=== PATIENT | male | born 1965 | race Hispanic/Latino ===

== ENCOUNTER 2019-03-10 16:28 | Inpatient (IN) | payer MEDICARE ==
[2019-03-10] MEDS ORDERED: TYLENOL PO ONE (17:49)
[2019-03-10 18:17] LABS: Hematocrit 23.2 % (35.5-45.6); Hemoglobin 7.9 gm/dl (11.8-15.2); Mean Corpuscular HGB Conc 34 % (32-34); Mean Corpuscular Volume 94 fl (84-94); Red Blood Count 2.46 M/mm3 (3.65-5.03); Red Cell Distribution Width 18.2 % (13.2-15.2)
[2019-03-10 18:27] LABS: Platelet Count 47 K/mm3 (140-440)
[2019-03-10 18:28] LABS: INR 1.15 (0.87-1.13); Partial Thromboplastin Time 28.8 Sec. (24.2-36.6)
--- NOTE | 2019-03-10 18:33 | Emergency Department Report ---
ED Fever HPI - General Chief Complaint: Fever Stated Complaint: SOB/COUGH/COLD/BODY PAIN Time Seen by Provider: 03/10/19 17:47 Source: patient, old records (no old [facility]) Exam Limitations: no limitations - History of Present Illness Initial Comments: 54-year-old male with a past medical history diabetes, hypertension, chronic renal insufficency, CAD with stent x2 placement to have signs of generalized body aches, fevers, cough, sore throat, and congestion. Patient received albuterol neb 5 mg prior to arrival via EMS. He denies history of wheezing or chronic lung disease. Patient cough is productive of dean sputum and he denies hemoptysis. He has denies recent travel, sick contacts, smoking history, receiving flu shot, or pneumonia shot this season. Patient states he takes blood thinners. Medication list reviewed and patient is on aspirin and Plavix. Pt is a poor historian. Patient's family showed up at 9:15 PM. His daughter and sister at the bedside. Patient lives with the sister but speaks to the daughter daily. Daughter states that he had in abscessed tooth and complained of some chills and that he couldn't get warm today. Patient did not complain of dental pain during my examination. Sister states that he's been complaining of generalized body aches for the past month but today he complained of chills and had some body shakes. He is recently insured and has recently been receiving outpatient workup with a variety of doctors including a primary care doctor, level vial marker, and kidney specialist in the last several weeks. He was diagnosed with "stage III" kidney disease last year at [facility] and just initiated follow-up not he has insurance. Primary care doctor is Dr Xiong. Net Software Engineer may be asha heart, unsure of kidneys specialist at this time. ED Review of Systems ROS: Stated complaint: SOB/COUGH/COLD/BODY PAIN Other details as noted in HPI Comment: All other systems reviewed and negative ED Past Medical Hx - Past Medical History Previous Medical History?: Yes Hx Hypertension: Yes Hx Diabetes: Yes - Surgical History Past Surgical History?: Yes Hx Coronary Stent: Yes - Social History Smoking Status: Never Smoker Substance Use Type: None - Medications Home Medications: Home Medications Medication Instructions Recorded Confirmed Last Taken Type Allopurinol [Zyloprim] 300 mg PO DAILY 03/10/19 03/10/19 Unknown History Aspirin [Adult Aspirin] 81 mg PO DAILY 03/10/19 03/10/19 Unknown History Atorvastatin [Lipitor Tab] 80 mg PO DAILY 03/10/19 03/10/19 Unknown History Carvedilol [Coreg] 12.5 mg PO BID 03/10/19 03/10/19 Unknown History Clopidogrel [Plavix] 75 mg PO DAILY 03/10/19 03/10/19 Unknown History Gabapentin [Neurontin] 300 mg PO BID 03/10/19 03/10/19 Unknown History Insulin Lispro Protamin/Lispro 33 unit SQ BID 03/10/19 03/10/19 Unknown History [Humalog Mix 75-25 Vial] Lisinopril [Zestril TAB] 10 mg PO DAILY 03/10/19 03/10/19 Unknown History Pantoprazole [Protonix] 40 mg PO DAILY 03/10/19 03/10/19 Unknown History Sitagliptin Phosphate [Januvia] 50 mg PO DAILY 03/10/19 03/10/19 Unknown History ED Physical Exam - General Limitations: No Limitations - Other Other exam information: General: No limitations, patient is alert in no acute distress Head exam: Atraumatic, normocephalic Eyes exam: Normal appearance, pupils equal reactive to light, extraocular movements intact ENT: Moist mucous membrane, normal oropharynx without pharyngeal exudates or edema Neck exam: Normal inspection, full range of motion, no meningismus nontender Respiratory exam: Clear to auscultation bilateral, no wheezes, rales, crackles Cardiovascular: Normal rate and rhythm Abdomen: Soft, nondistended, and nontender, with normal bowel sounds, no rebound, or guarding Rectal: Guaiac negative brown stool Extremity: Full range of motion normal inspection no deformity Back: Normal Inspection, full range of motion, no tenderness Neurologic: Alert, oriented x3, cranial nerves intact, no motor or sensory deficit Psychiatric: normal affect, normal mood Skin: Warm, dry, intact ED Course Vital Signs 03/10/19 03/10/19 03/10/19 17:28 17:30 17:31 Temperature 102.4 F H Pulse Rate 106 H Respiratory 24 Rate Blood Pressure 165/60 Blood Pressure 165/60 [Left] O2 Sat by Pulse 93 99 92 Oximetry 03/10/19 03/10/19 03/10/19 17:45 18:00 18:16 Temperature Pulse Rate 114 H Respiratory 19 Rate Blood Pressure 185/135 134/116 176/78 Blood Pressure [Left] O2 Sat by Pulse 84 Oximetry 03/10/19 03/10/19 03/10/19 18:31 18:43 18:45 Temperature Pulse Rate 104 H 103 H Respiratory 27 H 19 Rate Blood Pressure 172/79 134/116 Blood Pressure [Left] O2 Sat by Pulse 88 99 Oximetry 03/10/19 03/10/19 03/10/19 19:01 19:15 19:30 Temperature Pulse Rate Respiratory 19 17 Rate Blood Pressure 134/116 94/53 94/53 Blood Pressure [Left] O2 Sat by Pulse 61 L 88 62 L Oximetry 03/10/19 03/10/19 03/10/19 19:52 20:00 20:49 Temperature Pulse Rate 100 H 90 79 Respiratory 22 15 Rate Blood Pressure 106/64 Blood Pressure 94/53 [Left] O2 Sat by Pulse 94 100 99 Oximetry 03/10/19 03/10/19 03/10/19 21:00 21:15 21:30 Temperature Pulse Rate 78 76 80 Respiratory 15 17 12 Rate Blood Pressure 99/26 98/34 107/37 Blood Pressure [Left] O2 Sat by Pulse 100 100 Oximetry 03/10/19 03/10/19 03/10/19 21:32 21:45 22:13 Temperature Pulse Rate 81 79 Respiratory 18 14 Rate Blood Pressure 98/50 96/42 Blood Pressure [Left] O2 Sat by Pulse 100 100 100 Oximetry 03/10/19 03/10/19 03/10/19 22:15 22:30 22:45 Temperature Pulse Rate 81 80 80 Respiratory 21 16 18 Rate Blood Pressure 97/35 119/38 113/33 Blood Pressure [Left] O2 Sat by Pulse 100 100 100 Oximetry 03/10/19 03/10/19 03/10/19 23:00 23:15 23:31 Temperature Pulse Rate 80 80 77 Respiratory 18 18 51 H Rate Blood Pressure 119/37 123/35 110/92 Blood Pressure [Left] O2 Sat by Pulse 100 100 88 Oximetry 03/10/19 03/10/19 03/11/19 23:45 23:54 00:00 Temperature Pulse Rate 84 Respiratory 18 17 21 Rate Blood Pressure 120/65 98/50 144/48 Blood Pressure [Left] O2 Sat by Pulse 100 100 100 Oximetry 03/11/19 03/11/19 03/11/19 00:05 00:15 00:30 Temperature Pulse Rate 84 81 82 Respiratory 18 20 Rate Blood Pressure 144/48 144/48 139/46 Blood Pressure [Left] O2 Sat by Pulse 100 100 100 Oximetry 03/11/19 03/11/19 03/11/19 00:45 01:01 01:15 Temperature Pulse Rate 84 90 Respiratory 35 H 40 H 39 H Rate Blood Pressure 152/43 136/89 140/78 Blood Pressure [Left] O2 Sat by Pulse 100 97 97 Oximetry 03/11/19 01:31 Temperature Pulse Rate Respiratory 38 H Rate Blood Pressure 97/57 Blood Pressure [Left] O2 Sat by Pulse 98 Oximetry - Reevaluation(s) Reevaluation #1: 03/10/19 21:30 At 19:40 pt was receiving portable x-ray. X-ray tech supports the patient was lying on his right side. Patient was supposed to be on oxygen via nasal cannula but patient kept taking oxygen off his face. He complained of feeling short of breath and had difficulty repositioning on his back for x-ray. They came out to get help, when she went back in the room patient was unresponsive, apneic, and without a palpable pulse. ACLS initiated with chest compressions and assisted [id number] ventilation. Patient was transported to a resuscitation room. Patient had a PEA rhythm. Patient was intubated and 2 doses of epinephrine were administrated then patient had return of spontaneous circulation. Initial blood pressure was normal but then subsequently dropped despite 2 L of normal saline. Third liter ordered and Levophed initiated with improvement in MAP. Reevaluation #2: 03/10/19 23:42 Patient has synchronized jerking movements noted to upper and lower extremities after NG tube placement. Ativan 1 mg dose ordered Reevaluation #3: 03/10/19 23:46 CAT scan and chest x-ray reports received. Requested an addendum to include comment for regarding central line position - Consultations Consultation #1: 03/10/19 22:05 case d/w DR Lor Downs with [facility] regarding post arrest rhythm. will consult - Central Line Placement Left IJ Consent Obtained: emergent situation Time Out Performed: Yes Patient Placed on Monitor/Pulse Ox: Yes Prep: mask, gown, gloves, other Central Line Prep: Chlorhexidine scrub, sterile drapes applied Local Anesthesia Used: Lidocaine 1% Amount of Anesthesia Used (mls): 5 Ultrasound Used for Placement: Yes Central Line Lumen Inserted: triple Bloods Obtained for Lab: Yes Central Line Position: good blood return, all ports aspirated, flus Dressing Applied: Tegaderm Post Procedure X-Ray: tip of catheter in good p Patient Tolerated Procedure: well Complications: none - Intubation Time Out Performed: Yes Sedative: none Paralytic: other (none) Laryngoscope: Janny Size: 3 ET Tube Size: 7.5 Tube Secured Depth (cm): 25 (readjusted to 23 after xray) Tube Secured Location: lips Tube Placement Confirmation: visualized tube passing t, equal breath sounds bilat, no breath sounds over epi, confirmation by capnometr Patient Tolerated Procedure: well Intubation Complications: none ED Medical Decision Making - Lab Data Result diagrams: 03/10/19 17:57 03/10/19 17:57 Lab Results 03/10/19 03/10/19 03/10/19 Range/Units 17:57 17:57 17:57 WBC 1.2 L* (4.5-11.0) K/mm3 RBC 2.46 L (3.65-5.03) M/mm3 Hgb 7.9 L (11.8-15.2) gm/dl Hct 23.2 L (35.5-45.6) % MCV 94 (84-94) fl MCH 32 (28-32) pg MCHC 34 (32-34) % RDW 18.2 H (13.2-15.2) % Plt Count 47 L (140-440) K/mm3 [place] % (Auto) Combination Window Installer Eos % (Auto) 0.4 (0.0-4.3) % [place] # 0.9 H (0.0-0.8) K/mm3 Eos # 0.0 (0.0-0.4) K/mm3 Baso # 0.0 (0.0-0.1) K/mm3 Add Manual Diff Complete Total Counted 100 Seg Neuts % (Manual) 6.0 L (40.0-70.0) % Band Neutrophils % 0 % Lymphocytes % (Manual) 74.0 H (13.4-35.0) % Reactive Lymphs % (Man) 0 % Monocytes % (Manual) 20.0 H (0.0-7.3) % Eosinophils % (Manual) 0 (0.0-4.3) % Basophils % (Manual) 0 (0.0-1.8) % Metamyelocytes % 0 % Myelocytes % 0 % Promyelocytes % 0 % Blast Cells % 0 % Nucleated RBC % Not Reportable Seg Neutrophils # 0.1 L (1.8-7.7) K/mm3 Seg Neutrophils # Man 0.1 L (1.8-7.7) K/mm3 Band Neutrophils # 0.0 K/mm3 Lymphocytes # (Manual) 0.9 L (1.2-5.4) K/mm3 Abs React Lymphs (Man) 0.0 K/mm3 Monocytes # (Manual) 0.2 (0.0-0.8) K/mm3 Eosinophils # (Manual) 0.0 (0.0-0.4) K/mm3 Basophils # (Manual) 0.0 (0.0-0.1) K/mm3 Metamyelocytes # 0.0 K/mm3 Myelocytes # 0.0 K/mm3 Promyelocytes # 0.0 K/mm3 Blast Cells # 0.0 K/mm3 WBC Morphology Not Reportable Hypersegmented Neuts Not Reportable Hyposegmented Neuts Not Reportable Hypogranular Neuts Not Reportable Smudge Cells Not Reportable Toxic Granulation Not Reportable Toxic Vacuolation Not Reportable Dohle Bodies Not Reportable Pelger-Huet Anomaly Not Reportable Roque Rods Not Reportable Platelet Estimate Appears decreased Clumped Platelets Not Reportable Plt Clumps, EDTA Not Reportable Large Platelets Not Reportable Giant Platelets Not Reportable Platelet Satelliting Not Reportable Plt Morphology Comment Not Reportable RBC Morphology Not Reportable Dimorphic RBCs Not Reportable Polychromasia Not Reportable Hypochromasia Not Reportable Poikilocytosis 1+ Anisocytosis 1+ Microcytosis Not Reportable Macrocytosis Not Reportable Spherocytes Not Reportable Pappenheimer Bodies Not Reportable Sickle Cells Not Reportable Target Cells Not Reportable Tear Drop Cells Not Reportable Ovalocytes Few Helmet Cells Not Reportable Andersen-Clara Bodies Not Reportable Maiden Rings Not Reportable [place] Cells Not Reportable Bite Cells Not Reportable Crenated Cell Not Reportable Elliptocytes Few Acanthocytes (Spur) Not Reportable Rouleaux Not Reportable Hemoglobin C Crystals Not Reportable Schistocytes Not Reportable Malaria parasites Not Reportable Matt Bodies Not Reportable Hem Pathologist Commnt Sent to pathology PT (12.2-14.9) Sec. INR (0.87-1.13) APTT (24.2-36.6) Sec. POC ABG pH (7.35-7.45) POC ABG pCO2 (35-45) POC ABG pO2 (80-105) POC ABG HCO3 (22-26 mml/L) POC ABG Total CO2 (23-27mmol/L) POC ABG O2 Sat POC ABG Base Excess ((-2) - (+3)mmol/L) VBG pH (7.320-7.420) FiO2 % Sodium 140 (137-145) mmol/L Potassium 4.5 (3.6-5.0) mmol/L Chloride 101.1 (98-107) mmol/L Carbon Dioxide 23 (22-30) mmol/L Anion Gap 20 mmol/L BUN 46 H (9-20) mg/dL Creatinine 2.9 H (0.8-1.5) mg/dL Estimated GFR 23 ml/min BUN/Creatinine Ratio 16 % Glucose 200 H (75-100) mg/dL POC Glucose (70-105) Lactic Acid 2.50 H* (0.7-2.0) mmol/L Calcium 7.6 L (8.4-10.2) mg/dL Total Bilirubin 0.90 (0.1-1.2) mg/dL AST 23 (5-40) units/L ALT 21 (7-56) units/L Alkaline Phosphatase 128 (35-129) units/L Total Protein 6.5 (6.3-8.2) g/dL Albumin 3.2 L (3.9-5) g/dL Albumin/Globulin Ratio 1.0 % Influenza A (Rapid) (Negative) Influenza B (Rapid) (Negative) Blood Type Antibody Screen 03/10/19 03/10/19 03/10/19 Range/Units 17:57 17:57 18:00 WBC (4.5-11.0) K/mm3 RBC (3.65-5.03) M/mm3 Hgb (11.8-15.2) gm/dl Hct (35.5-45.6) % MCV (84-94) fl MCH (28-32) pg MCHC (32-34) % RDW (13.2-15.2) % Plt Count (140-440) K/mm3 [place] % (Auto) Eos % (Auto) (0.0-4.3) % [place] # (0.0-0.8) K/mm3 Eos # (0.0-0.4) K/mm3 Baso # (0.0-0.1) K/mm3 Add Manual Diff Total Counted Seg Neuts % (Manual) (40.0-70.0) % Band Neutrophils % % Lymphocytes % (Manual) (13.4-35.0) % Reactive Lymphs % (Man) % Monocytes % (Manual) (0.0-7.3) % Eosinophils % (Manual) (0.0-4.3) % Basophils % (Manual) (0.0-1.8) % Metamyelocytes % % Myelocytes % % Promyelocytes % % Blast Cells % % Nucleated RBC % Seg Neutrophils # (1.8-7.7) K/mm3 Seg Neutrophils # Man (1.8-7.7) K/mm3 Band Neutrophils # K/mm3 Lymphocytes # (Manual) (1.2-5.4) K/mm3 Abs React Lymphs (Man) K/mm3 Monocytes # (Manual) (0.0-0.8) K/mm3 Eosinophils # (Manual) (0.0-0.4) K/mm3 Basophils # (Manual) (0.0-0.1) K/mm3 Metamyelocytes # K/mm3 Myelocytes # K/mm3 Promyelocytes # K/mm3 Blast Cells # K/mm3 WBC Morphology Hypersegmented Neuts Hyposegmented Neuts Hypogranular Neuts Smudge Cells Toxic Granulation Toxic Vacuolation Dohle Bodies Pelger-Huet Anomaly Roque Rods Platelet Estimate Clumped Platelets Plt Clumps, EDTA Large Platelets Giant Platelets Platelet Satelliting Plt Morphology Comment RBC Morphology Dimorphic RBCs Polychromasia Hypochromasia Poikilocytosis Anisocytosis Microcytosis Macrocytosis Spherocytes Pappenheimer Bodies Sickle Cells Target Cells Tear Drop Cells Ovalocytes Helmet Cells Andersen-Clara Bodies Maiden Rings [place] Cells Bite Cells Crenated Cell Elliptocytes Acanthocytes (Spur) Rouleaux Hemoglobin C Crystals Schistocytes Malaria parasites Matt Bodies Hem Pathologist Commnt PT 14.4 (12.2-14.9) Sec. INR 1.15 H (0.87-1.13) APTT 28.8 (24.2-36.6) Sec. POC ABG pH (7.35-7.45) POC ABG pCO2 (35-45) POC ABG pO2 (80-105) POC ABG HCO3 (22-26 mml/L) POC ABG Total CO2 (23-27mmol/L) POC ABG O2 Sat POC ABG Base Excess ((-2) - (+3)mmol/L) VBG pH 7.381 (7.320-7.420) FiO2 % Sodium (137-145) mmol/L Potassium (3.6-5.0) mmol/L Chloride (98-107) mmol/L Carbon Dioxide (22-30) mmol/L Anion Gap mmol/L BUN (9-20) mg/dL Creatinine (0.8-1.5) mg/dL Estimated GFR ml/min BUN/Creatinine Ratio % Glucose (75-100) mg/dL POC Glucose (70-105) Lactic Acid (0.7-2.0) mmol/L Calcium (8.4-10.2) mg/dL Total Bilirubin (0.1-1.2) mg/dL AST (5-40) units/L ALT (7-56) units/L Alkaline Phosphatase (35-129) units/L Total Protein (6.3-8.2) g/dL Albumin (3.9-5) g/dL Albumin/Globulin Ratio % Influenza A (Rapid) Negative (Negative) Influenza B (Rapid) Negative (Negative) Blood Type Antibody Screen 03/10/19 03/10/19 03/10/19 Range/Units 18:01 18:52 19:16 WBC (4.5-11.0) K/mm3 RBC (3.65-5.03) M/mm3 Hgb (11.8-15.2) gm/dl Hct (35.5-45.6) % MCV (84-94) fl MCH (28-32) pg MCHC (32-34) % RDW (13.2-15.2) % Plt Count (140-440) K/mm3 [place] % (Auto) Eos % (Auto) (0.0-4.3) % [place] # (0.0-0.8) K/mm3 Eos # (0.0-0.4) K/mm3 Baso # (0.0-0.1) K/mm3 Add Manual Diff Total Counted Seg Neuts % (Manual) (40.0-70.0) % Band Neutrophils % % Lymphocytes % (Manual) (13.4-35.0) % Reactive Lymphs % (Man) % Monocytes % (Manual) (0.0-7.3) % Eosinophils % (Manual) (0.0-4.3) % Basophils % (Manual) (0.0-1.8) % Metamyelocytes % % Myelocytes % % Promyelocytes % % Blast Cells % % Nucleated RBC % Seg Neutrophils # (1.8-7.7) K/mm3 Seg Neutrophils # Man (1.8-7.7) K/mm3 Band Neutrophils # K/mm3 Lymphocytes # (Manual) (1.2-5.4) K/mm3 Abs React Lymphs (Man) K/mm3 Monocytes # (Manual) (0.0-0.8) K/mm3 Eosinophils # (Manual) (0.0-0.4) K/mm3 Basophils # (Manual) (0.0-0.1) K/mm3 Metamyelocytes # K/mm3 Myelocytes # K/mm3 Promyelocytes # K/mm3 Blast Cells # K/mm3 WBC Morphology Hypersegmented Neuts Hyposegmented Neuts Hypogranular Neuts Smudge Cells Toxic Granulation Toxic Vacuolation Dohle Bodies Pelger-Huet Anomaly Roque Rods Platelet Estimate Clumped Platelets Plt Clumps, EDTA Large Platelets Giant Platelets Platelet Satelliting Plt Morphology Comment RBC Morphology Dimorphic RBCs Polychromasia Hypochromasia Poikilocytosis Anisocytosis Microcytosis Macrocytosis Spherocytes Pappenheimer Bodies Sickle Cells Target Cells Tear Drop Cells Ovalocytes Helmet Cells Andersen-Clara Bodies Maiden Rings [place] Cells Bite Cells Crenated Cell Elliptocytes Acanthocytes (Spur) Rouleaux Hemoglobin C Crystals Schistocytes Malaria parasites Matt Bodies Hem Pathologist Commnt PT (12.2-14.9) Sec. INR (0.87-1.13) APTT (24.2-36.6) Sec. POC ABG pH (7.35-7.45) POC ABG pCO2 (35-45) POC ABG pO2 (80-105) POC ABG HCO3 (22-26 mml/L) POC ABG Total CO2 (23-27mmol/L) POC ABG O2 Sat POC ABG Base Excess ((-2) - (+3)mmol/L) VBG pH (7.320-7.420) FiO2 % Sodium (137-145) mmol/L Potassium (3.6-5.0) mmol/L Chloride (98-107) mmol/L Carbon Dioxide (22-30) mmol/L Anion Gap mmol/L BUN (9-20) mg/dL Creatinine (0.8-1.5) mg/dL Estimated GFR ml/min BUN/Creatinine Ratio % Glucose (75-100) mg/dL POC Glucose 234 H (70-105) Lactic Acid 2.80 H* (0.7-2.0) mmol/L Calcium (8.4-10.2) mg/dL Total Bilirubin (0.1-1.2) mg/dL AST (5-40) units/L ALT (7-56) units/L Alkaline Phosphatase (35-129) units/L Total Protein (6.3-8.2) g/dL Albumin (3.9-5) g/dL Albumin/Globulin Ratio % Influenza A (Rapid) (Negative) Influenza B (Rapid) (Negative) Blood Type A POSITIVE Antibody Screen Negative 03/10/19 03/10/19 03/10/19 Range/Units 20:56 21:32 23:29 WBC (4.5-11.0) K/mm3 RBC (3.65-5.03) M/mm3 Hgb (11.8-15.2) gm/dl Hct (35.5-45.6) % MCV (84-94) fl MCH (28-32) pg MCHC (32-34) % RDW (13.2-15.2) % Plt Count (140-440) K/mm3 [place] % (Auto) Eos % (Auto) (0.0-4.3) % [place] # (0.0-0.8) K/mm3 Eos # (0.0-0.4) K/mm3 Baso # (0.0-0.1) K/mm3 Add Manual Diff Total Counted Seg Neuts % (Manual) (40.0-70.0) % Band Neutrophils % % Lymphocytes % (Manual) (13.4-35.0) % Reactive Lymphs % (Man) % Monocytes % (Manual) (0.0-7.3) % Eosinophils % (Manual) (0.0-4.3) % Basophils % (Manual) (0.0-1.8) % Metamyelocytes % % Myelocytes % % Promyelocytes % % Blast Cells % % Nucleated RBC % Seg Neutrophils # (1.8-7.7) K/mm3 Seg Neutrophils # Man (1.8-7.7) K/mm3 Band Neutrophils # K/mm3 Lymphocytes # (Manual) (1.2-5.4) K/mm3 Abs React Lymphs (Man) K/mm3 Monocytes # (Manual) (0.0-0.8) K/mm3 Eosinophils # (Manual) (0.0-0.4) K/mm3 Basophils # (Manual) (0.0-0.1) K/mm3 Metamyelocytes # K/mm3 Myelocytes # K/mm3 Promyelocytes # K/mm3 Blast Cells # K/mm3 WBC Morphology Hypersegmented Neuts Hyposegmented Neuts Hypogranular Neuts Smudge Cells Toxic Granulation Toxic Vacuolation Dohle Bodies Pelger-Huet Anomaly Roque Rods Platelet Estimate Clumped Platelets Plt Clumps, EDTA Large Platelets Giant Platelets Platelet Satelliting Plt Morphology Comment RBC Morphology Dimorphic RBCs Polychromasia Hypochromasia Poikilocytosis Anisocytosis Microcytosis Macrocytosis Spherocytes Pappenheimer Bodies Sickle Cells Target Cells Tear Drop Cells Ovalocytes Helmet Cells Andersen-Clara Bodies Maiden Rings [place] Cells Bite Cells Crenated Cell Elliptocytes Acanthocytes (Spur) Rouleaux Hemoglobin C Crystals Schistocytes Malaria parasites Matt Bodies Hem Pathologist Commnt PT (12.2-14.9) Sec. INR (0.87-1.13) APTT (24.2-36.6) Sec. POC ABG pH 7.274 L 7.386 (7.35-7.45) POC ABG pCO2 46.6 H 36.6 (35-45) POC ABG pO2 315 H (80-105) POC ABG HCO3 21.6 21.9 (22-26 mml/L) POC ABG Total CO2 23 23 (23-27mmol/L) POC ABG O2 Sat 71 100 POC ABG Base Excess -5 -3 ((-2) - (+3)mmol/L) VBG pH (7.320-7.420) FiO2 100 100 % Sodium (137-145) mmol/L Potassium (3.6-5.0) mmol/L Chloride (98-107) mmol/L Carbon Dioxide (22-30) mmol/L Anion Gap mmol/L BUN (9-20) mg/dL Creatinine (0.8-1.5) mg/dL Estimated GFR ml/min BUN/Creatinine Ratio % Glucose (75-100) mg/dL POC Glucose 237 H (70-105) Lactic Acid (0.7-2.0) mmol/L Calcium (8.4-10.2) mg/dL Total Bilirubin (0.1-1.2) mg/dL AST (5-40) units/L ALT (7-56) units/L Alkaline Phosphatase (35-129) units/L Total Protein (6.3-8.2) g/dL Albumin (3.9-5) g/dL Albumin/Globulin Ratio % Influenza A (Rapid) (Negative) Influenza B (Rapid) (Negative) Blood Type Antibody Screen - EKG Data -: EKG Interpreted by Me (anterior infarct age unknown, prolonged OK interval) EKG shows normal: sinus rhythm, axis (qrs -47), QRS complexes (qrsd 95), ST-T waves (no stei, ) Rate: tachycardia (105) - EKG Data 03/10/19 21:48 The rest EKG shows atrial fibrillation rate 79 with left axis deviation. QRS axis -30, QRS duration 77. No ST elevation DC. - Radiology Data Radiology results: report reviewed PROCEDURE: XR CHEST 1V AP TECHNIQUE: Chest radiograph single view. HISTORY: fever, cough COMPARISONS: None . FINDINGS: The ET tube extends into the right mainstem bronchus and needs to be repositioned at least 2 cm proximally. The cardiac silhouette is enlarged. There is no evidence of airspace consolidation or pleural effusions. The pulmonary vasculature is within normal limits. IMPRESSION: ET tube extends into the right mainstem bronchus and needs to be repositioned at least 2 cm proximally. Cardiomegaly. PROCEDURE: XR CHEST 1V AP TECHNIQUE: Chest radiograph single view. HISTORY: s/p central line placement and et adjustment COMPARISONS: None . FINDINGS: Compared with today's earlier exam There is an ET tube present. Tube is been repositioned and now lies approximately midway between the thoracic inlet and the maureen. Otherwise stable appearance of the chest. IMPRESSION: ET tube appears in satisfactory position. PROCEDURE: CT CHEST WO CON TECHNIQUE: CT chest without contrast HISTORY: sob, fever, s/p cardiac arrest COMPARISONS: FINDINGS: No evidence for mediastinal mass or hematoma. Nonenhanced images of the thoracic aorta unremarkable. There is a pericardial effusion measuring up to 1.4 cm in transverse diameter. There is posterior atelectasis both lungs. Minimal pleural fluid collection noted. ET tube present tip in satisfactory position approximately midway between the thoracic inlet. Noncontrast images of the upper abdomen are IMPRESSION: Small pericardial effusion ET in satisfactory position. Atelectasis posterior aspects of both lungs. PROCEDURE: CT HEAD/BRAIN WO CON TECHNIQUE: Computerized tomography of the head was performed without contrast material. CT DOSE LENGTH PRODUCT: 1049.3 mGycm HISTORY: ams, cardiac arrest COMPARISONS: None . FINDINGS: There is some indistinctness and loss of dean-white matter differentiation and indistinct visualization of the basal ganglia. This is nonspecific finding but may be seen with diffuse hypoxic ischemic brain injury. No acute intra or extra-axial hemorrhage is identified. No evidence for midline shift or mass effect. Bony calvarium is intact. Mucosal thickening of the maxillary sinuses noted. IMPRESSION: Nonspecific findings with some indistinctness of the basal ganglia and dean-white matter differentiation which may be seen with hypoxic ischemic brain injury - Medical Decision Making Patient had a cardiopulmonary arrest during x-ray attempt. Positive return of spontaneous circulation with resuscitation efforts in the ED. Fever, patient developed some involuntary jerking movements of upper or lower extremities after OG tube placement and has CT head findings suspicious for hypoxic injury. Patient is requiring vasopressor support to maintain a map greater than 65. Propofol was ordered but not initiated since patient did not have any purposeful movement intubation. 1 mg of Ativan was ordered 1 began having jerking movements after OG tube placement. Patient received IV fluid boluses and broad- spectrum antibiotics with vancomycin and Zosyn. He is pancytopenic without any signs of rectal bleeding on exam. Renal insufficiency noted and family reports a history of chronic renal sufficiency however, baseline creatinine is not available at this time. Postarrest rhythm now appears to be A. fib that is rate controlled. This was discussed with level vial marker and consult ordered. Overall patient has a very poor prognosis. He requires ICU admission. Hospitalist informed. possible uti on ua cath result - Differential Diagnosis sepsis, pneumonia, bronchitis, CHF, viral syndrome, UTI Critical Care Time: Yes Critical care time in (mins) excluding proc time.: 65 Critical care attestation.: If time is entered above; I have spent that time in minutes in the direct care of this critically ill patient, excluding procedure time. ED Disposition Clinical Impression: Cardiopulmonary arrest with successful resuscitation, Febrile illness, Pancytopenia, Dyspnea, UTI (urinary tract infection) Disposition: DC-[id number] OP ADMIT IP TO THIS HOSP Is pt being admited?: Yes Condition: Poor Time of Disposition: 23:52 (Dr Downs/hosp)
[2019-03-10] MEDS ORDERED: ZOSYN/NS 4.5GM/100ML 4.5 GM/100 ML VIAL IV ONE (18:37)
[2019-03-10 18:39] LABS: Eosinophils % (Auto) 0.4 % (0.0-4.3); Monocytes # (Auto) 0.9 K/mm3 (0.0-0.8)
[2019-03-10] MEDS ORDERED: NACL 0.9% 1000 ML 2,000 ML IV ONE (18:41)
[2019-03-10 18:43] LABS: Albumin 3.2 g/dL (3.9-5); Calcium 7.6 mg/dL (8.4-10.2)
[2019-03-10] MEDS ORDERED: NACL 0.9% 1000 ML 1,000 ML IV ONE ×3 (18:52→21:01)
[2019-03-10] MEDS ORDERED: VANCOMYCIN/NS 1 GM/250 ML 1 GM/250 ML BAG IV ONE (19:07)
[2019-03-10 19:17] LABS: Basophils % (Manual) 0 % (0.0-1.8); Eosinophils % (Manual) 0 % (0.0-4.3); Total Cells Counted 100
[2019-03-10 19:19] LABS: Anisocytosis 1+; Ovalocytes Few; Platelet Estimate Appears Decreased; Poikilocytosis 1+
[2019-03-10] MEDS ORDERED: ARTIFICIAL TEARS OPHTH OINT OU PRN (19:50)
[2019-03-10] MEDS ORDERED: VASELINE LIP THERAPY TP PRN (19:50)
[2019-03-10] MEDS ORDERED: VANCOMYCIN 2,000 MG in NACL 0.9% 500 ML 500 ML IV ONE (20:00)
--- NOTE | 2019-03-10 20:09 | XRay Report ---
PROCEDURE: XR CHEST 1V AP TECHNIQUE: Chest radiograph single view. HISTORY: fever, cough COMPARISONS: None . FINDINGS: The ET tube extends into the right mainstem bronchus and needs to be repositioned at least 2 cm proxi antonio. The cardiac silhouette is enlarged. There is no evidence of airspace consolidation or pleural effusions. The pulmonary vasculature is within normal limits. IMPRESSION: ET tube extends into the right mainstem bronchus and needs to be repositioned at least 2 cm proximally. Cardiomegaly. This document is electronically signed by Rohan Munguia MD., March 10 2019 08:07:09 PM ET
[2019-03-10] MEDS ORDERED: LEVOPHED DRIP 4 MG/NS 250 ML 4 MG/250 ML BAG IV ONE (20:49)
[2019-03-10] MEDS: LEVOPHED DRIP 4 MG/NS 250 ML 4 MG/250 ML BAG IV SCH ×2 (21:10→21:30)
--- NOTE | 2019-03-10 22:56 | XRay Report ---
PROCEDURE: XR CHEST 1V AP TECHNIQUE: Chest radiograph single view. HISTORY: s/p central line placement and et adjustment COMPARISONS: None . FINDINGS: Compared with today's earlier exam There is an ET tube present. Tube is been repositioned and now lies approximately midway between the thoracic inlet and the maureen. Otherwise stable appearance of the chest. IMPRESSION: ET tube appears in satisfactory position. This document is electronically signed by Dandre Milligan MD., March 10 2019 10:54:37 PM ET
--- NOTE | 2019-03-10 23:04 | Cat Scan Report ---
PROCEDURE: CT CHEST WO CON TECHNIQUE: CT chest without contrast HISTORY: sob, fever, s/p cardiac arrest COMPARISONS: FINDINGS: No evidence for mediastinal mass or hematoma. Nonenhanced images of the thoracic aorta unremarkable. There is a pericardial effusion measuring up to 1.4 cm in transverse diameter. There is posterior atelectasis both lungs. Minimal pleural fluid collection noted. ET tube present tip in satisfactory position approximately midway between the thoracic inlet. Noncontrast images of the upper abdomen are IMPRESSION: Small pericardial effusion ET in satisfactory position. Atelectasis posterior aspects of both lungs. This document is electronically signed by Dandre Milligan MD., March 10 2019 11:02:50 PM ET
--- NOTE | 2019-03-10 23:16 | Cat Scan Report ---
PROCEDURE: CT HEAD/BRAIN WO CON TECHNIQUE: Computerized tomography of the head was performed without contrast material. CT DOSE LENGTH PRODUCT: 1049.3 mGycm HISTORY: ams, cardiac arrest COMPARISONS: None . FINDINGS: There is some indistinctness and loss of dean-white matter differentiation and indistinct visualizati on of the basal ganglia. This is nonspecific finding but may be seen with diffuse hypoxic ischemic br ain injury. No acute intra or extra-axial hemorrhage is identified. No evidence for midline shift or mass effect. Bony calvarium is intact. Mucosal thickening of the maxillary sinuses noted. IMPRESSION: Nonspecific findings with some indistinctness of the basal ganglia and dean-white matter differentiation which may be seen with hypoxic ischemic brain injury This document is electronically signed by Dandre Milligan MD., March 10 2019 11:14:18 PM ET
[2019-03-10] MEDS ORDERED: ATIVAN ONE (23:33)
[2019-03-10] MEDS ORDERED: ATIVAN IV ONE (23:42)
[2019-03-10 23:45] LABS: Amorphous Crystals,Urine Few; Bilirubin,Urine NEG (Negative); Blood,Urine MOD (Negative); Color,Urine Amber (Yellow)
[2019-03-10 23:48] LABS: Protein,Urine >500 mg/dL (Negative)
[2019-03-11] MEDS ORDERED: SODIUM CHLORIDE FLUSH SYRINGE 10 ML IV PRN (00:40)
[2019-03-11] MEDS ORDERED: ZOFRAN IV PRN (00:40)
[2019-03-11] MEDS ORDERED: D50W (25GM) Syringe IV PRN (00:44)
--- NOTE | 2019-03-11 00:56 | History and Physical Report ---
History of Present Illness Date of examination: 03/11/19 History of present illness: This is a 54-year-old man admitted history of hypertension, diabetes, chronic kidney disease, coronary artery disease was brought to the emergency room for evaluation of shortness of breath, generalized body aches. and daughter at bedside state that he's been sick for a month and a half. Also complaining of chills. She states that he had diarrhea for one month, got worse. + Decrease oral intake Chest x-ray was ordered in the emergency room, while the renal dialysis technician was trying to get help to get the x-ray done, upon return to the room, the patient was not breathing. He was successfully resuscitated, intubated. He was started on vancomycin, Zosyn and levophed drip. Review of systems is unobtainable PAST MEDICAL HISTORY: hypertension, diabetes, chronic kidney disease, coronary artery disease PAST SURGICAL HISTORY: None SOCIAL HISTORY:Quit alcohol 3 months ago, no drugs, tobacco FAMILY HISTORY: Hypertension Medications and Allergies Allergies Allergy/AdvReac Type Severity Reaction Status Date / Time No Known Allergies Allergy Verified 03/10/19 17:37 Home Medications Medication Instructions Recorded Confirmed Last Taken Type Allopurinol [Zyloprim] 300 mg PO DAILY 03/10/19 03/10/19 Unknown History Aspirin [Adult Aspirin] 81 mg PO DAILY 03/10/19 03/10/19 Unknown History Atorvastatin [Lipitor Tab] 80 mg PO DAILY 03/10/19 03/10/19 Unknown History Carvedilol [Coreg] 12.5 mg PO BID 03/10/19 03/10/19 Unknown History Clopidogrel [Plavix] 75 mg PO DAILY 03/10/19 03/10/19 Unknown History Gabapentin [Neurontin] 300 mg PO BID 03/10/19 03/10/19 Unknown History Insulin Lispro Protamin/Lispro 33 unit SQ BID 03/10/19 03/10/19 Unknown History [Humalog Mix 75-25 Vial] Lisinopril [Zestril TAB] 10 mg PO DAILY 03/10/19 03/10/19 Unknown History Pantoprazole [Protonix] 40 mg PO DAILY 03/10/19 03/10/19 Unknown History Sitagliptin Phosphate [Januvia] 50 mg PO DAILY 03/10/19 03/10/19 Unknown History Active Meds: Active Medications Acetaminophen (Tylenol) 650 mg PO Q4H PRN PRN Reason: Pain MILD(1-3)/Fever >100.5/[place] Acetaminophen (Tylenol) 650 mg ND Q4H PRN PRN Reason: Pain MILD(1-3)/Fever >100.5/[place] Dextrose (D50w (25gm) Syringe) 50 ml IV PRN PRN PRN Reason: Hypoglycemia Hydrophilic Ointment (Vaseline Lip Therapy) 1 applic TP Q2HR PRN PRN Reason: Dry Lips Propofol (Diprivan 10 Mg/Ml) 1,000 mg in 100 mls @ 4.082 mls/hr IV TITR ROXANNE; Protocol Norepinephrine (Levophed Drip 4 Mg/Ns 250 Ml) 4 mg in 250 mls @ 7.5 mls/hr IV T ITR ROXANNE; Protocol Last Admin: 03/10/19 21:30 Dose: 3.25 mcg/min, 12.2 mls/hr Documented by: Sodium Chloride (Nacl 0.9% 1000 Ml) 1,000 mls @ 150 mls/hr IV DIRECT ROXANNE Piperacillin Sod/Tazobactam Sod (Zosyn/Ns 3.375gm/50ml) 3.375 gm in 50 mls @ 100 mls/hr IV Q8HR ROX[place] Insulin Human Lispro (Humalog) 0 unit SUB-Q Q6HR ROXANNE; Protocol Multi-Ingred Cream/Lotion/Oil/Oint (Artificial Tears Ophth Oint) 1 applic OU Q4HR PRN PRN Reason: Dry Eye(s) Ondansetron HCl (Zofran) 4 mg IV Q8H PRN PRN Reason: Nausea And Vomiting Sodium Chloride (Sodium Chloride Flush Syringe 10 Ml) 10 ml IV BID ROXANNE Sodium Chloride (Sodium Chloride Flush Syringe 10 Ml) 10 ml IV PRN PRN PRN Reason: LINE FLUSH Exam - Physical Exam Narrative exam: General Apperance: The patient lying in bed, breathing comfortable, intubated HEENT: Normocephalic, atraumatic. Pupils equally round and some reactivity to light, unable to do EOM, no sclericterus or JVD or thyromegaly or nodule. , no carotid bruit, mucous membranes moist, unable to examine oral cavity, ET tube in place Heart: S1-S2, regular is rhythm Lungs: Clear to auscultation bilaterally, breathing comfortable Abdomen:Decrease bowel sounds, soft, nondistended, no organomegaly Extremities: No edema cyanosis clubbing Skin: no rash, nodule, warm and dry Neuro: Sedated - Constitutional Vitals: Temp Pulse Resp BP Pulse Ox 102.4 F H 84 18 144/48 100 03/10/19 17:30 03/11/19 00:05 03/10/19 23:45 03/11/19 00:05 03/11/19 00:05 Results - Labs CBC & Chem 7: 03/18/19 05:45 03/19/19 06:15 Labs: Abnormal lab results 03/10/19 03/10/19 03/10/19 Range/Units 17:57 17:57 17:57 WBC 1.2 L* (4.5-11.0) K/mm3 RBC 2.46 L (3.65-5.03) M/mm3 Hgb 7.9 L (11.8-15.2) gm/dl Hct 23.2 L (35.5-45.6) % RDW 18.2 H (13.2-15.2) % Plt Count 47 L (140-440) K/mm3 [place] # 0.9 H (0.0-0.8) K/mm3 Seg Neuts % (Manual) 6.0 L (40.0-70.0) % Lymphocytes % (Manual) 74.0 H (13.4-35.0) % Monocytes % (Manual) 20.0 H (0.0-7.3) % Seg Neutrophils # 0.1 L (1.8-7.7) K/mm3 Seg Neutrophils # Man 0.1 L (1.8-7.7) K/mm3 Lymphocytes # (Manual) 0.9 L (1.2-5.4) K/mm3 INR (0.87-1.13) POC ABG pH (7.35-7.45) POC ABG pCO2 (35-45) POC ABG pO2 (80-105) BUN 46 H (9-20) mg/dL Creatinine 2.9 H (0.8-1.5) mg/dL Glucose 200 H (75-100) mg/dL POC Glucose (70-105) Lactic Acid 2.50 H* (0.7-2.0) mmol/L Calcium 7.6 L (8.4-10.2) mg/dL Albumin 3.2 L (3.9-5) g/dL Urine WBC (Auto) (0.0-6.0) /HPF 03/10/19 03/10/19 03/10/19 Range/Units 17:57 18:01 19:16 WBC (4.5-11.0) K/mm3 RBC (3.65-5.03) M/mm3 Hgb (11.8-15.2) gm/dl Hct (35.5-45.6) % RDW (13.2-15.2) % Plt Count (140-440) K/mm3 [place] # (0.0-0.8) K/mm3 Seg Neuts % (Manual) (40.0-70.0) % Lymphocytes % (Manual) (13.4-35.0) % Monocytes % (Manual) (0.0-7.3) % Seg Neutrophils # (1.8-7.7) K/mm3 Seg Neutrophils # Man (1.8-7.7) K/mm3 Lymphocytes # (Manual) (1.2-5.4) K/mm3 INR 1.15 H (0.87-1.13) POC ABG pH (7.35-7.45) POC ABG pCO2 (35-45) POC ABG pO2 (80-105) BUN (9-20) mg/dL Creatinine (0.8-1.5) mg/dL Glucose (75-100) mg/dL POC Glucose 234 H (70-105) Lactic Acid 2.80 H* (0.7-2.0) mmol/L Calcium (8.4-10.2) mg/dL Albumin (3.9-5) g/dL Urine WBC (Auto) (0.0-6.0) /HPF 03/10/19 03/10/19 03/10/19 Range/Units 20:56 21:32 23:06 WBC (4.5-11.0) K/mm3 RBC (3.65-5.03) M/mm3 Hgb (11.8-15.2) gm/dl Hct (35.5-45.6) % RDW (13.2-15.2) % Plt Count (140-440) K/mm3 [place] # (0.0-0.8) K/mm3 Seg Neuts % (Manual) (40.0-70.0) % Lymphocytes % (Manual) (13.4-35.0) % Monocytes % (Manual) (0.0-7.3) % Seg Neutrophils # (1.8-7.7) K/mm3 Seg Neutrophils # Man (1.8-7.7) K/mm3 Lymphocytes # (Manual) (1.2-5.4) K/mm3 INR (0.87-1.13) POC ABG pH 7.274 L (7.35-7.45) POC ABG pCO2 46.6 H (35-45) POC ABG pO2 315 H (80-105) BUN (9-20) mg/dL Creatinine (0.8-1.5) mg/dL Glucose (75-100) mg/dL POC Glucose (70-105) Lactic Acid (0.7-2.0) mmol/L Calcium (8.4-10.2) mg/dL Albumin (3.9-5) g/dL Urine WBC (Auto) 24.0 H (0.0-6.0) /HPF 03/10/19 Range/Units 23:29 WBC (4.5-11.0) K/mm3 RBC (3.65-5.03) M/mm3 Hgb (11.8-15.2) gm/dl Hct (35.5-45.6) % RDW (13.2-15.2) % Plt Count (140-440) K/mm3 [place] # (0.0-0.8) K/mm3 Seg Neuts % (Manual) (40.0-70.0) % Lymphocytes % (Manual) (13.4-35.0) % Monocytes % (Manual) (0.0-7.3) % Seg Neutrophils # (1.8-7.7) K/mm3 Seg Neutrophils # Man (1.8-7.7) K/mm3 Lymphocytes # (Manual) (1.2-5.4) K/mm3 INR (0.87-1.13) POC ABG pH (7.35-7.45) POC ABG pCO2 (35-45) POC ABG pO2 (80-105) BUN (9-20) mg/dL Creatinine (0.8-1.5) mg/dL Glucose (75-100) mg/dL POC Glucose 237 H (70-105) Lactic Acid (0.7-2.0) mmol/L Calcium (8.4-10.2) mg/dL Albumin (3.9-5) g/dL Urine WBC (Auto) (0.0-6.0) /HPF - Imaging and Cardiology EKG: image reviewed Chest x-ray: report reviewed CT scan - chest: report reviewed CT Scan - head: report reviewed Assessment and Plan Assessment Cardiac arrest Respiratory failure, acute Septic Shock Pancytopenia Anoxic brain injury Chronic kidney Disease, ?acute component CAD Diabetes Plan Admit to medicine Continue levophed drip, vanco, zosyn Start start IV fluid, check cardiac enzymes, echo Consult critical care, cardiology Consult ID, case discusee with Dr Horton Check check CAT scan of the abdomen and pelvis, stool studies Check fingersticks and initiate insulin sliding scale Prognosis poor, discuss with family
[2019-03-11] MEDS ORDERED: NACL 0.9% 1000 ML 1,000 ML IV ONE (01:03)
[2019-03-11] MEDS: DIPRIVAN 10 MG/ML 1,000 MG/100 ML BOTTLE IV SCH ×3 (01:14→04:16)
[2019-03-11] MEDS: LEVOPHED DRIP 4 MG/NS 250 ML 4 MG/250 ML BAG IV SCH ×6 (01:37→15:30)
[2019-03-11] MEDS ORDERED: ADRENALIN ONE (03:00)
[2019-03-11] MEDS ORDERED: INTROPIN DRIP 800 MG/D5W 250 ML IV ONE (03:00)
--- NOTE | 2019-03-11 03:28 | XRay Report ---
PROCEDURE: XR ABDOMEN 1V AP TECHNIQUE: Abdominal radiograph, single view. HISTORY: og tube placement COMPARISONS: None . FINDINGS: Bowel gas pattern: Nonobstructive . Masses or calcifications: None . Bony structures: No significant abnormality . Other: The tip of the NG tube is in the antral region of the stomach. . IMPRESSION: Tip of the G-tube in the antral region of the stomach.. This document is electronically signed by Guzman Akers MD., March 11 2019 03:27:08 AM ET
[2019-03-11 05:15] LABS: Hematocrit 22.2 % (35.5-45.6); Hemoglobin 7.3 gm/dl (11.8-15.2); Mean Corpuscular HGB Conc 33 % (32-34); Mean Corpuscular Volume 97 fl (84-94); Red Blood Count 2.29 M/mm3 (3.65-5.03); Red Cell Distribution Width 18.2 % (13.2-15.2)
--- NOTE | 2019-03-11 05:19 | Cat Scan Report ---
PROCEDURE: CT ABDOMEN PELVIS WO CON TECHNIQUE: CT imaging is obtained through the abdomen and pelvis without contrast HISTORY: diarrhea COMPARISONS: Radiograph of the same date, CT chest 03/10/2019 FINDINGS: Imaged intrathoracic contents are remarkable for small pleural effusions and bibasilar atelectasis. C oronary artery calcification. Pericardial effusion. Kidneys are normal in size, axis and position. No hydronephrosis or nephrolithiasis. Renal vascular c alcifications. The ureters are normal in course and caliber. Urinary bladder is decompressed with Fol ey catheter. Mild pericholecystic edema is suggested without calcified stones. The liver, pancreas, spleen, and ad renal glands demonstrate an unremarkable noncontrast appearance. Enteric tube terminates in the stomach. Hollow enteric organs are normal in course and caliber. Quest ion mild right colonic wall thickening. Appendix is normal. No pneumoperitoneum or focal fluid collec tion. No lymphadenopathy. Trace free fluid in the pelvis and right paracolic gutter. Aorta is normal in course and caliber with aortoiliac atherosclerosis. Superficial soft tissues are unremarkable. No acute or aggressive appearing skeletal findings. IMPRESSION: Possible mild right colonic wall thickening and trace free fluid in the right paracolic gutter and pe lvis may be infectious, inflammatory or ischemic in etiology. No pneumoperitoneum or focal fluid nena ection to suggest abscess. Mild pericholecystic edema. No calcified gallstones. If there is concern for cholecystitis, consider follow-up ultrasound and/or nuclear medicine hepatobiliary scan. Small pericardial effusion. Coronary and peripheral arterial disease. This document is electronically signed by Cody Schmid MD., March 11 2019 05:17:16 AM ET
[2019-03-11 05:34] LABS: Calcium 7.1 mg/dL (8.4-10.2); Platelet Count 40 K/mm3 (140-440)
[2019-03-11] MEDS: HumaLOG SUB-Q SCH ×3 (06:00→18:48)
[2019-03-11] MEDS ORDERED: ZOSYN/NS 3.375GM/50ML 3.375 GM/50 ML BAG IV SCH (06:00)
[2019-03-11 06:34] LABS: Creatine Kinase MB 4.6 ng/mL (0.0-4.0)
[2019-03-11 06:46] LABS: Anisocytosis 1+; Band Neutrophils # (Manual) 0.1 K/mm3; Basophils % (Manual) 0 % (0.0-1.8); Eosinophils % (Manual) 0 % (0.0-4.3); Macrocytosis Few; Platelet Estimate Consistent w Auto; Total Cells Counted 100
--- NOTE | 2019-03-11 07:09 | Consultation ---
History of Present Illness Consult date: 03/11/19 Requesting physician: PARMINDER CARVER Reason for consult: other (s/p cardiopulmoanry arrest, severe sepsis with shock) History of present illness: 54 y/o male with history of diabetes, hypertension, chronic kidney disease,h/o alcohol use disorder quit drinking 2 years ago, coronary artery disease s/p 2 stents admitted on 03/10/2019 due to a week history of facial/mouth pain /dental pain associated with generalized weakness, cold sensation, cough with dean sputum production and body aches, 48 hour-history of sore throat. Patient is currently intubated and cannot provide a history. History was taken after interviewing daughter at bedside and reviewing medical records. In route, he received albuterol. Patient lives with sister but talks to daughter daily. His daughter spoke to him on the day of presentation Daughter reports he has had worsening leg edema and increasing abdominal girth for last 2 months. Daughter denies sick contacts. In the ED, temp 102.4, HR 106, R 24, BP 165/60, O2 sat 99. WBC 1.2. Hg 7.9. Plat 47. Creat 2.9. Lactate 2.5. LFTs normal. UA 24 wbc with no LE. Influenza rapid negative. Patient was initially awake in the ED. While getting a CXR in the ED needing repositioning he became unresponsive and without a pulse. ACLS initiated for PEA rhythm. Patient was intubated and return of spontaneous circulation. Initial blood pressure was normal but then subsequently dropped despite 2 L of normal saline. Levophed initiated. Then he developed some involuntary jerking movements of upper or lower extremities after OG tube placement. CXR shows cardiac silhouette is enlarged. No evidence of airspace consolidation or pleural effusions. CT chest without contrast shows pericardial effusion measuring up to 1.4 cm in transverse diameter, posterior atelectasis both lungs. Minimal pleural fluid collection. CT head some indistinctness and loss of dean-white matter differentiation and indistinct visualization of the basal ganglia. This is nonspecific finding but may be seen with diffuse hypoxic ischemic brain injury. CT abdomen shows right colon wall thickening and mild pericholecystic edema. Blood culture 03/10/2019 pending. I was consulted for critical care management. Patient seen and examined. Vitals,labs, medications, chart reviewed Medications and Allergies Allergies Allergy/AdvReac Type Severity Reaction Status Date / Time No Known Allergies Allergy Verified 03/10/19 17:37 Home Medications Medication Instructions Recorded Confirmed Last Taken Type Allopurinol [Zyloprim] 300 mg PO DAILY 03/10/19 03/10/19 Unknown History Aspirin [Adult Aspirin] 81 mg PO DAILY 03/10/19 03/10/19 Unknown History Atorvastatin [Lipitor Tab] 80 mg PO DAILY 03/10/19 03/10/19 Unknown History Carvedilol [Coreg] 12.5 mg PO BID 03/10/19 03/10/19 Unknown History Clopidogrel [Plavix] 75 mg PO DAILY 03/10/19 03/10/19 Unknown History Gabapentin [Neurontin] 300 mg PO BID 03/10/19 03/10/19 Unknown History Insulin Lispro Protamin/Lispro 33 unit SQ BID 03/10/19 03/10/19 Unknown History [Humalog Mix 75-25 Vial] Lisinopril [Zestril TAB] 10 mg PO DAILY 03/10/19 03/10/19 Unknown History Pantoprazole [Protonix] 40 mg PO DAILY 03/10/19 03/10/19 Unknown History Sitagliptin Phosphate [Januvia] 50 mg PO DAILY 03/10/19 03/10/19 Unknown History Active Meds: Active Medications Acetaminophen (Tylenol) 650 mg PO Q4H PRN PRN Reason: Pain MILD(1-3)/Fever >100.5/[place] Acetaminophen (Tylenol) 650 mg [place] Q4H PRN PRN Reason: Pain MILD(1-3)/Fever >100.5/[place] Dextrose (D50w (25gm) Syringe) 50 ml IV PRN PRN PRN Reason: Hypoglycemia Hydrophilic Ointment (Vaseline Lip Therapy) 1 applic TP Q2HR PRN PRN Reason: Dry Lips Propofol (Diprivan 10 Mg/Ml) 1,000 mg in 100 mls @ 4.082 mls/hr IV TITR ROXANNE; Protocol Last Admin: 03/11/19 04:16 Dose: 20 mcg/kg/min, 16.329 mls/hr Documented by: Norepinephrine (Levophed Drip 4 Mg/Ns 250 Ml) 4 mg in 250 mls @ 7.5 mls/hr IV TITR ROXANNE; Protocol Last Titration: 03/11/19 06:16 Dose: 0 mcg/min, 0 mls/hr Documented by: Sodium Chloride (Nacl 0.9% 1000 Ml) 1,000 mls @ 150 mls/hr IV DIRECT ROXANNE Piperacillin Sod/Tazobactam Sod (Zosyn/Ns 3.375gm/50ml) 3.375 gm in 50 mls @ 100 mls/hr IV Q8HR ROXANNE Last Admin: 03/11/19 06:19 Dose: 100 mls/hr Documented by: Insulin Human Lispro (Humalog) 0 unit SUB-Q Q6HR ROXANNE; Protocol Multi-Ingred Cream/Lotion/Oil/Oint (Artificial Tears Ophth Oint) 1 applic OU Q4HR PRN PRN Reason: Dry Eye(s) Ondansetron HCl (Zofran) 4 mg IV Q8H PRN PRN Reason: Nausea And Vomiting Sodium Chloride (Sodium Chloride Flush Syringe 10 Ml) 10 ml IV BID ROXANNE Sodium Chloride (Sodium Chloride Flush Syringe 10 Ml) 10 ml IV PRN PRN PRN Reason: LINE FLUSH Review of Systems ROS unobtainable: due to endotracheal tube, due to mental status Physical Examination Vital signs: Vital Signs Pulse Ox 93 03/10/19 17:28 General appearance: morbidly obese, facial edema, sedated, grimaces to pain. Atraumatic, normocephalic, orally intubated ETT to MVS, 7.5cm at 23cm at the lip. No patient-ventilator dys-synchrony Eyes: anicteric sclerae, moist conjunctivae; HENT: Atraumatic; large neck, no neck stiffness Neck: Trachea midline; bilateral swollen neck , no adenopathy, LIJ CVC Lungs: Diminshed AE bialterally, occasional rhonci CV: RRR, S1,S2, no murmurs, gallops or rubs Abdomen: Soft, non-tender; obese Extremities: no edema, cyanosis, DP palpable, Skin: no rash, ulcers or subcutaneous nodules Psych: sedated. Neuro: sedated Results - Laboratory Findings CBC and BMP: 03/12/19 05:06 03/12/19 07:19 ABG POC ABG pH 7.403 (7.35-7.45) 03/11/19 06:06 POC ABG pCO2 32.8 (35-45) L 03/11/19 06:06 POC ABG pO2 99 (80-105) 03/11/19 06:06 POC ABG HCO3 20.5 (22-26 mml/L) 03/11/19 06:06 POC ABG Total CO2 21 (23-27mmol/L) 03/11/19 06:06 POC ABG O2 Sat 98 03/11/19 06:06 PT/INR, D-dimer PT 14.4 Sec. (12.2-14.9) 03/10/19 17:57 INR 1.15 (0.87-1.13) H 03/10/19 17:57 Abnormal lab findings: Abnormal Labs 03/10/19 03/10/19 03/10/19 17:57 17:57 17:57 WBC 1.2 L* RBC 2.46 L Hgb 7.9 L Hct 23.2 L MCV RDW 18.2 H Plt Count 47 L Meigs # 0.9 H Seg Neuts % (Manual) 6.0 L Lymphocytes % (Manual) 74.0 H Monocytes % (Manual) 20.0 H Nucleated RBC % Seg Neutrophils # 0.1 L Seg Neutrophils # Man 0.1 L Lymphocytes # (Manual) 0.9 L Monocytes # (Manual) INR POC ABG pH POC ABG pCO2 POC ABG pO2 Potassium Carbon Dioxide BUN 46 H Creatinine 2.9 H Glucose 200 H POC Glucose Lactic Acid 2.50 H* Calcium 7.6 L Total Creatine Kinase CK-MB (CK-2) Troponin T Albumin 3.2 L Urine WBC (Auto) 03/10/19 03/10/19 03/10/19 17:57 18:01 19:16 WBC RBC Hgb Hct MCV RDW Plt Count Meigs # Seg Neuts % (Manual) Lymphocytes % (Manual) Monocytes % (Manual) Nucleated RBC % Seg Neutrophils # Seg Neutrophils # Man Lymphocytes # (Manual) Monocytes # (Manual) INR 1.15 H POC ABG pH POC ABG pCO2 POC ABG pO2 Potassium Carbon Dioxide BUN Creatinine Glucose POC Glucose 234 H Lactic Acid 2.80 H* Calcium Total Creatine Kinase CK-MB (CK-2) Troponin T Albumin Urine WBC (Auto) 03/10/19 03/10/19 03/10/19 20:56 21:32 23:06 WBC RBC Hgb Hct MCV RDW Plt Count Meigs # Seg Neuts % (Manual) Lymphocytes % (Manual) Monocytes % (Manual) Nucleated RBC % Seg Neutrophils # Seg Neutrophils # Man Lymphocytes # (Manual) Monocytes # (Manual) INR POC ABG pH 7.274 L POC ABG pCO2 46.6 H POC ABG pO2 315 H Potassium Carbon Dioxide BUN Creatinine Glucose POC Glucose Lactic Acid Calcium Total Creatine Kinase CK-MB (CK-2) Troponin T Albumin Urine WBC (Auto) 24.0 H 03/10/19 03/11/19 03/11/19 23:29 00:50 05:01 WBC RBC 2.29 L Hgb 7.3 L Hct 22.2 L MCV 97 H RDW 18.2 H Plt Count 40 L Meigs # Seg Neuts % (Manual) 8.0 L Lymphocytes % (Manual) 67.0 H Monocytes % (Manual) 24.0 H Nucleated RBC % 5.0 H Seg Neutrophils # Seg Neutrophils # Man 0.4 L Lymphocytes # (Manual) Monocytes # (Manual) 1.2 H INR POC ABG pH POC ABG pCO2 POC ABG pO2 Potassium Carbon Dioxide BUN Creatinine Glucose POC Glucose 237 H Lactic Acid Calcium Total Creatine Kinase 513 H CK-MB (CK-2) Troponin T 0.075 H Albumin Urine WBC (Auto) 03/11/19 03/11/19 03/11/19 05:01 06:06 06:07 WBC RBC Hgb Hct MCV RDW Plt Count Meigs # Seg Neuts % (Manual) Lymphocytes % (Manual) Monocytes % (Manual) Nucleated RBC % Seg Neutrophils # Seg Neutrophils # Man Lymphocytes # (Manual) Monocytes # (Manual) INR POC ABG pH POC ABG pCO2 32.8 L POC ABG pO2 Potassium 5.3 H Carbon Dioxide 19 L BUN 49 H Creatinine 3.7 H Glucose 203 H POC Glucose Lactic Acid Calcium 7.1 L Total Creatine Kinase 1156 H CK-MB (CK-2) 4.6 H Troponin T 0.077 H Albumin Urine WBC (Auto) 03/11/19 06:35 WBC RBC Hgb Hct MCV RDW Plt Count Meigs # Seg Neuts % (Manual) Lymphocytes % (Manual) Monocytes % (Manual) Nucleated RBC % Seg Neutrophils # Seg Neutrophils # Man Lymphocytes # (Manual) Monocytes # (Manual) INR POC ABG pH POC ABG pCO2 POC ABG pO2 Potassium Carbon Dioxide BUN Creatinine Glucose POC Glucose 209 H Lactic Acid Calcium Total Creatine Kinase CK-MB (CK-2) Troponin T Albumin Urine WBC (Auto) - Diagnostic Findings Chest x-ray: image reviewed (Bilateral lower lobe infiltrates, otherwise unremarkable, ETT, LIJ CVC in place) Assessment and Plan -s/p Cardiopulmonary arrest with ROSC -Acute on chronic hypoxemic respiratory failure on MVS -Severe sepsis with septic shock unclear etiology -Acute on chronic renal failure (multifactorial) -Acute metabolic-toxic encephalopathy -Morbid obesity -h/o CAD s/p 2 stents -Pancytopenia- probably secondary to sepsis and underlying chronic liver disease -Type 2 DM -h/o Alcohol abuse disorder -Continue with volume resuscitation -wean vasopressor support for MAP>65 -Serial cardiac enzymes/troponins, get BNP -2 D echocardiogram, post cardiac arrest -Blood cultures, urine cultures with urinalysis, tracheal aspirate for culture Follow up cultures -Adjust minute ventilation for better gas exchange -Lung protective strategies -Serial CXR and ABG -VAP bundle addressed -Supplemental oxygen to keep O2 sats 90-92% -Bronchodilators -Accuchecks with glycemic control. Target blood glucose <180mg/dL -Address nutrition -Nutrition consult for tube feeding -Aspiration precautions -Agitation management -Titrate sedation to RAAS 0 to -1 -Prevention of delirium, maintenance of sleep-wake cycle -Empiric antibiotic therapy per ID( per discussions with ID, she will want to r/o meningitis given the history of a facial/dental pain) -De-escalate therapy based on microbiology/HAYDER/Cultures -Avoid nephrotoxic agents, adjust all antibiotics and medications for CrCL and GFR -VTE ( SCDs) and Stress ulcer prophylaxis( therapeutic PPI for now) -Womack catheter in this critically ill patient with acute on chronic renal failure, requiring strict intake and output monitoring. Will assess daily, the need for ongoing Womack catheter -Medical management of hyperkalemia Consults- Renal, ID, Cardiology CONDITION: CRITICAL PROGNOSIS: GUARDED CODE STATUS: FULL CODE Discussed extensively with the patient's daughter who was at the bedside. All her questions were answered. Discussed with the hospitalist, ID service and with RT/RN Did notify the daughter that he may need HD, depending on how his renal function and hemodynamics respond to current therapies The daughter did state that if care becomes futile, based on what she knows about her father, she will re address goals of care and code status. She states that her last telephone conversation with him prior to his coming to the ED, he stated that he loved her and to makes sure she told the grandchildren that he loved them The high probability of a clinically significant, sudden or life-threatening deterioration of the [respiratory, cardiovascular, renal, neurology] system(s) required my full and direct attention, intervention and personal management. The aggregate critical care time was [75 ] minutes without overlap. Time includes spent on; [x] Data Review and interpretation [x] Patient assessment and monitoring of vital signs [x] Documentation [x] Medication orders and management
[2019-03-11] MEDS ORDERED: DIPRIVAN 10 MG/ML 1,000 MG/100 ML BOTTLE IV ONE ×2 (07:12→11:57)
[2019-03-11] MEDS ORDERED: fentaNYL DRIP Premix 2,000 MCG/100 ML BAG IV ONE ×2 (07:48→13:46)
--- NOTE | 2019-03-11 10:48 | Consultation ---
History of Present Illness - Reason for Consult Consult date: 03/11/19 sepsis Requesting physician: DERICK ESPINO - History of Present Illness 54 y/o male with history of diabetes, hypertension, chronic kidney disease, coronary artery disease admitted on 03/10/2019 due to a week history of facial/mouth pain (?dental pain) associated with generalized weakness, cold sens ation, cough with dean sputum production and body aches, 48 hour-history of sore throat. Patient is currently intubated and cannot provide a history. History was taken after interviewing daughter at bedside and reviewing ED records. In route, he received albuterol. Patient lives with sister but talks to daughter daily. Daughter reports he has had worsening leg edema and increasing abdominal girth for last 2 months. Daughter denies sick contacts. In the ED, temp 102.4, HR 106, R 24, BP 165/60, O2 sat 99. WBC 1.2. Hg 7.9. Plat 47. Creat 2.9. Lactate 2.5. LFTs normal. UA 24 wbc with no LE. Influenza rapid negative. Patient was initially awake in the ED. While getting a CXR in the ED needing repositioning he became unresponsive and without a pulse. ACLS initiated for PEA rhythm. Patient was intubated and return of spontaneous circulation. Initial blood pressure was normal but then subsequently dropped despite 2 L of normal saline. Levophed initiated. Then he developed some involuntary jerking movements of upper or lower extremities after OG tube placement. CXR shows cardiac silhouette is enlarged. No evidence of airspace consolidation or pleural effusions. CT chest without contrast shows pericardial effusion measuring up to 1.4 cm in transverse diameter, posterior atelectasis both lungs. Minimal pleural fluid collection. CT head some indistinctness and loss of dean-white matter differentiation and indistinct visualization of the basal ganglia. This is nonspecific finding but may be seen with diffuse hypoxic ischemic brain injury. CT abdomen shows right colon wall thickening and mild pericholecystic edema. Blood culture 03/10/2019 pending. Review of Systems: unable to obtain due to intubation post arrest Medications and Allergies Allergies Allergy/AdvReac Type Severity Reaction Status Date / Time No Known Allergies Allergy Verified 03/10/19 17:37 Home Medications Medication Instructions Recorded Confirmed Last Taken Type Allopurinol [Zyloprim] 300 mg PO DAILY 03/10/19 03/10/19 Unknown History Aspirin [Adult Aspirin] 81 mg PO DAILY 03/10/19 03/10/19 Unknown History Atorvastatin [Lipitor Tab] 80 mg PO DAILY 03/10/19 03/10/19 Unknown History Carvedilol [Coreg] 12.5 mg PO BID 03/10/19 03/10/19 Unknown History Clopidogrel [Plavix] 75 mg PO DAILY 03/10/19 03/10/19 Unknown History Gabapentin [Neurontin] 300 mg PO BID 03/10/19 03/10/19 Unknown History Insulin Lispro Protamin/Lispro 33 unit SQ BID 03/10/19 03/10/19 Unknown History [Humalog Mix 75-25 Vial] Lisinopril [Zestril TAB] 10 mg PO DAILY 03/10/19 03/10/19 Unknown History Pantoprazole [Protonix] 40 mg PO DAILY 03/10/19 03/10/19 Unknown History Sitagliptin Phosphate [Januvia] 50 mg PO DAILY 03/10/19 03/10/19 Unknown History Active Meds: Active Medications Acetaminophen (Tylenol) 650 mg PO Q4H PRN PRN Reason: Pain MILD(1-3)/Fever >100.5/[place] Acetaminophen (Tylenol) 650 mg [place] Q4H PRN PRN Reason: Pain MILD(1-3)/Fever >100.5/[place] Dextrose (D50w (25gm) Syringe) 50 ml IV PRN PRN PRN Reason: Hypoglycemia Fentanyl (Sublimaze) 50 mcg IV Q10MIN PRN PRN Reason: ANALGESIA Hydrophilic Ointment (Vaseline Lip Therapy) 1 applic TP Q2HR PRN PRN Reason: Dry Lips Propofol (Diprivan 10 Mg/Ml) 1,000 mg in 100 mls @ 4.082 mls/hr IV TITR ROXANNE; Protocol Last Admin: 03/11/19 04:16 Dose: 20 mcg/kg/min, 16.329 mls/hr Documented by: Norepinephrine (Levophed Drip 4 Mg/Ns 250 Ml) 4 mg in 250 mls @ 7.5 mls/hr IV TITR ROXANNE; Protocol Last Titration: 03/11/19 06:16 Dose: 0 mcg/min, 0 mls/hr Documented by: Sodium Chloride (Nacl 0.9% 1000 Ml) 1,000 mls @ 150 mls/hr IV DIRECT ROXANNE Piperacillin Sod/Tazobactam Sod (Zosyn/Ns 3.375gm/50ml) 3.375 gm in 50 mls @ 100 mls/hr IV Q8HR ROXANNE Last Admin: 03/11/19 06:19 Dose: 100 mls/hr Documented by: Fentanyl Citrate (Fentanyl Drip Premix) 2,000 mcg in 100 mls @ 6.804 mls/hr IV TITR ROXANNE; Protocol Insulin Human Lispro (Humalog) 0 unit SUB-Q Q6HR ROXANNE; Protocol Multi-Ingred Cream/Lotion/Oil/Oint (Artificial Tears Ophth Oint) 1 applic OU Q4HR PRN PRN Reason: Dry Eye(s) Ondansetron HCl (Zofran) 4 mg IV Q8H PRN PRN Reason: Nausea And Vomiting Sodium Chloride (Sodium Chloride Flush Syringe 10 Ml) 10 ml IV BID ROXANNE Sodium Chloride (Sodium Chloride Flush Syringe 10 Ml) 10 ml IV PRN PRN PRN Reason: LINE FLUSH Physical Examination - Physical Exam Narrative exam: General appearance: on sedative intubated in NAD Eyes: anicteric sclerae, moist conjunctivae; no lid-lag; PERRLA HENT: Atraumatic; oropharynx ETT Neck: Trachea midline; ryan swollen neck vs obese body habitus Lungs: CTA CV: RRR no murmur Abdomen: Soft, non-tender; obese Extremities: no edema, cyanosis Skin: no rash, ulcers or subcutaneous nodules Psych: sedated. Neuro: sedated - Constitutional Vitals: Vital Signs Temp Pulse Resp BP Pulse Ox 102.4 F H 74 30 H 127/52 96 03/10/19 17:30 03/11/19 08:20 03/11/19 06:15 03/11/19 08:20 03/11/19 08:20 Temperature -Last 24 Hours Temperature 102.4 F Results - Labs CBC & Chem 7: 03/11/19 05:01 03/11/19 05:01 Labs: Abnormal lab results 03/10/19 03/10/19 03/10/19 Range/Units 17:57 17:57 17:57 WBC 1.2 L* (4.5-11.0) K/mm3 RBC 2.46 L (3.65-5.03) M/mm3 Hgb 7.9 L (11.8-15.2) gm/dl Hct 23.2 L (35.5-45.6) % MCV (84-94) fl RDW 18.2 H (13.2-15.2) % Plt Count 47 L (140-440) K/mm3 Ceiba # 0.9 H (0.0-0.8) K/mm3 Seg Neuts % (Manual) 6.0 L (40.0-70.0) % Lymphocytes % (Manual) 74.0 H (13.4-35.0) % Monocytes % (Manual) 20.0 H (0.0-7.3) % Nucleated RBC % (0.0-0.9) % Seg Neutrophils # 0.1 L (1.8-7.7) K/mm3 Seg Neutrophils # Man 0.1 L (1.8-7.7) K/mm3 Lymphocytes # (Manual) 0.9 L (1.2-5.4) K/mm3 Monocytes # (Manual) (0.0-0.8) K/mm3 INR (0.87-1.13) POC ABG pH (7.35-7.45) POC ABG pCO2 (35-45) POC ABG pO2 (80-105) Potassium (3.6-5.0) mmol/L Carbon Dioxide (22-30) mmol/L BUN 46 H (9-20) mg/dL Creatinine 2.9 H (0.8-1.5) mg/dL Glucose 200 H (75-100) mg/dL POC Glucose (70-105) Lactic Acid 2.50 H* (0.7-2.0) mmol/L Calcium 7.6 L (8.4-10.2) mg/dL Total Creatine Kinase (55-170) units/L CK-MB (CK-2) (0.0-4.0) ng/mL Troponin T (0.00-0.029) ng/mL Albumin 3.2 L (3.9-5) g/dL Urine WBC (Auto) (0.0-6.0) /HPF 03/10/19 03/10/19 03/10/19 Range/Units 17:57 18:01 19:16 WBC (4.5-11.0) K/mm3 RBC (3.65-5.03) M/mm3 Hgb (11.8-15.2) gm/dl Hct (35.5-45.6) % MCV (84-94) fl RDW (13.2-15.2) % Plt Count (140-440) K/mm3 [place] # (0.0-0.8) K/mm3 Seg Neuts % (Manual) (40.0-70.0) % Lymphocytes % (Manual) (13.4-35.0) % Monocytes % (Manual) (0.0-7.3) % Nucleated RBC % (0.0-0.9) % Seg Neutrophils # (1.8-7.7) K/mm3 Seg Neutrophils # Man (1.8-7.7) K/mm3 Lymphocytes # (Manual) (1.2-5.4) K/mm3 Monocytes # (Manual) (0.0-0.8) K/mm3 INR 1.15 H (0.87-1.13) POC ABG pH (7.35-7.45) POC ABG pCO2 (35-45) POC ABG pO2 (80-105) Potassium (3.6-5.0) mmol/L Carbon Dioxide (22-30) mmol/L BUN (9-20) mg/dL Creatinine (0.8-1.5) mg/dL Glucose (75-100) mg/dL POC Glucose 234 H (70-105) Lactic Acid 2.80 H* (0.7-2.0) mmol/L Calcium (8.4-10.2) mg/dL Total Creatine Kinase (55-170) units/L CK-MB (CK-2) (0.0-4.0) ng/mL Troponin T (0.00-0.029) ng/mL Albumin (3.9-5) g/dL Urine WBC (Auto) (0.0-6.0) /HPF 03/10/19 03/10/19 03/10/19 Range/Units 20:56 21:32 23:06 WBC (4.5-11.0) K/mm3 RBC (3.65-5.03) M/mm3 Hgb (11.8-15.2) gm/dl Hct (35.5-45.6) % MCV (84-94) fl RDW (13.2-15.2) % Plt Count (140-440) K/mm3 [place] # (0.0-0.8) K/mm3 Seg Neuts % (Manual) (40.0-70.0) % Lymphocytes % (Manual) (13.4-35.0) % Monocytes % (Manual) (0.0-7.3) % Nucleated RBC % (0.0-0.9) % Seg Neutrophils # (1.8-7.7) K/mm3 Seg Neutrophils # Man (1.8-7.7) K/mm3 Lymphocytes # (Manual) (1.2-5.4) K/mm3 Monocytes # (Manual) (0.0-0.8) K/mm3 INR (0.87-1.13) POC ABG pH 7.274 L (7.35-7.45) POC ABG pCO2 46.6 H (35-45) POC ABG pO2 315 H (80-105) Potassium (3.6-5.0) mmol/L Carbon Dioxide (22-30) mmol/L BUN (9-20) mg/dL Creatinine (0.8-1.5) mg/dL Glucose (75-100) mg/dL POC Glucose (70-105) Lactic Acid (0.7-2.0) mmol/L Calcium (8.4-10.2) mg/dL Total Creatine Kinase (55-170) units/L CK-MB (CK-2) (0.0-4.0) ng/mL Troponin T (0.00-0.029) ng/mL Albumin (3.9-5) g/dL Urine WBC (Auto) 24.0 H (0.0-6.0) /HPF 03/10/19 03/11/19 03/11/19 Range/Units 23:29 00:50 05:01 WBC (4.5-11.0) K/mm3 RBC 2.29 L (3.65-5.03) M/mm3 Hgb 7.3 L (11.8-15.2) gm/dl Hct 22.2 L (35.5-45.6) % MCV 97 H (84-94) fl RDW 18.2 H (13.2-15.2) % Plt Count 40 L (140-440) K/mm3 [place] # (0.0-0.8) K/mm3 Seg Neuts % (Manual) 8.0 L (40.0-70.0) % Lymphocytes % (Manual) 67.0 H (13.4-35.0) % Monocytes % (Manual) 24.0 H (0.0-7.3) % Nucleated RBC % 5.0 H (0.0-0.9) % Seg Neutrophils # (1.8-7.7) K/mm3 Seg Neutrophils # Man 0.4 L (1.8-7.7) K/mm3 Lymphocytes # (Manual) (1.2-5.4) K/mm3 Monocytes # (Manual) 1.2 H (0.0-0.8) K/mm3 INR (0.87-1.13) POC ABG pH (7.35-7.45) POC ABG pCO2 (35-45) POC ABG pO2 (80-105) Potassium (3.6-5.0) mmol/L Carbon Dioxide (22-30) mmol/L BUN (9-20) mg/dL Creatinine (0.8-1.5) mg/dL Glucose (75-100) mg/dL POC Glucose 237 H (70-105) Lactic Acid (0.7-2.0) mmol/L Calcium (8.4-10.2) mg/dL Total Creatine Kinase 513 H (55-170) units/L CK-MB (CK-2) (0.0-4.0) ng/mL Troponin T 0.075 H (0.00-0.029) ng/mL Albumin (3.9-5) g/dL Urine WBC (Auto) (0.0-6.0) /HPF 03/11/19 03/11/19 03/11/19 Range/Units 05:01 06:06 06:07 WBC (4.5-11.0) K/mm3 RBC (3.65-5.03) M/mm3 Hgb (11.8-15.2) gm/dl Hct (35.5-45.6) % MCV (84-94) fl RDW (13.2-15.2) % Plt Count (140-440) K/mm3 [place] # (0.0-0.8) K/mm3 Seg Neuts % (Manual) (40.0-70.0) % Lymphocytes % (Manual) (13.4-35.0) % Monocytes % (Manual) (0.0-7.3) % Nucleated RBC % (0.0-0.9) % Seg Neutrophils # (1.8-7.7) K/mm3 Seg Neutrophils # Man (1.8-7.7) K/mm3 Lymphocytes # (Manual) (1.2-5.4) K/mm3 Monocytes # (Manual) (0.0-0.8) K/mm3 INR (0.87-1.13) POC ABG pH (7.35-7.45) POC ABG pCO2 32.8 L (35-45) POC ABG pO2 (80-105) Potassium 5.3 H (3.6-5.0) mmol/L Carbon Dioxide 19 L (22-30) mmol/L BUN 49 H (9-20) mg/dL Creatinine 3.7 H (0.8-1.5) mg/dL Glucose 203 H (75-100) mg/dL POC Glucose (70-105) Lactic Acid (0.7-2.0) mmol/L Calcium 7.1 L (8.4-10.2) mg/dL Total Creatine Kinase 1156 H (55-170) units/L CK-MB (CK-2) 4.6 H (0.0-4.0) ng/mL Troponin T 0.077 H (0.00-0.029) ng/mL Albumin (3.9-5) g/dL Urine WBC (Auto) (0.0-6.0) /HPF 03/11/19 Range/Units 06:35 WBC (4.5-11.0) K/mm3 RBC (3.65-5.03) M/mm3 Hgb (11.8-15.2) gm/dl Hct (35.5-45.6) % MCV (84-94) fl RDW (13.2-15.2) % Plt Count (140-440) K/mm3 [place] # (0.0-0.8) K/mm3 Seg Neuts % (Manual) (40.0-70.0) % Lymphocytes % (Manual) (13.4-35.0) % Monocytes % (Manual) (0.0-7.3) % Nucleated RBC % (0.0-0.9) % Seg Neutrophils # (1.8-7.7) K/mm3 Seg Neutrophils # Man (1.8-7.7) K/mm3 Lymphocytes # (Manual) (1.2-5.4) K/mm3 Monocytes # (Manual) (0.0-0.8) K/mm3 INR (0.87-1.13) POC ABG pH (7.35-7.45) POC ABG pCO2 (35-45) POC ABG pO2 (80-105) Potassium (3.6-5.0) mmol/L Carbon Dioxide (22-30) mmol/L BUN (9-20) mg/dL Creatinine (0.8-1.5) mg/dL Glucose (75-100) mg/dL POC Glucose 209 H (70-105) Lactic Acid (0.7-2.0) mmol/L Calcium (8.4-10.2) mg/dL Total Creatine Kinase (55-170) units/L CK-MB (CK-2) (0.0-4.0) ng/mL Troponin T (0.00-0.029) ng/mL Albumin (3.9-5) g/dL Urine WBC (Auto) (0.0-6.0) /HPF Assessment and Plan Cultures: Blood culture 03/10/2019 pending. Assessment: 54 y/o male with history of diabetes, hypertension, chronic kidney disease, coronary artery disease admitted on 03/10/2019 due to a week history of facial/mouth pain (?dental pain) associated with generalized weakness, cold sensation, cough with dean sputum production and body aches, 48 hour-history of sore throat, in the ED patient went into PEA arrest s/p CPR: 1) Severe Sepsis with PEA arrest and transient shock post arrest: Present on admission, manifested by fever, neutropenia, tachycardia, tachypnea, increased lactate. Currently off pressors. Etiology unclear. UA with 24 wbc with no LE ? mild UTI (does not explain severity of sepsis). Influenza rapid negative. CXR and CT chest no consolidations. DDx dental abscess, bacteremia, meningitis, early aspiration pneumonia, colitis, cholecystitis. 2) Acute encephalopathy: post arrest +/- due to infection ? meningitis. CT head some indistinctness and loss of dean-white matter differentiation and indistinct visualization of the basal ganglia. This is nonspecific finding but may be seen with diffuse hypoxic ischemic brain injury. 3) Acute respiratory failure: now intubated. CT chest without contrast shows pericardial effusion measuring up to 1.4 cm in transverse diameter, posterior atelectasis both lungs. Minimal pleural fluid collection. 4) Thrombocytopenia: from sepsis 5) ISMAEL on CKD: renally adjusted meds. Recommendations: - follow-up blood cultures, urine culture - obtain lumbar puncture when stable, send CSF for Gram, culture, cell count, diff, VRDL, crypto - droplet precautions - obtain CT face / neck soft tissue eval for abscess - start ceftriaxone 2 gm IV q 12 hour - continue vancomycin renally adjusted - stop zosyn - add flagyl for now for colitis - if diarrhea collect stool for C diff Will follow. Marietta Ahuja MD Infectious Diseases [employer] [facility] ([facility] M [phone] O [phone]
[2019-03-11] MEDS ORDERED: VANCOMYCIN PHARMACY TO DOSE IV SCH (12:00)
[2019-03-11] MEDS ORDERED: HumaLOG SUB-Q ONE (13:08)
--- NOTE | 2019-03-11 13:30 | Consultation ---
History of Present Illness Consult date: 03/11/19 Requesting physician: ASHIA AJCK Consult reason: cardiac arrest History of present illness: The pt is a 54 y/o male with history of CAD s/p PCI x 2 at [facility] in 03/2016, diabetes, hypertension, chronic kidney disease, obesity, former tobacco use. He was recently seen in consult in our office by Dr. Murrieta. He is intubated with no family at bedside on evaluation and thus HPI obtained per the chart and per primary RN. Pt presented on 03/10/2019 due to a week history of nausea, vomiting, facial/mouth pain (?dental pain) associated with generalized weakness, cold sensation, cough with dean sputum production and body aches, 48 hour-history of sore throat. In the ED, temp 102.4, HR 106, R 24, BP 165/60, O2 sat 99. WBC 1.2. Hg 7.9. Plat 47. Creat 2.9. Lactate 2.5. LFTs normal. Patient was initially awake in the ED. While being repositioned for a CXR in the ED he became unresponsive and lost a pulse. ACLS initiated for PEA rhythm. Patient was intubated and return of spontaneous circulation was achieved after epi x 2 per the code sheet. Initial blood pressure was normal but then subsequently dropped and Levophed initiated. Then he developed some involuntary jerking movements of upper or lower extremities after OG tube placement. Echo done 03/05/2019 showed EF 60-65%, mild LVH, LA mildly dilated, small per icardial effusion. Past History Past Medical History: other (as per HPI) Medications and Allergies Allergies Allergy/AdvReac Type Severity Reaction Status Date / Time No Known Allergies Allergy Verified 03/10/19 17:37 Home Medications Medication Instructions Recorded Confirmed Last Taken Type Allopurinol [Zyloprim] 300 mg PO DAILY 03/10/19 03/10/19 Unknown History Aspirin [Adult Aspirin] 81 mg PO DAILY 03/10/19 03/10/19 Unknown History Atorvastatin [Lipitor Tab] 80 mg PO DAILY 03/10/19 03/10/19 Unknown History Carvedilol [Coreg] 12.5 mg PO BID 03/10/19 03/10/19 Unknown History Clopidogrel [Plavix] 75 mg PO DAILY 03/10/19 03/10/19 Unknown History Gabapentin [Neurontin] 300 mg PO BID 03/10/19 03/10/19 Unknown History Insulin Lispro Protamin/Lispro 33 unit SQ BID 03/10/19 03/10/19 Unknown History [Humalog Mix 75-25 Vial] Lisinopril [Zestril TAB] 10 mg PO DAILY 03/10/19 03/10/19 Unknown History Pantoprazole [Protonix] 40 mg PO DAILY 03/10/19 03/10/19 Unknown History Sitagliptin Phosphate [Januvia] 50 mg PO DAILY 03/10/19 03/10/19 Unknown History Active Meds: Active Medications Acetaminophen (Tylenol) 650 mg PO Q4H PRN PRN Reason: Pain MILD(1-3)/Fever >100.5/[place] Acetaminophen (Tylenol) 650 mg [place] Q4H PRN PRN Reason: Pain MILD(1-3)/Fever >100.5/[place] Dextrose (D50w (25gm) Syringe) 50 ml IV PRN PRN PRN Reason: Hypoglycemia Fentanyl (Sublimaze) 50 mcg IV Q10MIN PRN PRN Reason: ANALGESIA Hydrophilic Ointment (Vaseline Lip Therapy) 1 applic TP Q2HR PRN PRN Reason: Dry Lips Propofol (Diprivan 10 Mg/Ml) 1,000 mg in 100 mls @ 4.082 mls/hr IV TITR ROXANNE; Protocol Last Admin: 03/11/19 04:16 Dose: 20 mcg/kg/min, 16.329 mls/hr Documented by: Norepinephrine (Levophed Drip 4 Mg/Ns 250 Ml) 4 mg in 250 mls @ 7.5 mls/hr IV TITR ROXANNE; Protocol Last Titration: 03/11/19 12:43 Dose: 8 mcg/min, 30 mls/hr Documented by: Sodium Chloride (Nacl 0.9% 1000 Ml) 1,000 mls @ 150 mls/hr IV DIRECT ROXANNE Fentanyl Citrate (Fentanyl Drip Premix) 2,000 mcg in 100 mls @ 6.804 mls/hr IV TITR ROXANNE; Protocol Ceftriaxone Sodium (Rocephin/Ns 2 Gm/100 Ml) 2 gm in 100 mls @ 200 mls/hr IV Q12HR ROXANNE; Protocol Metronidazole (Flagyl 500 Mg/100 Ml) 500 mg in 100 mls @ 100 mls/hr IV Q8HR ROXANNE; Protocol Insulin Human Lispro (Humalog) 0 unit SUB-Q Q6HR ROXANNE; Protocol Last Admin: 03/11/19 13:07 Dose: 1 unit Documented by: Multi-Ingred Cream/Lotion/Oil/Oint (Artificial Tears Ophth Oint) 1 applic OU Q4HR PRN PRN Reason: Dry Eye(s) Ondansetron HCl (Zofran) 4 mg IV Q8H PRN PRN Reason: Nausea And Vomiting Sodium Chloride (Sodium Chloride Flush Syringe 10 Ml) 10 ml IV BID ROXANNE Sodium Chloride (Sodium Chloride Flush Syringe 10 Ml) 10 ml IV PRN PRN PRN Reason: LINE FLUSH Review of Systems ROS unobtainable: due to endotracheal tube, due to mental status Physical Examination Vital Signs Pulse Ox 93 03/10/19 17:28 General appearance: other (intubated, nonresponsive ) Cardiac: Positive: Reg Rate and Rhythm, S1/S2 Lungs: Positive: Oxygen, Ventilated Respirations Neuro: Positive: Other (intubated, nonresponsive ) Skin: Negative: Rash Musculoskeletal: No Pain Extremities: Present: edema (trace BLE) Results 03/11/19 05:01 03/11/19 05:01 Cardiac Enzymes 03/10/19 03/11/19 03/11/19 Range/Units 17:57 00:50 06:07 AST 23 (5-40) units/L CK-MB (CK-2) 3.0 4.6 H (0.0-4.0) ng/mL Coagulation 03/10/19 Range/Units 17:57 PT 14.4 (12.2-14.9) Sec. INR 1.15 H (0.87-1.13) APTT 28.8 (24.2-36.6) Sec. CBC 03/10/19 03/11/19 Range/Units 17:57 05:01 WBC 1.2 L* 5.0 (4.5-11.0) K/mm3 RBC 2.46 L 2.29 L (3.65-5.03) M/mm3 Hgb 7.9 L 7.3 L (11.8-15.2) gm/dl Hct 23.2 L 22.2 L (35.5-45.6) % Plt Count 47 L 40 L (140-440) K/mm3 [place] # 0.9 H (0.0-0.8) K/mm3 Eos # 0.0 (0.0-0.4) K/mm3 Baso # 0.0 (0.0-0.1) K/mm3 Comprehensive Metabolic Panel 03/10/19 03/11/19 Range/Units 17:57 05:01 Sodium 140 137 (137-145) mmol/L Potassium 4.5 5.3 H (3.6-5.0) mmol/L Chloride 101.1 102.7 (98-107) mmol/L Carbon Dioxide 23 19 L (22-30) mmol/L BUN 46 H 49 H (9-20) mg/dL Creatinine 2.9 H 3.7 H (0.8-1.5) mg/dL Glucose 200 H 203 H (75-100) mg/dL Calcium 7.6 L 7.1 L (8.4-10.2) mg/dL AST 23 (5-40) units/L ALT 21 (7-56) units/L Alkaline Phosphatase 128 (35-129) units/L Total Protein 6.5 (6.3-8.2) g/dL Albumin 3.2 L (3.9-5) g/dL - Imaging and Cardiology Echo: report reviewed ( 03/05/2019 showed EF 60-65%, mild LVH, LA mildly dilated, small pericardial effusion. ) EKG: report reviewed, image reviewed EKG interpretations - Telemetry EKG Rhythm: Sinus Rhythm - EKG Sinus rhythms and dysrhythmias: sinus rhythm AV and intraventricular conduction: left anterior fascicular Assessment and Plan Pt seen s/p PEA cardiac arrest yesterday evening. He is intubated, hypotensive, unresponsive. troponins minimally elevated, ECG with SR and no acute ischemic ch anges. He underwent echo on 03/05/2019 in our office which showed EF 60-65%, mild LVH, LA mildly dilated, small pericardial effusion. Chest CT w/o contrast showed small pericardial effusion. Will f/u echo to re-evaluate LV function and pericardial effusion. Head CT with some ? changes suspicious for hypoxic ischemic brain injury. Cont supportive management. The patient has been seen in conjunction with Dr. Medina who agrees with the assessment and plan of care. - Patient Problems (1) Cardiopulmonary arrest with successful resuscitation Current Visit: Yes Status: Acute (2) Acute respiratory failure Current Visit: Yes Status: Acute (3) Sepsis Current Visit: Yes Status: Suspected (4) Hypotension Current Visit: Yes Status: Acute (5) CAD (coronary artery disease) Current Visit: Yes Status: Chronic (6) Stented coronary artery Current Visit: Yes Status: Chronic (7) Pancytopenia Current Visit: Yes Status: Acute (8) Elevated troponin Current Visit: Yes Status: Acute (9) Acute on chronic renal failure Current Visit: Yes Status: Acute (10) Diabetes Current Visit: Yes Status: Chronic (11) Obesity Current Visit: Yes Status: Chronic (12) Altered mental status Current Visit: Yes Status: Acute
[2019-03-11] MEDS: FLAGYL 500 MG/100 ML 500 MG/100 ML BAG IV SCH ×2 (15:00→22:28)
--- NOTE | 2019-03-11 15:14 | Cat Scan Report ---
CT NECK WITH CONTRAST: HISTORY: Dental/submandibular abscess. TECHNIQUE: Helical CT following IV contrast. Sagittal and coronal reformatted images. FINDINGS: The parotid and submandibular glands are normal. The carotid sheaths are intact. There is no evidence of adenopathy within the neck. The thyroid gland is normal. The glottic structures are normal. The airway is patent. Strap musculature is unremarkable. Hyoid bone and thyroid cartilage are intact. An endotracheal tube is in position. IMPRESSION: Unremarkable CT neck.
--- NOTE | 2019-03-11 15:17 | Cat Scan Report ---
CT FACIAL BONES WITHOUT CONTRAST: HISTORY: Dental/submandibular abscess. TECHNIQUE: Helical CT images with sagittal and coronal CT reformations. FINDINGS: There is poor dentition with multiple absent teeth. There is one small periapical tooth abscess in the right sided mandibular premolar. This is best demonstrated on image 28, series 3. This is contained within the bone. There is no evidence for extension to the adjacent soft tissues. The parotid and submandibular glands are unremarkable. The facial bones are intact. No evidence for fracture or bony destruction. There is moderate mucosal thickening throughout the ethmoid, sphenoid and maxillary sinuses. IMPRESSION: Small periapical tooth abscess is identified and a right sided mandibular premolar. No extension into the adjacent soft tissues. Very poor dentition. Chronic sinusitis.
--- NOTE | 2019-03-11 17:33 | Event Note ---
Date: 03/11/19 Patient seen and evaluated Same condition Patient on Diprivan drip patient intubated Anoxic encephalopathy
[2019-03-11] MEDS: SODIUM CHLORIDE FLUSH SYRINGE 10 ML IV SCH ×2 (17:48→22:28)
[2019-03-11] MEDS: ROCEPHIN/NS 2 GM/100 ML 2 GM/100 ML BAG IV SCH ×2 (18:51→22:28)
[2019-03-11] MEDS: fentaNYL DRIP Premix 2,000 MCG/100 ML BAG IV SCH (19:43)
[2019-03-11 20:13] LABS: LDL Cholesterol,Direct 4 mg/dL (50-130)
[2019-03-11] MEDS: NACL 0.9% 1000 ML 1,000 ML IV SCH (20:40)
[2019-03-11 20:54] LABS: HDL Cholesterol < 3 mg/dL (40-59)
[2019-03-11] MEDS: TYLENOL PR PRN (23:47)
[2019-03-12] MEDS: HumaLOG SUB-Q SCH ×4 (00:12→18:00)
[2019-03-12] MEDS: LEVOPHED DRIP 4 MG/NS 250 ML 4 MG/250 ML BAG IV SCH (01:47)
[2019-03-12] MEDS: NACL 0.9% 1000 ML 1,000 ML IV SCH (04:53)
[2019-03-12] MEDS: TYLENOL PR PRN (04:53)
[2019-03-12] MEDS: FLAGYL 500 MG/100 ML 500 MG/100 ML BAG IV SCH ×3 (05:01→21:57)
[2019-03-12 05:34] LABS: Hematocrit 21.9 % (35.5-45.6); Hemoglobin 7.2 gm/dl (11.8-15.2); Mean Corpuscular HGB Conc 33 % (32-34); Mean Corpuscular Volume 98 fl (84-94); Red Blood Count 2.24 M/mm3 (3.65-5.03); Red Cell Distribution Width 18.3 % (13.2-15.2)
[2019-03-12 05:36] LABS: Platelet Count 38 K/mm3 (140-440)
[2019-03-12 05:50] LABS: Albumin 2.7 g/dL (3.9-5); Calcium 6.5 mg/dL (8.4-10.2)
[2019-03-12] MEDS ORDERED: KIONEX PO ONE (06:19)
[2019-03-12 06:20] LABS: Basophils % (Manual) 0 % (0.0-1.8); Eosinophils % (Manual) 0 % (0.0-4.3)
[2019-03-12 06:21] LABS: Poikilocytosis 1+; Total Cells Counted 100
--- NOTE | 2019-03-12 08:28 | Progress Note ---
Assessment and Plan Cultures: Blood culture 03/10/2019 GPC in pair/chains Tracheal asp 03/10/2019 poor specimen Assessment: 54 y/o male with history of diabetes, hypertension, chronic kidney disease, coronary artery disease admitted on 03/10/2019 due to a week history of facial/mouth pain (?dental pain) associated with generalized weakness, cold sensation, cough with dean sputum production and body aches, 48 hour-history of sore throat, in the ED patient went into PEA arrest s/p CPR: 1) Severe Sepsis with PEA arrest and transient shock post arrest: still high fever, bandemia. Currently off pressors. Etiology likely due to GPC bacteremia. UA with 24 wbc with no LE ? mild UTI (does not explain severity of sepsis). Influenza rapid negative. CXR and CT chest no consolidations. 2) GPC in pair/chains bacteremia: source unclear ? dental abscess, meningitis, early aspiration pneumonia. Blood culture 03/10/2019 GPC in pair/chains. CT face showed a small right mandibular premolar abscess, poor dentition and chronic sinusitis. 3) Acute encephalopathy: post arrest +/- due to infection ? meningitis ? ischemic brain injury. CT head some indistinctness and loss of dean-white matter differentiation and indistinct visualization of the basal ganglia. This is nonspecific finding but may be seen with diffuse hypoxic ischemic brain injury. 4) Acute respiratory failure: now intubated. CT chest without contrast shows pericardial effusion measuring up to 1.4 cm in transverse diameter, posterior atelectasis both lungs. Minimal pleural fluid collection. 5) Thrombocytopenia: from sepsis 6) ISMAEL on CKD: renally adjusted meds. Recommendations: - follow-up blood cultures ID and MICs - obtain lumbar puncture-send CSF for Gram, culture, cell count, diff, VRDL, cry pto. Discussed with Dr Orourke - obtain TTE r/o endocarditis - droplet precautions - continue ceftriaxone 2 gm IV q 12 hour - continue vancomycin renally adjusted - continue flagyl for now for colitis ? - if diarrhea collect stool for C diff Will follow. Marietta Ahuja MD Infectious Diseases Yield Improvement Engineer [facility] M [phone] O [phone] Subjective Date of service: 03/12/19 Principal diagnosis: severe sepsis Interval history: Patient remains intubated, off pressors, no sedation, unresponsive. High grade fever 102. ROS unable to obtain Objective - Exam Narrative Exam: General: on sedative intubated in NAD FiO2 48% Eyes: anicteric sclerae, moist conjunctivae; no lid-lag; PERRLA HENT: Atraumatic; oropharynx ETT with creamy thich sputum Neck: Trachea midline; ryan swollen neck vs obese body habitus Lungs: loud ryan rhonchi CV: RRR no murmur Abdomen: Soft, non-tender; obese Extremities: no edema, cyanosis Skin: no rash, ulcers or subcutaneous nodules Psych: unresponsive no agitated. Neuro: unresponsive no agitated - Constitutional Vitals: Vital Signs Temp Pulse Resp BP Pulse Ox 101.7 F H 80 22 109/52 96 03/12/19 04:00 03/12/19 07:56 03/12/19 06:15 03/12/19 07:56 03/12/19 07:56 Temperature -Last 24 Hours Temperature 101.7 F Temperature 102.1 F Temperature 101.0 F Temperature 97.7 F Temperature 98.0 F - Labs CBC & Chem 7: 03/12/19 05:06 03/12/19 07:19 Labs: Abnormal lab results 03/11/19 03/11/19 03/11/19 Range/Units 00:50 13:07 18:36 RBC (3.65-5.03) M/mm3 Hgb (11.8-15.2) gm/dl Hct (35.5-45.6) % MCV (84-94) fl RDW (13.2-15.2) % Plt Count (140-440) K/mm3 Seg Neuts % (Manual) (40.0-70.0) % Monocytes % (Manual) (0.0-7.3) % Seg Neutrophils # Man (1.8-7.7) K/mm3 Monocytes # (Manual) (0.0-0.8) K/mm3 POC ABG pH (7.35-7.45) Potassium (3.6-5.0) mmol/L Carbon Dioxide (22-30) mmol/L BUN (9-20) mg/dL Creatinine (0.8-1.5) mg/dL Glucose (75-100) mg/dL POC Glucose 185 H 126 H (70-105) Calcium (8.4-10.2) mg/dL Total Bilirubin (0.1-1.2) mg/dL AST (5-40) units/L ALT (7-56) units/L Total Protein (6.3-8.2) g/dL Albumin (3.9-5) g/dL Cholesterol < 4 L (50-199) mg/dL LDL Cholesterol Direct 4 L (50-130) mg/dL HDL Cholesterol < 3 L (40-59) mg/dL 03/11/19 03/12/19 03/12/19 Range/Units 23:45 04:25 05:06 RBC 2.24 L (3.65-5.03) M/mm3 Hgb 7.2 L (11.8-15.2) gm/dl Hct 21.9 L (35.5-45.6) % MCV 98 H (84-94) fl RDW 18.3 H (13.2-15.2) % Plt Count 38 L (140-440) K/mm3 Seg Neuts % (Manual) 4.0 L (40.0-70.0) % Monocytes % (Manual) 69.0 H (0.0-7.3) % Seg Neutrophils # Man 0.3 L (1.8-7.7) K/mm3 Monocytes # (Manual) 4.9 H (0.0-0.8) K/mm3 POC ABG pH 7.320 L (7.35-7.45) Potassium (3.6-5.0) mmol/L Carbon Dioxide (22-30) mmol/L BUN (9-20) mg/dL Creatinine (0.8-1.5) mg/dL Glucose (75-100) mg/dL POC Glucose 137 H (70-105) Calcium (8.4-10.2) mg/dL Total Bilirubin (0.1-1.2) mg/dL AST (5-40) units/L ALT (7-56) units/L Total Protein (6.3-8.2) g/dL Albumin (3.9-5) g/dL Cholesterol (50-199) mg/dL LDL Cholesterol Direct (50-130) mg/dL HDL Cholesterol (40-59) mg/dL 03/12/19 03/12/19 03/12/19 Range/Units 05:06 05:57 07:19 RBC (3.65-5.03) M/mm3 Hgb (11.8-15.2) gm/dl Hct (35.5-45.6) % MCV (84-94) fl RDW (13.2-15.2) % Plt Count (140-440) K/mm3 Seg Neuts % (Manual) (40.0-70.0) % Monocytes % (Manual) (0.0-7.3) % Seg Neutrophils # Man (1.8-7.7) K/mm3 Monocytes # (Manual) (0.0-0.8) K/mm3 POC ABG pH (7.35-7.45) Potassium 6.6 H* D 6.6 H* (3.6-5.0) mmol/L Carbon Dioxide 17 L (22-30) mmol/L BUN 66 H (9-20) mg/dL Creatinine 5.6 H D (0.8-1.5) mg/dL Glucose 149 H (75-100) mg/dL POC Glucose 165 H (70-105) Calcium 6.5 L (8.4-10.2) mg/dL Total Bilirubin 1.90 H (0.1-1.2) mg/dL AST 782 H (5-40) units/L ALT 382 H (7-56) units/L Total Protein 5.7 L (6.3-8.2) g/dL Albumin 2.7 L (3.9-5) g/dL Cholesterol (50-199) mg/dL LDL Cholesterol Direct (50-130) mg/dL HDL Cholesterol (40-59) mg/dL
--- NOTE | 2019-03-12 08:55 | Progress Note ---
Assessment and Plan -s/p Cardiopulmonary arrest with ROSC -Acute on chronic hypoxemic respiratory failure on MVS -Severe sepsis with septic shock - Streptococcal -Acute on chronic renal failure (multifactorial) -Acute metabolic-toxic encephalopathy -Morbid obesity -h/o CAD s/p 2 stents -Pancytopenia- probably secondary to sepsis and underlying chronic liver disease -Type 2 DM -h/o Alcohol abuse disorder -Blood cultures, urine cultures with urinalysis, tracheal aspirate for culture Follow up cultures-Trachea aspirate not dequate sample, UCulture- NGTD, Blood culture- beta hemolytic Strep -Follow up transthoracic echocardiogram -Lung protective strategies -Serial CXR and ABG -VAP bundle addressed -Critical care bundles addressed -Daily SATs and SBTs starting today -Supplemental oxygen to keep O2 sats 90-92% -Bronchodilators -Accuchecks with glycemic control. Target blood glucose <180mg/dL -Address nutrition -Nutrition consult for tube feeding -Aspiration precautions -Agitation management -Titrate sedation to RAAS 0 to -1 -Prevention of delirium, maintenance of sleep-wake cycle -Antibiotic therapy per ID -De-escalate therapy based on microbiology/HAYDER/Cultures -Trend hematologic indices -Avoid nephrotoxic agents, adjust all antibiotics and medications for CrCL and GFR -VTE ( SCDs) and Stress ulcer prophylaxis( therapeutic PPI for now) -Womack catheter in this critically ill patient with acute on chronic renal fail ure, requiring strict intake and output monitoring. Will assess daily, the need for ongoing Womack catheter -Medical management of hyperkalemia, failed. Discussed with renal service will initiate renal replacement therapy CONDITION: CRITICAL PROGNOSIS: GUARDED CODE STATUS: FULL CODE Discussed extensively with the patient's daughter who was at the bedside. All her questions were answered. Discussed with the Renal, ID service and with RT/RN Discussed on ICU-IDT rounds The high probability of a clinically significant, sudden or life-threatening deterioration of the [respiratory, cardiovascular, renal, neurology] system(s) required my full and direct attention, intervention and personal management. The aggregate critical care time was [45 ] minutes without overlap. Time includes spent on; [x] Data Review and interpretation [x] Patient assessment and monitoring of vital signs [x] Documentation [x] Medication orders and management Subjective Date of service: 03/12/19 Principal diagnosis: severe sepsis Interval history: Patient is seen today for: s/p cardiopulmonary arrest, acute hypoxemic respiraotry failure, ISMAEL, Severe hyperkalemia, Severe sepsis Seen and examined at bedside; 24hour events reviewed; nursing and respiratory care staff consulted; no adverse overnight events reported to me; vitals, albs, medications, chart reviewed. Daughter at the bedside. Remains critically ill. On full mechanical ventilatory support AC-18/450/6/45% ABG 7.32/37/80/19/-7. Currently on HCO3 infusion. ETT 7.5cm at 23cm at the lip. On fentanyl infusion, remains unresponsive On Vancomycin, Flagyl, Rocephin added for possible meningitis. Objective - Exam Narrative Exam: General appearance: morbidly obese, facial edema, sedated, grimaces to pain. Atraumatic, normocephalic, orally intubated ETT to MVS, 7.5cm at 23cm at the lip. No patient-ventilator dys-synchrony Eyes: anicteric sclerae, moist conjunctivae; HENT: Atraumatic; large neck, no neck stiffness Neck: Trachea midline; bilateral swollen neck , no adenopathy, LIJ CVC Lungs: Diminshed AE bialterally, occasional rhonci CV: RRR, S1,S2, no murmurs, gallops or rubs Abdomen: Soft, non-tender; obese Womack catheter Extremities: no edema, cyanosis, DP palpable, Skin: no rash, ulcers or subcutaneous nodules Psych: sedated. Neuro: sedated Vital Signs - 12hr 03/11/19 03/11/19 03/11/19 21:01 21:15 21:30 Temperature Pulse Rate 85 84 85 Respiratory 25 H 26 H 25 H Rate Blood Pressure 95/45 93/43 105/45 O2 Sat by Pulse 97 95 97 Oximetry 03/11/19 03/11/19 03/11/19 21:45 22:00 22:15 Temperature Pulse Rate 84 85 85 Respiratory 24 25 H 24 Rate Blood Pressure 105/45 106/51 106/51 O2 Sat by Pulse 98 96 98 Oximetry 03/11/19 03/11/19 03/11/19 22:30 22:45 23:00 Temperature Pulse Rate 84 85 85 Respiratory 23 25 H 23 Rate Blood Pressure 108/52 108/52 113/47 O2 Sat by Pulse 99 96 98 Oximetry 03/11/19 03/11/19 03/11/19 23:09 23:15 23:30 Temperature Pulse Rate 82 83 86 Respiratory 21 23 Rate Blood Pressure 113/47 113/47 91/43 O2 Sat by Pulse 97 98 96 Oximetry 03/11/19 03/12/19 03/12/19 23:45 00:00 00:15 Temperature 102.1 F H Pulse Rate 83 83 82 Respiratory 23 24 24 Rate Blood Pressure 91/43 97/35 97/35 O2 Sat by Pulse 97 95 96 Oximetry 03/12/19 03/12/19 03/12/19 00:30 00:45 01:00 Temperature Pulse Rate 82 81 80 Respiratory 22 23 22 Rate Blood Pressure 102/44 102/44 104/38 O2 Sat by Pulse 96 96 96 Oximetry 03/12/19 03/12/19 03/12/19 01:15 01:30 01:45 Temperature Pulse Rate 79 80 79 Respiratory 24 21 22 Rate Blood Pressure 104/38 108/42 108/42 O2 Sat by Pulse 96 97 96 Oximetry 03/12/19 03/12/19 03/12/19 02:00 02:15 02:30 Temperature Pulse Rate 79 80 79 Respiratory 20 19 22 Rate Blood Pressure 106/46 104/51 108/45 O2 Sat by Pulse 95 96 97 Oximetry 03/12/19 03/12/19 03/12/19 02:45 02:54 03:00 Temperature Pulse Rate 81 83 81 Respiratory 23 21 Rate Blood Pressure 108/45 119/47 O2 Sat by Pulse 96 97 Oximetry 03/12/19 03/12/19 03/12/19 03:15 03:30 03:40 Temperature Pulse Rate 81 80 80 Respiratory 22 22 Rate Blood Pressure 119/47 132/54 132/54 O2 Sat by Pulse 96 96 95 Oximetry 03/12/19 03/12/19 03/12/19 03:45 04:00 04:15 Temperature 101.7 F H Pulse Rate 80 81 81 Respiratory 22 22 20 Rate Blood Pressure 132/54 121/48 121/48 O2 Sat by Pulse 95 95 96 Oximetry 03/12/19 03/12/19 03/12/19 04:30 04:45 05:00 Temperature Pulse Rate 78 81 81 Respiratory 21 21 22 Rate Blood Pressure 121/49 121/49 110/54 O2 Sat by Pulse 96 96 95 Oximetry 03/12/19 03/12/19 03/12/19 05:15 05:31 05:45 Temperature Pulse Rate 78 81 81 Respiratory 21 22 22 Rate Blood Pressure 110/54 103/44 103/49 O2 Sat by Pulse 96 95 95 Oximetry 03/12/19 03/12/19 03/12/19 06:00 06:15 07:56 Temperature Pulse Rate 80 80 80 Respiratory 22 22 Rate Blood Pressure 109/55 109/55 109/52 O2 Sat by Pulse 96 96 96 Oximetry CBC and BMP: 03/12/19 05:06 03/12/19 07:19 ABG, PT/INR, D-dimer: ABG POC ABG pH 7.320 (7.35-7.45) L 03/12/19 04:25 POC ABG pCO2 37.1 (35-45) 03/12/19 04:25 POC ABG pO2 80 (80-105) 03/12/19 04:25 POC ABG HCO3 19.1 (22-26 mml/L) 03/12/19 04:25 POC ABG Total CO2 20 (23-27mmol/L) 03/12/19 04:25 POC ABG O2 Sat 95 03/12/19 04:25 PT/INR, D-dimer PT 14.4 Sec. (12.2-14.9) 03/10/19 17:57 INR 1.15 (0.87-1.13) H 03/10/19 17:57 Abnormal lab findings: Abnormal Labs 03/10/19 03/10/19 03/10/19 17:57 17:57 17:57 WBC 1.2 L* RBC 2.46 L Hgb 7.9 L Hct 23.2 L MCV RDW 18.2 H Plt Count 47 L [place] # 0.9 H Seg Neuts % (Manual) 6.0 L Lymphocytes % (Manual) 74.0 H Monocytes % (Manual) 20.0 H Nucleated RBC % Seg Neutrophils # 0.1 L Seg Neutrophils # Man 0.1 L Lymphocytes # (Manual) 0.9 L Monocytes # (Manual) INR POC ABG pH POC ABG pCO2 POC ABG pO2 Potassium Carbon Dioxide BUN 46 H Creatinine 2.9 H Glucose 200 H POC Glucose Lactic Acid 2.50 H* Calcium 7.6 L Total Bilirubin AST ALT Total Creatine Kinase CK-MB (CK-2) Troponin T Total Protein Albumin 3.2 L Cholesterol LDL Cholesterol Direct HDL Cholesterol Urine WBC (Auto) 03/10/19 03/10/19 03/10/19 17:57 18:01 19:16 WBC RBC Hgb Hct MCV RDW Plt Count [place] # Seg Neuts % (Manual) Lymphocytes % (Manual) Monocytes % (Manual) Nucleated RBC % Seg Neutrophils # Seg Neutrophils # Man Lymphocytes # (Manual) Monocytes # (Manual) INR 1.15 H POC ABG pH POC ABG pCO2 POC ABG pO2 Potassium Carbon Dioxide BUN Creatinine Glucose POC Glucose 234 H Lactic Acid 2.80 H* Calcium Total Bilirubin AST ALT Total Creatine Kinase CK-MB (CK-2) Troponin T Total Protein Albumin Cholesterol LDL Cholesterol Direct HDL Cholesterol Urine WBC (Auto) 03/10/19 03/10/19 03/10/19 20:56 21:32 23:06 WBC RBC Hgb Hct MCV RDW Plt Count [place] # Seg Neuts % (Manual) Lymphocytes % (Manual) Monocytes % (Manual) Nucleated RBC % Seg Neutrophils # Seg Neutrophils # Man Lymphocytes # (Manual) Monocytes # (Manual) INR POC ABG pH 7.274 L POC ABG pCO2 46.6 H POC ABG pO2 315 H Potassium Carbon Dioxide BUN Creatinine Glucose POC Glucose Lactic Acid Calcium Total Bilirubin AST ALT Total Creatine Kinase CK-MB (CK-2) Troponin T Total Protein Albumin Cholesterol LDL Cholesterol Direct HDL Cholesterol Urine WBC (Auto) 24.0 H 03/10/19 03/11/19 03/11/19 23:29 00:50 05:01 WBC RBC 2.29 L Hgb 7.3 L Hct 22.2 L MCV 97 H RDW 18.2 H Plt Count 40 L [place] # Seg Neuts % (Manual) 8.0 L Lymphocytes % (Manual) 67.0 H Monocytes % (Manual) 24.0 H Nucleated RBC % 5.0 H Seg Neutrophils # Seg Neutrophils # Man 0.4 L Lymphocytes # (Manual) Monocytes # (Manual) 1.2 H INR POC ABG pH POC ABG pCO2 POC ABG pO2 Potassium Carbon Dioxide BUN Creatinine Glucose POC Glucose 237 H Lactic Acid Calcium Total Bilirubin AST ALT Total Creatine Kinase 513 H CK-MB (CK-2) Troponin T 0.075 H Total Protein Albumin Cholesterol < 4 L LDL Cholesterol Direct 4 L HDL Cholesterol < 3 L Urine WBC (Auto) 03/11/19 03/11/19 03/11/19 05:01 06:06 06:07 WBC RBC Hgb Hct MCV RDW Plt Count [place] # Seg Neuts % (Manual) Lymphocytes % (Manual) Monocytes % (Manual) Nucleated RBC % Seg Neutrophils # Seg Neutrophils # Man Lymphocytes # (Manual) Monocytes # (Manual) INR POC ABG pH POC ABG pCO2 32.8 L POC ABG pO2 Potassium 5.3 H Carbon Dioxide 19 L BUN 49 H Creatinine 3.7 H Glucose 203 H POC Glucose Lactic Acid Calcium 7.1 L Total Bilirubin AST ALT Total Creatine Kinase 1156 H CK-MB (CK-2) 4.6 H Troponin T 0.077 H Total Protein Albumin Cholesterol LDL Cholesterol Direct HDL Cholesterol Urine WBC (Auto) 03/11/19 03/11/19 03/11/19 06:35 13:07 18:36 WBC RBC Hgb Hct MCV RDW Plt Count [place] # Seg Neuts % (Manual) Lymphocytes % (Manual) Monocytes % (Manual) Nucleated RBC % Seg Neutrophils # Seg Neutrophils # Man Lymphocytes # (Manual) Monocytes # (Manual) INR POC ABG pH POC ABG pCO2 POC ABG pO2 Potassium Carbon Dioxide BUN Creatinine Glucose POC Glucose 209 H 185 H 126 H Lactic Acid Calcium Total Bilirubin AST ALT Total Creatine Kinase CK-MB (CK-2) Troponin T Total Protein Albumin Cholesterol LDL Cholesterol Direct HDL Cholesterol Urine WBC (Auto) 03/11/19 03/12/19 03/12/19 23:45 04:25 05:06 WBC RBC 2.24 L Hgb 7.2 L Hct 21.9 L MCV 98 H RDW 18.3 H Plt Count 38 L [place] # Seg Neuts % (Manual) 4.0 L Lymphocytes % (Manual) Monocytes % (Manual) 69.0 H Nucleated RBC % Seg Neutrophils # Seg Neutrophils # Man 0.3 L Lymphocytes # (Manual) Monocytes # (Manual) 4.9 H INR POC ABG pH 7.320 L POC ABG pCO2 POC ABG pO2 Potassium Carbon Dioxide BUN Creatinine Glucose POC Glucose 137 H Lactic Acid Calcium Total Bilirubin AST ALT Total Creatine Kinase CK-MB (CK-2) Troponin T Total Protein Albumin Cholesterol LDL Cholesterol Direct HDL Cholesterol Urine WBC (Auto) 03/12/19 03/12/19 03/12/19 05:06 05:57 07:19 WBC RBC Hgb Hct MCV RDW Plt Count [place] # Seg Neuts % (Manual) Lymphocytes % (Manual) Monocytes % (Manual) Nucleated RBC % Seg Neutrophils # Seg Neutrophils # Man Lymphocytes # (Manual) Monocytes # (Manual) INR POC ABG pH POC ABG pCO2 POC ABG pO2 Potassium 6.6 H* D 6.6 H* Carbon Dioxide 17 L BUN 66 H Creatinine 5.6 H D Glucose 149 H POC Glucose 165 H Lactic Acid Calcium 6.5 L Total Bilirubin 1.90 H AST 782 H ALT 382 H Total Creatine Kinase CK-MB (CK-2) Troponin T Total Protein 5.7 L Albumin 2.7 L Cholesterol LDL Cholesterol Direct HDL Cholesterol Urine WBC (Auto) Chest x-ray: image reviewed Allied health notes reviewed: RT
[2019-03-12] MEDS: PEPCID IV SCH (10:00)
[2019-03-12] MEDS: ROCEPHIN/NS 2 GM/100 ML 2 GM/100 ML BAG IV SCH ×2 (10:00→22:10)
[2019-03-12] MEDS: SODIUM CHLORIDE FLUSH SYRINGE 10 ML IV SCH (10:00)
--- NOTE | 2019-03-12 10:08 | Progress Note ---
Assessment and Plan Critical care time 32 minutes - Patient Problems (1) Acute metabolic encephalopathy Current Visit: Yes Status: Acute Plan to address problem: Multifactorial Sepsis Possible anoxic encephalopathy (2) Acute on chronic renal failure Current Visit: Yes Status: Acute Qualifiers: Chronic kidney disease stage: stage 3 (moderate) Plan to address problem: ATN Nephrology following (3) Acute respiratory failure Current Visit: Yes Status: Acute Qualifiers: Respiratory failure complication: hypoxia Qualified Code(s): J96.01 - Acute respiratory failure with hypoxia Plan to address problem: S/p cardiac arrest Cont vent support Anoxic Encepahlopathy?? (4) Cardiopulmonary arrest with successful resuscitation Current Visit: Yes Status: Acute Plan to address problem: S/p cardiac arrest in ED with ROSC (5) Hypotension Current Visit: Yes Status: Acute Plan to address problem: On Levophed (6) Sepsis Current Visit: Yes Status: Acute Qualifiers: Sepsis type: Streptococcus group B Qualified Code(s): A40.1 - Sepsis due to streptococcus, group B Plan to address problem: Strep bacteremia On Ceftriaxone and IV Clindamycin (7) T2DM (type 2 diabetes mellitus) Current Visit: Yes Status: Acute Qualifiers: Diabetes mellitus chcf insulin use: unspecified chcf insulin use status Plan to address problem: Coverage for now (8) CAD (coronary artery disease) Current Visit: Yes Status: Chronic Qualifiers: Coronary Disease-Associated Artery/Lesion type: [place] artery [place] vs. transplanted heart: [place] heart Plan to address problem: With stentsx2 from past (9) Stented coronary artery Current Visit: Yes Status: Chronic (10) DVT prophylaxis Current Visit: Yes Status: Acute Plan to address problem: On Heparin and GI prophylaxis Subjective Date of service: 03/12/19 Principal diagnosis: severe sepsis Interval history: 54-year-old man admitted history of hypertension, diabetes, chronic kidney disease, coronary artery disease was brought to the emergency room for evalu ation of shortness of breath, generalized body aches. and daughter at bedside state that he's been sick for a month and a half. Also complaining of chills. She states that he had diarrhea for one month, got worse. + Decrease oral intake Chest x-ray was ordered in the emergency room, while the robotics technician was trying to get help to get the x-ray done, upon return to the room, the patient was not breathing. He was successfully resuscitated, intubated. He was started on vancomycin, Zosyn and levophed drip. Admitted for Acute resp failure s/p cardiac arresr and Septic shock. Same condition. Afebrile Overnight events noted Objective - Exam Narrative Exam: Intubated - Constitutional Vitals: Vital Signs - 12hr 03/11/19 03/11/19 03/11/19 22:15 22:30 22:45 Temperature Pulse Rate 85 84 85 Respiratory 24 23 25 H Rate Blood Pressure 106/51 108/52 108/52 O2 Sat by Pulse 98 99 96 Oximetry 03/11/19 03/11/19 03/11/19 23:00 23:09 23:15 Temperature Pulse Rate 85 82 83 Respiratory 23 21 Rate Blood Pressure 113/47 113/47 113/47 O2 Sat by Pulse 98 97 98 Oximetry 03/11/19 03/11/19 03/12/19 23:30 23:45 00:00 Temperature 102.1 F H Pulse Rate 86 83 83 Respiratory 23 23 24 Rate Blood Pressure 91/43 91/43 97/35 O2 Sat by Pulse 96 97 95 Oximetry 03/12/19 03/12/19 03/12/19 00:15 00:30 00:45 Temperature Pulse Rate 82 82 81 Respiratory 24 22 23 Rate Blood Pressure 97/35 102/44 102/44 O2 Sat by Pulse 96 96 96 Oximetry 03/12/19 03/12/19 03/12/19 01:00 01:15 01:30 Temperature Pulse Rate 80 79 80 Respiratory 22 24 21 Rate Blood Pressure 104/38 104/38 108/42 O2 Sat by Pulse 96 96 97 Oximetry 03/12/19 03/12/19 03/12/19 01:45 02:00 02:15 Temperature Pulse Rate 79 79 80 Respiratory 22 20 19 Rate Blood Pressure 108/42 106/46 104/51 O2 Sat by Pulse 96 95 96 Oximetry 03/12/19 03/12/19 03/12/19 02:30 02:45 02:54 Temperature Pulse Rate 79 81 83 Respiratory 22 23 Rate Blood Pressure 108/45 108/45 O2 Sat by Pulse 97 96 Oximetry 03/12/19 03/12/19 03/12/19 03:00 03:15 03:30 Temperature Pulse Rate 81 81 80 Respiratory 21 22 22 Rate Blood Pressure 119/47 119/47 132/54 O2 Sat by Pulse 97 96 96 Oximetry 03/12/19 03/12/19 03/12/19 03:40 03:45 04:00 Temperature 101.7 F H Pulse Rate 80 80 81 Respiratory 22 22 Rate Blood Pressure 132/54 132/54 121/48 O2 Sat by Pulse 95 95 95 Oximetry 03/12/19 03/12/19 03/12/19 04:15 04:30 04:45 Temperature Pulse Rate 81 78 81 Respiratory 20 21 21 Rate Blood Pressure 121/48 121/49 121/49 O2 Sat by Pulse 96 96 96 Oximetry 03/12/19 03/12/19 03/12/19 05:00 05:15 05:31 Temperature Pulse Rate 81 78 81 Respiratory 22 21 22 Rate Blood Pressure 110/54 110/54 103/44 O2 Sat by Pulse 95 96 95 Oximetry 03/12/19 03/12/19 03/12/19 05:45 06:00 06:15 Temperature Pulse Rate 81 80 80 Respiratory 22 22 22 Rate Blood Pressure 103/49 109/55 109/55 O2 Sat by Pulse 95 96 96 Oximetry 03/12/19 07:56 Temperature Pulse Rate 80 Respiratory Rate Blood Pressure 109/52 O2 Sat by Pulse 96 Oximetry General appearance: Present: mild distress, well-nourished - EENT Eyes: PERRL, EOM intact ENT: hearing intact, clear oral mucosa Ears: bilateral: normal - Neck Neck: supple, normal ROM - Respiratory Respiratory effort: normal Respiratory: bilateral: CTA - Breasts Breasts: normal - Cardiovascular Heart rate: 78 Rhythm: regular Heart Sounds: Present: S1 & S2. Absent: gallop, rub Extremities: no ischemia, pulses intact, No edema, normal color, Full ROM - Gastrointestinal General gastrointestinal: Present: soft, non-tender, non-distended, normal bowel sounds - Genitourinary Male genitourinary: normal - Integumentary Integumentary: clear, warm, dry - Musculoskeletal Musculoskeletal: generalized weakness - Neurologic Neurologic: other (Intubated) - Allied health notes Allied health notes reviewed: nursing, case management - Labs CBC & Chem 7: 03/14/19 13:43 03/13/19 09:11 Labs: Abnormal lab results 03/11/19 03/11/19 03/11/19 Range/Units 00:50 13:07 18:36 RBC (3.65-5.03) M/mm3 Hgb (11.8-15.2) gm/dl Hct (35.5-45.6) % MCV (84-94) fl RDW (13.2-15.2) % Plt Count (140-440) K/mm3 Seg Neuts % (Manual) (40.0-70.0) % Monocytes % (Manual) (0.0-7.3) % Seg Neutrophils # Man (1.8-7.7) K/mm3 Monocytes # (Manual) (0.0-0.8) K/mm3 POC ABG pH (7.35-7.45) Potassium (3.6-5.0) mmol/L Carbon Dioxide (22-30) mmol/L BUN (9-20) mg/dL Creatinine (0.8-1.5) mg/dL Glucose (75-100) mg/dL POC Glucose 185 H 126 H (70-105) Calcium (8.4-10.2) mg/dL Total Bilirubin (0.1-1.2) mg/dL AST (5-40) units/L ALT (7-56) units/L Total Protein (6.3-8.2) g/dL Albumin (3.9-5) g/dL Cholesterol < 4 L (50-199) mg/dL LDL Cholesterol Direct 4 L (50-130) mg/dL HDL Cholesterol < 3 L (40-59) mg/dL 03/11/19 03/12/19 03/12/19 Range/Units 23:45 04:25 05:06 RBC 2.24 L (3.65-5.03) M/mm3 Hgb 7.2 L (11.8-15.2) gm/dl Hct 21.9 L (35.5-45.6) % MCV 98 H (84-94) fl RDW 18.3 H (13.2-15.2) % Plt Count 38 L (140-440) K/mm3 Seg Neuts % (Manual) 4.0 L (40.0-70.0) % Monocytes % (Manual) 69.0 H (0.0-7.3) % Seg Neutrophils # Man 0.3 L (1.8-7.7) K/mm3 Monocytes # (Manual) 4.9 H (0.0-0.8) K/mm3 POC ABG pH 7.320 L (7.35-7.45) Potassium (3.6-5.0) mmol/L Carbon Dioxide (22-30) mmol/L BUN (9-20) mg/dL Creatinine (0.8-1.5) mg/dL Glucose (75-100) mg/dL POC Glucose 137 H (70-105) Calcium (8.4-10.2) mg/dL Total Bilirubin (0.1-1.2) mg/dL AST (5-40) units/L ALT (7-56) units/L Total Protein (6.3-8.2) g/dL Albumin (3.9-5) g/dL Cholesterol (50-199) mg/dL LDL Cholesterol Direct (50-130) mg/dL HDL Cholesterol (40-59) mg/dL 03/12/19 03/12/19 03/12/19 Range/Units 05:06 05:57 07:19 RBC (3.65-5.03) M/mm3 Hgb (11.8-15.2) gm/dl Hct (35.5-45.6) % MCV (84-94) fl RDW (13.2-15.2) % Plt Count (140-440) K/mm3 Seg Neuts % (Manual) (40.0-70.0) % Monocytes % (Manual) (0.0-7.3) % Seg Neutrophils # Man (1.8-7.7) K/mm3 Monocytes # (Manual) (0.0-0.8) K/mm3 POC ABG pH (7.35-7.45) Potassium 6.6 H* D 6.6 H* (3.6-5.0) mmol/L Carbon Dioxide 17 L (22-30) mmol/L BUN 66 H (9-20) mg/dL Creatinine 5.6 H D (0.8-1.5) mg/dL Glucose 149 H (75-100) mg/dL POC Glucose 165 H (70-105) Calcium 6.5 L (8.4-10.2) mg/dL Total Bilirubin 1.90 H (0.1-1.2) mg/dL AST 782 H (5-40) units/L ALT 382 H (7-56) units/L Total Protein 5.7 L (6.3-8.2) g/dL Albumin 2.7 L (3.9-5) g/dL Cholesterol (50-199) mg/dL LDL Cholesterol Direct (50-130) mg/dL HDL Cholesterol (40-59) mg/dL
[2019-03-12] MEDS: D5W IV SCH (11:00)
[2019-03-12] MEDS: SODIUM BICARBONATE IV SCH (11:00)
[2019-03-12] MEDS ORDERED: SODIUM BICARBONATE FEEDTUBE PRN (11:58)
[2019-03-12] MEDS ORDERED: SIMPLE SYRUP FEEDTUBE PRN ×2 (11:58)
[2019-03-12] MEDS ORDERED: PANCREAZE DR 10,500 UNIT FEEDTUBE PRN (11:58)
--- NOTE | 2019-03-12 12:12 | Progress Note ---
Assessment and Plan Pt s/p PEA cardiac arrest on 03/10. He is intubated, hypotensive, unresponsive. troponins minimally elevated, ECG with SR and no acute ischemic changes. He underwent echo on 03/05/2019 in our office which showed EF 60-65%, mild LVH, LA mildly dilated, small pericardial effusion. Chest CT w/o contrast showed small pericardial effusion. Will f/u echo to re-evaluate LV function and pericardial effusion. Head CT with some ? changes suspicious for hypoxic ischemic brain injury. Blood cultures positive for beta hemolytic strep type A. Infectious disease team is following. Renal indices worsening. Nephrology has been consulted. Cont supportive management. The patient has been seen in conjunction with Dr. Beth Robison who agrees with the assessment and plan of care. - Patient Problems (1) Cardiopulmonary arrest with successful resuscitation Current Visit: Yes Status: Acute (2) Acute respiratory failure Current Visit: Yes Status: Acute (3) Sepsis Current Visit: Yes Status: Acute (4) Hypotension Current Visit: Yes Status: Acute (5) CAD (coronary artery disease) Current Visit: Yes Status: Chronic (6) Stented coronary artery Current Visit: Yes Status: Chronic (7) Pancytopenia Current Visit: Yes Status: Acute (8) Elevated troponin Current Visit: Yes Status: Acute (9) Acute on chronic renal failure Current Visit: Yes Status: Acute (10) Diabetes Current Visit: Yes Status: Chronic (11) Obesity Current Visit: Yes Status: Chronic (12) Altered mental status Current Visit: Yes Status: Acute Subjective Date of service: 03/12/19 Principal diagnosis: severe sepsis Interval history: pt remains intubated, unresponsive off sedation, currently off vasopressors. daughter at bedside. Objective Last Vital Signs Temp 101.7 F H 03/12/19 04:00 Pulse 80 03/12/19 07:56 Resp 22 03/12/19 06:15 BP 109/52 03/12/19 07:56 Pulse Ox 96 03/12/19 07:56 - Physical Examination General: Other (intubated, unresponsive) Cardiac: Positive: Reg Rate and Rhythm, S1/S2 Lungs: Positive: Oxygen, Ventilated Respirations Neuro: Positive: Other (intubated, nonresponsive ) Skin: Negative: Rash Musculoskeletal: No Pain Extremities: Present: edema (trace BLE) - Labs and Meds Cardiac Enzymes 03/12/19 Range/Units 05:06 AST 782 H (5-40) units/L Lipids 03/11/19 Range/Units 00:50 Triglycerides 91 (2-149) mg/dL Cholesterol < 4 L (50-199) mg/dL HDL Cholesterol < 3 L (40-59) mg/dL Cholesterol/HDL Ratio 1.00 % CBC 03/12/19 Range/Units 05:06 WBC 7.1 (4.5-11.0) K/mm3 RBC 2.24 L (3.65-5.03) M/mm3 Hgb 7.2 L (11.8-15.2) gm/dl Hct 21.9 L (35.5-45.6) % Plt Count 38 L (140-440) K/mm3 Comprehensive Metabolic Panel 03/12/19 03/12/19 Range/Units 05:06 07:19 Sodium 141 (137-145) mmol/L Potassium 6.6 H* D 6.6 H* (3.6-5.0) mmol/L Chloride 106.3 (98-107) mmol/L Carbon Dioxide 17 L (22-30) mmol/L BUN 66 H (9-20) mg/dL Creatinine 5.6 H D (0.8-1.5) mg/dL Glucose 149 H (75-100) mg/dL Calcium 6.5 L (8.4-10.2) mg/dL AST 782 H (5-40) units/L ALT 382 H (7-56) units/L Alkaline Phosphatase 100 (35-129) units/L Total Protein 5.7 L (6.3-8.2) g/dL Albumin 2.7 L (3.9-5) g/dL - Imaging and Cardiology EKG: report reviewed, image reviewed Echo: report reviewed ( 03/05/2019 showed EF 60-65%, mild LVH, LA mildly dilated, small pericardial effusion. ) - EKG Sinus rhythms and dysrhythmias: sinus rhythm AV and intraventricular conduction: left anterior fascicular
[2019-03-12] MEDS ORDERED: NACL 0.9% 100 ML IV PRN (14:13)
--- NOTE | 2019-03-12 14:29 | Consultation ---
History of Present Illness - Reason for Consult acute renal failure, hyperkalemia, metabolic acidosis - History of Present Illness 54-year-old morbidly obese male with past medical history significant for chronic kidney disease stage III in the setting of diabetes, hypertension, and coronary artery disease, who had been complaining of worsening shortness of breath, cough, generalized weakness and fatigue, as well as a persistent oral abscess presented to the emergency room department yesterday. He unfortunately had a cardiac arrest while in the emergency room while he was being evaluated f or chest x-ray. Since this time he has been intubated, sedated, and on pressor support in the ICU. Nephrology consult is secondary to acute kidney injury and hyperkalemia. He has now become progressively and uric and laboratory studies are concerning for worsening hyperkalemia. He was recently seen by my colleague Dr. Germain in our office earlier this week for initial outpatient evaluation. Dis cussed case entirely with daughter at bedside along with cousin over the phone. Also discussed with ICU attending. Blood cultures have grown gram-positive cocci in pairs and he is being treated for likely bacteremia. Infectious disease consult as well as cardiology consult was reviewed. Patient is currently on norepinephrine GTT and is also receiving bicarbonate drip since this morning. Past History Past Medical History: CAD, diabetes, hypertension, other (as per HPI) Past Surgical History: No surgical history Social history: no significant social history, other (stopped alcohol use 3 months ago) Family history: no significant family history Medications and Allergies Allergies Allergy/AdvReac Type Severity Reaction Status Date / Time No Known Allergies Allergy Verified 03/10/19 17:37 Home Medications Medication Instructions Recorded Confirmed Last Taken Type Allopurinol [Zyloprim] 300 mg PO DAILY 03/10/19 03/10/19 Unknown History Aspirin [Adult Aspirin] 81 mg PO DAILY 03/10/19 03/10/19 Unknown History Atorvastatin [Lipitor Tab] 80 mg PO DAILY 03/10/19 03/10/19 Unknown History Carvedilol [Coreg] 12.5 mg PO BID 03/10/19 03/10/19 Unknown History Clopidogrel [Plavix] 75 mg PO DAILY 03/10/19 03/10/19 Unknown History Gabapentin [Neurontin] 300 mg PO BID 03/10/19 03/10/19 Unknown History Insulin Lispro Protamin/Lispro 33 unit SQ BID 03/10/19 03/10/19 Unknown History [Humalog Mix 75-25 Vial] Lisinopril [Zestril TAB] 10 mg PO DAILY 03/10/19 03/10/19 Unknown History Pantoprazole [Protonix] 40 mg PO DAILY 03/10/19 03/10/19 Unknown History Sitagliptin Phosphate [Januvia] 50 mg PO DAILY 03/10/19 03/10/19 Unknown History Active Meds: Active Medications Acetaminophen (Tylenol) 650 mg PO Q4H PRN PRN Reason: Pain MILD(1-3)/Fever >100.5/[place] Acetaminophen (Tylenol) 650 mg MN Q4H PRN PRN Reason: Pain MILD(1-3)/Fever >100.5/[place] Last Admin: 03/12/19 04:53 Dose: 650 mg Documented by: Lipase/Protease/Amylase (Pancreaze Dr 10,500 Unit) 1 each FEEDTUBE PRN PRN PRN Reason: For Clogged Feeding Tube Dextrose (D50w (25gm) Syringe) 50 ml IV PRN PRN PRN Reason: Hypoglycemia Famotidine (Pepcid) 20 mg IV DAILY [facility] Last Admin: 03/12/19 10:00 Dose: 20 mg Documented by: Fentanyl (Sublimaze) 50 mcg IV Q10MIN PRN PRN Reason: ANALGESIA Hydrophilic Ointment (Vaseline Lip Therapy) 1 applic TP Q2HR PRN PRN Reason: Dry Lips Propofol (Diprivan 10 Mg/Ml) 1,000 mg in 100 mls @ 4.082 mls/hr IV TITR ROXANNE; Protocol Last Titration: 03/11/19 14:30 Dose: Infused Documented by: Norepinephrine (Levophed Drip 4 Mg/Ns 250 Ml) 4 mg in 250 mls @ 7.5 mls/hr IV TITR [facility]; Protocol Last Titration: 03/12/19 04:15 Dose: 0 mcg/min, 0 mls/hr Documented by: Fentanyl Citrate (Fentanyl Drip Premix) 2,000 mcg in 100 mls @ 6.804 mls/hr IV TITR [facility]NE; Protocol Last Titration: 03/11/19 19:43 Dose: 0 mcg/kg/hr, 0 mls/hr Documented by: Ceftriaxone Sodium (Rocephin/Ns 2 Gm/100 Ml) 2 gm in 100 mls @ 200 mls/hr IV Q12HR [facility]OX[facility]; Protocol Last Infusion: 03/11/19 22:58 Dose: Infused Documented by: Metronidazole (Flagyl 500 Mg/100 Ml) 500 mg in 100 mls @ 100 mls/hr IV Q8HR [facility]OX[facility]NE; Protocol Last Infusion: 03/12/19 06:01 Dose: Infused Documented by: Sodium Bicarbonate 150 meq/ (Dextrose) 1,150 mls @ 100 mls/hr IV DIRECT [facility]OXAN[facility] Sodium Chloride (Nacl 0.9%) 100 mls @ 999 mls/hr IV [place] PRN PRN Reason: Hypotension Insulin Human Lispro (Humalog) 0 unit SUB-Q Q6HR [facility]; Protocol Last Admin: 03/12/19 06:01 Dose: Not Given Documented by: Multi-Ingred Cream/Lotion/Oil/Oint (Artificial Tears Ophth Oint) 1 applic OU Q4HR PRN PRN Reason: Dry Eye(s) Ondansetron HCl (Zofran) 4 mg IV Q8H PRN PRN Reason: Nausea And Vomiting Simple Syrup (Simple Syrup) 15 ml FEEDTUBE PRN PRN PRN Reason: Hypoglycemia Simple Syrup (Simple Syrup) 30 ml FEEDTUBE PRN PRN PRN Reason: Hypoglycemia Sodium Bicarbonate (Sodium Bicarbonate) 325 mg FEEDTUBE PRN PRN PRN Reason: For Clogged Feeding Tube Sodium Chloride (Sodium Chloride Flush Syringe 10 Ml) 10 ml IV BID [facility] Last Admin: 03/12/19 10:00 Dose: 10 ml Documented by: Sodium Chloride (Sodium Chloride Flush Syringe 10 Ml) 10 ml IV PRN PRN PRN Reason: LINE FLUSH Review of Systems ROS unobtainable: due to endotracheal tube Exam - Vital Signs Vital signs: Vital Signs Pulse Ox 93 03/10/19 17:28 - General Appearance General appearance: obese, sedated on ventilator, intubated EENT: ATNC, PERRL Neck: Present: neck supple, trachea midline Respiratory: Wheezes, Decreased Breath Sounds Heart: regular, S1S2 Gastrointestinal: Present: normal, normoactive bowel sounds Integumentary: no rash, warm and dry Neurologic: other (unresponsive at this time) Musculoskeletal: Present: other (edema noted in bilateral lower extremities) Results - Lab Results 03/12/19 05:06 03/12/19 07:19 Most recent lab results Calcium 6.5 mg/dL (8.4-10.2) L 03/12/19 05:06 Assessment and Plan - Patient Problems (1) Acute on chronic renal failure Current Visit: Yes Status: Acute Qualifiers: Chronic kidney disease stage: stage 3 (moderate) Plan to address problem: Likely secondary to acute tubular necrosis in the setting of cardiac arrest, possible sepsis. Patient is now anuric. Will start him on hemodialysis for further renal support. Have called and discussed case with vascular surgery who will put in temporary dialysis access line in order to start treatment today. We'll favor to do at least 2 sessions consecutively of hemodialysis to see how he will be able to tolerate. Our general fluid removal every capability may be compromised given his hypotension. Therefore we will try gentle ultrafiltration goal of initially up to 500 mL during his first 2 treatments and then titrate up as appropriate. Stat orders placed for hemodialysis today to be done after line is placed. (2) Hyperkalemia Current Visit: Yes Status: Acute Plan to address problem: No significant changes with treatment medically. In fact his potassium level has worsened over the course the day. In this setting and with worsening renal function, will favor to start patient on dialysis today. We'll run 2 K bath with dialysis. (3) Cardiopulmonary arrest with successful resuscitation Current Visit: Yes Status: Acute Plan to address problem: Return of spontaneous circulation in the emergency room about 2 doses of epinephrine. Patient is on Levothroid at this time and cardiology evaluation has been reviewed and noted. Patient also had a repeat echocardiogram done and we are pending the results at this time. We'll follow up with further recommendations from cardiology standpoint. (4) Sepsis Current Visit: Yes Status: Acute Qualifiers: Sepsis type: Streptococcus group B Qualified Code(s): A40.1 - Sepsis due to streptococcus, group B Plan to address problem: Streptococcal bacteremia noted on initial blood cultures. Patient is on the antibiotics at this time per infectious disease recommendations. Please ensure that antibiotics are dosed appropriately for his decreased creatinine clearance and renal function. (5) Metabolic acidosis Current Visit: Yes Status: Acute Plan to address problem: Will address with hemodialysis. Once started on hemodialysis, would favor that we can discontinue the sodium bicarbonate drip. (6) Hypotension Current Visit: Yes Status: Acute Plan to address problem: Patient continues on appropriate pressor support. Agree with holding any antihypertensive medication at this time given his hemodynamic instability. We'll continue to monitor closely. (7) Type 2 diabetes mellitus with diabetic chronic kidney disease Current Visit: Yes Status: Acute Qualifiers: Chronic kidney disease stage: stage 3 (moderate) Plan to address problem: diabetes management per primary attending.
--- NOTE | 2019-03-12 14:40 | Event Note ---
Date: 03/12/19 Patient is known to our outpatient office and saw us on 03/07 in the office. Will be seeing patient for our nephrology group.
--- NOTE | 2019-03-12 17:31 | Consultation ---
History of Present Illness - Reason for Consult Consult date: 03/12/19 Vascath Placement Requesting physician: EDIL OLSON - History of Present Illness The patient is intubated and unable to give a history. History is obtained from the chart. The patient is a 54-year-old male with a history of multiple medical illnesses who was been complaining of feeling ill for approximately 6 weeks. Over the past 48 hours prior to his admission he became febrile with a p roductive cough and worsening diarrhea with fever and chills and presented to the emergency department. While in the emergency department he had a witnessed cardiac arrest and ACLS protocol was initiated and he was able to be resuscitated. He is not ICU with acute on chronic renal failure with hyp erkalemia and requires emergent hemodialysis. We will consult for placement of a Vas-Cath. Past History Past Medical History: CAD, diabetes, hypertension, other (as per HPI) Past Surgical History: No surgical history Social history: no significant social history, other (stopped alcohol use 3 months ago) Family history: no significant family history Medications and Allergies Allergies Allergy/AdvReac Type Severity Reaction Status Date / Time No Known Allergies Allergy Verified 03/10/19 17:37 Home Medications Medication Instructions Recorded Confirmed Last Taken Type Allopurinol [Zyloprim] 300 mg PO DAILY 03/10/19 03/10/19 Unknown History Aspirin [Adult Aspirin] 81 mg PO DAILY 03/10/19 03/10/19 Unknown History Atorvastatin [Lipitor Tab] 80 mg PO DAILY 03/10/19 03/10/19 Unknown History Carvedilol [Coreg] 12.5 mg PO BID 03/10/19 03/10/19 Unknown History Clopidogrel [Plavix] 75 mg PO DAILY 03/10/19 03/10/19 Unknown History Gabapentin [Neurontin] 300 mg PO BID 03/10/19 03/10/19 Unknown History Insulin Lispro Protamin/Lispro 33 unit SQ BID 03/10/19 03/10/19 Unknown History [Humalog Mix 75-25 Vial] Lisinopril [Zestril TAB] 10 mg PO DAILY 03/10/19 03/10/19 Unknown History Pantoprazole [Protonix] 40 mg PO DAILY 03/10/19 03/10/19 Unknown History Sitagliptin Phosphate [Januvia] 50 mg PO DAILY 03/10/19 03/10/19 Unknown History Active Meds: Active Medications Acetaminophen (Tylenol) 650 mg PO Q4H PRN PRN Reason: Pain MILD(1-3)/Fever >100.5/[place] Acetaminophen (Tylenol) 650 mg ND Q4H PRN PRN Reason: Pain MILD(1-3)/Fever >100.5/[place] Last Admin: 03/12/19 04:53 Dose: 650 mg Documented by: Lipase/Protease/Amylase (Alejandra Manzo 10,500 Unit) 1 each FEEDTUBE PRN PRN PRN Reason: For Clogged Feeding Tube Dextrose (D50w (25gm) Syringe) 50 ml IV PRN PRN PRN Reason: Hypoglycemia Famotidine (Pepcid) 20 mg IV DAILY [facility] Last Admin: 03/12/19 10:00 Dose: 20 mg Documented by: Fentanyl (Sublimaze) 50 mcg IV Q10MIN PRN PRN Reason: ANALGESIA Hydrophilic Ointment (Vaseline Lip Therapy) 1 applic TP Q2HR PRN PRN Reason: Dry Lips Propofol (Diprivan 10 Mg/Ml) 1,000 mg in 100 mls @ 4.082 mls/hr IV TITR [facility]; Protocol Last Titration: 03/11/19 14:30 Dose: Infused Documented by: Norepinephrine (Levophed Drip 4 Mg/Ns 250 Ml) 4 mg in 250 mls @ 7.5 mls/hr IV TITR [facility]; Protocol Last Titration: 03/12/19 04:15 Dose: 0 mcg/min, 0 mls/hr Documented by: Fentanyl Citrate (Fentanyl Drip Premix) 2,000 mcg in 100 mls @ 6.804 mls/hr IV TITR [facility]; Protocol Last Titration: 03/11/19 19:43 Dose: 0 mcg/kg/hr, 0 mls/hr Documented by: Ceftriaxone Sodium (Rocephin/Ns 2 Gm/100 Ml) 2 gm in 100 mls @ 200 mls/hr IV Q12HR [facility]; Protocol Last Infusion: 03/11/19 22:58 Dose: Infused Documented by: Metronidazole (Flagyl 500 Mg/100 Ml) 500 mg in 100 mls @ 100 mls/hr IV Q8HR [facility]; Protocol Last Infusion: 03/12/19 06:01 Dose: Infused Documented by: Sodium Bicarbonate 150 meq/ (Dextrose) 1,150 mls @ 100 mls/hr IV DIRECT [facility] Sodium Chloride (Nacl 0.9%) 100 mls @ 999 mls/hr IV [facility] PRN PRN Reason: Hypotension Insulin Human Lispro (Humalog) 0 unit SUB-Q Q6HR [facility]; Protocol Last Admin: 03/12/19 06:01 Dose: Not Given Documented by: Multi-Ingred Cream/Lotion/Oil/Oint (Artificial Tears Ophth Oint) 1 applic OU Q4HR PRN PRN Reason: Dry Eye(s) Ondansetron HCl (Zofran) 4 mg IV Q8H PRN PRN Reason: Nausea And Vomiting Simple Syrup (Simple Syrup) 15 ml FEEDTUBE PRN PRN PRN Reason: Hypoglycemia Simple Syrup (Simple Syrup) 30 ml FEEDTUBE PRN PRN PRN Reason: Hypoglycemia Sodium Bicarbonate (Sodium Bicarbonate) 325 mg FEEDTUBE PRN PRN PRN Reason: For Clogged Feeding Tube Sodium Chloride (Sodium Chloride Flush Syringe 10 Ml) 10 ml IV BID [facility] Last Admin: 03/12/19 10:00 Dose: 10 ml Documented by: Sodium Chloride (Sodium Chloride Flush Syringe 10 Ml) 10 ml IV PRN PRN PRN Reason: LINE FLUSH Review of Systems ROS unobtainable: due to endotracheal tube Exam - Constitutional Vitals: Temp Pulse Resp BP Pulse Ox 38.7 F L 81 24 83/48 100 03/12/19 08:00 03/12/19 16:12 03/12/19 12:45 03/12/19 12:45 03/12/19 16:12 General appearance: Present: other (intubated) - Neck Neck: Present: supple - Respiratory Respiratory effort: other (mechanically ventilated) - Cardiovascular Heart rate: 76 - Extremities Extremities: no ischemia - Abdominal General gastrointestinal: Present: soft, non-distended - Integumentary Integumentary: Present: warm. Absent: erythema Results - Labs CBC & Chem 7: 03/12/19 05:06 03/12/19 07:19 Labs: Abnormal lab results 03/11/19 03/11/19 03/11/19 Range/Units 00:50 18:36 23:45 RBC (3.65-5.03) M/mm3 Hgb (11.8-15.2) gm/dl Hct (35.5-45.6) % MCV (84-94) fl RDW (13.2-15.2) % Plt Count (140-440) K/mm3 Seg Neuts % (Manual) (40.0-70.0) % Monocytes % (Manual) (0.0-7.3) % Seg Neutrophils # Man (1.8-7.7) K/mm3 Monocytes # (Manual) (0.0-0.8) K/mm3 POC ABG pH (7.35-7.45) Potassium (3.6-5.0) mmol/L Carbon Dioxide (22-30) mmol/L BUN (9-20) mg/dL Creatinine (0.8-1.5) mg/dL Glucose (75-100) mg/dL POC Glucose 126 H 137 H (70-105) Calcium (8.4-10.2) mg/dL Total Bilirubin (0.1-1.2) mg/dL AST (5-40) units/L ALT (7-56) units/L Total Protein (6.3-8.2) g/dL Albumin (3.9-5) g/dL Cholesterol < 4 L (50-199) mg/dL LDL Cholesterol Direct 4 L (50-130) mg/dL HDL Cholesterol < 3 L (40-59) mg/dL 03/12/19 03/12/19 03/12/19 Range/Units 04:25 05:06 05:06 RBC 2.24 L (3.65-5.03) M/mm3 Hgb 7.2 L (11.8-15.2) gm/dl Hct 21.9 L (35.5-45.6) % MCV 98 H (84-94) fl RDW 18.3 H (13.2-15.2) % Plt Count 38 L (140-440) K/mm3 Seg Neuts % (Manual) 4.0 L (40.0-70.0) % Monocytes % (Manual) 69.0 H (0.0-7.3) % Seg Neutrophils # Man 0.3 L (1.8-7.7) K/mm3 Monocytes # (Manual) 4.9 H (0.0-0.8) K/mm3 POC ABG pH 7.320 L (7.35-7.45) Potassium 6.6 H* D (3.6-5.0) mmol/L Carbon Dioxide 17 L (22-30) mmol/L BUN 66 H (9-20) mg/dL Creatinine 5.6 H D (0.8-1.5) mg/dL Glucose 149 H (75-100) mg/dL POC Glucose (70-105) Calcium 6.5 L (8.4-10.2) mg/dL Total Bilirubin 1.90 H (0.1-1.2) mg/dL AST 782 H (5-40) units/L ALT 382 H (7-56) units/L Total Protein 5.7 L (6.3-8.2) g/dL Albumin 2.7 L (3.9-5) g/dL Cholesterol (50-199) mg/dL LDL Cholesterol Direct (50-130) mg/dL HDL Cholesterol (40-59) mg/dL 03/12/19 03/12/19 Range/Units 05:57 07:19 RBC (3.65-5.03) M/mm3 Hgb (11.8-15.2) gm/dl Hct (35.5-45.6) % MCV (84-94) fl RDW (13.2-15.2) % Plt Count (140-440) K/mm3 Seg Neuts % (Manual) (40.0-70.0) % Monocytes % (Manual) (0.0-7.3) % Seg Neutrophils # Man (1.8-7.7) K/mm3 Monocytes # (Manual) (0.0-0.8) K/mm3 POC ABG pH (7.35-7.45) Potassium 6.6 H* (3.6-5.0) mmol/L Carbon Dioxide (22-30) mmol/L BUN (9-20) mg/dL Creatinine (0.8-1.5) mg/dL Glucose (75-100) mg/dL POC Glucose 165 H (70-105) Calcium (8.4-10.2) mg/dL Total Bilirubin (0.1-1.2) mg/dL AST (5-40) units/L ALT (7-56) units/L Total Protein (6.3-8.2) g/dL Albumin (3.9-5) g/dL Cholesterol (50-199) mg/dL LDL Cholesterol Direct (50-130) mg/dL HDL Cholesterol (40-59) mg/dL Assessment and Plan The patient is a 54-year-old male with a history of multiple medical illnesses and a witnessed cardiac arrest now with acute on chronic renal failure and hyperkalemia and need of emergent hemodialysis. He requires a Vas-Cath for access. I discussed the procedure with his daughter including the risk and benefits. She is expresses understanding and agrees with the plan. Will place a right femoral Vas-Cath at the bedside in the ICU.
--- NOTE | 2019-03-12 17:40 | Operative Report ---
Operative Report Operative Report: Date of Procedure: 03/12/2019 Pre-operative Diagnosis: Acute on Chronic Renal Failure With Hyperkalemia Post-operative Diagnosis: Same Procedure(s): 1. Ultrasound-Guided Access Right Common Femoral Vein 2. Placement of 30 cm Trialysis Vascath Surgeon: Ranjith Joiner M.D. Controls Project Engineer: None Anesthesia: 1% Lidocaine Plain EBL: Minimal Counts: Correct Complications: None Condition: Critical but Stable Findings: Successful placement of right femoral Vas-Cath, all ports easily aspirated and flushed. Specimen: None Indication: The patient is a 54-year-old male with a history of chronic renal failure who presented to the hospital with complaints of generalized weakness associated with nausea,vomiting, diarrhea, and a productive cough that had been going on for approximately 6 weeks and worsened over the past 48 hours. He had a witnessed cardiac arrest in the emergency department visit to be resuscitated however he now has acute on chronic renal insufficiency with hyperkalemia and is in need for emergent dialysis. A discussion was had with his daughter who was given the risks, benefits, and alternative procedures Vas-Cath placement and she consented to the procedure. Description of Procedure: The procedure was performed at the bedside in the intensive care unit. Ultrasound was used to identify and confirm patency of the right common femoral vein. After this was done the patient's right groin was prepped and draped in normal sterile fashion. 1% lidocaine was used to anesthetize the skin and soft tissue overlying the vein and then an access needle was used ultrasound guidance to enter the anterior surface of the right femoral vein. A 0.035 J-wire was advanced to the wire and into the vein and the tract was serially dilated and the Vas-Cath was inserted by Seldinger technique. Guidewire was removed and all ports were aspirated and flushed with the appropriate amount of heparin. The catheter was then sutured in place with 3-0 Ethilon and then dressed sterilely. The patient tolerated the procedure well. All sponge, needle, and instrument counts were correct. The patient remained in the ICU in critical but stable condition.
[2019-03-12] MEDS ORDERED: XYLOCAINE 2% INFILTRATI ONE (21:11)
[2019-03-12] MEDS ORDERED: CATHFLO IV ONE (21:23)
[2019-03-13] MEDS: LEVOPHED DRIP 4 MG/NS 250 ML 4 MG/250 ML BAG IV SCH ×4 (00:13→23:53)
[2019-03-13] MEDS: HumaLOG SUB-Q SCH ×5 (00:14→23:47)
[2019-03-13] MEDS: SODIUM CHLORIDE FLUSH SYRINGE 10 ML IV SCH ×3 (00:15→21:02)
[2019-03-13 02:27] LABS: Hepatitis B Surface Antigen Non-Reactive (Negative); Hepatitis C Virus Antibody Non-Reactive (NonReactive)
[2019-03-13] MEDS: SODIUM BICARBONATE IV SCH (04:18)
[2019-03-13] MEDS: D5W IV SCH (04:18)
[2019-03-13] MEDS: FLAGYL 500 MG/100 ML 500 MG/100 ML BAG IV SCH (05:47)
--- NOTE | 2019-03-13 07:05 | Progress Note ---
Assessment and Plan Critical care time 32 minutes - Patient Problems (1) Acute metabolic encephalopathy Current Visit: Yes Status: Acute Plan to address problem: Multifactorial Sepsis Possible anoxic encephalopathy (2) Acute respiratory failure Current Visit: Yes Status: Acute Qualifiers: Respiratory failure complication: hypoxia Qualified Code(s): J96.01 - Acute respiratory failure with hypoxia Plan to address problem: S/p cardiac arrest Cont vent support Anoxic Encepahlopathy?? (3) Acute renal failure Current Visit: Yes Status: Acute Qualifiers: Acute renal failure type: with acute tubular necrosis Qualified Code(s): N17.0 - Acute kidney failure with tubular necrosis Plan to address problem: Cont IV Fluids Nephrology following BUN/Cr 52/5.5 HD as necessary (4) Cardiopulmonary arrest with successful resuscitation Current Visit: Yes Status: Acute Plan to address problem: S/p cardiac arrest in ED with ROSC (5) Hypotension Current Visit: Yes Status: Acute Qualifiers: Hypotension type: unspecified hypotension type Qualified Code(s): I95.9 - Hypotension, unspecified Plan to address problem: Sec to sepsis Cont IV Levophed (6) T2DM (type 2 diabetes mellitus) Current Visit: Yes Status: Acute Qualifiers: Diabetes mellitus meterman insulin use: unspecified meterman insulin use status Plan to address problem: Coverage for now (7) CAD (coronary artery disease) Current Visit: Yes Status: Chronic Qualifiers: Coronary Disease-Associated Artery/Lesion type: [place] artery [place] vs. transplanted heart: [place] heart (8) Sepsis Current Visit: Yes Status: Acute Qualifiers: Sepsis type: Streptococcus group B Qualified Code(s): A40.1 - Sepsis due to streptococcus, group B Plan to address problem: Strep bacteremia On Ceftriaxone and IV Clindamycin (9) DVT prophylaxis Current Visit: Yes Status: Acute Plan to address problem: On Heparin and GI prophylaxis Subjective Date of service: 03/13/19 Principal diagnosis: severe sepsis Interval history: 54-year-old man admitted history of hypertension, diabetes, chronic kidney disease, coronary artery disease was brought to the emergency room for evaluation of shortness of breath, generalized body aches. and daughter at bedside state that he's been sick for a month and a half. Also complaining of chills. She states that he had diarrhea for one month, got worse. + Decrease oral intake Chest x-ray was ordered in the emergency room, while the radiochemical technician was trying to get help to get the x-ray done, upon return to the room, the patient was not breathing. He was successfully resuscitated, intubated. He was started on vancomycin, Zosyn and levophed drip. Admitted for Acute resp failure s/p cardiac arresr and Septic shock. Same condition. Afebrile Overnight events noted Objective - Exam Narrative Exam: Intubated - Constitutional Vitals: Vital Signs - 12hr 03/12/19 03/12/19 03/12/19 19:15 19:16 19:19 Temperature Pulse Rate 81 80 81 Pulse Rate [ From Monitor] Respiratory 17 Rate Blood Pressure 119/46 109/52 122/39 O2 Sat by Pulse 100 96 Oximetry O2 Sat by Pulse Oximetry [ Throughout] 03/12/19 03/12/19 03/12/19 19:30 19:31 19:45 Temperature Pulse Rate 82 81 82 Pulse Rate [ From Monitor] Respiratory 19 20 Rate Blood Pressure 125/40 125/40 125/40 O2 Sat by Pulse 100 100 Oximetry O2 Sat by Pulse Oximetry [ Throughout] 03/12/19 03/12/19 03/12/19 20:00 20:01 20:15 Temperature Pulse Rate 82 84 83 Pulse Rate [ 84 From Monitor] Respiratory 18 16 Rate Blood Pressure 122/44 122/44 122/44 O2 Sat by Pulse 100 100 100 Oximetry O2 Sat by Pulse Oximetry [ Throughout] 03/12/19 03/12/19 03/12/19 20:30 20:31 20:45 Temperature 98.7 F Pulse Rate 85 85 90 Pulse Rate [ From Monitor] Respiratory 19 19 19 Rate Blood Pressure 116/48 116/48 116/48 O2 Sat by Pulse 99 100 Oximetry O2 Sat by Pulse 100 Oximetry [ Throughout] 03/12/19 03/12/19 03/12/19 21:01 21:15 21:31 Temperature Pulse Rate 87 87 89 Pulse Rate [ From Monitor] Respiratory 21 22 22 Rate Blood Pressure 117/48 117/48 109/56 O2 Sat by Pulse 100 100 98 Oximetry O2 Sat by Pulse Oximetry [ Throughout] 03/12/19 03/12/19 03/12/19 21:45 22:01 22:15 Temperature Pulse Rate 89 90 89 Pulse Rate [ From Monitor] Respiratory 23 22 Rate Blood Pressure 180/130 180/130 94/42 O2 Sat by Pulse 100 100 Oximetry O2 Sat by Pulse Oximetry [ Throughout] 03/12/19 03/12/19 03/12/19 22:30 22:45 23:00 Temperature Pulse Rate 89 88 88 Pulse Rate [ From Monitor] Respiratory 20 22 22 Rate Blood Pressure 82/49 82/49 74/43 O2 Sat by Pulse 100 99 99 Oximetry O2 Sat by Pulse Oximetry [ Throughout] 03/12/19 03/12/19 03/12/19 23:15 23:17 23:31 Temperature Pulse Rate 90 89 91 H Pulse Rate [ From Monitor] Respiratory 23 22 24 Rate Blood Pressure 80/46 110/48 97/40 O2 Sat by Pulse 98 99 100 Oximetry O2 Sat by Pulse Oximetry [ Throughout] 03/12/19 03/12/19 03/13/19 23:35 23:45 00:00 Temperature 100.6 F H Pulse Rate 89 88 Pulse Rate [ From Monitor] Respiratory 22 Rate Blood Pressure 110/83 102/47 O2 Sat by Pulse 100 100 100 Oximetry O2 Sat by Pulse Oximetry [ Throughout] 03/13/19 03/13/19 03/13/19 00:01 00:15 00:30 Temperature Pulse Rate 90 90 89 Pulse Rate [ From Monitor] Respiratory 22 21 21 Rate Blood Pressure 110/83 110/83 106/36 O2 Sat by Pulse 100 100 98 Oximetry O2 Sat by Pulse Oximetry [ Throughout] 03/13/19 03/13/19 03/13/19 00:45 01:00 01:15 Temperature Pulse Rate 89 92 H 88 Pulse Rate [ From Monitor] Respiratory 21 22 19 Rate Blood Pressure 103/46 103/46 109/51 O2 Sat by Pulse 100 100 100 Oximetry O2 Sat by Pulse Oximetry [ Throughout] 03/13/19 03/13/19 03/13/19 01:30 01:45 02:01 Temperature Pulse Rate 91 H 89 88 Pulse Rate [ From Monitor] Respiratory 20 19 17 Rate Blood Pressure 108/35 108/35 110/30 O2 Sat by Pulse 100 100 100 Oximetry O2 Sat by Pulse Oximetry [ Throughout] 03/13/19 03/13/19 03/13/19 02:15 02:30 02:45 Temperature Pulse Rate 85 88 86 Pulse Rate [ From Monitor] Respiratory 18 19 18 Rate Blood Pressure 110/30 125/32 O2 Sat by Pulse 99 100 100 Oximetry O2 Sat by Pulse Oximetry [ Throughout] 03/13/19 03/13/19 03/13/19 03:01 03:15 03:30 Temperature Pulse Rate 93 H 95 H 88 Pulse Rate [ From Monitor] Respiratory 18 18 18 Rate Blood Pressure 118/22 118/22 103/37 O2 Sat by Pulse 97 99 100 Oximetry O2 Sat by Pulse Oximetry [ Throughout] 03/13/19 03/13/19 03/13/19 03:45 03:54 04:00 Temperature 101.0 F H Pulse Rate 88 89 87 Pulse Rate [ 88 From Monitor] Respiratory 18 18 Rate Blood Pressure 113/30 113/30 95/45 O2 Sat by Pulse 100 99 99 Oximetry O2 Sat by Pulse Oximetry [ Throughout] 03/13/19 03/13/19 03/13/19 04:15 04:30 04:45 Temperature Pulse Rate 88 88 87 Pulse Rate [ From Monitor] Respiratory 18 19 18 Rate Blood Pressure 94/41 96/47 96/47 O2 Sat by Pulse 99 100 100 Oximetry O2 Sat by Pulse Oximetry [ Throughout] 03/13/19 03/13/19 03/13/19 05:00 05:15 05:30 Temperature Pulse Rate 87 88 89 Pulse Rate [ From Monitor] Respiratory 15 18 19 Rate Blood Pressure 100/65 100/65 109/35 O2 Sat by Pulse 100 100 99 Oximetry O2 Sat by Pulse Oximetry [ Throughout] 03/13/19 03/13/19 03/13/19 05:45 06:00 06:15 Temperature Pulse Rate 89 88 88 Pulse Rate [ From Monitor] Respiratory 19 18 17 Rate Blood Pressure 109/35 85/40 84/39 O2 Sat by Pulse 99 100 98 Oximetry O2 Sat by Pulse Oximetry [ Throughout] 03/13/19 03/13/19 06:30 06:45 Temperature Pulse Rate 88 87 Pulse Rate [ From Monitor] Respiratory 17 18 Rate Blood Pressure 100/22 89/32 O2 Sat by Pulse 98 99 Oximetry O2 Sat by Pulse Oximetry [ Throughout] General appearance: Present: mild distress, well-nourished - EENT Eyes: PERRL, EOM intact ENT: hearing intact, clear oral mucosa Ears: bilateral: normal - Neck Neck: supple, normal ROM - Respiratory Respiratory effort: normal Respiratory: bilateral: CTA - Breasts Breasts: normal - Cardiovascular Heart rate: 78 Rhythm: regular Heart Sounds: Present: S1 & S2. Absent: gallop, rub Extremities: pulses intact, No edema, normal color, Full ROM - Gastrointestinal General gastrointestinal: Present: soft, non-tender, non-distended, normal bowel sounds - Genitourinary Male genitourinary: normal - Integumentary Integumentary: clear, warm, dry - Musculoskeletal Musculoskeletal: generalized weakness - Neurologic Neurologic: other (Intubated) - Allied health notes Allied health notes reviewed: nursing, case management - Labs CBC & Chem 7: 03/14/19 13:43 03/13/19 09:11 Labs: Abnormal lab results 03/12/19 03/12/19 03/12/19 Range/Units 07:19 15:24 18:55 Potassium 6.6 H* (3.6-5.0) mmol/L POC Glucose 167 H 212 H (70-105) 03/12/19 03/13/19 Range/Units 23:45 05:37 Potassium (3.6-5.0) mmol/L POC Glucose 197 H 250 H (70-105)
--- NOTE | 2019-03-13 07:55 | Consultation ---
History of Present Illness - Reason for Consult Consult date: 03/13/19 Past History Past Medical History: CAD, diabetes, hypertension, other (as per HPI) Past Surgical History: No surgical history Social history: no significant social history, other (stopped alcohol use 3 months ago) Family history: no significant family history Medications and Allergies Allergies Allergy/AdvReac Type Severity Reaction Status Date / Time No Known Allergies Allergy Verified 03/10/19 17:37 Home Medications Medication Instructions Recorded Confirmed Last Taken Type Allopurinol [Zyloprim] 300 mg PO DAILY 03/10/19 03/10/19 Unknown History Aspirin [Adult Aspirin] 81 mg PO DAILY 03/10/19 03/10/19 Unknown History Atorvastatin [Lipitor Tab] 80 mg PO DAILY 03/10/19 03/10/19 Unknown History Carvedilol [Coreg] 12.5 mg PO BID 03/10/19 03/10/19 Unknown History Clopidogrel [Plavix] 75 mg PO DAILY 03/10/19 03/10/19 Unknown History Gabapentin [Neurontin] 300 mg PO BID 03/10/19 03/10/19 Unknown History Insulin Lispro Protamin/Lispro 33 unit SQ BID 03/10/19 03/10/19 Unknown History [Humalog Mix 75-25 Vial] Lisinopril [Zestril TAB] 10 mg PO DAILY 03/10/19 03/10/19 Unknown History Pantoprazole [Protonix] 40 mg PO DAILY 03/10/19 03/10/19 Unknown History Sitagliptin Phosphate [Januvia] 50 mg PO DAILY 03/10/19 03/10/19 Unknown History Active Meds: Active Medications Acetaminophen (Tylenol) 650 mg PO Q4H PRN PRN Reason: Pain MILD(1-3)/Fever >100.5/[place] Acetaminophen (Tylenol) 650 mg IN Q4H PRN PRN Reason: Pain MILD(1-3)/Fever >100.5/[place] Last Admin: 03/12/19 04:53 Dose: 650 mg Documented by: Lipase/Protease/Amylase (Alejandra Manzo 10,500 Unit) 1 each FEEDTUBE PRN PRN PRN Reason: For Clogged Feeding Tube Dextrose (D50w (25gm) Syringe) 50 ml IV PRN PRN PRN Reason: Hypoglycemia Famotidine (Pepcid) 20 mg IV DAILY [facility] Last Admin: 03/12/19 10:00 Dose: 20 mg Documented by: Fentanyl (Sublimaze) 50 mcg IV Q10MIN PRN PRN Reason: ANALGESIA Hydrophilic Ointment (Vaseline Lip Therapy) 1 applic TP Q2HR PRN PRN Reason: Dry Lips Propofol (Diprivan 10 Mg/Ml) 1,000 mg in 100 mls @ 4.082 mls/hr IV TITR [facility]; Protocol Last Titration: 03/11/19 14:30 Dose: Infused Documented by: Norepinephrine (Levophed Drip 4 Mg/Ns 250 Ml) 4 mg in 250 mls @ 7.5 mls/hr IV TITR [facility]; Protocol Last Admin: 03/13/19 05:50 Dose: 4 mcg/min, 15 mls/hr Documented by: Fentanyl Citrate (Fentanyl Drip Premix) 2,000 mcg in 100 mls @ 6.804 mls/hr IV TITR [facility]; Protocol Last Titration: 03/11/19 19:43 Dose: 0 mcg/kg/hr, 0 mls/hr Documented by: Ceftriaxone Sodium (Rocephin/Ns 2 Gm/100 Ml) 2 gm in 100 mls @ 200 mls/hr IV Q12HR [facility]; Protocol Last Admin: 03/12/19 22:10 Dose: 200 mls/hr Documented by: Metronidazole (Flagyl 500 Mg/100 Ml) 500 mg in 100 mls @ 100 mls/hr IV Q8HR [facility]; Protocol Last Admin: 03/13/19 05:47 Dose: 100 mls/hr Documented by: Sodium Bicarbonate 150 meq/ (Dextrose) 1,150 mls @ 100 mls/hr IV DIRECT [facility] Last Admin: 03/13/19 04:18 Dose: 100 mls/hr Documented by: Sodium Chloride (Nacl 0.9%) 100 mls @ 999 mls/hr IV [facility] PRN PRN Reason: Hypotension Insulin Human Lispro (Humalog) 0 unit SUB-Q Q6HR [facility]; Protocol Last Admin: 03/13/19 05:47 Dose: 3 unit Documented by: Multi-Ingred Cream/Lotion/Oil/Oint (Artificial Tears Ophth Oint) 1 applic OU Q4HR PRN PRN Reason: Dry Eye(s) Ondansetron HCl (Zofran) 4 mg IV Q8H PRN PRN Reason: Nausea And Vomiting Simple Syrup (Simple Syrup) 15 ml FEEDTUBE PRN PRN PRN Reason: Hypoglycemia Simple Syrup (Simple Syrup) 30 ml FEEDTUBE PRN PRN PRN Reason: Hypoglycemia Sodium Bicarbonate (Sodium Bicarbonate) 325 mg FEEDTUBE PRN PRN PRN Reason: For Clogged Feeding Tube Sodium Chloride (Sodium Chloride Flush Syringe 10 Ml) 10 ml IV BID [facility] Last Admin: 03/13/19 00:15 Dose: Not Given Documented by: Sodium Chloride (Sodium Chloride Flush Syringe 10 Ml) 10 ml IV PRN PRN PRN Reason: LINE FLUSH Physical Examination - Constitutional Vitals: Vital Signs Temp Pulse Resp BP Pulse Ox 101.0 F H 87 18 89/32 99 03/13/19 04:00 03/13/19 06:45 03/13/19 06:45 03/13/19 06:45 03/13/19 06:45 Temperature -Last 24 Hours Temperature 101.0 F Temperature 100.6 F Temperature 98.7 F Temperature 98.7 F Temperature 98.7 F Temperature 98.5 F Temperature 38.7 F Results - Labs CBC & Chem 7: 03/12/19 05:06 03/12/19 07:19 Labs: Abnormal lab results 03/12/19 03/12/19 03/12/19 Range/Units 07:19 15:24 18:55 Potassium 6.6 H* (3.6-5.0) mmol/L POC Glucose 167 H 212 H (70-105) 03/12/19 03/13/19 Range/Units 23:45 05:37 Potassium (3.6-5.0) mmol/L POC Glucose 197 H 250 H (70-105)
--- NOTE | 2019-03-13 08:02 | Progress Note ---
Assessment and Plan Cultures: Blood culture 03/10/2019 Group-A Strep 2 of 4 bottles Tracheal asp 03/10/2019 poor specimen Blood culture 03/12/2019 no growth today Assessment: 54 y/o male with history of diabetes, hypertension, chronic kidney disease, coronary artery disease admitted on 03/10/2019 due to a week history of facial/mouth pain (?dental pain) associated with generalized weakness, cold sensation, cough with dean sputum production and body aches, 48 hour-history of sore throat, in the ED patient went into PEA arrest s/p CPR: 1) Severe Sepsis with PEA arrest and transient shock post arrest: still high fever, bandemia. Now on levophed. Etiology likely due to GAS bacteremia. UA with 24 wbc with no LE ? mild UTI (does not explain severity of sepsis). Influenza rapid negative. CXR and CT chest no consolidations. 2) Invasive Group-A Strep bacteremia/toxic shock syndrome: source unclear ? ?tonsillopharingitis, ?dental abscess, ?meningitis, early aspiration pneumonia. Blood culture 03/10/2019 Group-A Strep [address] face showed a small right mandibular premolar abscess, poor dentition and chronic sinusitis. 3) Acute encephalopathy: post arrest +/- due to infection ? meningitis ? ischemic brain injury. CT head some indistinctness and loss of dean-white matter differentiation and indistinct visualization of the basal ganglia. This is nonspecific finding but may be seen with diffuse hypoxic ischemic brain injury. 4) Acute respiratory failure: now intubated. CT chest without contrast shows pericardial effusion measuring up to 1.4 cm in transverse diameter, posterior atelectasis both lungs. Minimal pleural fluid collection. 5) Thrombocytopenia: from sepsis 6) ISMAEL on CKD: renally adjusted meds. Now on HD had a fem TLC vas cath Recommendations: - start clindamycin 900 mg IV q8h and continue ceftriaxone for Group-A Strep bacteremia/toxic shock syndrome - obtain lumbar puncture-send CSF for Gram, culture, cell count, diff, VRDL, crypto - pending. Discussed with Dr Orourke - obtain TTE r/o endocarditis - pending - neuro consult - droplet precautions - stop vancomycin - continue flagyl for now for colitis ? - if diarrhea collect stool for C diff - doubt C diff - femoral vascath Will follow. Marietta Ahuja MD Infectious Diseases [employer] [facility] ([facility]) M [phone] O [phone] Subjective Date of service: 03/13/19 Principal diagnosis: severe sepsis Interval history: Patient remains intubated, now on pressors, no sedation, unresponsive. High grade fever 101. ROS unable to obtain Objective - Exam Narrative Exam: General: on sedative intubated in NAD Eyes: anicteric sclerae, moist conjunctivae; no lid-lag; PERRLA HENT: Atraumatic; oropharynx ETT with creamy thich sputum Neck: Trachea midline; ryan swollen neck vs obese body habitus Lungs: loud ryan rhonchi CV: RRR no murmur Abdomen: Soft, non-tender; obese Extremities: no edema, cyanosis Skin: no rash, ulcers or subcutaneous nodules Psych: unresponsive no agitated. Neuro: unresponsive no agitated - Constitutional Vitals: Vital Signs Temp Pulse Resp BP Pulse Ox 101.0 F H 87 18 89/32 99 03/13/19 04:00 03/13/19 06:45 03/13/19 06:45 03/13/19 06:45 03/13/19 06:45 Temperature -Last 24 Hours Temperature 101.0 F Temperature 100.6 F Temperature 98.7 F Temperature 98.7 F Temperature 98.7 F Temperature 98.5 F Temperature 38.7 F - Labs CBC & Chem 7: 03/12/19 05:06 03/12/19 07:19 Labs: Abnormal lab results 03/12/19 03/12/19 03/12/19 Range/Units 07:19 15:24 18:55 Potassium 6.6 H* (3.6-5.0) mmol/L POC Glucose 167 H 212 H (70-105) 03/12/19 03/13/19 Range/Units 23:45 05:37 Potassium (3.6-5.0) mmol/L POC Glucose 197 H 250 H (70-105)
[2019-03-13] MEDS: CLEOCIN 900 MG/50 mL 900 MG/50 ML BAG IV SCH ×2 (09:00→17:09)
--- NOTE | 2019-03-13 09:23 | Progress Note ---
Assessment and Plan - Patient Problems (1) Acute on chronic renal failure Current Visit: Yes Status: Acute Plan to address problem: Likely secondary to acute tubular necrosis in the setting of cardiac arrest, possible sepsis. Patient remains anuric. Will place patient on second session of HD today, 2.5 hrs, with goal UF 500cc-1L as tolerated. Will add renal US as well as complement levels and ANCA studies. UA noted for microscopic hematuria/proteinuria, so will need to r/o GN etiologies. Pending AM renal function labs. (2) Hyperkalemia Current Visit: Yes Status: Acute Plan to address problem: Follow up on repeat labs that are pending this am. Run on 2K dialysate bath (3) Cardiopulmonary arrest with successful resuscitation Current Visit: Yes Status: Acute Plan to address problem: Return of spontaneous circulation in the emergency room about 2 doses of epinephrine. Patient is on Levothroid at this time and cardiology evaluation has been reviewed and noted. Patient also had a repeat echocardiogram done and reviewed with EF 40-45% and impaired relaxation noted. We'll follow up with further recommendations from cardiology standpoint. (4) Sepsis Current Visit: Yes Status: Acute Qualifiers: Qualified Code(s): A40.1 - Sepsis due to streptococcus, group B Plan to address problem: Streptococcal bacteremia noted on initial blood cultures. Patient is on the antibiotics at this time per infectious disease recommendations. Please ensure that antibiotics are dosed appropriately for his decreased creatinine clearance and renal function. R/O meningitis per ID recommendations/note. (5) Metabolic acidosis Current Visit: Yes Status: Acute Plan to address problem: Will address with hemodialysis. Once started on hemodialysis, would favor that we can discontinue the sodium bicarbonate drip. His ABG this am showed adequate improvement. (6) Hypotension Current Visit: Yes Status: Acute Plan to address problem: Patient continues on appropriate pressor support. Agree with holding any antihypertensive medication at this time given his hemodynamic instability. We'll continue to monitor closely. (7) Type 2 diabetes mellitus with diabetic chronic kidney disease Current Visit: Yes Status: Acute Plan to address problem: diabetes management per primary attending. Subjective Date of service: 03/13/19 Principal diagnosis: severe sepsis Interval history: Patient was dialyzed yesterday. Tolerated, VSS upon end of the session. He remains on pressor support with levophed at 8mcg/kg/min. He is also on bicarbonate gtt @ 100 cc/hr. Remains intubated, unresponsive. He is on contact/droplet precautions. ID evaluation noted. Objective - Vital Signs Vital signs: Vital Signs - 12hr 03/12/19 03/12/19 03/12/19 21:31 21:45 22:01 Temperature Pulse Rate 89 89 90 Pulse Rate [ From Monitor] Respiratory 22 23 Rate Blood Pressure 109/56 180/130 180/130 O2 Sat by Pulse 98 100 Oximetry 03/12/19 03/12/19 03/12/19 22:15 22:30 22:45 Temperature Pulse Rate 89 89 88 Pulse Rate [ From Monitor] Respiratory 22 20 22 Rate Blood Pressure 94/42 82/49 82/49 O2 Sat by Pulse 100 100 99 Oximetry 03/12/19 03/12/19 03/12/19 23:00 23:15 23:17 Temperature Pulse Rate 88 90 89 Pulse Rate [ From Monitor] Respiratory 22 23 22 Rate Blood Pressure 74/43 80/46 110/48 O2 Sat by Pulse 99 98 99 Oximetry 03/12/19 03/12/19 03/12/19 23:31 23:35 23:45 Temperature Pulse Rate 91 H 89 88 Pulse Rate [ From Monitor] Respiratory 24 22 Rate Blood Pressure 97/40 110/83 102/47 O2 Sat by Pulse 100 100 100 Oximetry 03/13/19 03/13/19 03/13/19 00:00 00:01 00:15 Temperature 100.6 F H Pulse Rate 90 90 Pulse Rate [ From Monitor] Respiratory 22 21 Rate Blood Pressure 110/83 110/83 O2 Sat by Pulse 100 100 100 Oximetry 03/13/19 03/13/19 03/13/19 00:30 00:45 01:00 Temperature Pulse Rate 89 89 92 H Pulse Rate [ From Monitor] Respiratory 21 21 22 Rate Blood Pressure 106/36 103/46 103/46 O2 Sat by Pulse 98 100 100 Oximetry 03/13/19 03/13/19 03/13/19 01:15 01:30 01:45 Temperature Pulse Rate 88 91 H 89 Pulse Rate [ From Monitor] Respiratory 19 20 19 Rate Blood Pressure 109/51 108/35 108/35 O2 Sat by Pulse 100 100 100 Oximetry 03/13/19 03/13/19 03/13/19 02:01 02:15 02:30 Temperature Pulse Rate 88 85 88 Pulse Rate [ From Monitor] Respiratory 17 18 19 Rate Blood Pressure 110/30 110/30 O2 Sat by Pulse 100 99 100 Oximetry 03/13/19 03/13/19 03/13/19 02:45 03:01 03:15 Temperature Pulse Rate 86 93 H 95 H Pulse Rate [ From Monitor] Respiratory 18 18 18 Rate Blood Pressure 125/32 118/22 118/22 O2 Sat by Pulse 100 97 99 Oximetry 03/13/19 03/13/19 03/13/19 03:30 03:45 03:54 Temperature Pulse Rate 88 88 89 Pulse Rate [ From Monitor] Respiratory 18 18 Rate Blood Pressure 103/37 113/30 113/30 O2 Sat by Pulse 100 100 99 Oximetry 03/13/19 03/13/19 03/13/19 04:00 04:15 04:30 Temperature 101.0 F H Pulse Rate 87 88 88 Pulse Rate [ 88 From Monitor] Respiratory 18 19 Rate Blood Pressure 95/45 94/41 96/47 O2 Sat by Pulse 99 99 100 Oximetry 03/13/19 03/13/19 03/13/19 04:45 05:00 05:15 Temperature Pulse Rate 87 87 88 Pulse Rate [ From Monitor] Respiratory 15 18 Rate Blood Pressure 96/47 100/65 100/65 O2 Sat by Pulse 100 100 100 Oximetry 03/13/19 03/13/19 03/13/19 05:30 05:45 06:00 Temperature Pulse Rate 89 89 88 Pulse Rate [ From Monitor] Respiratory 18 Rate Blood Pressure 109/35 109/35 85/40 O2 Sat by Pulse 99 99 100 Oximetry 03/13/19 03/13/19 03/13/19 06:15 06:30 06:45 Temperature Pulse Rate 88 88 87 Pulse Rate [ From Monitor] Respiratory 17 17 18 Rate Blood Pressure 84/39 100/22 89/32 O2 Sat by Pulse 98 98 99 Oximetry 03/13/19 03/13/19 03/13/19 07:00 07:15 07:30 Temperature Pulse Rate 87 87 86 Pulse Rate [ From Monitor] Respiratory 18 23 20 Rate Blood Pressure 89/27 95/39 104/29 O2 Sat by Pulse 99 98 98 Oximetry 03/13/19 03/13/19 03/13/19 07:42 07:45 08:00 Temperature 100.6 F H Pulse Rate 87 88 89 Pulse Rate [ 89 From Monitor] Respiratory 19 19 Rate Blood Pressure 104/29 104/29 97/44 O2 Sat by Pulse 99 99 99 Oximetry 03/13/19 03/13/19 03/13/19 08:15 08:30 08:45 Temperature Pulse Rate 89 89 89 Pulse Rate [ From Monitor] Respiratory 19 18 18 Rate Blood Pressure 94/35 103/28 96/32 O2 Sat by Pulse 99 99 99 Oximetry - General Appearance General appearance: appears stated age, chronically ill, intubated, comatose EENT: ATNC Neck: no JVD Respiratory: Present: Wheezes, Decreased Breath Sounds Cardiology: regular, S1S2 Gastrointestinal: normal Integumentary: no rash, warm and dry Neurologic: other (unresponsive ) Musculoskeletal: other (+edema ) - Lab 03/12/19 05:06 03/12/19 07:19 Most recent lab results Calcium 6.5 mg/dL (8.4-10.2) L 03/12/19 05:06 - Imaging Chest x-ray: report reviewed - Allied health notes Allied health notes reviewed: nursing Medications & Allergies - Medications Allergies/Adverse Reactions: Allergies No Known Allergies Allergy (Verified 03/10/19 17:37) Home Medications: Home Medications Medication Instructions Recorded Confirmed Last Taken Type Allopurinol [Zyloprim] 300 mg PO DAILY 03/10/19 03/10/19 Unknown History Aspirin [Adult Aspirin] 81 mg PO DAILY 03/10/19 03/10/19 Unknown History Atorvastatin [Lipitor Tab] 80 mg PO DAILY 03/10/19 03/10/19 Unknown History Carvedilol [Coreg] 12.5 mg PO BID 03/10/19 03/10/19 Unknown History Clopidogrel [Plavix] 75 mg PO DAILY 03/10/19 03/10/19 Unknown History Gabapentin [Neurontin] 300 mg PO BID 03/10/19 03/10/19 Unknown History Insulin Lispro Protamin/Lispro 33 unit SQ BID 03/10/19 03/10/19 Unknown History [Humalog Mix 75-25 Vial] Lisinopril [Zestril TAB] 10 mg PO DAILY 03/10/19 03/10/19 Unknown History Pantoprazole [Protonix] 40 mg PO DAILY 03/10/19 03/10/19 Unknown History Sitagliptin Phosphate [Januvia] 50 mg PO DAILY 03/10/19 03/10/19 Unknown History Active Medications: Generic Name Dose Route Start Last Admin Trade Name Freq PRN Reason Stop Dose Admin Acetaminophen 650 mg 03/11/19 00:40 Tylenol PO Q4H PRN Pain MILD(1-3)/Fever >100.5/[place] Acetaminophen 650 mg 03/11/19 00:40 03/12/19 04:53 Tylenol [place] 650 mg Q4H PRN Administration Pain MILD(1-3)/Fever >100.5/[place] Lipase/Protease/Amylase 1 each 03/12/19 11:58 Pancreaze 10,500 Unit FEEDTUBE PRN PRN For Clogged Feeding Tube Dextrose 50 ml 03/11/19 00:44 D50w (25gm) Syringe IV PRN PRN Hypoglycemia Famotidine 20 mg 03/12/19 10:00 03/12/19 10:00 Pepcid IV 20 mg DAILY ROXANNE Administration Fentanyl 50 mcg 03/11/19 07:50 Sublimaze IV Q10MIN PRN ANALGESIA Hydrophilic Ointment 1 applic 03/10/19 19:50 Vaseline Lip Therapy TP Q2HR PRN Dry Lips Propofol 1,000 mg in 100 mls @ 4.082 mls/hr 03/10/19 20:00 03/11/19 14:30 Diprivan 10 Mg/Ml IV Infused TITR ROXANNE Titration Protocol 5 MCG/KG/MIN Norepinephrine 4 mg in 250 mls @ 7.5 mls/hr 03/10/19 21:00 03/13/19 07:30 Levophed Drip 4 Mg/Ns 250 Ml IV 8 mcg/min TITR ROXANNE 30 mls/hr Titration Protocol 2 MCG/MIN Fentanyl Citrate 2,000 mcg in 100 mls @ 6.804 mls/hr 03/11/19 08:00 03/11/19 19:43 Fentanyl Drip Premix IV 0 mcg/kg/hr TITR ROXANNE 0 mls/hr Titration Protocol 1 MCG/KG/HR Ceftriaxone Sodium 2 gm in 100 mls @ 200 mls/hr 03/11/19 13:00 03/12/19 23:00 Rocephin/Ns 2 Gm/100 Ml IV Infused Q12HR ROXANNE Infusion Protocol Metronidazole 500 mg in 100 mls @ 100 mls/hr 03/11/19 14:00 03/13/19 06:47 Flagyl 500 Mg/100 Ml IV Infused Q8HR ROX[place]NE Infusion Protocol Sodium Bicarbonate 150 meq/ 1,150 mls @ 100 mls/hr 03/12/19 10:00 03/13/19 04:18 Dextrose IV 100 mls/hr DIRECT ROXANNE Administration Sodium Chloride 100 mls @ 999 mls/hr 03/12/19 14:13 Nacl 0.9% IV [place] PRN Hypotension Clindamycin HCl 900 mg in 50 mls @ 100 mls/hr 03/13/19 09:00 Cleocin 900 Mg/50 Ml IV Q8H [facility] Insulin Human Lispro 0 unit 03/11/19 06:00 03/13/19 05:47 Humalog SUB-Q 3 unit Q6HR [facility] Administration Protocol Multi-Ingred Cream/Lotion/Oil/Oint 1 applic 03/10/19 19:50 Artificial Tears Ophth Oint OU Q4HR PRN Dry Eye(s) Ondansetron HCl 4 mg 03/11/19 00:40 Zofran IV Q8H PRN Nausea And Vomiting Simple Syrup 15 ml 03/12/19 11:58 Simple Syrup FEEDTUBE PRN PRN Hypoglycemia Simple Syrup 30 ml 03/12/19 11:58 Simple Syrup FEEDTUBE PRN PRN Hypoglycemia Sodium Bicarbonate 325 mg 03/12/19 11:58 Sodium Bicarbonate FEEDTUBE PRN PRN For Clogged Feeding Tube Sodium Chloride 10 ml 03/11/19 10:00 03/13/19 00:15 Sodium Chloride Flush Syringe 10 Ml IV Not Given BID ROXANNE Sodium Chloride 10 ml 03/11/19 00:40 Sodium Chloride Flush Syringe 10 Ml IV PRN PRN LINE FLUSH
[2019-03-13] MEDS ORDERED: NACL 0.9% 100 ML IV PRN (09:29)
[2019-03-13] MEDS ORDERED: ALBURX 25% (ALBUMIN) IV PRN (09:29)
[2019-03-13 09:30] LABS: Hemoglobin 6.4 gm/dl (11.8-15.2); Mean Corpuscular HGB Conc 34 % (32-34); Mean Corpuscular Volume 94 fl (84-94); Red Blood Count 1.99 M/mm3 (3.65-5.03); Red Cell Distribution Width 18.5 % (13.2-15.2)
[2019-03-13] MEDS: ROCEPHIN/NS 2 GM/100 ML 2 GM/100 ML BAG IV SCH ×2 (09:38→21:01)
[2019-03-13] MEDS: PEPCID IV SCH (09:39)
[2019-03-13] MEDS: TYLENOL PO PRN ×3 (09:39→23:46)
[2019-03-13 09:51] LABS: Calcium 6.2 mg/dL (8.4-10.2)
[2019-03-13 10:04] LABS: Hematocrit 18.7 % (35.5-45.6); Platelet Count 36 K/mm3 (140-440)
--- NOTE | 2019-03-13 10:53 | Progress Note ---
Assessment and Plan s/p Cardiopulmonary arrest with ROSC Acute on chronic hypoxemic respiratory failure on MVS Severe sepsis with septic shock - Streptococcal Acute on chronic renal failure (multifactorial) Acute metabolic-toxic encephalopathy Morbid obesity h/o CAD s/p 2 stents Pancytopenia- probably secondary to sepsis and underlying chronic liver disease Type 2 DM h/o Alcohol abuse disorder - Blood cultures growing Beta-strep - continue and complete AB's per ID rec's - get Magnesium level (? EtOH abuse) - continue to wean levophed for MAP > 65 mmHg - TTE with EF 40-45% and diastolic dysfunction - continue Lung protective strategies - continue serial CXR's and ABG's - VAP bundle addressed - Critical care bundles addressed - Daily SATs and SBTs as odalys,erated (failed SBT today) - continue supplemental oxygen to keep O2 sats 90-92% - continue bronchodilators with pulm hygiene per RT - continue accuchecks with glycemic control per SSI for target blood glucose <180mg/dL - enetral nutrition as tolerated - Agitation management - Titrate sedation to RAAS 0 to -1 - Prevention of delirium, maintenance of sleep-wake cycle - Antibiotic therapy per ID - De-escalate therapy based on microbiology/HAYDER/Cultures - Trend hematologic indices - Avoid nephrotoxic agents, adjust all antibiotics and medications for CrCL and GFR - VTE ( SCDs) and Stress ulcer prophylaxis( therapeutic PPI for now) - discontinue Womack catheter 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 Discussed with renal service will initiate renal replacement therapy ... care plan discuussed at length with daughter at bedside and answered all her questions CONDITION: CRITICAL PROGNOSIS: GUARDED CODE STATUS: FULL CODE Discussed with the Renal, ID service and with RT/RN Discussed on ICU-IDT rounds The high probability of a clinically significant, sudden or life-threatening deterioration of the [respiratory, cardiovascular, renal, neurology] system(s) required my full and direct attention, intervention and personal management. The aggregate critical care time was [35 ] minutes without overlap. Time includes spent on; [x] Data Review and interpretation [x] Patient assessment and monitoring of vital signs [x] Documentation [x] Medication orders and management Subjective Date of service: 03/13/19 Principal diagnosis: s/p cardiac arrest; acute hypoxemic resp failure; ISMAEL; hyperkalemia, Sepsis Interval history: Patient is seen today for: s/p cardiopulmonary arrest, acute hypoxemic respiratory failure, ISMAEL, Severe hyperkalemia, Severe sepsis Seen and examined at bedside; 24hour events reviewed; nursing and respiratory care staff consulted; no adverse overnight events reported to me; resting peacefully in bed; remains on MVS; AMS is persistent; daughter visiting; no emesis or overt aspiration; remains on levophed drip at 10 mics/min Objective Vital Signs - 12hr 03/12/19 03/12/19 03/12/19 23:00 23:15 23:17 Temperature Pulse Rate 88 90 89 Pulse Rate [ From Monitor] Respiratory 22 23 22 Rate Blood Pressure 74/43 80/46 110/48 O2 Sat by Pulse 99 98 99 Oximetry 03/12/19 03/12/19 03/12/19 23:31 23:35 23:45 Temperature Pulse Rate 91 H 89 88 Pulse Rate [ From Monitor] Respiratory 24 22 Rate Blood Pressure 97/40 110/83 102/47 O2 Sat by Pulse 100 100 100 Oximetry 03/13/19 03/13/19 03/13/19 00:00 00:01 00:15 Temperature 100.6 F H Pulse Rate 90 90 Pulse Rate [ From Monitor] Respiratory 22 21 Rate Blood Pressure 110/83 110/83 O2 Sat by Pulse 100 100 100 Oximetry 03/13/19 03/13/19 03/13/19 00:30 00:45 01:00 Temperature Pulse Rate 89 89 92 H Pulse Rate [ From Monitor] Respiratory 21 21 22 Rate Blood Pressure 106/36 103/46 103/46 O2 Sat by Pulse 98 100 100 Oximetry 03/13/19 03/13/19 03/13/19 01:15 01:30 01:45 Temperature Pulse Rate 88 91 H 89 Pulse Rate [ From Monitor] Respiratory 19 20 19 Rate Blood Pressure 109/51 108/35 108/35 O2 Sat by Pulse 100 100 100 Oximetry 03/13/19 03/13/19 03/13/19 02:01 02:15 02:30 Temperature Pulse Rate 88 85 88 Pulse Rate [ From Monitor] Respiratory 17 18 19 Rate Blood Pressure 110/30 110/30 O2 Sat by Pulse 100 99 100 Oximetry 03/13/19 03/13/19 03/13/19 02:45 03:01 03:15 Temperature Pulse Rate 86 93 H 95 H Pulse Rate [ From Monitor] Respiratory 18 18 18 Rate Blood Pressure 125/32 118/22 118/22 O2 Sat by Pulse 100 97 99 Oximetry 03/13/19 03/13/19 03/13/19 03:30 03:45 03:54 Temperature Pulse Rate 88 88 89 Pulse Rate [ From Monitor] Respiratory 18 18 Rate Blood Pressure 103/37 113/30 113/30 O2 Sat by Pulse 100 100 99 Oximetry 03/13/19 03/13/19 03/13/19 04:00 04:15 04:30 Temperature 101.0 F H Pulse Rate 87 88 88 Pulse Rate [ 88 From Monitor] Respiratory 18 18 19 Rate Blood Pressure 95/45 94/41 96/47 O2 Sat by Pulse 99 99 100 Oximetry 03/13/19 03/13/19 03/13/19 04:45 05:00 05:15 Temperature Pulse Rate 87 87 88 Pulse Rate [ From Monitor] Respiratory 18 15 18 Rate Blood Pressure 96/47 100/65 100/65 O2 Sat by Pulse 100 100 100 Oximetry 03/13/19 03/13/19 03/13/19 05:30 05:45 06:00 Temperature Pulse Rate 89 89 88 Pulse Rate [ From Monitor] Respiratory 18 Rate Blood Pressure 109/35 109/35 85/40 O2 Sat by Pulse 99 99 100 Oximetry 03/13/19 03/13/19 03/13/19 06:15 06:30 06:45 Temperature Pulse Rate 88 88 87 Pulse Rate [ From Monitor] Respiratory 17 17 18 Rate Blood Pressure 84/39 100/22 89/32 O2 Sat by Pulse 98 98 99 Oximetry 03/13/19 03/13/19 03/13/19 07:00 07:15 07:30 Temperature Pulse Rate 87 87 86 Pulse Rate [ From Monitor] Respiratory 18 23 20 Rate Blood Pressure 89/27 95/39 104/29 O2 Sat by Pulse 99 98 98 Oximetry 03/13/19 03/13/19 03/13/19 07:42 07:45 08:00 Temperature 100.6 F H Pulse Rate 87 88 89 Pulse Rate [ 89 From Monitor] Respiratory 19 19 Rate Blood Pressure 104/29 104/29 97/44 O2 Sat by Pulse 99 99 99 Oximetry 03/13/19 03/13/19 03/13/19 08:15 08:30 08:45 Temperature Pulse Rate 89 89 89 Pulse Rate [ From Monitor] Respiratory 19 18 18 Rate Blood Pressure 94/35 103/28 96/32 O2 Sat by Pulse 99 99 99 Oximetry 03/13/19 03/13/19 09:00 09:15 Temperature Pulse Rate 89 89 Pulse Rate [ From Monitor] Respiratory 18 18 Rate Blood Pressure 101/34 101/34 O2 Sat by Pulse 99 98 Oximetry Constitutional: no acute distress, other (m,iddle aged morbidly obese CM, normocephalic with mildly increased resp effort at rest on MVS) Eyes: non-icteric ENT: oropharynx moist, other (ETT 24 cm ASTl) Neck: supple, no lymphadenopathy, no JVD, other (large neck circumference) Effort: mildly labored Ascultation: Bilateral: diminished breath sounds, rhonchi (bases) Percussion: Bilateral: not dull Cardiovascular: regular rate and rhythm, other (No R/M) Gastrointestinal: normoactive bowel sounds, soft, non-tender, non-distended Integumentary: normal Extremities: no cyanosis, pink and warm, pulses normal, no ischemia or petechiae Neurologic: non-focal exam (grossly), pupils equal and round, unable to assess, other (Encephalopathic) Psychiatric: other (unable to assess) CBC and BMP: 03/13/19 12:38 03/13/19 09:11 ABG, PT/INR, D-dimer: ABG POC ABG pH 7.392 (7.35-7.45) 03/13/19 04:22 POC ABG pCO2 42.6 (35-45) 03/13/19 04:22 POC ABG pO2 100 (80-105) 03/13/19 04:22 POC ABG HCO3 25.9 (22-26 mml/L) 03/13/19 04:22 POC ABG Total CO2 27 (23-27mmol/L) 03/13/19 04:22 POC ABG O2 Sat 98 03/13/19 04:22 PT/INR, D-dimer PT 14.4 Sec. (12.2-14.9) 03/10/19 17:57 INR 1.15 (0.87-1.13) H 03/10/19 17:57 Abnormal lab findings: Abnormal Labs 03/10/19 03/10/19 03/10/19 17:57 17:57 17:57 WBC 1.2 L* RBC 2.46 L Hgb 7.9 L Hct 23.2 L MCV RDW 18.2 H Plt Count 47 L [place] # 0.9 H Seg Neuts % (Manual) 6.0 L Lymphocytes % (Manual) 74.0 H Monocytes % (Manual) 20.0 H Nucleated RBC % Seg Neutrophils # 0.1 L Seg Neutrophils # Man 0.1 L Lymphocytes # (Manual) 0.9 L Monocytes # (Manual) INR POC ABG pH POC ABG pCO2 POC ABG pO2 Potassium Carbon Dioxide BUN 46 H Creatinine 2.9 H Glucose 200 H POC Glucose Lactic Acid 2.50 H* Calcium 7.6 L Total Bilirubin AST ALT Total Creatine Kinase CK-MB (CK-2) Troponin T Total Protein Albumin 3.2 L Cholesterol LDL Cholesterol Direct HDL Cholesterol Urine WBC (Auto) 03/10/19 03/10/19 03/10/19 17:57 18:01 19:16 WBC RBC Hgb Hct MCV RDW Plt Count [place] # Seg Neuts % (Manual) Lymphocytes % (Manual) Monocytes % (Manual) Nucleated RBC % Seg Neutrophils # Seg Neutrophils # Man Lymphocytes # (Manual) Monocytes # (Manual) INR 1.15 H POC ABG pH POC ABG pCO2 POC ABG pO2 Potassium Carbon Dioxide BUN Creatinine Glucose POC Glucose 234 H Lactic Acid 2.80 H* Calcium Total Bilirubin AST ALT Total Creatine Kinase CK-MB (CK-2) Troponin T Total Protein Albumin Cholesterol LDL Cholesterol Direct HDL Cholesterol Urine WBC (Auto) 03/10/19 03/10/19 03/10/19 20:56 21:32 23:06 WBC RBC Hgb Hct MCV RDW Plt Count [place] # Seg Neuts % (Manual) Lymphocytes % (Manual) Monocytes % (Manual) Nucleated RBC % Seg Neutrophils # Seg Neutrophils # Man Lymphocytes # (Manual) Monocytes # (Manual) INR POC ABG pH 7.274 L POC ABG pCO2 46.6 H POC ABG pO2 315 H Potassium Carbon Dioxide BUN Creatinine Glucose POC Glucose Lactic Acid Calcium Total Bilirubin AST ALT Total Creatine Kinase CK-MB (CK-2) Troponin T Total Protein Albumin Cholesterol LDL Cholesterol Direct HDL Cholesterol Urine WBC (Auto) 24.0 H 03/10/19 03/11/19 03/11/19 23:29 00:50 05:01 WBC RBC 2.29 L Hgb 7.3 L Hct 22.2 L MCV 97 H RDW 18.2 H Plt Count 40 L [place] # Seg Neuts % (Manual) 8.0 L Lymphocytes % (Manual) 67.0 H Monocytes % (Manual) 24.0 H Nucleated RBC % 5.0 H Seg Neutrophils # Seg Neutrophils # Man 0.4 L Lymphocytes # (Manual) Monocytes # (Manual) 1.2 H INR POC ABG pH POC ABG pCO2 POC ABG pO2 Potassium Carbon Dioxide BUN Creatinine Glucose POC Glucose 237 H Lactic Acid Calcium Total Bilirubin AST ALT Total Creatine Kinase 513 H CK-MB (CK-2) Troponin T 0.075 H Total Protein Albumin Cholesterol < 4 L LDL Cholesterol Direct 4 L HDL Cholesterol < 3 L Urine WBC (Auto) 03/11/19 03/11/19 03/11/19 05:01 06:06 06:07 WBC RBC Hgb Hct MCV RDW Plt Count [place] # Seg Neuts % (Manual) Lymphocytes % (Manual) Monocytes % (Manual) Nucleated RBC % Seg Neutrophils # Seg Neutrophils # Man Lymphocytes # (Manual) Monocytes # (Manual) INR POC ABG pH POC ABG pCO2 32.8 L POC ABG pO2 Potassium 5.3 H Carbon Dioxide 19 L BUN 49 H Creatinine 3.7 H Glucose 203 H POC Glucose Lactic Acid Calcium 7.1 L Total Bilirubin AST ALT Total Creatine Kinase 1156 H CK-MB (CK-2) 4.6 H Troponin T 0.077 H Total Protein Albumin Cholesterol LDL Cholesterol Direct HDL Cholesterol Urine WBC (Auto) 03/11/19 03/11/19 03/11/19 06:35 13:07 18:36 WBC RBC Hgb Hct MCV RDW Plt Count [place] # Seg Neuts % (Manual) Lymphocytes % (Manual) Monocytes % (Manual) Nucleated RBC % Seg Neutrophils # Seg Neutrophils # Man Lymphocytes # (Manual) Monocytes # (Manual) INR POC ABG pH POC ABG pCO2 POC ABG pO2 Potassium Carbon Dioxide BUN Creatinine Glucose POC Glucose 209 H 185 H 126 H Lactic Acid Calcium Total Bilirubin AST ALT Total Creatine Kinase CK-MB (CK-2) Troponin T Total Protein Albumin Cholesterol LDL Cholesterol Direct HDL Cholesterol Urine WBC (Auto) 03/11/19 03/12/19 03/12/19 23:45 04:25 05:06 WBC RBC 2.24 L Hgb 7.2 L Hct 21.9 L MCV 98 H RDW 18.3 H Plt Count 38 L [place] # Seg Neuts % (Manual) 4.0 L Lymphocytes % (Manual) Monocytes % (Manual) 69.0 H Nucleated RBC % Seg Neutrophils # Seg Neutrophils # Man 0.3 L Lymphocytes # (Manual) Monocytes # (Manual) 4.9 H INR POC ABG pH 7.320 L POC ABG pCO2 POC ABG pO2 Potassium Carbon Dioxide BUN Creatinine Glucose POC Glucose 137 H Lactic Acid Calcium Total Bilirubin AST ALT Total Creatine Kinase CK-MB (CK-2) Troponin T Total Protein Albumin Cholesterol LDL Cholesterol Direct HDL Cholesterol Urine WBC (Auto) 03/12/19 03/12/19 03/12/19 05:06 05:57 07:19 WBC RBC Hgb Hct MCV RDW Plt Count [place] # Seg Neuts % (Manual) Lymphocytes % (Manual) Monocytes % (Manual) Nucleated RBC % Seg Neutrophils # Seg Neutrophils # Man Lymphocytes # (Manual) Monocytes # (Manual) INR POC ABG pH POC ABG pCO2 POC ABG pO2 Potassium 6.6 H* D 6.6 H* Carbon Dioxide 17 L BUN 66 H Creatinine 5.6 H D Glucose 149 H POC Glucose 165 H Lactic Acid Calcium 6.5 L Total Bilirubin 1.90 H AST 782 H ALT 382 H Total Creatine Kinase CK-MB (CK-2) Troponin T Total Protein 5.7 L Albumin 2.7 L Cholesterol LDL Cholesterol Direct HDL Cholesterol Urine WBC (Auto) 03/12/19 03/12/19 03/12/19 15:24 18:55 23:45 WBC RBC Hgb Hct MCV RDW Plt Count [place] # Seg Neuts % (Manual) Lymphocytes % (Manual) Monocytes % (Manual) Nucleated RBC % Seg Neutrophils # Seg Neutrophils # Man Lymphocytes # (Manual) Monocytes # (Manual) INR POC ABG pH POC ABG pCO2 POC ABG pO2 Potassium Carbon Dioxide BUN Creatinine Glucose POC Glucose 167 H 212 H 197 H Lactic Acid Calcium Total Bilirubin AST ALT Total Creatine Kinase CK-MB (CK-2) Troponin T Total Protein Albumin Cholesterol LDL Cholesterol Direct HDL Cholesterol Urine WBC (Auto) 03/13/19 03/13/19 03/13/19 05:37 09:11 09:11 WBC RBC 1.99 L Hgb 6.4 L Hct 18.7 L* MCV RDW 18.5 H Plt Count 36 L [place] # Seg Neuts % (Manual) Lymphocytes % (Manual) Monocytes % (Manual) Nucleated RBC % Seg Neutrophils # Seg Neutrophils # Man Lymphocytes # (Manual) Monocytes # (Manual) INR POC ABG pH POC ABG pCO2 POC ABG pO2 Potassium Carbon Dioxide BUN 52 H Creatinine 5.5 H Glucose 235 H POC Glucose 250 H Lactic Acid Calcium 6.2 L Total Bilirubin AST ALT Total Creatine Kinase CK-MB (CK-2) Troponin T Total Protein Albumin Cholesterol LDL Cholesterol Direct HDL Cholesterol Urine WBC (Auto) Chest x-ray: image reviewed (cardiomegaly with small lung volumes; left IJ CVL; ETT in good position) Allied health notes reviewed: nursing
[2019-03-13 13:03] LABS: Hemoglobin 6.6 gm/dl (11.8-15.2); Mean Corpuscular HGB Conc 34 % (32-34); Mean Corpuscular Volume 95 fl (84-94); Red Blood Count 2.07 M/mm3 (3.65-5.03); Red Cell Distribution Width 18.5 % (13.2-15.2)
[2019-03-13 13:20] LABS: Hematocrit 19.6 % (35.5-45.6); Platelet Count 33 K/mm3 (140-440)
--- NOTE | 2019-03-13 13:32 | Progress Note ---
Assessment and Plan Pt s/p PEA cardiac arrest on 03/10. He is intubated, in septic shock, hypotensive on levophed, unresponsive off sedation. troponins minimally elevated, ECG with SR and no acute ischemic changes. Echo reviewed - EF 40-45%, mild LVH, impaired relaxation, no pericardial effusion. Head CT with some ? changes suspicious for hypoxic ischemic brain injury. Consider neurology consultation per primary. Blood cultures positive for beta hemolytic strep type A. Infectious disease team is following. Pt initiated on HD. Nephrology following. Cont supportive management. The patient has been seen in conjunction with Dr. Medina who agrees with the assessment and plan of care. - Patient Problems (1) Cardiopulmonary arrest with successful resuscitation Current Visit: Yes Status: Acute (2) Acute respiratory failure Current Visit: Yes Status: Acute (3) Sepsis Current Visit: Yes Status: Acute Qualifiers: Sepsis type: Streptococcus group B Qualified Code(s): A40.1 - Sepsis due to streptococcus, group B (4) Hypotension Current Visit: Yes Status: Acute (5) CAD (coronary artery disease) Current Visit: Yes Status: Chronic (6) Stented coronary artery Current Visit: Yes Status: Chronic (7) Pancytopenia Current Visit: Yes Status: Acute (8) Elevated troponin Current Visit: Yes Status: Acute (9) Acute on chronic renal failure Current Visit: Yes Status: Acute Qualifiers: Chronic kidney disease stage: stage 3 (moderate) (10) Diabetes Current Visit: Yes Status: Chronic (11) Obesity Current Visit: Yes Status: Chronic (12) Altered mental status Current Visit: Yes Status: Acute Subjective Date of service: 03/13/19 Principal diagnosis: s/p cardiac arrest; acute hypoxemic resp failure; ISMAEL; hyperkalemia, Sepsis Interval history: pt remains intubated, unresponsive off sedation, on levophed. Objective Last Vital Signs Temp 101.2 F H 03/13/19 11:44 Pulse 86 03/13/19 12:30 Resp 22 03/13/19 12:30 BP 115/29 03/13/19 12:30 Pulse Ox 98 03/13/19 12:30 - Physical Examination General: Other (intubated, unresponsive) Neck: Positive: neck supple, trachea midline Cardiac: Positive: Reg Rate and Rhythm, S1/S2 Lungs: Positive: Decreased Breath Sounds, Oxygen, Ventilated Respirations Neuro: Positive: Other (intubated, nonresponsive ) Skin: Negative: Rash Musculoskeletal: No Pain Extremities: Present: edema (trace BLE) - Labs and Meds CBC 03/13/19 03/13/19 Range/Units 09:11 12:38 WBC 5.8 5.9 (4.5-11.0) K/mm3 RBC 1.99 L 2.07 L (3.65-5.03) M/mm3 Hgb 6.4 L 6.6 L (11.8-15.2) gm/dl Hct 18.7 L* 19.6 L* (35.5-45.6) % Plt Count 36 L 33 L (140-440) K/mm3 Comprehensive Metabolic Panel 03/13/19 Range/Units 09:11 Sodium 140 (137-145) mmol/L Potassium 4.6 D (3.6-5.0) mmol/L Chloride 100.5 (98-107) mmol/L Carbon Dioxide 24 D (22-30) mmol/L BUN 52 H (9-20) mg/dL Creatinine 5.5 H (0.8-1.5) mg/dL Glucose 235 H (75-100) mg/dL Calcium 6.2 L (8.4-10.2) mg/dL - Imaging and Cardiology EKG: report reviewed, image reviewed Echo: report reviewed ( 03/05/2019 showed EF 60-65%, mild LVH, LA mildly dilated, small pericardial effusion. ) - Telemetry EKG Rhythm: Sinus Rhythm - EKG Sinus rhythms and dysrhythmias: sinus rhythm AV and intraventricular conduction: left anterior fascicular - Allied health notes Allied health notes reviewed: nursing
[2019-03-13] MEDS ORDERED: NACL 0.9% 500 ML 500 ML IV NR (17:23)
[2019-03-14] MEDS: CLEOCIN 900 MG/50 mL 900 MG/50 ML BAG IV SCH ×3 (00:34→18:46)
--- NOTE | 2019-03-14 05:02 | XRay Report ---
PROCEDURE: XR CHEST 1V AP TECHNIQUE: Chest radiograph single view. HISTORY: follow up respiratory failure COMPARISONS: 03/10/2019 CT and radiograph, CT abdomen pelvis 03/11/2019. FINDINGS: Endotracheal tube terminates approximately 5-6 cm above the maureen. Enteric tube courses below the di aphragm and off the inferior field of view. Mild hypoaeration of the lungs. No mediastinal shift. Car diac silhouette is unchanged. Linear bibasilar atelectasis. No pneumothorax, definite effusion, or fo suzanne airspace disease identified. No acute skeletal findings. IMPRESSION: Satisfactory appearance of the patient's support apparatus without pneumothorax or significant change compared to recent prior exams. This document is electronically signed by Cody Schmid MD., March 14 2019 05:00:10 AM ET
[2019-03-14] MEDS: HumaLOG SUB-Q SCH ×3 (05:53→18:43)
[2019-03-14] MEDS: LEVOPHED DRIP 4 MG/NS 250 ML 4 MG/250 ML BAG IV SCH ×2 (05:54→12:07)
[2019-03-14] MEDS ORDERED: NACL 0.9% 100 ML IV PRN (09:00)
[2019-03-14] MEDS: ROCEPHIN/NS 2 GM/100 ML 2 GM/100 ML BAG IV SCH ×2 (09:38→22:34)
[2019-03-14] MEDS ORDERED: PEPCID PO SCH (10:00)
[2019-03-14] MEDS ORDERED: LANTUS SUB-Q SCH (10:00)
--- NOTE | 2019-03-14 10:07 | Progress Note ---
Assessment and Plan Pt s/p PEA cardiac arrest on 03/10. He is intubated, in septic shock with bacteremia, hypotensive on levophed, unresponsive off sedation. troponins minimally elevated, ECG with SR and no acute ischemic changes. he has ARF and has been initiated on HD. ID is following for severe sepsis. Echo reviewed - EF 40-45%, mild LVH, impaired relaxation, no pericardial effusion. Pt has h/o CAD s/p PCI x 2 at [place] in 03/2016. Head CT with some ? changes suspicious for hypoxic ischemic brain injury. Consider neurology consultation per primary. Cont supportive management. The patient has been seen in conjunction with Dr. Medina who agrees with the assessment and plan of care. - Patient Problems (1) Cardiopulmonary arrest with successful resuscitation Current Visit: Yes Status: Acute (2) Acute respiratory failure Current Visit: Yes Status: Acute (3) Sepsis Current Visit: Yes Status: Acute Qualifiers: Sepsis type: Streptococcus group B Qualified Code(s): A40.1 - Sepsis due to streptococcus, group B (4) Hypotension Current Visit: Yes Status: Acute (5) CAD (coronary artery disease) Current Visit: Yes Status: Chronic (6) Stented coronary artery Current Visit: Yes Status: Chronic (7) Pancytopenia Current Visit: Yes Status: Acute (8) Elevated troponin Current Visit: Yes Status: Acute (9) Acute on chronic renal failure Current Visit: Yes Status: Acute Qualifiers: Chronic kidney disease stage: stage 3 (moderate) (10) Diabetes Current Visit: Yes Status: Chronic (11) Obesity Current Visit: Yes Status: Chronic (12) Altered mental status Current Visit: Yes Status: Acute Subjective Date of service: 03/14/19 Principal diagnosis: s/p cardiac arrest; acute hypoxemic resp failure; ISMAEL; hyperkalemia, Sepsis Interval history: pt remains intubated, unresponsive off sedation, on levophed. Objective Last Vital Signs Temp 99.7 F H 03/14/19 08:00 Pulse 93 H 03/14/19 09:15 Resp 28 H 03/14/19 09:15 BP 126/69 03/14/19 09:15 Pulse Ox 96 03/14/19 09:15 - Physical Examination General: Other (intubated, unresponsive) Neck: Positive: neck supple, trachea midline Neuro: Positive: Other (intubated, nonresponsive ) Skin: Negative: Rash Musculoskeletal: No Pain Extremities: Present: edema (trace BLE) - Labs and Meds CBC 03/13/19 Range/Units 12:38 WBC 5.9 (4.5-11.0) K/mm3 RBC 2.07 L (3.65-5.03) M/mm3 Hgb 6.6 L (11.8-15.2) gm/dl Hct 19.6 L* (35.5-45.6) % Plt Count 33 L (140-440) K/mm3 - Imaging and Cardiology EKG: image reviewed Echo: report reviewed ( 03/05/2019 showed EF 60-65%, mild LVH, LA mildly dilated, small pericardial effusion. ) - EKG Sinus rhythms and dysrhythmias: sinus rhythm AV and intraventricular conduction: left anterior fascicular - Allied health notes Allied health notes reviewed: nursing
[2019-03-14] MEDS: TYLENOL PO PRN (12:01)
--- NOTE | 2019-03-14 13:13 | Progress Note ---
Assessment and Plan Cultures: Blood culture 03/10/2019 Group-A Strep 2 of 4 bottles Tracheal asp 03/10/2019 poor specimen Blood culture 03/12/2019 no growth today C diff negative Assessment: 54 y/o male with history of diabetes, hypertension, chronic kidney disease, coronary artery disease admitted on 03/10/2019 due to a week history of facial/mouth pain (?dental pain) associated with generalized weakness, cold se nsation, cough with dean sputum production and body aches, 48 hour-history of sore throat, in the ED patient went into PEA arrest s/p CPR: 1) Severe Sepsis with PEA arrest and transient shock post arrest: still high fever, bandemia still on levophed. Etiology likely due to GAS bacteremia. UA with 24 wbc with no LE ? mild UTI (does not explain severity of sepsis). Influenza rapid negative. CXR and CT chest no consolidations. 2) Invasive Group-A Strep bacteremia/toxic shock syndrome: source unclear ?tonsillopharingitis, ?dental abscess, ?early aspiration pneumonia. Blood culture 03/10/2019 Group-A Strep [address] face showed a small right mandibular premolar abscess, poor dentition and chronic sinusitis. TTE no vegeta tions. 3) Acute encephalopathy: not better; post arrest +/- due to infection ? ischemic brain injury. CT head some indistinctness and loss of dean-white matter differentiation and indistinct visualization of the basal ganglia. This is nonspecific finding but may be seen with diffuse hypoxic ischemic brain injury. 4) Acute respiratory failure: now intubated. CT chest without contrast shows pericardial effusion measuring up to 1.4 cm in transverse diameter, posterior atelectasis both lungs. Minimal pleural fluid collection. 5) Thrombocytopenia: from sepsis 6) ISMAEL on CKD: renally adjusted meds. Now on HD had a fem vas cath 7) Diarrhea: resolved. C diff neg Recommendations: - stop contact and droplet precaution - Cdiff negative and doubt meningitis - neuro consult, mentation not better off sedative - continue clindamycin 900 mg IV q8h and continue ceftriaxone for Group-A Strep bacteremia/toxic shock syndrome - cancel lumbar puncture - stop flagyl - femoral vascath should be removed soon Poor prognosis. Dr Horton is covering this weekend and next 2 weeks. Will follow. Marietta Ahuja MD Infectious Diseases Respiratory Care Specialist [facility], [place], [facility] ([facility] M [phone] O [phone] Subjective Date of service: 03/14/19 Principal diagnosis: s/p cardiac arrest; acute hypoxemic resp failure; ISMAEL; hyperkalemia, Sepsis Interval history: Patient remains intubated, increasing levophed at 10 mcg/min, no sedation, unresponsive. High grade fever 100.2. ROS unable to obtain Objective - Exam Narrative Exam: General: unresponsive intubated in NAD Eyes: anicteric sclerae, moist conjunctivae; no lid-lag; PERRLA HENT: Atraumatic; oropharynx ETT with creamy thick sputum Neck: Trachea midline; ryan swollen neck vs obese body habitus Lungs: ryan rhonchi CV: RRR no murmur Abdomen: Soft, non-tender; obese Extremities: ryan leg/hands edema Skin: no rash, ulcers or subcutaneous nodules Psych: unresponsive no agitated. Neuro: unresponsive no agitated - Constitutional Vitals: Vital Signs Temp Pulse Resp BP Pulse Ox 99.7 F H 92 H 28 H 110/53 99 03/14/19 10:15 03/14/19 13:00 03/14/19 11:15 03/14/19 13:00 03/14/19 11:15 Temperature -Last 24 Hours Temperature 99.7 F Temperature 99.7 F Temperature 99.3 F Temperature 99.3 F Temperature 100.2 F Temperature 100.2 F Temperature 100.0 F Temperature 100.0 F Temperature 99.9 F Temperature 99.7 F Temperature 101 F Temperature 101.0 F - Labs CBC & Chem 7: 03/13/19 12:38 03/13/19 09:11 Labs: Abnormal lab results 03/10/19 03/13/19 03/13/19 Range/Units 18:52 12:38 18:11 RBC 2.07 L (3.65-5.03) M/mm3 Hgb 6.6 L (11.8-15.2) gm/dl Hct 19.6 L* (35.5-45.6) % MCV 95 H (84-94) fl RDW 18.5 H (13.2-15.2) % Plt Count 33 L (140-440) K/mm3 POC ABG pH (7.35-7.45) POC Glucose 255 H (70-105) Crossmatch See Detail 03/13/19 03/13/19 03/13/19 Range/Units 19:12 20:58 23:49 RBC (3.65-5.03) M/mm3 Hgb (11.8-15.2) gm/dl Hct (35.5-45.6) % MCV (84-94) fl RDW (13.2-15.2) % Plt Count (140-440) K/mm3 POC ABG pH 7.466 H (7.35-7.45) POC Glucose 289 H (70-105) Crossmatch See Detail 03/14/19 03/14/19 Range/Units 05:51 11:39 RBC (3.65-5.03) M/mm3 Hgb (11.8-15.2) gm/dl Hct (35.5-45.6) % MCV (84-94) fl RDW (13.2-15.2) % Plt Count (140-440) K/mm3 POC ABG pH (7.35-7.45) POC Glucose 305 H 283 H (70-105) Crossmatch
--- NOTE | 2019-03-14 13:36 | Progress Note ---
Assessment and Plan - Patient Problems (1) Acute on chronic renal failure Current Visit: Yes Status: Acute Qualifiers: Chronic kidney disease stage: stage 3 (moderate) Plan to address problem: Likely secondary to acute tubular necrosis in the setting of cardiac arrest, streptococcal bacteremia . Patient remains anuric. Will place patient on third session of HD today, 3.0 hrs, with goal UF 500cc-1L as tolerated. Will add renal US as well as complement levels and ANCA studies. UA noted for microscopic hematuria/proteinuria, so will need to r/o GN etiologies. (2) Hyperkalemia Current Visit: Yes Status: Acute Plan to address problem: Potassium levels stabilized on dialysis. Run on 2K dialysate bath (3) Cardiopulmonary arrest with successful resuscitation Current Visit: Yes Status: Acute Plan to address problem: Return of spontaneous circulation in the emergency room about 2 doses of epinephrine. Patient is on Levothroid at this time and cardiology evaluation has been reviewed and noted. Patient also had a repeat echocardiogram done and reviewed with EF 40-45% and impaired relaxation noted. We'll follow up with further recommendations from cardiology standpoint. (4) Sepsis Current Visit: Yes Status: Acute Qualifiers: Sepsis type: Streptococcus group B Qualified Code(s): A40.1 - Sepsis due to streptococcus, group B Plan to address problem: Streptococcal bacteremia noted on initial blood cultures. Patient is on the antibiotics at this time per infectious disease recommendations. Please ensure that antibiotics are dosed appropriately for his decreased creatinine clearance and renal function. R/O meningitis per ID recommendations/note. (5) Metabolic acidosis Current Visit: Yes Status: Acute Plan to address problem: Will address with hemodialysis. Bicarbonate gtt has been discontinued. (6) Hypotension Current Visit: Yes Status: Acute Plan to address problem: Patient continues on appropriate pressor support. Agree with holding any antihypertensive medication at this time given his hemodynamic instability. We'll continue to monitor closely. (7) Type 2 diabetes mellitus with diabetic chronic kidney disease Current Visit: Yes Status: Acute Qualifiers: Chronic kidney disease stage: stage 3 (moderate) Plan to address problem: diabetes management per primary attending. Subjective Date of service: 03/14/19 Principal diagnosis: s/p cardiac arrest; acute hypoxemic resp failure; ISMAEL; hyperkalemia, Sepsis Interval history: No acute changes overnight. Remains intubated. Received second session of HD yesterday. Will plan for third session of HD today. Remains essentially anuric, without any signs of renal recovery at this time. Objective - Vital Signs Vital signs: Vital Signs - 12hr 03/14/19 03/14/19 03/14/19 01:41 01:45 02:00 Temperature 99.3 F Pulse Rate 89 87 Pulse Rate [ From Monitor] Respiratory 22 21 Rate Blood Pressure 113/33 120/36 O2 Sat by Pulse 99 100 Oximetry O2 Sat by Pulse Oximetry [ Anterior Bilateral Throughout] O2 Sat by Pulse Oximetry [ Throughout] 03/14/19 03/14/19 03/14/19 02:15 02:30 02:45 Temperature Pulse Rate 85 85 88 Pulse Rate [ From Monitor] Respiratory 22 22 24 Rate Blood Pressure 130/27 125/38 144/36 O2 Sat by Pulse 99 99 99 Oximetry O2 Sat by Pulse Oximetry [ Anterior Bilateral Throughout] O2 Sat by Pulse Oximetry [ Throughout] 03/14/19 03/14/19 03/14/19 03:00 03:15 03:20 Temperature Pulse Rate 83 84 86 Pulse Rate [ From Monitor] Respiratory 21 22 Rate Blood Pressure 117/39 123/31 123/31 O2 Sat by Pulse 99 99 98 Oximetry O2 Sat by Pulse Oximetry [ Anterior Bilateral Throughout] O2 Sat by Pulse Oximetry [ Throughout] 03/14/19 03/14/19 03/14/19 03:30 03:45 04:00 Temperature 99.3 F Pulse Rate 84 85 86 Pulse Rate [ 88 From Monitor] Respiratory 21 22 23 Rate Blood Pressure 119/40 119/40 O2 Sat by Pulse 98 98 98 Oximetry O2 Sat by Pulse Oximetry [ Anterior Bilateral Throughout] O2 Sat by Pulse Oximetry [ Throughout] 03/14/19 03/14/19 03/14/19 04:01 04:15 04:30 Temperature Pulse Rate 88 85 86 Pulse Rate [ From Monitor] Respiratory 23 20 22 Rate Blood Pressure 116/33 107/50 115/53 O2 Sat by Pulse 98 98 99 Oximetry O2 Sat by Pulse Oximetry [ Anterior Bilateral Throughout] O2 Sat by Pulse Oximetry [ Throughout] 03/14/19 03/14/19 03/14/19 04:45 05:00 05:15 Temperature Pulse Rate 86 86 85 Pulse Rate [ From Monitor] Respiratory 22 23 20 Rate Blood Pressure 122/48 116/49 125/47 O2 Sat by Pulse 98 98 99 Oximetry O2 Sat by Pulse Oximetry [ Anterior Bilateral Throughout] O2 Sat by Pulse Oximetry [ Throughout] 03/14/19 03/14/19 03/14/19 05:31 05:45 06:00 Temperature Pulse Rate 86 87 88 Pulse Rate [ From Monitor] Respiratory 21 21 23 Rate Blood Pressure 114/33 129/48 112/15 O2 Sat by Pulse 98 98 97 Oximetry O2 Sat by Pulse Oximetry [ Anterior Bilateral Throughout] O2 Sat by Pulse Oximetry [ Throughout] 03/14/19 03/14/19 03/14/19 06:15 06:30 06:45 Temperature Pulse Rate 86 86 87 Pulse Rate [ From Monitor] Respiratory 22 22 22 Rate Blood Pressure 127/56 131/42 128/44 O2 Sat by Pulse 98 98 98 Oximetry O2 Sat by Pulse Oximetry [ Anterior Bilateral Throughout] O2 Sat by Pulse Oximetry [ Throughout] 03/14/19 03/14/19 03/14/19 07:00 07:15 07:30 Temperature Pulse Rate 88 91 H 88 Pulse Rate [ From Monitor] Respiratory 25 H 24 24 Rate Blood Pressure 126/65 116/40 131/48 O2 Sat by Pulse 98 98 98 Oximetry O2 Sat by Pulse Oximetry [ Anterior Bilateral Throughout] O2 Sat by Pulse Oximetry [ Throughout] 03/14/19 03/14/19 03/14/19 07:40 07:44 07:45 Temperature Pulse Rate 94 H 92 H 91 H Pulse Rate [ From Monitor] Respiratory 27 H 26 H Rate Blood Pressure 131/48 131/48 136/47 O2 Sat by Pulse 97 97 97 Oximetry O2 Sat by Pulse Oximetry [ Anterior Bilateral Throughout] O2 Sat by Pulse Oximetry [ Throughout] 03/14/19 03/14/19 03/14/19 08:00 08:15 08:30 Temperature 99.7 F H Pulse Rate 90 91 H 91 H Pulse Rate [ 88 From Monitor] Respiratory 25 H 26 H 27 H Rate Blood Pressure 147/42 147/42 133/70 O2 Sat by Pulse 97 97 97 Oximetry O2 Sat by Pulse Oximetry [ Anterior Bilateral Throughout] O2 Sat by Pulse Oximetry [ Throughout] 03/14/19 03/14/19 03/14/19 08:45 09:00 09:15 Temperature Pulse Rate 91 H 90 93 H Pulse Rate [ From Monitor] Respiratory 28 H 27 H 28 H Rate Blood Pressure 143/55 126/69 126/69 O2 Sat by Pulse 97 97 96 Oximetry O2 Sat by Pulse Oximetry [ Anterior Bilateral Throughout] O2 Sat by Pulse Oximetry [ Throughout] 03/14/19 03/14/19 03/14/19 10:15 10:30 10:45 Temperature 99.7 F H Pulse Rate 94 H 95 H 95 H Pulse Rate [ From Monitor] Respiratory 28 H Rate Blood Pressure 140/38 137/45 139/49 O2 Sat by Pulse Oximetry O2 Sat by Pulse 98 Oximetry [ Anterior Bilateral Throughout] O2 Sat by Pulse 98 Oximetry [ Throughout] 03/14/19 03/14/19 03/14/19 11:00 11:15 11:30 Temperature Pulse Rate 94 H 88 89 Pulse Rate [ From Monitor] Respiratory 28 H Rate Blood Pressure 146/43 135/45 151/64 O2 Sat by Pulse 99 Oximetry O2 Sat by Pulse Oximetry [ Anterior Bilateral Throughout] O2 Sat by Pulse Oximetry [ Throughout] 03/14/19 03/14/19 03/14/19 11:45 12:00 12:15 Temperature Pulse Rate 91 H 92 H 93 H Pulse Rate [ From Monitor] Respiratory Rate Blood Pressure 144/56 153/51 129/54 O2 Sat by Pulse Oximetry O2 Sat by Pulse Oximetry [ Anterior Bilateral Throughout] O2 Sat by Pulse Oximetry [ Throughout] 03/14/19 03/14/19 03/14/19 12:30 12:45 13:00 Temperature Pulse Rate 91 H 88 92 H Pulse Rate [ From Monitor] Respiratory Rate Blood Pressure 127/49 110/31 110/53 O2 Sat by Pulse Oximetry O2 Sat by Pulse Oximetry [ Anterior Bilateral Throughout] O2 Sat by Pulse Oximetry [ Throughout] - General Appearance General appearance: obese, chronically ill, intubated, comatose EENT: ATNC Neck: no JVD, no thyromegaly Respiratory: Present: Decreased Breath Sounds Cardiology: regular, S1S2 Gastrointestinal: normal, normoactive bowel sounds Integumentary: no rash, warm and dry Neurologic: no focal deficit, alert and oriented x3 Musculoskeletal: other (-edema ) Psychiatric: mood/affect appropriate - Lab 03/13/19 12:38 03/13/19 09:11 Most recent lab results Calcium 6.2 mg/dL (8.4-10.2) L 03/13/19 09:11 - Allied health notes Allied health notes reviewed: nursing Medications & Allergies - Medications Allergies/Adverse Reactions: Allergies No Known Allergies Allergy (Verified 03/10/19 17:37) Home Medications: Home Medications Medication Instructions Recorded Confirmed Last Taken Type Allopurinol [Zyloprim] 300 mg PO DAILY 03/10/19 03/10/19 Unknown History Aspirin [Adult Aspirin] 81 mg PO DAILY 03/10/19 03/10/19 Unknown History Atorvastatin [Lipitor Tab] 80 mg PO DAILY 03/10/19 03/10/19 Unknown History Carvedilol [Coreg] 12.5 mg PO BID 03/10/19 03/10/19 Unknown History Clopidogrel [Plavix] 75 mg PO DAILY 03/10/19 03/10/19 Unknown History Gabapentin [Neurontin] 300 mg PO BID 03/10/19 03/10/19 Unknown History Insulin Lispro Protamin/Lispro 33 unit SQ BID 03/10/19 03/10/19 Unknown History [Humalog Mix 75-25 Vial] Lisinopril [Zestril TAB] 10 mg PO DAILY 03/10/19 03/10/19 Unknown History Pantoprazole [Protonix] 40 mg PO DAILY 03/10/19 03/10/19 Unknown History Sitagliptin Phosphate [Januvia] 50 mg PO DAILY 03/10/19 03/10/19 Unknown History Active Medications: Generic Name Dose Route Start Last Admin Trade Name [place] PRN Reason Stop Dose Admin Acetaminophen 650 mg 03/11/19 00:40 03/14/19 12:01 Tylenol PO 650 mg Q4H PRN Administration Pain MILD(1-3)/Fever >100.5/[place] Acetaminophen 650 mg 03/11/19 00:40 03/12/19 04:53 Tylenol DC 650 mg Q4H PRN Administration Pain MILD(1-3)/Fever >100.5/[place] Albumin Human 12.5 gm 03/13/19 09:29 Alburx 25% (Albumin) IV DUKE PRN Hypotension Lipase/Protease/Amylase 1 each 03/12/19 11:58 Pancrenydia Manzo 10,500 Unit FEEDTUBE PRN PRN For Clogged Feeding Tube Dextrose 50 ml 03/11/19 00:44 D50w (25gm) Syringe IV PRN PRN Hypoglycemia Famotidine 20 mg 03/14/19 10:00 03/14/19 09:39 Pepcid PO 20 mg DAILY ROXANNE Administration Fentanyl 50 mcg 03/11/19 07:50 Sublimaze IV Q10MIN PRN ANALGESIA Hydrophilic Ointment 1 applic 03/10/19 19:50 Vaseline Lip Therapy TP Q2HR PRN Dry Lips Propofol 1,000 mg in 100 mls @ 4.082 mls/hr 03/10/19 20:00 03/11/19 14:30 Diprivan 10 Mg/Ml IV Infused TITR ROXANNE Titration Protocol 5 MCG/KG/MIN Norepinephrine 4 mg in 250 mls @ 7.5 mls/hr 03/10/19 21:00 03/14/19 12:19 Levophed Drip 4 Mg/Ns 250 Ml IV 6 mcg/min TITR ROXANNE 22.5 mls/hr Titration Protocol 2 MCG/MIN Fentanyl Citrate 2,000 mcg in 100 mls @ 6.804 mls/hr 03/11/19 08:00 03/11/19 19:43 Fentanyl Drip Premix IV 0 mcg/kg/hr TITR ROXANNE 0 mls/hr Titration Protocol 1 MCG/KG/HR Ceftriaxone Sodium 2 gm in 100 mls @ 200 mls/hr 03/11/19 13:00 03/14/19 09:38 Rocephin/Ns 2 Gm/100 Ml IV 200 mls/hr Q12HR ROXANNE Administration Protocol Clindamycin HCl 900 mg in 50 mls @ 100 mls/hr 03/13/19 09:00 03/14/19 08:32 Cleocin 900 Mg/50 Ml IV 100 mls/hr Q8H ROXANNE Administration Sodium Chloride 100 mls @ 999 mls/hr 03/14/19 09:00 Nacl 0.9% IV DUKE PRN Hypotension Insulin Glargine 20 units 03/14/19 10:00 03/14/19 09:39 Lantus SUB-Q 20 units DAILY ROXANNE Administration Insulin Human Lispro 0 unit 03/11/19 06:00 03/14/19 12:02 Humalog SUB-Q 6 unit Q6HR ROXANNE Administration Protocol Multi-Ingred Cream/Lotion/Oil/Oint 1 applic 03/10/19 19:50 Artificial Tears Ophth Oint OU Q4HR PRN Dry Eye(s) Ondansetron HCl 4 mg 03/11/19 00:40 Zofran IV Q8H PRN Nausea And Vomiting Simple Syrup 15 ml 03/12/19 11:58 Simple Syrup FEEDTUBE PRN PRN Hypoglycemia Simple Syrup 30 ml 03/12/19 11:58 Simple Syrup FEEDTUBE PRN PRN Hypoglycemia Sodium Bicarbonate 325 mg 03/12/19 11:58 Sodium Bicarbonate FEEDTUBE PRN PRN For Clogged Feeding Tube Sodium Chloride 10 ml 03/11/19 10:00 03/13/19 21:02 Sodium Chloride Flush Syringe 10 Ml IV 10 ml BID ROXANNE Administration Sodium Chloride 10 ml 03/11/19 00:40 Sodium Chloride Flush Syringe 10 Ml IV PRN PRN LINE FLUSH
[2019-03-14 14:34] LABS: Hemoglobin 8.9 gm/dl (11.8-15.2); Mean Corpuscular HGB Conc 34 % (32-34); Mean Corpuscular Volume 93 fl (84-94); Red Blood Count 2.78 M/mm3 (3.65-5.03); Red Cell Distribution Width 17.9 % (13.2-15.2)
[2019-03-14 14:36] LABS: Platelet Count 42 K/mm3 (140-440)
--- NOTE | 2019-03-14 15:10 | Progress Note ---
Assessment and Plan Critical care time 32 minutes - Patient Problems (1) Acute metabolic encephalopathy Current Visit: Yes Status: Acute Plan to address problem: Multifactorial Sepsis Possible anoxic encephalopathy (2) Acute respiratory failure Current Visit: Yes Status: Acute Qualifiers: Respiratory failure complication: hypoxia Qualified Code(s): J96.01 - Acute respiratory failure with hypoxia Plan to address problem: S/p cardiac arrest Cont vent support Anoxic Encepahlopathy?? (3) Cardiopulmonary arrest with successful resuscitation Current Visit: Yes Status: Acute Plan to address problem: S/p cardiac arrest in ED with ROSC (4) Sepsis Current Visit: Yes Status: Acute Plan to address problem: On Ceftriaxone and Clindamycin (5) Acute renal failure Current Visit: Yes Status: Acute Qualifiers: Acute renal failure type: with acute tubular necrosis Qualified Code(s): N17.0 - Acute kidney failure with tubular necrosis Plan to address problem: Cont IV Fluids Nephrology following BUN/Cr 52/5.5 (6) Hypotension Current Visit: Yes Status: Acute Qualifiers: Hypotension type: unspecified hypotension type Qualified Code(s): I95.9 - Hypotension, unspecified Plan to address problem: Sec to sepsis Cont IV Levophed (7) T2DM (type 2 diabetes mellitus) Current Visit: Yes Status: Acute Qualifiers: Diabetes mellitus mcfp insulin use: unspecified mcfp insulin use status Plan to address problem: Coverage for now (8) CAD (coronary artery disease) Current Visit: Yes Status: Chronic Qualifiers: Coronary Disease-Associated Artery/Lesion type: [place] artery [place] vs. transplanted heart: [place] heart Plan to address problem: With stentsx2 from past (9) DVT prophylaxis Current Visit: Yes Status: Acute Plan to address problem: On Heparin and GI prophylaxis Subjective Date of service: 03/14/19 Principal diagnosis: s/p cardiac arrest; acute hypoxemic resp failure; ISMAEL; hyperkalemia, Sepsis Interval history: 54-year-old man admitted history of hypertension, diabetes, chronic kidney disease, coronary artery disease was brought to the emergency room for evaluation of shortness of breath, generalized body aches. and daughter at bedside state that he's been sick for a month and a half. Also complaining of chills. She states that he had diarrhea for one month, got worse. + Decrease oral intake Chest x-ray was ordered in the emergency room, while the geotechnical engineering technician was trying to get help to get the x-ray done, upon return to the room, the patient was not breathing. He was successfully resuscitated, intubated. He was started on vancomycin, Zosyn and levophed drip. Admitted for Acute resp failure s/p cardiac arresr and Septic shock. Same condition. Afebrile Overnight events noted Objective - Exam Narrative Exam: Intubated - Constitutional Vitals: Vital Signs - 12hr 03/14/19 03/14/19 03/14/19 03:15 03:20 03:30 Temperature Pulse Rate 84 86 84 Pulse Rate [ From Monitor] Respiratory 22 21 Rate Blood Pressure 123/31 123/31 119/40 O2 Sat by Pulse 99 98 98 Oximetry O2 Sat by Pulse Oximetry [ Anterior Bilateral Throughout] O2 Sat by Pulse Oximetry [ Throughout] 03/14/19 03/14/19 03/14/19 03:45 04:00 04:01 Temperature 99.3 F Pulse Rate 85 86 88 Pulse Rate [ 88 From Monitor] Respiratory 22 23 23 Rate Blood Pressure 119/40 116/33 O2 Sat by Pulse 98 98 98 Oximetry O2 Sat by Pulse Oximetry [ Anterior Bilateral Throughout] O2 Sat by Pulse Oximetry [ Throughout] 03/14/19 03/14/19 03/14/19 04:15 04:30 04:45 Temperature Pulse Rate 85 86 86 Pulse Rate [ From Monitor] Respiratory 20 22 22 Rate Blood Pressure 107/50 115/53 122/48 O2 Sat by Pulse 98 99 98 Oximetry O2 Sat by Pulse Oximetry [ Anterior Bilateral Throughout] O2 Sat by Pulse Oximetry [ Throughout] 03/14/19 03/14/19 03/14/19 05:00 05:15 05:31 Temperature Pulse Rate 86 85 86 Pulse Rate [ From Monitor] Respiratory 23 20 21 Rate Blood Pressure 116/49 125/47 114/33 O2 Sat by Pulse 98 99 98 Oximetry O2 Sat by Pulse Oximetry [ Anterior Bilateral Throughout] O2 Sat by Pulse Oximetry [ Throughout] 03/14/19 03/14/19 03/14/19 05:45 06:00 06:15 Temperature Pulse Rate 87 88 86 Pulse Rate [ From Monitor] Respiratory 21 23 22 Rate Blood Pressure 129/48 112/15 127/56 O2 Sat by Pulse 98 97 98 Oximetry O2 Sat by Pulse Oximetry [ Anterior Bilateral Throughout] O2 Sat by Pulse Oximetry [ Throughout] 03/14/19 03/14/19 03/14/19 06:30 06:45 07:00 Temperature Pulse Rate 86 87 88 Pulse Rate [ From Monitor] Respiratory 22 22 25 H Rate Blood Pressure 131/42 128/44 126/65 O2 Sat by Pulse 98 98 98 Oximetry O2 Sat by Pulse Oximetry [ Anterior Bilateral Throughout] O2 Sat by Pulse Oximetry [ Throughout] 03/14/19 03/14/19 03/14/19 07:15 07:30 07:40 Temperature Pulse Rate 91 H 88 94 H Pulse Rate [ From Monitor] Respiratory 24 24 Rate Blood Pressure 116/40 131/48 131/48 O2 Sat by Pulse 98 98 97 Oximetry O2 Sat by Pulse Oximetry [ Anterior Bilateral Throughout] O2 Sat by Pulse Oximetry [ Throughout] 03/14/19 03/14/19 03/14/19 07:44 07:45 08:00 Temperature 99.7 F H Pulse Rate 92 H 91 H 90 Pulse Rate [ 88 From Monitor] Respiratory 27 H 26 H 25 H Rate Blood Pressure 131/48 136/47 147/42 O2 Sat by Pulse 97 97 97 Oximetry O2 Sat by Pulse Oximetry [ Anterior Bilateral Throughout] O2 Sat by Pulse Oximetry [ Throughout] 03/14/19 03/14/19 03/14/19 08:15 08:30 08:45 Temperature Pulse Rate 91 H 91 H 91 H Pulse Rate [ From Monitor] Respiratory 26 H 27 H 28 H Rate Blood Pressure 147/42 133/70 143/55 O2 Sat by Pulse 97 97 97 Oximetry O2 Sat by Pulse Oximetry [ Anterior Bilateral Throughout] O2 Sat by Pulse Oximetry [ Throughout] 03/14/19 03/14/19 03/14/19 09:00 09:15 09:30 Temperature Pulse Rate 90 93 H 95 H Pulse Rate [ From Monitor] Respiratory 27 H 28 H 28 H Rate Blood Pressure 126/69 126/69 123/39 O2 Sat by Pulse 97 96 96 Oximetry O2 Sat by Pulse Oximetry [ Anterior Bilateral Throughout] O2 Sat by Pulse Oximetry [ Throughout] 03/14/19 03/14/19 03/14/19 09:45 10:00 10:15 Temperature 99.7 F H Pulse Rate 93 H 95 H 91 H Pulse Rate [ From Monitor] Respiratory 28 H 28 H 29 H Rate Blood Pressure 116/39 127/34 127/34 O2 Sat by Pulse 97 97 98 Oximetry O2 Sat by Pulse 98 Oximetry [ Anterior Bilateral Throughout] O2 Sat by Pulse 98 Oximetry [ Throughout] 03/14/19 03/14/19 03/14/19 10:30 10:45 11:00 Temperature Pulse Rate 94 H 90 96 H Pulse Rate [ From Monitor] Respiratory 30 H 28 H 28 H Rate Blood Pressure 137/45 137/45 146/43 O2 Sat by Pulse 99 98 99 Oximetry O2 Sat by Pulse Oximetry [ Anterior Bilateral Throughout] O2 Sat by Pulse Oximetry [ Throughout] 03/14/19 03/14/19 03/14/19 11:15 11:30 11:45 Temperature Pulse Rate 98 H 95 H 97 H Pulse Rate [ From Monitor] Respiratory 26 H 28 H 29 H Rate Blood Pressure 146/43 151/64 151/64 O2 Sat by Pulse 98 97 98 Oximetry O2 Sat by Pulse Oximetry [ Anterior Bilateral Throughout] O2 Sat by Pulse Oximetry [ Throughout] 03/14/19 03/14/19 03/14/19 12:00 12:15 12:30 Temperature 100.5 F H Pulse Rate 95 H 95 H 91 H Pulse Rate [ From Monitor] Respiratory 30 H 29 H Rate Blood Pressure 153/51 151/64 127/49 O2 Sat by Pulse 96 96 Oximetry O2 Sat by Pulse Oximetry [ Anterior Bilateral Throughout] O2 Sat by Pulse Oximetry [ Throughout] 03/14/19 03/14/19 03/14/19 12:31 12:45 13:00 Temperature Pulse Rate 91 H 91 H 91 H Pulse Rate [ From Monitor] Respiratory 30 H 32 H 32 H Rate Blood Pressure 127/49 129/54 110/53 O2 Sat by Pulse 98 99 98 Oximetry O2 Sat by Pulse Oximetry [ Anterior Bilateral Throughout] O2 Sat by Pulse Oximetry [ Throughout] 03/14/19 03/14/19 03/14/19 13:15 13:30 13:31 Temperature 99.9 F H Pulse Rate 92 H 81 91 H Pulse Rate [ From Monitor] Respiratory 33 H 22 29 H Rate Blood Pressure 110/31 115/28 111/27 O2 Sat by Pulse 98 98 Oximetry O2 Sat by Pulse 98 Oximetry [ Anterior Bilateral Throughout] O2 Sat by Pulse 98 Oximetry [ Throughout] 03/14/19 03/14/19 03/14/19 13:45 14:00 14:15 Temperature Pulse Rate 89 91 H 91 H Pulse Rate [ From Monitor] Respiratory 31 H 30 H 33 H Rate Blood Pressure 109/47 127/38 111/27 O2 Sat by Pulse 100 98 98 Oximetry O2 Sat by Pulse Oximetry [ Anterior Bilateral Throughout] O2 Sat by Pulse Oximetry [ Throughout] 03/14/19 03/14/19 03/14/19 14:30 14:45 15:00 Temperature Pulse Rate 88 92 H 89 Pulse Rate [ From Monitor] Respiratory 32 H 36 H 33 H Rate Blood Pressure 134/35 134/35 129/30 O2 Sat by Pulse 98 98 98 Oximetry O2 Sat by Pulse Oximetry [ Anterior Bilateral Throughout] O2 Sat by Pulse Oximetry [ Throughout] General appearance: Present: mild distress, well-nourished - EENT Eyes: PERRL, EOM intact ENT: hearing intact, clear oral mucosa Ears: bilateral: normal - Neck Neck: supple, normal ROM - Respiratory Respiratory effort: normal Respiratory: bilateral: CTA - Breasts Breasts: normal - Cardiovascular Heart rate: 78 Rhythm: regular Heart Sounds: Present: S1 & S2. Absent: gallop, rub Extremities: no ischemia, pulses intact, No edema, normal color, Full ROM - Gastrointestinal General gastrointestinal: Present: soft, non-tender, non-distended, normal bowel sounds - Genitourinary Male genitourinary: normal - Integumentary Integumentary: clear, warm, dry - Musculoskeletal Musculoskeletal: generalized weakness - Neurologic Neurologic: other (Unresponsive) - Psychiatric Psychiatric: other (Unresponsive) - Labs CBC & Chem 7: 03/14/19 13:43 03/13/19 09:11 Labs: Abnormal lab results 03/10/19 03/13/19 03/13/19 Range/Units 18:52 18:11 19:12 WBC (4.5-11.0) K/mm3 RBC (3.65-5.03) M/mm3 Hgb (11.8-15.2) gm/dl Hct (35.5-45.6) % RDW (13.2-15.2) % Plt Count (140-440) K/mm3 POC ABG pH (7.35-7.45) POC Glucose 255 H (70-105) Crossmatch See Detail See Detail 03/13/19 03/13/19 03/14/19 Range/Units 20:58 23:49 05:51 WBC (4.5-11.0) K/mm3 RBC (3.65-5.03) M/mm3 Hgb (11.8-15.2) gm/dl Hct (35.5-45.6) % RDW (13.2-15.2) % Plt Count (140-440) K/mm3 POC ABG pH 7.466 H (7.35-7.45) POC Glucose 289 H 305 H (70-105) Crossmatch 03/14/19 03/14/19 Range/Units 11:39 13:43 WBC 14.0 H (4.5-11.0) K/mm3 RBC 2.78 L (3.65-5.03) M/mm3 Hgb 8.9 L (11.8-15.2) gm/dl Hct 26.0 L D (35.5-45.6) % RDW 17.9 H (13.2-15.2) % Plt Count 42 L (140-440) K/mm3 POC ABG pH (7.35-7.45) POC Glucose 283 H (70-105) Crossmatch
--- NOTE | 2019-03-14 15:45 | Progress Note ---
Assessment and Plan s/p Cardiopulmonary arrest with ROSC Acute on chronic hypoxemic respiratory failure on MVS Severe sepsis with septic shock - Streptococcal Acute on chronic renal failure (multifactorial) Acute metabolic-toxic encephalopathy Morbid obesity h/o CAD s/p 2 stents Pancytopenia- probably secondary to sepsis and underlying chronic liver disease Type 2 DM h/o Alcohol abuse disorder - continue and complete AB's per ID rec's - follow Magnesium level (? EtOH abuse) - continue to wean levophed for MAP > 65 mmHg - TTE with EF 40-45% and diastolic dysfunction - continue Lung protective strategies - continue serial CXR's and ABG's - VAP bundle addressed - Critical care bundles addressed - Daily SATs and SBTs as odalys,erated (not tolerating well) - continue supplemental oxygen to keep O2 sats 90-92% - continue bronchodilators with pulm hygiene per RT - continue accuchecks with glycemic control per SSI for target blood glucose <1 80mg/dL - enteral nutrition as tolerated - Agitation management - Titrate sedation to RAAS 0 to -1 - Prevention of delirium, maintenance of sleep-wake cycle - Antibiotic therapy per ID - De-escalate therapy based on microbiology/HAYDER/Cultures - Trend hematologic indices - Avoid nephrotoxic agents, adjust all antibiotics and medications for CrCL and GFR - VTE ( SCDs) and Stress ulcer prophylaxis( therapeutic PPI for now) - 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 Discussed with renal service will initiate renal replacement therapy .... re-evaluate in am & prn CONDITION: CRITICAL PROGNOSIS: GUARDED CODE STATUS: FULL CODE Discussed with the Renal, ID service and with RT/RN Discussed on ICU-IDT rounds The high probability of a clinically significant, sudden or life-threatening deterioration of the [respiratory, cardiovascular, renal, neurology] system(s) required my full and direct attention, intervention and personal management. The aggregate critical care time was [33] minutes without overlap. Time includes spent on; [x] Data Review and interpretation [x] Patient assessment and monitoring of vital signs [x] Documentation [x] Medication orders and management Subjective Date of service: 03/14/19 Principal diagnosis: s/p cardiac arrest; acute hypoxemic resp failure; ISMAEL; hyperkalemia, Sepsis Interval history: Patient is seen today for: s/p cardiopulmonary arrest, acute hypoxemic respiratory failure, ISMAEL, Severe hyperkalemia, Severe sepsis Seen and examined at bedside; 24hour events reviewed; nursing and respiratory care staff consulted; no adverse overnight events reported to me; resting peacefully in bed; tenuously tolerating PSV trials; AMS is persistent; No N/V/F/C Objective Vital Signs - 12hr 03/14/19 03/14/19 03/14/19 03:45 04:00 04:01 Temperature 99.3 F Pulse Rate 85 86 88 Pulse Rate [ 88 From Monitor] Respiratory 22 23 23 Rate Blood Pressure 119/40 116/33 O2 Sat by Pulse 98 98 98 Oximetry O2 Sat by Pulse Oximetry [ Anterior Bilateral Throughout] O2 Sat by Pulse Oximetry [ Throughout] 03/14/19 03/14/19 03/14/19 04:15 04:30 04:45 Temperature Pulse Rate 85 86 86 Pulse Rate [ From Monitor] Respiratory 20 22 22 Rate Blood Pressure 107/50 115/53 122/48 O2 Sat by Pulse 98 99 98 Oximetry O2 Sat by Pulse Oximetry [ Anterior Bilateral Throughout] O2 Sat by Pulse Oximetry [ Throughout] 03/14/19 03/14/19 03/14/19 05:00 05:15 05:31 Temperature Pulse Rate 86 85 86 Pulse Rate [ From Monitor] Respiratory 23 20 21 Rate Blood Pressure 116/49 125/47 114/33 O2 Sat by Pulse 98 99 98 Oximetry O2 Sat by Pulse Oximetry [ Anterior Bilateral Throughout] O2 Sat by Pulse Oximetry [ Throughout] 03/14/19 03/14/19 03/14/19 05:45 06:00 06:15 Temperature Pulse Rate 87 88 86 Pulse Rate [ From Monitor] Respiratory 21 23 22 Rate Blood Pressure 129/48 112/15 127/56 O2 Sat by Pulse 98 97 98 Oximetry O2 Sat by Pulse Oximetry [ Anterior Bilateral Throughout] O2 Sat by Pulse Oximetry [ Throughout] 03/14/19 03/14/19 03/14/19 06:30 06:45 07:00 Temperature Pulse Rate 86 87 88 Pulse Rate [ From Monitor] Respiratory 22 22 25 H Rate Blood Pressure 131/42 128/44 126/65 O2 Sat by Pulse 98 98 98 Oximetry O2 Sat by Pulse Oximetry [ Anterior Bilateral Throughout] O2 Sat by Pulse Oximetry [ Throughout] 03/14/19 03/14/19 03/14/19 07:15 07:30 07:40 Temperature Pulse Rate 91 H 88 94 H Pulse Rate [ From Monitor] Respiratory 24 24 Rate Blood Pressure 116/40 131/48 131/48 O2 Sat by Pulse 98 98 97 Oximetry O2 Sat by Pulse Oximetry [ Anterior Bilateral Throughout] O2 Sat by Pulse Oximetry [ Throughout] 03/14/19 03/14/19 03/14/19 07:44 07:45 08:00 Temperature 99.7 F H Pulse Rate 92 H 91 H 90 Pulse Rate [ 88 From Monitor] Respiratory 27 H 26 H 25 H Rate Blood Pressure 131/48 136/47 147/42 O2 Sat by Pulse 97 97 97 Oximetry O2 Sat by Pulse Oximetry [ Anterior Bilateral Throughout] O2 Sat by Pulse Oximetry [ Throughout] 03/14/19 03/14/19 03/14/19 08:15 08:30 08:45 Temperature Pulse Rate 91 H 91 H 91 H Pulse Rate [ From Monitor] Respiratory 26 H 27 H 28 H Rate Blood Pressure 147/42 133/70 143/55 O2 Sat by Pulse 97 97 97 Oximetry O2 Sat by Pulse Oximetry [ Anterior Bilateral Throughout] O2 Sat by Pulse Oximetry [ Throughout] 03/14/19 03/14/19 03/14/19 09:00 09:15 09:30 Temperature Pulse Rate 90 93 H 95 H Pulse Rate [ From Monitor] Respiratory 27 H 28 H 28 H Rate Blood Pressure 126/69 126/69 123/39 O2 Sat by Pulse 97 96 96 Oximetry O2 Sat by Pulse Oximetry [ Anterior Bilateral Throughout] O2 Sat by Pulse Oximetry [ Throughout] 03/14/19 03/14/19 03/14/19 09:45 10:00 10:15 Temperature 99.7 F H Pulse Rate 93 H 95 H 91 H Pulse Rate [ From Monitor] Respiratory 28 H 28 H 29 H Rate Blood Pressure 116/39 127/34 127/34 O2 Sat by Pulse 97 97 98 Oximetry O2 Sat by Pulse 98 Oximetry [ Anterior Bilateral Throughout] O2 Sat by Pulse 98 Oximetry [ Throughout] 03/14/19 03/14/19 03/14/19 10:30 10:45 11:00 Temperature Pulse Rate 94 H 90 96 H Pulse Rate [ From Monitor] Respiratory 30 H 28 H 28 H Rate Blood Pressure 137/45 137/45 146/43 O2 Sat by Pulse 99 98 99 Oximetry O2 Sat by Pulse Oximetry [ Anterior Bilateral Throughout] O2 Sat by Pulse Oximetry [ Throughout] 03/14/19 03/14/19 03/14/19 11:15 11:30 11:45 Temperature Pulse Rate 98 H 95 H 97 H Pulse Rate [ From Monitor] Respiratory 26 H 28 H 29 H Rate Blood Pressure 146/43 151/64 151/64 O2 Sat by Pulse 98 97 98 Oximetry O2 Sat by Pulse Oximetry [ Anterior Bilateral Throughout] O2 Sat by Pulse Oximetry [ Throughout] 03/14/19 03/14/19 03/14/19 12:00 12:15 12:30 Temperature 100.5 F H Pulse Rate 95 H 95 H 91 H Pulse Rate [ From Monitor] Respiratory 30 H 29 H Rate Blood Pressure 153/51 151/64 127/49 O2 Sat by Pulse 96 96 Oximetry O2 Sat by Pulse Oximetry [ Anterior Bilateral Throughout] O2 Sat by Pulse Oximetry [ Throughout] 03/14/19 03/14/19 03/14/19 12:31 12:45 13:00 Temperature Pulse Rate 91 H 91 H 91 H Pulse Rate [ From Monitor] Respiratory 30 H 32 H 32 H Rate Blood Pressure 127/49 129/54 110/53 O2 Sat by Pulse 98 99 98 Oximetry O2 Sat by Pulse Oximetry [ Anterior Bilateral Throughout] O2 Sat by Pulse Oximetry [ Throughout] 03/14/19 03/14/19 03/14/19 13:15 13:30 13:31 Temperature 99.9 F H Pulse Rate 92 H 81 91 H Pulse Rate [ From Monitor] Respiratory 33 H 22 29 H Rate Blood Pressure 110/31 115/28 111/27 O2 Sat by Pulse 98 98 Oximetry O2 Sat by Pulse 98 Oximetry [ Anterior Bilateral Throughout] O2 Sat by Pulse 98 Oximetry [ Throughout] 03/14/19 03/14/19 03/14/19 13:45 14:00 14:15 Temperature Pulse Rate 89 91 H 91 H Pulse Rate [ From Monitor] Respiratory 31 H 30 H 33 H Rate Blood Pressure 109/47 127/38 111/27 O2 Sat by Pulse 100 98 98 Oximetry O2 Sat by Pulse Oximetry [ Anterior Bilateral Throughout] O2 Sat by Pulse Oximetry [ Throughout] 03/14/19 03/14/19 03/14/19 14:30 14:45 15:00 Temperature Pulse Rate 88 92 H 89 Pulse Rate [ From Monitor] Respiratory 32 H 36 H 33 H Rate Blood Pressure 134/35 134/35 129/30 O2 Sat by Pulse 98 98 98 Oximetry O2 Sat by Pulse Oximetry [ Anterior Bilateral Throughout] O2 Sat by Pulse Oximetry [ Throughout] Constitutional: no acute distress, other (m,iddle aged morbidly obese CM, normocephalic with mildly increased resp effort at rest on MVS) Eyes: non-icteric ENT: oropharynx moist, other (ETT 24 cm ASHA) Neck: supple, no lymphadenopathy, no JVD, other (large neck circumference) Effort: mildly labored Ascultation: Bilateral: diminished breath sounds, rhonchi (bases) Percussion: Bilateral: not dull Cardiovascular: regular rate and rhythm, other (No R/M) Gastrointestinal: normoactive bowel sounds, soft, non-tender, non-distended Integumentary: normal Extremities: no cyanosis, pink and warm, pulses normal, no ischemia or petechiae Neurologic: non-focal exam (grossly), pupils equal and round, unable to assess, other (Encephalopathic) Psychiatric: other (unable to assess) CBC and BMP: 03/17/19 05:30 03/17/19 05:30 ABG, PT/INR, D-dimer: ABG POC ABG pH 7.430 (7.35-7.45) 03/14/19 04:15 POC ABG pCO2 38.5 (35-45) 03/14/19 04:15 POC ABG pO2 101 (80-105) 03/14/19 04:15 POC ABG HCO3 25.5 (22-26 mml/L) 03/14/19 04:15 POC ABG Total CO2 27 (23-27mmol/L) 03/14/19 04:15 POC ABG O2 Sat 98 03/14/19 04:15 PT/INR, D-dimer PT 14.4 Sec. (12.2-14.9) 03/10/19 17:57 INR 1.15 (0.87-1.13) H 03/10/19 17:57 Abnormal lab findings: Abnormal Labs 03/10/19 03/10/19 03/10/19 17:57 17:57 17:57 WBC 1.2 L* RBC 2.46 L Hgb 7.9 L Hct 23.2 L MCV RDW 18.2 H Plt Count 47 L [place] # 0.9 H Seg Neuts % (Manual) 6.0 L Lymphocytes % (Manual) 74.0 H Monocytes % (Manual) 20.0 H Nucleated RBC % Seg Neutrophils # 0.1 L Seg Neutrophils # Man 0.1 L Lymphocytes # (Manual) 0.9 L Monocytes # (Manual) INR POC ABG pH POC ABG pCO2 POC ABG pO2 Potassium Carbon Dioxide BUN 46 H Creatinine 2.9 H Glucose 200 H POC Glucose Lactic Acid 2.50 H* Calcium 7.6 L Total Bilirubin AST ALT Total Creatine Kinase CK-MB (CK-2) Troponin T Total Protein Albumin 3.2 L Cholesterol LDL Cholesterol Direct HDL Cholesterol Urine WBC (Auto) Crossmatch 03/10/19 03/10/19 03/10/19 17:57 18:01 18:52 WBC RBC Hgb Hct MCV RDW Plt Count [place] # Seg Neuts % (Manual) Lymphocytes % (Manual) Monocytes % (Manual) Nucleated RBC % Seg Neutrophils # Seg Neutrophils # Man Lymphocytes # (Manual) Monocytes # (Manual) INR 1.15 H POC ABG pH POC ABG pCO2 POC ABG pO2 Potassium Carbon Dioxide BUN Creatinine Glucose POC Glucose 234 H Lactic Acid Calcium Total Bilirubin AST ALT Total Creatine Kinase CK-MB (CK-2) Troponin T Total Protein Albumin Cholesterol LDL Cholesterol Direct HDL Cholesterol Urine WBC (Auto) Crossmatch See Detail 03/10/19 03/10/19 03/10/19 19:16 20:56 21:32 WBC RBC Hgb Hct MCV RDW Plt Count [place] # Seg Neuts % (Manual) Lymphocytes % (Manual) Monocytes % (Manual) Nucleated RBC % Seg Neutrophils # Seg Neutrophils # Man Lymphocytes # (Manual) Monocytes # (Manual) INR POC ABG pH 7.274 L POC ABG pCO2 46.6 H POC ABG pO2 315 H Potassium Carbon Dioxide BUN Creatinine Glucose POC Glucose Lactic Acid 2.80 H* Calcium Total Bilirubin AST ALT Total Creatine Kinase CK-MB (CK-2) Troponin T Total Protein Albumin Cholesterol LDL Cholesterol Direct HDL Cholesterol Urine WBC (Auto) Crossmatch 03/10/19 03/10/19 03/11/19 23:06 23:29 00:50 WBC RBC Hgb Hct MCV RDW Plt Count [place] # Seg Neuts % (Manual) Lymphocytes % (Manual) Monocytes % (Manual) Nucleated RBC % Seg Neutrophils # Seg Neutrophils # Man Lymphocytes # (Manual) Monocytes # (Manual) INR POC ABG pH POC ABG pCO2 POC ABG pO2 Potassium Carbon Dioxide BUN Creatinine Glucose POC Glucose 237 H Lactic Acid Calcium Total Bilirubin AST ALT Total Creatine Kinase 513 H CK-MB (CK-2) Troponin T 0.075 H Total Protein Albumin Cholesterol < 4 L LDL Cholesterol Direct 4 L HDL Cholesterol < 3 L Urine WBC (Auto) 24.0 H Crossmatch 03/11/19 03/11/19 03/11/19 05:01 05:01 06:06 WBC RBC 2.29 L Hgb 7.3 L Hct 22.2 L MCV 97 H RDW 18.2 H Plt Count 40 L [place] # Seg Neuts % (Manual) 8.0 L Lymphocytes % (Manual) 67.0 H Monocytes % (Manual) 24.0 H Nucleated RBC % 5.0 H Seg Neutrophils # Seg Neutrophils # Man 0.4 L Lymphocytes # (Manual) Monocytes # (Manual) 1.2 H INR POC ABG pH POC ABG pCO2 32.8 L POC ABG pO2 Potassium 5.3 H Carbon Dioxide 19 L BUN 49 H Creatinine 3.7 H Glucose 203 H POC Glucose Lactic Acid Calcium 7.1 L Total Bilirubin AST ALT Total Creatine Kinase CK-MB (CK-2) Troponin T Total Protein Albumin Cholesterol LDL Cholesterol Direct HDL Cholesterol Urine WBC (Auto) Crossmatch 03/11/19 03/11/19 03/11/19 06:07 06:35 13:07 WBC RBC Hgb Hct MCV RDW Plt Count [place] # Seg Neuts % (Manual) Lymphocytes % (Manual) Monocytes % (Manual) Nucleated RBC % Seg Neutrophils # Seg Neutrophils # Man Lymphocytes # (Manual) Monocytes # (Manual) INR POC ABG pH POC ABG pCO2 POC ABG pO2 Potassium Carbon Dioxide BUN Creatinine Glucose POC Glucose 209 H 185 H Lactic Acid Calcium Total Bilirubin AST ALT Total Creatine Kinase 1156 H CK-MB (CK-2) 4.6 H Troponin T 0.077 H Total Protein Albumin Cholesterol LDL Cholesterol Direct HDL Cholesterol Urine WBC (Auto) Crossmatch 03/11/19 03/11/19 03/12/19 18:36 23:45 04:25 WBC RBC Hgb Hct MCV RDW Plt Count [place] # Seg Neuts % (Manual) Lymphocytes % (Manual) Monocytes % (Manual) Nucleated RBC % Seg Neutrophils # Seg Neutrophils # Man Lymphocytes # (Manual) Monocytes # (Manual) INR POC ABG pH 7.320 L POC ABG pCO2 POC ABG pO2 Potassium Carbon Dioxide BUN Creatinine Glucose POC Glucose 126 H 137 H Lactic Acid Calcium Total Bilirubin AST ALT Total Creatine Kinase CK-MB (CK-2) Troponin T Total Protein Albumin Cholesterol LDL Cholesterol Direct HDL Cholesterol Urine WBC (Auto) Crossmatch 03/12/19 03/12/19 03/12/19 05:06 05:06 05:57 WBC RBC 2.24 L Hgb 7.2 L Hct 21.9 L MCV 98 H RDW 18.3 H Plt Count 38 L [place] # Seg Neuts % (Manual) 4.0 L Lymphocytes % (Manual) Monocytes % (Manual) 69.0 H Nucleated RBC % Seg Neutrophils # Seg Neutrophils # Man 0.3 L Lymphocytes # (Manual) Monocytes # (Manual) 4.9 H INR POC ABG pH POC ABG pCO2 POC ABG pO2 Potassium 6.6 H* D Carbon Dioxide 17 L BUN 66 H Creatinine 5.6 H D Glucose 149 H POC Glucose 165 H Lactic Acid Calcium 6.5 L Total Bilirubin 1.90 H AST 782 H ALT 382 H Total Creatine Kinase CK-MB (CK-2) Troponin T Total Protein 5.7 L Albumin 2.7 L Cholesterol LDL Cholesterol Direct HDL Cholesterol Urine WBC (Auto) Crossmatch 03/12/19 03/12/19 03/12/19 07:19 15:24 18:55 WBC RBC Hgb Hct MCV RDW Plt Count [place] # Seg Neuts % (Manual) Lymphocytes % (Manual) Monocytes % (Manual) Nucleated RBC % Seg Neutrophils # Seg Neutrophils # Man Lymphocytes # (Manual) Monocytes # (Manual) INR POC ABG pH POC ABG pCO2 POC ABG pO2 Potassium 6.6 H* Carbon Dioxide BUN Creatinine Glucose POC Glucose 167 H 212 H Lactic Acid Calcium Total Bilirubin AST ALT Total Creatine Kinase CK-MB (CK-2) Troponin T Total Protein Albumin Cholesterol LDL Cholesterol Direct HDL Cholesterol Urine WBC (Auto) Crossmatch 03/12/19 03/13/19 03/13/19 23:45 05:37 09:11 WBC RBC Hgb Hct MCV RDW Plt Count [place] # Seg Neuts % (Manual) Lymphocytes % (Manual) Monocytes % (Manual) Nucleated RBC % Seg Neutrophils # Seg Neutrophils # Man Lymphocytes # (Manual) Monocytes # (Manual) INR POC ABG pH POC ABG pCO2 POC ABG pO2 Potassium Carbon Dioxide BUN 52 H Creatinine 5.5 H Glucose 235 H POC Glucose 197 H 250 H Lactic Acid Calcium 6.2 L Total Bilirubin AST ALT Total Creatine Kinase CK-MB (CK-2) Troponin T Total Protein Albumin Cholesterol LDL Cholesterol Direct HDL Cholesterol Urine WBC (Auto) Crossmatch 03/13/19 03/13/19 03/13/19 09:11 11:06 12:38 WBC RBC 1.99 L 2.07 L Hgb 6.4 L 6.6 L Hct 18.7 L* 19.6 L* MCV 95 H RDW 18.5 H 18.5 H Plt Count 36 L 33 L [place] # Seg Neuts % (Manual) Lymphocytes % (Manual) Monocytes % (Manual) Nucleated RBC % Seg Neutrophils # Seg Neutrophils # Man Lymphocytes # (Manual) Monocytes # (Manual) INR POC ABG pH POC ABG pCO2 POC ABG pO2 Potassium Carbon Dioxide BUN Creatinine Glucose POC Glucose 268 H Lactic Acid Calcium Total Bilirubin AST ALT Total Creatine Kinase CK-MB (CK-2) Troponin T Total Protein Albumin Cholesterol LDL Cholesterol Direct HDL Cholesterol Urine WBC (Auto) Crossmatch 03/13/19 03/13/19 03/13/19 18:11 19:12 20:58 WBC RBC Hgb Hct MCV RDW Plt Count [place] # Seg Neuts % (Manual) Lymphocytes % (Manual) Monocytes % (Manual) Nucleated RBC % Seg Neutrophils # Seg Neutrophils # Man Lymphocytes # (Manual) Monocytes # (Manual) INR POC ABG pH 7.466 H POC ABG pCO2 POC ABG pO2 Potassium Carbon Dioxide BUN Creatinine Glucose POC Glucose 255 H Lactic Acid Calcium Total Bilirubin AST ALT Total Creatine Kinase CK-MB (CK-2) Troponin T Total Protein Albumin Cholesterol LDL Cholesterol Direct HDL Cholesterol Urine WBC (Auto) Crossmatch See Detail 03/13/19 03/14/19 03/14/19 23:49 05:51 11:39 WBC RBC Hgb Hct MCV RDW Plt Count [place] # Seg Neuts % (Manual) Lymphocytes % (Manual) Monocytes % (Manual) Nucleated RBC % Seg Neutrophils # Seg Neutrophils # Man Lymphocytes # (Manual) Monocytes # (Manual) INR POC ABG pH POC ABG pCO2 POC ABG pO2 Potassium Carbon Dioxide BUN Creatinine Glucose POC Glucose 289 H 305 H 283 H Lactic Acid Calcium Total Bilirubin AST ALT Total Creatine Kinase CK-MB (CK-2) Troponin T Total Protein Albumin Cholesterol LDL Cholesterol Direct HDL Cholesterol Urine WBC (Auto) Crossmatch 03/14/19 13:43 WBC 14.0 H RBC 2.78 L Hgb 8.9 L Hct 26.0 L D MCV RDW 17.9 H Plt Count 42 L [place] # Seg Neuts % (Manual) Lymphocytes % (Manual) Monocytes % (Manual) Nucleated RBC % Seg Neutrophils # Seg Neutrophils # Man Lymphocytes # (Manual) Monocytes # (Manual) INR POC ABG pH POC ABG pCO2 POC ABG pO2 Potassium Carbon Dioxide BUN Creatinine Glucose POC Glucose Lactic Acid Calcium Total Bilirubin AST ALT Total Creatine Kinase CK-MB (CK-2) Troponin T Total Protein Albumin Cholesterol LDL Cholesterol Direct HDL Cholesterol Urine WBC (Auto) Crossmatch Chest x-ray: image reviewed (mild interstitial edema; ETT in good position) Allied health notes reviewed: nursing
[2019-03-14 16:02] LABS: Basophils % (Manual) 0 % (0.0-1.8); Eosinophils % (Manual) 0 % (0.0-4.3); Total Cells Counted 100
[2019-03-14 16:03] LABS: Anisocytosis 1+; Hypochromasia 2+; Ovalocytes 1+; Poikilocytosis 2+
[2019-03-14 16:04] LABS: Platelet Estimate Appears Decreased; Schistocytes 1+
[2019-03-14] MEDS: SODIUM CHLORIDE FLUSH SYRINGE 10 ML IV SCH ×2 (18:47→22:34)
--- NOTE | 2019-03-14 20:20 | Ultrasound Report ---
PROCEDURE: US RENAL BILAT TECHNIQUE: HISTORY: ISMAEL COMPARISONS: FINDINGS: Right kidney is 13.7 x 6.4 x 7.4 cm. Cortical thickness 2.0 cm. No evidence for hydronephrosis. There is normal renal echogenicity Left kidney is 12.0 x 5.8 x 6.2 cm. Cortex 1.1 cm. There is normal renal echogenicity No evidence for hydronephrosis bilaterally. Exam is somewhat limited due to patient body habitus IMPRESSION: No acute abnormality identified. This document is electronically signed by Dandre Milligan MD., March 14 2019 08:18:22 PM ET
[2019-03-15] MEDS: HumaLOG SUB-Q SCH ×4 (00:49→17:08)
[2019-03-15] MEDS: TYLENOL PO PRN (00:49)
[2019-03-15] MEDS: CLEOCIN 900 MG/50 mL 900 MG/50 ML BAG IV SCH ×3 (00:58→17:09)
[2019-03-15] MEDS: LEVOPHED DRIP 4 MG/NS 250 ML 4 MG/250 ML BAG IV SCH (02:58)
--- NOTE | 2019-03-15 05:57 | XRay Report ---
PROCEDURE: XR CHEST 1V AP TECHNIQUE: Chest radiograph single view. HISTORY: follow up respiratory failure COMPARISONS: None . FINDINGS: Single frontal view of the chest was acquired and compared to the prior examination of March 14. There is cardiomegaly. There is an endotracheal tube with its tip in appropriate position. There is a nasogastric tube the tip of which is not well seen which appears likely to terminate in the gastric fundus. The pulmonary vasculature is within normal limits. There is no consolidative infiltrate. IMPRESSION: Stable cardiomegaly This document is electronically signed by Jett Cotton MD., March 15 2019 05:55:45 AM ET
[2019-03-15 07:52] LABS: Albumin 2.4 g/dL (3.9-5); Calcium 7.2 mg/dL (8.4-10.2)
--- NOTE | 2019-03-15 07:59 | Progress Note ---
Assessment and Plan -s/p Cardiopulmonary arrest with ROSC -Acute on chronic hypoxemic respiratory failure on MVS -Severe sepsis with septic shock - Streptococcal -Acute on chronic renal failure (multifactorial) -Acute metabolic-toxic encephalopathy -Morbid obesity -h/o CAD s/p 2 stents -Pancytopenia- probably secondary to sepsis and underlying chronic liver disease -Type 2 DM -h/o Alcohol abuse disorder -EEG pending -Stress dose steroids for possible sepsis induced relative adrenal insufficiency -Lung protective strategies -Serial CXR and ABG -VAP bundle addressed -Critical care bundles addressed -Daily SATs and SBTs as tolerated -Supplemental oxygen to keep O2 sats 90-92% -Bronchodilators -Accuchecks with glycemic control. Target blood glucose <180mg/dL -Enteric nutrition with aspiration precautions, HOB>40 -Agitation management -Titrate sedation to RAAS 0 to -1 -Prevention of delirium, maintenance of sleep-wake cycle -Antibiotic therapy per ID -Trend hematologic indices -Avoid nephrotoxic agents, adjust all antibiotics and medications for CrCL and GFR -VTE ( SCDs) and Stress ulcer prophylaxis CONDITION: CRITICAL PROGNOSIS: GUARDED CODE STATUS: FULL CODE Discussed extensively with the patient's daughter and his sister who were at the bedside. All their questions were answered. Discussed with the Renal service and with RT/RN The high probability of a clinically significant, sudden or life-threatening de terioration of the [respiratory, cardiovascular, renal, neurology] system(s) required my full and direct attention, intervention and personal management. The aggregate critical care time was [35 ] minutes without overlap. Time includes spent on; [x] Data Review and interpretation [x] Patient assessment and monitoring of vital signs [x] Documentation [x] Medication orders and management Subjective Date of service: 03/15/19 Principal diagnosis: severe sepsis Interval history: Patient is seen today for: s/p cardiopulmonary arrest, acute hypoxemic respiratory failure, ISMAEL, Severe hyperkalemia, Severe sepsis; ISMAEL onCKD on HD Seen and examined at bedside; 24hour events reviewed; nursing and respiratory care staff consulted; no adverse overnight events reported to me; vitals, labs, medications, chart reviewed. Temperature spike to 100.4, no vomiting, opens eyes spontaneously Remains critically ill. On full mechanical ventilatory support AC 12/450/6/35% ABG 7.50/34/86/26 Off bicarbonate infusion s/p 3 sessions of daily HD. Tolerated PSV trials yesterday ETT 7.5cm at 23cm at the lip. Off fentanyl infusion, remains unresponsive Continues to require vasopressor support Daughter and sister at the bedside. Discussed with RT/RN at the bedside Objective Vital Signs - 12hr 03/14/19 03/14/19 03/14/19 20:00 20:15 20:30 Temperature Pulse Rate 86 85 86 Pulse Rate [ 86 From Monitor] Respiratory 30 H 30 H 29 H Rate Blood Pressure 118/43 140/50 138/25 O2 Sat by Pulse 98 97 98 Oximetry 03/14/19 03/14/19 03/14/19 20:46 21:00 21:15 Temperature Pulse Rate 94 H 86 87 Pulse Rate [ From Monitor] Respiratory 29 H 30 H 29 H Rate Blood Pressure 103/33 108/45 121/46 O2 Sat by Pulse 98 99 100 Oximetry 03/14/19 03/14/19 03/14/19 21:30 21:46 22:00 Temperature Pulse Rate 87 86 88 Pulse Rate [ From Monitor] Respiratory 27 H 27 H 29 H Rate Blood Pressure 105/51 114/39 103/59 O2 Sat by Pulse 100 100 98 Oximetry 03/14/19 03/14/19 03/14/19 22:15 22:30 22:44 Temperature Pulse Rate 87 95 H 91 H Pulse Rate [ From Monitor] Respiratory 28 H 23 Rate Blood Pressure 113/42 112/51 O2 Sat by Pulse 96 98 Oximetry 03/14/19 03/14/19 03/14/19 22:46 23:00 23:10 Temperature Pulse Rate 91 H 91 H 90 Pulse Rate [ From Monitor] Respiratory 28 H 29 H Rate Blood Pressure 104/22 118/25 118/25 O2 Sat by Pulse 99 98 98 Oximetry 03/14/19 03/14/19 03/14/19 23:16 23:30 23:46 Temperature Pulse Rate 92 H 93 H 87 Pulse Rate [ From Monitor] Respiratory 30 H 31 H 30 H Rate Blood Pressure 118/25 104/22 95/25 O2 Sat by Pulse 98 97 97 Oximetry 03/15/19 03/15/19 03/15/19 00:00 00:15 00:30 Temperature Pulse Rate 83 84 81 Pulse Rate [ From Monitor] Respiratory 28 H 28 H 27 H Rate Blood Pressure 89/33 95/41 87/39 O2 Sat by Pulse 96 98 98 Oximetry 03/15/19 03/15/19 03/15/19 00:42 00:45 00:46 Temperature 101.1 F H Pulse Rate 89 Pulse Rate [ 81 From Monitor] Respiratory 28 H 28 H Rate Blood Pressure 118/64 O2 Sat by Pulse 98 99 Oximetry 03/15/19 03/15/19 03/15/19 01:00 01:16 01:30 Temperature Pulse Rate 87 87 78 Pulse Rate [ From Monitor] Respiratory 27 H 25 H 28 H Rate Blood Pressure 95/50 94/19 97/21 O2 Sat by Pulse 97 97 100 Oximetry 03/15/19 03/15/19 03/15/19 01:45 02:00 02:15 Temperature Pulse Rate 76 75 74 Pulse Rate [ From Monitor] Respiratory 25 H 26 H 25 H Rate Blood Pressure 117/29 111/29 118/34 O2 Sat by Pulse 99 99 99 Oximetry 03/15/19 03/15/19 03/15/19 02:30 02:45 03:00 Temperature Pulse Rate 73 74 75 Pulse Rate [ From Monitor] Respiratory 25 H 25 H 25 H Rate Blood Pressure 113/26 101/32 122/54 O2 Sat by Pulse 98 98 98 Oximetry 03/15/19 03/15/19 03/15/19 03:15 03:30 03:45 Temperature Pulse Rate 77 77 80 Pulse Rate [ From Monitor] Respiratory 24 25 H 25 H Rate Blood Pressure 132/52 132/52 145/46 O2 Sat by Pulse 97 97 98 Oximetry 03/15/19 03/15/19 03/15/19 03:48 04:00 04:16 Temperature 98.9 F Pulse Rate 80 85 84 Pulse Rate [ 85 From Monitor] Respiratory 28 H 27 H Rate Blood Pressure 145/46 145/46 103/20 O2 Sat by Pulse 97 97 98 Oximetry 03/15/19 03/15/19 03/15/19 04:30 04:45 05:00 Temperature Pulse Rate 84 85 83 Pulse Rate [ From Monitor] Respiratory 26 H 27 H 27 H Rate Blood Pressure 121/36 107/38 98/34 O2 Sat by Pulse 98 98 99 Oximetry 03/15/19 03/15/19 03/15/19 05:15 05:30 05:45 Temperature Pulse Rate 85 82 81 Pulse Rate [ From Monitor] Respiratory 26 H 26 H 25 H Rate Blood Pressure 100/25 92/31 121/46 O2 Sat by Pulse 98 98 99 Oximetry 03/15/19 03/15/19 03/15/19 06:00 06:15 06:30 Temperature Pulse Rate 81 77 78 Pulse Rate [ From Monitor] Respiratory 25 H 26 H 25 H Rate Blood Pressure 119/46 125/41 141/56 O2 Sat by Pulse 99 99 98 Oximetry 03/15/19 03/15/19 03/15/19 06:45 07:00 07:16 Temperature Pulse Rate 82 82 82 Pulse Rate [ From Monitor] Respiratory 25 H 25 H 26 H Rate Blood Pressure 120/51 120/51 132/64 O2 Sat by Pulse 98 98 98 Oximetry Constitutional: no acute distress, other (m,iddle aged morbidly obese CM, normocephalic with mildly increased resp effort at rest on MVS) Eyes: non-icteric ENT: oropharynx moist, other (ETT 7.5 at 23 cm at the lip) Neck: supple, no lymphadenopathy, no JVD, other (large neck circumference) Effort: mildly labored Ascultation: Bilateral: diminished breath sounds, rhonchi (bases) Percussion: Bilateral: not dull Cardiovascular: regular rate and rhythm, other (No R/M) Gastrointestinal: normoactive bowel sounds, soft, non-tender, non-distended Integumentary: normal Extremities: no cyanosis, pink and warm, pulses normal, no ischemia or petechiae Neurologic: non-focal exam (grossly), pupils equal and round, unable to assess, other (Encephalopathic) Psychiatric: other (unable to assess) CBC and BMP: 03/15/19 07:15 03/15/19 07:15 ABG, PT/INR, D-dimer: ABG POC ABG pH 7.497 (7.35-7.45) H 03/15/19 04:24 POC ABG pCO2 34.0 (35-45) L 03/15/19 04:24 POC ABG pO2 86 (80-105) 03/15/19 04:24 POC ABG HCO3 26.3 (22-26 mml/L) 03/15/19 04:24 POC ABG Total CO2 27 (23-27mmol/L) 03/15/19 04:24 POC ABG O2 Sat 97 03/15/19 04:24 PT/INR, D-dimer PT 14.4 Sec. (12.2-14.9) 03/10/19 17:57 INR 1.15 (0.87-1.13) H 03/10/19 17:57 Abnormal lab findings: Abnormal Labs 03/10/19 03/10/19 03/10/19 17:57 17:57 17:57 WBC 1.2 L* RBC 2.46 L Hgb 7.9 L Hct 23.2 L MCV RDW 18.2 H Plt Count 47 L Terrell # 0.9 H Seg Neuts % (Manual) 6.0 L Lymphocytes % (Manual) 74.0 H Monocytes % (Manual) 20.0 H Nucleated RBC % Seg Neutrophils # 0.1 L Seg Neutrophils # Man 0.1 L Lymphocytes # (Manual) 0.9 L Monocytes # (Manual) INR POC ABG pH POC ABG pCO2 POC ABG pO2 Potassium Chloride Carbon Dioxide BUN 46 H Creatinine 2.9 H Glucose 200 H POC Glucose Lactic Acid 2.50 H* Calcium 7.6 L Total Bilirubin AST ALT Total Creatine Kinase CK-MB (CK-2) Troponin T Total Protein Albumin 3.2 L Cholesterol LDL Cholesterol Direct HDL Cholesterol Urine WBC (Auto) Crossmatch 03/10/19 03/10/19 03/10/19 17:57 18:01 18:52 WBC RBC Hgb Hct MCV RDW Plt Count Terrell # Seg Neuts % (Manual) Lymphocytes % (Manual) Monocytes % (Manual) Nucleated RBC % Seg Neutrophils # Seg Neutrophils # Man Lymphocytes # (Manual) Monocytes # (Manual) INR 1.15 H POC ABG pH POC ABG pCO2 POC ABG pO2 Potassium Chloride Carbon Dioxide BUN Creatinine Glucose POC Glucose 234 H Lactic Acid Calcium Total Bilirubin AST ALT Total Creatine Kinase CK-MB (CK-2) Troponin T Total Protein Albumin Cholesterol LDL Cholesterol Direct HDL Cholesterol Urine WBC (Auto) Crossmatch See Detail 03/10/19 03/10/19 03/10/19 19:16 20:56 21:32 WBC RBC Hgb Hct MCV RDW Plt Count Terrell # Seg Neuts % (Manual) Lymphocytes % (Manual) Monocytes % (Manual) Nucleated RBC % Seg Neutrophils # Seg Neutrophils # Man Lymphocytes # (Manual) Monocytes # (Manual) INR POC ABG pH 7.274 L POC ABG pCO2 46.6 H POC ABG pO2 315 H Potassium Chloride Carbon Dioxide BUN Creatinine Glucose POC Glucose Lactic Acid 2.80 H* Calcium Total Bilirubin AST ALT Total Creatine Kinase CK-MB (CK-2) Troponin T Total Protein Albumin Cholesterol LDL Cholesterol Direct HDL Cholesterol Urine WBC (Auto) Crossmatch 03/10/19 03/10/19 03/11/19 23:06 23:29 00:50 WBC RBC Hgb Hct MCV RDW Plt Count Ter[place] # Seg Neuts % (Manual) Lymphocytes % (Manual) Monocytes % (Manual) Nucleated RBC % Seg Neutrophils # Seg Neutrophils # Man Lymphocytes # (Manual) Monocytes # (Manual) INR POC ABG pH POC ABG pCO2 POC ABG pO2 Potassium Chloride Carbon Dioxide BUN Creatinine Glucose POC Glucose 237 H Lactic Acid Calcium Total Bilirubin AST ALT Total Creatine Kinase 513 H CK-MB (CK-2) Troponin T 0.075 H Total Protein Albumin Cholesterol < 4 L LDL Cholesterol Direct 4 L HDL Cholesterol < 3 L Urine WBC (Auto) 24.0 H Crossmatch 03/11/19 03/11/19 03/11/19 05:01 05:01 06:06 WBC RBC 2.29 L Hgb 7.3 L Hct 22.2 L MCV 97 H RDW 18.2 H Plt Count 40 L Terrell # Seg Neuts % (Manual) 8.0 L Lymphocytes % (Manual) 67.0 H Monocytes % (Manual) 24.0 H Nucleated RBC % 5.0 H Seg Neutrophils # Seg Neutrophils # Man 0.4 L Lymphocytes # (Manual) Monocytes # (Manual) 1.2 H INR POC ABG pH POC ABG pCO2 32.8 L POC ABG pO2 Potassium 5.3 H Chloride Carbon Dioxide 19 L BUN 49 H Creatinine 3.7 H Glucose 203 H POC Glucose Lactic Acid Calcium 7.1 L Total Bilirubin AST ALT Total Creatine Kinase CK-MB (CK-2) Troponin T Total Protein Albumin Cholesterol LDL Cholesterol Direct HDL Cholesterol Urine WBC (Auto) Crossmatch 03/11/19 03/11/19 03/11/19 06:07 06:35 13:07 WBC RBC Hgb Hct MCV RDW Plt Count Terrell # Seg Neuts % (Manual) Lymphocytes % (Manual) Monocytes % (Manual) Nucleated RBC % Seg Neutrophils # Seg Neutrophils # Man Lymphocytes # (Manual) Monocytes # (Manual) INR POC ABG pH POC ABG pCO2 POC ABG pO2 Potassium Chloride Carbon Dioxide BUN Creatinine Glucose POC Glucose 209 H 185 H Lactic Acid Calcium Total Bilirubin AST ALT Total Creatine Kinase 1156 H CK-MB (CK-2) 4.6 H Troponin T 0.077 H Total Protein Albumin Cholesterol LDL Cholesterol Direct HDL Cholesterol Urine WBC (Auto) Crossmatch 03/11/19 03/11/19 03/12/19 18:36 23:45 04:25 WBC RBC Hgb Hct MCV RDW Plt Count Terrell # Seg Neuts % (Manual) Lymphocytes % (Manual) Monocytes % (Manual) Nucleated RBC % Seg Neutrophils # Seg Neutrophils # Man Lymphocytes # (Manual) Monocytes # (Manual) INR POC ABG pH 7.320 L POC ABG pCO2 POC ABG pO2 Potassium Chloride Carbon Dioxide BUN Creatinine Glucose POC Glucose 126 H 137 H Lactic Acid Calcium Total Bilirubin AST ALT Total Creatine Kinase CK-MB (CK-2) Troponin T Total Protein Albumin Cholesterol LDL Cholesterol Direct HDL Cholesterol Urine WBC (Auto) Crossmatch 03/12/19 03/12/19 03/12/19 05:06 05:06 05:57 WBC RBC 2.24 L Hgb 7.2 L Hct 21.9 L MCV 98 H RDW 18.3 H Plt Count 38 L Terrell # Seg Neuts % (Manual) 4.0 L Lymphocytes % (Manual) Monocytes % (Manual) 69.0 H Nucleated RBC % Seg Neutrophils # Seg Neutrophils # Man 0.3 L Lymphocytes # (Manual) Monocytes # (Manual) 4.9 H INR POC ABG pH POC ABG pCO2 POC ABG pO2 Potassium 6.6 H* D Chloride Carbon Dioxide 17 L BUN 66 H Creatinine 5.6 H D Glucose 149 H POC Glucose 165 H Lactic Acid Calcium 6.5 L Total Bilirubin 1.90 H AST 782 H ALT 382 H Total Creatine Kinase CK-MB (CK-2) Troponin T Total Protein 5.7 L Albumin 2.7 L Cholesterol LDL Cholesterol Direct HDL Cholesterol Urine WBC (Auto) Crossmatch 03/12/19 03/12/19 03/12/19 07:19 15:24 18:55 WBC RBC Hgb Hct MCV RDW Plt Count Terrell # Seg Neuts % (Manual) Lymphocytes % (Manual) Monocytes % (Manual) Nucleated RBC % Seg Neutrophils # Seg Neutrophils # Man Lymphocytes # (Manual) Monocytes # (Manual) INR POC ABG pH POC ABG pCO2 POC ABG pO2 Potassium 6.6 H* Chloride Carbon Dioxide BUN Creatinine Glucose POC Glucose 167 H 212 H Lactic Acid Calcium Total Bilirubin AST ALT Total Creatine Kinase CK-MB (CK-2) Troponin T Total Protein Albumin Cholesterol LDL Cholesterol Direct HDL Cholesterol Urine WBC (Auto) Crossmatch 03/12/19 03/13/19 03/13/19 23:45 05:37 09:11 WBC RBC Hgb Hct MCV RDW Plt Count Ter[place] # Seg Neuts % (Manual) Lymphocytes % (Manual) Monocytes % (Manual) Nucleated RBC % Seg Neutrophils # Seg Neutrophils # Man Lymphocytes # (Manual) Monocytes # (Manual) INR POC ABG pH POC ABG pCO2 POC ABG pO2 Potassium Chloride Carbon Dioxide BUN 52 H Creatinine 5.5 H Glucose 235 H POC Glucose 197 H 250 H Lactic Acid Calcium 6.2 L Total Bilirubin AST ALT Total Creatine Kinase CK-MB (CK-2) Troponin T Total Protein Albumin Cholesterol LDL Cholesterol Direct HDL Cholesterol Urine WBC (Auto) Crossmatch 03/13/19 03/13/19 03/13/19 09:11 11:06 12:38 WBC RBC 1.99 L 2.07 L Hgb 6.4 L 6.6 L Hct 18.7 L* 19.6 L* MCV 95 H RDW 18.5 H 18.5 H Plt Count 36 L 33 L Terrell # Seg Neuts % (Manual) Lymphocytes % (Manual) Monocytes % (Manual) Nucleated RBC % Seg Neutrophils # Seg Neutrophils # Man Lymphocytes # (Manual) Monocytes # (Manual) INR POC ABG pH POC ABG pCO2 POC ABG pO2 Potassium Chloride Carbon Dioxide BUN Creatinine Glucose POC Glucose 268 H Lactic Acid Calcium Total Bilirubin AST ALT Total Creatine Kinase CK-MB (CK-2) Troponin T Total Protein Albumin Cholesterol LDL Cholesterol Direct HDL Cholesterol Urine WBC (Auto) Crossmatch 03/13/19 03/13/19 03/13/19 18:11 19:12 20:58 WBC RBC Hgb Hct MCV RDW Plt Count Ter[place] # Seg Neuts % (Manual) Lymphocytes % (Manual) Monocytes % (Manual) Nucleated RBC % Seg Neutrophils # Seg Neutrophils # Man Lymphocytes # (Manual) Monocytes # (Manual) INR POC ABG pH 7.466 H POC ABG pCO2 POC ABG pO2 Potassium Chloride Carbon Dioxide BUN Creatinine Glucose POC Glucose 255 H Lactic Acid Calcium Total Bilirubin AST ALT Total Creatine Kinase CK-MB (CK-2) Troponin T Total Protein Albumin Cholesterol LDL Cholesterol Direct HDL Cholesterol Urine WBC (Auto) Crossmatch See Detail 03/13/19 03/14/1919 23:49 05:51 11:39 WBC RBC Hgb Hct MCV RDW Plt Count [place] # Seg Neuts % (Manual) Lymphocytes % (Manual) Monocytes % (Manual) Nucleated RBC % Seg Neutrophils # Seg Neutrophils # Man Lymphocytes # (Manual) Monocytes # (Manual) INR POC ABG pH POC ABG pCO2 POC ABG pO2 Potassium Chloride Carbon Dioxide BUN Creatinine Glucose POC Glucose 289 H 305 H 283 H Lactic Acid Calcium Total Bilirubin AST ALT Total Creatine Kinase CK-MB (CK-2) Troponin T Total Protein Albumin Cholesterol LDL Cholesterol Direct HDL Cholesterol Urine WBC (Auto) Crossmatch 03/14/19 03/14/19 03/15/19 13:43 18:12 00:43 WBC 14.0 H RBC 2.78 L Hgb 8.9 L Hct 26.0 L D MCV RDW 17.9 H Plt Count 42 L Terrell # Seg Neuts % (Manual) 2.0 L Lymphocytes % (Manual) 84.0 H Monocytes % (Manual) 13.0 H Nucleated RBC % Seg Neutrophils # Seg Neutrophils # Man 0.3 L Lymphocytes # (Manual) 11.8 H Monocytes # (Manual) 1.8 H INR POC ABG pH POC ABG pCO2 POC ABG pO2 Potassium Chloride Carbon Dioxide BUN Creatinine Glucose POC Glucose 313 H 236 H Lactic Acid Calcium Total Bilirubin AST ALT Total Creatine Kinase CK-MB (CK-2) Troponin T Total Protein Albumin Cholesterol LDL Cholesterol Direct HDL Cholesterol Urine WBC (Auto) Crossmatch 03/15/19 03/15/19 03/15/19 04:24 07:15 07:24 WBC RBC Hgb Hct MCV RDW Plt Count [place] # Seg Neuts % (Manual) Lymphocytes % (Manual) Monocytes % (Manual) Nucleated RBC % Seg Neutrophils # Seg Neutrophils # Man Lymphocytes # (Manual) Monocytes # (Manual) INR POC ABG pH 7.497 H POC ABG pCO2 34.0 L POC ABG pO2 Potassium Chloride 96.0 L Carbon Dioxide BUN 47 H Creatinine 5.0 H Glucose 287 H POC Glucose 285 H Lactic Acid Calcium 7.2 L D Total Bilirubin AST 522 H ALT 474 H Total Creatine Kinase CK-MB (CK-2) Troponin T Total Protein 5.7 L Albumin 2.4 L Cholesterol LDL Cholesterol Direct HDL Cholesterol Urine WBC (Auto) Crossmatch Chest x-ray: image reviewed (ETT and LIJ catheter in position, Cardiomegally with bilateral alveolar infiltrates) Allied health notes reviewed: RT
[2019-03-15] MEDS ORDERED: NACL 0.9% 100 ML IV PRN (08:11)
--- NOTE | 2019-03-15 08:51 | Progress Note ---
Assessment and Plan Assessment and plan: 54-year-old man admitted history of hypertension, diabetes, chronic kidney disease, coronary artery disease was brought to the emergency room for evaluation of shortness of breath, generalized body aches. and daughter at bedside state that he's been sick for a month and a half. Also complaining of chills. She states that he had diarrhea for one month, got worse. + Decrease oral intake AND SOME FACIAL/ORAL PAIN Chest x-ray was ordered in the emergency room, while the cinetechnician was trying to get help to get the x-ray done, upon return to the room, the patient was not breathing. He was successfully resuscitated, intubated. He was started on vancomycin, Zosyn and levophed drip. Admitted for Acute resp failure s/p cardiac arrest and Septic shock. Same condition. Daughter reports he has had worsening leg edema and increasing abdominal girth for last 2 months. Daughter denies sick contacts. initial imaging CXR shows cardiac silhouette is enlarged. No evidence of airspace consolidation or pleural effusions. CT chest without contrast shows pericardial effusion measuring up to 1.4 cm in transverse diameter, posterior atelectasis both lungs. Minimal pleural fluid collection. CT head some indistinctness and loss of dean-white matter differentiation and indistinct visualization of the basal ganglia. Cultures: GAS bactermia Negative Influenza test Acute Hypoxic Respiratory Failure: On mechanical ventilation >96hrs. Pulmonary following Severe Sepsis with Shock: Continues on pressors. ?Peridental abscess vs Group A strep. ID following, continues on abx, No evidence of Endocarditis on TTE DM type 2 with hyperglycemia-POA: Add Lantus and adjust sliding scale Insulin ?Some Jerking activity following NGT ?seizure, ?diffused hypoxic ischemic brain injury: Consult Neurology Thrombocytopenia ?DIC secondary to underlying condition: Hold Antiplatelets S/P Cardiac arrest -PEA Rhythm, In the radiology suite shortly after pres entation to the ED. Pericardia effusion: Cardiology following CKD 4 possible progression to ESRD: CONTINUE HD, FEMO VAS CATH IN PLACE, Morbid obesity: Counselling when more awake Severe Protein calorie malnutrition: Diesel Mechanic Helper consult Acute Metabolic Encephalopathy: Neurology consulted ?ischemic brain injury Diarrhea-C,DIFF RULED OUT- FMS SHOCK LIVER-HEPATIC FAILURE- CAD-POA poor prognosis No family at bedside, case discussed with Supervisor Extrusion History Interval history: Patient seen and examiend, remains on pressors, lethargic, still with diarrhea. Hospitalist Physical - Constitutional Vitals: Temp Pulse Resp BP Pulse Ox 98.8 F 86 29 H 140/56 96 03/15/19 08:00 03/15/19 08:16 03/15/19 08:16 03/15/19 08:16 03/15/19 08:16 General appearance: Present: mild distress, well-nourished, obese - EENT Eyes: Present: PERRL ENT: hearing intact, other (ALTHOUGH LETHARGIC, STILL ATTEMPTS TO OPEN EYE ON PROMPTING) - Neck Neck: Present: supple, normal ROM - Respiratory Respiratory effort: other (ON MECHANICAL VENTILATION) Respiratory: bilateral: diminished - Cardiovascular Rhythm: irregularly irregular Heart Sounds: Present: S1 & S2, systolic murmur - Extremities Extremities: no ischemia, pulses intact, pulses symmetrical Extremity abnormal: edema (+2) Peripheral Pulses: within normal limits - Abdominal General gastrointestinal: soft, distended, normal bowel sounds - Integumentary Integumentary: Present: clear, warm, dry - Psychiatric Psychiatric: other (UNABLE TO ACCCESS) - Neurologic Neurologic: other (UNABLE TO ACCESS) Results - Labs CBC & Chem 7: 03/15/19 07:15 03/15/19 07:15 Labs: Laboratory Last Values WBC 14.0 K/mm3 (4.5-11.0) H 03/14/19 13:43 RBC 2.78 M/mm3 (3.65-5.03) L 03/14/19 13:43 Hgb 8.9 gm/dl (11.8-15.2) L 03/14/19 13:43 Hct 26.0 % (35.5-45.6) L D 03/14/19 13:43 MCV 93 fl (84-94) 03/14/19 13:43 MCH 32 pg (28-32) 03/14/19 13:43 MCHC 34 % (32-34) 03/14/19 13:43 RDW 17.9 % (13.2-15.2) H 03/14/19 13:43 Plt Count 42 K/mm3 (140-440) L 03/14/19 13:43 [place] % (Auto) Drawing Supervisor 03/14/19 13:43 Eos % (Auto) 0.4 % (0.0-4.3) 03/10/19 17:57 [place] # 0.9 K/mm3 (0.0-0.8) H 03/10/19 17:57 Eos # 0.0 K/mm3 (0.0-0.4) 03/10/19 17:57 Baso # 0.0 K/mm3 (0.0-0.1) 03/10/19 17:57 Add Manual Diff Complete 03/14/19 13:43 Total Counted 100 03/14/19 13:43 Seg Neutrophils % Drawing Supervisor 03/14/19 13:43 Seg Neuts % (Manual) 2.0 % (40.0-70.0) L 03/14/19 13:43 0 % 03/14/19 13:43 84.0 % (13.4-35.0) H 03/14/19 13:43 Reactive Lymphs % (Man) 1.0 % 03/14/19 13:43 13.0 % (0.0-7.3) H 03/14/19 13:43 0 % (0.0-4.3) 03/14/19 13:43 0 % (0.0-1.8) 03/14/19 13:43 0 % 03/14/19 13:43 0 % 03/14/19 13:43 0 % 03/14/19 13:43 0 % 03/14/19 13:43 Nucleated RBC % Not Reportable 03/14/19 13:43 Seg Neutrophils # 0.1 K/mm3 (1.8-7.7) L 03/10/19 17:57 Seg Neutrophils # Man 0.3 K/mm3 (1.8-7.7) L 03/14/19 13:43 Band Neutrophils # 0.0 K/mm3 03/14/19 13:43 11.8 K/mm3 (1.2-5.4) H 03/14/19 13:43 Abs React Lymphs (Man) 0.1 K/mm3 03/14/19 13:43 1.8 K/mm3 (0.0-0.8) H 03/14/19 13:43 0.0 K/mm3 (0.0-0.4) 03/14/19 13:43 0.0 K/mm3 (0.0-0.1) 03/14/19 13:43 0.0 K/mm3 03/14/19 13:43 0.0 K/mm3 03/14/19 13:43 0.0 K/mm3 03/14/19 13:43 Blast Cells # 0.0 K/mm3 03/14/19 13:43 Pathologist Review 03/10/19 17:57 WBC Morphology Not Reportable 03/14/19 13:43 Hypersegmented Neuts Not Reportable 03/14/19 13:43 Hyposegmented Neuts Not Reportable 03/14/19 13:43 Hypogranular Neuts Not Reportable 03/14/19 13:43 Not Reportable 03/14/19 13:43 Not Reportable 03/14/19 13:43 Not Reportable 03/14/19 13:43 Not Reportable 03/14/19 13:43 Not Reportable 03/14/19 13:43 Not Reportable 03/14/19 13:43 Appears decreased 03/14/19 13:43 Not Reportable 03/14/19 13:43 Plt Clumps, EDTA Not Reportable 03/14/19 13:43 Not Reportable 03/14/19 13:43 Not Reportable 03/14/19 13:43 Not Reportable 03/14/19 13:43 Plt Morphology Comment Not Reportable 03/14/19 13:43 RBC Morphology Not Reportable 03/14/19 13:43 Dimorphic RBCs Not Reportable 03/14/19 13:43 Not Reportable 03/14/19 13:43 2+ 03/14/19 13:43 2+ 03/14/19 13:43 1+ 03/14/19 13:43 Not Reportable 03/14/19 13:43 Not Reportable 03/14/19 13:43 Not Reportable 03/14/19 13:43 Not Reportable 03/14/19 13:43 Not Reportable 03/14/19 13:43 Not Reportable 03/14/19 13:43 Not Reportable 03/14/19 13:43 1+ 03/14/19 13:43 Not Reportable 03/14/19 13:43 Not Reportable 03/14/19 13:43 Not Reportable 03/14/19 13:43 Not Reportable 03/14/19 13:43 Not Reportable 03/14/19 13:43 Not Reportable 03/14/19 13:43 Not Reportable 03/14/19 13:43 Acanthocytes (Spur) Not Reportable 03/14/19 13:43 Rouleaux Not Reportable 03/14/19 13:43 Not Reportable 03/14/19 13:43 1+ 03/14/19 13:43 Not Reportable 03/14/19 13:43 Not Reportable 03/14/19 13:43 Hem Pathologist Commnt No 03/14/19 13:43 PT 14.4 Sec. (12.2-14.9) 03/10/19 17:57 INR 1.15 (0.87-1.13) H 03/10/19 17:57 APTT 28.8 Sec. (24.2-36.6) 03/10/19 17:57 POC ABG pH 7.497 (7.35-7.45) H 03/15/19 04:24 POC ABG pCO2 34.0 (35-45) L 03/15/19 04:24 POC ABG pO2 86 (80-105) 03/15/19 04:24 POC ABG HCO3 26.3 (22-26 mml/L) 03/15/19 04:24 POC ABG Total CO2 27 (23-27mmol/L) 03/15/19 04:24 POC ABG O2 Sat 97 03/15/19 04:24 POC ABG Base Excess 3 ((-2) - (+3)mmol/L) 03/15/19 04:24 VBG pH 7.381 (7.320-7.420) 03/10/19 17:57 35 % 03/15/19 04:24 Sodium 138 mmol/L (137-145) 03/15/19 07:15 Potassium 3.8 mmol/L (3.6-5.0) 03/15/19 07:15 Chloride 96.0 mmol/L (98-107) L 03/15/19 07:15 Carbon Dioxide 27 mmol/L (22-30) 03/15/19 07:15 19 mmol/L 03/15/19 07:15 BUN 47 mg/dL (9-20) H 03/15/19 07:15 5.0 mg/dL (0.8-1.5) H 03/15/19 07:15 Estimated GFR 12 ml/min 03/15/19 07:15 9 % 03/15/19 07:15 Glucose 287 mg/dL (75-100) H 03/15/19 07:15 POC Glucose 285 (70-105) H 03/15/19 07:24 Lactic Acid 1.70 mmol/L (0.7-2.0) 03/10/19 23:17 Calcium 7.2 mg/dL (8.4-10.2) L D 03/15/19 07:15 0.50 mg/dL (0.1-1.2) 03/15/19 07:15 AST 522 units/L (5-40) H 03/15/19 07:15 ALT 474 units/L (7-56) H 03/15/19 07:15 129 units/L (35-129) 03/15/19 07:15 1156 units/L (55-170) H 03/11/19 06:07 CK-MB (CK-2) 4.6 ng/mL (0.0-4.0) H 03/11/19 06:07 CK-MB (CK-2) Rel Index 0.3 (0-4) 03/11/19 06:07 0.077 ng/mL (0.00-0.029) H 03/11/19 06:07 5.7 g/dL (6.3-8.2) L 03/15/19 07:15 2.4 g/dL (3.9-5) L 03/15/19 07:15 0.7 % 03/15/19 07:15 Triglycerides 91 mg/dL (2-149) 03/11/19 00:50 Cholesterol < 4 mg/dL (50-199) L 03/11/19 00:50 4 mg/dL (50-130) L 03/11/19 00:50 < 3 mg/dL (40-59) L 03/11/19 00:50 1.00 % 03/11/19 00:50 Briana (Yellow) 03/10/19 23:06 Cloudy (Clear) 03/10/19 23:06 5.0 (5.0-7.0) 03/10/19 23:06 Ur Specific [place] Line 1.016 (1.003-1.030) 03/10/19 23:06 >500 mg/dL (Negative) 03/10/19 23:06 Neg mg/dL (Negative) 03/10/19 23:06 Neg mg/dL (Negative) 03/10/19 23:06 Mod (Negative) 03/10/19 23:06 Neg (Negative) 03/10/19 23:06 Neg (Negative) 03/10/19 23:06 2.0 mg/dL (<2.0) 03/10/19 23:06 Ur Leukocyte Esterase Neg (Negative) 03/10/19 23:06 24.0 /HPF (0.0-6.0) H 03/10/19 23:06 24.0 /HPF (0.0-6.0) 03/10/19 23:06 U Epithel Cells (Auto) 4.0 /HPF (0-13.0) 03/10/19 23:06 Amorphous Crystals Few 03/10/19 23:06 Random Vancomycin 14 ug/mL (0-40.0) 03/12/19 05:06 C. difficile Tox (PCR) Negative (Negative) 03/11/19 Unknown Hepatitis A IgM Ab Non-reactive (NonReactive) 03/13/19 01:31 Hep Bs Antigen Non-reactive (Negative) 03/13/19 01:31 Hep B Core IgM Ab Non-reactive (NonReactive) 03/13/19 01:31 Non-reactive (NonReactive) 03/13/19 01:31 Influenza A (Rapid) Negative (Negative) 03/10/19 18:00 Influenza B (Rapid) Negative (Negative) 03/10/19 18:00 Blood Type A POSITIVE 03/13/19 19:12 Antibody Screen Negative 03/13/19 19:12 Crossmatch See Detail 03/13/19 19:12 Active Medications - Current Medications Current Medications: Generic Name Dose Route Start Last Admin Trade Name Freq PRN Reason Stop Dose Admin Acetaminophen 650 mg 03/11/19 00:40 03/15/19 00:49 Tylenol PO 650 mg Q4H PRN Administration Pain MILD(1-3)/Fever >100.5/[place] Acetaminophen 650 mg 03/11/19 00:40 03/12/19 04:53 Tylenol [place] 650 mg Q4H PRN Administration Pain MILD(1-3)/Fever >100.5/[place] Albumin Human 12.5 gm 03/13/19 09:29 Alburx 25% (Albumin) IV DUKE PRN Hypotension Lipase/Protease/Amylase 1 each 03/12/19 11:58 Pancreazjovan Manzo 10,500 Unit FEEDTUBE PRN PRN For Clogged Feeding Tube Dextrose 50 ml 03/11/19 00:44 D50w (25gm) Syringe IV PRN PRN Hypoglycemia Fentanyl 50 mcg 03/11/19 07:50 Sublimaze IV Q10MIN PRN ANALGESIA Heparin Sodium (Porcine) 5,000 unit 03/15/19 10:00 Heparin SUB-Q Q12HR ROXANNE Hydrophilic Ointment 1 applic 03/10/19 19:50 Vaseline Lip Therapy TP Q2HR PRN Dry Lips Propofol 1,000 mg in 100 mls @ 4.082 mls/hr 03/10/19 20:00 03/11/19 14:30 Diprivan 10 Mg/Ml IV Infused TITR ROXANNE Titration Protocol 5 MCG/KG/MIN Norepinephrine 4 mg in 250 mls @ 7.5 mls/hr 03/10/19 21:00 03/15/19 03:48 Levophed Drip 4 Mg/Ns 250 Ml IV 4 mcg/min TITR ROXANNE 15 mls/hr Titration Protocol 2 MCG/MIN Fentanyl Citrate 2,000 mcg in 100 mls @ 6.804 mls/hr 03/11/19 08:00 03/11/19 19:43 Fentanyl Drip Premix IV 0 mcg/kg/hr TITR ROXANNE 0 mls/hr Titration Protocol 1 MCG/KG/HR Ceftriaxone Sodium 2 gm in 100 mls @ 200 mls/hr 03/11/19 13:00 03/14/19 22:34 Rocephin/Ns 2 Gm/100 Ml IV 200 mls/hr Q12HR ROXANNE Administration Protocol Clindamycin HCl 900 mg in 50 mls @ 100 mls/hr 03/13/19 09:00 03/15/19 00:58 Cleocin 900 Mg/50 Ml IV 100 mls/hr Q8H ROXANNE Administration Sodium Chloride 100 mls @ 999 mls/hr 03/15/19 08:11 Nacl 0.9% IV DUKE PRN Hypotension Insulin Glargine 20 units 03/14/19 10:00 03/14/19 09:39 Lantus SUB-Q 20 units DAILY ROXANNE Administration Insulin Human Lispro 0 unit 03/11/19 06:00 03/15/19 07:26 Humalog SUB-Q 6 unit Q6HR ROXANNE Administration Protocol Multi-Ingred Cream/Lotion/Oil/Oint 1 applic 03/10/19 19:50 Artificial Tears Ophth Oint OU Q4HR PRN Dry Eye(s) Ondansetron HCl 4 mg 03/11/19 00:40 Zofran IV Q8H PRN Nausea And Vomiting Pantoprazole Sodium 40 mg 03/15/19 10:00 Protonix IV QDAY ROXANNE Simple Syrup 15 ml 03/12/19 11:58 Simple Syrup FEEDTUBE PRN PRN Hypoglycemia Simple Syrup 30 ml 03/12/19 11:58 Simple Syrup FEEDTUBE PRN PRN Hypoglycemia Sodium Bicarbonate 325 mg 03/12/19 11:58 Sodium Bicarbonate FEEDTUBE PRN PRN For Clogged Feeding Tube Sodium Chloride 10 ml 03/11/19 10:00 03/14/19 22:34 Sodium Chloride Flush Syringe 10 Ml IV 10 ml BID ROXANNE Administration Sodium Chloride 10 ml 03/11/19 00:40 Sodium Chloride Flush Syringe 10 Ml IV PRN PRN LINE FLUSH Nutrition/Malnutrition Assess - Dietary Evaluation Nutrition/Malnutrition Findings: Nutrition Notes Start: 03/12/19 11:38 Freq: Status: Active Protocol: Document 03/12/19 11:38 APOLINAR (Rec: 03/12/19 11:58 APOLINAR [email or web address] [email or web address]) Nutrition Notes Need for Assessment generated from: MD Order Initial or Follow up Assessment Current Diagnosis CKD(stage I-IV),Coronary Artery Disease,Diabetes,Sepsis ,Hypertension,Respiratory Failure Other Pertinent Diagnosis s/p cardiac arrest, anoxic brain injury Current Diet NPO Labs/Tests K 6.6 BUN 66 Cr 5.6 Ca 6.5 (adjusted 7.54) tBili 1.9 Pertinent Medications NS at 150ml/hr Height 5 ft 4 in Weight 149 kg [place] Body Weight (kg) 59.09 BMI 56.3 Weight Status Morbidly Obese Subjective/Other Information RD consulted for TF. Pt intubated. Burn Absent Trauma Absent #1 Nutrition Diagnosis Inadequate oral intake Etiology mech ventilation As Evidenced by Signs and Symptoms pt NPO Is patient on ventilator? Yes Is Patient Ambulatory and/or Out of Bed No REE-([facility]-confined to bed) [phone] Calculation Used for Recommendations 65-70% energy needs Additional Notes Energy needs: 4662-1292 kcal/ day Pro needs 2.5g/kg IBW: 148g/ day Fluid needs per MD Nutrition Intervention Nutrition Support: Nepro at 45ml/hr with 200ml water flush q4h. Kcal 1,944 Protein (gm) 87 Carbohydrates (gm) 174 Fat (gm) 104 Fluid (mL) 785 Fiber (gm) 14 Goal #1 TF tolerance Goal #2 TF to meet nutrient needs as best possible Anticipated Discharge Needs: Unable to identify at this time Follow-Up By: 03/15/19 Additional Comments F/U: new TF
[2019-03-15] MEDS: ROCEPHIN/NS 2 GM/100 ML 2 GM/100 ML BAG IV SCH ×2 (09:39→22:10)
[2019-03-15] MEDS: PROTONIX IV SCH (09:39)
[2019-03-15] MEDS ORDERED: HEPARIN SUB-Q SCH (10:00)
[2019-03-15] MEDS ORDERED: LANTUS SUB-Q SCH (10:00)
[2019-03-15] MEDS: SODIUM CHLORIDE FLUSH SYRINGE 10 ML IV SCH ×2 (10:08→22:10)
--- NOTE | 2019-03-15 10:11 | Progress Note ---
Assessment and Plan - Patient Problems (1) Acute on chronic renal failure Current Visit: Yes Status: Acute Qualifiers: Chronic kidney disease stage: stage 3 (moderate) Plan to address problem: secondary to acute tubular necrosis in the setting of cardiac arrest, streptococcal bacteremia . Patient remains anuric. s/p 3 HD treatments , last HD on 03/14. Transition to HD on MWF schedule Will add renal US as well as complement levels and ANCA studies. UA noted for microscopic hematuria/proteinuria, so will need to r/o GN etiologies. (2) Hyperkalemia Current Visit: Yes Status: Acute Plan to address problem: K improved with HD, cont 2g K renal diet (3) Cardiopulmonary arrest with successful resuscitation Current Visit: Yes Status: Acute Plan to address problem: ROSC in ER about 2 doses of epinephrine. Patient is on Levothroid at this time and cardiology evaluation has been reviewed and noted. Patient also had a repe at echocardiogram done and reviewed with EF 40-45% and impaired relaxation noted. We'll follow up with further recommendations from cardiology standpoint (4) Sepsis Current Visit: Yes Status: Acute Qualifiers: Sepsis type: Streptococcus group B Qualified Code(s): A40.1 - Sepsis due to streptococcus, group B Plan to address problem: Streptococcal bacteremia noted on initial blood cultures. cont ABXs as per ID recommendations, dose meds for HD (5) Metabolic acidosis Current Visit: Yes Status: Acute Plan to address problem: corrected with HD (6) T2DM (type 2 diabetes mellitus) Current Visit: Yes Status: Acute Qualifiers: Diabetes mellitus extermination inspector insulin use: unspecified alf insulin use status Plan to address problem: diabetes management per primary attending. Subjective Date of service: 03/15/19 Principal diagnosis: severe sepsis Interval history: Pt remains intubated, on levophed 4mcg/min. had 3rd HD without complications yesterday Objective - Vital Signs Vital signs: Vital Signs - 12hr 03/14/19 03/14/19 03/14/19 22:15 22:30 22:44 Temperature Pulse Rate 87 95 H 91 H Pulse Rate [ From Monitor] Respiratory 28 H 23 Rate Blood Pressure 113/42 112/51 O2 Sat by Pulse 96 98 Oximetry 03/14/19 03/14/19 03/14/19 22:46 23:00 23:10 Temperature Pulse Rate 91 H 91 H 90 Pulse Rate [ From Monitor] Respiratory 28 H 29 H Rate Blood Pressure 104/22 118/25 118/25 O2 Sat by Pulse 99 98 98 Oximetry 03/14/19 03/14/19 03/14/19 23:16 23:30 23:46 Temperature Pulse Rate 92 H 93 H 87 Pulse Rate [ From Monitor] Respiratory 30 H 31 H 30 H Rate Blood Pressure 118/25 104/22 95/25 O2 Sat by Pulse 98 97 97 Oximetry 03/15/19 03/15/19 03/15/19 00:00 00:15 00:30 Temperature Pulse Rate 83 84 81 Pulse Rate [ From Monitor] Respiratory 28 H 28 H 27 H Rate Blood Pressure 89/33 95/41 87/39 O2 Sat by Pulse 96 98 98 Oximetry 03/15/19 03/15/19 03/15/19 00:42 00:45 00:46 Temperature 101.1 F H Pulse Rate 89 Pulse Rate [ 81 From Monitor] Respiratory 28 H 28 H Rate Blood Pressure 118/64 O2 Sat by Pulse 98 99 Oximetry 03/15/19 03/15/19 03/15/19 01:00 01:16 01:30 Temperature Pulse Rate 87 87 78 Pulse Rate [ From Monitor] Respiratory 27 H 25 H 28 H Rate Blood Pressure 95/50 94/19 97/21 O2 Sat by Pulse 97 97 100 Oximetry 03/15/19 03/15/19 03/15/19 01:45 02:00 02:15 Temperature Pulse Rate 76 75 74 Pulse Rate [ From Monitor] Respiratory 25 H 26 H 25 H Rate Blood Pressure 117/29 111/29 118/34 O2 Sat by Pulse 99 99 99 Oximetry 03/15/19 03/15/19 03/15/19 02:30 02:45 03:00 Temperature Pulse Rate 73 74 75 Pulse Rate [ From Monitor] Respiratory 25 H 25 H 25 H Rate Blood Pressure 113/26 101/32 122/54 O2 Sat by Pulse 98 98 98 Oximetry 03/15/19 03/15/19 03/15/19 03:15 03:30 03:45 Temperature Pulse Rate 77 77 80 Pulse Rate [ From Monitor] Respiratory 24 25 H 25 H Rate Blood Pressure 132/52 132/52 145/46 O2 Sat by Pulse 97 97 98 Oximetry 03/15/19 03/15/19 03/15/19 03:48 04:00 04:16 Temperature 98.9 F Pulse Rate 80 85 84 Pulse Rate [ 85 From Monitor] Respiratory 28 H 27 H Rate Blood Pressure 145/46 145/46 103/20 O2 Sat by Pulse 97 97 98 Oximetry 03/15/19 03/15/19 03/15/19 04:30 04:45 05:00 Temperature Pulse Rate 84 85 83 Pulse Rate [ From Monitor] Respiratory 26 H 27 H 27 H Rate Blood Pressure 121/36 107/38 98/34 O2 Sat by Pulse 98 98 99 Oximetry 03/15/19 03/15/19 03/15/19 05:15 05:30 05:45 Temperature Pulse Rate 85 82 81 Pulse Rate [ From Monitor] Respiratory 26 H 26 H 25 H Rate Blood Pressure 100/25 92/31 121/46 O2 Sat by Pulse 98 98 99 Oximetry 03/15/19 03/15/19 03/15/19 06:00 06:15 06:30 Temperature Pulse Rate 81 77 78 Pulse Rate [ From Monitor] Respiratory 25 H 26 H 25 H Rate Blood Pressure 119/46 125/41 141/56 O2 Sat by Pulse 99 99 98 Oximetry 03/15/19 03/15/19 03/15/19 06:45 07:00 07:16 Temperature Pulse Rate 82 82 82 Pulse Rate [ From Monitor] Respiratory 25 H 25 H 26 H Rate Blood Pressure 120/51 120/51 132/64 O2 Sat by Pulse 98 98 98 Oximetry 03/15/19 03/15/19 03/15/19 07:30 07:45 08:00 Temperature 98.8 F Pulse Rate 81 81 89 Pulse Rate [ 85 From Monitor] Respiratory 26 H 26 H 33 H Rate Blood Pressure 145/62 130/109 130/109 O2 Sat by Pulse 99 100 98 Oximetry 03/15/19 03/15/19 08:16 09:43 Temperature Pulse Rate 86 89 Pulse Rate [ From Monitor] Respiratory 29 H 30 H Rate Blood Pressure 140/56 128/59 O2 Sat by Pulse 96 97 Oximetry - General Appearance General appearance: obese, sedated on ventilator, intubated EENT: ATNC, mucous membranes moist Neck: no JVD Respiratory: Present: Decreased Breath Sounds Cardiology: regular, S1S2 Gastrointestinal: normoactive bowel sounds, obese Integumentary: no rash, other (+ edema b/l LE ) Neurologic: other (intubated ) - Lab 03/14/19 13:43 03/15/19 07:15 Most recent lab results Calcium 7.2 mg/dL (8.4-10.2) L D 03/15/19 07:15 Medications & Allergies - Medications Allergies/Adverse Reactions: Allergies No Known Allergies Allergy (Verified 03/10/19 17:37) Home Medications: Home Medications Medication Instructions Recorded Confirmed Last Taken Type Allopurinol [Zyloprim] 300 mg PO DAILY 03/10/19 03/10/19 Unknown History Aspirin [Adult Aspirin] 81 mg PO DAILY 03/10/19 03/10/19 Unknown History Atorvastatin [Lipitor Tab] 80 mg PO DAILY 03/10/19 03/10/19 Unknown History Carvedilol [Coreg] 12.5 mg PO BID 03/10/19 03/10/19 Unknown History Clopidogrel [Plavix] 75 mg PO DAILY 03/10/19 03/10/19 Unknown History Gabapentin [Neurontin] 300 mg PO BID 03/10/19 03/10/19 Unknown History Insulin Lispro Protamin/Lispro 33 unit SQ BID 03/10/19 03/10/19 Unknown History [Humalog Mix 75-25 Vial] Lisinopril [Zestril TAB] 10 mg PO DAILY 03/10/19 03/10/19 Unknown History Pantoprazole [Protonix] 40 mg PO DAILY 03/10/19 03/10/19 Unknown History Sitagliptin Phosphate [Januvia] 50 mg PO DAILY 03/10/19 03/10/19 Unknown History Active Medications: Generic Name Dose Route Start Last Admin Trade Name Freq PRN Reason Stop Dose Admin Acetaminophen 650 mg 03/11/19 00:40 03/15/19 00:49 Tylenol PO 650 mg Q4H PRN Administration Pain MILD(1-3)/Fever >100.5/[place] Acetaminophen 650 mg 03/11/19 00:40 03/12/19 04:53 Tylenol [place] 650 mg Q4H PRN Administration Pain MILD(1-3)/Fever >100.5/[place] Albumin Human 12.5 gm 03/13/19 09:29 Alburx 25% (Albumin) IV DUKE PRN Hypotension Lipase/Protease/Amylase 1 each 03/12/19 11:58 Pancrenydia Manzo 10,500 Unit FEEDTUBE PRN PRN For Clogged Feeding Tube Dextrose 50 ml 03/11/19 00:44 D50w (25gm) Syringe IV PRN PRN Hypoglycemia Fentanyl 50 mcg 03/11/19 07:50 Sublimaze IV Q10MIN PRN ANALGESIA Hydrophilic Ointment 1 applic 03/10/19 19:50 Vaseline Lip Therapy TP Q2HR PRN Dry Lips Propofol 1,000 mg in 100 mls @ 4.082 mls/hr 03/10/19 20:00 03/11/19 14:30 Diprivan 10 Mg/Ml IV Infused TITR ROXANNE Titration Protocol 5 MCG/KG/MIN Norepinephrine 4 mg in 250 mls @ 7.5 mls/hr 03/10/19 21:00 03/15/19 03:48 Levophed Drip 4 Mg/Ns 250 Ml IV 4 mcg/min TITR ROXANNE 15 mls/hr Titration Protocol 2 MCG/MIN Fentanyl Citrate 2,000 mcg in 100 mls @ 6.804 mls/hr 03/11/19 08:00 03/11/19 19:43 Fentanyl Drip Premix IV 0 mcg/kg/hr TITR ROXANNE 0 mls/hr Titration Protocol 1 MCG/KG/HR Ceftriaxone Sodium 2 gm in 100 mls @ 200 mls/hr 03/11/19 13:00 03/15/19 09:39 Rocephin/Ns 2 Gm/100 Ml IV 200 mls/hr Q12HR ROXANNE Administration Protocol Clindamycin HCl 900 mg in 50 mls @ 100 mls/hr 03/13/19 09:00 03/15/19 09:39 Cleocin 900 Mg/50 Ml IV 100 mls/hr Q8H ROXANNE Administration Sodium Chloride 100 mls @ 999 mls/hr 03/15/19 08:11 Nacl 0.9% IV DUKE PRN Hypotension Insulin Glargine 24 units 03/15/19 10:00 03/15/19 09:40 Lantus SUB-Q 24 units DAILY ROXANNE Administration Insulin Human Lispro 0 unit 03/11/19 06:00 03/15/19 07:26 Humalog SUB-Q 6 unit Q6HR ROXANNE Administration Protocol Multi-Ingred Cream/Lotion/Oil/Oint 1 applic 03/10/19 19:50 Artificial Tears Ophth Oint OU Q4HR PRN Dry Eye(s) Ondansetron HCl 4 mg 03/11/19 00:40 Zofran IV Q8H PRN Nausea And Vomiting Pantoprazole Sodium 40 mg 06/29/19 10:00 03/15/19 09:39 Protonix IV 40 mg QDAY ROXANNE Administration Simple Syrup 15 ml 03/12/19 11:58 Simple Syrup FEEDTUBE PRN PRN Hypoglycemia Simple Syrup 30 ml 03/12/19 11:58 Simple Syrup FEEDTUBE PRN PRN Hypoglycemia Sodium Bicarbonate 325 mg 03/12/19 11:58 Sodium Bicarbonate FEEDTUBE PRN PRN For Clogged Feeding Tube Sodium Chloride 10 ml 03/11/19 10:00 03/14/19 22:34 Sodium Chloride Flush Syringe 10 Ml IV 10 ml BID ROXANNE Administration Sodium Chloride 10 ml 03/11/19 00:40 Sodium Chloride Flush Syringe 10 Ml IV PRN PRN LINE FLUSH
--- NOTE | 2019-03-15 11:33 | Progress Note ---
Assessment and Plan Patient is stable from a cardiac standpoint. We will continue supportive management. The patient has been seen in conjunction with Dr. Navarro, who agrees with the assessment and plan of care. - Patient Problems (1) Cardiopulmonary arrest with successful resuscitation Current Visit: Yes Status: Acute (2) Acute metabolic encephalopathy Current Visit: Yes Status: Acute (3) Acute on chronic renal failure Current Visit: Yes Status: Acute Qualifiers: Chronic kidney disease stage: stage 3 (moderate) (4) Altered mental status Current Visit: Yes Status: Acute (5) Hypotension Current Visit: Yes Status: Acute (6) Metabolic acidosis Current Visit: Yes Status: Acute (7) Pancytopenia Current Visit: Yes Status: Acute (8) Sepsis Current Visit: Yes Status: Acute Qualifiers: Sepsis type: Streptococcus group B Qualified Code(s): A40.1 - Sepsis due to streptococcus, group B (9) UTI (urinary tract infection) Current Visit: Yes Status: Acute (10) CAD (coronary artery disease) Current Visit: Yes Status: Chronic Qualifiers: Coronary Disease-Associated Artery/Lesion type: [place] artery [place] vs. transplanted heart: kake heart (11) Diabetes Current Visit: Yes Status: Chronic (12) Obesity Current Visit: Yes Status: Chronic (13) Stented coronary artery Current Visit: Yes Status: Chronic Subjective Date of service: 03/15/19 Principal diagnosis: severe sepsis Interval history: Patient intubated and sedated. Withdraws from pain. Atrial fibrillation in 80s on telemetry. Objective Last Vital Signs Temp 98.8 F 03/15/19 08:00 Pulse 89 03/15/19 09:43 Resp 30 H 03/15/19 09:43 BP 128/59 03/15/19 09:43 Pulse Ox 97 03/15/19 09:43 - Physical Examination General: Other (intubated, withdraws from pain) Neck: Positive: neck supple, trachea midline Cardiac: Positive: irregularly irregular Lungs: Positive: Ventilated Respirations Neuro: Positive: Other (intubated, withdraws from pain) Abdomen: Positive: Other (Obese) /Rectal: Other Skin: Negative: Rash Musculoskeletal: Decreased Range of Motion, No Pain Extremities: Present: edema (trace BLE), Other (Generalized edema ) - Labs and Meds Cardiac Enzymes 03/15/19 Range/Units 07:15 AST 522 H (5-40) units/L CBC 03/14/19 Range/Units 13:43 WBC 14.0 H (4.5-11.0) K/mm3 RBC 2.78 L (3.65-5.03) M/mm3 Hgb 8.9 L (11.8-15.2) gm/dl Hct 26.0 L D (35.5-45.6) % Plt Count 42 L (140-440) K/mm3 Comprehensive Metabolic Panel 03/15/19 Range/Units 07:15 Sodium 138 (137-145) mmol/L Potassium 3.8 (3.6-5.0) mmol/L Chloride 96.0 L (98-107) mmol/L Carbon Dioxide 27 (22-30) mmol/L BUN 47 H (9-20) mg/dL Creatinine 5.0 H (0.8-1.5) mg/dL Glucose 287 H (75-100) mg/dL Calcium 7.2 L D (8.4-10.2) mg/dL AST 522 H (5-40) units/L ALT 474 H (7-56) units/L Alkaline Phosphatase 129 (35-129) units/L Total Protein 5.7 L (6.3-8.2) g/dL Albumin 2.4 L (3.9-5) g/dL - Imaging and Cardiology EKG: image reviewed Echo: report reviewed ( 03/05/2019 showed EF 60-65%, mild LVH, LA mildly dilated, small pericardial effusion. ) - Telemetry EKG Rhythm: Atrial Fibrillation - EKG Sinus rhythms and dysrhythmias: sinus rhythm AV and intraventricular conduction: left anterior fascicular - Allied health notes Allied health notes reviewed: nursing
[2019-03-15 12:13] LABS: Hematocrit 23.4 % (35.5-45.6); Hemoglobin 8.1 gm/dl (11.8-15.2); Mean Corpuscular HGB Conc 35 % (32-34); Mean Corpuscular Volume 94 fl (84-94); Red Cell Distribution Width 18.5 % (13.2-15.2)
[2019-03-15 12:14] LABS: Platelet Count 42 K/mm3 (140-440)
[2019-03-15 13:07] LABS: Total Cells Counted 100
[2019-03-15 13:08] LABS: Basophils % (Manual) 0 % (0.0-1.8); Eosinophils % (Manual) 0 % (0.0-4.3)
[2019-03-15 13:11] LABS: Hypochromasia Few; Tear Drop Cells Rare
[2019-03-15 13:12] LABS: Platelet Estimate Appears Decreased
[2019-03-15] MEDS ORDERED: SODIUM BICARBONATE FEEDTUBE PRN (13:21)
[2019-03-15] MEDS ORDERED: SIMPLE SYRUP FEEDTUBE PRN ×2 (13:21)
[2019-03-15] MEDS ORDERED: PANCREAZE DR 10,500 UNIT FEEDTUBE PRN (13:21)
--- NOTE | 2019-03-15 14:59 | Progress Note ---
Assessment and Plan Cultures: Blood culture 03/10/2019 Group-A Strep 2 of 4 bottles Tracheal asp 03/10/2019 poor specimen Blood culture 03/12/2019 no growth today C diff negative Assessment: 54 y/o male with history of diabetes, hypertension, chronic kidney disease, coronary artery disease admitted on 03/10/2019 due to a week history of facial/mouth pain (?dental pain) associated with generalized weakness, cold sensation, cough with dean sputum production and body aches, 48 hour-history of sore throat, in the ED patient went into PEA arrest s/p CPR: 1) Severe Sepsis with PEA arrest and transient shock post arrest: still with fever. Etiology likely due to GAS bacteremia. UA with 24 wbc with no LE ? mild UTI (does not explain severity of sepsis). Influenza rapid negative. CXR and CT chest no consolidations. 2) Invasive Group-A Strep bacteremia/toxic shock syndrome: source unclear ?tonsillopharingitis, ?dental abscess, ?early aspiration pneumonia. Blood culture 03/10/2019 Group-A Strep [address] face showed a small right mandibular premolar abscess, poor dentition and chronic sinusitis. TTE no vegetations. 3) Acute encephalopathy: not better; post arrest +/- due to infection ? isc hemic brain injury. CT head some indistinctness and loss of dean-white matter differentiation and indistinct visualization of the basal ganglia. This is nonspecific finding but may be seen with diffuse hypoxic ischemic brain injury. 4) Acute respiratory failure: intubated. CT chest without contrast shows pericardial effusion measuring up to 1.4 cm in transverse diameter, posterior atelectasis both lungs. Minimal pleural fluid collection. 5) Thrombocytopenia: from sepsis. 6) ISMAEL on CKD: renally adjusted meds. Now on HD had a fem vas cath 7) Elevated LFTs: probably from shock and sepsis, but need to monitor. Recommendations: - continue clindamycin 900 mg IV q8h and continue ceftriaxone for Group-A Strep bacteremia/toxic shock syndrome - femoral vascath should be removed soon - monitor LFTs Guarded prognosis. MD [facility] C: [phone] O: [phone] F: [phone] Subjective Date of service: 03/15/19 Principal diagnosis: severe sepsis Interval history: Off levophed. Still with fever. Remains intubated, on the vent. Objective - Exam Narrative Exam: Physical Exam: Constitutional: intubated. Obese Head, Ears, Nose: Normocephalic, atraumatic. External ears, nose normal Eyes: Conjunctivae/corneas clear. No icterus. No ptosis. Neck: intubated Oral: intubated Cardiovascular: S1, S2 normal. Respiratory: Good air entry, clear to auscultation bilaterally GI: Soft, non-tender; bowel sounds normal. No peritoneal signs Musculoskeletal: Edema. Obese Skin: No rash or abscess. Superficial wounds on sacral region Hem/Lymphatic: No palpable cervical or supraclavicular nodes. No lymphangitis Psych: no agitation Neurological: intubated, on vent - Constitutional Vitals: Vital Signs Temp Pulse Resp BP Pulse Ox 98.1 F 84 30 H 91/37 96 03/15/19 12:00 03/15/19 13:00 03/15/19 13:00 03/15/19 13:00 03/15/19 13:00 Temperature -Last 24 Hours Temperature 98.1 F Temperature 98.8 F Temperature 98.9 F Temperature 101.1 F Temperature 99.1 F Temperature 98.8 F - Labs CBC & Chem 7: 03/15/19 07:15 03/15/19 07:15 Labs: Abnormal lab results 03/14/19 03/14/19 03/15/19 Range/Units 13:43 18:12 00:43 WBC (4.5-11.0) K/mm3 RBC (3.65-5.03) M/mm3 Hgb (11.8-15.2) gm/dl Hct (35.5-45.6) % MCHC (32-34) % RDW (13.2-15.2) % Plt Count (140-440) K/mm3 Seg Neuts % (Manual) 2.0 L (40.0-70.0) % Lymphocytes % (Manual) 84.0 H (13.4-35.0) % Monocytes % (Manual) 13.0 H (0.0-7.3) % Seg Neutrophils # Man 0.3 L (1.8-7.7) K/mm3 Lymphocytes # (Manual) 11.8 H (1.2-5.4) K/mm3 Monocytes # (Manual) 1.8 H (0.0-0.8) K/mm3 POC ABG pH (7.35-7.45) POC ABG pCO2 (35-45) Chloride (98-107) mmol/L BUN (9-20) mg/dL Creatinine (0.8-1.5) mg/dL Glucose (75-100) mg/dL POC Glucose 313 H 236 H (70-105) Calcium (8.4-10.2) mg/dL AST (5-40) units/L ALT (7-56) units/L Total Protein (6.3-8.2) g/dL Albumin (3.9-5) g/dL 03/15/19 03/15/19 03/15/19 Range/Units 04:24 07:15 07:15 WBC 16.1 H (4.5-11.0) K/mm3 RBC 2.50 L (3.65-5.03) M/mm3 Hgb 8.1 L (11.8-15.2) gm/dl Hct 23.4 L (35.5-45.6) % MCHC 35 H (32-34) % RDW 18.5 H (13.2-15.2) % Plt Count 42 L (140-440) K/mm3 Seg Neuts % (Manual) 2.0 L (40.0-70.0) % Lymphocytes % (Manual) 41.0 H (13.4-35.0) % Monocytes % (Manual) 11.0 H (0.0-7.3) % Seg Neutrophils # Man 0.3 L (1.8-7.7) K/mm3 Lymphocytes # (Manual) 6.6 H (1.2-5.4) K/mm3 Monocytes # (Manual) 1.8 H (0.0-0.8) K/mm3 POC ABG pH 7.497 H (7.35-7.45) POC ABG pCO2 34.0 L (35-45) Chloride 96.0 L (98-107) mmol/L BUN 47 H (9-20) mg/dL Creatinine 5.0 H (0.8-1.5) mg/dL Glucose 287 H (75-100) mg/dL POC Glucose (70-105) Calcium 7.2 L D (8.4-10.2) mg/dL AST 522 H (5-40) units/L ALT 474 H (7-56) units/L Total Protein 5.7 L (6.3-8.2) g/dL Albumin 2.4 L (3.9-5) g/dL 03/15/19 03/15/19 Range/Units 07:24 11:18 WBC (4.5-11.0) K/mm3 RBC (3.65-5.03) M/mm3 Hgb (11.8-15.2) gm/dl Hct (35.5-45.6) % MCHC (32-34) % RDW (13.2-15.2) % Plt Count (140-440) K/mm3 Seg Neuts % (Manual) (40.0-70.0) % Lymphocytes % (Manual) (13.4-35.0) % Monocytes % (Manual) (0.0-7.3) % Seg Neutrophils # Man (1.8-7.7) K/mm3 Lymphocytes # (Manual) (1.2-5.4) K/mm3 Monocytes # (Manual) (0.0-0.8) K/mm3 POC ABG pH (7.35-7.45) POC ABG pCO2 (35-45) Chloride (98-107) mmol/L BUN (9-20) mg/dL Creatinine (0.8-1.5) mg/dL Glucose (75-100) mg/dL POC Glucose 285 H 287 H (70-105) Calcium (8.4-10.2) mg/dL AST (5-40) units/L ALT (7-56) units/L Total Protein (6.3-8.2) g/dL Albumin (3.9-5) g/dL - Imaging and cardiology Chest x-ray: report reviewed, image reviewed (cardiomegaly)
--- NOTE | 2019-03-15 15:00 | Progress Note ---
Subjective Date of service: 03/15/19 Principal diagnosis: severe sepsis Interval history: came by for consult other consultatnts are discussing care with family did extensive chart review and went over CT of brain from several days back that CT was negative suspect anoxia is central issue as brain/ kidney insults are superimposed by history plan follow up sepsis being addressed Objective - Vital Sign Vital Signs - 12hr 03/15/19 03/15/19 03/15/19 03:00 03:15 03:30 Temperature Pulse Rate 75 77 77 Pulse Rate [ From Monitor] Respiratory 25 H 24 25 H Rate Blood Pressure 122/54 132/52 132/52 O2 Sat by Pulse 98 97 97 Oximetry 03/15/19 03/15/19 03/15/19 03:45 03:48 04:00 Temperature 98.9 F Pulse Rate 80 80 85 Pulse Rate [ 85 From Monitor] Respiratory 25 H 28 H Rate Blood Pressure 145/46 145/46 145/46 O2 Sat by Pulse 98 97 97 Oximetry 03/15/19 03/15/19 03/15/19 04:16 04:30 04:45 Temperature Pulse Rate 84 84 85 Pulse Rate [ From Monitor] Respiratory 27 H 26 H 27 H Rate Blood Pressure 103/20 121/36 107/38 O2 Sat by Pulse 98 98 98 Oximetry 03/15/19 03/15/19 03/15/19 05:00 05:15 05:30 Temperature Pulse Rate 83 85 82 Pulse Rate [ From Monitor] Respiratory 27 H 26 H 26 H Rate Blood Pressure 98/34 100/25 92/31 O2 Sat by Pulse 99 98 98 Oximetry 03/15/19 03/15/19 03/15/19 05:45 06:00 06:15 Temperature Pulse Rate 81 81 77 Pulse Rate [ From Monitor] Respiratory 25 H 25 H 26 H Rate Blood Pressure 121/46 119/46 125/41 O2 Sat by Pulse 99 99 99 Oximetry 03/15/19 03/15/19 03/15/19 06:30 06:45 07:00 Temperature Pulse Rate 78 82 82 Pulse Rate [ From Monitor] Respiratory 25 H 25 H 25 H Rate Blood Pressure 141/56 120/51 120/51 O2 Sat by Pulse 98 98 98 Oximetry 03/15/19 03/15/19 03/15/19 07:16 07:30 07:45 Temperature Pulse Rate 82 81 81 Pulse Rate [ From Monitor] Respiratory 26 H 26 H 26 H Rate Blood Pressure 132/64 145/62 130/109 O2 Sat by Pulse 98 99 100 Oximetry 03/15/19 03/15/19 03/15/19 08:00 08:16 08:30 Temperature 98.8 F Pulse Rate 89 86 86 Pulse Rate [ 85 From Monitor] Respiratory 33 H 29 H 30 H Rate Blood Pressure 130/109 140/56 133/68 O2 Sat by Pulse 98 96 95 Oximetry 03/15/19 03/15/19 03/15/19 08:45 09:00 09:15 Temperature Pulse Rate 84 83 Pulse Rate [ From Monitor] Respiratory 29 H 27 H Rate Blood Pressure 134/66 122/45 127/63 O2 Sat by Pulse 96 96 97 Oximetry 03/15/19 03/15/19 03/15/19 09:30 09:43 09:46 Temperature Pulse Rate 82 89 93 H Pulse Rate [ From Monitor] Respiratory 26 H 30 H 34 H Rate Blood Pressure 137/63 128/59 128/59 O2 Sat by Pulse 97 97 98 Oximetry 03/15/19 03/15/19 03/15/19 10:00 10:15 10:30 Temperature Pulse Rate 85 85 85 Pulse Rate [ From Monitor] Respiratory 29 H 32 H 32 H Rate Blood Pressure 127/63 112/63 130/67 O2 Sat by Pulse 97 95 96 Oximetry 03/15/19 03/15/19 03/15/19 10:45 11:00 11:15 Temperature Pulse Rate 84 85 85 Pulse Rate [ From Monitor] Respiratory 34 H 32 H 34 H Rate Blood Pressure 134/63 138/51 134/71 O2 Sat by Pulse 96 96 97 Oximetry 03/15/19 03/15/19 03/15/19 11:30 11:45 12:00 Temperature 98.1 F Pulse Rate 89 85 91 H Pulse Rate [ 83 From Monitor] Respiratory 34 H 32 H 33 H Rate Blood Pressure 130/67 127/52 127/52 O2 Sat by Pulse 95 95 94 Oximetry 03/15/19 03/15/19 03/15/19 12:16 12:30 12:46 Temperature Pulse Rate 85 90 Pulse Rate [ From Monitor] Respiratory 28 H 31 H Rate Blood Pressure 137/79 137/79 99/42 O2 Sat by Pulse 95 96 94 Oximetry 03/15/19 13:00 Temperature Pulse Rate 84 Pulse Rate [ From Monitor] Respiratory 30 H Rate Blood Pressure 91/37 O2 Sat by Pulse 96 Oximetry - Laboratory Findings CBC and BMP: 03/15/19 07:15 03/15/19 07:15 Abnormal Lab Findings: Abnormal Labs 03/10/19 03/10/19 03/10/19 17:57 17:57 17:57 WBC 1.2 L* RBC 2.46 L Hgb 7.9 L Hct 23.2 L MCV MCHC RDW 18.2 H Plt Count 47 L Person # 0.9 H Seg Neuts % (Manual) 6.0 L Lymphocytes % (Manual) 74.0 H Monocytes % (Manual) 20.0 H Nucleated RBC % Seg Neutrophils # 0.1 L Seg Neutrophils # Man 0.1 L Lymphocytes # (Manual) 0.9 L Monocytes # (Manual) INR POC ABG pH POC ABG pCO2 POC ABG pO2 Potassium Chloride Carbon Dioxide BUN 46 H Creatinine 2.9 H Glucose 200 H POC Glucose Lactic Acid 2.50 H* Calcium 7.6 L Total Bilirubin AST ALT Total Creatine Kinase CK-MB (CK-2) Troponin T Total Protein Albumin 3.2 L Cholesterol LDL Cholesterol Direct HDL Cholesterol Urine WBC (Auto) Crossmatch 03/10/19 03/10/19 03/10/19 17:57 18:01 18:52 WBC RBC Hgb Hct MCV MCHC RDW Plt Count Person # Seg Neuts % (Manual) Lymphocytes % (Manual) Monocytes % (Manual) Nucleated RBC % Seg Neutrophils # Seg Neutrophils # Man Lymphocytes # (Manual) Monocytes # (Manual) INR 1.15 H POC ABG pH POC ABG pCO2 POC ABG pO2 Potassium Chloride Carbon Dioxide BUN Creatinine Glucose POC Glucose 234 H Lactic Acid Calcium Total Bilirubin AST ALT Total Creatine Kinase CK-MB (CK-2) Troponin T Total Protein Albumin Cholesterol LDL Cholesterol Direct HDL Cholesterol Urine WBC (Auto) Crossmatch See Detail 03/10/19 03/10/19 03/10/19 19:16 20:56 21:32 WBC RBC Hgb Hct MCV MCHC RDW Plt Count Person # Seg Neuts % (Manual) Lymphocytes % (Manual) Monocytes % (Manual) Nucleated RBC % Seg Neutrophils # Seg Neutrophils # Man Lymphocytes # (Manual) Monocytes # (Manual) INR POC ABG pH 7.274 L POC ABG pCO2 46.6 H POC ABG pO2 315 H Potassium Chloride Carbon Dioxide BUN Creatinine Glucose POC Glucose Lactic Acid 2.80 H* Calcium Total Bilirubin AST ALT Total Creatine Kinase CK-MB (CK-2) Troponin T Total Protein Albumin Cholesterol LDL Cholesterol Direct HDL Cholesterol Urine WBC (Auto) Crossmatch 03/10/19 03/10/19 03/11/19 23:06 23:29 00:50 WBC RBC Hgb Hct MCV MCHC RDW Plt Count Person # Seg Neuts % (Manual) Lymphocytes % (Manual) Monocytes % (Manual) Nucleated RBC % Seg Neutrophils # Seg Neutrophils # Man Lymphocytes # (Manual) Monocytes # (Manual) INR POC ABG pH POC ABG pCO2 POC ABG pO2 Potassium Chloride Carbon Dioxide BUN Creatinine Glucose POC Glucose 237 H Lactic Acid Calcium Total Bilirubin AST ALT Total Creatine Kinase 513 H CK-MB (CK-2) Troponin T 0.075 H Total Protein Albumin Cholesterol < 4 L LDL Cholesterol Direct 4 L HDL Cholesterol < 3 L Urine WBC (Auto) 24.0 H Crossmatch 03/11/19 03/11/19 03/11/19 05:01 05:01 06:06 WBC RBC 2.29 L Hgb 7.3 L Hct 22.2 L MCV 97 H MCHC RDW 18.2 H Plt Count 40 L Person # Seg Neuts % (Manual) 8.0 L Lymphocytes % (Manual) 67.0 H Monocytes % (Manual) 24.0 H Nucleated RBC % 5.0 H Seg Neutrophils # Seg Neutrophils # Man 0.4 L Lymphocytes # (Manual) Monocytes # (Manual) 1.2 H INR POC ABG pH POC ABG pCO2 32.8 L POC ABG pO2 Potassium 5.3 H Chloride Carbon Dioxide 19 L BUN 49 H Creatinine 3.7 H Glucose 203 H POC Glucose Lactic Acid Calcium 7.1 L Total Bilirubin AST ALT Total Creatine Kinase CK-MB (CK-2) Troponin T Total Protein Albumin Cholesterol LDL Cholesterol Direct HDL Cholesterol Urine WBC (Auto) Crossmatch 03/11/19 03/11/19 03/11/19 06:07 06:35 13:07 WBC RBC Hgb Hct MCV MCHC RDW Plt Count Person # Seg Neuts % (Manual) Lymphocytes % (Manual) Monocytes % (Manual) Nucleated RBC % Seg Neutrophils # Seg Neutrophils # Man Lymphocytes # (Manual) Monocytes # (Manual) INR POC ABG pH POC ABG pCO2 POC ABG pO2 Potassium Chloride Carbon Dioxide BUN Creatinine Glucose POC Glucose 209 H 185 H Lactic Acid Calcium Total Bilirubin AST ALT Total Creatine Kinase 1156 H CK-MB (CK-2) 4.6 H Troponin T 0.077 H Total Protein Albumin Cholesterol LDL Cholesterol Direct HDL Cholesterol Urine WBC (Auto) Crossmatch 03/11/19 03/11/19 03/12/19 18:36 23:45 04:25 WBC RBC Hgb Hct MCV MCHC RDW Plt Count Person # Seg Neuts % (Manual) Lymphocytes % (Manual) Monocytes % (Manual) Nucleated RBC % Seg Neutrophils # Seg Neutrophils # Man Lymphocytes # (Manual) Monocytes # (Manual) INR POC ABG pH 7.320 L POC ABG pCO2 POC ABG pO2 Potassium Chloride Carbon Dioxide BUN Creatinine Glucose POC Glucose 126 H 137 H Lactic Acid Calcium Total Bilirubin AST ALT Total Creatine Kinase CK-MB (CK-2) Troponin T Total Protein Albumin Cholesterol LDL Cholesterol Direct HDL Cholesterol Urine WBC (Auto) Crossmatch 03/12/19 03/12/19 03/12/19 05:06 05:06 05:57 WBC RBC 2.24 L Hgb 7.2 L Hct 21.9 L MCV 98 H MCHC RDW 18.3 H Plt Count 38 L Person # Seg Neuts % (Manual) 4.0 L Lymphocytes % (Manual) Monocytes % (Manual) 69.0 H Nucleated RBC % Seg Neutrophils # Seg Neutrophils # Man 0.3 L Lymphocytes # (Manual) Monocytes # (Manual) 4.9 H INR POC ABG pH POC ABG pCO2 POC ABG pO2 Potassium 6.6 H* D Chloride Carbon Dioxide 17 L BUN 66 H Creatinine 5.6 H D Glucose 149 H POC Glucose 165 H Lactic Acid Calcium 6.5 L Total Bilirubin 1.90 H AST 782 H ALT 382 H Total Creatine Kinase CK-MB (CK-2) Troponin T Total Protein 5.7 L Albumin 2.7 L Cholesterol LDL Cholesterol Direct HDL Cholesterol Urine WBC (Auto) Crossmatch 03/12/19 03/12/19 03/12/19 07:19 15:24 18:55 WBC RBC Hgb Hct MCV MCHC RDW Plt Count Person # Seg Neuts % (Manual) Lymphocytes % (Manual) Monocytes % (Manual) Nucleated RBC % Seg Neutrophils # Seg Neutrophils # Man Lymphocytes # (Manual) Monocytes # (Manual) INR POC ABG pH POC ABG pCO2 POC ABG pO2 Potassium 6.6 H* Chloride Carbon Dioxide BUN Creatinine Glucose POC Glucose 167 H 212 H Lactic Acid Calcium Total Bilirubin AST ALT Total Creatine Kinase CK-MB (CK-2) Troponin T Total Protein Albumin Cholesterol LDL Cholesterol Direct HDL Cholesterol Urine WBC (Auto) Crossmatch 03/12/19 03/13/19 03/13/19 23:45 05:37 09:11 WBC RBC Hgb Hct MCV MCHC RDW Plt Count Person # Seg Neuts % (Manual) Lymphocytes % (Manual) Monocytes % (Manual) Nucleated RBC % Seg Neutrophils # Seg Neutrophils # Man Lymphocytes # (Manual) Monocytes # (Manual) INR POC ABG pH POC ABG pCO2 POC ABG pO2 Potassium Chloride Carbon Dioxide BUN 52 H Creatinine 5.5 H Glucose 235 H POC Glucose 197 H 250 H Lactic Acid Calcium 6.2 L Total Bilirubin AST ALT Total Creatine Kinase CK-MB (CK-2) Troponin T Total Protein Albumin Cholesterol LDL Cholesterol Direct HDL Cholesterol Urine WBC (Auto) Crossmatch 03/13/19 03/13/19 03/13/19 09:11 11:06 12:38 WBC RBC 1.99 L 2.07 L Hgb 6.4 L 6.6 L Hct 18.7 L* 19.6 L* MCV 95 H MCHC RDW 18.5 H 18.5 H Plt Count 36 L 33 L Person # Seg Neuts % (Manual) Lymphocytes % (Manual) Monocytes % (Manual) Nucleated RBC % Seg Neutrophils # Seg Neutrophils # Man Lymphocytes # (Manual) Monocytes # (Manual) INR POC ABG pH POC ABG pCO2 POC ABG pO2 Potassium Chloride Carbon Dioxide BUN Creatinine Glucose POC Glucose 268 H Lactic Acid Calcium Total Bilirubin AST ALT Total Creatine Kinase CK-MB (CK-2) Troponin T Total Protein Albumin Cholesterol LDL Cholesterol Direct HDL Cholesterol Urine WBC (Auto) Crossmatch 03/13/19 03/13/19 03/13/19 18:11 19:12 20:58 WBC RBC Hgb Hct MCV MCHC RDW Plt Count Person # Seg Neuts % (Manual) Lymphocytes % (Manual) Monocytes % (Manual) Nucleated RBC % Seg Neutrophils # Seg Neutrophils # Man Lymphocytes # (Manual) Monocytes # (Manual) INR POC ABG pH 7.466 H POC ABG pCO2 POC ABG pO2 Potassium Chloride Carbon Dioxide BUN Creatinine Glucose POC Glucose 255 H Lactic Acid Calcium Total Bilirubin AST ALT Total Creatine Kinase CK-MB (CK-2) Troponin T Total Protein Albumin Cholesterol LDL Cholesterol Direct HDL Cholesterol Urine WBC (Auto) Crossmatch See Detail 03/13/19 03/14/19 03/14/19 23:49 05:51 11:39 WBC RBC Hgb Hct MCV MCHC RDW Plt Count Person # Seg Neuts % (Manual) Lymphocytes % (Manual) Monocytes % (Manual) Nucleated RBC % Seg Neutrophils # Seg Neutrophils # Man Lymphocytes # (Manual) Monocytes # (Manual) INR POC ABG pH POC ABG pCO2 POC ABG pO2 Potassium Chloride Carbon Dioxide BUN Creatinine Glucose POC Glucose 289 H 305 H 283 H Lactic Acid Calcium Total Bilirubin AST ALT Total Creatine Kinase CK-MB (CK-2) Troponin T Total Protein Albumin Cholesterol LDL Cholesterol Direct HDL Cholesterol Urine WBC (Auto) Crossmatch 03/14/19 03/14/19 03/15/19 13:43 18:12 00:43 WBC 14.0 H RBC 2.78 L Hgb 8.9 L Hct 26.0 L D MCV MCHC RDW 17.9 H Plt Count 42 L Person # Seg Neuts % (Manual) 2.0 L Lymphocytes % (Manual) 84.0 H Monocytes % (Manual) 13.0 H Nucleated RBC % Seg Neutrophils # Seg Neutrophils # Man 0.3 L Lymphocytes # (Manual) 11.8 H Monocytes # (Manual) 1.8 H INR POC ABG pH POC ABG pCO2 POC ABG pO2 Potassium Chloride Carbon Dioxide BUN Creatinine Glucose POC Glucose 313 H 236 H Lactic Acid Calcium Total Bilirubin AST ALT Total Creatine Kinase CK-MB (CK-2) Troponin T Total Protein Albumin Cholesterol LDL Cholesterol Direct HDL Cholesterol Urine WBC (Auto) Crossmatch 03/15/19 03/15/19 03/15/19 04:24 07:15 07:15 WBC 16.1 H RBC 2.50 L Hgb 8.1 L Hct 23.4 L MCV MCHC 35 H RDW 18.5 H Plt Count 42 L Person # Seg Neuts % (Manual) 2.0 L Lymphocytes % (Manual) 41.0 H Monocytes % (Manual) 11.0 H Nucleated RBC % Seg Neutrophils # Seg Neutrophils # Man 0.3 L Lymphocytes # (Manual) 6.6 H Monocytes # (Manual) 1.8 H INR POC ABG pH 7.497 H POC ABG pCO2 34.0 L POC ABG pO2 Potassium Chloride 96.0 L Carbon Dioxide BUN 47 H Creatinine 5.0 H Glucose 287 H POC Glucose Lactic Acid Calcium 7.2 L D Total Bilirubin AST 522 H ALT 474 H Total Creatine Kinase CK-MB (CK-2) Troponin T Total Protein 5.7 L Albumin 2.4 L Cholesterol LDL Cholesterol Direct HDL Cholesterol Urine WBC (Auto) Crossmatch 03/15/19 03/15/19 07:24 11:18 WBC RBC Hgb Hct MCV MCHC RDW Plt Count Person # Seg Neuts % (Manual) Lymphocytes % (Manual) Monocytes % (Manual) Nucleated RBC % Seg Neutrophils # Seg Neutrophils # Man Lymphocytes # (Manual) Monocytes # (Manual) INR POC ABG pH POC ABG pCO2 POC ABG pO2 Potassium Chloride Carbon Dioxide BUN Creatinine Glucose POC Glucose 285 H 287 H Lactic Acid Calcium Total Bilirubin AST ALT Total Creatine Kinase CK-MB (CK-2) Troponin T Total Protein Albumin Cholesterol LDL Cholesterol Direct HDL Cholesterol Urine WBC (Auto) Crossmatch
[2019-03-16] MEDS: CLEOCIN 900 MG/50 mL 900 MG/50 ML BAG IV SCH ×3 (01:20→16:44)
[2019-03-16] MEDS: HumaLOG SUB-Q SCH ×4 (01:25→17:55)
--- NOTE | 2019-03-16 07:53 | Progress Note ---
Assessment and Plan - Patient Problems (1) Acute on chronic renal failure Current Visit: Yes Status: Acute Qualifiers: Chronic kidney disease stage: stage 3 (moderate) Plan to address problem: secondary to acute tubular necrosis in the setting of cardiac arrest, streptococcal bacteremia . Patient remains anuric. s/p 3 HD treatments , last HD on 03/14. Transition to HD on MWF schedule for volume control/solute clearance. If line holiday needed in view of persistent sepsis/septic shock, recommend to remove vascath after HD tomorrow AM. renal US showed no acute abnormalities. complement levels are normal, ANCA studies pending. UA noted for microscopic hematuria/proteinuria, so will need to r/o GN etiologies. (2) Hyperkalemia Current Visit: Yes Status: Acute Plan to address problem: K improved with HD, cont 2g K renal diet (3) Cardiopulmonary arrest with successful resuscitation Current Visit: Yes Status: Acute Plan to address problem: ROSC in ER about 2 doses of epinephrine. Patient is on Levothroid at this time and cardiology evaluation has been reviewed and noted. Patient also had a repeat echocardiogram done and reviewed with EF 40-45% and impaired relaxation noted. We'll follow up with further recommendations from cardiology standpoint (4) Sepsis Current Visit: Yes Status: Acute Qualifiers: Sepsis type: Streptococcus group B Qualified Code(s): A40.1 - Sepsis due to streptococcus, group B Plan to address problem: Streptococcal bacteremia noted on initial blood cultures. cont ABXs as per ID recommendations, dose meds for HD (5) Metabolic acidosis Current Visit: Yes Status: Acute Plan to address problem: corrected with HD (6) T2DM (type 2 diabetes mellitus) Current Visit: Yes Status: Acute Qualifiers: Diabetes mellitus manager long term care insulin use: unspecified manager long term care insulin use status Plan to address problem: diabetes management per primary attending. Subjective Date of service: 03/16/19 Principal diagnosis: severe sepsis Interval history: Pt remains intubated, on levophed 4mcg/min. Objective - Vital Signs Vital signs: Vital Signs - 12hr 03/15/19 03/15/19 03/15/19 20:00 20:06 20:16 Temperature 99.3 F Pulse Rate 83 81 82 Respiratory 28 H 28 H Rate Blood Pressure 182/38 134/31 197/51 O2 Sat by Pulse 95 97 99 Oximetry 03/15/19 03/15/19 03/15/19 20:30 20:46 21:00 Temperature Pulse Rate 83 82 82 Respiratory 27 H 28 H 28 H Rate Blood Pressure 197/51 160/33 175/82 O2 Sat by Pulse 96 100 97 Oximetry 03/15/19 03/15/19 03/15/19 21:16 21:30 21:45 Temperature Pulse Rate 82 85 86 Respiratory 27 H 29 H 31 H Rate Blood Pressure 163/43 147/40 156/56 O2 Sat by Pulse 98 96 96 Oximetry 03/15/19 03/15/19 03/15/19 22:00 22:16 22:30 Temperature Pulse Rate 89 85 92 H Respiratory 22 28 H 29 H Rate Blood Pressure 156/56 130/66 130/66 O2 Sat by Pulse 96 95 95 Oximetry 03/15/19 03/15/19 03/15/19 22:46 23:00 23:15 Temperature Pulse Rate 90 88 87 Respiratory 27 H 28 H 30 H Rate Blood Pressure 131/41 131/41 140/30 O2 Sat by Pulse 94 95 95 Oximetry 03/15/19 03/15/19 03/15/19 23:20 23:30 23:44 Temperature 99.6 F Pulse Rate 89 90 Respiratory 31 H Rate Blood Pressure 129/42 129/42 O2 Sat by Pulse 96 95 Oximetry 03/15/19 03/16/19 03/16/19 23:46 00:00 00:16 Temperature Pulse Rate 91 H 91 H 92 H Respiratory 33 H 32 H 32 H Rate Blood Pressure 129/42 139/60 152/29 O2 Sat by Pulse 96 96 97 Oximetry 03/16/19 03/16/19 03/16/19 00:30 00:46 01:00 Temperature Pulse Rate 95 H 91 H 91 H Respiratory 32 H 34 H 31 H Rate Blood Pressure 152/29 131/53 131/53 O2 Sat by Pulse 96 95 96 Oximetry 03/16/19 03/16/19 03/16/19 01:16 01:30 01:46 Temperature Pulse Rate 89 89 91 H Respiratory 30 H 29 H 31 H Rate Blood Pressure 140/29 153/29 143/36 O2 Sat by Pulse 98 96 94 Oximetry 03/16/19 03/16/19 03/16/19 02:00 02:16 02:30 Temperature Pulse Rate 94 H 89 92 H Respiratory 30 H 31 H 34 H Rate Blood Pressure 143/36 140/34 140/34 O2 Sat by Pulse 95 99 100 Oximetry 03/16/19 03/16/19 03/16/19 02:46 03:00 03:16 Temperature Pulse Rate 92 H 98 H 95 H Respiratory 35 H 34 H 37 H Rate Blood Pressure 149/29 149/46 162/39 O2 Sat by Pulse 100 100 100 Oximetry 03/16/19 03/16/19 03/16/19 03:22 03:30 03:36 Temperature 100.9 F H Pulse Rate 95 H 97 H Respiratory 34 H Rate Blood Pressure 162/39 149/29 O2 Sat by Pulse 100 99 Oximetry 03/16/19 03/16/19 03/16/19 03:45 04:00 04:16 Temperature Pulse Rate 92 H 91 H 96 H Respiratory 30 H 34 H 30 H Rate Blood Pressure 145/55 145/55 126/24 O2 Sat by Pulse 99 100 100 Oximetry 03/16/19 03/16/19 03/16/19 04:30 04:46 05:00 Temperature Pulse Rate 92 H 90 95 H Respiratory 33 H 30 H 30 H Rate Blood Pressure 151/22 139/25 140/26 O2 Sat by Pulse 93 96 95 Oximetry 03/16/19 03/16/19 03/16/19 05:16 05:30 05:45 Temperature Pulse Rate 90 91 H 92 H Respiratory 31 H 30 H 30 H Rate Blood Pressure 142/19 135/27 119/34 O2 Sat by Pulse 94 95 94 Oximetry 03/16/19 03/16/19 03/16/19 06:00 06:15 06:30 Temperature Pulse Rate 90 89 89 Respiratory 30 H 28 H 29 H Rate Blood Pressure 119/39 135/26 125/35 O2 Sat by Pulse 95 96 95 Oximetry 03/16/19 03/16/19 03/16/19 06:45 07:00 07:15 Temperature Pulse Rate 86 84 86 Respiratory 31 H 27 H 27 H Rate Blood Pressure 129/31 140/26 120/27 O2 Sat by Pulse 95 95 95 Oximetry 03/16/19 07:29 Temperature Pulse Rate 89 Respiratory Rate Blood Pressure 110/32 O2 Sat by Pulse 94 Oximetry - General Appearance General appearance: well-developed, well-nourished, obese, sedated on ventilator, intubated EENT: ATNC, mucous membranes moist Neck: no JVD Respiratory: Present: Decreased Breath Sounds Cardiology: regular, S1S2 Gastrointestinal: normoactive bowel sounds Integumentary: no rash, other (2+ edema b/l LE ) Neurologic: other (intubated, sedated ) - Lab 03/15/19 07:15 03/15/19 07:15 Most recent lab results Calcium 7.2 mg/dL (8.4-10.2) L D 03/15/19 07:15 Medications & Allergies - Medications Allergies/Adverse Reactions: Allergies No Known Allergies Allergy (Verified 03/10/19 17:37) Home Medications: Home Medications Medication Instructions Recorded Confirmed Last Taken Type Allopurinol [Zyloprim] 300 mg PO DAILY 03/10/19 03/10/19 Unknown History Aspirin [Adult Aspirin] 81 mg PO DAILY 03/10/19 03/10/19 Unknown History Atorvastatin [Lipitor Tab] 80 mg PO DAILY 03/10/19 03/10/19 Unknown History Carvedilol [Coreg] 12.5 mg PO BID 03/10/19 03/10/19 Unknown History Clopidogrel [Plavix] 75 mg PO DAILY 03/10/19 03/10/19 Unknown History Gabapentin [Neurontin] 300 mg PO BID 03/10/19 03/10/19 Unknown History Insulin Lispro Protamin/Lispro 33 unit SQ BID 03/10/19 03/10/19 Unknown History [Humalog Mix 75-25 Vial] Lisinopril [Zestril TAB] 10 mg PO DAILY 03/10/19 03/10/19 Unknown History Pantoprazole [Protonix] 40 mg PO DAILY 03/10/19 03/10/19 Unknown History Sitagliptin Phosphate [Januvia] 50 mg PO DAILY 03/10/19 03/10/19 Unknown History Active Medications: Generic Name Dose Route Start Last Admin Trade Name Freq PRN Reason Stop Dose Admin Acetaminophen 650 mg 03/11/19 00:40 03/15/19 00:49 Tylenol PO 650 mg Q4H PRN Administration Pain MILD(1-3)/Fever >100.5/[place] Acetaminophen 650 mg 03/11/19 00:40 03/12/19 04:53 Tylenol ME 650 mg Q4H PRN Administration Pain MILD(1-3)/Fever >100.5/[place] Albumin Human 12.5 gm 03/13/19 09:29 Alburx 25% (Albumin) IV DUKE PRN Hypotension Lipase/Protease/Amylase 1 each 03/15/19 13:[address] 10,500 Unit FEEDTUBE PRN PRN For Clogged Feeding Tube Dextrose 50 ml 03/11/19 00:44 D50w (25gm) Syringe IV PRN PRN Hypoglycemia Fentanyl 50 mcg 03/11/19 07:50 Sublimaze IV Q10MIN PRN ANALGESIA Hydrophilic Ointment 1 applic 03/10/19 19:50 Vaseline Lip Therapy TP Q2HR PRN Dry Lips Propofol 1,000 mg in 100 mls @ 4.082 mls/hr 03/10/19 20:00 03/11/19 14:30 Diprivan 10 Mg/Ml IV Infused TITR ROXANNE Titration Protocol 5 MCG/KG/MIN Norepinephrine 4 mg in 250 mls @ 7.5 mls/hr 03/10/19 21:00 03/15/19 20:30 Levophed Drip 4 Mg/Ns 250 Ml IV 0 mcg/min TITR ROXANNE 0 mls/hr Titration Protocol 2 MCG/MIN Fentanyl Citrate 2,000 mcg in 100 mls @ 6.804 mls/hr 03/11/19 08:00 03/11/19 19:43 Fentanyl Drip Premix IV 0 mcg/kg/hr TITR ROXANNE 0 mls/hr Titration Protocol 1 MCG/KG/HR Ceftriaxone Sodium 2 gm in 100 mls @ 200 mls/hr 03/11/19 13:00 03/15/19 22:10 Rocephin/Ns 2 Gm/100 Ml IV 200 mls/hr Q12HR ROXANNE Administration Protocol Clindamycin HCl 900 mg in 50 mls @ 100 mls/hr 03/13/19 09:00 03/16/19 01:20 Cleocin 900 Mg/50 Ml IV 100 mls/hr Q8H ROXANNE Administration Sodium Chloride 100 mls @ 999 mls/hr 03/15/19 08:11 Nacl 0.9% IV DUKE PRN Hypotension Insulin Glargine 24 units 03/15/19 10:00 03/15/19 09:40 Lantus SUB-Q 24 units DAILY ROXANNE Administration Insulin Human Lispro 0 unit 03/11/19 06:00 03/16/19 06:29 Humalog SUB-Q 6 unit Q6HR ROXANNE Administration Protocol Multi-Ingred Cream/Lotion/Oil/Oint 1 applic 03/10/19 19:50 Artificial Tears Ophth Oint OU Q4HR PRN Dry Eye(s) Ondansetron HCl 4 mg 03/11/19 00:40 Zofran IV Q8H PRN Nausea And Vomiting Pantoprazole Sodium 40 mg 03/15/19 10:00 03/15/19 09:39 Protonix IV 40 mg QDAY ROXANNE Administration Simple Syrup 15 ml 03/15/19 13:21 Simple Syrup FEEDTUBE PRN PRN Hypoglycemia Simple Syrup 30 ml 03/15/19 13:21 Simple Syrup FEEDTUBE PRN PRN Hypoglycemia Sodium Bicarbonate 325 mg 03/15/19 13:21 Sodium Bicarbonate FEEDTUBE PRN PRN For Clogged Feeding Tube Sodium Chloride 10 ml 03/11/19 10:00 03/15/19 22:10 Sodium Chloride Flush Syringe 10 Ml IV 10 ml BID ROXANNE Administration Sodium Chloride 10 ml 03/11/19 00:40 Sodium Chloride Flush Syringe 10 Ml IV PRN PRN LINE FLUSH
--- NOTE | 2019-03-16 07:55 | XRay Report ---
PROCEDURE: XR CHEST 1V AP TECHNIQUE: Chest radiograph single view. HISTORY: follow up respiratory failure COMPARISONS: CXR dated March 15, 2019 . FINDINGS: Current Exam: CXR dated March 16, 2019 at 1:47 AM. ET tube in situ with distal tip approximately 5.5 cm above the maureen (adequate position). Left internal jugular central venous catheter with distal tip in SVC (adequate position). Recommend c areful clinical correlation to ensure venous blood return. Shallow inspiratory effort with resultant prominence of the bronchopulmonary markings and widening of the cardiac silhouette. Note that mild CHF or volume overload cannot be excluded in this radiographi c setting. Clinical correlation is advised. No gross focal lung consolidation, pleural effusion, or pneumothorax. The visualized bony structures are within normal limits. IMPRESSION: - Shallow inspiratory effort with resultant prominence of the bronchopulmonary markings and widening of the cardiac silhouette; DDX includes mild CHF or volume overload in the appropriate clinical setti ng (with interval improvement since the previous exam). Recommend clinical correlation and appropriat e followup evaluation as clinically warranted to ensure complete clearance. - No focal lung consolidation, pleural effusion, or pneumothorax seen. This document is electronically signed by Andrew Waters MD., March 16 2019 07:53:37 AM ET
--- NOTE | 2019-03-16 09:35 | Progress Note ---
Assessment and Plan -s/p Cardiopulmonary arrest with ROSC -Acute on chronic hypoxemic respiratory failure on MVS -Severe sepsis with septic shock - Streptococcal -Acute on chronic renal failure (multifactorial) -Acute metabolic-toxic encephalopathy -Morbid obesity -h/o CAD s/p 2 stents -Pancytopenia- probably secondary to sepsis and underlying chronic liver disease -Type 2 DM -h/o Alcohol abuse disorder -EEG pending -Stress dose steroids for possible sepsis induced relative adrenal insufficiency( 5 days of therapy then disconitnue) -Lung protective strategies -Serial CXR and ABG -VAP bundle addressed -Critical care bundles addressed -Daily SATs and SBTs as tolerated -Supplemental oxygen to keep O2 sats 90-92% -Bronchodilators -Accuchecks with glycemic control. Target blood glucose <180mg/dL -Enteric nutrition with aspiration precautions, HOB>40 -Agitation management -Titrate sedation to RAAS 0 to -1 -Prevention of delirium, maintenance of sleep-wake cycle -Antibiotic therapy per ID -Trend hematologic indices -Avoid nephrotoxic agents, adjust all antibiotics and medications for CrCL and GFR -VTE ( SCDs) and Stress ulcer prophylaxis CONDITION: CRITICAL PROGNOSIS: GUARDED CODE STATUS: FULL CODE Discussed extensively with the patient's daughter and his sister who were at the bedside. All their questions were answered. Discussed with the Renal service and with RT/RN The high probability of a clinically significant, sudden or life-threatening deterioration of the [respiratory, cardiovascular, renal, neurology] system(s) required my full and direct attention, intervention and personal management. The aggregate critical care time was [35 ] minutes without overlap. Time includes spent on; [x] Data Review and interpretation [x] Patient assessment and monitoring of vital signs [x] Documentation [x] Medication orders and management Subjective Date of service: 03/16/19 Principal diagnosis: severe sepsis Interval history: Patient is seen today for: s/p cardiopulmonary arrest, acute hypoxemic respiratory failure, ISMAEL, Severe hyperkalemia, Severe sepsis; ISMAEL onCKD on HD Seen and examined at bedside; 24hour events reviewed; nursing and respiratory care staff consulted; no adverse overnight events reported to me; vitals, labs, medications, chart reviewed. Temperature spike to 100.4, no vomiting, opens eyes spontaneously Remains critically ill. On full mechanical ventilatory support AC 12/450/6/35% ABG 7.50/34/86/26 Off bicarbonate infusion s/p 3 sessions of daily HD. Tolerated PSV trials yesterday ETT 7.5cm at 23cm at the lip. Off fentanyl infusion, remains unresponsive Off vasopressor support Discussed with RT/RN at the bedside Objective Vital Signs - 12hr 03/15/19 03/15/19 03/15/19 21:45 22:00 22:16 Temperature Pulse Rate 86 89 85 Respiratory 31 H 22 28 H Rate Blood Pressure 156/56 156/56 130/66 O2 Sat by Pulse 96 96 95 Oximetry 03/15/19 03/15/19 03/15/19 22:30 22:46 23:00 Temperature Pulse Rate 92 H 90 88 Respiratory 29 H 27 H 28 H Rate Blood Pressure 130/66 131/41 131/41 O2 Sat by Pulse 95 94 95 Oximetry 03/15/19 03/15/19 03/15/19 23:15 23:20 23:30 Temperature Pulse Rate 87 89 90 Respiratory 30 H 31 H Rate Blood Pressure 140/30 129/42 129/42 O2 Sat by Pulse 95 96 95 Oximetry 03/15/19 03/15/19 03/16/19 23:44 23:46 00:00 Temperature 99.6 F Pulse Rate 91 H 91 H Respiratory 33 H 32 H Rate Blood Pressure 129/42 139/60 O2 Sat by Pulse 96 96 Oximetry 03/16/19 03/16/19 03/16/19 00:16 00:30 00:46 Temperature Pulse Rate 92 H 95 H 91 H Respiratory 32 H 32 H 34 H Rate Blood Pressure 152/29 152/29 131/53 O2 Sat by Pulse 97 96 95 Oximetry 03/16/19 03/16/19 03/16/19 01:00 01:16 01:30 Temperature Pulse Rate 91 H 89 89 Respiratory 31 H 30 H 29 H Rate Blood Pressure 131/53 140/29 153/29 O2 Sat by Pulse 96 98 96 Oximetry 03/16/19 03/16/19 03/16/19 01:46 02:00 02:16 Temperature Pulse Rate 91 H 94 H 89 Respiratory 31 H 30 H 31 H Rate Blood Pressure 143/36 143/36 140/34 O2 Sat by Pulse 94 95 99 Oximetry 03/16/19 03/16/19 03/16/19 02:30 02:46 03:00 Temperature Pulse Rate 92 H 92 H 98 H Respiratory 34 H 35 H 34 H Rate Blood Pressure 140/34 149/29 149/46 O2 Sat by Pulse 100 100 100 Oximetry 03/16/19 03/16/19 03/16/19 03:16 03:22 03:30 Temperature Pulse Rate 95 H 95 H 97 H Respiratory 37 H 34 H Rate Blood Pressure 162/39 162/39 149/29 O2 Sat by Pulse 100 100 99 Oximetry 03/16/19 03/16/19 03/16/19 03:36 03:45 04:00 Temperature 100.9 F H Pulse Rate 92 H 91 H Respiratory 30 H 34 H Rate Blood Pressure 145/55 145/55 O2 Sat by Pulse 99 100 Oximetry 03/16/19 03/16/19 03/16/19 04:16 04:30 04:46 Temperature Pulse Rate 96 H 92 H 90 Respiratory 30 H 33 H 30 H Rate Blood Pressure 126/24 151/22 139/25 O2 Sat by Pulse 100 93 96 Oximetry 03/16/19 03/16/19 03/16/19 05:00 05:16 05:30 Temperature Pulse Rate 95 H 90 91 H Respiratory 30 H 31 H 30 H Rate Blood Pressure 140/26 142/19 135/27 O2 Sat by Pulse 95 94 95 Oximetry 03/16/19 03/16/19 03/16/19 05:45 06:00 06:15 Temperature Pulse Rate 92 H 90 89 Respiratory 30 H 30 H 28 H Rate Blood Pressure 119/34 119/39 135/26 O2 Sat by Pulse 94 95 96 Oximetry 03/16/19 03/16/19 03/16/19 06:30 06:45 07:00 Temperature Pulse Rate 89 86 84 Respiratory 29 H 31 H 27 H Rate Blood Pressure 125/35 129/31 140/26 O2 Sat by Pulse 95 95 95 Oximetry 03/16/19 03/16/19 03/16/19 07:15 07:29 07:30 Temperature Pulse Rate 86 89 87 Respiratory 27 H 28 H Rate Blood Pressure 120/27 110/32 129/31 O2 Sat by Pulse 95 94 93 Oximetry 03/16/19 03/16/19 07:45 08:00 Temperature 100.4 F H Pulse Rate 93 H 86 Respiratory 26 H 27 H Rate Blood Pressure 110/39 129/27 O2 Sat by Pulse 95 94 Oximetry Constitutional: no acute distress, other (m,iddle aged morbidly obese CM, normocephalic with mildly increased resp effort at rest on MVS) Eyes: non-icteric ENT: oropharynx moist, other (ETT 7.5 at 23 cm at the lip) Neck: supple, no lymphadenopathy, no JVD, other (large neck circumference) Effort: mildly labored Ascultation: Bilateral: diminished breath sounds, rhonchi (bases) Percussion: Bilateral: not dull Cardiovascular: regular rate and rhythm, other (No R/M) Gastrointestinal: normoactive bowel sounds, soft, non-tender, non-distended Integumentary: normal Extremities: no cyanosis, pink and warm, pulses normal, no ischemia or petechiae Neurologic: pupils equal and round, unable to assess, other (Encephalopathic) Psychiatric: other (unable to assess) CBC and BMP: 03/18/19 05:45 03/19/19 06:15 ABG, PT/INR, D-dimer: ABG POC ABG pH 7.487 (7.35-7.45) H 03/16/19 03:49 POC ABG pCO2 34.3 (35-45) L 03/16/19 03:49 POC ABG pO2 254 (80-105) H 03/16/19 03:49 POC ABG HCO3 25.9 (22-26 mml/L) 03/16/19 03:49 POC ABG Total CO2 27 (23-27mmol/L) 03/16/19 03:49 POC ABG O2 Sat 100 03/16/19 03:49 PT/INR, D-dimer PT 14.4 Sec. (12.2-14.9) 03/10/19 17:57 INR 1.15 (0.87-1.13) H 03/10/19 17:57 Abnormal lab findings: Abnormal Labs 03/10/19 03/10/19 03/10/19 17:57 17:57 17:57 WBC 1.2 L* RBC 2.46 L Hgb 7.9 L Hct 23.2 L MCV MCHC RDW 18.2 H Plt Count 47 L [place] # 0.9 H Seg Neuts % (Manual) 6.0 L Lymphocytes % (Manual) 74.0 H Monocytes % (Manual) 20.0 H Nucleated RBC % Seg Neutrophils # 0.1 L Seg Neutrophils # Man 0.1 L Lymphocytes # (Manual) 0.9 L Monocytes # (Manual) INR POC ABG pH POC ABG pCO2 POC ABG pO2 Potassium Chloride Carbon Dioxide BUN 46 H Creatinine 2.9 H Glucose 200 H POC Glucose Lactic Acid 2.50 H* Calcium 7.6 L Total Bilirubin AST ALT Total Creatine Kinase CK-MB (CK-2) Troponin T Total Protein Albumin 3.2 L Cholesterol LDL Cholesterol Direct HDL Cholesterol Urine WBC (Auto) Crossmatch 03/10/19 03/10/19 03/10/19 17:57 18:01 18:52 WBC RBC Hgb Hct MCV MCHC RDW Plt Count [place] # Seg Neuts % (Manual) Lymphocytes % (Manual) Monocytes % (Manual) Nucleated RBC % Seg Neutrophils # Seg Neutrophils # Man Lymphocytes # (Manual) Monocytes # (Manual) INR 1.15 H POC ABG pH POC ABG pCO2 POC ABG pO2 Potassium Chloride Carbon Dioxide BUN Creatinine Glucose POC Glucose 234 H Lactic Acid Calcium Total Bilirubin AST ALT Total Creatine Kinase CK-MB (CK-2) Troponin T Total Protein Albumin Cholesterol LDL Cholesterol Direct HDL Cholesterol Urine WBC (Auto) Crossmatch See Detail 03/10/19 03/10/19 03/10/19 19:16 20:56 21:32 WBC RBC Hgb Hct MCV MCHC RDW Plt Count [place] # Seg Neuts % (Manual) Lymphocytes % (Manual) Monocytes % (Manual) Nucleated RBC % Seg Neutrophils # Seg Neutrophils # Man Lymphocytes # (Manual) Monocytes # (Manual) INR POC ABG pH 7.274 L POC ABG pCO2 46.6 H POC ABG pO2 315 H Potassium Chloride Carbon Dioxide BUN Creatinine Glucose POC Glucose Lactic Acid 2.80 H* Calcium Total Bilirubin AST ALT Total Creatine Kinase CK-MB (CK-2) Troponin T Total Protein Albumin Cholesterol LDL Cholesterol Direct HDL Cholesterol Urine WBC (Auto) Crossmatch 03/10/19 03/10/19 03/11/19 23:06 23:29 00:50 WBC RBC Hgb Hct MCV MCHC RDW Plt Count [place] # Seg Neuts % (Manual) Lymphocytes % (Manual) Monocytes % (Manual) Nucleated RBC % Seg Neutrophils # Seg Neutrophils # Man Lymphocytes # (Manual) Monocytes # (Manual) INR POC ABG pH POC ABG pCO2 POC ABG pO2 Potassium Chloride Carbon Dioxide BUN Creatinine Glucose POC Glucose 237 H Lactic Acid Calcium Total Bilirubin AST ALT Total Creatine Kinase 513 H CK-MB (CK-2) Troponin T 0.075 H Total Protein Albumin Cholesterol < 4 L LDL Cholesterol Direct 4 L HDL Cholesterol < 3 L Urine WBC (Auto) 24.0 H Crossmatch 03/11/19 03/11/19 03/11/19 05:01 05:01 06:06 WBC RBC 2.29 L Hgb 7.3 L Hct 22.2 L MCV 97 H MCHC RDW 18.2 H Plt Count 40 L [place] # Seg Neuts % (Manual) 8.0 L Lymphocytes % (Manual) 67.0 H Monocytes % (Manual) 24.0 H Nucleated RBC % 5.0 H Seg Neutrophils # Seg Neutrophils # Man 0.4 L Lymphocytes # (Manual) Monocytes # (Manual) 1.2 H INR POC ABG pH POC ABG pCO2 32.8 L POC ABG pO2 Potassium 5.3 H Chloride Carbon Dioxide 19 L BUN 49 H Creatinine 3.7 H Glucose 203 H POC Glucose Lactic Acid Calcium 7.1 L Total Bilirubin AST ALT Total Creatine Kinase CK-MB (CK-2) Troponin T Total Protein Albumin Cholesterol LDL Cholesterol Direct HDL Cholesterol Urine WBC (Auto) Crossmatch 03/11/19 03/11/19 03/11/19 06:07 06:35 13:07 WBC RBC Hgb Hct MCV MCHC RDW Plt Count [place] # Seg Neuts % (Manual) Lymphocytes % (Manual) Monocytes % (Manual) Nucleated RBC % Seg Neutrophils # Seg Neutrophils # Man Lymphocytes # (Manual) Monocytes # (Manual) INR POC ABG pH POC ABG pCO2 POC ABG pO2 Potassium Chloride Carbon Dioxide BUN Creatinine Glucose POC Glucose 209 H 185 H Lactic Acid Calcium Total Bilirubin AST ALT Total Creatine Kinase 1156 H CK-MB (CK-2) 4.6 H Troponin T 0.077 H Total Protein Albumin Cholesterol LDL Cholesterol Direct HDL Cholesterol Urine WBC (Auto) Crossmatch 03/11/19 03/11/19 03/12/19 18:36 23:45 04:25 WBC RBC Hgb Hct MCV MCHC RDW Plt Count [place] # Seg Neuts % (Manual) Lymphocytes % (Manual) Monocytes % (Manual) Nucleated RBC % Seg Neutrophils # Seg Neutrophils # Man Lymphocytes # (Manual) Monocytes # (Manual) INR POC ABG pH 7.320 L POC ABG pCO2 POC ABG pO2 Potassium Chloride Carbon Dioxide BUN Creatinine Glucose POC Glucose 126 H 137 H Lactic Acid Calcium Total Bilirubin AST ALT Total Creatine Kinase CK-MB (CK-2) Troponin T Total Protein Albumin Cholesterol LDL Cholesterol Direct HDL Cholesterol Urine WBC (Auto) Crossmatch 03/12/19 03/12/19 03/12/19 05:06 05:06 05:57 WBC RBC 2.24 L Hgb 7.2 L Hct 21.9 L MCV 98 H MCHC RDW 18.3 H Plt Count 38 L [place] # Seg Neuts % (Manual) 4.0 L Lymphocytes % (Manual) Monocytes % (Manual) 69.0 H Nucleated RBC % Seg Neutrophils # Seg Neutrophils # Man 0.3 L Lymphocytes # (Manual) Monocytes # (Manual) 4.9 H INR POC ABG pH POC ABG pCO2 POC ABG pO2 Potassium 6.6 H* D Chloride Carbon Dioxide 17 L BUN 66 H Creatinine 5.6 H D Glucose 149 H POC Glucose 165 H Lactic Acid Calcium 6.5 L Total Bilirubin 1.90 H AST 782 H ALT 382 H Total Creatine Kinase CK-MB (CK-2) Troponin T Total Protein 5.7 L Albumin 2.7 L Cholesterol LDL Cholesterol Direct HDL Cholesterol Urine WBC (Auto) Crossmatch 03/12/19 03/12/19 03/12/19 07:19 15:24 18:55 WBC RBC Hgb Hct MCV MCHC RDW Plt Count [place] # Seg Neuts % (Manual) Lymphocytes % (Manual) Monocytes % (Manual) Nucleated RBC % Seg Neutrophils # Seg Neutrophils # Man Lymphocytes # (Manual) Monocytes # (Manual) INR POC ABG pH POC ABG pCO2 POC ABG pO2 Potassium 6.6 H* Chloride Carbon Dioxide BUN Creatinine Glucose POC Glucose 167 H 212 H Lactic Acid Calcium Total Bilirubin AST ALT Total Creatine Kinase CK-MB (CK-2) Troponin T Total Protein Albumin Cholesterol LDL Cholesterol Direct HDL Cholesterol Urine WBC (Auto) Crossmatch 03/12/19 03/13/19 03/13/19 23:45 05:37 09:11 WBC RBC Hgb Hct MCV MCHC RDW Plt Count [place] # Seg Neuts % (Manual) Lymphocytes % (Manual) Monocytes % (Manual) Nucleated RBC % Seg Neutrophils # Seg Neutrophils # Man Lymphocytes # (Manual) Monocytes # (Manual) INR POC ABG pH POC ABG pCO2 POC ABG pO2 Potassium Chloride Carbon Dioxide BUN 52 H Creatinine 5.5 H Glucose 235 H POC Glucose 197 H 250 H Lactic Acid Calcium 6.2 L Total Bilirubin AST ALT Total Creatine Kinase CK-MB (CK-2) Troponin T Total Protein Albumin Cholesterol LDL Cholesterol Direct HDL Cholesterol Urine WBC (Auto) Crossmatch 03/13/19 03/13/19 03/13/19 09:11 11:06 12:38 WBC RBC 1.99 L 2.07 L Hgb 6.4 L 6.6 L Hct 18.7 L* 19.6 L* MCV 95 H MCHC RDW 18.5 H 18.5 H Plt Count 36 L 33 L [place] # Seg Neuts % (Manual) Lymphocytes % (Manual) Monocytes % (Manual) Nucleated RBC % Seg Neutrophils # Seg Neutrophils # Man Lymphocytes # (Manual) Monocytes # (Manual) INR POC ABG pH POC ABG pCO2 POC ABG pO2 Potassium Chloride Carbon Dioxide BUN Creatinine Glucose POC Glucose 268 H Lactic Acid Calcium Total Bilirubin AST ALT Total Creatine Kinase CK-MB (CK-2) Troponin T Total Protein Albumin Cholesterol LDL Cholesterol Direct HDL Cholesterol Urine WBC (Auto) Crossmatch 03/13/19 03/13/19 03/13/19 18:11 19:12 20:58 WBC RBC Hgb Hct MCV MCHC RDW Plt Count [place] # Seg Neuts % (Manual) Lymphocytes % (Manual) Monocytes % (Manual) Nucleated RBC % Seg Neutrophils # Seg Neutrophils # Man Lymphocytes # (Manual) Monocytes # (Manual) INR POC ABG pH 7.466 H POC ABG pCO2 POC ABG pO2 Potassium Chloride Carbon Dioxide BUN Creatinine Glucose POC Glucose 255 H Lactic Acid Calcium Total Bilirubin AST ALT Total Creatine Kinase CK-MB (CK-2) Troponin T Total Protein Albumin Cholesterol LDL Cholesterol Direct HDL Cholesterol Urine WBC (Auto) Crossmatch See Detail 03/13/19 03/14/19 03/14/19 23:49 05:51 11:39 WBC RBC Hgb Hct MCV MCHC RDW Plt Count [place] # Seg Neuts % (Manual) Lymphocytes % (Manual) Monocytes % (Manual) Nucleated RBC % Seg Neutrophils # Seg Neutrophils # Man Lymphocytes # (Manual) Monocytes # (Manual) INR POC ABG pH POC ABG pCO2 POC ABG pO2 Potassium Chloride Carbon Dioxide BUN Creatinine Glucose POC Glucose 289 H 305 H 283 H Lactic Acid Calcium Total Bilirubin AST ALT Total Creatine Kinase CK-MB (CK-2) Troponin T Total Protein Albumin Cholesterol LDL Cholesterol Direct HDL Cholesterol Urine WBC (Auto) Crossmatch 06/03/14/19 03/15/19 13:43 18:12 00:43 WBC 14.0 H RBC 2.78 L Hgb 8.9 L Hct 26.0 L D MCV MCHC RDW 17.9 H Plt Count 42 L [place] # Seg Neuts % (Manual) 2.0 L Lymphocytes % (Manual) 84.0 H Monocytes % (Manual) 13.0 H Nucleated RBC % Seg Neutrophils # Seg Neutrophils # Man 0.3 L Lymphocytes # (Manual) 11.8 H Monocytes # (Manual) 1.8 H INR POC ABG pH POC ABG pCO2 POC ABG pO2 Potassium Chloride Carbon Dioxide BUN Creatinine Glucose POC Glucose 313 H 236 H Lactic Acid Calcium Total Bilirubin AST ALT Total Creatine Kinase CK-MB (CK-2) Troponin T Total Protein Albumin Cholesterol LDL Cholesterol Direct HDL Cholesterol Urine WBC (Auto) Crossmatch 03/15/19 03/15/19 03/15/19 04:24 07:15 07:15 WBC 16.1 H RBC 2.50 L Hgb 8.1 L Hct 23.4 L MCV MCHC 35 H RDW 18.5 H Plt Count 42 L [place] # Seg Neuts % (Manual) 2.0 L Lymphocytes % (Manual) 41.0 H Monocytes % (Manual) 11.0 H Nucleated RBC % Seg Neutrophils # Seg Neutrophils # Man 0.3 L Lymphocytes # (Manual) 6.6 H Monocytes # (Manual) 1.8 H INR POC ABG pH 7.497 H POC ABG pCO2 34.0 L POC ABG pO2 Potassium Chloride 96.0 L Carbon Dioxide BUN 47 H Creatinine 5.0 H Glucose 287 H POC Glucose Lactic Acid Calcium 7.2 L D Total Bilirubin AST 522 H ALT 474 H Total Creatine Kinase CK-MB (CK-2) Troponin T Total Protein 5.7 L Albumin 2.4 L Cholesterol LDL Cholesterol Direct HDL Cholesterol Urine WBC (Auto) Crossmatch 03/15/19 03/15/19 03/15/19 07:24 11:18 17:12 WBC RBC Hgb Hct MCV MCHC RDW Plt Count [place] # Seg Neuts % (Manual) Lymphocytes % (Manual) Monocytes % (Manual) Nucleated RBC % Seg Neutrophils # Seg Neutrophils # Man Lymphocytes # (Manual) Monocytes # (Manual) INR POC ABG pH POC ABG pCO2 POC ABG pO2 Potassium Chloride Carbon Dioxide BUN Creatinine Glucose POC Glucose 285 H 287 H 221 H Lactic Acid Calcium Total Bilirubin AST ALT Total Creatine Kinase CK-MB (CK-2) Troponin T Total Protein Albumin Cholesterol LDL Cholesterol Direct HDL Cholesterol Urine WBC (Auto) Crossmatch 03/15/19 03/16/19 03/16/19 23:19 03:49 05:26 WBC RBC Hgb Hct MCV MCHC RDW Plt Count [place] # Seg Neuts % (Manual) Lymphocytes % (Manual) Monocytes % (Manual) Nucleated RBC % Seg Neutrophils # Seg Neutrophils # Man Lymphocytes # (Manual) Monocytes # (Manual) INR POC ABG pH 7.487 H POC ABG pCO2 34.3 L POC ABG pO2 254 H Potassium Chloride Carbon Dioxide BUN Creatinine Glucose POC Glucose 297 H 271 H Lactic Acid Calcium Total Bilirubin AST ALT Total Creatine Kinase CK-MB (CK-2) Troponin T Total Protein Albumin Cholesterol LDL Cholesterol Direct HDL Cholesterol Urine WBC (Auto) Crossmatch Chest x-ray: image reviewed Allied health notes reviewed: nursing
--- NOTE | 2019-03-16 09:42 | Progress Note ---
Assessment and Plan Assessment and plan: 54-year-old man admitted history of hypertension, diabetes, chronic kidney disease, coronary artery disease was brought to the emergency room for evaluation of shortness of breath, generalized body aches. and daughter at bedside state that he's been sick for a month and a half. Also complaining of chills. She states that he had diarrhea for one month, got worse. + Decrease oral intake AND SOME FACIAL/ORAL PAIN Chest x-ray was ordered in the emergency room, while the biofuels production technician was trying to get help to get the x-ray done, upon return to the room, the patient was not breathing. He was successfully resuscitated, intubated. He was started on vancomycin, Zosyn and levophed drip. Admitted for Acute resp failure s/p cardiac arrest and Septic shock. Same condition. Daughter reports he has had worsening leg edema and increasing abdominal girth for last 2 months. Daughter denies sick contacts. initial imaging CXR shows cardiac silhouette is enlarged. No evidence of airspace consolidation or pleural effusions. CT chest without contrast shows pericardial effusion measuring up to 1.4 cm in transverse diameter, posterior atelectasis both lungs. Minimal pleural fluid collection. CT head some indistinctness and loss of dean-white matter differentiation and indistinct visualization of the basal ganglia. Cultures: GAS bactermia Negative Influenza test Acute Hypoxic Respiratory Failure: On mechanical ventilation >96hrs. Pulmonary following Severe Sepsis with Shock: Continues on pressors. ?Peridental abscess vs Group A strep. ID following, continues on abx, No evidence of Endocarditis on TTE DM type 2 with hyperglycemia-POA: ADJUST Lantus and adjust sliding scale Insulin ?Some Jerking activity following NGT ?seizure, ?diffused hypoxic ischemic brain injury: Consult Neurology Thrombocytopenia ?DIC secondary to underlying condition: Hold Antiplatelets S/P Cardiac arrest -PEA Rhythm, In the radiology suite shortly after presentation to the ED. Pericardia effusion: Cardiology following CKD 4 possible progression to ESRD: CONTINUE HD, FEMO VAS CATH IN PLACE, Morbid obesity: Counselling when more awake Severe Protein calorie malnutrition: Retail Key Holder consult Acute Metabolic Encephalopathy: Neurology consulted ?ischemic brain injury Diarrhea-C,DIFF RULED OUT- FMS SHOCK LIVER-HEPATIC FAILURE- CAD-POA Sacral Pressure ulcer- Wound care consult poor prognosis No family at bedside, case discussed with Facing Slitter The high probability of a clinically significant, sudden or life threatening deterioration of the [PULMONARY, CARDIAC, HEAMTOLOGY, RENAL, INDUSTRIAL RELATIONS DIRECTOR, HEPATIC] system(s) required my full and direct attention, intervention and personal management. The aggregate critical care time was [35] minutes. This time is in addition to time spent performing reported procedures but includes the following: [X] Data Review and interpretation [X] Patient assessment and monitoring of vital signs [X] Documentation [X] Medication orders and management History Interval history: Patient seen and examiend, remains on pressors, lethargic, still with diarrhea. FMS in place Hospitalist Physical - Physical exam Narrative exam: General appearance: Present: mild distress, well-nourished, obese - EENT Eyes: Present: PERRL ENT: hearing intact, other (ALTHOUGH LETHARGIC, STILL ATTEMPTS TO OPEN EYE ON PROMPTING) - Neck Neck: Present: supple, normal ROM - Respiratory Respiratory effort: other (ON MECHANICAL VENTILATION) Respiratory: bilateral: diminished - Cardiovascular Rhythm: irregularly irregular Heart Sounds: Present: S1 & S2, systolic murmur - Extremities Extremities: no ischemia, pulses intact, pulses symmetrical Extremity abnormal: edema (+2) Peripheral Pulses: within normal limits - Abdominal General gastrointestinal: soft, distended, normal bowel sounds - Integumentary Integumentary: Present:skin excoriations warm, dry - Psychiatric Psychiatric: other (UNABLE TO ACCCESS) - Neurologic Neurologic: other (UNABLE TO ACCESS) - Constitutional Vitals: Temp Pulse Resp BP Pulse Ox 100.4 F H 86 27 H 129/27 94 03/16/19 08:00 03/16/19 08:00 03/16/19 08:00 03/16/19 08:00 03/16/19 08:00 General appearance: Present: mild distress, well-nourished, obese Results - Labs CBC & Chem 7: 03/17/19 05:30 03/17/19 05:30 Labs: Laboratory Last Values WBC 16.1 K/mm3 (4.5-11.0) H 03/15/19 07:15 RBC 2.50 M/mm3 (3.65-5.03) L 03/15/19 07:15 Hgb 8.1 gm/dl (11.8-15.2) L 03/15/19 07:15 Hct 23.4 % (35.5-45.6) L 03/15/19 07:15 MCV 94 fl (84-94) 03/15/19 07:15 MCH 32 pg (28-32) 03/15/19 07:15 MCHC 35 % (32-34) H 03/15/19 07:15 RDW 18.5 % (13.2-15.2) H 03/15/19 07:15 Plt Count 42 K/mm3 (140-440) L 03/15/19 07:15 [place] % (Auto) Studio Data Analyst 03/15/19 07:15 Eos % (Auto) 0.4 % (0.0-4.3) 03/10/19 17:57 Victoria # 0.9 K/mm3 (0.0-0.8) H 03/10/19 17:57 Eos # 0.0 K/mm3 (0.0-0.4) 03/10/19 17:57 Baso # 0.0 K/mm3 (0.0-0.1) 03/10/19 17:57 Add Manual Diff Complete 03/15/19 07:15 Total Counted 100 03/15/19 07:15 Seg Neutrophils % Studio Data Analyst 03/15/19 07:15 Seg Neuts % (Manual) 2.0 % (40.0-70.0) L 03/15/19 07:15 0 % 03/15/19 07:15 41.0 % (13.4-35.0) H 03/15/19 07:15 Reactive Lymphs % (Man) 11.0 % 03/15/19 07:15 11.0 % (0.0-7.3) H 03/15/19 07:15 0 % (0.0-4.3) 03/15/19 07:15 0 % (0.0-1.8) 03/15/19 07:15 0 % 03/15/19 07:15 0 % 03/15/19 07:15 0 % 03/15/19 07:15 35.0 % 03/15/19 07:15 Nucleated RBC % Not Reportable 03/15/19 07:15 Seg Neutrophils # 0.1 K/mm3 (1.8-7.7) L 03/10/19 17:57 Seg Neutrophils # Man 0.3 K/mm3 (1.8-7.7) L 03/15/19 07:15 Band Neutrophils # 0.0 K/mm3 03/15/19 07:15 6.6 K/mm3 (1.2-5.4) H 03/15/19 07:15 Abs React Lymphs (Man) 1.8 K/mm3 03/15/19 07:15 1.8 K/mm3 (0.0-0.8) H 03/15/19 07:15 0.0 K/mm3 (0.0-0.4) 03/15/19 07:15 0.0 K/mm3 (0.0-0.1) 03/15/19 07:15 0.0 K/mm3 03/15/19 07:15 0.0 K/mm3 03/15/19 07:15 0.0 K/mm3 03/15/19 07:15 Blast Cells # 0.5 K/mm3 03/15/19 07:15 Pathologist Review 03/10/19 17:57 WBC Morphology Not Reportable 03/15/19 07:15 Hypersegmented Neuts Not Reportable 03/15/19 07:15 Hyposegmented Neuts Not Reportable 03/15/19 07:15 Hypogranular Neuts Not Reportable 03/15/19 07:15 Not Reportable 03/15/19 07:15 Not Reportable 03/15/19 07:15 Not Reportable 03/15/19 07:15 Not Reportable 03/15/19 07:15 Not Reportable 03/15/19 07:15 Not Reportable 03/15/19 07:15 Appears decreased 03/15/19 07:15 Not Reportable 03/15/19 07:15 Plt Clumps, EDTA Not Reportable 03/15/19 07:15 Not Reportable 03/15/19 07:15 Not Reportable 03/15/19 07:15 Not Reportable 03/15/19 07:15 Plt Morphology Comment Not Reportable 03/15/19 07:15 RBC Morphology Not Reportable 03/15/19 07:15 Dimorphic RBCs Not Reportable 03/15/19 07:15 Few 03/15/19 07:15 Few 03/15/19 07:15 Not Reportable 03/15/19 07:15 Not Reportable 03/15/19 07:15 Not Reportable 03/15/19 07:15 Not Reportable 03/15/19 07:15 Not Reportable 03/15/19 07:15 Not Reportable 03/15/19 07:15 Not Reportable 03/15/19 07:15 Not Reportable 03/15/19 07:15 Rare 03/15/19 07:15 Not Reportable 03/15/19 07:15 Not Reportable 03/15/19 07:15 Not Reportable 03/15/19 07:15 Not Reportable 03/15/19 07:15 Not Reportable 03/15/19 07:15 Not Reportable 03/15/19 07:15 Not Reportable 03/15/19 07:15 1+ 03/15/19 07:15 Acanthocytes (Spur) 1+ 03/15/19 07:15 Rouleaux Not Reportable 03/15/19 07:15 Not Reportable 03/15/19 07:15 Not Reportable 03/15/19 07:15 Not Reportable 03/15/19 07:15 Not Reportable 03/15/19 07:15 Hem Pathologist Commnt Sent to pathology 03/15/19 07:15 PT 14.4 Sec. (12.2-14.9) 03/10/19 17:57 INR 1.15 (0.87-1.13) H 03/10/19 17:57 APTT 28.8 Sec. (24.2-36.6) 03/10/19 17:57 POC ABG pH 7.487 (7.35-7.45) H 03/16/19 03:49 POC ABG pCO2 34.3 (35-45) L 03/16/19 03:49 POC ABG pO2 254 (80-105) H 03/16/19 03:49 POC ABG HCO3 25.9 (22-26 mml/L) 03/16/19 03:49 POC ABG Total CO2 27 (23-27mmol/L) 03/16/19 03:49 POC ABG O2 Sat 100 03/16/19 03:49 POC ABG Base Excess 3 ((-2) - (+3)mmol/L) 03/16/19 03:49 VBG pH 7.381 (7.320-7.420) 03/10/19 17:57 35 % 03/16/19 03:49 Sodium 138 mmol/L (137-145) 03/15/19 07:15 Potassium 3.8 mmol/L (3.6-5.0) 03/15/19 07:15 Chloride 96.0 mmol/L (98-107) L 03/15/19 07:15 Carbon Dioxide 27 mmol/L (22-30) 03/15/19 07:15 19 mmol/L 03/15/19 07:15 BUN 47 mg/dL (9-20) H 03/15/19 07:15 5.0 mg/dL (0.8-1.5) H 03/15/19 07:15 Estimated GFR 12 ml/min 03/15/19 07:15 9 % 03/15/19 07:15 Glucose 287 mg/dL (75-100) H 03/15/19 07:15 POC Glucose 271 (70-105) H 03/16/19 05:26 Lactic Acid 1.70 mmol/L (0.7-2.0) 03/10/19 23:17 Calcium 7.2 mg/dL (8.4-10.2) L D 03/15/19 07:15 0.50 mg/dL (0.1-1.2) 03/15/19 07:15 AST 522 units/L (5-40) H 03/15/19 07:15 ALT 474 units/L (7-56) H 03/15/19 07:15 129 units/L (35-129) 03/15/19 07:15 1156 units/L (55-170) H 03/11/19 06:07 CK-MB (CK-2) 4.6 ng/mL (0.0-4.0) H 03/11/19 06:07 CK-MB (CK-2) Rel Index 0.3 (0-4) 03/11/19 06:07 0.077 ng/mL (0.00-0.029) H 03/11/19 06:07 5.7 g/dL (6.3-8.2) L 03/15/19 07:15 2.4 g/dL (3.9-5) L 03/15/19 07:15 0.7 % 03/15/19 07:15 Triglycerides 91 mg/dL (2-149) 03/11/19 00:50 Cholesterol < 4 mg/dL (50-199) L 03/11/19 00:50 4 mg/dL (50-130) L 03/11/19 00:50 < 3 mg/dL (40-59) L 03/11/19 00:50 1.00 % 03/11/19 00:50 Briana (Yellow) 03/10/19 23:06 Cloudy (Clear) 03/10/19 23:06 5.0 (5.0-7.0) 03/10/19 23:06 Ur Specific [place] 1.016 (1.003-1.030) 03/10/19 23:06 >500 mg/dL (Negative) 03/10/19 23:06 Neg mg/dL (Negative) 03/10/19 23:06 Neg mg/dL (Negative) 03/10/19 23:06 Mod (Negative) 03/10/19 23:06 Neg (Negative) 03/10/19 23:06 Neg (Negative) 03/10/19 23:06 2.0 mg/dL (<2.0) 03/10/19 23:06 Ur Leukocyte Esterase Neg (Negative) 03/10/19 23:06 24.0 /HPF (0.0-6.0) H 03/10/19 23:06 24.0 /HPF (0.0-6.0) 03/10/19 23:06 U Epithel Cells (Auto) 4.0 /HPF (0-13.0) 03/10/19 23:06 Amorphous Crystals Few 03/10/19 23:06 Random Vancomycin 14 ug/mL (0-40.0) 03/12/19 05:06 86 mg/dL (82-185) 03/13/19 09:12 37 mg/dL (15-53) 03/13/19 09:12 C. difficile Tox (PCR) Negative (Negative) 03/11/19 Unknown Hepatitis A IgM Ab Non-reactive (NonReactive) 03/13/19 01:31 Hep Bs Antigen Non-reactive (Negative) 03/13/19 01:31 Hep B Core IgM Ab Non-reactive (NonReactive) 03/13/19 01:31 Non-reactive (NonReactive) 03/13/19 01:31 Influenza A (Rapid) Negative (Negative) 03/10/19 18:00 Influenza B (Rapid) Negative (Negative) 03/10/19 18:00 Blood Type A POSITIVE 03/13/19 19:12 Antibody Screen Negative 03/13/19 19:12 Crossmatch See Detail 03/13/19 19:12 Active Medications - Current Medications Current Medications: Generic Name Dose Route Start Last Admin Trade Name Freq PRN Reason Stop Dose Admin Acetaminophen 650 mg 03/11/19 00:40 03/15/19 00:49 Tylenol PO 650 mg Q4H PRN Administration Pain MILD(1-3)/Fever >100.5/[place] Acetaminophen 650 mg 03/11/19 00:40 03/12/19 04:53 Tylenol GA 650 mg Q4H PRN Administration Pain MILD(1-3)/Fever >100.5/[place] Albumin Human 12.5 gm 03/13/19 09:29 Alburx 25% (Albumin) IV DUKE PRN Hypotension Lipase/Protease/Amylase 1 each 03/15/19 13:[address] 10,500 Unit FEEDTUBE PRN PRN For Clogged Feeding Tube Dextrose 50 ml 03/11/19 00:44 D50w (25gm) Syringe IV PRN PRN Hypoglycemia Fentanyl 50 mcg 03/11/19 07:50 Sublimaze IV Q10MIN PRN ANALGESIA Hydrophilic Ointment 1 applic 03/10/19 19:50 Vaseline Lip Therapy TP Q2HR PRN Dry Lips Propofol 1,000 mg in 100 mls @ 4.082 mls/hr 03/10/19 20:00 03/11/19 14:30 Diprivan 10 Mg/Ml IV Infused TITR ROXANNE Titration Protocol 5 MCG/KG/MIN Norepinephrine 4 mg in 250 mls @ 7.5 mls/hr 03/10/19 21:00 03/15/19 20:30 Levophed Drip 4 Mg/Ns 250 Ml IV 0 mcg/min TITR ROXANNE 0 mls/hr Titration Protocol 2 MCG/MIN Fentanyl Citrate 2,000 mcg in 100 mls @ 6.804 mls/hr 03/11/19 08:00 03/11/19 19:43 Fentanyl Drip Premix IV 0 mcg/kg/hr TITR ROXANNE 0 mls/hr Titration Protocol 1 MCG/KG/HR Ceftriaxone Sodium 2 gm in 100 mls @ 200 mls/hr 03/11/19 13:00 03/15/19 22:10 Rocephin/Ns 2 Gm/100 Ml IV 200 mls/hr Q12HR ROXANNE Administration Protocol Clindamycin HCl 900 mg in 50 mls @ 100 mls/hr 03/13/19 09:00 03/16/19 01:20 Cleocin 900 Mg/50 Ml IV 100 mls/hr Q8H ROXANNE Administration Sodium Chloride 100 mls @ 999 mls/hr 03/15/19 08:11 Nacl 0.9% IV DUKE PRN Hypotension Insulin Glargine 30 units 03/16/19 10:00 Lantus SUB-Q DAILY ROXANNE Insulin Human Lispro 0 unit 03/11/19 06:00 03/16/19 06:29 Humalog SUB-Q 6 unit Q6HR ROXANNE Administration Protocol Multi-Ingred Cream/Lotion/Oil/Oint 1 applic 03/10/19 19:50 Artificial Tears Ophth Oint OU Q4HR PRN Dry Eye(s) Ondansetron HCl 4 mg 03/11/19 00:40 Zofran IV Q8H PRN Nausea And Vomiting Pantoprazole Sodium 40 mg 03/15/19 10:00 03/15/19 09:39 Protonix IV 40 mg QDAY ROXANNE Administration Simple Syrup 15 ml 03/15/19 13:21 Simple Syrup FEEDTUBE PRN PRN Hypoglycemia Simple Syrup 30 ml 03/15/19 13:21 Simple Syrup FEEDTUBE PRN PRN Hypoglycemia Sodium Bicarbonate 325 mg 03/15/19 13:21 Sodium Bicarbonate FEEDTUBE PRN PRN For Clogged Feeding Tube Sodium Chloride 10 ml 03/11/19 10:00 03/15/19 22:10 Sodium Chloride Flush Syringe 10 Ml IV 10 ml BID ROXANNE Administration Sodium Chloride 10 ml 03/11/19 00:40 Sodium Chloride Flush Syringe 10 Ml IV PRN PRN LINE FLUSH Nutrition/Malnutrition Assess - Dietary Evaluation Nutrition/Malnutrition Findings: Nutrition Notes Start: 03/12/19 11:38 Freq: Status: Active Protocol: Document 03/15/19 13:15 APOLINAR (Rec: 03/15/19 13:21 APOLINAR [email or web address]) Nutrition Notes Initial or Follow up Reassessment Other Pertinent Diagnosis s/p cardiac arrest, anoxic brain injury Current Diet TF - Nepro at 45ml/hr Labs/Tests BUN 47 Cr 5 BG 287 Pertinent Medications Lantus Height 5 ft 4 in Weight 147.8 kg [place] Body Weight (kg) 59.09 BMI 55.9 Subjective/Other Information Observed TF infusing at goal rate. Per RN, pt with gastric residuals ranging 190-200mL. Pt remains intubated on vent support. Had HD yesterday. Percent of energy/protein needs met: 73% energy 71% pro Burn Absent Trauma Absent #1 Nutrition Diagnosis Inadequate oral intake Diagnosis Progress(for reassessment Continues documentation) Is patient on ventilator? Yes Is Patient Ambulatory and/or Out of Bed No REE-([facility]-confined to bed) [phone] Calculation Used for Recommendations 65-70% energy needs Additional Notes Energy needs: 5655-2967 kcal/ day Pro needs 1.2-1.4g/kg adjBW: 124-145g/day Fluid needs 1-1.5L/day Nutrition Intervention Nutrition Support: Continue Nepro at 45ml/hr with 120ml water flush q4h. Kcal 1,944 Protein (gm) 87 Carbohydrates (gm) 174 Fat (gm) 104 Fluid (mL) 785 Fiber (gm) 14 Goal #1 TF tolerance Goal #2 TF to meet nutrient needs as best possible Follow-Up By: 03/19/19 Additional Comments F/U: stable TF, water flushes, vent status
[2019-03-16] MEDS: PROTONIX IV SCH (09:58)
[2019-03-16] MEDS: ROCEPHIN/NS 2 GM/100 ML 2 GM/100 ML BAG IV SCH ×2 (09:58→21:40)
--- NOTE | 2019-03-16 10:04 | Progress Note ---
Subjective Date of service: 03/16/19 Principal diagnosis: severe sepsis Interval history: see the dictated note on the patient still in coma , do not detect any seizures Objective - Vital Sign Vital Signs - 12hr 03/15/19 03/15/19 03/15/19 22:16 22:30 22:46 Temperature Pulse Rate 85 92 H 90 Respiratory 28 H 29 H 27 H Rate Blood Pressure 130/66 130/66 131/41 O2 Sat by Pulse 95 95 94 Oximetry 03/15/19 03/15/19 03/15/19 23:00 23:15 23:20 Temperature Pulse Rate 88 87 89 Respiratory 28 H 30 H Rate Blood Pressure 131/41 140/30 129/42 O2 Sat by Pulse 95 95 96 Oximetry 03/15/19 03/15/19 03/15/19 23:30 23:44 23:46 Temperature 99.6 F Pulse Rate 90 91 H Respiratory 31 H 33 H Rate Blood Pressure 129/42 129/42 O2 Sat by Pulse 95 96 Oximetry 03/16/19 03/16/19 03/16/19 00:00 00:16 00:30 Temperature Pulse Rate 91 H 92 H 95 H Respiratory 32 H 32 H 32 H Rate Blood Pressure 139/60 152/29 152/29 O2 Sat by Pulse 96 97 96 Oximetry 03/16/19 03/16/19 03/16/19 00:46 01:00 01:16 Temperature Pulse Rate 91 H 91 H 89 Respiratory 34 H 31 H 30 H Rate Blood Pressure 131/53 131/53 140/29 O2 Sat by Pulse 95 96 98 Oximetry 03/16/19 03/16/19 03/16/19 01:30 01:46 02:00 Temperature Pulse Rate 89 91 H 94 H Respiratory 29 H 31 H 30 H Rate Blood Pressure 153/29 143/36 143/36 O2 Sat by Pulse 96 94 95 Oximetry 03/16/19 03/16/19 03/16/19 02:16 02:30 02:46 Temperature Pulse Rate 89 92 H 92 H Respiratory 31 H 34 H 35 H Rate Blood Pressure 140/34 140/34 149/29 O2 Sat by Pulse 99 100 100 Oximetry 03/16/19 03/16/19 03/16/19 03:00 03:16 03:22 Temperature Pulse Rate 98 H 95 H 95 H Respiratory 34 H 37 H Rate Blood Pressure 149/46 162/39 162/39 O2 Sat by Pulse 100 100 100 Oximetry 03/16/19 03/16/19 03/16/19 03:30 03:36 03:45 Temperature 100.9 F H Pulse Rate 97 H 92 H Respiratory 34 H 30 H Rate Blood Pressure 149/29 145/55 O2 Sat by Pulse 99 99 Oximetry 03/16/19 03/16/19 03/16/19 04:00 04:16 04:30 Temperature Pulse Rate 91 H 96 H 92 H Respiratory 34 H 30 H 33 H Rate Blood Pressure 145/55 126/24 151/22 O2 Sat by Pulse 100 100 93 Oximetry 03/16/19 03/16/19 03/16/19 04:46 05:00 05:16 Temperature Pulse Rate 90 95 H 90 Respiratory 30 H 30 H 31 H Rate Blood Pressure 139/25 140/26 142/19 O2 Sat by Pulse 96 95 94 Oximetry 03/16/19 03/16/19 03/16/19 05:30 05:45 06:00 Temperature Pulse Rate 91 H 92 H 90 Respiratory 30 H 30 H 30 H Rate Blood Pressure 135/27 119/34 119/39 O2 Sat by Pulse 95 94 95 Oximetry 03/16/19 03/16/19 03/16/19 06:15 06:30 06:45 Temperature Pulse Rate 89 89 86 Respiratory 28 H 29 H 31 H Rate Blood Pressure 135/26 125/35 129/31 O2 Sat by Pulse 96 95 95 Oximetry 03/16/19 03/16/19 03/16/19 07:00 07:15 07:29 Temperature Pulse Rate 84 86 89 Respiratory 27 H 27 H Rate Blood Pressure 140/26 120/27 110/32 O2 Sat by Pulse 95 95 94 Oximetry 03/16/19 03/16/19 03/16/19 07:30 07:45 08:00 Temperature 100.4 F H Pulse Rate 87 93 H 86 Respiratory 28 H 26 H 27 H Rate Blood Pressure 129/31 110/39 129/27 O2 Sat by Pulse 93 95 94 Oximetry - Laboratory Findings CBC and BMP: 03/15/19 07:15 03/15/19 07:15 Abnormal Lab Findings: Abnormal Labs 03/10/19 03/10/19 03/10/19 17:57 17:57 17:57 WBC 1.2 L* RBC 2.46 L Hgb 7.9 L Hct 23.2 L MCV MCHC RDW 18.2 H Plt Count 47 L [place] # 0.9 H Seg Neuts % (Manual) 6.0 L Lymphocytes % (Manual) 74.0 H Monocytes % (Manual) 20.0 H Nucleated RBC % Seg Neutrophils # 0.1 L Seg Neutrophils # Man 0.1 L Lymphocytes # (Manual) 0.9 L Monocytes # (Manual) INR POC ABG pH POC ABG pCO2 POC ABG pO2 Potassium Chloride Carbon Dioxide BUN 46 H Creatinine 2.9 H Glucose 200 H POC Glucose Lactic Acid 2.50 H* Calcium 7.6 L Total Bilirubin AST ALT Total Creatine Kinase CK-MB (CK-2) Troponin T Total Protein Albumin 3.2 L Cholesterol LDL Cholesterol Direct HDL Cholesterol Urine WBC (Auto) Crossmatch 03/10/19 03/10/19 03/10/19 17:57 18:01 18:52 WBC RBC Hgb Hct MCV MCHC RDW Plt Count [place] # Seg Neuts % (Manual) Lymphocytes % (Manual) Monocytes % (Manual) Nucleated RBC % Seg Neutrophils # Seg Neutrophils # Man Lymphocytes # (Manual) Monocytes # (Manual) INR 1.15 H POC ABG pH POC ABG pCO2 POC ABG pO2 Potassium Chloride Carbon Dioxide BUN Creatinine Glucose POC Glucose 234 H Lactic Acid Calcium Total Bilirubin AST ALT Total Creatine Kinase CK-MB (CK-2) Troponin T Total Protein Albumin Cholesterol LDL Cholesterol Direct HDL Cholesterol Urine WBC (Auto) Crossmatch See Detail 03/10/19 03/10/19 03/10/19 19:16 20:56 21:32 WBC RBC Hgb Hct MCV MCHC RDW Plt Count [place] # Seg Neuts % (Manual) Lymphocytes % (Manual) Monocytes % (Manual) Nucleated RBC % Seg Neutrophils # Seg Neutrophils # Man Lymphocytes # (Manual) Monocytes # (Manual) INR POC ABG pH 7.274 L POC ABG pCO2 46.6 H POC ABG pO2 315 H Potassium Chloride Carbon Dioxide BUN Creatinine Glucose POC Glucose Lactic Acid 2.80 H* Calcium Total Bilirubin AST ALT Total Creatine Kinase CK-MB (CK-2) Troponin T Total Protein Albumin Cholesterol LDL Cholesterol Direct HDL Cholesterol Urine WBC (Auto) Crossmatch 03/10/19 03/10/19 03/11/19 23:06 23:29 00:50 WBC RBC Hgb Hct MCV MCHC RDW Plt Count [place] # Seg Neuts % (Manual) Lymphocytes % (Manual) Monocytes % (Manual) Nucleated RBC % Seg Neutrophils # Seg Neutrophils # Man Lymphocytes # (Manual) Monocytes # (Manual) INR POC ABG pH POC ABG pCO2 POC ABG pO2 Potassium Chloride Carbon Dioxide BUN Creatinine Glucose POC Glucose 237 H Lactic Acid Calcium Total Bilirubin AST ALT Total Creatine Kinase 513 H CK-MB (CK-2) Troponin T 0.075 H Total Protein Albumin Cholesterol < 4 L LDL Cholesterol Direct 4 L HDL Cholesterol < 3 L Urine WBC (Auto) 24.0 H Crossmatch 03/11/19 03/11/19 03/11/19 05:01 05:01 06:06 WBC RBC 2.29 L Hgb 7.3 L Hct 22.2 L MCV 97 H MCHC RDW 18.2 H Plt Count 40 L [place] # Seg Neuts % (Manual) 8.0 L Lymphocytes % (Manual) 67.0 H Monocytes % (Manual) 24.0 H Nucleated RBC % 5.0 H Seg Neutrophils # Seg Neutrophils # Man 0.4 L Lymphocytes # (Manual) Monocytes # (Manual) 1.2 H INR POC ABG pH POC ABG pCO2 32.8 L POC ABG pO2 Potassium 5.3 H Chloride Carbon Dioxide 19 L BUN 49 H Creatinine 3.7 H Glucose 203 H POC Glucose Lactic Acid Calcium 7.1 L Total Bilirubin AST ALT Total Creatine Kinase CK-MB (CK-2) Troponin T Total Protein Albumin Cholesterol LDL Cholesterol Direct HDL Cholesterol Urine WBC (Auto) Crossmatch 03/11/19 03/11/19 03/11/19 06:07 06:35 13:07 WBC RBC Hgb Hct MCV MCHC RDW Plt Count [place] # Seg Neuts % (Manual) Lymphocytes % (Manual) Monocytes % (Manual) Nucleated RBC % Seg Neutrophils # Seg Neutrophils # Man Lymphocytes # (Manual) Monocytes # (Manual) INR POC ABG pH POC ABG pCO2 POC ABG pO2 Potassium Chloride Carbon Dioxide BUN Creatinine Glucose POC Glucose 209 H 185 H Lactic Acid Calcium Total Bilirubin AST ALT Total Creatine Kinase 1156 H CK-MB (CK-2) 4.6 H Troponin T 0.077 H Total Protein Albumin Cholesterol LDL Cholesterol Direct HDL Cholesterol Urine WBC (Auto) Crossmatch 03/11/19 03/11/19 03/12/19 18:36 23:45 04:25 WBC RBC Hgb Hct MCV MCHC RDW Plt Count [place] # Seg Neuts % (Manual) Lymphocytes % (Manual) Monocytes % (Manual) Nucleated RBC % Seg Neutrophils # Seg Neutrophils # Man Lymphocytes # (Manual) Monocytes # (Manual) INR POC ABG pH 7.320 L POC ABG pCO2 POC ABG pO2 Potassium Chloride Carbon Dioxide BUN Creatinine Glucose POC Glucose 126 H 137 H Lactic Acid Calcium Total Bilirubin AST ALT Total Creatine Kinase CK-MB (CK-2) Troponin T Total Protein Albumin Cholesterol LDL Cholesterol Direct HDL Cholesterol Urine WBC (Auto) Crossmatch 03/12/19 03/12/19 03/12/19 05:06 05:06 05:57 WBC RBC 2.24 L Hgb 7.2 L Hct 21.9 L MCV 98 H MCHC RDW 18.3 H Plt Count 38 L [place] # Seg Neuts % (Manual) 4.0 L Lymphocytes % (Manual) Monocytes % (Manual) 69.0 H Nucleated RBC % Seg Neutrophils # Seg Neutrophils # Man 0.3 L Lymphocytes # (Manual) Monocytes # (Manual) 4.9 H INR POC ABG pH POC ABG pCO2 POC ABG pO2 Potassium 6.6 H* D Chloride Carbon Dioxide 17 L BUN 66 H Creatinine 5.6 H D Glucose 149 H POC Glucose 165 H Lactic Acid Calcium 6.5 L Total Bilirubin 1.90 H AST 782 H ALT 382 H Total Creatine Kinase CK-MB (CK-2) Troponin T Total Protein 5.7 L Albumin 2.7 L Cholesterol LDL Cholesterol Direct HDL Cholesterol Urine WBC (Auto) Crossmatch 03/12/19 03/12/19 03/12/19 07:19 15:24 18:55 WBC RBC Hgb Hct MCV MCHC RDW Plt Count [place] # Seg Neuts % (Manual) Lymphocytes % (Manual) Monocytes % (Manual) Nucleated RBC % Seg Neutrophils # Seg Neutrophils # Man Lymphocytes # (Manual) Monocytes # (Manual) INR POC ABG pH POC ABG pCO2 POC ABG pO2 Potassium 6.6 H* Chloride Carbon Dioxide BUN Creatinine Glucose POC Glucose 167 H 212 H Lactic Acid Calcium Total Bilirubin AST ALT Total Creatine Kinase CK-MB (CK-2) Troponin T Total Protein Albumin Cholesterol LDL Cholesterol Direct HDL Cholesterol Urine WBC (Auto) Crossmatch 03/12/19 03/13/19 03/13/19 23:45 05:37 09:11 WBC RBC Hgb Hct MCV MCHC RDW Plt Count [place] # Seg Neuts % (Manual) Lymphocytes % (Manual) Monocytes % (Manual) Nucleated RBC % Seg Neutrophils # Seg Neutrophils # Man Lymphocytes # (Manual) Monocytes # (Manual) INR POC ABG pH POC ABG pCO2 POC ABG pO2 Potassium Chloride Carbon Dioxide BUN 52 H Creatinine 5.5 H Glucose 235 H POC Glucose 197 H 250 H Lactic Acid Calcium 6.2 L Total Bilirubin AST ALT Total Creatine Kinase CK-MB (CK-2) Troponin T Total Protein Albumin Cholesterol LDL Cholesterol Direct HDL Cholesterol Urine WBC (Auto) Crossmatch 03/13/19 03/13/19 03/13/19 09:11 11:06 12:38 WBC RBC 1.99 L 2.07 L Hgb 6.4 L 6.6 L Hct 18.7 L* 19.6 L* MCV 95 H MCHC RDW 18.5 H 18.5 H Plt Count 36 L 33 L [place] # Seg Neuts % (Manual) Lymphocytes % (Manual) Monocytes % (Manual) Nucleated RBC % Seg Neutrophils # Seg Neutrophils # Man Lymphocytes # (Manual) Monocytes # (Manual) INR POC ABG pH POC ABG pCO2 POC ABG pO2 Potassium Chloride Carbon Dioxide BUN Creatinine Glucose POC Glucose 268 H Lactic Acid Calcium Total Bilirubin AST ALT Total Creatine Kinase CK-MB (CK-2) Troponin T Total Protein Albumin Cholesterol LDL Cholesterol Direct HDL Cholesterol Urine WBC (Auto) Crossmatch 03/13/19 03/13/19 03/13/19 18:11 19:12 20:58 WBC RBC Hgb Hct MCV MCHC RDW Plt Count [place] # Seg Neuts % (Manual) Lymphocytes % (Manual) Monocytes % (Manual) Nucleated RBC % Seg Neutrophils # Seg Neutrophils # Man Lymphocytes # (Manual) Monocytes # (Manual) INR POC ABG pH 7.466 H POC ABG pCO2 POC ABG pO2 Potassium Chloride Carbon Dioxide BUN Creatinine Glucose POC Glucose 255 H Lactic Acid Calcium Total Bilirubin AST ALT Total Creatine Kinase CK-MB (CK-2) Troponin T Total Protein Albumin Cholesterol LDL Cholesterol Direct HDL Cholesterol Urine WBC (Auto) Crossmatch See Detail 03/13/19 03/14/19 03/14/19 23:49 05:51 11:39 WBC RBC Hgb Hct MCV MCHC RDW Plt Count [place] # Seg Neuts % (Manual) Lymphocytes % (Manual) Monocytes % (Manual) Nucleated RBC % Seg Neutrophils # Seg Neutrophils # Man Lymphocytes # (Manual) Monocytes # (Manual) INR POC ABG pH POC ABG pCO2 POC ABG pO2 Potassium Chloride Carbon Dioxide BUN Creatinine Glucose POC Glucose 289 H 305 H 283 H Lactic Acid Calcium Total Bilirubin AST ALT Total Creatine Kinase CK-MB (CK-2) Troponin T Total Protein Albumin Cholesterol LDL Cholesterol Direct HDL Cholesterol Urine WBC (Auto) Crossmatch 03/14/19 03/14/19 03/15/19 13:43 18:12 00:43 WBC 14.0 H RBC 2.78 L Hgb 8.9 L Hct 26.0 L D MCV MCHC RDW 17.9 H Plt Count 42 L [place] # Seg Neuts % (Manual) 2.0 L Lymphocytes % (Manual) 84.0 H Monocytes % (Manual) 13.0 H Nucleated RBC % Seg Neutrophils # Seg Neutrophils # Man 0.3 L Lymphocytes # (Manual) 11.8 H Monocytes # (Manual) 1.8 H INR POC ABG pH POC ABG pCO2 POC ABG pO2 Potassium Chloride Carbon Dioxide BUN Creatinine Glucose POC Glucose 313 H 236 H Lactic Acid Calcium Total Bilirubin AST ALT Total Creatine Kinase CK-MB (CK-2) Troponin T Total Protein Albumin Cholesterol LDL Cholesterol Direct HDL Cholesterol Urine WBC (Auto) Crossmatch 03/15/19 03/15/19 03/15/19 04:24 07:15 07:15 WBC 16.1 H RBC 2.50 L Hgb 8.1 L Hct 23.4 L MCV MCHC 35 H RDW 18.5 H Plt Count 42 L [place] # Seg Neuts % (Manual) 2.0 L Lymphocytes % (Manual) 41.0 H Monocytes % (Manual) 11.0 H Nucleated RBC % Seg Neutrophils # Seg Neutrophils # Man 0.3 L Lymphocytes # (Manual) 6.6 H Monocytes # (Manual) 1.8 H INR POC ABG pH 7.497 H POC ABG pCO2 34.0 L POC ABG pO2 Potassium Chloride 96.0 L Carbon Dioxide BUN 47 H Creatinine 5.0 H Glucose 287 H POC Glucose Lactic Acid Calcium 7.2 L D Total Bilirubin AST 522 H ALT 474 H Total Creatine Kinase CK-MB (CK-2) Troponin T Total Protein 5.7 L Albumin 2.4 L Cholesterol LDL Cholesterol Direct HDL Cholesterol Urine WBC (Auto) Crossmatch 03/15/19 03/15/19 03/15/19 07:24 11:18 17:12 WBC RBC Hgb Hct MCV MCHC RDW Plt Count [place] # Seg Neuts % (Manual) Lymphocytes % (Manual) Monocytes % (Manual) Nucleated RBC % Seg Neutrophils # Seg Neutrophils # Man Lymphocytes # (Manual) Monocytes # (Manual) INR POC ABG pH POC ABG pCO2 POC ABG pO2 Potassium Chloride Carbon Dioxide BUN Creatinine Glucose POC Glucose 285 H 287 H 221 H Lactic Acid Calcium Total Bilirubin AST ALT Total Creatine Kinase CK-MB (CK-2) Troponin T Total Protein Albumin Cholesterol LDL Cholesterol Direct HDL Cholesterol Urine WBC (Auto) Crossmatch 03/15/19 03/16/19 03/16/19 23:19 03:49 05:26 WBC RBC Hgb Hct MCV MCHC RDW Plt Count [place] # Seg Neuts % (Manual) Lymphocytes % (Manual) Monocytes % (Manual) Nucleated RBC % Seg Neutrophils # Seg Neutrophils # Man Lymphocytes # (Manual) Monocytes # (Manual) INR POC ABG pH 7.487 H POC ABG pCO2 34.3 L POC ABG pO2 254 H Potassium Chloride Carbon Dioxide BUN Creatinine Glucose POC Glucose 297 H 271 H Lactic Acid Calcium Total Bilirubin AST ALT Total Creatine Kinase CK-MB (CK-2) Troponin T Total Protein Albumin Cholesterol LDL Cholesterol Direct HDL Cholesterol Urine WBC (Auto) Crossmatch
--- NOTE | 2019-03-16 10:17 | Progress Note ---
Assessment and Plan Patient remains intubated and on Levophed. He does withdraw from pain. He is stable from a cardiac standpoint and we will continue supportive care. Patient has been seen in conjunction with Dr. Navarro, who agrees with assessment and plan. - Patient Problems (1) Cardiopulmonary arrest with successful resuscitation Current Visit: Yes Status: Acute (2) Acute metabolic encephalopathy Current Visit: Yes Status: Acute (3) Acute on chronic renal failure Current Visit: Yes Status: Acute Qualifiers: Chronic kidney disease stage: stage 3 (moderate) (4) Altered mental status Current Visit: Yes Status: Acute (5) Hypotension Current Visit: Yes Status: Acute (6) Metabolic acidosis Current Visit: Yes Status: Acute (7) Pancytopenia Current Visit: Yes Status: Acute (8) Sepsis Current Visit: Yes Status: Acute Qualifiers: Sepsis type: Streptococcus group B Qualified Code(s): A40.1 - Sepsis due to streptococcus, group B (9) UTI (urinary tract infection) Current Visit: Yes Status: Acute (10) CAD (coronary artery disease) Current Visit: Yes Status: Chronic Qualifiers: Coronary Disease-Associated Artery/Lesion type: [place] artery [place] vs. transplanted heart: [place] heart (11) Diabetes Current Visit: Yes Status: Chronic (12) Obesity Current Visit: Yes Status: Chronic (13) Stented coronary artery Current Visit: Yes Status: Chronic Subjective Date of service: 03/16/19 Principal diagnosis: severe sepsis Interval history: Patient intubated and sedated. Withdraws from pain. Remains on Levophed. SR with PACs in 80s on telemetry. Objective Last Vital Signs Temp 100.4 F H 03/16/19 08:00 Pulse 86 03/16/19 08:00 Resp 27 H 03/16/19 08:00 BP 129/27 03/16/19 08:00 Pulse Ox 94 03/16/19 08:00 - Physical Examination General: Other (intubated, withdraws from pain) HEENT: Positive: Normocephaly Neck: Positive: neck supple, trachea midline Cardiac: Positive: irregularly irregular Lungs: Positive: Ventilated Respirations Neuro: Positive: Other (intubated, withdraws from pain) Abdomen: Positive: Other (Obese) /Rectal: Other Skin: Positive: Clear. Negative: Rash Musculoskeletal: Decreased Range of Motion, No Pain Extremities: Present: Other (Generalized edema ) - Labs and Meds CBC 03/15/19 Range/Units 07:15 WBC 16.1 H (4.5-11.0) K/mm3 RBC 2.50 L (3.65-5.03) M/mm3 Hgb 8.1 L (11.8-15.2) gm/dl Hct 23.4 L (35.5-45.6) % Plt Count 42 L (140-440) K/mm3 - Imaging and Cardiology EKG: image reviewed Echo: report reviewed ( 03/05/2019 showed EF 60-65%, mild LVH, LA mildly dilated, small pericardial effusion. ) - Telemetry EKG Rhythm: Sinus Rhythm - EKG Sinus rhythms and dysrhythmias: sinus rhythm Supraventricular dysrhythmia: atrial premature complexe AV and intraventricular conduction: left anterior fascicular - Allied health notes Allied health notes reviewed: nursing
[2019-03-16] MEDS: LANTUS SUB-Q SCH (10:49)
[2019-03-16] MEDS: SODIUM CHLORIDE FLUSH SYRINGE 10 ML IV SCH ×2 (10:57→21:41)
[2019-03-17] MEDS: HumaLOG SUB-Q SCH ×4 (00:42→17:35)
[2019-03-17] MEDS: CLEOCIN 900 MG/50 mL 900 MG/50 ML BAG IV SCH ×3 (00:43→16:45)
--- NOTE | 2019-03-17 05:51 | Consultation ---
HISTORY OF PRESENT ILLNESS: This is a 54-year-old white male that enters [facility] with a history of shortness of breath, cough and generalized body aches. He presented with being on a prior history of albuterol therapy for chronic renal insufficiency, hypertension and prior history of diabetes. The patient has not been around any hospitalized patients, has not chronic community acquired infection. He had a prior history of wheezing, chronic. He had a prior history of being on albuterol therapy by EMS. He had fever, generalized body aches, when he presented to the hospital. He also had a history recently of a generalized fever possibly to having a kidney infection. He sees a primary care doctor. He was diagnosed as having stage 3 kidney disease. He had been taking lisinopril, pantoprazole, Januvia 50 mg p.o. daily, insulin 33 units b.i.d., gabapentin 300 mg b.i.d., Plavix 75 mg daily, carvedilol 12.5 mg daily, atorvastatin 80 mg daily and 81 mg aspirin. On presentation to the Emergency Room initially, his blood pressure was 185/135, was initially assessed and he was noted to have a hematocrit of 23.2. He was felt to have evidence of enlarged heart. He was placed on intubation and CT scan of the head showed no acute changes. The patient was felt to have a cardiopulmonary arrest during x-ray with some spontaneous return of respirations. The patient was placed on pressor support, propofol, Ativan. He was noted to have pneumonia, viral syndrome, bronchitis, sepsis, urinary tract infection. In the interval since admission, he has remained ventilatory dependent with blood sugars that have been elevated, most recent hematocrit is 23, his creatinine most recently was 5.0, BUN 47. Glucoses have been in the range of 285-272, ALT and AST are 522 and 474 with a calcium of 7.2, albumin is 2.4. Neurological consultation is requested. I did independently review his CT scan of the head and reviewed over this secondarily and there is a very mild degree of atrophy present in the temporal lobes. I do not see any evidence to indicate any acute stroke. He has minimal white matter changes. There is a metallic artifact present over the left calvarium producing streak artifact. I am not sure what this represents but is not pathological and incidental, but it does produce an artifactual streak but this is all extracranial and not a pathological structure as identified by my assessment. PHYSICAL EXAMINATION: My examination at this point reveals his vital signs most recently his pulse rate is 86, temperature is 100.4, respiratory rate is 27, he is on the ventilator, blood pressure is 129/____. He is poorly responsive, does not open his eyes to stimulation, does not have much spontaneous movement of his extremities, although there is motor tone present throughout. On stimulation with pain, he has some withdrawal response, but is non-purposeful. On forced eye opening, his eyes track from right to left, left to right and the gaze is conjugate, although he does not track. I do not think he responds to verbal stimulation. Cough reflex is extremely minimal, but barely present. He does have a gag reflex. He does have a blink reflex. He does have some spontaneous movement to pain, although very minimal. I do not think he has any spontaneous awakening. IMPRESSION: Severe encephalopathy, multifactorial. He has hepatic features, renal features, which are very profound. He also has a low albumin, which would indicate he may have chronic liver disease, as well he has been running intermittent fevers, but this is consistent with his admitting diagnosis of febrile illness with infection, multiple factors are superimposed and contributory. I do not think from reviewing his initial CT scan of the head, there was any evidence of infection or encephalitis. I do not see the need for an LP at this point. Agree with antibiotic therapy, supportive management at present, I do not see evidence to suggest he is having seizures. We will speak to family members once I have the opportunity to talk with them. From reviewing the chart, I do not think he has a strong indication of a neurological history, although I did notice that he was on Plavix therapy and Neurontin therapy. I am not sure the basis for this, although he may have simply been used to treat diabetic neuropathy. This in my view does not contribute to his respiratory arrest during x-ray procedure. Details of which should be reviewed in the chart. JOB# [id number] ONEYDA/RANDI
[2019-03-17 07:17] LABS: Hemoglobin 6.9 gm/dl (11.8-15.2); Mean Corpuscular HGB Conc 35 % (32-34); Mean Corpuscular Volume 94 fl (84-94); Red Blood Count 2.13 M/mm3 (3.65-5.03); Red Cell Distribution Width 18.4 % (13.2-15.2)
[2019-03-17 07:18] LABS: Calcium 6.9 mg/dL (8.4-10.2)
[2019-03-17 07:25] LABS: Platelet Count 34 K/mm3 (140-440)
--- NOTE | 2019-03-17 08:46 | XRay Report ---
CHEST 1 VIEW 03/17/2019 7:34 AM INDICATION / CLINICAL INFORMATION: follow up respiratory failure. COMPARISON: 03/16/2019 FINDINGS: SUPPORT DEVICES: Lines and tubes again project in expected position. HEART / MEDIASTINUM: No significant abnormality. LUNGS / PLEURA: No significant pulmonary or pleural abnormality. No pneumothorax. ADDITIONAL FINDINGS: No significant additional findings. IMPRESSION: 1. No acute findings. Signer Name: Darryl Velasquez MD Signed: 03/17/2019 8:41 AM Workstation Name: [id number]
--- NOTE | 2019-03-17 09:36 | Progress Note ---
Assessment and Plan s/p Cardiopulmonary arrest with ROSC Acute on chronic hypoxemic respiratory failure on MVS Severe sepsis with septic shock - Streptococcal Acute on chronic renal failure (multifactorial) Acute metabolic-toxic encephalopathy Morbid obesity h/o CAD s/p 2 stents Pancytopenia- probably secondary to sepsis and underlying chronic liver disease Type 2 DM h/o Alcohol abuse disorder - continue HD/UF for toxin and volume clearance - will ask vascular team to please change location of fevoral vas-cath or change it out to a new one (discussed with IS re: persistent fevers - resume levophed for current low MAP's (wean for MAP > 65 mmHg) - get CVP's and trend X 24-48 hours - reduce TV to 400 mls - replace potassium with dialysis - increased Lantus to 35 units dailyre: hyperglycemia - continue & complete AB's per ID rec's - TTE with EF 40-45% and diastolic dysfunction - continue Lung protective strategies - continue serial CXR's and ABG's - VAP bundle addressed - Critical care bundles addressed - Daily SATs and SBTs as odalys,erated (not tolerating well) - continue supplemental oxygen to keep O2 sats 90-92% - continue bronchodilators with pulm hygiene per RT - continue accuchecks with glycemic control per SSI for target blood glucose <180mg/dL - enteral nutrition as tolerated - Agitation management - Titrate sedation for RASS 0 to -1 - Prevention of delirium, maintenance of sleep-wake cycle - Antibiotic therapy per ID - De-escalate therapy based on microbiology/HAYDER/Cultures - Trend hematologic indices - Avoid nephrotoxic agents, adjust all antibiotics and medications for CrCL and GFR - VTE ( SCDs) and Stress ulcer prophylaxis( therapeutic PPI for now) - discontinue Womack catheter if OK with cutter and paster press clippings .... re-evaluate in am & prn CONDITION: CRITICAL PROGNOSIS: GUARDED CODE STATUS: FULL CODE Discussed with the Renal, ID service and with RT/RN Discussed on ICU-IDT rounds The high probability of a clinically significant, sudden or life-threatening deterioration of the [respiratory, cardiovascular, renal, neurology] system(s) required my full and direct attention, intervention and personal management. The aggregate critical care time was [35] minutes without overlap. Time includes spent on; [x] Data Review and interpretation [x] Patient assessment and monitoring of vital signs [x] Documentation [x] Medication orders and management Subjective Date of service: 03/17/19 Principal diagnosis: s/p cardiac arrest; acute hypoxemic resp failure; ISMAEL; hyperkalemia, Sepsis Interval history: Patient is seen today for: s/p cardiopulmonary arrest, acute hypoxemic respiratory failure, ISMAEL, Severe hyperkalemia, Severe sepsis Seen and examined at bedside; 24hour events reviewed; nursing and respiratory care staff consulted; no adverse overnight events reported to me; resting peacefully in bed; AMS is persistent; dialysis ongoing; Hb down to 6.9; continues with persistent fevers Objective Vital Signs - 12hr 03/16/19 03/16/19 03/16/19 21:49 22:01 22:31 Temperature Pulse Rate 86 88 87 Respiratory 28 H 27 H 28 H Rate Blood Pressure 146/29 146/35 138/30 O2 Sat by Pulse 93 93 93 Oximetry 03/16/19 03/16/19 03/16/19 23:00 23:31 23:37 Temperature Pulse Rate 85 87 88 Respiratory 28 H 28 H Rate Blood Pressure 150/32 153/27 153/27 O2 Sat by Pulse 92 88 94 Oximetry 03/16/19 03/17/19 03/17/19 23:58 00:00 00:31 Temperature 100.8 F H Pulse Rate 90 85 Respiratory 29 H 26 H Rate Blood Pressure 153/40 153/23 O2 Sat by Pulse 88 93 Oximetry 03/17/19 03/17/19 03/17/19 01:01 01:30 02:01 Temperature Pulse Rate 88 91 H 92 H Respiratory 28 H 24 30 H Rate Blood Pressure 139/33 146/26 121/30 O2 Sat by Pulse 91 92 92 Oximetry 03/17/19 03/17/19 03/17/19 02:31 03:01 03:31 Temperature Pulse Rate 96 H 90 89 Respiratory 33 H 28 H 31 H Rate Blood Pressure 141/41 162/28 222/21 O2 Sat by Pulse 78 L 91 88 Oximetry 03/17/19 03/17/19 03/17/19 03:51 04:00 04:30 Temperature 100.6 F H Pulse Rate 89 92 H 86 Respiratory 30 H 29 H Rate Blood Pressure 116/18 116/28 113/24 O2 Sat by Pulse 92 90 92 Oximetry 03/17/19 03/17/19 03/17/19 05:00 05:30 06:00 Temperature Pulse Rate 86 86 87 Respiratory 26 H 27 H 26 H Rate Blood Pressure 128/26 111/28 108/28 O2 Sat by Pulse 92 91 91 Oximetry 03/17/19 03/17/19 08:00 08:20 Temperature Pulse Rate 92 H 92 H Respiratory 34 H Rate Blood Pressure 151/40 120/33 O2 Sat by Pulse 93 91 Oximetry Constitutional: no acute distress, other (m,iddle aged morbidly obese CM, normocephalic with mildly increased resp effort at rest on MVS) Eyes: non-icteric ENT: oropharynx moist, other (ETT 24 cm ASHA) Neck: supple, no lymphadenopathy, no JVD, other (large neck circumference) Effort: mildly labored Ascultation: Bilateral: diminished breath sounds, rhonchi (bases) Percussion: Bilateral: not dull Cardiovascular: regular rate and rhythm, other (No R/M) Gastrointestinal: normoactive bowel sounds, soft, non-tender, non-distended Integumentary: normal Extremities: no cyanosis, pink and warm, pulses normal, no ischemia or petechiae Neurologic: non-focal exam (grossly), pupils equal and round, unable to assess, other (Encephalopathic) Psychiatric: other (unable to assess) CBC and BMP: 03/17/19 05:30 03/17/19 05:30 ABG, PT/INR, D-dimer: ABG POC ABG pH 7.491 (7.35-7.45) H 03/17/19 04:08 POC ABG pCO2 31.1 (35-45) L 03/17/19 04:08 POC ABG pO2 70 (80-105) L 03/17/19 04:08 POC ABG HCO3 23.8 (22-26 mml/L) 03/17/19 04:08 POC ABG Total CO2 25 (23-27mmol/L) 03/17/19 04:08 POC ABG O2 Sat 95 03/17/19 04:08 PT/INR, D-dimer PT 14.4 Sec. (12.2-14.9) 03/10/19 17:57 INR 1.15 (0.87-1.13) H 03/10/19 17:57 Abnormal lab findings: Abnormal Labs 03/10/19 03/10/19 03/10/19 17:57 17:57 17:57 WBC 1.2 L* RBC 2.46 L Hgb 7.9 L Hct 23.2 L MCV MCHC RDW 18.2 H Plt Count 47 L [place] # 0.9 H Seg Neuts % (Manual) 6.0 L Lymphocytes % (Manual) 74.0 H Monocytes % (Manual) 20.0 H Nucleated RBC % Seg Neutrophils # 0.1 L Seg Neutrophils # Man 0.1 L Lymphocytes # (Manual) 0.9 L Monocytes # (Manual) INR POC ABG pH POC ABG pCO2 POC ABG pO2 Potassium Chloride Carbon Dioxide BUN 46 H Creatinine 2.9 H Glucose 200 H POC Glucose Lactic Acid 2.50 H* Calcium 7.6 L Total Bilirubin AST ALT Total Creatine Kinase CK-MB (CK-2) Troponin T Total Protein Albumin 3.2 L Cholesterol LDL Cholesterol Direct HDL Cholesterol Urine WBC (Auto) Crossmatch 03/10/19 03/10/19 03/10/19 17:57 18:01 18:52 WBC RBC Hgb Hct MCV MCHC RDW Plt Count [place] # Seg Neuts % (Manual) Lymphocytes % (Manual) Monocytes % (Manual) Nucleated RBC % Seg Neutrophils # Seg Neutrophils # Man Lymphocytes # (Manual) Monocytes # (Manual) INR 1.15 H POC ABG pH POC ABG pCO2 POC ABG pO2 Potassium Chloride Carbon Dioxide BUN Creatinine Glucose POC Glucose 234 H Lactic Acid Calcium Total Bilirubin AST ALT Total Creatine Kinase CK-MB (CK-2) Troponin T Total Protein Albumin Cholesterol LDL Cholesterol Direct HDL Cholesterol Urine WBC (Auto) Crossmatch See Detail 03/10/19 03/10/19 03/10/19 19:16 20:56 21:32 WBC RBC Hgb Hct MCV MCHC RDW Plt Count [place] # Seg Neuts % (Manual) Lymphocytes % (Manual) Monocytes % (Manual) Nucleated RBC % Seg Neutrophils # Seg Neutrophils # Man Lymphocytes # (Manual) Monocytes # (Manual) INR POC ABG pH 7.274 L POC ABG pCO2 46.6 H POC ABG pO2 315 H Potassium Chloride Carbon Dioxide BUN Creatinine Glucose POC Glucose Lactic Acid 2.80 H* Calcium Total Bilirubin AST ALT Total Creatine Kinase CK-MB (CK-2) Troponin T Total Protein Albumin Cholesterol LDL Cholesterol Direct HDL Cholesterol Urine WBC (Auto) Crossmatch 03/10/19 03/10/19 03/11/19 23:06 23:29 00:50 WBC RBC Hgb Hct MCV MCHC RDW Plt Count [place] # Seg Neuts % (Manual) Lymphocytes % (Manual) Monocytes % (Manual) Nucleated RBC % Seg Neutrophils # Seg Neutrophils # Man Lymphocytes # (Manual) Monocytes # (Manual) INR POC ABG pH POC ABG pCO2 POC ABG pO2 Potassium Chloride Carbon Dioxide BUN Creatinine Glucose POC Glucose 237 H Lactic Acid Calcium Total Bilirubin AST ALT Total Creatine Kinase 513 H CK-MB (CK-2) Troponin T 0.075 H Total Protein Albumin Cholesterol < 4 L LDL Cholesterol Direct 4 L HDL Cholesterol < 3 L Urine WBC (Auto) 24.0 H Crossmatch 03/11/19 03/11/19 03/11/19 05:01 05:01 06:06 WBC RBC 2.29 L Hgb 7.3 L Hct 22.2 L MCV 97 H MCHC RDW 18.2 H Plt Count 40 L [place] # Seg Neuts % (Manual) 8.0 L Lymphocytes % (Manual) 67.0 H Monocytes % (Manual) 24.0 H Nucleated RBC % 5.0 H Seg Neutrophils # Seg Neutrophils # Man 0.4 L Lymphocytes # (Manual) Monocytes # (Manual) 1.2 H INR POC ABG pH POC ABG pCO2 32.8 L POC ABG pO2 Potassium 5.3 H Chloride Carbon Dioxide 19 L BUN 49 H Creatinine 3.7 H Glucose 203 H POC Glucose Lactic Acid Calcium 7.1 L Total Bilirubin AST ALT Total Creatine Kinase CK-MB (CK-2) Troponin T Total Protein Albumin Cholesterol LDL Cholesterol Direct HDL Cholesterol Urine WBC (Auto) Crossmatch 03/11/19 03/11/19 03/11/19 06:07 06:35 13:07 WBC RBC Hgb Hct MCV MCHC RDW Plt Count [place] # Seg Neuts % (Manual) Lymphocytes % (Manual) Monocytes % (Manual) Nucleated RBC % Seg Neutrophils # Seg Neutrophils # Man Lymphocytes # (Manual) Monocytes # (Manual) INR POC ABG pH POC ABG pCO2 POC ABG pO2 Potassium Chloride Carbon Dioxide BUN Creatinine Glucose POC Glucose 209 H 185 H Lactic Acid Calcium Total Bilirubin AST ALT Total Creatine Kinase 1156 H CK-MB (CK-2) 4.6 H Troponin T 0.077 H Total Protein Albumin Cholesterol LDL Cholesterol Direct HDL Cholesterol Urine WBC (Auto) Crossmatch 03/11/19 03/11/19 03/12/19 18:36 23:45 04:25 WBC RBC Hgb Hct MCV MCHC RDW Plt Count [place] # Seg Neuts % (Manual) Lymphocytes % (Manual) Monocytes % (Manual) Nucleated RBC % Seg Neutrophils # Seg Neutrophils # Man Lymphocytes # (Manual) Monocytes # (Manual) INR POC ABG pH 7.320 L POC ABG pCO2 POC ABG pO2 Potassium Chloride Carbon Dioxide BUN Creatinine Glucose POC Glucose 126 H 137 H Lactic Acid Calcium Total Bilirubin AST ALT Total Creatine Kinase CK-MB (CK-2) Troponin T Total Protein Albumin Cholesterol LDL Cholesterol Direct HDL Cholesterol Urine WBC (Auto) Crossmatch 03/12/19 03/12/19 03/12/19 05:06 05:06 05:57 WBC RBC 2.24 L Hgb 7.2 L Hct 21.9 L MCV 98 H MCHC RDW 18.3 H Plt Count 38 L [place] # Seg Neuts % (Manual) 4.0 L Lymphocytes % (Manual) Monocytes % (Manual) 69.0 H Nucleated RBC % Seg Neutrophils # Seg Neutrophils # Man 0.3 L Lymphocytes # (Manual) Monocytes # (Manual) 4.9 H INR POC ABG pH POC ABG pCO2 POC ABG pO2 Potassium 6.6 H* D Chloride Carbon Dioxide 17 L BUN 66 H Creatinine 5.6 H D Glucose 149 H POC Glucose 165 H Lactic Acid Calcium 6.5 L Total Bilirubin 1.90 H AST 782 H ALT 382 H Total Creatine Kinase CK-MB (CK-2) Troponin T Total Protein 5.7 L Albumin 2.7 L Cholesterol LDL Cholesterol Direct HDL Cholesterol Urine WBC (Auto) Crossmatch 03/12/19 03/12/19 03/12/19 07:19 15:24 18:55 WBC RBC Hgb Hct MCV MCHC RDW Plt Count [place] # Seg Neuts % (Manual) Lymphocytes % (Manual) Monocytes % (Manual) Nucleated RBC % Seg Neutrophils # Seg Neutrophils # Man Lymphocytes # (Manual) Monocytes # (Manual) INR POC ABG pH POC ABG pCO2 POC ABG pO2 Potassium 6.6 H* Chloride Carbon Dioxide BUN Creatinine Glucose POC Glucose 167 H 212 H Lactic Acid Calcium Total Bilirubin AST ALT Total Creatine Kinase CK-MB (CK-2) Troponin T Total Protein Albumin Cholesterol LDL Cholesterol Direct HDL Cholesterol Urine WBC (Auto) Crossmatch 03/12/19 03/13/19 03/13/19 23:45 05:37 09:11 WBC RBC Hgb Hct MCV MCHC RDW Plt Count [place] # Seg Neuts % (Manual) Lymphocytes % (Manual) Monocytes % (Manual) Nucleated RBC % Seg Neutrophils # Seg Neutrophils # Man Lymphocytes # (Manual) Monocytes # (Manual) INR POC ABG pH POC ABG pCO2 POC ABG pO2 Potassium Chloride Carbon Dioxide BUN 52 H Creatinine 5.5 H Glucose 235 H POC Glucose 197 H 250 H Lactic Acid Calcium 6.2 L Total Bilirubin AST ALT Total Creatine Kinase CK-MB (CK-2) Troponin T Total Protein Albumin Cholesterol LDL Cholesterol Direct HDL Cholesterol Urine WBC (Auto) Crossmatch 03/13/19 03/13/19 03/13/19 09:11 11:06 12:38 WBC RBC 1.99 L 2.07 L Hgb 6.4 L 6.6 L Hct 18.7 L* 19.6 L* MCV 95 H MCHC RDW 18.5 H 18.5 H Plt Count 36 L 33 L [place] # Seg Neuts % (Manual) Lymphocytes % (Manual) Monocytes % (Manual) Nucleated RBC % Seg Neutrophils # Seg Neutrophils # Man Lymphocytes # (Manual) Monocytes # (Manual) INR POC ABG pH POC ABG pCO2 POC ABG pO2 Potassium Chloride Carbon Dioxide BUN Creatinine Glucose POC Glucose 268 H Lactic Acid Calcium Total Bilirubin AST ALT Total Creatine Kinase CK-MB (CK-2) Troponin T Total Protein Albumin Cholesterol LDL Cholesterol Direct HDL Cholesterol Urine WBC (Auto) Crossmatch 03/13/19 03/13/19 03/13/19 18:11 19:12 20:58 WBC RBC Hgb Hct MCV MCHC RDW Plt Count [place] # Seg Neuts % (Manual) Lymphocytes % (Manual) Monocytes % (Manual) Nucleated RBC % Seg Neutrophils # Seg Neutrophils # Man Lymphocytes # (Manual) Monocytes # (Manual) INR POC ABG pH 7.466 H POC ABG pCO2 POC ABG pO2 Potassium Chloride Carbon Dioxide BUN Creatinine Glucose POC Glucose 255 H Lactic Acid Calcium Total Bilirubin AST ALT Total Creatine Kinase CK-MB (CK-2) Troponin T Total Protein Albumin Cholesterol LDL Cholesterol Direct HDL Cholesterol Urine WBC (Auto) Crossmatch See Detail 03/13/19 03/14/19 03/14/19 23:49 05:51 11:39 WBC RBC Hgb Hct MCV MCHC RDW Plt Count [place] # Seg Neuts % (Manual) Lymphocytes % (Manual) Monocytes % (Manual) Nucleated RBC % Seg Neutrophils # Seg Neutrophils # Man Lymphocytes # (Manual) Monocytes # (Manual) INR POC ABG pH POC ABG pCO2 POC ABG pO2 Potassium Chloride Carbon Dioxide BUN Creatinine Glucose POC Glucose 289 H 305 H 283 H Lactic Acid Calcium Total Bilirubin AST ALT Total Creatine Kinase CK-MB (CK-2) Troponin T Total Protein Albumin Cholesterol LDL Cholesterol Direct HDL Cholesterol Urine WBC (Auto) Crossmatch 03/14/19 03/14/19 03/15/19 13:43 18:12 00:43 WBC 14.0 H RBC 2.78 L Hgb 8.9 L Hct 26.0 L D MCV MCHC RDW 17.9 H Plt Count 42 L [place] # Seg Neuts % (Manual) 2.0 L Lymphocytes % (Manual) 84.0 H Monocytes % (Manual) 13.0 H Nucleated RBC % Seg Neutrophils # Seg Neutrophils # Man 0.3 L Lymphocytes # (Manual) 11.8 H Monocytes # (Manual) 1.8 H INR POC ABG pH POC ABG pCO2 POC ABG pO2 Potassium Chloride Carbon Dioxide BUN Creatinine Glucose POC Glucose 313 H 236 H Lactic Acid Calcium Total Bilirubin AST ALT Total Creatine Kinase CK-MB (CK-2) Troponin T Total Protein Albumin Cholesterol LDL Cholesterol Direct HDL Cholesterol Urine WBC (Auto) Crossmatch 03/15/19 03/15/19 03/15/19 04:24 07:15 07:15 WBC 16.1 H RBC 2.50 L Hgb 8.1 L Hct 23.4 L MCV MCHC 35 H RDW 18.5 H Plt Count 42 L [place] # Seg Neuts % (Manual) 2.0 L Lymphocytes % (Manual) 41.0 H Monocytes % (Manual) 11.0 H Nucleated RBC % Seg Neutrophils # Seg Neutrophils # Man 0.3 L Lymphocytes # (Manual) 6.6 H Monocytes # (Manual) 1.8 H INR POC ABG pH 7.497 H POC ABG pCO2 34.0 L POC ABG pO2 Potassium Chloride 96.0 L Carbon Dioxide BUN 47 H Creatinine 5.0 H Glucose 287 H POC Glucose Lactic Acid Calcium 7.2 L D Total Bilirubin AST 522 H ALT 474 H Total Creatine Kinase CK-MB (CK-2) Troponin T Total Protein 5.7 L Albumin 2.4 L Cholesterol LDL Cholesterol Direct HDL Cholesterol Urine WBC (Auto) Crossmatch 03/15/19 03/15/19 03/15/19 07:24 11:18 17:12 WBC RBC Hgb Hct MCV MCHC RDW Plt Count [place] # Seg Neuts % (Manual) Lymphocytes % (Manual) Monocytes % (Manual) Nucleated RBC % Seg Neutrophils # Seg Neutrophils # Man Lymphocytes # (Manual) Monocytes # (Manual) INR POC ABG pH POC ABG pCO2 POC ABG pO2 Potassium Chloride Carbon Dioxide BUN Creatinine Glucose POC Glucose 285 H 287 H 221 H Lactic Acid Calcium Total Bilirubin AST ALT Total Creatine Kinase CK-MB (CK-2) Troponin T Total Protein Albumin Cholesterol LDL Cholesterol Direct HDL Cholesterol Urine WBC (Auto) Crossmatch 03/15/19 03/16/19 03/16/19 23:19 03:49 05:26 WBC RBC Hgb Hct MCV MCHC RDW Plt Count [place] # Seg Neuts % (Manual) Lymphocytes % (Manual) Monocytes % (Manual) Nucleated RBC % Seg Neutrophils # Seg Neutrophils # Man Lymphocytes # (Manual) Monocytes # (Manual) INR POC ABG pH 7.487 H POC ABG pCO2 34.3 L POC ABG pO2 254 H Potassium Chloride Carbon Dioxide BUN Creatinine Glucose POC Glucose 297 H 271 H Lactic Acid Calcium Total Bilirubin AST ALT Total Creatine Kinase CK-MB (CK-2) Troponin T Total Protein Albumin Cholesterol LDL Cholesterol Direct HDL Cholesterol Urine WBC (Auto) Crossmatch 03/16/19 03/16/19 03/16/19 11:26 17:55 23:47 WBC RBC Hgb Hct MCV MCHC RDW Plt Count [place] # Seg Neuts % (Manual) Lymphocytes % (Manual) Monocytes % (Manual) Nucleated RBC % Seg Neutrophils # Seg Neutrophils # Man Lymphocytes # (Manual) Monocytes # (Manual) INR POC ABG pH POC ABG pCO2 POC ABG pO2 Potassium Chloride Carbon Dioxide BUN Creatinine Glucose POC Glucose 298 H 304 H 260 H Lactic Acid Calcium Total Bilirubin AST ALT Total Creatine Kinase CK-MB (CK-2) Troponin T Total Protein Albumin Cholesterol LDL Cholesterol Direct HDL Cholesterol Urine WBC (Auto) Crossmatch 03/17/19 03/17/19 03/17/19 04:08 05:30 05:30 WBC 18.8 H RBC 2.13 L Hgb 6.9 L Hct 20.0 L MCV MCHC 35 H RDW 18.4 H Plt Count 34 L [place] # Seg Neuts % (Manual) Lymphocytes % (Manual) Monocytes % (Manual) Nucleated RBC % Seg Neutrophils # Seg Neutrophils # Man Lymphocytes # (Manual) Monocytes # (Manual) INR POC ABG pH 7.491 H POC ABG pCO2 31.1 L POC ABG pO2 70 L Potassium 3.5 L Chloride 96.6 L Carbon Dioxide BUN 86 H Creatinine 7.4 H Glucose 222 H POC Glucose Lactic Acid Calcium 6.9 L Total Bilirubin AST ALT Total Creatine Kinase CK-MB (CK-2) Troponin T Total Protein Albumin Cholesterol LDL Cholesterol Direct HDL Cholesterol Urine WBC (Auto) Crossmatch 03/17/19 05:55 WBC RBC Hgb Hct MCV MCHC RDW Plt Count [place] # Seg Neuts % (Manual) Lymphocytes % (Manual) Monocytes % (Manual) Nucleated RBC % Seg Neutrophils # Seg Neutrophils # Man Lymphocytes # (Manual) Monocytes # (Manual) INR POC ABG pH POC ABG pCO2 POC ABG pO2 Potassium Chloride Carbon Dioxide BUN Creatinine Glucose POC Glucose 218 H Lactic Acid Calcium Total Bilirubin AST ALT Total Creatine Kinase CK-MB (CK-2) Troponin T Total Protein Albumin Cholesterol LDL Cholesterol Direct HDL Cholesterol Urine WBC (Auto) Crossmatch Chest x-ray: image reviewed (basilar infiltrates) Allied health notes reviewed: nursing
[2019-03-17] MEDS: PROTONIX IV SCH (10:00)
[2019-03-17] MEDS: ROCEPHIN/NS 2 GM/100 ML 2 GM/100 ML BAG IV SCH ×2 (10:00→22:35)
[2019-03-17] MEDS: SODIUM CHLORIDE FLUSH SYRINGE 10 ML IV SCH ×2 (10:00→22:35)
[2019-03-17] MEDS ORDERED: NACL 0.9% 100 ML IV PRN (10:27)
[2019-03-17] MEDS: LANTUS SUB-Q SCH (10:30)
--- NOTE | 2019-03-17 10:51 | Progress Note ---
Assessment and Plan - Patient Problems (1) Acute on chronic renal failure Current Visit: Yes Status: Acute Qualifiers: Chronic kidney disease stage: stage 3 (moderate) Plan to address problem: secondary to acute tubular necrosis in the setting of cardiac arrest, streptococcal bacteremia . Patient remains anuric. cont HD on MWF schedule along with isolated UF on TTS schedule for volume control/solute clearance. renal US showed no acute abnormalities. complement levels are normal, ANCA studies pending. UA noted for microscopic hematuria/proteinuria, so will need to r/o GN etiologies. Overall prognosis guarded. (2) Hyperkalemia Current Visit: Yes Status: Acute Plan to address problem: K corrected with HD, cont 2g K renal diet (3) Cardiopulmonary arrest with successful resuscitation Current Visit: Yes Status: Acute Plan to address problem: ROSC in ER about 2 doses of epinephrine. Patient is on Levothroid at this time and cardiology evaluation has been reviewed and noted. Patient also had a repeat echocardiogram done and reviewed with EF 40-45% and impaired relaxation noted. We'll follow up with further recommendations from cardiology standpoint (4) Sepsis Current Visit: Yes Status: Acute Qualifiers: Sepsis type: Streptococcus group B Qualified Code(s): A40.1 - Sepsis due to streptococcus, group B Plan to address problem: Streptococcal bacteremia noted on initial blood cultures. cont ABXs as per ID recommendations, dose meds for HD (5) Metabolic acidosis Current Visit: Yes Status: Acute Plan to address problem: corrected with HD (6) T2DM (type 2 diabetes mellitus) Current Visit: Yes Status: Acute Qualifiers: Diabetes mellitus fdc insulin use: unspecified fdc insulin use status Plan to address problem: diabetes management per primary attending. Subjective Date of service: 03/17/19 Principal diagnosis: s/p cardiac arrest; acute hypoxemic resp failure; ISMAEL; hyperkalemia, Sepsis Interval history: Pt remains intubated, off levo, tolerating HD well without hypotensive episodes Objective - Vital Signs Vital signs: Vital Signs - 12hr 03/16/19 03/16/19 03/16/19 23:00 23:31 23:37 Temperature Pulse Rate 85 87 88 Respiratory 28 H 28 H Rate Blood Pressure 150/32 153/27 153/27 O2 Sat by Pulse 92 88 94 Oximetry O2 Sat by Pulse Oximetry [ Anterior Bilateral Throughout] O2 Sat by Pulse Oximetry [ Throughout] 0603/17/19 03/17/19 23:58 00:00 00:31 Temperature 100.8 F H Pulse Rate 90 85 Respiratory 29 H 26 H Rate Blood Pressure 153/40 153/23 O2 Sat by Pulse 88 93 Oximetry O2 Sat by Pulse Oximetry [ Anterior Bilateral Throughout] O2 Sat by Pulse Oximetry [ Throughout] 03/17/19 03/17/19 03/17/19 01:01 01:30 02:01 Temperature Pulse Rate 88 91 H 92 H Respiratory 28 H 24 30 H Rate Blood Pressure 139/33 146/26 121/30 O2 Sat by Pulse 91 92 92 Oximetry O2 Sat by Pulse Oximetry [ Anterior Bilateral Throughout] O2 Sat by Pulse Oximetry [ Throughout] 03/17/19 03/17/19 03/17/19 02:31 03:01 03:31 Temperature Pulse Rate 96 H 90 89 Respiratory 33 H 28 H 31 H Rate Blood Pressure 141/41 162/28 222/21 O2 Sat by Pulse 78 L 91 88 Oximetry O2 Sat by Pulse Oximetry [ Anterior Bilateral Throughout] O2 Sat by Pulse Oximetry [ Throughout] 03/17/19 03/17/19 03/17/19 03:51 04:00 04:30 Temperature 100.6 F H Pulse Rate 89 92 H 86 Respiratory 30 H 29 H Rate Blood Pressure 116/18 116/28 113/24 O2 Sat by Pulse 92 90 92 Oximetry O2 Sat by Pulse Oximetry [ Anterior Bilateral Throughout] O2 Sat by Pulse Oximetry [ Throughout] 03/17/19 03/17/19 03/17/19 05:00 05:30 06:00 Temperature Pulse Rate 86 86 87 Respiratory 26 H 27 H 26 H Rate Blood Pressure 128/26 111/28 108/28 O2 Sat by Pulse 92 91 91 Oximetry O2 Sat by Pulse Oximetry [ Anterior Bilateral Throughout] O2 Sat by Pulse Oximetry [ Throughout] 03/17/19 03/17/19 03/17/19 06:30 07:00 07:31 Temperature Pulse Rate 84 91 H 89 Respiratory 25 H 27 H 23 Rate Blood Pressure 118/26 115/31 111/30 O2 Sat by Pulse 89 92 90 Oximetry O2 Sat by Pulse Oximetry [ Anterior Bilateral Throughout] O2 Sat by Pulse Oximetry [ Throughout] 03/17/19 03/17/19 03/17/19 08:00 08:01 08:20 Temperature 99.1 F Pulse Rate 88 90 92 H Respiratory 28 H 34 H Rate Blood Pressure 151/40 112/30 120/33 O2 Sat by Pulse 94 91 91 Oximetry O2 Sat by Pulse Oximetry [ Anterior Bilateral Throughout] O2 Sat by Pulse Oximetry [ Throughout] 03/17/19 03/17/19 03/17/19 08:30 09:00 09:15 Temperature 99.1 F Pulse Rate 92 H 92 H 87 Respiratory 36 H 32 H Rate Blood Pressure 126/46 116/31 111/32 O2 Sat by Pulse 90 88 Oximetry O2 Sat by Pulse 94 Oximetry [ Anterior Bilateral Throughout] O2 Sat by Pulse 94 Oximetry [ Throughout] 03/17/19 03/17/19 03/17/19 09:30 09:45 10:00 Temperature Pulse Rate 87 86 89 Respiratory 30 H 31 H Rate Blood Pressure 112/38 107/21 114/34 O2 Sat by Pulse 88 90 Oximetry O2 Sat by Pulse Oximetry [ Anterior Bilateral Throughout] O2 Sat by Pulse Oximetry [ Throughout] 03/17/19 03/17/19 10:14 10:15 Temperature Pulse Rate 89 88 Respiratory Rate Blood Pressure 129/30 107/31 O2 Sat by Pulse 94 Oximetry O2 Sat by Pulse Oximetry [ Anterior Bilateral Throughout] O2 Sat by Pulse Oximetry [ Throughout] - General Appearance General appearance: well-developed, well-nourished, intubated, comatose EENT: ATNC, mucous membranes moist Neck: no JVD Respiratory: Present: Decreased Breath Sounds Cardiology: regular, S1S2 Gastrointestinal: normoactive bowel sounds, obese Integumentary: no rash, other (++ edema b/l LE ) Neurologic: other (intuabted, unresponsive ) - Lab 03/17/19 05:30 03/17/19 05:30 Most recent lab results Calcium 6.9 mg/dL (8.4-10.2) L 03/17/19 05:30 Magnesium 1.80 mg/dL (1.7-2.3) 03/17/19 05:30 Medications & Allergies - Medications Allergies/Adverse Reactions: Allergies No Known Allergies Allergy (Verified 03/10/19 17:37) Home Medications: Home Medications Medication Instructions Recorded Confirmed Last Taken Type Allopurinol [Zyloprim] 300 mg PO DAILY 03/10/19 03/10/19 Unknown History Aspirin [Adult Aspirin] 81 mg PO DAILY 03/10/19 03/10/19 Unknown History Atorvastatin [Lipitor Tab] 80 mg PO DAILY 03/10/19 03/10/19 Unknown History Carvedilol [Coreg] 12.5 mg PO BID 03/10/19 03/10/19 Unknown History Clopidogrel [Plavix] 75 mg PO DAILY 03/10/19 03/10/19 Unknown History Gabapentin [Neurontin] 300 mg PO BID 03/10/19 03/10/19 Unknown History Insulin Lispro Protamin/Lispro 33 unit SQ BID 03/10/19 03/10/19 Unknown History [Humalog Mix 75-25 Vial] Lisinopril [Zestril TAB] 10 mg PO DAILY 03/10/19 03/10/19 Unknown History Pantoprazole [Protonix] 40 mg PO DAILY 03/10/19 03/10/19 Unknown History Sitagliptin Phosphate [Januvia] 50 mg PO DAILY 03/10/19 03/10/19 Unknown History Active Medications: Generic Name Dose Route Start Last Admin Trade Name Freq PRN Reason Stop Dose Admin Acetaminophen 650 mg 03/11/19 00:40 03/15/19 00:49 Tylenol PO 650 mg Q4H PRN Administration Pain MILD(1-3)/Fever >100.5/[place] Acetaminophen 650 mg 03/11/19 00:40 03/12/19 04:53 Tylenol ID 650 mg Q4H PRN Administration Pain MILD(1-3)/Fever >100.5/[place] Albumin Human 12.5 gm 03/13/19 09:29 Alburx 25% (Albumin) IV DUKE PRN Hypotension Lipase/Protease/Amylase 1 each 03/15/19 13:21 Pancreaze 10,500 Unit FEEDTUBE PRN PRN For Clogged Feeding Tube Dextrose 50 ml 03/11/19 00:44 D50w (25gm) Syringe IV PRN PRN Hypoglycemia Fentanyl 50 mcg 03/11/19 07:50 Sublimaze IV Q10MIN PRN ANALGESIA Hydrophilic Ointment 1 applic 03/10/19 19:50 Vaseline Lip Therapy TP Q2HR PRN Dry Lips Propofol 1,000 mg in 100 mls @ 4.082 mls/hr 03/10/19 20:00 03/11/19 14:30 Diprivan 10 Mg/Ml IV Infused TITR ROXANNE Titration Protocol 5 MCG/KG/MIN Norepinephrine 4 mg in 250 mls @ 7.5 mls/hr 03/10/19 21:00 03/15/19 20:30 Levophed Drip 4 Mg/Ns 250 Ml IV 0 mcg/min TITR ROXANNE 0 mls/hr Titration Protocol 2 MCG/MIN Fentanyl Citrate 2,000 mcg in 100 mls @ 6.804 mls/hr 03/11/19 08:00 03/11/19 19:43 Fentanyl Drip Premix IV 0 mcg/kg/hr TITR ROXANNE 0 mls/hr Titration Protocol 1 MCG/KG/HR Ceftriaxone Sodium 2 gm in 100 mls @ 200 mls/hr 03/11/19 13:00 03/16/19 21:40 Rocephin/Ns 2 Gm/100 Ml IV 200 mls/hr Q12HR ROXANNE Administration Protocol Clindamycin HCl 900 mg in 50 mls @ 100 mls/hr 03/13/19 09:00 03/17/19 00:43 Cleocin 900 Mg/50 Ml IV 100 mls/hr Q8H ROXANNE Administration Sodium Chloride 100 mls @ 999 mls/hr 03/15/19 08:11 Nacl 0.9% IV DUKE PRN Hypotension Insulin Glargine 30 units 03/16/19 10:00 03/16/19 10:49 Lantus SUB-Q 30 units DAILY ROXANNE Administration Insulin Human Lispro 0 unit 03/11/19 06:00 03/17/19 06:11 Humalog SUB-Q 4 unit Q6HR ROXANNE Administration Protocol Lansoprazole 30 mg 03/18/19 10:00 Prevacid Solutab FEEDTUBE QDAY ROXANNE Multi-Ingred Cream/Lotion/Oil/Oint 1 applic 03/10/19 19:50 Artificial Tears Ophth Oint OU Q4HR PRN Dry Eye(s) Ondansetron HCl 4 mg 03/11/19 00:40 Zofran IV Q8H PRN Nausea And Vomiting Pantoprazole Sodium 40 mg 03/15/19 10:00 03/16/19 09:58 Protonix IV 03/17/19 14:00 40 mg QDAY ROXANNE Administration Simple Syrup 15 ml 03/15/19 13:21 Simple Syrup FEEDTUBE PRN PRN Hypoglycemia Simple Syrup 30 ml 03/15/19 13:21 Simple Syrup FEEDTUBE PRN PRN Hypoglycemia Sodium Bicarbonate 325 mg 03/15/19 13:21 Sodium Bicarbonate FEEDTUBE PRN PRN For Clogged Feeding Tube Sodium Chloride 10 ml 03/11/19 10:00 03/16/19 21:41 Sodium Chloride Flush Syringe 10 Ml IV 10 ml BID ROXANNE Administration Sodium Chloride 10 ml 03/11/19 00:40 Sodium Chloride Flush Syringe 10 Ml IV PRN PRN LINE FLUSH
[2019-03-17] MEDS ORDERED: LANTUS SUB-Q SCH (10:57)
[2019-03-17] MEDS ORDERED: NACL 0.9% 500 ML 500 ML IV NR (11:20)
--- NOTE | 2019-03-17 11:35 | Progress Note ---
Assessment and Plan Cultures: Blood culture 03/10/2019 Group-A Strep 2 of 4 bottles Tracheal asp 03/10/2019 poor specimen Blood culture 03/12/2019 no growth today C diff negative 03/14/2019 trach aspirate culture: no growth in 24 hours Assessment: 54 y/o male with history of diabetes, hypertension, chronic kidney disease, coronary artery disease admitted on 03/10/2019 due to a week history of facial/mouth pain (?dental pain) associated with generalized weakness, cold sensation, cough with sputum production and body aches, 48 hour-history of sore throat, in the ED patient went into PEA arrest s/p CPR: 1) Severe Sepsis with PEA arrest and transient shock post arrest: still with fever. Etiology likely due to GAS bacteremia. UA with 24 wbc with no LE ? mild UTI (does not explain severity of sepsis). Influenza rapid negative. CXR and CT chest no consolidations. 2) Invasive Group-A Strep bacteremia/toxic shock syndrome: source unclear ?tonsillopharingitis, ?dental abscess, ?early aspiration pneumonia. Blood culture 03/10/2019 Group-A Strep [address] face showed a small right mandibular premolar abscess, poor dentition and chronic sinusitis. TTE no vegetations. 3) Acute encephalopathy: not better; post arrest +/- due to infection ? ischemic brain injury. CT head some indistinctness and loss of dean-white matter differentiation and indistinct visualization of the basal ganglia. This is nonspecific finding but may be seen with diffuse hypoxic ischemic brain injury. 4) Acute respiratory failure: intubated. CT chest without contrast shows pericardial effusion measuring up to 1.4 cm in transverse diameter, posterior atelectasis both lungs. Minimal pleural fluid collection. 5) Thrombocytopenia: from sepsis. 6) ISMAEL on CKD: renally adjusted meds. Now on HD had a fem vas cath 7) Elevated LFTs: probably from shock and sepsis, but need to monitor. Recommendations: - continue clindamycin 900 mg IV q8h and continue ceftriaxone for Group-A Strep bacteremia/toxic shock syndrome - given persistent fevers, consider removal / exchange of R femoral vascath - recheck LFTs tomorrow - recheck CBC with differential tomorrow Overall, guarded prognosis. Dimple Horton MD [facility] C: [phone] O: [phone] F: [phone] Subjective Date of service: 03/17/19 Principal diagnosis: s/p cardiac arrest; acute hypoxemic resp failure; ISMAEL; hyperkalemia, Sepsis Interval history: Patient with persistent low grade fevers. Remains on antibiotics. Remains on the vent, intubated. Neurostatus unchanged. Objective - Exam Narrative Exam: Physical Exam: Constitutional: intubated. Obese Head, Ears, Nose: Normocephalic, atraumatic. External ears, nose normal Eyes: Conjunctivae/corneas clear. No icterus. No ptosis. Neck: intubated Oral: intubated Cardiovascular: S1, S2 normal. Respiratory: Good air entry, clear to auscultation bilaterally GI: Soft, non-tender; bowel sounds normal. No peritoneal signs Musculoskeletal: Edema. Obese Skin: No rash or abscess. Superficial wounds on sacral region Hem/Lymphatic: No palpable cervical or supraclavicular nodes. No lymphangitis Psych: no agitation Neurological: intubated, on vent Lines: R femoral HD cath - Constitutional Vitals: Vital Signs Temp Pulse Resp BP Pulse Ox 99.1 F 88 31 H 107/31 94 03/17/19 08:30 03/17/19 10:15 03/17/19 10:00 03/17/19 10:15 03/17/19 10:14 Temperature -Last 24 Hours Temperature 99.1 F Temperature 99.1 F Temperature 100.6 F Temperature 100.8 F Temperature 100.9 F Temperature 100.5 F Temperature 100.3 F - Labs CBC & Chem 7: 03/17/19 05:30 03/17/19 05:30 Labs: Abnormal lab results 03/16/19 03/16/19 03/16/19 Range/Units 11:26 17:55 23:47 WBC (4.5-11.0) K/mm3 RBC (3.65-5.03) M/mm3 Hgb (11.8-15.2) gm/dl Hct (35.5-45.6) % MCHC (32-34) % RDW (13.2-15.2) % Plt Count (140-440) K/mm3 POC ABG pH (7.35-7.45) POC ABG pCO2 (35-45) POC ABG pO2 (80-105) Potassium (3.6-5.0) mmol/L Chloride (98-107) mmol/L BUN (9-20) mg/dL Creatinine (0.8-1.5) mg/dL Glucose (75-100) mg/dL POC Glucose 298 H 304 H 260 H (70-105) Calcium (8.4-10.2) mg/dL 03/17/19 03/17/19 03/17/19 Range/Units 04:08 05:30 05:30 WBC 18.8 H (4.5-11.0) K/mm3 RBC 2.13 L (3.65-5.03) M/mm3 Hgb 6.9 L (11.8-15.2) gm/dl Hct 20.0 L (35.5-45.6) % MCHC 35 H (32-34) % RDW 18.4 H (13.2-15.2) % Plt Count 34 L (140-440) K/mm3 POC ABG pH 7.491 H (7.35-7.45) POC ABG pCO2 31.1 L (35-45) POC ABG pO2 70 L (80-105) Potassium 3.5 L (3.6-5.0) mmol/L Chloride 96.6 L (98-107) mmol/L BUN 86 H (9-20) mg/dL Creatinine 7.4 H (0.8-1.5) mg/dL Glucose 222 H (75-100) mg/dL POC Glucose (70-105) Calcium 6.9 L (8.4-10.2) mg/dL 03/17/19 Range/Units 05:55 WBC (4.5-11.0) K/mm3 RBC (3.65-5.03) M/mm3 Hgb (11.8-15.2) gm/dl Hct (35.5-45.6) % MCHC (32-34) % RDW (13.2-15.2) % Plt Count (140-440) K/mm3 POC ABG pH (7.35-7.45) POC ABG pCO2 (35-45) POC ABG pO2 (80-105) Potassium (3.6-5.0) mmol/L Chloride (98-107) mmol/L BUN (9-20) mg/dL Creatinine (0.8-1.5) mg/dL Glucose (75-100) mg/dL POC Glucose 218 H (70-105) Calcium (8.4-10.2) mg/dL
[2019-03-17] MEDS ORDERED: NACL 0.9% 1000 ML 1,000 ML ONE (11:54)
--- NOTE | 2019-03-17 12:48 | Progress Note ---
Assessment and Plan Cont supportive management. Will follow on as needed basis. The patient has been seen in conjunction with Dr. Baer who agrees with the asses sment and plan of care. - Patient Problems (1) Cardiopulmonary arrest with successful resuscitation Current Visit: Yes Status: Acute (2) Acute respiratory failure Current Visit: Yes Status: Acute Qualifiers: Respiratory failure complication: hypoxia Qualified Code(s): J96.01 - Acute respiratory failure with hypoxia (3) Sepsis Current Visit: Yes Status: Acute Qualifiers: Sepsis type: Streptococcus group B Qualified Code(s): A40.1 - Sepsis due to streptococcus, group B (4) Hypotension Current Visit: Yes Status: Acute (5) CAD (coronary artery disease) Current Visit: Yes Status: Chronic Qualifiers: Coronary Disease-Associated Artery/Lesion type: [place] artery [place] vs. transplanted heart: [place] heart (6) Stented coronary artery Current Visit: Yes Status: Chronic (7) Pancytopenia Current Visit: Yes Status: Acute (8) Elevated troponin Current Visit: Yes Status: Acute (9) Acute on chronic renal failure Current Visit: Yes Status: Acute Qualifiers: Chronic kidney disease stage: stage 3 (moderate) (10) Diabetes Current Visit: Yes Status: Chronic (11) Obesity Current Visit: Yes Status: Chronic (12) Altered mental status Current Visit: Yes Status: Acute Subjective Date of service: 03/17/19 Principal diagnosis: s/p cardiac arrest; acute hypoxemic resp failure; ISMAEL; hyperkalemia, Sepsis Interval history: pt remains intubated, unresponsive off sedation, on levophed. Objective Last Vital Signs Temp 99.1 F 03/17/19 08:30 Pulse 89 03/17/19 12:15 Resp 31 H 03/17/19 10:00 BP 149/39 03/17/19 12:15 Pulse Ox 94 03/17/19 10:14 - Physical Examination General: Other (intubated, withdraws from pain) HEENT: Positive: Normocephaly Neck: Positive: neck supple, trachea midline Cardiac: Positive: Reg Rate and Rhythm, S1/S2 Lungs: Positive: Ventilated Respirations Neuro: Positive: Other (intubated, withdraws from pain) Abdomen: Positive: Other (Obese) /Rectal: Other Skin: Positive: Clear. Negative: Rash Musculoskeletal: Decreased Range of Motion, No Pain Extremities: Present: Other (Generalized edema ) - Labs and Meds CBC 03/17/19 Range/Units 05:30 WBC 18.8 H (4.5-11.0) K/mm3 RBC 2.13 L (3.65-5.03) M/mm3 Hgb 6.9 L (11.8-15.2) gm/dl Hct 20.0 L (35.5-45.6) % Plt Count 34 L (140-440) K/mm3 Comprehensive Metabolic Panel 03/17/19 Range/Units 05:30 Sodium 140 (137-145) mmol/L Potassium 3.5 L (3.6-5.0) mmol/L Chloride 96.6 L (98-107) mmol/L Carbon Dioxide 24 (22-30) mmol/L BUN 86 H (9-20) mg/dL Creatinine 7.4 H (0.8-1.5) mg/dL Glucose 222 H (75-100) mg/dL Calcium 6.9 L (8.4-10.2) mg/dL - Imaging and Cardiology EKG: image reviewed Echo: report reviewed ( 03/05/2019 showed EF 60-65%, mild LVH, LA mildly dilated, small pericardial effusion. ) - EKG Sinus rhythms and dysrhythmias: sinus rhythm AV and intraventricular conduction: left anterior fascicular - Allied health notes Allied health notes reviewed: nursing
[2019-03-17] MEDS: PROVENTIL IH SCH (15:42)
[2019-03-17] MEDS ORDERED: ATIVAN IV ONE (15:48)
[2019-03-17] MEDS: TYLENOL PO PRN (16:45)
--- NOTE | 2019-03-17 17:01 | Progress Note ---
Assessment and Plan Assessment and plan: 54-year-old man admitted history of hypertension, diabetes, chronic kidney disease, coronary artery disease was brought to the emergency room for evaluation of shortness of breath, generalized body aches. and daughter at bedside state that he's been sick for a month and a half. Also complaining of chills. She states that he had diarrhea for one month, got worse. + Decrease oral intake AND SOME FACIAL/ORAL PAIN Chest x-ray was ordered in the emergency room, while the police crime scene technician was trying to get help to get the x-ray done, upon return to the room, the patient was not breathing. He was successfully resuscitated, intubated. He was started on vancomycin, Zosyn and levophed drip. Admitted for Acute resp failure s/p cardiac arrest and Septic shock. Same condition. Daughter reports he has had worsening leg edema and increasing abdominal girth for last 2 months. Daughter denies sick contacts. initial imaging CXR shows cardiac silhouette is enlarged. No evidence of airspace consolidation or pleural effusions. CT chest without contrast shows pericardial effusion measuring up to 1.4 cm in transverse diameter, posterior atelectasis both lungs. Minimal pleural fluid collection. CT head some indistinctness and loss of dean-white matter differentiation and indistinct visualization of the basal ganglia. Cultures: GAS bactermia Negative Influenza test Acute Hypoxic Respiratory Failure: On mechanical ventilation >96hrs. Pulmonary following Severe Sepsis with Shock: Continues on pressors. ?Peridental abscess vs Group A strep. ID following, continues on abx, No evidence of Endocarditis on TTE DM type 2 with hyperglycemia-POA: ADJUST Lantus and adjust sliding scale Insulin ?Some Jerking activity following NGT ?seizure, ?diffused hypoxic ischemic brain injury: Consult Neurology severe Anemia- Transfuse Thrombocytopenia ?DIC secondary to underlying condition: Hold Antiplatelets S/P Cardiac arrest -PEA Rhythm, In the radiology suite shortly after presentation to the ED. Pericardia effusion: Cardiology following CKD 4 possible progression to ESRD: CONTINUE HD, FEMO VAS CATH IN PLACE, Morbid obesity: Counselling when more awake Severe Protein calorie malnutrition: Water Filtration Technician consult Acute Metabolic Encephalopathy: Neurology consulted ?ischemic brain injury Diarrhea-C,DIFF RULED OUT- FMS SHOCK LIVER-HEPATIC FAILURE- CAD-POA Sacral Pressure ulcer- Wound care consult poor prognosis No family at bedside, case discussed with Metal Furniture Assembler The high probability of a clinically significant, sudden or life threatening deterioration of the [PULMONARY, CARDIAC, HEAMTOLOGY, RENAL, FAST FOOD TEAM MEMBER, HEPATIC] sy stem(s) required my full and direct attention, intervention and personal management. The aggregate critical care time was [35] minutes. This time is in addition to time spent performing reported procedures but includes the following: [X] Data Review and interpretation [X] Patient assessment and monitoring of vital signs [X] Documentation [X] Medication orders and management History Interval history: Patient seen and examined, remains on pressors, lethargic, still with diarrhea. FMS in place Hospitalist Physical - Physical exam Narrative exam: General appearance: Present: mild distress, well-nourished, obese - EENT Eyes: Present: PERRL ENT: hearing intact, other (ALTHOUGH LETHARGIC, STILL ATTEMPTS TO OPEN EYE ON PROMPTING) - Neck Neck: Present: supple, normal ROM - Respiratory Respiratory effort: other (ON MECHANICAL VENTILATION) Respiratory: bilateral: diminished - Cardiovascular Rhythm: irregularly irregular Heart Sounds: Present: S1 & S2, systolic murmur - Extremities Extremities: no ischemia, pulses intact, pulses symmetrical Extremity abnormal: edema (+2) Peripheral Pulses: within normal limits - Abdominal General gastrointestinal: soft, distended, normal bowel sounds - Integumentary Integumentary: Present:skin excoriations warm, dry - Psychiatric Psychiatric: other (UNABLE TO ACCCESS) - Neurologic Neurologic: other (UNABLE TO ACCESS) - Constitutional Vitals: Temp Pulse Resp BP Pulse Ox 97.9 F 96 H 35 H 137/43 93 03/17/19 12:00 03/17/19 15:52 03/17/19 15:52 03/17/19 15:49 03/17/19 15:49 General appearance: Present: mild distress, well-nourished, obese Results - Labs CBC & Chem 7: 03/17/19 05:30 03/17/19 05:30 Labs: Laboratory Last Values WBC 18.8 K/mm3 (4.5-11.0) H 03/17/19 05:30 RBC 2.13 M/mm3 (3.65-5.03) L 03/17/19 05:30 Hgb 6.9 gm/dl (11.8-15.2) L 03/17/19 05:30 Hct 20.0 % (35.5-45.6) L 03/17/19 05:30 MCV 94 fl (84-94) 03/17/19 05:30 MCH 32 pg (28-32) 03/17/19 05:30 MCHC 35 % (32-34) H 03/17/19 05:30 RDW 18.4 % (13.2-15.2) H 03/17/19 05:30 Plt Count 34 K/mm3 (140-440) L 03/17/19 05:30 [place] % (Auto) Runner On 03/15/19 07:15 Eos % (Auto) 0.4 % (0.0-4.3) 03/10/19 17:57 [place] # 0.9 K/mm3 (0.0-0.8) H 03/10/19 17:57 Eos # 0.0 K/mm3 (0.0-0.4) 03/10/19 17:57 Baso # 0.0 K/mm3 (0.0-0.1) 03/10/19 17:57 Add Manual Diff Complete 03/15/19 07:15 Total Counted 100 03/15/19 07:15 Seg Neutrophils % Runner On 03/15/19 07:15 Seg Neuts % (Manual) 2.0 % (40.0-70.0) L 03/15/19 07:15 0 % 03/15/19 07:15 41.0 % (13.4-35.0) H 03/15/19 07:15 Reactive Lymphs % (Man) 11.0 % 03/15/19 07:15 11.0 % (0.0-7.3) H 03/15/19 07:15 0 % (0.0-4.3) 03/15/19 07:15 0 % (0.0-1.8) 03/15/19 07:15 0 % 03/15/19 07:15 0 % 03/15/19 07:15 0 % 03/15/19 07:15 35.0 % 03/15/19 07:15 Nucleated RBC % Not Reportable 03/15/19 07:15 Seg Neutrophils # 0.1 K/mm3 (1.8-7.7) L 03/10/19 17:57 Seg Neutrophils # Man 0.3 K/mm3 (1.8-7.7) L 03/15/19 07:15 Band Neutrophils # 0.0 K/mm3 03/15/19 07:15 6.6 K/mm3 (1.2-5.4) H 03/15/19 07:15 Abs React Lymphs (Man) 1.8 K/mm3 03/15/19 07:15 1.8 K/mm3 (0.0-0.8) H 03/15/19 07:15 0.0 K/mm3 (0.0-0.4) 03/15/19 07:15 0.0 K/mm3 (0.0-0.1) 03/15/19 07:15 0.0 K/mm3 03/15/19 07:15 0.0 K/mm3 03/15/19 07:15 0.0 K/mm3 03/15/19 07:15 Blast Cells # 0.5 K/mm3 03/15/19 07:15 Pathologist Review 03/10/19 17:57 WBC Morphology Not Reportable 03/15/19 07:15 Hypersegmented Neuts Not Reportable 03/15/19 07:15 Hyposegmented Neuts Not Reportable 03/15/19 07:15 Hypogranular Neuts Not Reportable 03/15/19 07:15 Not Reportable 03/15/19 07:15 Not Reportable 03/15/19 07:15 Not Reportable 03/15/19 07:15 Not Reportable 03/15/19 07:15 Not Reportable 03/15/19 07:15 Not Reportable 03/15/19 07:15 Appears decreased 03/15/19 07:15 Not Reportable 03/15/19 07:15 Plt Clumps, EDTA Not Reportable 03/15/19 07:15 Not Reportable 03/15/19 07:15 Not Reportable 03/15/19 07:15 Not Reportable 03/15/19 07:15 Plt Morphology Comment Not Reportable 03/15/19 07:15 RBC Morphology Not Reportable 03/15/19 07:15 Dimorphic RBCs Not Reportable 03/15/19 07:15 Few 03/15/19 07:15 Few 03/15/19 07:15 Not Reportable 03/15/19 07:15 Not Reportable 03/15/19 07:15 Not Reportable 03/15/19 07:15 Not Reportable 03/15/19 07:15 Not Reportable 03/15/19 07:15 Not Reportable 03/15/19 07:15 Not Reportable 03/15/19 07:15 Not Reportable 03/15/19 07:15 Rare 03/15/19 07:15 Not Reportable 03/15/19 07:15 Not Reportable 03/15/19 07:15 Not Reportable 03/15/19 07:15 Not Reportable 03/15/19 07:15 Not Reportable 03/15/19 07:15 Not Reportable 03/15/19 07:15 Not Reportable 03/15/19 07:15 1+ 03/15/19 07:15 Acanthocytes (Spur) 1+ 03/15/19 07:15 Rouleaux Not Reportable 03/15/19 07:15 Not Reportable 03/15/19 07:15 Not Reportable 03/15/19 07:15 Not Reportable 03/15/19 07:15 Not Reportable 03/15/19 07:15 Hem Pathologist Commnt Sent to pathology 03/15/19 07:15 PT 14.4 Sec. (12.2-14.9) 03/10/19 17:57 INR 1.15 (0.87-1.13) H 03/10/19 17:57 APTT 28.8 Sec. (24.2-36.6) 03/10/19 17:57 POC ABG pH 7.491 (7.35-7.45) H 03/17/19 04:08 POC ABG pCO2 31.1 (35-45) L 03/17/19 04:08 POC ABG pO2 70 (80-105) L 03/17/19 04:08 POC ABG HCO3 23.8 (22-26 mml/L) 03/17/19 04:08 POC ABG Total CO2 25 (23-27mmol/L) 03/17/19 04:08 POC ABG O2 Sat 95 03/17/19 04:08 POC ABG Base Excess 0 ((-2) - (+3)mmol/L) 03/17/19 04:08 VBG pH 7.381 (7.320-7.420) 03/10/19 17:57 30 % 03/17/19 04:08 Sodium 140 mmol/L (137-145) 03/17/19 05:30 Potassium 3.5 mmol/L (3.6-5.0) L 03/17/19 05:30 Chloride 96.6 mmol/L (98-107) L 03/17/19 05:30 Carbon Dioxide 24 mmol/L (22-30) 03/17/19 05:30 23 mmol/L 03/17/19 05:30 BUN 86 mg/dL (9-20) H 03/17/19 05:30 7.4 mg/dL (0.8-1.5) H 03/17/19 05:30 Estimated GFR 8 ml/min 03/17/19 05:30 12 % 03/17/19 05:30 Glucose 222 mg/dL (75-100) H 03/17/19 05:30 POC Glucose 246 (70-105) H 03/17/19 12:09 Lactic Acid 1.70 mmol/L (0.7-2.0) 03/10/19 23:17 Calcium 6.9 mg/dL (8.4-10.2) L 03/17/19 05:30 Magnesium 1.80 mg/dL (1.7-2.3) 03/17/19 05:30 0.50 mg/dL (0.1-1.2) 03/15/19 07:15 AST 522 units/L (5-40) H 03/15/19 07:15 ALT 474 units/L (7-56) H 03/15/19 07:15 129 units/L (35-129) 03/15/19 07:15 1156 units/L (55-170) H 03/11/19 06:07 CK-MB (CK-2) 4.6 ng/mL (0.0-4.0) H 03/11/19 06:07 CK-MB (CK-2) Rel Index 0.3 (0-4) 03/11/19 06:07 0.077 ng/mL (0.00-0.029) H 03/11/19 06:07 5.7 g/dL (6.3-8.2) L 03/15/19 07:15 2.4 g/dL (3.9-5) L 03/15/19 07:15 0.7 % 03/15/19 07:15 Triglycerides 91 mg/dL (2-149) 03/11/19 00:50 Cholesterol < 4 mg/dL (50-199) L 03/11/19 00:50 4 mg/dL (50-130) L 03/11/19 00:50 < 3 mg/dL (40-59) L 03/11/19 00:50 1.00 % 03/11/19 00:50 [place] (Yellow) 03/10/19 23:06 Cloudy (Clear) 03/10/19 23:06 5.0 (5.0-7.0) 03/10/19 23:06 Ur Specific [place] 1.016 (1.003-1.030) 03/10/19 23:06 >500 mg/dL (Negative) 03/10/19 23:06 Neg mg/dL (Negative) 03/10/19 23:06 Neg mg/dL (Negative) 03/10/19 23:06 Mod (Negative) 03/10/19 23:06 Neg (Negative) 03/10/19 23:06 Neg (Negative) 03/10/19 23:06 2.0 mg/dL (<2.0) 03/10/19 23:06 Ur Leukocyte Esterase Neg (Negative) 03/10/19 23:06 24.0 /HPF (0.0-6.0) H 03/10/19 23:06 24.0 /HPF (0.0-6.0) 03/10/19 23:06 U Epithel Cells (Auto) 4.0 /HPF (0-13.0) 03/10/19 23:06 Amorphous Crystals Few 03/10/19 23:06 Random Vancomycin 14 ug/mL (0-40.0) 03/12/19 05:06 86 mg/dL (82-185) 03/13/19 09:12 37 mg/dL (15-53) 03/13/19 09:12 C. difficile Tox (PCR) Negative (Negative) 03/11/19 Unknown Hepatitis A IgM Ab Non-reactive (NonReactive) 03/13/19 01:31 Hep Bs Antigen Non-reactive (Negative) 03/13/19 01:31 Hep B Core IgM Ab Non-reactive (NonReactive) 03/13/19 01:31 Non-reactive (NonReactive) 03/13/19 01:31 Influenza A (Rapid) Negative (Negative) 03/10/19 18:00 Influenza B (Rapid) Negative (Negative) 03/10/19 18:00 Blood Type A POSITIVE 03/17/19 13:06 Antibody Screen Negative 03/17/19 13:06 Crossmatch See Detail 03/17/19 13:06 Active Medications - Current Medications Current Medications: Generic Name Dose Route Start Last Admin Trade Name Freq PRN Reason Stop Dose Admin Acetaminophen 650 mg 03/11/19 00:40 03/17/19 16:45 Tylenol PO 650 mg Q4H PRN Administration Pain MILD(1-3)/Fever >100.5/[place] Acetaminophen 650 mg 03/11/19 00:40 03/12/19 04:53 Tylenol MT 650 mg Q4H PRN Administration Pain MILD(1-3)/Fever >100.5/[place] Albumin Human 12.5 gm 03/13/19 09:29 Alburx 25% (Albumin) IV DUEK PRN Hypotension Albuterol 2.5 mg 03/17/19 16:00 03/17/19 15:42 Proventil IH 2.5 mg Q8HRT ROXANNE Administration Lipase/Protease/Amylase 1 each 03/15/19 13:[address] 10,500 Unit FEEDTUBE PRN PRN For Clogged Feeding Tube Dextrose 50 ml 03/11/19 00:44 D50w (25gm) Syringe IV PRN PRN Hypoglycemia Fentanyl 50 mcg 03/11/19 07:50 Sublimaze IV Q10MIN PRN ANALGESIA Hydrophilic Ointment 1 applic 03/10/19 19:50 Vaseline Lip Therapy TP Q2HR PRN Dry Lips Propofol 1,000 mg in 100 mls @ 4.082 mls/hr 03/10/19 20:00 03/11/19 14:30 Diprivan 10 Mg/Ml IV Infused TITR ROXANNE Titration Protocol 5 MCG/KG/MIN Norepinephrine 4 mg in 250 mls @ 7.5 mls/hr 03/10/19 21:00 03/17/19 10:00 Levophed Drip 4 Mg/Ns 250 Ml IV 2 mcg/min TITR ROXANNE 7.5 mls/hr Titration Protocol 2 MCG/MIN Fentanyl Citrate 2,000 mcg in 100 mls @ 6.804 mls/hr 03/11/19 08:00 03/17/19 13:35 Fentanyl Drip Premix IV 0 mcg/kg/hr TITR ROXANNE 0 mls/hr Titration Protocol 1 MCG/KG/HR Ceftriaxone Sodium 2 gm in 100 mls @ 200 mls/hr 03/11/19 13:00 03/17/19 10:00 Rocephin/Ns 2 Gm/100 Ml IV 200 mls/hr Q12HR ROXANNE Administration Protocol Clindamycin HCl 900 mg in 50 mls @ 100 mls/hr 03/13/19 09:00 03/17/19 16:45 Cleocin 900 Mg/50 Ml IV 100 mls/hr Q8H ROXANNE Administration Sodium Chloride 100 mls @ 999 mls/hr 03/15/19 08:11 Nacl 0.9% IV DUKE PRN Hypotension Sodium Chloride 500 mls @ 0 mls/hr 03/17/19 11:20 Nacl 0.9% 500 Ml IV 03/17/19 23:59 ONCE NR As Directed Insulin Glargine 35 units 03/17/19 10:57 Lantus SUB-Q DAILY [facility] Insulin Human Lispro 0 unit 03/11/19 06:00 03/17/19 12:45 Humalog SUB-Q 4 unit Q6HR ROXANNE Administration Protocol Lansoprazole 30 mg 03/18/19 10:00 Prevacid Solutab FEEDTUBE QDAY [facility] Multi-Ingred Cream/Lotion/Oil/Oint 1 applic 03/10/19 19:50 Artificial Tears Ophth Oint OU Q4HR PRN Dry Eye(s) Ondansetron HCl 4 mg 03/11/19 00:40 Zofran IV Q8H PRN Nausea And Vomiting Simple Syrup 15 ml 03/15/19 13:21 Simple Syrup FEEDTUBE PRN PRN Hypoglycemia Simple Syrup 30 ml 03/15/19 13:21 Simple Syrup FEEDTUBE PRN PRN Hypoglycemia Sodium Bicarbonate 325 mg 03/15/19 13:21 Sodium Bicarbonate FEEDTUBE PRN PRN For Clogged Feeding Tube Sodium Chloride 10 ml 03/11/19 10:00 03/17/19 10:00 Sodium Chloride Flush Syringe 10 Ml IV 10 ml BID ROXANNE Administration Sodium Chloride 10 ml 03/11/19 00:40 Sodium Chloride Flush Syringe 10 Ml IV PRN PRN LINE FLUSH Nutrition/Malnutrition Assess - Dietary Evaluation Nutrition/Malnutrition Findings: Nutrition Notes Start: 03/12/19 11:38 Freq: Status: Active Protocol: Document 03/15/19 13:15 APOLINAR (Rec: 03/15/19 13:21 APOLINAR [email or web address]) Nutrition Notes Initial or Follow up Reassessment Other Pertinent Diagnosis s/p cardiac arrest, anoxic brain injury Current Diet TF - Nepro at 45ml/hr Labs/Tests BUN 47 Cr 5 BG 287 Pertinent Medications Lantus Height 5 ft 4 in Weight 147.8 kg [place] Body Weight (kg) 59.09 BMI 55.9 Subjective/Other Information Observed TF infusing at goal rate. Per RN, pt with gastric residuals ranging 190-200mL. Pt remains intubated on vent support. Had HD yesterday. Percent of energy/protein needs met: 73% energy 71% pro Burn Absent Trauma Absent #1 Nutrition Diagnosis Inadequate oral intake Diagnosis Progress(for reassessment Continues documentation) Is patient on ventilator? Yes Is Patient Ambulatory and/or Out of Bed No REE-([place]-confined to bed) 2672.304 Calculation Used for Recommendations 65-70% energy needs Additional Notes Energy needs: 3974-3726 kcal/ day Pro needs 1.2-1.4g/kg adjBW: 124-145g/day Fluid needs 1-1.5L/day Nutrition Intervention Nutrition Support: Continue Nepro at 45ml/hr with 120ml water flush q4h. Kcal 1,944 Protein (gm) 87 Carbohydrates (gm) 174 Fat (gm) 104 Fluid (mL) 785 Fiber (gm) 14 Goal #1 TF tolerance Goal #2 TF to meet nutrient needs as best possible Follow-Up By: 03/19/19 Additional Comments F/U: stable TF, water flushes, vent status
[2019-03-18] MEDS: PROVENTIL IH SCH ×3 (00:06→16:15)
[2019-03-18] MEDS: HumaLOG SUB-Q SCH ×4 (00:42→17:42)
[2019-03-18] MEDS: CLEOCIN 900 MG/50 mL 900 MG/50 ML BAG IV SCH ×3 (01:45→17:30)
--- NOTE | 2019-03-18 04:53 | XRay Report ---
CHEST 1 VIEW INDICATION / CLINICAL INFORMATION: follow up respiratory failure. COMPARISON: 03/17/2019 FINDINGS: SUPPORT DEVICES: ET tube has been advanced. The tip is now approximately 3.2 cm above the maureen. Brayan tral venous line and NG tube appear to be stable in position. HEART / MEDIASTINUM: Cardiac silhouette remains mildly enlarged. LUNGS / PLEURA: Developing mild interstitial pulmonary edema. Mild haziness is now present in the lef t lung suggesting layering pleural effusion. Right lung remains grossly clear. No pneumothorax. ADDITIONAL FINDINGS: No significant additional findings. IMPRESSION: 1. Developing mild interstitial pulmonary edema. Probable layering left pleural effusion. Signer Name: Elena Renee MD Signed: 03/18/2019 4:49 AM Workstation Name: [id number]
[2019-03-18 06:16] LABS: Hematocrit 23.4 % (35.5-45.6); Hemoglobin 8.1 gm/dl (11.8-15.2); Mean Corpuscular HGB Conc 35 % (32-34); Mean Corpuscular Volume 93 fl (84-94); Red Cell Distribution Width 17.7 % (13.2-15.2)
[2019-03-18 06:30] LABS: Platelet Count 36 K/mm3 (140-440)
--- NOTE | 2019-03-18 07:55 | Progress Note ---
Assessment and Plan Assessment and plan: Patient is a 54 yo man with a history of hypertension, DM type 2, CKD 3 and CAD s/p shents who presented to [facility] ED on 03/10/19 with SOB and cough. Dental pain with ?abscess preceded this illness. He had a PEA cardiac arrest in ED, was successfully resucitated, intubated, stated on vasopressor and admitted to ICU. He had whole body jerking in ED, ?seizure activity. * Initial CT chest wo contrast IMPRESSION: Small pericardial effusion ET in satisfactory position. Atelectasis posterior aspects of both lungs. * Initial CT abd/pelvis wo contrast IMPRESSION: Possible mild right colonic wall thickening and trace free fluid in the right paracolic gutter and pelvis may be infectious, inflammatory or ischemic in etiology. No pneumoperitoneum or focal fluid collection to suggest abscess. Mild pericholecystic edema. No calcified gallstones. If there is concern for cholecystitis, consider follow- up ultrasound and/or nuclear medicine hepatobiliary scan. Small pericardial effusion. Coronary and peripheral arterial disease. * CT head wo contrast IMPRESSION: Nonspecific findings with some indistinctness of the basal ganglia and dean-white matter differentiation which may be seen with hypoxic ischemic brain injury * TTE on 03/11/19: Technically difficult due to body habitus, mild concentric LVH, estimated EF 40-45%, abnormal LV diastolic filling c/w impaired relaxation...no pericardial effusion Cardiopulmonary Arrest: supportive care Acute encephalopathy, poa with jerking activity following NGT placement thought to be seizures ?seizure, ?diffused hypoxic ischemic brain injury: Consulted Neurology, input noted Acute Hypoxic Respiratory Failure, On mechanical ventilation >96hrs. Pulmonary following Severe Sepsis with Shock: off Vasopressors. ?Dental abscess vs Group A strep. ID following, continues on abx, No evidence of Endocarditis on TTE Multi system Organ failure, poa Acute combined heart failure, poa: Cardiology is following DM type 2 with hyperglycemia-POA: Lantus and adjust sliding scale Insulin severe Anemia- Transfuse Thrombocytopenia ?DIC secondary to underlying condition: Hold Antiplatelets Pericardial effusion: Cardiology following ARF/CKD 3 due to ATN, poa with suspected progression to ESRD: on HD, Nephrology is following Morbid obesity, bmi 55.9: Counselling when more awake Severe Protein calorie malnutrition, poa: Setup Operator consult Acute Metabolic Encephalopathy: Neurology consulted ?ischemic brain injury Diarrhea-C,DIFF RULED OUT- fecal tube in place SHOCK LIVER-HEPATIC FAILURE-improve bp and follow CAD by hx-POA Sacral Pressure ulcer, poa- Wound care consulted, input noted poor prognosis CCT 32 minutes History Interval history: Patient was seen and examined. Follow-up on current diagnosis Respiratory failure. No overnight events reported to me. Imaging, nursing note, chart, labs and old chart reviewed. Hospitalist Physical - Physical exam Narrative exam: Gen: critically ill appearing, bmi 55.9 HEENT: NCAT, EOMI, PERRL, OP Clear Neck: supple, no adenopathy, no thyromegaly, no JVD CVS/Heart: RRR, normal S1S2, pulses present bilaterally Chest/Lungs: diminished bs bilateral Symmetrical chest expansion, ok air entry bilaterally GI/Abdomen: soft, NTND, good bowel sounds, no guarding or rebound /Bladder: no suprapubic tenderness, no CVA or paraspinal tenderness Extermity/Skin: edema MSK: sedated Neuro: sedated Psych: sedated - Constitutional Vitals: Temp Pulse Resp BP Pulse Ox 99.6 F 92 H 35 H 155/42 93 03/18/19 03:32 03/18/19 07:00 03/18/19 07:00 03/18/19 07:00 03/18/19 07:00 General appearance: Present: obese Results - Labs CBC & Chem 7: 03/18/19 05:45 03/17/19 05:30 Labs: Laboratory Last Values WBC 28.3 K/mm3 (4.5-11.0) H 03/18/19 05:45 RBC 2.50 M/mm3 (3.65-5.03) L 03/18/19 05:45 Hgb 8.1 gm/dl (11.8-15.2) L 03/18/19 05:45 Hct 23.4 % (35.5-45.6) L 03/18/19 05:45 MCV 93 fl (84-94) 03/18/19 05:45 MCH 32 pg (28-32) 03/18/19 05:45 MCHC 35 % (32-34) H 03/18/19 05:45 RDW 17.7 % (13.2-15.2) H 03/18/19 05:45 Plt Count 36 K/mm3 (140-440) L 03/18/19 05:45 [place] % (Auto) Customer Order Clerk 03/18/19 05:45 Eos % (Auto) 0.4 % (0.0-4.3) 03/10/19 17:57 [place] # 0.9 K/mm3 (0.0-0.8) H 03/10/19 17:57 Eos # 0.0 K/mm3 (0.0-0.4) 03/10/19 17:57 Baso # 0.0 K/mm3 (0.0-0.1) 03/10/19 17:57 Add Manual Diff Complete 03/15/19 07:15 Total Counted 100 03/15/19 07:15 Seg Neutrophils % Customer Order Clerk 03/18/19 05:45 Seg Neuts % (Manual) 2.0 % (40.0-70.0) L 03/15/19 07:15 0 % 03/15/19 07:15 41.0 % (13.4-35.0) H 03/15/19 07:15 Reactive Lymphs % (Man) 11.0 % 03/15/19 07:15 11.0 % (0.0-7.3) H 03/15/19 07:15 0 % (0.0-4.3) 03/15/19 07:15 0 % (0.0-1.8) 03/15/19 07:15 0 % 03/15/19 07:15 0 % 03/15/19 07:15 0 % 03/15/19 07:15 35.0 % 03/15/19 07:15 Nucleated RBC % Not Reportable 03/15/19 07:15 Seg Neutrophils # 0.1 K/mm3 (1.8-7.7) L 03/10/19 17:57 Seg Neutrophils # Man 0.3 K/mm3 (1.8-7.7) L 03/15/19 07:15 Band Neutrophils # 0.0 K/mm3 03/15/19 07:15 6.6 K/mm3 (1.2-5.4) H 03/15/19 07:15 Abs React Lymphs (Man) 1.8 K/mm3 03/15/19 07:15 1.8 K/mm3 (0.0-0.8) H 03/15/19 07:15 0.0 K/mm3 (0.0-0.4) 03/15/19 07:15 0.0 K/mm3 (0.0-0.1) 03/15/19 07:15 0.0 K/mm3 03/15/19 07:15 0.0 K/mm3 03/15/19 07:15 0.0 K/mm3 03/15/19 07:15 Blast Cells # 0.5 K/mm3 03/15/19 07:15 Pathologist Review 03/10/19 17:57 WBC Morphology TNR 03/18/19 05:45 Hypersegmented Neuts Not Reportable 03/15/19 07:15 Hyposegmented Neuts Not Reportable 03/15/19 07:15 Hypogranular Neuts Not Reportable 03/15/19 07:15 Not Reportable 03/15/19 07:15 Not Reportable 03/15/19 07:15 Not Reportable 03/15/19 07:15 Not Reportable 03/15/19 07:15 Not Reportable 03/15/19 07:15 Not Reportable 03/15/19 07:15 Appears decreased 03/15/19 07:15 Not Reportable 03/15/19 07:15 Plt Clumps, EDTA Not Reportable 03/15/19 07:15 Not Reportable 03/15/19 07:15 Not Reportable 03/15/19 07:15 Not Reportable 03/15/19 07:15 Plt Morphology Comment Not Reportable 03/15/19 07:15 RBC Morphology Not Reportable 03/15/19 07:15 Dimorphic RBCs Not Reportable 03/15/19 07:15 Few 03/15/19 07:15 Few 03/15/19 07:15 Not Reportable 03/15/19 07:15 Not Reportable 03/15/19 07:15 Not Reportable 03/15/19 07:15 Not Reportable 03/15/19 07:15 Not Reportable 03/15/19 07:15 Not Reportable 03/15/19 07:15 Not Reportable 03/15/19 07:15 Not Reportable 03/15/19 07:15 Rare 03/15/19 07:15 Not Reportable 03/15/19 07:15 Not Reportable 03/15/19 07:15 Not Reportable 03/15/19 07:15 Not Reportable 03/15/19 07:15 Not Reportable 03/15/19 07:15 Not Reportable 03/15/19 07:15 Not Reportable 03/15/19 07:15 1+ 03/15/19 07:15 Acanthocytes (Spur) 1+ 03/15/19 07:15 Rouleaux Not Reportable 03/15/19 07:15 Not Reportable 03/15/19 07:15 Not Reportable 03/15/19 07:15 Not Reportable 03/15/19 07:15 Not Reportable 03/15/19 07:15 Hem Pathologist Commnt Sent to pathology 03/15/19 07:15 PT 14.4 Sec. (12.2-14.9) 03/10/19 17:57 INR 1.15 (0.87-1.13) H 03/10/19 17:57 APTT 28.8 Sec. (24.2-36.6) 03/10/19 17:57 POC ABG pH 7.569 (7.35-7.45) H 03/18/19 04:49 POC ABG pCO2 30.6 (35-45) L 03/18/19 04:49 POC ABG pO2 70 (80-105) L 03/17/19 04:08 POC ABG HCO3 28.0 (22-26 mml/L) 03/18/19 04:49 POC ABG Total CO2 29 (23-27mmol/L) 03/18/19 04:49 POC ABG O2 Sat 90 03/18/19 04:49 POC ABG Base Excess 6 ((-2) - (+3)mmol/L) 03/18/19 04:49 VBG pH 7.381 (7.320-7.420) 03/10/19 17:57 35 % 03/18/19 04:49 Sodium 140 mmol/L (137-145) 03/17/19 05:30 Potassium 3.5 mmol/L (3.6-5.0) L 03/17/19 05:30 Chloride 96.6 mmol/L (98-107) L 03/17/19 05:30 Carbon Dioxide 24 mmol/L (22-30) 03/17/19 05:30 23 mmol/L 03/17/19 05:30 BUN 86 mg/dL (9-20) H 03/17/19 05:30 7.4 mg/dL (0.8-1.5) H 03/17/19 05:30 Estimated GFR 8 ml/min 03/17/19 05:30 12 % 03/17/19 05:30 Glucose 222 mg/dL (75-100) H 03/17/19 05:30 POC Glucose 310 (70-105) H 03/18/19 05:43 Lactic Acid 1.70 mmol/L (0.7-2.0) 03/10/19 23:17 Calcium 6.9 mg/dL (8.4-10.2) L 03/17/19 05:30 Magnesium 1.80 mg/dL (1.7-2.3) 03/17/19 05:30 0.50 mg/dL (0.1-1.2) 03/15/19 07:15 AST 522 units/L (5-40) H 03/15/19 07:15 ALT 474 units/L (7-56) H 03/15/19 07:15 129 units/L (35-129) 03/15/19 07:15 1156 units/L (55-170) H 03/11/19 06:07 CK-MB (CK-2) 4.6 ng/mL (0.0-4.0) H 03/11/19 06:07 CK-MB (CK-2) Rel Index 0.3 (0-4) 03/11/19 06:07 0.077 ng/mL (0.00-0.029) H 03/11/19 06:07 5.7 g/dL (6.3-8.2) L 03/15/19 07:15 2.4 g/dL (3.9-5) L 03/15/19 07:15 0.7 % 03/15/19 07:15 Triglycerides 91 mg/dL (2-149) 03/11/19 00:50 Cholesterol < 4 mg/dL (50-199) L 03/11/19 00:50 4 mg/dL (50-130) L 03/11/19 00:50 < 3 mg/dL (40-59) L 03/11/19 00:50 1.00 % 03/11/19 00:50 Briana (Yellow) 03/10/19 23:06 Cloudy (Clear) 03/10/19 23:06 5.0 (5.0-7.0) 03/10/19 23:06 Ur Specific Vance 1.016 (1.003-1.030) 03/10/19 23:06 >500 mg/dL (Negative) 03/10/19 23:06 Neg mg/dL (Negative) 03/10/19 23:06 Neg mg/dL (Negative) 03/10/19 23:06 Mod (Negative) 03/10/19 23:06 Neg (Negative) 03/10/19 23:06 Neg (Negative) 03/10/19 23:06 2.0 mg/dL (<2.0) 03/10/19 23:06 Ur Leukocyte Esterase Neg (Negative) 03/10/19 23:06 24.0 /HPF (0.0-6.0) H 03/10/19 23:06 24.0 /HPF (0.0-6.0) 03/10/19 23:06 U Epithel Cells (Auto) 4.0 /HPF (0-13.0) 03/10/19 23:06 Amorphous Crystals Few 03/10/19 23:06 Random Vancomycin 14 ug/mL (0-40.0) 03/12/19 05:06 86 mg/dL (82-185) 03/13/19 09:12 37 mg/dL (15-53) 03/13/19 09:12 C. difficile Tox (PCR) Negative (Negative) 03/11/19 Unknown Hepatitis A IgM Ab Non-reactive (NonReactive) 03/13/19 01:31 Hep Bs Antigen Non-reactive (Negative) 03/13/19 01:31 Hep B Core IgM Ab Non-reactive (NonReactive) 03/13/19 01:31 Non-reactive (NonReactive) 03/13/19 01:31 Influenza A (Rapid) Negative (Negative) 03/10/19 18:00 Influenza B (Rapid) Negative (Negative) 03/10/19 18:00 Blood Type A POSITIVE 03/17/19 13:06 Antibody Screen Negative 03/17/19 13:06 Crossmatch See Detail 03/17/19 13:06 Active Medications - Current Medications Current Medications: Generic Name Dose Route Start Last Admin Trade Name Freq PRN Reason Stop Dose Admin Acetaminophen 650 mg 06/25/19 00:40 03/17/19 16:45 Tylenol PO 650 mg Q4H PRN Administration Pain MILD(1-3)/Fever >100.5/[place] Acetaminophen 650 mg 03/11/19 00:40 03/12/19 04:53 Tylenol [place] 650 mg Q4H PRN Administration Pain MILD(1-3)/Fever >100.5/[place] Albumin Human 12.5 gm 03/13/19 09:29 Alburx 25% (Albumin) IV DUKE PRN Hypotension Albuterol 2.5 mg 03/17/19 16:00 03/18/19 00:06 Proventil IH 2.5 mg Q8HRT ROXANNE Administration Lipase/Protease/Amylase 1 each 03/15/19 13:[address] 10,500 Unit FEEDTUBE PRN PRN For Clogged Feeding Tube Dextrose 50 ml 03/11/19 00:44 D50w (25gm) Syringe IV PRN PRN Hypoglycemia Fentanyl 50 mcg 03/11/19 07:50 Sublimaze IV Q10MIN PRN ANALGESIA Hydrophilic Ointment 1 applic 03/10/19 19:50 Vaseline Lip Therapy TP Q2HR PRN Dry Lips Propofol 1,000 mg in 100 mls @ 4.082 mls/hr 03/10/19 20:00 03/11/19 14:30 Diprivan 10 Mg/Ml IV Infused TITR ROXANNE Titration Protocol 5 MCG/KG/MIN Norepinephrine 4 mg in 250 mls @ 7.5 mls/hr 03/10/19 21:00 03/18/19 01:35 Levophed Drip 4 Mg/Ns 250 Ml IV 0 mcg/min TITR ROXANNE 0 mls/hr Titration Protocol 2 MCG/MIN Fentanyl Citrate 2,000 mcg in 100 mls @ 6.804 mls/hr 03/11/19 08:00 03/17/19 13:35 Fentanyl Drip Premix IV 0 mcg/kg/hr TITR ROXANNE 0 mls/hr Titration Protocol 1 MCG/KG/HR Ceftriaxone Sodium 2 gm in 100 mls @ 200 mls/hr 03/11/19 13:00 03/17/19 22:35 Rocephin/Ns 2 Gm/100 Ml IV 200 mls/hr Q12HR ROXANNE Administration Protocol Clindamycin HCl 900 mg in 50 mls @ 100 mls/hr 03/13/19 09:00 03/18/19 01:45 Cleocin 900 Mg/50 Ml IV 100 mls/hr Q8H ROXANNE Administration Sodium Chloride 100 mls @ 999 mls/hr 03/15/19 08:11 Nacl 0.9% IV DUKE PRN Hypotension Insulin Glargine 35 units 03/17/19 10:57 Lantus SUB-Q DAILY ROXANNE Insulin Human Lispro 0 unit 03/11/19 06:00 03/18/19 06:13 Humalog SUB-Q 8 unit Q6HR ROXANNE Administration Protocol Lansoprazole 30 mg 03/18/19 10:00 Prevacid Solutab FEEDTUBE QDAY ROXANNE Multi-Ingred Cream/Lotion/Oil/Oint 1 applic 03/10/19 19:50 Artificial Tears Ophth Oint OU Q4HR PRN Dry Eye(s) Ondansetron HCl 4 mg 03/11/19 00:40 Zofran IV Q8H PRN Nausea And Vomiting Simple Syrup 15 ml 03/15/19 13:21 Simple Syrup FEEDTUBE PRN PRN Hypoglycemia Simple Syrup 30 ml 03/15/19 13:21 Simple Syrup FEEDTUBE PRN PRN Hypoglycemia Sodium Bicarbonate 325 mg 03/15/19 13:21 Sodium Bicarbonate FEEDTUBE PRN PRN For Clogged Feeding Tube Sodium Chloride 10 ml 03/11/19 10:00 03/17/19 22:35 Sodium Chloride Flush Syringe 10 Ml IV 10 ml BID ROXANNE Administration Sodium Chloride 10 ml 03/11/19 00:40 Sodium Chloride Flush Syringe 10 Ml IV PRN PRN LINE FLUSH Nutrition/Malnutrition Assess - Dietary Evaluation Nutrition/Malnutrition Findings: Nutrition Notes Start: 03/12/19 11:38 Freq: Status: Active Protocol: Document 03/15/19 13:15 APOLINAR (Rec: 03/15/19 13:21 APOLINAR [email or web address] [email or web address]) Nutrition Notes Initial or Follow up Reassessment Other Pertinent Diagnosis s/p cardiac arrest, anoxic brain injury Current Diet TF - Nepro at 45ml/hr Labs/Tests BUN 47 Cr 5 BG 287 Pertinent Medications Lantus Height 5 ft 4 in Weight 147.8 kg [place] Body Weight (kg) 59.09 BMI 55.9 Subjective/Other Information Observed TF infusing at goal rate. Per RN, pt with gastric residuals ranging 190-200mL. Pt remains intubated on vent support. Had HD yesterday. Percent of energy/protein needs met: 73% energy 71% pro Burn Absent Trauma Absent #1 Nutrition Diagnosis Inadequate oral intake Diagnosis Progress(for reassessment Continues documentation) Is patient on ventilator? Yes Is Patient Ambulatory and/or Out of Bed No REE-([place]-confined to bed) 2672.304 Calculation Used for Recommendations 65-70% energy needs Additional Notes Energy needs: 9747-6900 kcal/ day Pro needs 1.2-1.4g/kg adjBW: 124-145g/day Fluid needs 1-1.5L/day Nutrition Intervention Nutrition Support: Continue Nepro at 45ml/hr with 120ml water flush q4h. Kcal 1,944 Protein (gm) 87 Carbohydrates (gm) 174 Fat (gm) 104 Fluid (mL) 785 Fiber (gm) 14 Goal #1 TF tolerance Goal #2 TF to meet nutrient needs as best possible Follow-Up By: 03/19/19 Additional Comments F/U: stable TF, water flushes, vent status
[2019-03-18 08:29] LABS: Basophils % (Manual) 0 % (0.0-1.8); Eosinophils % (Manual) 0 % (0.0-4.3); Total Cells Counted 100
--- NOTE | 2019-03-18 08:50 | Progress Note ---
Assessment and Plan - Patient Problems (1) Acute on chronic renal failure Current Visit: Yes Status: Acute Qualifiers: Chronic kidney disease stage: stage 3 (moderate) Plan to address problem: secondary to acute tubular necrosis in the setting of cardiac arrest, streptococcal bacteremia . Patient remains anuric. cont HD on MWF schedule along with isolated UF on TTS schedule for further volume control renal US showed no acute abnormalities. UA noted for microscopic hematuria/proteinuria, so will need to r/o GN etiologies. complement levels are normal, ANCA studies pending. Overall prognosis guarded. (2) Hyperkalemia Current Visit: Yes Status: Acute Plan to address problem: K corrected with HD, cont 2g K renal diet (3) Cardiopulmonary arrest with successful resuscitation Current Visit: Yes Status: Acute Plan to address problem: ROSC in ER about 2 doses of epinephrine. Patient is on Levothroid at this time and cardiology evaluation has been reviewed and noted. Patient also had a repeat echocardiogram done and reviewed with EF 40-45% and impaired relaxation noted. We'll follow up with further recommendations from cardiology standpoint (4) Sepsis Current Visit: Yes Status: Acute Qualifiers: Sepsis type: Streptococcus group B Qualified Code(s): A40.1 - Sepsis due to streptococcus, group B Plan to address problem: Streptococcal bacteremia noted on initial blood cultures. cont ABXs as per ID recommendations, dose meds for HD (5) Metabolic acidosis Current Visit: Yes Status: Acute Plan to address problem: corrected with HD (6) T2DM (type 2 diabetes mellitus) Current Visit: Yes Status: Acute Qualifiers: Diabetes mellitus intermodal customer service insulin use: unspecified retirement insulin use status Plan to address problem: diabetes management per primary attending. Subjective Date of service: 03/18/19 Principal diagnosis: s/p cardiac arrest; acute hypoxemic resp failure; ISMAEL; hyperkalemia, Sepsis Interval history: Pt remains intubated, comatose, BP stable off levo Objective - Vital Signs Vital signs: Vital Signs - 12hr 03/17/19 03/17/19 03/17/19 21:00 21:30 22:00 Temperature Pulse Rate 87 80 84 Pulse Rate [ Anterior Bilateral Throughout] Respiratory 34 H 31 H 32 H Rate Respiratory Rate [Anterior Bilateral Throughout] Blood Pressure 141/30 112/21 115/25 O2 Sat by Pulse 94 95 94 Oximetry 03/17/19 03/17/19 03/17/19 22:31 22:45 23:00 Temperature Pulse Rate 88 92 H 86 Pulse Rate [ Anterior Bilateral Throughout] Respiratory 34 H 34 H 34 H Rate Respiratory Rate [Anterior Bilateral Throughout] Blood Pressure 133/50 114/23 128/24 O2 Sat by Pulse 92 92 94 Oximetry 03/17/19 03/17/19 03/17/19 23:11 23:20 23:30 Temperature 98.9 F 98.8 F Pulse Rate 84 89 90 Pulse Rate [ Anterior Bilateral Throughout] Respiratory 32 H 36 H 37 H Rate Respiratory Rate [Anterior Bilateral Throughout] Blood Pressure 128/24 153/52 167/69 O2 Sat by Pulse 94 94 92 Oximetry 03/17/19 03/17/19 03/18/19 23:33 23:35 00:00 Temperature 99.0 F 99.0 F 99.0 F Pulse Rate 91 H 91 H 94 H Pulse Rate [ Anterior Bilateral Throughout] Respiratory 36 H 36 H 38 H Rate Respiratory Rate [Anterior Bilateral Throughout] Blood Pressure 156/49 156/49 164/50 O2 Sat by Pulse 93 93 92 Oximetry 03/18/19 03/18/19 03/18/19 00:05 00:06 00:07 Temperature Pulse Rate 94 H 93 H Pulse Rate [ 93 H Anterior Bilateral Throughout] Respiratory 38 H Rate Respiratory 38 H Rate [Anterior Bilateral Throughout] Blood Pressure 164/50 164/50 O2 Sat by Pulse 92 93 Oximetry 03/18/19 03/18/19 03/18/19 00:15 00:31 00:35 Temperature Pulse Rate 95 H 95 H Pulse Rate [ 95 H Anterior Bilateral Throughout] Respiratory 36 H 36 H Rate Respiratory 37 H Rate [Anterior Bilateral Throughout] Blood Pressure 168/55 168/55 O2 Sat by Pulse 92 92 Oximetry 03/18/19 03/18/19 03/18/19 01:01 01:05 01:30 Temperature Pulse Rate 95 H 95 H 94 H Pulse Rate [ Anterior Bilateral Throughout] Respiratory 40 H 40 H 38 H Rate Respiratory Rate [Anterior Bilateral Throughout] Blood Pressure 168/45 168/45 148/44 O2 Sat by Pulse 91 91 93 Oximetry 03/18/19 03/18/19 03/18/19 01:35 02:00 02:31 Temperature Pulse Rate 94 H 93 H 93 H Pulse Rate [ Anterior Bilateral Throughout] Respiratory 38 H 37 H 39 H Rate Respiratory Rate [Anterior Bilateral Throughout] Blood Pressure 148/44 133/30 129/40 O2 Sat by Pulse 93 92 93 Oximetry 03/18/19 03/18/19 03/18/19 03:00 03:30 03:32 Temperature 99.6 F Pulse Rate 94 H 94 H Pulse Rate [ Anterior Bilateral Throughout] Respiratory 42 H 41 H Rate Respiratory Rate [Anterior Bilateral Throughout] Blood Pressure 142/39 157/43 O2 Sat by Pulse 93 92 Oximetry 03/18/19 03/18/19 03/18/19 04:00 04:01 04:30 Temperature Pulse Rate 95 H 95 H 94 H Pulse Rate [ Anterior Bilateral Throughout] Respiratory 41 H 40 H Rate Respiratory Rate [Anterior Bilateral Throughout] Blood Pressure 157/43 136/46 O2 Sat by Pulse 90 88 Oximetry 03/18/19 03/18/19 03/18/19 04:38 05:00 05:30 Temperature Pulse Rate 95 H 94 H 95 H Pulse Rate [ Anterior Bilateral Throughout] Respiratory 41 H 38 H Rate Respiratory Rate [Anterior Bilateral Throughout] Blood Pressure 136/46 140/49 141/41 O2 Sat by Pulse 99 88 88 Oximetry 03/18/19 03/18/19 03/18/19 06:00 06:30 07:00 Temperature Pulse Rate 92 H 94 H 92 H Pulse Rate [ Anterior Bilateral Throughout] Respiratory 37 H 37 H 35 H Rate Respiratory Rate [Anterior Bilateral Throughout] Blood Pressure 150/38 145/36 155/42 O2 Sat by Pulse 91 91 93 Oximetry 03/18/19 03/18/19 03/18/19 07:31 08:00 08:06 Temperature 99.1 F Pulse Rate 94 H 95 H 94 H Pulse Rate [ Anterior Bilateral Throughout] Respiratory 36 H 36 H Rate Respiratory Rate [Anterior Bilateral Throughout] Blood Pressure 126/43 132/36 132/36 O2 Sat by Pulse 93 94 93 Oximetry 03/18/19 08:10 Temperature Pulse Rate Pulse Rate [ 95 H Anterior Bilateral Throughout] Respiratory Rate Respiratory 31 H Rate [Anterior Bilateral Throughout] Blood Pressure O2 Sat by Pulse Oximetry - General Appearance General appearance: well-developed, obese, intubated, comatose EENT: ATNC, mucous membranes moist Neck: no JVD Respiratory: Present: Decreased Breath Sounds Cardiology: regular, S1S2 Gastrointestinal: normoactive bowel sounds, obese Integumentary: no rash, other (2+ edema b/l LE ) Neurologic: other (intubated, comatose ) - Lab 03/18/19 05:45 03/17/19 05:30 Most recent lab results Calcium 6.9 mg/dL (8.4-10.2) L 03/17/19 05:30 Magnesium 1.80 mg/dL (1.7-2.3) 03/17/19 05:30 Medications & Allergies - Medications Allergies/Adverse Reactions: Allergies No Known Allergies Allergy (Verified 03/10/19 17:37) Home Medications: Home Medications Medication Instructions Recorded Confirmed Last Taken Type Allopurinol [Zyloprim] 300 mg PO DAILY 03/10/19 03/10/19 Unknown History Aspirin [Adult Aspirin] 81 mg PO DAILY 03/10/19 03/10/19 Unknown History Atorvastatin [Lipitor Tab] 80 mg PO DAILY 03/10/19 03/10/19 Unknown History Carvedilol [Coreg] 12.5 mg PO BID 03/10/19 03/10/19 Unknown History Clopidogrel [Plavix] 75 mg PO DAILY 03/10/19 03/10/19 Unknown History Gabapentin [Neurontin] 300 mg PO BID 03/10/19 03/10/19 Unknown History Insulin Lispro Protamin/Lispro 33 unit SQ BID 03/10/19 03/10/19 Unknown History [Humalog Mix 75-25 Vial] Lisinopril [Zestril TAB] 10 mg PO DAILY 03/10/19 03/10/19 Unknown History Pantoprazole [Protonix] 40 mg PO DAILY 03/10/19 03/10/19 Unknown History Sitagliptin Phosphate [Januvia] 50 mg PO DAILY 03/10/19 03/10/19 Unknown History Active Medications: Generic Name Dose Route Start Last Admin Trade Name Freq PRN Reason Stop Dose Admin Acetaminophen 650 mg 03/11/19 00:40 03/17/19 16:45 Tylenol PO 650 mg Q4H PRN Administration Pain MILD(1-3)/Fever >100.5/[place] Acetaminophen 650 mg 03/11/19 00:40 03/12/19 04:53 Tylenol [place] 650 mg Q4H PRN Administration Pain MILD(1-3)/Fever >100.5/[place] Albumin Human 12.5 gm 03/13/19 09:29 Alburx 25% (Albumin) IV DUKE PRN Hypotension Albuterol 2.5 mg 03/17/19 16:00 03/18/19 08:10 Proventil IH 2.5 mg Q8HRT ROXANNE Administration Lipase/Protease/Amylase 1 each 03/15/19 13:21 Pancredestinye 10,500 Unit FEEDTUBE PRN PRN For Clogged Feeding Tube Dextrose 50 ml 03/11/19 00:44 D50w (25gm) Syringe IV PRN PRN Hypoglycemia Fentanyl 50 mcg 03/11/19 07:50 Sublimaze IV Q10MIN PRN ANALGESIA Hydrophilic Ointment 1 applic 03/10/19 19:50 Vaseline Lip Therapy TP Q2HR PRN Dry Lips Propofol 1,000 mg in 100 mls @ 4.082 mls/hr 03/10/19 20:00 03/11/19 14:30 Diprivan 10 Mg/Ml IV Infused TITR ROXANNE Titration Protocol 5 MCG/KG/MIN Norepinephrine 4 mg in 250 mls @ 7.5 mls/hr 03/10/19 21:00 03/18/19 01:35 Levophed Drip 4 Mg/Ns 250 Ml IV 0 mcg/min TITR ROXANNE 0 mls/hr Titration Protocol 2 MCG/MIN Fentanyl Citrate 2,000 mcg in 100 mls @ 6.804 mls/hr 03/11/19 08:00 03/17/19 13:35 Fentanyl Drip Premix IV 0 mcg/kg/hr TITR ROXANNE 0 mls/hr Titration Protocol 1 MCG/KG/HR Ceftriaxone Sodium 2 gm in 100 mls @ 200 mls/hr 03/11/19 13:00 03/17/19 22:35 Rocephin/Ns 2 Gm/100 Ml IV 200 mls/hr Q12HR ROXANNE Administration Protocol Clindamycin HCl 900 mg in 50 mls @ 100 mls/hr 03/13/19 09:00 03/18/19 08:43 Cleocin 900 Mg/50 Ml IV 100 mls/hr Q8H ROXANNE Administration Sodium Chloride 100 mls @ 999 mls/hr 03/15/19 08:11 Nacl 0.9% IV DUKE PRN Hypotension Insulin Glargine 35 units 03/17/19 10:57 Lantus SUB-Q DAILY ROXANNE Insulin Human Lispro 0 unit 03/11/19 06:00 03/18/19 06:13 Humalog SUB-Q 8 unit Q6HR ROXANNE Administration Protocol Lansoprazole 30 mg 03/18/19 10:00 Prevacid Solutab FEEDTUBE QDAY ROXANNE Multi-Ingred Cream/Lotion/Oil/Oint 1 applic 03/10/19 19:50 Artificial Tears Ophth Oint OU Q4HR PRN Dry Eye(s) Ondansetron HCl 4 mg 03/11/19 00:40 Zofran IV Q8H PRN Nausea And Vomiting Simple Syrup 15 ml 03/15/19 13:21 Simple Syrup FEEDTUBE PRN PRN Hypoglycemia Simple Syrup 30 ml 03/15/19 13:21 Simple Syrup FEEDTUBE PRN PRN Hypoglycemia Sodium Bicarbonate 325 mg 03/15/19 13:21 Sodium Bicarbonate FEEDTUBE PRN PRN For Clogged Feeding Tube Sodium Chloride 10 ml 03/11/19 10:00 03/17/19 22:35 Sodium Chloride Flush Syringe 10 Ml IV 10 ml BID ROXANNE Administration Sodium Chloride 10 ml 03/11/19 00:40 Sodium Chloride Flush Syringe 10 Ml IV PRN PRN LINE FLUSH
[2019-03-18 08:52] LABS: Anisocytosis 1+; Ovalocytes 1+; Tear Drop Cells Few
[2019-03-18 08:54] LABS: Platelet Estimate Consistent w Auto
[2019-03-18] MEDS: PREVACID SOLUTAB FEEDTUBE SCH (10:30)
[2019-03-18] MEDS: ROCEPHIN/NS 2 GM/100 ML 2 GM/100 ML BAG IV SCH ×2 (10:30→21:29)
[2019-03-18] MEDS: SODIUM CHLORIDE FLUSH SYRINGE 10 ML IV SCH ×2 (10:30→21:29)
--- NOTE | 2019-03-18 10:51 | Progress Note ---
Assessment and Plan s/p Cardiopulmonary arrest with ROSC Acute on chronic hypoxemic respiratory failure on MVS Severe sepsis with septic shock - Streptococcal Acute on chronic renal failure (multifactorial) Acute metabolic-toxic encephalopathy Morbid obesity h/o CAD s/p 2 stents Pancytopenia- probably secondary to sepsis and underlying chronic liver disease Type 2 DM h/o Alcohol abuse disorder - Hematology consult (differential shows elevated immature blood cells) - resume fentanyl drip and titrate sedation for RASS 0 to -1 - increase Lantus Insulin to 40 units daily - increase Peep to 10 cm H2O - add low dose seroquel if agitation persists on IV sedation/analgesia - continue HD/UF for toxin and volume clearance - asked vascular team to please change location of fevoral vas-cath or change it out to a new one (discussed with ID re: persistent fevers - wean levophed for MAP > 65 mmHg - CVP's running 4-8 - continue & complete AB's per ID rec's - TTE with EF 40-45% and diastolic dysfunction - continue Lung protective strategies - continue serial CXR's and ABG's - VAP bundle addressed - Critical care bundles addressed - Daily SATs and SBTs as odalys,erated (not tolerating well) - continue supplemental oxygen to keep O2 sats 90-92% - continue bronchodilators with pulm hygiene per RT - continue accuchecks with glycemic control per SSI for target blood glucose <180mg/dL - enteral nutrition as tolerated - Agitation management - Prevention of delirium, maintenance of sleep-wake cycle - Antibiotic therapy per ID - De-escalate therapy based on microbiology/HAYDER/Cultures - Trend hematologic indices - Avoid nephrotoxic agents, adjust all antibiotics and medications for CrCL and GFR - VTE ( SCDs) and Stress ulcer prophylaxis( therapeutic PPI for now) - discontinue Womack catheter if OK with guest advisor .... re-evaluate in am & prn CONDITION: CRITICAL PROGNOSIS: GUARDED CODE STATUS: FULL CODE Discussed with ID service and with RT/RN Discussed on ICU-IDT rounds The high probability of a clinically significant, sudden or life-threatening deterioration of the [respiratory, cardiovascular, renal, neurology] system(s) required my full and direct attention, intervention and personal management. The aggregate critical care time was [32] minutes without overlap. Time includes spent on; [x] Data Review and interpretation [x] Patient assessment and monitoring of vital signs [x] Documentation [x] Medication orders and management Subjective Date of service: 03/18/19 Principal diagnosis: s/p cardiac arrest; acute hypoxemic resp failure; ISMAEL; hyperkalemia, Sepsis Interval history: Patient is seen today for: s/p cardiopulmonary arrest, acute hypoxemic respiratory failure, ISMAEL, Severe hyperkalemia, Severe sepsis Seen and examined at bedside; 24hour events reviewed; nursing and respiratory care staff consulted; no adverse overnight events reported to me; remains on MVS; AMS is persistent; agitated and tachypneic; not tolerating PSV; HD/UF about to begin; No emesis or overt aspiration; blood glucose levels still running high Objective Vital Signs - 12hr 03/17/19 03/17/19 03/17/19 23:00 23:11 23:20 Temperature 98.9 F 98.8 F Pulse Rate 86 84 89 Pulse Rate [ Anterior Bilateral Throughout] Respiratory 34 H 32 H 36 H Rate Respiratory Rate [Anterior Bilateral Throughout] Blood Pressure 128/24 128/24 153/52 O2 Sat by Pulse 94 94 94 Oximetry O2 Sat by Pulse Oximetry [ Anterior Bilateral Throughout] 03/17/19 03/17/19 03/17/19 23:30 23:33 23:35 Temperature 99.0 F 99.0 F Pulse Rate 90 91 H 91 H Pulse Rate [ Anterior Bilateral Throughout] Respiratory 37 H 36 H 36 H Rate Respiratory Rate [Anterior Bilateral Throughout] Blood Pressure 167/69 156/49 156/49 O2 Sat by Pulse 92 93 93 Oximetry O2 Sat by Pulse Oximetry [ Anterior Bilateral Throughout] 03/18/19 03/18/19 03/18/19 00:00 00:05 00:06 Temperature 99.0 F Pulse Rate 94 H 94 H Pulse Rate [ 93 H Anterior Bilateral Throughout] Respiratory 38 H 38 H Rate Respiratory 38 H Rate [Anterior Bilateral Throughout] Blood Pressure 164/50 164/50 O2 Sat by Pulse 92 92 Oximetry O2 Sat by Pulse Oximetry [ Anterior Bilateral Throughout] 03/18/19 03/18/19 03/18/19 00:07 00:15 00:31 Temperature Pulse Rate 93 H 95 H Pulse Rate [ 95 H Anterior Bilateral Throughout] Respiratory 36 H Rate Respiratory 37 H Rate [Anterior Bilateral Throughout] Blood Pressure 164/50 168/55 O2 Sat by Pulse 93 92 Oximetry O2 Sat by Pulse Oximetry [ Anterior Bilateral Throughout] 03/18/19 03/18/19 03/18/19 00:35 01:01 01:05 Temperature Pulse Rate 95 H 95 H 95 H Pulse Rate [ Anterior Bilateral Throughout] Respiratory 36 H 40 H 40 H Rate Respiratory Rate [Anterior Bilateral Throughout] Blood Pressure 168/55 168/45 168/45 O2 Sat by Pulse 92 91 91 Oximetry O2 Sat by Pulse Oximetry [ Anterior Bilateral Throughout] 03/18/19 03/18/19 03/18/19 01:30 01:35 02:00 Temperature Pulse Rate 94 H 94 H 93 H Pulse Rate [ Anterior Bilateral Throughout] Respiratory 38 H 38 H 37 H Rate Respiratory Rate [Anterior Bilateral Throughout] Blood Pressure 148/44 148/44 133/30 O2 Sat by Pulse 93 93 92 Oximetry O2 Sat by Pulse Oximetry [ Anterior Bilateral Throughout] 03/18/19 03/18/19 03/18/19 02:31 03:00 03:30 Temperature Pulse Rate 93 H 94 H 94 H Pulse Rate [ Anterior Bilateral Throughout] Respiratory 39 H 42 H 41 H Rate Respiratory Rate [Anterior Bilateral Throughout] Blood Pressure 129/40 142/39 157/43 O2 Sat by Pulse 93 93 92 Oximetry O2 Sat by Pulse Oximetry [ Anterior Bilateral Throughout] 03/18/19 03/18/19 03/18/19 03:32 04:00 04:01 Temperature 99.6 F Pulse Rate 95 H 95 H Pulse Rate [ Anterior Bilateral Throughout] Respiratory 41 H Rate Respiratory Rate [Anterior Bilateral Throughout] Blood Pressure 157/43 O2 Sat by Pulse 90 Oximetry O2 Sat by Pulse Oximetry [ Anterior Bilateral Throughout] 03/18/19 03/18/19 03/18/19 04:30 04:38 05:00 Temperature Pulse Rate 94 H 95 H 94 H Pulse Rate [ Anterior Bilateral Throughout] Respiratory 40 H 41 H Rate Respiratory Rate [Anterior Bilateral Throughout] Blood Pressure 136/46 136/46 140/49 O2 Sat by Pulse 88 99 88 Oximetry O2 Sat by Pulse Oximetry [ Anterior Bilateral Throughout] 03/18/19 03/18/19 03/18/19 05:30 06:00 06:30 Temperature Pulse Rate 95 H 92 H 94 H Pulse Rate [ Anterior Bilateral Throughout] Respiratory 38 H 37 H 37 H Rate Respiratory Rate [Anterior Bilateral Throughout] Blood Pressure 141/41 150/38 145/36 O2 Sat by Pulse 88 91 91 Oximetry O2 Sat by Pulse Oximetry [ Anterior Bilateral Throughout] 03/18/19 03/18/19 03/18/19 07:00 07:31 08:00 Temperature 99.1 F Pulse Rate 92 H 94 H 95 H Pulse Rate [ Anterior Bilateral Throughout] Respiratory 35 H 36 H 36 H Rate Respiratory Rate [Anterior Bilateral Throughout] Blood Pressure 155/42 126/43 132/36 O2 Sat by Pulse 93 93 94 Oximetry O2 Sat by Pulse Oximetry [ Anterior Bilateral Throughout] 03/18/19 03/18/19 03/18/19 08:06 08:10 08:30 Temperature Pulse Rate 94 H 92 H Pulse Rate [ 95 H Anterior Bilateral Throughout] Respiratory 26 H Rate Respiratory 31 H Rate [Anterior Bilateral Throughout] Blood Pressure 132/36 147/52 O2 Sat by Pulse 93 91 Oximetry O2 Sat by Pulse Oximetry [ Anterior Bilateral Throughout] 03/18/19 03/18/19 03/18/19 08:58 09:01 09:15 Temperature 99.1 F 99.1 F Pulse Rate 96 H 97 H Pulse Rate [ Anterior Bilateral Throughout] Respiratory 32 H 38 H Rate Respiratory Rate [Anterior Bilateral Throughout] Blood Pressure 155/43 161/53 O2 Sat by Pulse 94 Oximetry O2 Sat by Pulse 96 Oximetry [ Anterior Bilateral Throughout] 03/18/19 03/18/19 03/18/19 09:30 09:45 10:00 Temperature Pulse Rate 103 H 97 H 98 H Pulse Rate [ Anterior Bilateral Throughout] Respiratory 41 H Rate Respiratory Rate [Anterior Bilateral Throughout] Blood Pressure 168/42 165/73 150/43 O2 Sat by Pulse 94 Oximetry O2 Sat by Pulse Oximetry [ Anterior Bilateral Throughout] 03/18/19 03/18/19 03/18/19 10:01 10:15 10:30 Temperature Pulse Rate 94 H 96 H 99 H Pulse Rate [ Anterior Bilateral Throughout] Respiratory 40 H Rate Respiratory Rate [Anterior Bilateral Throughout] Blood Pressure 150/43 144/39 136/39 O2 Sat by Pulse 96 Oximetry O2 Sat by Pulse Oximetry [ Anterior Bilateral Throughout] 03/18/19 10:45 Temperature Pulse Rate 97 H Pulse Rate [ Anterior Bilateral Throughout] Respiratory Rate Respiratory Rate [Anterior Bilateral Throughout] Blood Pressure 130/35 O2 Sat by Pulse Oximetry O2 Sat by Pulse Oximetry [ Anterior Bilateral Throughout] Constitutional: appears uncomfortable, other (m,iddle aged morbidly obese CM, normocephalic with mildly increased resp effort at rest on MVS) Eyes: non-icteric ENT: oropharynx moist, other (ETT 24 cm ASHA) Neck: supple, no lymphadenopathy, no JVD, other (large neck circumference) Effort: very labored Ascultation: Bilateral: diminished breath sounds, rhonchi (bases) Percussion: Bilateral: not dull Cardiovascular: regular rate and rhythm, other (No R/M) Gastrointestinal: normoactive bowel sounds, soft, non-tender, non-distended Integumentary: normal Extremities: no cyanosis, pink and warm, pulses normal, no ischemia or petechiae Neurologic: non-focal exam (grossly), pupils equal and round, unable to assess, other (Encephalopathic) Psychiatric: other (unable to assess) CBC and BMP: 03/18/19 05:45 03/17/19 05:30 ABG, PT/INR, D-dimer: ABG POC ABG pH 7.569 (7.35-7.45) H 03/18/19 04:49 POC ABG pCO2 30.6 (35-45) L 03/18/19 04:49 POC ABG HCO3 28.0 (22-26 mml/L) 03/18/19 04:49 POC ABG Total CO2 29 (23-27mmol/L) 03/18/19 04:49 POC ABG O2 Sat 90 03/18/19 04:49 PT/INR, D-dimer PT 14.4 Sec. (12.2-14.9) 03/10/19 17:57 INR 1.15 (0.87-1.13) H 03/10/19 17:57 Abnormal lab findings: Abnormal Labs 03/10/19 03/10/19 03/10/19 17:57 17:57 17:57 WBC 1.2 L* RBC 2.46 L Hgb 7.9 L Hct 23.2 L MCV MCHC RDW 18.2 H Plt Count 47 L [place] # 0.9 H Seg Neuts % (Manual) 6.0 L Lymphocytes % (Manual) 74.0 H Monocytes % (Manual) 20.0 H Nucleated RBC % Seg Neutrophils # 0.1 L Seg Neutrophils # Man 0.1 L Lymphocytes # (Manual) 0.9 L Monocytes # (Manual) INR POC ABG pH POC ABG pCO2 POC ABG pO2 Potassium Chloride Carbon Dioxide BUN 46 H Creatinine 2.9 H Glucose 200 H POC Glucose Lactic Acid 2.50 H* Calcium 7.6 L Total Bilirubin AST ALT Total Creatine Kinase CK-MB (CK-2) Troponin T Total Protein Albumin 3.2 L Cholesterol LDL Cholesterol Direct HDL Cholesterol Urine WBC (Auto) Crossmatch 03/10/19 03/10/19 03/10/19 17:57 18:01 18:52 WBC RBC Hgb Hct MCV MCHC RDW Plt Count [place] # Seg Neuts % (Manual) Lymphocytes % (Manual) Monocytes % (Manual) Nucleated RBC % Seg Neutrophils # Seg Neutrophils # Man Lymphocytes # (Manual) Monocytes # (Manual) INR 1.15 H POC ABG pH POC ABG pCO2 POC ABG pO2 Potassium Chloride Carbon Dioxide BUN Creatinine Glucose POC Glucose 234 H Lactic Acid Calcium Total Bilirubin AST ALT Total Creatine Kinase CK-MB (CK-2) Troponin T Total Protein Albumin Cholesterol LDL Cholesterol Direct HDL Cholesterol Urine WBC (Auto) Crossmatch See Detail 03/10/19 03/10/19 03/10/19 19:16 20:56 21:32 WBC RBC Hgb Hct MCV MCHC RDW Plt Count [place] # Seg Neuts % (Manual) Lymphocytes % (Manual) Monocytes % (Manual) Nucleated RBC % Seg Neutrophils # Seg Neutrophils # Man Lymphocytes # (Manual) Monocytes # (Manual) INR POC ABG pH 7.274 L POC ABG pCO2 46.6 H POC ABG pO2 315 H Potassium Chloride Carbon Dioxide BUN Creatinine Glucose POC Glucose Lactic Acid 2.80 H* Calcium Total Bilirubin AST ALT Total Creatine Kinase CK-MB (CK-2) Troponin T Total Protein Albumin Cholesterol LDL Cholesterol Direct HDL Cholesterol Urine WBC (Auto) Crossmatch 03/10/19 03/10/19 03/11/19 23:06 23:29 00:50 WBC RBC Hgb Hct MCV MCHC RDW Plt Count [place] # Seg Neuts % (Manual) Lymphocytes % (Manual) Monocytes % (Manual) Nucleated RBC % Seg Neutrophils # Seg Neutrophils # Man Lymphocytes # (Manual) Monocytes # (Manual) INR POC ABG pH POC ABG pCO2 POC ABG pO2 Potassium Chloride Carbon Dioxide BUN Creatinine Glucose POC Glucose 237 H Lactic Acid Calcium Total Bilirubin AST ALT Total Creatine Kinase 513 H CK-MB (CK-2) Troponin T 0.075 H Total Protein Albumin Cholesterol < 4 L LDL Cholesterol Direct 4 L HDL Cholesterol < 3 L Urine WBC (Auto) 24.0 H Crossmatch 03/11/19 03/11/19 03/11/19 05:01 05:01 06:06 WBC RBC 2.29 L Hgb 7.3 L Hct 22.2 L MCV 97 H MCHC RDW 18.2 H Plt Count 40 L [place] # Seg Neuts % (Manual) 8.0 L Lymphocytes % (Manual) 67.0 H Monocytes % (Manual) 24.0 H Nucleated RBC % 5.0 H Seg Neutrophils # Seg Neutrophils # Man 0.4 L Lymphocytes # (Manual) Monocytes # (Manual) 1.2 H INR POC ABG pH POC ABG pCO2 32.8 L POC ABG pO2 Potassium 5.3 H Chloride Carbon Dioxide 19 L BUN 49 H Creatinine 3.7 H Glucose 203 H POC Glucose Lactic Acid Calcium 7.1 L Total Bilirubin AST ALT Total Creatine Kinase CK-MB (CK-2) Troponin T Total Protein Albumin Cholesterol LDL Cholesterol Direct HDL Cholesterol Urine WBC (Auto) Crossmatch 03/11/19 03/11/19 03/11/19 06:07 06:35 13:07 WBC RBC Hgb Hct MCV MCHC RDW Plt Count [place] # Seg Neuts % (Manual) Lymphocytes % (Manual) Monocytes % (Manual) Nucleated RBC % Seg Neutrophils # Seg Neutrophils # Man Lymphocytes # (Manual) Monocytes # (Manual) INR POC ABG pH POC ABG pCO2 POC ABG pO2 Potassium Chloride Carbon Dioxide BUN Creatinine Glucose POC Glucose 209 H 185 H Lactic Acid Calcium Total Bilirubin AST ALT Total Creatine Kinase 1156 H CK-MB (CK-2) 4.6 H Troponin T 0.077 H Total Protein Albumin Cholesterol LDL Cholesterol Direct HDL Cholesterol Urine WBC (Auto) Crossmatch 03/11/19 03/11/19 03/12/19 18:36 23:45 04:25 WBC RBC Hgb Hct MCV MCHC RDW Plt Count [place] # Seg Neuts % (Manual) Lymphocytes % (Manual) Monocytes % (Manual) Nucleated RBC % Seg Neutrophils # Seg Neutrophils # Man Lymphocytes # (Manual) Monocytes # (Manual) INR POC ABG pH 7.320 L POC ABG pCO2 POC ABG pO2 Potassium Chloride Carbon Dioxide BUN Creatinine Glucose POC Glucose 126 H 137 H Lactic Acid Calcium Total Bilirubin AST ALT Total Creatine Kinase CK-MB (CK-2) Troponin T Total Protein Albumin Cholesterol LDL Cholesterol Direct HDL Cholesterol Urine WBC (Auto) Crossmatch 03/12/19 03/12/19 03/12/19 05:06 05:06 05:57 WBC RBC 2.24 L Hgb 7.2 L Hct 21.9 L MCV 98 H MCHC RDW 18.3 H Plt Count 38 L [place] # Seg Neuts % (Manual) 4.0 L Lymphocytes % (Manual) Monocytes % (Manual) 69.0 H Nucleated RBC % Seg Neutrophils # Seg Neutrophils # Man 0.3 L Lymphocytes # (Manual) Monocytes # (Manual) 4.9 H INR POC ABG pH POC ABG pCO2 POC ABG pO2 Potassium 6.6 H* D Chloride Carbon Dioxide 17 L BUN 66 H Creatinine 5.6 H D Glucose 149 H POC Glucose 165 H Lactic Acid Calcium 6.5 L Total Bilirubin 1.90 H AST 782 H ALT 382 H Total Creatine Kinase CK-MB (CK-2) Troponin T Total Protein 5.7 L Albumin 2.7 L Cholesterol LDL Cholesterol Direct HDL Cholesterol Urine WBC (Auto) Crossmatch 03/12/19 03/12/19 03/12/19 07:19 15:24 18:55 WBC RBC Hgb Hct MCV MCHC RDW Plt Count [place] # Seg Neuts % (Manual) Lymphocytes % (Manual) Monocytes % (Manual) Nucleated RBC % Seg Neutrophils # Seg Neutrophils # Man Lymphocytes # (Manual) Monocytes # (Manual) INR POC ABG pH POC ABG pCO2 POC ABG pO2 Potassium 6.6 H* Chloride Carbon Dioxide BUN Creatinine Glucose POC Glucose 167 H 212 H Lactic Acid Calcium Total Bilirubin AST ALT Total Creatine Kinase CK-MB (CK-2) Troponin T Total Protein Albumin Cholesterol LDL Cholesterol Direct HDL Cholesterol Urine WBC (Auto) Crossmatch 03/12/19 03/13/19 03/13/19 23:45 05:37 09:11 WBC RBC Hgb Hct MCV MCHC RDW Plt Count [place] # Seg Neuts % (Manual) Lymphocytes % (Manual) Monocytes % (Manual) Nucleated RBC % Seg Neutrophils # Seg Neutrophils # Man Lymphocytes # (Manual) Monocytes # (Manual) INR POC ABG pH POC ABG pCO2 POC ABG pO2 Potassium Chloride Carbon Dioxide BUN 52 H Creatinine 5.5 H Glucose 235 H POC Glucose 197 H 250 H Lactic Acid Calcium 6.2 L Total Bilirubin AST ALT Total Creatine Kinase CK-MB (CK-2) Troponin T Total Protein Albumin Cholesterol LDL Cholesterol Direct HDL Cholesterol Urine WBC (Auto) Crossmatch 03/13/19 03/13/19 03/13/19 09:11 11:06 12:38 WBC RBC 1.99 L 2.07 L Hgb 6.4 L 6.6 L Hct 18.7 L* 19.6 L* MCV 95 H MCHC RDW 18.5 H 18.5 H Plt Count 36 L 33 L [place] # Seg Neuts % (Manual) Lymphocytes % (Manual) Monocytes % (Manual) Nucleated RBC % Seg Neutrophils # Seg Neutrophils # Man Lymphocytes # (Manual) Monocytes # (Manual) INR POC ABG pH POC ABG pCO2 POC ABG pO2 Potassium Chloride Carbon Dioxide BUN Creatinine Glucose POC Glucose 268 H Lactic Acid Calcium Total Bilirubin AST ALT Total Creatine Kinase CK-MB (CK-2) Troponin T Total Protein Albumin Cholesterol LDL Cholesterol Direct HDL Cholesterol Urine WBC (Auto) Crossmatch 03/13/19 03/13/19 03/13/19 18:11 19:12 20:58 WBC RBC Hgb Hct MCV MCHC RDW Plt Count [place] # Seg Neuts % (Manual) Lymphocytes % (Manual) Monocytes % (Manual) Nucleated RBC % Seg Neutrophils # Seg Neutrophils # Man Lymphocytes # (Manual) Monocytes # (Manual) INR POC ABG pH 7.466 H POC ABG pCO2 POC ABG pO2 Potassium Chloride Carbon Dioxide BUN Creatinine Glucose POC Glucose 255 H Lactic Acid Calcium Total Bilirubin AST ALT Total Creatine Kinase CK-MB (CK-2) Troponin T Total Protein Albumin Cholesterol LDL Cholesterol Direct HDL Cholesterol Urine WBC (Auto) Crossmatch See Detail 03/13/19 03/14/19 03/14/19 23:49 05:51 11:39 WBC RBC Hgb Hct MCV MCHC RDW Plt Count [place] # Seg Neuts % (Manual) Lymphocytes % (Manual) Monocytes % (Manual) Nucleated RBC % Seg Neutrophils # Seg Neutrophils # Man Lymphocytes # (Manual) Monocytes # (Manual) INR POC ABG pH POC ABG pCO2 POC ABG pO2 Potassium Chloride Carbon Dioxide BUN Creatinine Glucose POC Glucose 289 H 305 H 283 H Lactic Acid Calcium Total Bilirubin AST ALT Total Creatine Kinase CK-MB (CK-2) Troponin T Total Protein Albumin Cholesterol LDL Cholesterol Direct HDL Cholesterol Urine WBC (Auto) Crossmatch 03/14/19 03/14/19 03/15/19 13:43 18:12 00:43 WBC 14.0 H RBC 2.78 L Hgb 8.9 L Hct 26.0 L D MCV MCHC RDW 17.9 H Plt Count 42 L [place] # Seg Neuts % (Manual) 2.0 L Lymphocytes % (Manual) 84.0 H Monocytes % (Manual) 13.0 H Nucleated RBC % Seg Neutrophils # Seg Neutrophils # Man 0.3 L Lymphocytes # (Manual) 11.8 H Monocytes # (Manual) 1.8 H INR POC ABG pH POC ABG pCO2 POC ABG pO2 Potassium Chloride Carbon Dioxide BUN Creatinine Glucose POC Glucose 313 H 236 H Lactic Acid Calcium Total Bilirubin AST ALT Total Creatine Kinase CK-MB (CK-2) Troponin T Total Protein Albumin Cholesterol LDL Cholesterol Direct HDL Cholesterol Urine WBC (Auto) Crossmatch 03/15/19 03/15/19 03/15/19 04:24 07:15 07:15 WBC 16.1 H RBC 2.50 L Hgb 8.1 L Hct 23.4 L MCV MCHC 35 H RDW 18.5 H Plt Count 42 L [place] # Seg Neuts % (Manual) 2.0 L Lymphocytes % (Manual) 41.0 H Monocytes % (Manual) 11.0 H Nucleated RBC % Seg Neutrophils # Seg Neutrophils # Man 0.3 L Lymphocytes # (Manual) 6.6 H Monocytes # (Manual) 1.8 H INR POC ABG pH 7.497 H POC ABG pCO2 34.0 L POC ABG pO2 Potassium Chloride 96.0 L Carbon Dioxide BUN 47 H Creatinine 5.0 H Glucose 287 H POC Glucose Lactic Acid Calcium 7.2 L D Total Bilirubin AST 522 H ALT 474 H Total Creatine Kinase CK-MB (CK-2) Troponin T Total Protein 5.7 L Albumin 2.4 L Cholesterol LDL Cholesterol Direct HDL Cholesterol Urine WBC (Auto) Crossmatch 03/15/19 03/15/19 03/15/19 07:24 11:18 17:12 WBC RBC Hgb Hct MCV MCHC RDW Plt Count [place] # Seg Neuts % (Manual) Lymphocytes % (Manual) Monocytes % (Manual) Nucleated RBC % Seg Neutrophils # Seg Neutrophils # Man Lymphocytes # (Manual) Monocytes # (Manual) INR POC ABG pH POC ABG pCO2 POC ABG pO2 Potassium Chloride Carbon Dioxide BUN Creatinine Glucose POC Glucose 285 H 287 H 221 H Lactic Acid Calcium Total Bilirubin AST ALT Total Creatine Kinase CK-MB (CK-2) Troponin T Total Protein Albumin Cholesterol LDL Cholesterol Direct HDL Cholesterol Urine WBC (Auto) Crossmatch 03/15/19 03/16/19 03/16/19 23:19 03:49 05:26 WBC RBC Hgb Hct MCV MCHC RDW Plt Count [place] # Seg Neuts % (Manual) Lymphocytes % (Manual) Monocytes % (Manual) Nucleated RBC % Seg Neutrophils # Seg Neutrophils # Man Lymphocytes # (Manual) Monocytes # (Manual) INR POC ABG pH 7.487 H POC ABG pCO2 34.3 L POC ABG pO2 254 H Potassium Chloride Carbon Dioxide BUN Creatinine Glucose POC Glucose 297 H 271 H Lactic Acid Calcium Total Bilirubin AST ALT Total Creatine Kinase CK-MB (CK-2) Troponin T Total Protein Albumin Cholesterol LDL Cholesterol Direct HDL Cholesterol Urine WBC (Auto) Crossmatch 03/16/19 03/16/19 03/16/19 11:26 17:55 23:47 WBC RBC Hgb Hct MCV MCHC RDW Plt Count [place] # Seg Neuts % (Manual) Lymphocytes % (Manual) Monocytes % (Manual) Nucleated RBC % Seg Neutrophils # Seg Neutrophils # Man Lymphocytes # (Manual) Monocytes # (Manual) INR POC ABG pH POC ABG pCO2 POC ABG pO2 Potassium Chloride Carbon Dioxide BUN Creatinine Glucose POC Glucose 298 H 304 H 260 H Lactic Acid Calcium Total Bilirubin AST ALT Total Creatine Kinase CK-MB (CK-2) Troponin T Total Protein Albumin Cholesterol LDL Cholesterol Direct HDL Cholesterol Urine WBC (Auto) Crossmatch 03/17/19 03/17/19 03/17/19 04:08 05:30 05:30 WBC 18.8 H RBC 2.13 L Hgb 6.9 L Hct 20.0 L MCV MCHC 35 H RDW 18.4 H Plt Count 34 L [place] # Seg Neuts % (Manual) Lymphocytes % (Manual) Monocytes % (Manual) Nucleated RBC % Seg Neutrophils # Seg Neutrophils # Man Lymphocytes # (Manual) Monocytes # (Manual) INR POC ABG pH 7.491 H POC ABG pCO2 31.1 L POC ABG pO2 70 L Potassium 3.5 L Chloride 96.6 L Carbon Dioxide BUN 86 H Creatinine 7.4 H Glucose 222 H POC Glucose Lactic Acid Calcium 6.9 L Total Bilirubin AST ALT Total Creatine Kinase CK-MB (CK-2) Troponin T Total Protein Albumin Cholesterol LDL Cholesterol Direct HDL Cholesterol Urine WBC (Auto) Crossmatch 03/17/19 03/17/19 03/17/19 05:55 12:09 13:06 WBC RBC Hgb Hct MCV MCHC RDW Plt Count [place] # Seg Neuts % (Manual) Lymphocytes % (Manual) Monocytes % (Manual) Nucleated RBC % Seg Neutrophils # Seg Neutrophils # Man Lymphocytes # (Manual) Monocytes # (Manual) INR POC ABG pH POC ABG pCO2 POC ABG pO2 Potassium Chloride Carbon Dioxide BUN Creatinine Glucose POC Glucose 218 H 246 H Lactic Acid Calcium Total Bilirubin AST ALT Total Creatine Kinase CK-MB (CK-2) Troponin T Total Protein Albumin Cholesterol LDL Cholesterol Direct HDL Cholesterol Urine WBC (Auto) Crossmatch See Detail 03/17/19 03/18/19 03/18/19 17:37 00:06 04:49 WBC RBC Hgb Hct MCV MCHC RDW Plt Count [place] # Seg Neuts % (Manual) Lymphocytes % (Manual) Monocytes % (Manual) Nucleated RBC % Seg Neutrophils # Seg Neutrophils # Man Lymphocytes # (Manual) Monocytes # (Manual) INR POC ABG pH 7.569 H POC ABG pCO2 30.6 L POC ABG pO2 Potassium Chloride Carbon Dioxide BUN Creatinine Glucose POC Glucose 253 H 233 H Lactic Acid Calcium Total Bilirubin AST ALT Total Creatine Kinase CK-MB (CK-2) Troponin T Total Protein Albumin Cholesterol LDL Cholesterol Direct HDL Cholesterol Urine WBC (Auto) Crossmatch 03/18/19 03/18/19 05:43 05:45 WBC 28.3 H RBC 2.50 L Hgb 8.1 L Hct 23.4 L MCV MCHC 35 H RDW 17.7 H Plt Count 36 L [place] # Seg Neuts % (Manual) 0 L Lymphocytes % (Manual) 4.0 L Monocytes % (Manual) Nucleated RBC % 1.0 H Seg Neutrophils # Seg Neutrophils # Man 0.0 L Lymphocytes # (Manual) 1.1 L Monocytes # (Manual) 1.4 H INR POC ABG pH POC ABG pCO2 POC ABG pO2 Potassium Chloride Carbon Dioxide BUN Creatinine Glucose POC Glucose 310 H Lactic Acid Calcium Total Bilirubin AST ALT Total Creatine Kinase CK-MB (CK-2) Troponin T Total Protein Albumin Cholesterol LDL Cholesterol Direct HDL Cholesterol Urine WBC (Auto) Crossmatch Chest x-ray: image reviewed (rotated but shows mild interstitial edema pattern; ETT in good position) Allied health notes reviewed: nursing
[2019-03-18] MEDS: SUBLIMAZE IV PRN (11:44)
--- NOTE | 2019-03-18 13:01 | Progress Note ---
Assessment and Plan Cultures: Blood culture 03/10/2019 Group-A Strep 2 of 4 bottles Tracheal asp 03/10/2019 poor specimen Blood culture 03/12/2019 no growth today C diff negative 03/14/2019 trach aspirate culture: no growth in 24 hours Assessment: 54 y/o male with history of diabetes, hypertension, chronic kidney disease, coronary artery disease admitted on 03/10/2019 due to a week history of facial/mouth pain (?dental pain) associated with generalized weakness, cold sensation, cough with sputum production and body aches, 48 hour-history of sore throat, in the ED patient went into PEA arrest s/p CPR: 1) Severe Sepsis with PEA arrest and transient shock post arrest: Etiology li priyanka due to GAS bacteremia. CXR and CT chest no consolidations. 2) Invasive Group-A Strep bacteremia/toxic shock syndrome: source unclear ?tonsillopharingitis, ?dental abscess, ?early aspiration pneumonia. Blood culture 03/10/2019 Group-A Strep [address] face showed a small right mandibular premolar abscess, poor dentition and chronic sinusitis. TTE no vegetations. 3) Acute encephalopathy: not better; post arrest +/- due to infection ? ischemic brain injury. CT head some indistinctness and loss of dean-white matter differentiation and indistinct visualization of the basal ganglia. This is nonspecific finding but may be seen with diffuse hypoxic ischemic brain injury. 4) Acute respiratory failure: intubated. CT chest without contrast shows pericardial effusion measuring up to 1.4 cm in transverse diameter, posterior atelectasis both lungs. Minimal pleural fluid collection. 5) Peripheral blasts seen on differential today, also has thrombocytopenia: ?concern for AML. Discussed with Dr Horowitz, recommend hematology consult 6) ISMAEL on CKD: renally adjusted meds. Now on HD had a fem vas cath 7) Elevated LFTs: probably from shock and sepsis, but need to monitor. Recommendations: - continue clindamycin 900 mg IV q8h and continue ceftriaxone for Group-A Strep bacteremia/toxic shock syndrome - urgent hematology oncology consult given findings of 90% peripheral blasts on CBC with differential - recheck CMP tomorrow - Overall, guarded prognosis D/W Dr. Guidry, he notified Dr. Cleaning. MD [facility] C: [phone] O: [phone] F: [phone] Subjective Date of service: 03/18/19 Principal diagnosis: s/p cardiac arrest; acute hypoxemic resp failure; ISMAEL; hyperkalemia, Sepsis Interval history: Low grade fever. Went back briefly on pressors last night. Just completed HD. Otherwise remains on the vent. Neurostatus unchanged, doesn't track. Objective - Exam Narrative Exam: Physical Exam: Constitutional: intubated. Obese Head, Ears, Nose: Normocephalic, atraumatic. External ears, nose normal Eyes: Conjunctivae/corneas clear. No icterus. No ptosis. Neck: intubated Oral: intubated Cardiovascular: S1, S2 normal. Respiratory: Good air entry, clear to auscultation bilaterally GI: Soft, non-tender; bowel sounds normal. No peritoneal signs Musculoskeletal: 1+ pedal edema. Obese Skin: No rash or abscess. Superficial wounds on sacral region Hem/Lymphatic: No palpable cervical or supraclavicular nodes. No lymphangitis Psych: no agitation Neurological: intubated, on vent Lines: R femoral HD cath - Constitutional Vitals: Vital Signs Temp Pulse Resp BP Pulse Ox 99.4 F 96 H 40 H 123/26 92 03/18/19 12:00 03/18/19 12:01 03/18/19 12:00 03/18/19 12:01 03/18/19 12:00 Temperature -Last 24 Hours Temperature 99.4 F Temperature 99.1 F Temperature 99.1 F Temperature 99.1 F Temperature 99.6 F Temperature 99.0 F Temperature 99.0 F Temperature 99.0 F Temperature 98.8 F Temperature 98.9 F Temperature 98.5 F Temperature 98.8 F Temperature 100.5 F - Labs CBC & Chem 7: 03/18/19 05:45 03/17/19 05:30 Labs: Abnormal lab results 03/13/19 03/17/19 03/17/19 Range/Units 19:12 13:06 17:37 WBC (4.5-11.0) K/mm3 RBC (3.65-5.03) M/mm3 Hgb (11.8-15.2) gm/dl Hct (35.5-45.6) % MCHC (32-34) % RDW (13.2-15.2) % Plt Count (140-440) K/mm3 Seg Neuts % (Manual) (40.0-70.0) % Lymphocytes % (Manual) (13.4-35.0) % Nucleated RBC % (0.0-0.9) % Seg Neutrophils # Man (1.8-7.7) K/mm3 Lymphocytes # (Manual) (1.2-5.4) K/mm3 Monocytes # (Manual) (0.0-0.8) K/mm3 POC ABG pH (7.35-7.45) POC ABG pCO2 (35-45) POC Glucose 253 H (70-105) Crossmatch See Detail See Detail 03/18/19 03/18/19 03/18/19 Range/Units 00:06 04:49 05:43 WBC (4.5-11.0) K/mm3 RBC (3.65-5.03) M/mm3 Hgb (11.8-15.2) gm/dl Hct (35.5-45.6) % MCHC (32-34) % RDW (13.2-15.2) % Plt Count (140-440) K/mm3 Seg Neuts % (Manual) (40.0-70.0) % Lymphocytes % (Manual) (13.4-35.0) % Nucleated RBC % (0.0-0.9) % Seg Neutrophils # Man (1.8-7.7) K/mm3 Lymphocytes # (Manual) (1.2-5.4) K/mm3 Monocytes # (Manual) (0.0-0.8) K/mm3 POC ABG pH 7.569 H (7.35-7.45) POC ABG pCO2 30.6 L (35-45) POC Glucose 233 H 310 H (70-105) Crossmatch 03/18/19 03/18/19 Range/Units 05:45 12:09 WBC 28.3 H (4.5-11.0) K/mm3 RBC 2.50 L (3.65-5.03) M/mm3 Hgb 8.1 L (11.8-15.2) gm/dl Hct 23.4 L (35.5-45.6) % MCHC 35 H (32-34) % RDW 17.7 H (13.2-15.2) % Plt Count 36 L (140-440) K/mm3 Seg Neuts % (Manual) 0 L (40.0-70.0) % Lymphocytes % (Manual) 4.0 L (13.4-35.0) % Nucleated RBC % 1.0 H (0.0-0.9) % Seg Neutrophils # Man 0.0 L (1.8-7.7) K/mm3 Lymphocytes # (Manual) 1.1 L (1.2-5.4) K/mm3 Monocytes # (Manual) 1.4 H (0.0-0.8) K/mm3 POC ABG pH (7.35-7.45) POC ABG pCO2 (35-45) POC Glucose 258 H (70-105) Crossmatch - Imaging and cardiology Chest x-ray: report reviewed, image reviewed (b/l airspace disease, ETT +)
[2019-03-18] MEDS: fentaNYL DRIP Premix 2,000 MCG/100 ML BAG IV SCH ×2 (13:14→23:25)
--- NOTE | 2019-03-18 14:54 | Event Note ---
Date: 03/18/19 Vascath day #7 and no overt signs of infection. Patient's positive blood cultures were prior to placement of this Vascath and have been negative since the placement. The patient's platelet count is 36,000 and is at high risk of persistent bleeding with removal of the vascath, at he had bleeding and required a pressure dressing with insertion of the vascath. Would not recommend removing unless absolutely necessary. Would also consider left internal jugular triple lumen as a source of possible infection.
[2019-03-18 17:53] LABS: Myeloperoxidase Antibody <1.0 AI (<1.0)
[2019-03-18] MEDS: LEVOPHED DRIP 4 MG/NS 250 ML 4 MG/250 ML BAG IV SCH ×2 (18:09→21:24)
--- NOTE | 2019-03-18 18:37 | Event Note ---
Date: 03/18/19 [id number]
[2019-03-19] MEDS: PROVENTIL IH SCH ×5 (00:17→23:04)
[2019-03-19] MEDS: HumaLOG SUB-Q SCH ×4 (00:45→18:20)
[2019-03-19] MEDS: CLEOCIN 900 MG/50 mL 900 MG/50 ML BAG IV SCH ×2 (00:55→09:29)
--- NOTE | 2019-03-19 02:08 | Consultation ---
REFERRED BY: . REASON FOR CONSULTATION: Smear mentioning 90% blasts. HISTORY OF PRESENT ILLNESS: I saw the patient is a 54-year-old male in the medical floor. The patient's daughter was present in the room. As per the information available, he was well up to a month and a half ago when he started complaining of abdominal pain. As per the daughter, he had spoken to her a few days prior to admission complaining of not feeling well. He was brought to the hospital because of generalized body ache and shortness of breath. He has a history of hypertension, diabetes, CKD, coronary artery disease. He has been unwell for a month and half, also having chills, diarrhea, decreased oral intake. As per information, a chest x-ray was ordered in the ER. By the time cath laboratory technician came back, the patient was not breathing. He was successfully resuscitated and started on antibiotics. The patient has had prolonged hospitalization. The patient has been seen by Pulmonary team, Cardiology team, Infectious Disease, Nephrology and Neurology team. At admission, the patient had anemia and low platelets and low white cell count. He has received transfusion support. White cell count is now high. Smear mentions a 90% blast. I have been asked to evaluate the patient for this. REVIEW OF SYSTEMS: The patient is on vent, opens eyes, but not responding to commands. The patient is being treated for sepsis, encephalopathy, question of ischemic brain, pericardial effusion, renal impairment, abnormal LFTs. PAST MEDICAL HISTORY: As above. ALLERGIES: None. FAMILY HISTORY: Hypertension. PAST SURGICAL HISTORY: None. SOCIAL HISTORY: Quit alcohol a few months ago. No history of drug or tobacco usage. HOME MEDICATIONS: Included allopurinol, aspirin, atorvastatin, Plavix, Coreg, insulin, Januvia. PHYSICAL EXAMINATION: VITAL SIGNS: At this time, temperature 98.7, pulse 93, respirations 30, BP 115/28. HEENT: Pallor present, no icterus. NECK: No neck lymph nodes, intubated. HEART: S1, S2. LUNGS: Decreased air entry. ABDOMEN: Soft. EXTREMITIES: Pedal edema. NEUROLOGIC: Not responding to commands. LABORATORY DATA: White cells 28, hemoglobin 8, MCV 93, platelets 36, nucleated RBC 1, mention of 90% blasts. At admission, white cell count was 1.2 and has slowly risen. Admission platelet count was 47 and has slowly fallen. Admission hemoglobin was 7.9, it was as low as 6.4 and then he received transfusion support. ASSESSMENT: 1. Anemia, leukopenia, thrombocytopenia. Peripheral smear mentions blasts. I discussed with . He said the presentation is very peculiar. We will send for a flow cytometry as this could be acute neoplastic process. 2. CK is elevated, we will do LDH. We will do uric acid. As per the information available; 1. History of diabetes. 2. History of hypertension. 3. Coronary artery disease. 4. History of dental pain recently. 5. The patient had a cardiac arrest, status post cardiopulmonary resuscitation. 6. The patient is intubated. 7. Pericardial effusion. 8. Neurology note mentions . We will the patient during inpatient stay. We will await for flow cytometry result. JOB# [id number] NM/NTS
--- NOTE | 2019-03-19 04:11 | XRay Report ---
CHEST 1 VIEW INDICATION / CLINICAL INFORMATION: follow up respiratory failure. COMPARISON: 03/18/2019 FINDINGS: SUPPORT DEVICES: ET tube, CVL, and NG tube remain in stable and satisfactory position HEART / MEDIASTINUM: Cardiac silhouette size remains mildly enlarged. LUNGS / PLEURA: Previously noted interstitial pulmonary edema persists but does appear to be slightly improved. Left basilar pleural-parenchymal disease may be slightly improved as well. No pneumothorax . ADDITIONAL FINDINGS: No significant additional findings. IMPRESSION: 1. Slight improvement in the appearance of the chest radiograph. Signer Name: Elena Renee MD Signed: 03/19/2019 4:07 AM Workstation Name: [id number]
[2019-03-19] MEDS: LEVOPHED DRIP 4 MG/NS 250 ML 4 MG/250 ML BAG IV SCH ×4 (04:16→21:33)
--- NOTE | 2019-03-19 05:57 | Progress Note ---
Assessment and Plan s/p Cardiopulmonary arrest with ROSC Acute on chronic hypoxemic respiratory failure on MVS Severe sepsis with septic shock - Streptococcal Acute on chronic renal failure (multifactorial) Acute metabolic-toxic encephalopathy Morbid obesity h/o CAD s/p 2 stents Pancytopenia- probably secondary to sepsis and underlying chronic liver disease Type 2 DM h/o Alcohol abuse disorder (I have expressed to his daughter that AMS is rate limiting step to safe extubation and a trach & PEG will likely be needed if remains persistent) - Add midodrine for BP support - Hematology evaluation ongoing (? Flow cytometry) - continue fentanyl drip and titrate sedation for RASS 0 to -1 - increased Lantus Insulin to 40 units daily - increased Peep to 10 cm H2O - continue HD/UF for toxin and volume clearance - asked vascular team to please change location of fevoral vas-cath or change it out to a new one (discussed with ID re: persistent fevers - wean levophed for MAP > 65 mmHg - continue & complete AB's per ID rec's - TTE with EF 40-45% and diastolic dysfunction - continue Lung protective strategies - continue serial CXR's and ABG's - VAP bundle addressed - Critical care bundles addressed - Daily SATs and SBTs as odalys,erated (not tolerating well) - continue supplemental oxygen to keep O2 sats 90-92% - continue bronchodilators with pulm hygiene per RT - continue accuchecks with glycemic control per SSI for target blood glucose <180mg/dL - enteral nutrition as tolerated - Agitation management - Prevention of delirium, maintenance of sleep-wake cycle - Antibiotic therapy per ID - De-escalate therapy based on microbiology/HAYDER/Cultures - Trend hematologic indices - Avoid nephrotoxic agents, adjust all antibiotics and medications for CrCL and GFR - VTE ( SCDs) and Stress ulcer prophylaxis( therapeutic PPI for now) - discontinue Womack catheter 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 re-evaluate in am & prn CONDITION: CRITICAL PROGNOSIS: GUARDED CODE STATUS: FULL CODE Discussed with ID service and with RT/RN Discussed on ICU-IDT rounds The high probability of a clinically significant, sudden or life-threatening deterioration of the [respiratory, cardiovascular, renal, neurology] system(s) required my full and direct attention, intervention and personal management. The aggregate critical care time was [36] minutes without overlap. Time includes spent on; [x] Data Review and interpretation [x] Patient assessment and monitoring of vital signs [x] Documentation [x] Medication orders and management Subjective Date of service: 03/19/19 Principal diagnosis: s/p cardiac arrest; acute hypoxemic resp failure; ISMAEL; hyperkalemia, Sepsis Interval history: Patient is seen today for: s/p cardiopulmonary arrest, acute hypoxemic respiratory failure, ISMAEL, Severe hyperkalemia, Severe sepsis Seen and examined at bedside; 24hour events reviewed; nursing and respiratory care staff consulted; no adverse overnight events reported to me; remains on MVS; AMS is persistent; needing levophed for BP support; hematology evaluation ongoing but concerning for blood malignancy Objective Vital Signs - 12hr 03/18/19 03/18/19 03/18/19 18:00 18:30 19:00 Temperature Pulse Rate 94 H 84 82 Pulse Rate [ Anterior Bilateral Throughout] Respiratory 30 H 24 22 Rate Respiratory Rate [Anterior Bilateral Throughout] Blood Pressure 125/41 114/27 129/30 O2 Sat by Pulse 95 96 96 Oximetry 03/18/19 03/18/19 03/18/19 19:06 19:30 20:00 Temperature 98.3 F Pulse Rate 81 82 80 Pulse Rate [ Anterior Bilateral Throughout] Respiratory 21 21 Rate Respiratory Rate [Anterior Bilateral Throughout] Blood Pressure 129/30 133/41 110/30 O2 Sat by Pulse 95 95 95 Oximetry 03/18/19 03/18/19 03/18/19 20:30 21:00 21:30 Temperature Pulse Rate 78 79 81 Pulse Rate [ Anterior Bilateral Throughout] Respiratory 20 20 21 Rate Respiratory Rate [Anterior Bilateral Throughout] Blood Pressure 103/41 104/35 123/50 O2 Sat by Pulse 95 94 87 Oximetry 03/18/19 03/18/19 03/18/19 21:45 22:00 22:30 Temperature Pulse Rate 81 81 84 Pulse Rate [ Anterior Bilateral Throughout] Respiratory 21 21 23 Rate Respiratory Rate [Anterior Bilateral Throughout] Blood Pressure 123/50 150/60 150/60 O2 Sat by Pulse 95 92 90 Oximetry 03/18/19 03/18/19 03/19/19 23:00 23:30 00:00 Temperature 99.1 F Pulse Rate 85 89 88 Pulse Rate [ Anterior Bilateral Throughout] Respiratory 23 22 23 Rate Respiratory Rate [Anterior Bilateral Throughout] Blood Pressure 119/46 128/38 110/46 O2 Sat by Pulse 90 93 94 Oximetry 03/19/19 03/19/19 03/19/19 00:06 00:18 00:28 Temperature Pulse Rate 88 Pulse Rate [ 88 87 Anterior Bilateral Throughout] Respiratory Rate Respiratory 22 22 Rate [Anterior Bilateral Throughout] Blood Pressure 110/46 O2 Sat by Pulse 96 Oximetry 03/19/19 03/19/19 03/19/19 00:30 01:00 01:30 Temperature Pulse Rate 87 89 85 Pulse Rate [ Anterior Bilateral Throughout] Respiratory 24 24 22 Rate Respiratory Rate [Anterior Bilateral Throughout] Blood Pressure 129/37 129/61 120/36 O2 Sat by Pulse 95 95 94 Oximetry 03/19/19 03/19/19 03/19/19 02:00 02:30 03:00 Temperature Pulse Rate 88 91 H 94 H Pulse Rate [ Anterior Bilateral Throughout] Respiratory 22 25 H 22 Rate Respiratory Rate [Anterior Bilateral Throughout] Blood Pressure 127/32 97/42 127/29 O2 Sat by Pulse 95 96 Oximetry 03/19/19 03/19/19 03/19/19 03:24 03:30 04:00 Temperature 98.5 F Pulse Rate 91 H 91 H 89 Pulse Rate [ Anterior Bilateral Throughout] Respiratory 22 24 Rate Respiratory Rate [Anterior Bilateral Throughout] Blood Pressure 129/62 121/41 131/23 O2 Sat by Pulse 94 93 96 Oximetry 03/19/19 03/19/19 04:30 05:00 Temperature Pulse Rate 85 87 Pulse Rate [ Anterior Bilateral Throughout] Respiratory 20 22 Rate Respiratory Rate [Anterior Bilateral Throughout] Blood Pressure 112/55 132/43 O2 Sat by Pulse 93 93 Oximetry Constitutional: appears uncomfortable, other (m,iddle aged morbidly obese CM, normocephalic with mildly increased resp effort at rest on MVS) Eyes: non-icteric ENT: oropharynx moist, other (ETT 24 cm ASHA) Neck: supple, no lymphadenopathy, no JVD, other (large neck circumference) Effort: very labored Ascultation: Bilateral: diminished breath sounds, rhonchi (bases) Percussion: Bilateral: not dull Cardiovascular: regular rate and rhythm, other (No R/M) Gastrointestinal: normoactive bowel sounds, soft, non-tender, non-distended Integumentary: normal Extremities: no cyanosis, pink and warm, pulses normal, no ischemia or petechiae Neurologic: non-focal exam (grossly), pupils equal and round, unable to assess, other (Encephalopathic) Psychiatric: other (unable to assess) CBC and BMP: 03/20/19 04:45 03/20/19 04:45 ABG, PT/INR, D-dimer: ABG POC ABG pH 7.398 (7.35-7.45) 03/19/19 03:48 POC ABG pCO2 43.5 (35-45) 03/19/19 03:48 POC ABG pO2 80 (80-105) 03/19/19 03:48 POC ABG HCO3 26.8 (22-26 mml/L) 03/19/19 03:48 POC ABG Total CO2 28 (23-27mmol/L) 03/19/19 03:48 POC ABG O2 Sat 96 03/19/19 03:48 PT/INR, D-dimer PT 14.4 Sec. (12.2-14.9) 03/10/19 17:57 INR 1.15 (0.87-1.13) H 03/10/19 17:57 Abnormal lab findings: Abnormal Labs 03/10/19 03/10/19 03/10/19 17:57 17:57 17:57 WBC 1.2 L* RBC 2.46 L Hgb 7.9 L Hct 23.2 L MCV MCHC RDW 18.2 H Plt Count 47 L [place] # 0.9 H Seg Neuts % (Manual) 6.0 L Lymphocytes % (Manual) 74.0 H Monocytes % (Manual) 20.0 H Nucleated RBC % Seg Neutrophils # 0.1 L Seg Neutrophils # Man 0.1 L Lymphocytes # (Manual) 0.9 L Monocytes # (Manual) INR POC ABG pH POC ABG pCO2 POC ABG pO2 Potassium Chloride Carbon Dioxide BUN 46 H Creatinine 2.9 H Glucose 200 H POC Glucose Lactic Acid 2.50 H* Calcium 7.6 L Total Bilirubin AST ALT Total Creatine Kinase CK-MB (CK-2) Troponin T Total Protein Albumin 3.2 L Cholesterol LDL Cholesterol Direct HDL Cholesterol Urine WBC (Auto) Crossmatch 03/10/19 03/10/19 03/10/19 17:57 18:01 18:52 WBC RBC Hgb Hct MCV MCHC RDW Plt Count [place] # Seg Neuts % (Manual) Lymphocytes % (Manual) Monocytes % (Manual) Nucleated RBC % Seg Neutrophils # Seg Neutrophils # Man Lymphocytes # (Manual) Monocytes # (Manual) INR 1.15 H POC ABG pH POC ABG pCO2 POC ABG pO2 Potassium Chloride Carbon Dioxide BUN Creatinine Glucose POC Glucose 234 H Lactic Acid Calcium Total Bilirubin AST ALT Total Creatine Kinase CK-MB (CK-2) Troponin T Total Protein Albumin Cholesterol LDL Cholesterol Direct HDL Cholesterol Urine WBC (Auto) Crossmatch See Detail 03/10/19 03/10/19 03/10/19 19:16 20:56 21:32 WBC RBC Hgb Hct MCV MCHC RDW Plt Count [place] # Seg Neuts % (Manual) Lymphocytes % (Manual) Monocytes % (Manual) Nucleated RBC % Seg Neutrophils # Seg Neutrophils # Man Lymphocytes # (Manual) Monocytes # (Manual) INR POC ABG pH 7.274 L POC ABG pCO2 46.6 H POC ABG pO2 315 H Potassium Chloride Carbon Dioxide BUN Creatinine Glucose POC Glucose Lactic Acid 2.80 H* Calcium Total Bilirubin AST ALT Total Creatine Kinase CK-MB (CK-2) Troponin T Total Protein Albumin Cholesterol LDL Cholesterol Direct HDL Cholesterol Urine WBC (Auto) Crossmatch 03/10/19 03/10/19 03/11/19 23:06 23:29 00:50 WBC RBC Hgb Hct MCV MCHC RDW Plt Count [place] # Seg Neuts % (Manual) Lymphocytes % (Manual) Monocytes % (Manual) Nucleated RBC % Seg Neutrophils # Seg Neutrophils # Man Lymphocytes # (Manual) Monocytes # (Manual) INR POC ABG pH POC ABG pCO2 POC ABG pO2 Potassium Chloride Carbon Dioxide BUN Creatinine Glucose POC Glucose 237 H Lactic Acid Calcium Total Bilirubin AST ALT Total Creatine Kinase 513 H CK-MB (CK-2) Troponin T 0.075 H Total Protein Albumin Cholesterol < 4 L LDL Cholesterol Direct 4 L HDL Cholesterol < 3 L Urine WBC (Auto) 24.0 H Crossmatch 03/11/19 03/11/19 03/11/19 05:01 05:01 06:06 WBC RBC 2.29 L Hgb 7.3 L Hct 22.2 L MCV 97 H MCHC RDW 18.2 H Plt Count 40 L [place] # Seg Neuts % (Manual) 8.0 L Lymphocytes % (Manual) 67.0 H Monocytes % (Manual) 24.0 H Nucleated RBC % 5.0 H Seg Neutrophils # Seg Neutrophils # Man 0.4 L Lymphocytes # (Manual) Monocytes # (Manual) 1.2 H INR POC ABG pH POC ABG pCO2 32.8 L POC ABG pO2 Potassium 5.3 H Chloride Carbon Dioxide 19 L BUN 49 H Creatinine 3.7 H Glucose 203 H POC Glucose Lactic Acid Calcium 7.1 L Total Bilirubin AST ALT Total Creatine Kinase CK-MB (CK-2) Troponin T Total Protein Albumin Cholesterol LDL Cholesterol Direct HDL Cholesterol Urine WBC (Auto) Crossmatch 03/11/19 03/11/19 03/11/19 06:07 06:35 13:07 WBC RBC Hgb Hct MCV MCHC RDW Plt Count [place] # Seg Neuts % (Manual) Lymphocytes % (Manual) Monocytes % (Manual) Nucleated RBC % Seg Neutrophils # Seg Neutrophils # Man Lymphocytes # (Manual) Monocytes # (Manual) INR POC ABG pH POC ABG pCO2 POC ABG pO2 Potassium Chloride Carbon Dioxide BUN Creatinine Glucose POC Glucose 209 H 185 H Lactic Acid Calcium Total Bilirubin AST ALT Total Creatine Kinase 1156 H CK-MB (CK-2) 4.6 H Troponin T 0.077 H Total Protein Albumin Cholesterol LDL Cholesterol Direct HDL Cholesterol Urine WBC (Auto) Crossmatch 03/11/19 03/11/19 03/12/19 18:36 23:45 04:25 WBC RBC Hgb Hct MCV MCHC RDW Plt Count [place] # Seg Neuts % (Manual) Lymphocytes % (Manual) Monocytes % (Manual) Nucleated RBC % Seg Neutrophils # Seg Neutrophils # Man Lymphocytes # (Manual) Monocytes # (Manual) INR POC ABG pH 7.320 L POC ABG pCO2 POC ABG pO2 Potassium Chloride Carbon Dioxide BUN Creatinine Glucose POC Glucose 126 H 137 H Lactic Acid Calcium Total Bilirubin AST ALT Total Creatine Kinase CK-MB (CK-2) Troponin T Total Protein Albumin Cholesterol LDL Cholesterol Direct HDL Cholesterol Urine WBC (Auto) Crossmatch 03/12/19 03/12/19 03/12/19 05:06 05:06 05:57 WBC RBC 2.24 L Hgb 7.2 L Hct 21.9 L MCV 98 H MCHC RDW 18.3 H Plt Count 38 L [place] # Seg Neuts % (Manual) 4.0 L Lymphocytes % (Manual) Monocytes % (Manual) 69.0 H Nucleated RBC % Seg Neutrophils # Seg Neutrophils # Man 0.3 L Lymphocytes # (Manual) Monocytes # (Manual) 4.9 H INR POC ABG pH POC ABG pCO2 POC ABG pO2 Potassium 6.6 H* D Chloride Carbon Dioxide 17 L BUN 66 H Creatinine 5.6 H D Glucose 149 H POC Glucose 165 H Lactic Acid Calcium 6.5 L Total Bilirubin 1.90 H AST 782 H ALT 382 H Total Creatine Kinase CK-MB (CK-2) Troponin T Total Protein 5.7 L Albumin 2.7 L Cholesterol LDL Cholesterol Direct HDL Cholesterol Urine WBC (Auto) Crossmatch 03/12/19 03/12/19 03/12/19 07:19 15:24 18:55 WBC RBC Hgb Hct MCV MCHC RDW Plt Count [place] # Seg Neuts % (Manual) Lymphocytes % (Manual) Monocytes % (Manual) Nucleated RBC % Seg Neutrophils # Seg Neutrophils # Man Lymphocytes # (Manual) Monocytes # (Manual) INR POC ABG pH POC ABG pCO2 POC ABG pO2 Potassium 6.6 H* Chloride Carbon Dioxide BUN Creatinine Glucose POC Glucose 167 H 212 H Lactic Acid Calcium Total Bilirubin AST ALT Total Creatine Kinase CK-MB (CK-2) Troponin T Total Protein Albumin Cholesterol LDL Cholesterol Direct HDL Cholesterol Urine WBC (Auto) Crossmatch 03/12/19 03/13/19 03/13/19 23:45 05:37 09:11 WBC RBC Hgb Hct MCV MCHC RDW Plt Count [place] # Seg Neuts % (Manual) Lymphocytes % (Manual) Monocytes % (Manual) Nucleated RBC % Seg Neutrophils # Seg Neutrophils # Man Lymphocytes # (Manual) Monocytes # (Manual) INR POC ABG pH POC ABG pCO2 POC ABG pO2 Potassium Chloride Carbon Dioxide BUN 52 H Creatinine 5.5 H Glucose 235 H POC Glucose 197 H 250 H Lactic Acid Calcium 6.2 L Total Bilirubin AST ALT Total Creatine Kinase CK-MB (CK-2) Troponin T Total Protein Albumin Cholesterol LDL Cholesterol Direct HDL Cholesterol Urine WBC (Auto) Crossmatch 03/13/19 03/13/19 03/13/19 09:11 11:06 12:38 WBC RBC 1.99 L 2.07 L Hgb 6.4 L 6.6 L Hct 18.7 L* 19.6 L* MCV 95 H MCHC RDW 18.5 H 18.5 H Plt Count 36 L 33 L [place] # Seg Neuts % (Manual) Lymphocytes % (Manual) Monocytes % (Manual) Nucleated RBC % Seg Neutrophils # Seg Neutrophils # Man Lymphocytes # (Manual) Monocytes # (Manual) INR POC ABG pH POC ABG pCO2 POC ABG pO2 Potassium Chloride Carbon Dioxide BUN Creatinine Glucose POC Glucose 268 H Lactic Acid Calcium Total Bilirubin AST ALT Total Creatine Kinase CK-MB (CK-2) Troponin T Total Protein Albumin Cholesterol LDL Cholesterol Direct HDL Cholesterol Urine WBC (Auto) Crossmatch 03/13/19 03/13/19 03/13/19 18:11 19:12 20:58 WBC RBC Hgb Hct MCV MCHC RDW Plt Count [place] # Seg Neuts % (Manual) Lymphocytes % (Manual) Monocytes % (Manual) Nucleated RBC % Seg Neutrophils # Seg Neutrophils # Man Lymphocytes # (Manual) Monocytes # (Manual) INR POC ABG pH 7.466 H POC ABG pCO2 POC ABG pO2 Potassium Chloride Carbon Dioxide BUN Creatinine Glucose POC Glucose 255 H Lactic Acid Calcium Total Bilirubin AST ALT Total Creatine Kinase CK-MB (CK-2) Troponin T Total Protein Albumin Cholesterol LDL Cholesterol Direct HDL Cholesterol Urine WBC (Auto) Crossmatch See Detail 03/13/19 03/14/19 03/14/19 23:49 05:51 11:39 WBC RBC Hgb Hct MCV MCHC RDW Plt Count [place] # Seg Neuts % (Manual) Lymphocytes % (Manual) Monocytes % (Manual) Nucleated RBC % Seg Neutrophils # Seg Neutrophils # Man Lymphocytes # (Manual) Monocytes # (Manual) INR POC ABG pH POC ABG pCO2 POC ABG pO2 Potassium Chloride Carbon Dioxide BUN Creatinine Glucose POC Glucose 289 H 305 H 283 H Lactic Acid Calcium Total Bilirubin AST ALT Total Creatine Kinase CK-MB (CK-2) Troponin T Total Protein Albumin Cholesterol LDL Cholesterol Direct HDL Cholesterol Urine WBC (Auto) Crossmatch 03/14/19 03/14/19 03/15/19 13:43 18:12 00:43 WBC 14.0 H RBC 2.78 L Hgb 8.9 L Hct 26.0 L D MCV MCHC RDW 17.9 H Plt Count 42 L [place] # Seg Neuts % (Manual) 2.0 L Lymphocytes % (Manual) 84.0 H Monocytes % (Manual) 13.0 H Nucleated RBC % Seg Neutrophils # Seg Neutrophils # Man 0.3 L Lymphocytes # (Manual) 11.8 H Monocytes # (Manual) 1.8 H INR POC ABG pH POC ABG pCO2 POC ABG pO2 Potassium Chloride Carbon Dioxide BUN Creatinine Glucose POC Glucose 313 H 236 H Lactic Acid Calcium Total Bilirubin AST ALT Total Creatine Kinase CK-MB (CK-2) Troponin T Total Protein Albumin Cholesterol LDL Cholesterol Direct HDL Cholesterol Urine WBC (Auto) Crossmatch 03/15/19 03/15/19 03/15/19 04:24 07:15 07:15 WBC 16.1 H RBC 2.50 L Hgb 8.1 L Hct 23.4 L MCV MCHC 35 H RDW 18.5 H Plt Count 42 L [place] # Seg Neuts % (Manual) 2.0 L Lymphocytes % (Manual) 41.0 H Monocytes % (Manual) 11.0 H Nucleated RBC % Seg Neutrophils # Seg Neutrophils # Man 0.3 L Lymphocytes # (Manual) 6.6 H Monocytes # (Manual) 1.8 H INR POC ABG pH 7.497 H POC ABG pCO2 34.0 L POC ABG pO2 Potassium Chloride 96.0 L Carbon Dioxide BUN 47 H Creatinine 5.0 H Glucose 287 H POC Glucose Lactic Acid Calcium 7.2 L D Total Bilirubin AST 522 H ALT 474 H Total Creatine Kinase CK-MB (CK-2) Troponin T Total Protein 5.7 L Albumin 2.4 L Cholesterol LDL Cholesterol Direct HDL Cholesterol Urine WBC (Auto) Crossmatch 03/15/19 03/15/19 03/15/19 07:24 11:18 17:12 WBC RBC Hgb Hct MCV MCHC RDW Plt Count [place] # Seg Neuts % (Manual) Lymphocytes % (Manual) Monocytes % (Manual) Nucleated RBC % Seg Neutrophils # Seg Neutrophils # Man Lymphocytes # (Manual) Monocytes # (Manual) INR POC ABG pH POC ABG pCO2 POC ABG pO2 Potassium Chloride Carbon Dioxide BUN Creatinine Glucose POC Glucose 285 H 287 H 221 H Lactic Acid Calcium Total Bilirubin AST ALT Total Creatine Kinase CK-MB (CK-2) Troponin T Total Protein Albumin Cholesterol LDL Cholesterol Direct HDL Cholesterol Urine WBC (Auto) Crossmatch 03/15/19 03/16/19 03/16/19 23:19 03:49 05:26 WBC RBC Hgb Hct MCV MCHC RDW Plt Count [place] # Seg Neuts % (Manual) Lymphocytes % (Manual) Monocytes % (Manual) Nucleated RBC % Seg Neutrophils # Seg Neutrophils # Man Lymphocytes # (Manual) Monocytes # (Manual) INR POC ABG pH 7.487 H POC ABG pCO2 34.3 L POC ABG pO2 254 H Potassium Chloride Carbon Dioxide BUN Creatinine Glucose POC Glucose 297 H 271 H Lactic Acid Calcium Total Bilirubin AST ALT Total Creatine Kinase CK-MB (CK-2) Troponin T Total Protein Albumin Cholesterol LDL Cholesterol Direct HDL Cholesterol Urine WBC (Auto) Crossmatch 03/16/19 03/16/19 03/16/19 11:26 17:55 23:47 WBC RBC Hgb Hct MCV MCHC RDW Plt Count [place] # Seg Neuts % (Manual) Lymphocytes % (Manual) Monocytes % (Manual) Nucleated RBC % Seg Neutrophils # Seg Neutrophils # Man Lymphocytes # (Manual) Monocytes # (Manual) INR POC ABG pH POC ABG pCO2 POC ABG pO2 Potassium Chloride Carbon Dioxide BUN Creatinine Glucose POC Glucose 298 H 304 H 260 H Lactic Acid Calcium Total Bilirubin AST ALT Total Creatine Kinase CK-MB (CK-2) Troponin T Total Protein Albumin Cholesterol LDL Cholesterol Direct HDL Cholesterol Urine WBC (Auto) Crossmatch 03/17/19 03/17/19 03/17/19 04:08 05:30 05:30 WBC 18.8 H RBC 2.13 L Hgb 6.9 L Hct 20.0 L MCV MCHC 35 H RDW 18.4 H Plt Count 34 L [place] # Seg Neuts % (Manual) Lymphocytes % (Manual) Monocytes % (Manual) Nucleated RBC % Seg Neutrophils # Seg Neutrophils # Man Lymphocytes # (Manual) Monocytes # (Manual) INR POC ABG pH 7.491 H POC ABG pCO2 31.1 L POC ABG pO2 70 L Potassium 3.5 L Chloride 96.6 L Carbon Dioxide BUN 86 H Creatinine 7.4 H Glucose 222 H POC Glucose Lactic Acid Calcium 6.9 L Total Bilirubin AST ALT Total Creatine Kinase CK-MB (CK-2) Troponin T Total Protein Albumin Cholesterol LDL Cholesterol Direct HDL Cholesterol Urine WBC (Auto) Crossmatch 03/17/19 03/17/19 03/17/19 05:55 12:09 13:06 WBC RBC Hgb Hct MCV MCHC RDW Plt Count [place] # Seg Neuts % (Manual) Lymphocytes % (Manual) Monocytes % (Manual) Nucleated RBC % Seg Neutrophils # Seg Neutrophils # Man Lymphocytes # (Manual) Monocytes # (Manual) INR POC ABG pH POC ABG pCO2 POC ABG pO2 Potassium Chloride Carbon Dioxide BUN Creatinine Glucose POC Glucose 218 H 246 H Lactic Acid Calcium Total Bilirubin AST ALT Total Creatine Kinase CK-MB (CK-2) Troponin T Total Protein Albumin Cholesterol LDL Cholesterol Direct HDL Cholesterol Urine WBC (Auto) Crossmatch See Detail 03/17/19 03/18/19 03/18/19 17:37 00:06 04:49 WBC RBC Hgb Hct MCV MCHC RDW Plt Count [place] # Seg Neuts % (Manual) Lymphocytes % (Manual) Monocytes % (Manual) Nucleated RBC % Seg Neutrophils # Seg Neutrophils # Man Lymphocytes # (Manual) Monocytes # (Manual) INR POC ABG pH 7.569 H POC ABG pCO2 30.6 L POC ABG pO2 Potassium Chloride Carbon Dioxide BUN Creatinine Glucose POC Glucose 253 H 233 H Lactic Acid Calcium Total Bilirubin AST ALT Total Creatine Kinase CK-MB (CK-2) Troponin T Total Protein Albumin Cholesterol LDL Cholesterol Direct HDL Cholesterol Urine WBC (Auto) Crossmatch 03/18/19 03/18/19 03/18/19 05:43 05:45 12:09 WBC 28.3 H RBC 2.50 L Hgb 8.1 L Hct 23.4 L MCV MCHC 35 H RDW 17.7 H Plt Count 36 L [place] # Seg Neuts % (Manual) 0 L Lymphocytes % (Manual) 4.0 L Monocytes % (Manual) Nucleated RBC % 1.0 H Seg Neutrophils # Seg Neutrophils # Man 0.0 L Lymphocytes # (Manual) 1.1 L Monocytes # (Manual) 1.4 H INR POC ABG pH POC ABG pCO2 POC ABG pO2 Potassium Chloride Carbon Dioxide BUN Creatinine Glucose POC Glucose 310 H 258 H Lactic Acid Calcium Total Bilirubin AST ALT Total Creatine Kinase CK-MB (CK-2) Troponin T Total Protein Albumin Cholesterol LDL Cholesterol Direct HDL Cholesterol Urine WBC (Auto) Crossmatch 03/18/19 03/19/19 17:43 00:04 WBC RBC Hgb Hct MCV MCHC RDW Plt Count [place] # Seg Neuts % (Manual) Lymphocytes % (Manual) Monocytes % (Manual) Nucleated RBC % Seg Neutrophils # Seg Neutrophils # Man Lymphocytes # (Manual) Monocytes # (Manual) INR POC ABG pH POC ABG pCO2 POC ABG pO2 Potassium Chloride Carbon Dioxide BUN Creatinine Glucose POC Glucose 252 H 215 H Lactic Acid Calcium Total Bilirubin AST ALT Total Creatine Kinase CK-MB (CK-2) Troponin T Total Protein Albumin Cholesterol LDL Cholesterol Direct HDL Cholesterol Urine WBC (Auto) Crossmatch Chest x-ray: image reviewed (ETT in good position) Allied health notes reviewed: nursing
--- NOTE | 2019-03-19 08:05 | Progress Note ---
Assessment and Plan Assessment and plan: Patient is a 54 yo man with a history of hypertension, DM type 2, CKD 3 and CAD s/p shents who presented to [facility] ED on 03/10/19 with SOB and cough. Dental pain with ?abscess preceded this illness. He had a PEA cardiac arrest in ED, was successfully resucitated, intubated, stated on vasopressor and admitted to ICU. He had whole body jerking in ED, ?seizure activity. * Initial CT chest wo contrast IMPRESSION: Small pericardial effusion ET in satisfactory position. Atelectasis posterior aspects of both lungs. * Initial CT abd/pelvis wo contrast IMPRESSION: Possible mild right colonic wall thickening and trace free fluid in the right paracolic gutter and pelvis may be infectious, inflammatory or ischemic in etiology. No pneumoperitoneum or focal fluid collection to suggest abscess. Mild pericholecystic edema. No calcified gallstones. If there is concern for cholecystitis, consider follow- up ultrasound and/or nuclear medicine hepatobiliary scan. Small pericardial effusion. Coronary and peripheral arterial disease. * CT head wo contrast IMPRESSION: Nonspecific findings with some indistinctness of the basal ganglia and dean-white matter differentiation which may be seen with hypoxic ischemic brain injury * TTE on 03/11/19: Technically difficult due to body habitus, mild concentric LVH, estimated EF 40-45%, abnormal LV diastolic filling c/w impaired relaxation...no pericardial effusion Cardiopulmonary Arrest: supportive care Acute encephalopathy, poa with jerking activity following NGT placement thought to be seizures ?seizure, ?diffused hypoxic ischemic brain injury: Consulted Neurology, input noted Acute Hypoxic Respiratory Failure, On mechanical ventilation >96hrs. Pulmonary following Severe Sepsis with Shock: off Vasopressors. ?Dental abscess vs Group A strep. ID following, continues on abx, No evidence of Endocarditis on TTE Multi system Organ failure, poa Acute combined heart failure, poa: Cardiology is following DM type 2 with hyperglycemia-POA: Lantus and adjust sliding scale Insulin severe Anemia- Transfuse Thrombocytopenia ?DIC secondary to underlying condition: Hold Antiplatelets Pericardial effusion: Cardiology following ARF/CKD 3 due to ATN, poa with suspected progression to ESRD: on HD, Nephrology is following Morbid obesity, bmi 55.9: Counselling when more awake Severe Protein calorie malnutrition, poa: Commercial Collector consult Acute Metabolic Encephalopathy: Neurology consulted ?ischemic brain injury Diarrhea-C,DIFF RULED OUT- fecal tube in place SHOCK LIVER-HEPATIC FAILURE-improve bp and follow CAD by hx-POA Sacral Pressure ulcer, poa- Wound care consulted, input noted poor prognosis CCT 32 minutes History Interval history: Patient was seen and examined. Follow-up on current diagnosis Respiratory failure. No overnight events reported to me. Imaging, nursing note, chart, labs and old chart reviewed. Hospitalist Physical - Physical exam Narrative exam: Gen: critically ill appearing, bmi 55.9 HEENT: NCAT, EOMI, PERRL, OP Clear Neck: supple, no adenopathy, no thyromegaly, no JVD CVS/Heart: RRR, normal S1S2, pulses present bilaterally Chest/Lungs: diminished bs bilateral Symmetrical chest expansion, ok air entry bilaterally GI/Abdomen: soft, NTND, good bowel sounds, no guarding or rebound /Bladder: no suprapubic tenderness, no CVA or paraspinal tenderness Extermity/Skin: edema MSK: sedated Neuro: sedated Psych: sedated - Constitutional Vitals: Temp Pulse Resp BP Pulse Ox 98.5 F 90 21 119/54 94 03/19/19 04:00 03/19/19 07:29 03/19/19 07:29 03/19/19 07:24 03/19/19 07:24 General appearance: Present: obese Results - Labs CBC & Chem 7: 03/18/19 05:45 03/17/19 05:30 Labs: Laboratory Last Values WBC 28.3 K/mm3 (4.5-11.0) H 03/18/19 05:45 RBC 2.50 M/mm3 (3.65-5.03) L 03/18/19 05:45 Hgb 8.1 gm/dl (11.8-15.2) L 03/18/19 05:45 Hct 23.4 % (35.5-45.6) L 03/18/19 05:45 MCV 93 fl (84-94) 03/18/19 05:45 MCH 32 pg (28-32) 03/18/19 05:45 MCHC 35 % (32-34) H 03/18/19 05:45 RDW 17.7 % (13.2-15.2) H 03/18/19 05:45 Plt Count 36 K/mm3 (140-440) L 03/18/19 05:45 [place] % (Auto) Drilling Assistant 03/18/19 05:45 Eos % (Auto) 0.4 % (0.0-4.3) 03/10/19 17:57 [place] # 0.9 K/mm3 (0.0-0.8) H 03/10/19 17:57 Eos # 0.0 K/mm3 (0.0-0.4) 03/10/19 17:57 Baso # 0.0 K/mm3 (0.0-0.1) 03/10/19 17:57 Add Manual Diff Complete 03/18/19 05:45 Total Counted 100 03/18/19 05:45 Seg Neutrophils % Drilling Assistant 03/18/19 05:45 Seg Neuts % (Manual) 0 % (40.0-70.0) L 03/18/19 05:45 0 % 03/18/19 05:45 4.0 % (13.4-35.0) L 03/18/19 05:45 Reactive Lymphs % (Man) 0 % 03/18/19 05:45 5.0 % (0.0-7.3) 03/18/19 05:45 0 % (0.0-4.3) 03/18/19 05:45 0 % (0.0-1.8) 03/18/19 05:45 1.0 % 03/18/19 05:45 0 % 03/18/19 05:45 0 % 03/18/19 05:45 90.0 % 03/18/19 05:45 Nucleated RBC % 1.0 % (0.0-0.9) H 03/18/19 05:45 Seg Neutrophils # 0.1 K/mm3 (1.8-7.7) L 03/10/19 17:57 Seg Neutrophils # Man 0.0 K/mm3 (1.8-7.7) L 03/18/19 05:45 Band Neutrophils # 0.0 K/mm3 03/18/19 05:45 1.1 K/mm3 (1.2-5.4) L 03/18/19 05:45 Abs React Lymphs (Man) 0.0 K/mm3 03/18/19 05:45 1.4 K/mm3 (0.0-0.8) H 03/18/19 05:45 0.0 K/mm3 (0.0-0.4) 03/18/19 05:45 0.0 K/mm3 (0.0-0.1) 03/18/19 05:45 0.3 K/mm3 03/18/19 05:45 0.0 K/mm3 03/18/19 05:45 0.0 K/mm3 03/18/19 05:45 Blast Cells # 0.0 K/mm3 03/18/19 05:45 Pathologist Review 03/10/19 17:57 WBC Morphology Not Reportable 03/18/19 05:45 WBC Morphology TNR 03/18/19 05:45 Hypersegmented Neuts Not Reportable 03/18/19 05:45 Hyposegmented Neuts Not Reportable 03/18/19 05:45 Hypogranular Neuts Not Reportable 03/18/19 05:45 Not Reportable 03/18/19 05:45 Not Reportable 03/18/19 05:45 Not Reportable 03/18/19 05:45 Not Reportable 03/18/19 05:45 Not Reportable 03/18/19 05:45 Not Reportable 03/18/19 05:45 Consistent w auto 03/18/19 05:45 Not Reportable 03/18/19 05:45 Plt Clumps, EDTA Not Reportable 03/18/19 05:45 Not Reportable 03/18/19 05:45 Not Reportable 03/18/19 05:45 Not Reportable 03/18/19 05:45 Plt Morphology Comment Not Reportable 03/18/19 05:45 RBC Morphology Not Reportable 03/18/19 05:45 Dimorphic RBCs Not Reportable 03/18/19 05:45 Few 03/18/19 05:45 Not Reportable 03/18/19 05:45 Not Reportable 03/18/19 05:45 1+ 03/18/19 05:45 Few 03/18/19 05:45 Not Reportable 03/18/19 05:45 Not Reportable 03/18/19 05:45 Not Reportable 03/18/19 05:45 Not Reportable 03/18/19 05:45 Not Reportable 03/18/19 05:45 Few 03/18/19 05:45 1+ 03/18/19 05:45 Not Reportable 03/18/19 05:45 Not Reportable 03/18/19 05:45 Not Reportable 03/18/19 05:45 Not Reportable 03/18/19 05:45 Not Reportable 03/18/19 05:45 Not Reportable 03/18/19 05:45 Not Reportable 03/18/19 05:45 Acanthocytes (Spur) Few 03/18/19 05:45 Rouleaux Not Reportable 03/18/19 05:45 Not Reportable 03/18/19 05:45 Not Reportable 03/18/19 05:45 Not Reportable 03/18/19 05:45 Not Reportable 03/18/19 05:45 Hem Pathologist Commnt Sent to pathology 03/18/19 05:45 PT 14.4 Sec. (12.2-14.9) 03/10/19 17:57 INR 1.15 (0.87-1.13) H 03/10/19 17:57 APTT 28.8 Sec. (24.2-36.6) 03/10/19 17:57 POC ABG pH 7.398 (7.35-7.45) 03/19/19 03:48 POC ABG pCO2 43.5 (35-45) 03/19/19 03:48 POC ABG pO2 80 (80-105) 03/19/19 03:48 POC ABG HCO3 26.8 (22-26 mml/L) 03/19/19 03:48 POC ABG Total CO2 28 (23-27mmol/L) 03/19/19 03:48 POC ABG O2 Sat 96 03/19/19 03:48 POC ABG Base Excess 2 ((-2) - (+3)mmol/L) 03/19/19 03:48 VBG pH 7.381 (7.320-7.420) 03/10/19 17:57 45 % 03/19/19 03:48 Sodium 140 mmol/L (137-145) 03/17/19 05:30 Potassium 3.5 mmol/L (3.6-5.0) L 03/17/19 05:30 Chloride 96.6 mmol/L (98-107) L 03/17/19 05:30 Carbon Dioxide 24 mmol/L (22-30) 03/17/19 05:30 23 mmol/L 03/17/19 05:30 BUN 86 mg/dL (9-20) H 03/17/19 05:30 7.4 mg/dL (0.8-1.5) H 03/17/19 05:30 Estimated GFR 8 ml/min 03/17/19 05:30 12 % 03/17/19 05:30 Glucose 222 mg/dL (75-100) H 03/17/19 05:30 POC Glucose 301 (70-105) H 03/19/19 06:17 Lactic Acid 1.70 mmol/L (0.7-2.0) 03/10/19 23:17 4.0 mg/dL (3.5-7.6) 03/19/19 06:15 Calcium 6.9 mg/dL (8.4-10.2) L 03/17/19 05:30 Magnesium 1.80 mg/dL (1.7-2.3) 03/17/19 05:30 0.50 mg/dL (0.1-1.2) 03/15/19 07:15 AST 522 units/L (5-40) H 03/15/19 07:15 ALT 474 units/L (7-56) H 03/15/19 07:15 129 units/L (35-129) 03/15/19 07:15 853 units/L (91-180) H 03/19/19 06:15 1156 units/L (55-170) H 03/11/19 06:07 CK-MB (CK-2) 4.6 ng/mL (0.0-4.0) H 03/11/19 06:07 CK-MB (CK-2) Rel Index 0.3 (0-4) 03/11/19 06:07 0.077 ng/mL (0.00-0.029) H 03/11/19 06:07 5.7 g/dL (6.3-8.2) L 03/15/19 07:15 2.4 g/dL (3.9-5) L 03/15/19 07:15 0.7 % 03/15/19 07:15 Triglycerides 91 mg/dL (2-149) 03/11/19 00:50 Cholesterol < 4 mg/dL (50-199) L 03/11/19 00:50 4 mg/dL (50-130) L 03/11/19 00:50 < 3 mg/dL (40-59) L 03/11/19 00:50 1.00 % 03/11/19 00:50 [place] (Yellow) 03/10/19 23:06 Cloudy (Clear) 03/10/19 23:06 5.0 (5.0-7.0) 03/10/19 23:06 Ur Specific [place] 1.016 (1.003-1.030) 03/10/19 23:06 >500 mg/dL (Negative) 03/10/19 23:06 Neg mg/dL (Negative) 03/10/19 23:06 Neg mg/dL (Negative) 03/10/19 23:06 Mod (Negative) 03/10/19 23:06 Neg (Negative) 03/10/19 23:06 Neg (Negative) 03/10/19 23:06 2.0 mg/dL (<2.0) 03/10/19 23:06 Ur Leukocyte Esterase Neg (Negative) 03/10/19 23:06 24.0 /HPF (0.0-6.0) H 03/10/19 23:06 24.0 /HPF (0.0-6.0) 03/10/19 23:06 U Epithel Cells (Auto) 4.0 /HPF (0-13.0) 03/10/19 23:06 Amorphous Crystals Few 03/10/19 23:06 Random Vancomycin 14 ug/mL (0-40.0) 03/12/19 05:06 Proteinase 3 (PR3) Ab <1.0 AI (<1.0) 03/13/19 09:11 Myeloperoxidase Ab <1.0 AI (<1.0) 03/13/19 09:11 86 mg/dL (82-185) 03/13/19 09:12 37 mg/dL (15-53) 03/13/19 09:12 C. difficile Tox (PCR) Negative (Negative) 03/11/19 Unknown Hepatitis A IgM Ab Non-reactive (NonReactive) 03/13/19 01:31 Hep Bs Antigen Non-reactive (Negative) 03/13/19 01:31 Hep B Core IgM Ab Non-reactive (NonReactive) 03/13/19 01:31 Non-reactive (NonReactive) 03/13/19 01:31 Influenza A (Rapid) Negative (Negative) 03/10/19 18:00 Influenza B (Rapid) Negative (Negative) 03/10/19 18:00 Blood Type A POSITIVE 03/17/19 13:06 Antibody Screen Negative 03/17/19 13:06 Crossmatch See Detail 03/17/19 13:06 Active Medications - Current Medications Current Medications: Generic Name Dose Route Start Last Admin Trade Name Freq PRN Reason Stop Dose Admin Acetaminophen 650 mg 03/11/19 00:40 03/17/19 16:45 Tylenol PO 650 mg Q4H PRN Administration Pain MILD(1-3)/Fever >100.5/[place] Acetaminophen 650 mg 03/11/19 00:40 03/12/19 04:53 Tylenol DC 650 mg Q4H PRN Administration Pain MILD(1-3)/Fever >100.5/[place] Albumin Human 12.5 gm 03/13/19 09:29 Alburx 25% (Albumin) IV DUKE PRN Hypotension Albuterol 2.5 mg 03/17/19 16:00 03/19/19 07:29 Proventil IH 2.5 mg Q8HRT ROXANNE Administration Lipase/Protease/Amylase 1 each 03/15/19 13:[address] 10,500 Unit FEEDTUBE PRN PRN For Clogged Feeding Tube Dextrose 50 ml 03/11/19 00:44 D50w (25gm) Syringe IV PRN PRN Hypoglycemia Fentanyl 50 mcg 03/11/19 07:50 03/18/19 11:44 Sublimaze IV 50 mcg Q10MIN PRN Administration ANALGESIA Hydrophilic Ointment 1 applic 03/10/19 19:50 Vaseline Lip Therapy TP Q2HR PRN Dry Lips Propofol 1,000 mg in 100 mls @ 4.082 mls/hr 03/10/19 20:00 03/11/19 14:30 Diprivan 10 Mg/Ml IV Infused TITR ROXANNE Titration Protocol 5 MCG/KG/MIN Norepinephrine 4 mg in 250 mls @ 7.5 mls/hr 03/10/19 21:00 03/19/19 04:30 Levophed Drip 4 Mg/Ns 250 Ml IV 10 mcg/min TITR ROXANNE 37.5 mls/hr Titration Protocol 2 MCG/MIN Fentanyl Citrate 2,000 mcg in 100 mls @ 6.804 mls/hr 03/11/19 08:00 03/18/19 23:25 Fentanyl Drip Premix IV 1 mcg/kg/hr TITR ROXANNE 6.804 mls/hr Administration Protocol 1 MCG/KG/HR Ceftriaxone Sodium 2 gm in 100 mls @ 200 mls/hr 03/11/19 13:00 03/18/19 21:29 Rocephin/Ns 2 Gm/100 Ml IV 200 mls/hr Q12HR ROXANNE Administration Protocol Clindamycin HCl 900 mg in 50 mls @ 100 mls/hr 03/13/19 09:00 03/19/19 00:55 Cleocin 900 Mg/50 Ml IV 100 mls/hr Q8H ROXANNE Administration Sodium Chloride 100 mls @ 999 mls/hr 03/15/19 08:11 Nacl 0.9% IV DUKE PRN Hypotension Insulin Glargine 40 units 03/19/19 08:00 Lantus SUB-Q QAMDIAB ROXANNE Insulin Human Lispro 0 unit 03/11/19 06:00 03/19/19 06:45 Humalog SUB-Q 8 unit Q6HR ROXANNE Administration Protocol Lansoprazole 30 mg 03/18/19 10:00 03/18/19 10:30 Prevacid Solutab FEEDTUBE 30 mg QDAY ROXANNE Administration Multi-Ingred Cream/Lotion/Oil/Oint 1 applic 03/10/19 19:50 Artificial Tears Ophth Oint OU Q4HR PRN Dry Eye(s) Ondansetron HCl 4 mg 03/11/19 00:40 Zofran IV Q8H PRN Nausea And Vomiting Simple Syrup 15 ml 03/15/19 13:21 Simple Syrup FEEDTUBE PRN PRN Hypoglycemia Simple Syrup 30 ml 03/15/19 13:21 Simple Syrup FEEDTUBE PRN PRN Hypoglycemia Sodium Bicarbonate 325 mg 03/15/19 13:21 Sodium Bicarbonate FEEDTUBE PRN PRN For Clogged Feeding Tube Sodium Chloride 10 ml 03/11/19 10:00 03/18/19 21:29 Sodium Chloride Flush Syringe 10 Ml IV 10 ml BID ROXANNE Administration Sodium Chloride 10 ml 03/11/19 00:40 Sodium Chloride Flush Syringe 10 Ml IV PRN PRN LINE FLUSH Nutrition/Malnutrition Assess - Dietary Evaluation Nutrition/Malnutrition Findings: Nutrition Notes Start: 03/12/19 11:38 Freq: Status: Active Protocol: Document 03/15/19 13:15 APOLINAR (Rec: 03/15/19 13:21 APOLINAR [email or web address]) Nutrition Notes Initial or Follow up Reassessment Other Pertinent Diagnosis s/p cardiac arrest, anoxic brain injury Current Diet TF - Nepro at 45ml/hr Labs/Tests BUN 47 Cr 5 BG 287 Pertinent Medications Lantus Height 5 ft 4 in Weight 147.8 kg [place] Body Weight (kg) 59.09 BMI 55.9 Subjective/Other Information Observed TF infusing at goal rate. Per RN, pt with gastric residuals ranging 190-200mL. Pt remains intubated on vent support. Had HD yesterday. Percent of energy/protein needs met: 73% energy 71% pro Burn Absent Trauma Absent #1 Nutrition Diagnosis Inadequate oral intake Diagnosis Progress(for reassessment Continues documentation) Is patient on ventilator? Yes Is Patient Ambulatory and/or Out of Bed No REE-([place]-confined to bed) 2672.304 Calculation Used for Recommendations 65-70% energy needs Additional Notes Energy needs: 0311-2877 kcal/ day Pro needs 1.2-1.4g/kg adjBW: 124-145g/day Fluid needs 1-1.5L/day Nutrition Intervention Nutrition Support: Continue Nepro at 45ml/hr with 120ml water flush q4h. Kcal 1,944 Protein (gm) 87 Carbohydrates (gm) 174 Fat (gm) 104 Fluid (mL) 785 Fiber (gm) 14 Goal #1 TF tolerance Goal #2 TF to meet nutrient needs as best possible Follow-Up By: 03/19/19 Additional Comments F/U: stable TF, water flushes, vent status
--- NOTE | 2019-03-19 08:26 | Hem/Onc Progress Note ---
Assessment and Plan 1. Anemia, leukopenia, thrombocytopenia. Peripheral smear mentions blasts. I discussed with Dr. mai. He said the presentation is very peculiar. flow cytometry as this could be acute neoplastic process. 2. CK is elevated, we will do LDH. We will do uric acid. As per the information available; 1. History of diabetes. 2. History of hypertension. 3. Coronary artery disease. 4. History of dental pain recently. 5. The patient had a cardiac arrest, status post cardiopulmonary resuscitation. 6. The patient is intubated. 7. Pericardial effusion. 8. Neurology note mentions coma. We will follow the patient during inpatient stay. We will await for flow cytometry result. - Patient Problems (1) Leukocytosis Current Visit: Yes Status: Acute Subjective Date of service: 03/19/19 Principal diagnosis: high wbc - blasts Interval history: on vent Objective - Exam Narrative Exam: Pain - pt non verbal General appearance intubated Performance status needs total care Eyes - no icterus ENT intubated LNs cervical not palpable Neck - not able to evalute fully Respiratory Normal Breath sounds - decreased air entry CVS S1 S2 + Extremities normal temperature General GI Soft Rectal deferred male - deferred Skin warm Musculoskeletal not moving Neurologically non verbal - on vent - Constitutional Vitals: Last Vital Signs Temp 98.5 F 03/19/19 04:00 Pulse 90 03/19/19 07:29 Resp 21 03/19/19 07:29 BP 119/54 03/19/19 07:24 Pulse Ox 94 03/19/19 07:24 - Labs Lab Results: Laboratory Results - last 24 hr 03/13/19 03/18/19 03/18/19 09:11 05:45 12:09 Add Manual Diff Complete Total Counted 100 Seg Neuts % (Manual) 0 L Band Neutrophils % 0 Lymphocytes % (Manual) 4.0 L Reactive Lymphs % (Man) 0 Monocytes % (Manual) 5.0 Eosinophils % (Manual) 0 Basophils % (Manual) 0 Metamyelocytes % 1.0 Myelocytes % 0 Promyelocytes % 0 Blast Cells % 90.0 Nucleated RBC % 1.0 H Seg Neutrophils # Man 0.0 L Band Neutrophils # 0.0 Lymphocytes # (Manual) 1.1 L Abs React Lymphs (Man) 0.0 Monocytes # (Manual) 1.4 H Eosinophils # (Manual) 0.0 Basophils # (Manual) 0.0 Metamyelocytes # 0.3 Myelocytes # 0.0 Promyelocytes # 0.0 Blast Cells # 0.0 WBC Morphology Not Reportable Hypersegmented Neuts Not Reportable Hyposegmented Neuts Not Reportable Hypogranular Neuts Not Reportable Smudge Cells Not Reportable Toxic Granulation Not Reportable Toxic Vacuolation Not Reportable Dohle Bodies Not Reportable Pelger-Huet Anomaly Not Reportable Roque Rods Not Reportable Platelet Estimate Consistent w auto Clumped Platelets Not Reportable Plt Clumps, EDTA Not Reportable Large Platelets Not Reportable Giant Platelets Not Reportable Platelet Satelliting Not Reportable Plt Morphology Comment Not Reportable RBC Morphology Not Reportable Dimorphic RBCs Not Reportable Polychromasia Few Hypochromasia Not Reportable Poikilocytosis Not Reportable Anisocytosis 1+ Microcytosis Few Macrocytosis Not Reportable Spherocytes Not Reportable Pappenheimer Bodies Not Reportable Sickle Cells Not Reportable Target Cells Not Reportable Tear Drop Cells Few Ovalocytes 1+ Helmet Cells Not Reportable [place] Bodies Not Reportable [place] Rings Not Reportable Violette Cells Not Reportable Bite Cells Not Reportable Crenated Cell Not Reportable Elliptocytes Not Reportable Acanthocytes (Spur) Few Rouleaux Not Reportable Hemoglobin C Crystals Not Reportable Schistocytes Not Reportable Malaria parasites Not Reportable Matt Bodies Not Reportable Hem Pathologist Commnt Sent to pathology POC ABG pH POC ABG pCO2 POC ABG pO2 POC ABG HCO3 POC ABG Total CO2 POC ABG O2 Sat POC ABG Base Excess FiO2 POC Glucose 258 H Uric Acid Lactate Dehydrogenase Proteinase 3 (PR3) Ab <1.0 Myeloperoxidase Ab <1.0 03/18/19 03/19/19 03/19/19 17:43 00:04 03:48 Add Manual Diff Total Counted Seg Neuts % (Manual) Band Neutrophils % Lymphocytes % (Manual) Reactive Lymphs % (Man) Monocytes % (Manual) Eosinophils % (Manual) Basophils % (Manual) Metamyelocytes % Myelocytes % Promyelocytes % Blast Cells % Nucleated RBC % Seg Neutrophils # Man Band Neutrophils # Lymphocytes # (Manual) Abs React Lymphs (Man) Monocytes # (Manual) Eosinophils # (Manual) Basophils # (Manual) Metamyelocytes # Myelocytes # Promyelocytes # Blast Cells # WBC Morphology Hypersegmented Neuts Hyposegmented Neuts Hypogranular Neuts Smudge Cells Toxic Granulation Toxic Vacuolation Dohle Bodies Pelger-Huet Anomaly Roque Rods Platelet Estimate Clumped Platelets Plt Clumps, EDTA Large Platelets Giant Platelets Platelet Satelliting Plt Morphology Comment RBC Morphology Dimorphic RBCs Polychromasia Hypochromasia Poikilocytosis Anisocytosis Microcytosis Macrocytosis Spherocytes Pappenheimer Bodies Sickle Cells Target Cells Tear Drop Cells Ovalocytes Helmet Cells [place] Bodies [place] Rings [place] Cells Bite Cells Crenated Cell Elliptocytes Acanthocytes (Spur) Rouleaux Hemoglobin C Crystals Schistocytes Malaria parasites Matt Bodies Hem Pathologist Commnt POC ABG pH 7.398 POC ABG pCO2 43.5 POC ABG pO2 80 POC ABG HCO3 26.8 POC ABG Total CO2 28 POC ABG O2 Sat 96 POC ABG Base Excess 2 FiO2 45 POC Glucose 252 H 215 H Uric Acid Lactate Dehydrogenase Proteinase 3 (PR3) Ab Myeloperoxidase Ab 03/19/19 03/19/19 06:15 06:17 Add Manual Diff Total Counted Seg Neuts % (Manual) Band Neutrophils % Lymphocytes % (Manual) Reactive Lymphs % (Man) Monocytes % (Manual) Eosinophils % (Manual) Basophils % (Manual) Metamyelocytes % Myelocytes % Promyelocytes % Blast Cells % Nucleated RBC % Seg Neutrophils # Man Band Neutrophils # Lymphocytes # (Manual) Abs React Lymphs (Man) Monocytes # (Manual) Eosinophils # (Manual) Basophils # (Manual) Metamyelocytes # Myelocytes # Promyelocytes # Blast Cells # WBC Morphology Hypersegmented Neuts Hyposegmented Neuts Hypogranular Neuts Smudge Cells Toxic Granulation Toxic Vacuolation Dohle Bodies Pelger-Huet Anomaly Roque Rods Platelet Estimate Clumped Platelets Plt Clumps, EDTA Large Platelets Giant Platelets Platelet Satelliting Plt Morphology Comment RBC Morphology Dimorphic RBCs Polychromasia Hypochromasia Poikilocytosis Anisocytosis Microcytosis Macrocytosis Spherocytes Pappenheimer Bodies Sickle Cells Target Cells Tear Drop Cells Ovalocytes Helmet Cells [place] Bodies [place] Rings Violette Cells Bite Cells Crenated Cell Elliptocytes Acanthocytes (Spur) Rouleaux Hemoglobin C Crystals Schistocytes Malaria parasites Matt Bodies Hem Pathologist Commnt POC ABG pH POC ABG pCO2 POC ABG pO2 POC ABG HCO3 POC ABG Total CO2 POC ABG O2 Sat POC ABG Base Excess FiO2 POC Glucose 301 H Uric Acid 4.0 Lactate Dehydrogenase 853 H Proteinase 3 (PR3) Ab Myeloperoxidase Ab Medications & Allergies - Medications Allergies/Adverse Reactions: Allergies No Known Allergies Allergy (Verified 03/10/19 17:37) Home Medications: Home Medications Medication Instructions Recorded Confirmed Last Taken Type Allopurinol [Zyloprim] 300 mg PO DAILY 03/10/19 03/10/19 Unknown History Aspirin [Adult Aspirin] 81 mg PO DAILY 03/10/19 03/10/19 Unknown History Atorvastatin [Lipitor Tab] 80 mg PO DAILY 03/10/19 03/10/19 Unknown History Carvedilol [Coreg] 12.5 mg PO BID 03/10/19 03/10/19 Unknown History Clopidogrel [Plavix] 75 mg PO DAILY 03/10/19 03/10/19 Unknown History Gabapentin [Neurontin] 300 mg PO BID 03/10/19 03/10/19 Unknown History Insulin Lispro Protamin/Lispro 33 unit SQ BID 03/10/19 03/10/19 Unknown History [Humalog Mix 75-25 Vial] Lisinopril [Zestril TAB] 10 mg PO DAILY 03/10/19 03/10/19 Unknown History Pantoprazole [Protonix] 40 mg PO DAILY 03/10/19 03/10/19 Unknown History Sitagliptin Phosphate [Januvia] 50 mg PO DAILY 03/10/19 03/10/19 Unknown History Active Medications: Generic Name Dose Route Start Last Admin Trade Name Freq PRN Reason Stop Dose Admin Acetaminophen 650 mg 03/11/19 00:40 03/17/19 16:45 Tylenol PO 650 mg Q4H PRN Administration Pain MILD(1-3)/Fever >100.5/[place] Acetaminophen 650 mg 03/11/19 00:40 03/12/19 04:53 Tylenol [place] 650 mg Q4H PRN Administration Pain MILD(1-3)/Fever >100.5/[place] Albumin Human 12.5 gm 03/13/19 09:29 Alburx 25% (Albumin) IV DUKE PRN Hypotension Albuterol 2.5 mg 03/17/19 16:00 03/19/19 07:29 Proventil IH 2.5 mg Q8HRT ROXANNE Administration Lipase/Protease/Amylase 1 each 03/15/19 13:[address] 10,500 Unit FEEDTUBE PRN PRN For Clogged Feeding Tube Dextrose 50 ml 03/11/19 00:44 D50w (25gm) Syringe IV PRN PRN Hypoglycemia Fentanyl 50 mcg 03/11/19 07:50 03/18/19 11:44 Sublimaze IV 50 mcg Q10MIN PRN Administration ANALGESIA Hydrophilic Ointment 1 applic 03/10/19 19:50 Vaseline Lip Therapy TP Q2HR PRN Dry Lips Propofol 1,000 mg in 100 mls @ 4.082 mls/hr 03/10/19 20:00 03/11/19 14:30 Diprivan 10 Mg/Ml IV Infused TITR ROXANNE Titration Protocol 5 MCG/KG/MIN Norepinephrine 4 mg in 250 mls @ 7.5 mls/hr 03/10/19 21:00 03/19/19 04:30 Levophed Drip 4 Mg/Ns 250 Ml IV 10 mcg/min TITR ROXANNE 37.5 mls/hr Titration Protocol 2 MCG/MIN Fentanyl Citrate 2,000 mcg in 100 mls @ 6.804 mls/hr 03/11/19 08:00 03/18/19 23:25 Fentanyl Drip Premix IV 1 mcg/kg/hr TITR ROXANNE 6.804 mls/hr Administration Protocol 1 MCG/KG/HR Ceftriaxone Sodium 2 gm in 100 mls @ 200 mls/hr 03/11/19 13:00 03/18/19 21:29 Rocephin/Ns 2 Gm/100 Ml IV 200 mls/hr Q12HR ROXANNE Administration Protocol Clindamycin HCl 900 mg in 50 mls @ 100 mls/hr 03/13/19 09:00 03/19/19 00:55 Cleocin 900 Mg/50 Ml IV 100 mls/hr Q8H ROXANNE Administration Sodium Chloride 100 mls @ 999 mls/hr 03/15/19 08:11 Nacl 0.9% IV DUKE PRN Hypotension Insulin Glargine 40 units 03/19/19 08:00 Lantus SUB-Q QAMDIAB ROXANNE Insulin Human Lispro 0 unit 03/11/19 06:00 03/19/19 06:45 Humalog SUB-Q 8 unit Q6HR ROAXNNE Administration Protocol Lansoprazole 30 mg 03/18/19 10:00 03/18/19 10:30 Prevacid Solutab FEEDTUBE 30 mg QDAY ROXANNE Administration Multi-Ingred Cream/Lotion/Oil/Oint 1 applic 03/10/19 19:50 Artificial Tears Ophth Oint OU Q4HR PRN Dry Eye(s) Ondansetron HCl 4 mg 03/11/19 00:40 Zofran IV Q8H PRN Nausea And Vomiting Simple Syrup 15 ml 03/15/19 13:21 Simple Syrup FEEDTUBE PRN PRN Hypoglycemia Simple Syrup 30 ml 03/15/19 13:21 Simple Syrup FEEDTUBE PRN PRN Hypoglycemia Sodium Bicarbonate 325 mg 03/15/19 13:21 Sodium Bicarbonate FEEDTUBE PRN PRN For Clogged Feeding Tube Sodium Chloride 10 ml 03/11/19 10:00 03/18/19 21:29 Sodium Chloride Flush Syringe 10 Ml IV 10 ml BID ROXANNE Administration Sodium Chloride 10 ml 03/11/19 00:40 Sodium Chloride Flush Syringe 10 Ml IV PRN PRN LINE FLUSH
[2019-03-19 08:51] LABS: Calcium 7.6 mg/dL (8.4-10.2)
[2019-03-19] MEDS: ROCEPHIN/NS 2 GM/100 ML 2 GM/100 ML BAG IV SCH ×2 (09:27→21:51)
[2019-03-19] MEDS: fentaNYL DRIP Premix 2,000 MCG/100 ML BAG IV SCH ×2 (09:27→20:05)
[2019-03-19] MEDS: LANTUS SUB-Q SCH (09:28)
[2019-03-19] MEDS: PREVACID SOLUTAB FEEDTUBE SCH (09:29)
[2019-03-19] MEDS: SODIUM CHLORIDE FLUSH SYRINGE 10 ML IV SCH (10:00)
--- NOTE | 2019-03-19 10:42 | Progress Note ---
Assessment and Plan - Patient Problems (1) Acute on chronic renal failure Current Visit: Yes Status: Acute Qualifiers: Chronic kidney disease stage: stage 3 (moderate) Plan to address problem: secondary to acute tubular necrosis in the setting of cardiac arrest, streptococcal bacteremia . Patient remains anuric. Volume status improved with additional isolated UF. cont HD on MWF schedule. renal US showed no acute abnormalities. UA noted for microscopic hematuria/proteinuria, so will need to r/o GN etiologies. complement levels are normal, ANCA studies pending. Overall prognosis guarded. (2) Hyperkalemia Current Visit: Yes Status: Acute Plan to address problem: K corrected with HD, cont 2g K renal diet (3) Cardiopulmonary arrest with successful resuscitation Current Visit: Yes Status: Acute Plan to address problem: ROSC in ER about 2 doses of epinephrine. Patient is on Levothroid at this time and cardiology evaluation has been reviewed and noted. Patient also had a repeat echocardiogram done and reviewed with EF 40-45% and impaired relaxation noted. We'll follow up with further recommendations from cardiology standpoint (4) Sepsis Current Visit: Yes Status: Acute Qualifiers: Sepsis type: Streptococcus group B Qualified Code(s): A40.1 - Sepsis due to streptococcus, group B Plan to address problem: Streptococcal bacteremia noted on initial blood cultures. cont ABXs as per ID recommendations, dose meds for HD. Vascath exchange as per vascular surgery. (5) Metabolic acidosis Current Visit: Yes Status: Acute Plan to address problem: corrected with HD (6) T2DM (type 2 diabetes mellitus) Current Visit: Yes Status: Acute Qualifiers: Diabetes mellitus intermediate card tender insulin use: unspecified intermediate card tender insulin use status Plan to address problem: diabetes management per primary attending. Subjective Date of service: 03/19/19 Principal diagnosis: severe sepsis Interval history: Pt remains intubated, comatose, BP stable off levo Objective - Vital Signs Vital signs: Vital Signs - 12hr 03/18/19 03/18/19 03/19/19 23:00 23:30 00:00 Temperature 99.1 F Pulse Rate 85 89 88 Pulse Rate [ Anterior Bilateral Throughout] Respiratory 23 22 23 Rate Respiratory Rate [Anterior Bilateral Throughout] Blood Pressure 119/46 128/38 110/46 O2 Sat by Pulse 90 93 94 Oximetry 03/19/19 03/19/19 03/19/19 00:06 00:18 00:28 Temperature Pulse Rate 88 Pulse Rate [ 88 87 Anterior Bilateral Throughout] Respiratory Rate Respiratory 22 22 Rate [Anterior Bilateral Throughout] Blood Pressure 110/46 O2 Sat by Pulse 96 Oximetry 03/19/19 03/19/19 03/19/19 00:30 01:00 01:30 Temperature Pulse Rate 87 89 85 Pulse Rate [ Anterior Bilateral Throughout] Respiratory 24 24 22 Rate Respiratory Rate [Anterior Bilateral Throughout] Blood Pressure 129/37 129/61 120/36 O2 Sat by Pulse 95 95 94 Oximetry 03/19/19 03/19/19 03/19/19 02:00 02:30 03:00 Temperature Pulse Rate 88 91 H 94 H Pulse Rate [ Anterior Bilateral Throughout] Respiratory 22 25 H 22 Rate Respiratory Rate [Anterior Bilateral Throughout] Blood Pressure 127/32 97/42 127/29 O2 Sat by Pulse 95 96 Oximetry 03/19/19 03/19/19 03/19/19 03:24 03:30 04:00 Temperature 98.5 F Pulse Rate 91 H 91 H 89 Pulse Rate [ Anterior Bilateral Throughout] Respiratory 22 24 Rate Respiratory Rate [Anterior Bilateral Throughout] Blood Pressure 129/62 121/41 131/23 O2 Sat by Pulse 94 93 96 Oximetry 03/19/19 03/19/19 03/19/19 04:30 05:00 05:30 Temperature Pulse Rate 85 87 83 Pulse Rate [ Anterior Bilateral Throughout] Respiratory 20 22 20 Rate Respiratory Rate [Anterior Bilateral Throughout] Blood Pressure 112/55 132/43 109/48 O2 Sat by Pulse 93 93 94 Oximetry 03/19/19 03/19/19 03/19/19 06:00 06:30 07:00 Temperature Pulse Rate 84 91 H 92 H Pulse Rate [ Anterior Bilateral Throughout] Respiratory 20 21 20 Rate Respiratory Rate [Anterior Bilateral Throughout] Blood Pressure 124/50 124/51 114/50 O2 Sat by Pulse 93 93 94 Oximetry 03/19/19 03/19/19 03/19/19 07:24 07:29 07:30 Temperature Pulse Rate 90 90 Pulse Rate [ 90 Anterior Bilateral Throughout] Respiratory 21 Rate Respiratory 21 Rate [Anterior Bilateral Throughout] Blood Pressure 119/54 119/54 O2 Sat by Pulse 94 93 Oximetry 03/19/19 03/19/19 03/19/19 08:00 08:30 09:00 Temperature 97.8 F Pulse Rate 89 89 90 Pulse Rate [ Anterior Bilateral Throughout] Respiratory 20 21 20 Rate Respiratory Rate [Anterior Bilateral Throughout] Blood Pressure 97/44 94/43 118/35 O2 Sat by Pulse 95 94 94 Oximetry - General Appearance General appearance: well-developed, obese, intubated, comatose EENT: ATNC, mucous membranes moist Neck: no JVD Respiratory: Present: Decreased Breath Sounds Cardiology: regular, S1S2 Gastrointestinal: normoactive bowel sounds, obese Integumentary: no rash, other (+ edema b/l LE ) Neurologic: other (comatose, intubated ) - Lab 03/18/19 05:45 03/19/19 06:15 Most recent lab results Calcium 7.6 mg/dL (8.4-10.2) L 03/19/19 06:15 Magnesium 1.80 mg/dL (1.7-2.3) 03/17/19 05:30 Medications & Allergies - Medications Allergies/Adverse Reactions: Allergies No Known Allergies Allergy (Verified 03/10/19 17:37) Home Medications: Home Medications Medication Instructions Recorded Confirmed Last Taken Type Allopurinol [Zyloprim] 300 mg PO DAILY 03/10/19 03/10/19 Unknown History Aspirin [Adult Aspirin] 81 mg PO DAILY 03/10/19 03/10/19 Unknown History Atorvastatin [Lipitor Tab] 80 mg PO DAILY 03/10/19 03/10/19 Unknown History Carvedilol [Coreg] 12.5 mg PO BID 03/10/19 03/10/19 Unknown History Clopidogrel [Plavix] 75 mg PO DAILY 03/10/19 03/10/19 Unknown History Gabapentin [Neurontin] 300 mg PO BID 03/10/19 03/10/19 Unknown History Insulin Lispro Protamin/Lispro 33 unit SQ BID 03/10/19 03/10/19 Unknown History [Humalog Mix 75-25 Vial] Lisinopril [Zestril TAB] 10 mg PO DAILY 03/10/19 03/10/19 Unknown History Pantoprazole [Protonix] 40 mg PO DAILY 03/10/19 03/10/19 Unknown History Sitagliptin Phosphate [Januvia] 50 mg PO DAILY 03/10/19 03/10/19 Unknown History Active Medications: Generic Name Dose Route Start Last Admin Trade Name Freq PRN Reason Stop Dose Admin Acetaminophen 650 mg 03/11/19 00:40 03/17/19 16:45 Tylenol PO 650 mg Q4H PRN Administration Pain MILD(1-3)/Fever >100.5/[place] Acetaminophen 650 mg 03/11/19 00:40 03/12/19 04:53 Tylenol [place] 650 mg Q4H PRN Administration Pain MILD(1-3)/Fever >100.5/[place] Albumin Human 12.5 gm 03/13/19 09:29 Alburx 25% (Albumin) IV DUKE PRN Hypotension Albuterol 2.5 mg 03/17/19 16:00 03/19/19 07:29 Proventil IH 2.5 mg Q8HRT ROXANNE Administration Lipase/Protease/Amylase 1 each 03/15/19 13:[address] 10,500 Unit FEEDTUBE PRN PRN For Clogged Feeding Tube Dextrose 50 ml 03/11/19 00:44 D50w (25gm) Syringe IV PRN PRN Hypoglycemia Fentanyl 50 mcg 03/11/19 07:50 03/18/19 11:44 Sublimaze IV 50 mcg Q10MIN PRN Administration ANALGESIA Hydrophilic Ointment 1 applic 03/10/19 19:50 Vaseline Lip Therapy TP Q2HR PRN Dry Lips Propofol 1,000 mg in 100 mls @ 4.082 mls/hr 03/10/19 20:00 03/11/19 14:30 Diprivan 10 Mg/Ml IV Infused TITR ROXANNE Titration Protocol 5 MCG/KG/MIN Norepinephrine 4 mg in 250 mls @ 7.5 mls/hr 03/10/19 21:00 03/19/19 04:30 Levophed Drip 4 Mg/Ns 250 Ml IV 10 mcg/min TITR ROXANNE 37.5 mls/hr Titration Protocol 2 MCG/MIN Fentanyl Citrate 2,000 mcg in 100 mls @ 6.804 mls/hr 03/11/19 08:00 03/19/19 09:27 Fentanyl Drip Premix IV 1 mcg/kg/hr TITR ROXANNE 6.804 mls/hr Administration Protocol 1 MCG/KG/HR Ceftriaxone Sodium 2 gm in 100 mls @ 200 mls/hr 03/11/19 13:00 03/19/19 09:27 Rocephin/Ns 2 Gm/100 Ml IV 200 mls/hr Q12HR ROXANNE Administration Protocol Clindamycin HCl 900 mg in 50 mls @ 100 mls/hr 03/13/19 09:00 03/19/19 09:29 Cleocin 900 Mg/50 Ml IV 100 mls/hr Q8H ROXANNE Administration Sodium Chloride 100 mls @ 999 mls/hr 03/15/19 08:11 Nacl 0.9% IV DUKE PRN Hypotension Insulin Glargine 40 units 03/19/19 08:00 03/19/19 09:28 Lantus SUB-Q 40 units QAMDIAB ROXANNE Administration Insulin Human Lispro 0 unit 03/11/19 06:00 03/19/19 06:45 Humalog SUB-Q 8 unit Q6HR ROXANNE Administration Protocol Lansoprazole 30 mg 03/18/19 10:00 03/19/19 09:29 Prevacid Solutab FEEDTUBE 30 mg QDAY ROXANNE Administration Multi-Ingred Cream/Lotion/Oil/Oint 1 applic 03/10/19 19:50 Artificial Tears Ophth Oint OU Q4HR PRN Dry Eye(s) Ondansetron HCl 4 mg 03/11/19 00:40 Zofran IV Q8H PRN Nausea And Vomiting Simple Syrup 15 ml 03/15/19 13:21 Simple Syrup FEEDTUBE PRN PRN Hypoglycemia Simple Syrup 30 ml 03/15/19 13:21 Simple Syrup FEEDTUBE PRN PRN Hypoglycemia Sodium Bicarbonate 325 mg 03/15/19 13:21 Sodium Bicarbonate FEEDTUBE PRN PRN For Clogged Feeding Tube Sodium Chloride 10 ml 03/11/19 10:00 03/18/19 21:29 Sodium Chloride Flush Syringe 10 Ml IV 10 ml BID ROXANNE Administration Sodium Chloride 10 ml 03/11/19 00:40 Sodium Chloride Flush Syringe 10 Ml IV PRN PRN LINE FLUSH
--- NOTE | 2019-03-19 11:10 | Progress Note ---
Assessment and Plan Cultures: Blood culture 03/10/2019 Group-A Strep 2 of 4 bottles Tracheal asp 03/10/2019 poor specimen Blood culture 03/12/2019 no growth today C diff negative 03/14/2019 trach aspirate culture: no growth in 24 hours Assessment: 54 y/o male with history of diabetes, hypertension, chronic kidney disease, coronary artery disease admitted on 03/10/2019 due to a week history of facial/mouth pain (?dental pain) associated with generalized weakness, cold sensation, cough with sputum production and body aches, 48 hour-history of sore throat, in the ED patient went into PEA arrest s/p CPR: 1) Severe Sepsis with PEA arrest and transient shock post arrest: Etiology li priyanka due to GAS bacteremia. CXR and CT chest no consolidations. 2) Invasive Group-A Strep bacteremia/toxic shock syndrome: source unclear ?tonsillopharingitis, ?dental abscess, ?early aspiration pneumonia. Blood culture 03/10/2019 Group-A Strep [address] face showed a small right mandibular premolar abscess, poor dentition and chronic sinusitis. TTE no vegetations. 3) Acute encephalopathy: not better; post arrest +/- due to infection ? ischemic brain injury. CT head some indistinctness and loss of dean-white matter differentiation and indistinct visualization of the basal ganglia. This is nonspecific finding but may be seen with diffuse hypoxic ischemic brain injury. 4) Acute respiratory failure: intubated. CT chest without contrast shows pericardial effusion measuring up to 1.4 cm in transverse diameter, posterior atelectasis both lungs. Minimal pleural fluid collection. 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 Dr. Cleaning following. 6) ISMAEL on CKD: renally adjusted meds. Now on HD through fem vas cath 7) Elevated LFTs: probably from shock and sepsis. Recommendations: - discontinued clindamycin - continue IV Ceftriaxone, complete total 14 days - f/u peripheral blood flow cytometry per hematology oncology given findings of 90% peripheral blasts - Overall, guarded prognosis Dimple Horton MD [facility] C: [phone] O: [phone] F: [phone] Subjective Date of service: 03/19/19 Principal diagnosis: severe sepsis Interval history: Remains intubated, comatose. Had evaluation by Hem/Onc. Objective - Exam Narrative Exam: Physical Exam: Constitutional: intubated. Obese Head, Ears, Nose: Normocephalic, atraumatic. External ears, nose normal Eyes: Conjunctivae/corneas clear. No icterus. No ptosis. Neck: intubated Oral: intubated Cardiovascular: S1, S2 normal. Respiratory: Good air entry, clear to auscultation bilaterally GI: Soft, non-tender; bowel sounds normal. No peritoneal signs Musculoskeletal: 1+ pedal edema. Obese Skin: No rash or abscess. Superficial wounds on sacral region Hem/Lymphatic: No palpable cervical or supraclavicular nodes. No lymphangitis Psych: no agitation Neurological: intubated, on vent - Constitutional Vitals: Vital Signs Temp Pulse Resp BP Pulse Ox 97.8 F 90 20 118/35 94 03/19/19 08:00 03/19/19 09:00 03/19/19 09:00 03/19/19 09:00 03/19/19 09:00 Temperature -Last 24 Hours Temperature 97.8 F Temperature 98.5 F Temperature 99.1 F Temperature 98.3 F Temperature 98.7 F Temperature 99.8 F Temperature 99.8 F Temperature 99.4 F - Labs CBC & Chem 7: 03/18/19 05:45 03/19/19 06:15 Labs: Abnormal lab results 03/18/19 03/18/19 03/19/19 Range/Units 12:09 17:43 00:04 Chloride (98-107) mmol/L BUN (9-20) mg/dL Creatinine (0.8-1.5) mg/dL Glucose (75-100) mg/dL POC Glucose 258 H 252 H 215 H (70-105) Calcium (8.4-10.2) mg/dL Lactate Dehydrogenase (91-180) units/L 03/19/19 03/19/19 03/19/19 Range/Units 06:15 06:15 06:17 Chloride 96.7 L (98-107) mmol/L BUN 60 H (9-20) mg/dL Creatinine 5.4 H (0.8-1.5) mg/dL Glucose 249 H (75-100) mg/dL POC Glucose 301 H (70-105) Calcium 7.6 L (8.4-10.2) mg/dL Lactate Dehydrogenase 853 H (91-180) units/L
[2019-03-19] MEDS: PROAMATINE PO SCH (17:00)
--- NOTE | 2019-03-19 22:59 | XRay Report ---
CHEST 1 VIEW 10:32 PM INDICATION / CLINICAL INFORMATION: aspiration. Respiratory failure. COMPARISON: Earlier today at 2:03 AM. FINDINGS: SUPPORT DEVICES: The positions of the endotracheal tube, nasogastric tube and left jugular CVL have n ot changed. HEART / MEDIASTINUM: Cardiomegaly is stable. LUNGS / PLEURA: Mild interstitial edema has improved. Pleuroparenchymal opacity in the left hemithora x medially appears mildly increased. No pneumothorax. ADDITIONAL FINDINGS: No significant additional findings. IMPRESSION: Pleuroparenchymal opacity in the left hemithorax centrally has increased. The findings co uld be related to aspiration pneumonia but are nonspecific. Signer Name: Guzman Amor MD Signed: 03/19/2019 10:55 PM Workstation Name: [id number]
[2019-03-20] MEDS: HumaLOG SUB-Q SCH ×4 (01:09→18:08)
[2019-03-20] MEDS: fentaNYL DRIP Premix 2,000 MCG/100 ML BAG IV SCH (02:29)
[2019-03-20] MEDS: LEVOPHED DRIP 4 MG/NS 250 ML 4 MG/250 ML BAG IV SCH ×4 (04:31→17:18)
[2019-03-20 05:19] LABS: Hematocrit 24.1 % (35.5-45.6); Mean Corpuscular HGB Conc 33 % (32-34); Mean Corpuscular Volume 96 fl (84-94); Red Blood Count 2.51 M/mm3 (3.65-5.03); Red Cell Distribution Width 18.2 % (13.2-15.2)
[2019-03-20 05:31] LABS: Platelet Count 51 K/mm3 (140-440)
[2019-03-20 05:35] LABS: Calcium 7.8 mg/dL (8.4-10.2)
--- NOTE | 2019-03-20 07:28 | Progress Note ---
Assessment and Plan - Patient Problems (1) Acute on chronic renal failure Current Visit: Yes Status: Acute Qualifiers: Chronic kidney disease stage: stage 3 (moderate) Plan to address problem: Likely secondary to acute tubular necrosis in the setting of cardiac arrest, streptococcal bacteremia . Patient remains anuric. ANCA studies negative, complements within normal limits. Will plan for next HD session tomorrow. (2) Hyperkalemia Current Visit: Yes Status: Acute Plan to address problem: Potassium levels stabilized on dialysis. (3) Cardiopulmonary arrest with successful resuscitation Current Visit: Yes Status: Acute Plan to address problem: Return of spontaneous circulation in the emergency room about 2 doses of epi nephrine. Patient is on Levothroid at this time and cardiology evaluation has been reviewed and noted. Patient also had a repeat echocardiogram done and reviewed with EF 40-45% and impaired relaxation noted. We'll follow up with further recommendations from cardiology standpoint. (4) Sepsis Current Visit: Yes Status: Acute Qualifiers: Sepsis type: Streptococcus group B Qualified Code(s): A40.1 - Sepsis due to streptococcus, group B Plan to address problem: Streptococcal bacteremia noted on initial blood cultures. Patient is on the antibiotics at this time per infectious disease recommendations. Please ensure that antibiotics are dosed appropriately for his decreased creatinine clearance and renal function. (5) Metabolic acidosis Current Visit: Yes Status: Acute Plan to address problem: Will address with hemodialysis. Bicarbonate gtt has been discontinued. (6) Hypotension Current Visit: Yes Status: Acute Qualifiers: Hypotension type: unspecified hypotension type Qualified Code(s): I95.9 - Hypotension, unspecified Plan to address problem: Patient continues on appropriate pressor support. Agree with holding any antihypertensive medication at this time given his hemodynamic instability. We'll continue to monitor closely. (7) Type 2 diabetes mellitus with diabetic chronic kidney disease Current Visit: Yes Status: Acute Qualifiers: Chronic kidney disease stage: stage 3 (moderate) Plan to address problem: diabetes management per primary attending. Subjective Date of service: 03/20/19 Principal diagnosis: severe sepsis Interval history: No acute changes. Remains intubated, unresponsive, on pressor support with levophed at 14 mcg/kg.min. Tolerated HD with UF 3L yesterday. Objective - Vital Signs Vital signs: Vital Signs - 12hr 03/19/19 03/19/19 03/19/19 19:30 20:00 20:30 Temperature 99.8 F H Pulse Rate 90 89 91 H Pulse Rate [ 90 Anterior Bilateral Throughout] Respiratory 15 15 15 Rate Respiratory 15 Rate [Anterior Bilateral Throughout] Blood Pressure 109/45 110/59 111/53 O2 Sat by Pulse 90 91 95 Oximetry 03/19/19 03/19/19 03/19/19 21:00 21:30 22:00 Temperature Pulse Rate 95 H 95 H 93 H Pulse Rate [ Anterior Bilateral Throughout] Respiratory 16 16 15 Rate Respiratory Rate [Anterior Bilateral Throughout] Blood Pressure 111/53 127/37 105/34 O2 Sat by Pulse 87 88 85 Oximetry 03/19/19 03/19/19 03/19/19 22:30 23:00 23:11 Temperature Pulse Rate 90 86 88 Pulse Rate [ Anterior Bilateral Throughout] Respiratory 10 L 12 Rate Respiratory Rate [Anterior Bilateral Throughout] Blood Pressure 92/26 108/45 111/49 O2 Sat by Pulse 87 91 90 Oximetry 03/19/19 03/19/19 03/19/19 23:22 23:30 23:40 Temperature Pulse Rate 86 85 85 Pulse Rate [ Anterior Bilateral Throughout] Respiratory 13 12 13 Rate Respiratory Rate [Anterior Bilateral Throughout] Blood Pressure 119/42 113/54 113/54 O2 Sat by Pulse 93 93 92 Oximetry 03/20/19 03/20/19 03/20/19 00:00 00:30 01:00 Temperature 99.6 F Pulse Rate 86 86 85 Pulse Rate [ Anterior Bilateral Throughout] Respiratory 12 11 L 12 Rate Respiratory Rate [Anterior Bilateral Throughout] Blood Pressure 119/42 109/36 113/21 O2 Sat by Pulse 92 95 96 Oximetry 03/20/19 03/20/19 03/20/19 01:30 02:00 02:30 Temperature Pulse Rate 86 89 89 Pulse Rate [ Anterior Bilateral Throughout] Respiratory 12 12 12 Rate Respiratory Rate [Anterior Bilateral Throughout] Blood Pressure 99/17 111/37 110/48 O2 Sat by Pulse 97 97 97 Oximetry 03/20/19 03/20/19 03/20/19 03:00 03:30 03:43 Temperature Pulse Rate 89 94 H Pulse Rate [ Anterior Bilateral Throughout] Respiratory 12 Rate Respiratory Rate [Anterior Bilateral Throughout] Blood Pressure 114/50 109/49 111/61 O2 Sat by Pulse 98 96 Oximetry 03/20/19 03/20/19 03/20/19 04:00 04:30 05:00 Temperature 99.4 F Pulse Rate 92 H 91 H 86 Pulse Rate [ Anterior Bilateral Throughout] Respiratory 12 12 12 Rate Respiratory Rate [Anterior Bilateral Throughout] Blood Pressure 118/68 90/26 123/21 O2 Sat by Pulse 93 96 97 Oximetry 03/20/19 03/20/19 05:30 06:00 Temperature Pulse Rate 84 84 Pulse Rate [ Anterior Bilateral Throughout] Respiratory 12 11 L Rate Respiratory Rate [Anterior Bilateral Throughout] Blood Pressure 96/21 123/16 O2 Sat by Pulse 97 97 Oximetry - General Appearance General appearance: obese, chronically ill, intubated, frail EENT: ATNC Neck: no thyromegaly Respiratory: Present: Decreased Breath Sounds Cardiology: regular, S1S2 Gastrointestinal: normal, normoactive bowel sounds Integumentary: no rash, warm and dry Neurologic: other (unresponsive ) Musculoskeletal: other (+edema ) - Lab 03/20/19 04:45 03/20/19 04:45 Most recent lab results Calcium 7.8 mg/dL (8.4-10.2) L 03/20/19 04:45 Magnesium 1.80 mg/dL (1.7-2.3) 03/17/19 05:30 - Allied health notes Allied health notes reviewed: nursing Medications & Allergies - Medications Allergies/Adverse Reactions: Allergies No Known Allergies Allergy (Verified 03/10/19 17:37) Home Medications: Home Medications Medication Instructions Recorded Confirmed Last Taken Type Allopurinol [Zyloprim] 300 mg PO DAILY 03/10/19 03/10/19 Unknown History Aspirin [Adult Aspirin] 81 mg PO DAILY 03/10/19 03/10/19 Unknown History Atorvastatin [Lipitor Tab] 80 mg PO DAILY 03/10/19 03/10/19 Unknown History Carvedilol [Coreg] 12.5 mg PO BID 03/10/19 03/10/19 Unknown History Clopidogrel [Plavix] 75 mg PO DAILY 03/10/19 03/10/19 Unknown History Gabapentin [Neurontin] 300 mg PO BID 03/10/19 03/10/19 Unknown History Insulin Lispro Protamin/Lispro 33 unit SQ BID 03/10/19 03/10/19 Unknown History [Humalog Mix 75-25 Vial] Lisinopril [Zestril TAB] 10 mg PO DAILY 03/10/19 03/10/19 Unknown History Pantoprazole [Protonix] 40 mg PO DAILY 03/10/19 03/10/19 Unknown History Sitagliptin Phosphate [Januvia] 50 mg PO DAILY 03/10/19 03/10/19 Unknown History Active Medications: Generic Name Dose Route Start Last Admin Trade Name Freq PRN Reason Stop Dose Admin Acetaminophen 650 mg 03/11/19 00:40 03/17/19 16:45 Tylenol PO 650 mg Q4H PRN Administration Pain MILD(1-3)/Fever >100.5/[place] Acetaminophen 650 mg 03/11/19 00:40 03/12/19 04:53 Tylenol IA 650 mg Q4H PRN Administration Pain MILD(1-3)/Fever >100.5/[place] Albumin Human 12.5 gm 03/13/19 09:29 Alburx 25% (Albumin) IV DUKE PRN Hypotension Albuterol 2.5 mg 03/17/19 16:00 03/19/19 23:04 Proventil IH Not Given Q8HRT ROXANNE Lipase/Protease/Amylase 1 each 03/15/19 13:[address] 10,500 Unit FEEDTUBE PRN PRN For Clogged Feeding Tube Dextrose 50 ml 03/11/19 00:44 D50w (25gm) Syringe IV PRN PRN Hypoglycemia Fentanyl 50 mcg 03/11/19 07:50 03/18/19 11:44 Sublimaze IV 50 mcg Q10MIN PRN Administration ANALGESIA Hydrophilic Ointment 1 applic 03/10/19 19:50 Vaseline Lip Therapy TP Q2HR PRN Dry Lips Propofol 1,000 mg in 100 mls @ 4.082 mls/hr 03/10/19 20:00 03/11/19 14:30 Diprivan 10 Mg/Ml IV Infused TITR ROXANNE Titration Protocol 5 MCG/KG/MIN Norepinephrine 4 mg in 250 mls @ 7.5 mls/hr 03/10/19 21:00 03/20/19 04:45 Levophed Drip 4 Mg/Ns 250 Ml IV 14 mcg/min TITR ROXANNE 52.5 mls/hr Titration Protocol 2 MCG/MIN Fentanyl Citrate 2,000 mcg in 100 mls @ 6.804 mls/hr 03/11/19 08:00 03/20/19 02:29 Fentanyl Drip Premix IV 2 mcg/kg/hr TITR ROXANNE 13.608 mls/hr Administration Protocol 1 MCG/KG/HR Ceftriaxone Sodium 2 gm in 100 mls @ 200 mls/hr 03/11/19 13:00 03/19/19 21:51 Rocephin/Ns 2 Gm/100 Ml IV 200 mls/hr Q12HR ROXANNE Administration Protocol Sodium Chloride 100 mls @ 999 mls/hr 03/15/19 08:11 Nacl 0.9% IV DUKE PRN Hypotension Insulin Glargine 40 units 03/19/19 08:00 03/19/19 09:28 Lantus SUB-Q 40 units QAMDIAB ROXANNE Administration Insulin Human Lispro 0 unit 03/11/19 06:00 03/20/19 06:46 Humalog SUB-Q 6 unit Q6HR ROXANNE Administration Protocol Lansoprazole 30 mg 03/18/19 10:00 03/19/19 09:29 Prevacid Solutab FEEDTUBE 30 mg QDAY ROXANNE Administration Midodrine 10 mg 03/19/19 16:00 03/19/19 17:00 Proamatine PO 10 mg TID@0800,1200,1600 ROXANNE Administration Multi-Ingred Cream/Lotion/Oil/Oint 1 applic 03/10/19 19:50 Artificial Tears Ophth Oint OU Q4HR PRN Dry Eye(s) Ondansetron HCl 4 mg 03/11/19 00:40 03/19/19 21:53 Zofran IV 4 mg Q8H PRN Administration Nausea And Vomiting Simple Syrup 15 ml 03/15/19 13:21 Simple Syrup FEEDTUBE PRN PRN Hypoglycemia Simple Syrup 30 ml 03/15/19 13:21 Simple Syrup FEEDTUBE PRN PRN Hypoglycemia Sodium Bicarbonate 325 mg 03/15/19 13:21 Sodium Bicarbonate FEEDTUBE PRN PRN For Clogged Feeding Tube Sodium Chloride 10 ml 03/11/19 10:00 03/19/19 10:00 Sodium Chloride Flush Syringe 10 Ml IV 10 ml BID ROXANNE Administration Sodium Chloride 10 ml 03/11/19 00:40 Sodium Chloride Flush Syringe 10 Ml IV PRN PRN LINE FLUSH
[2019-03-20] MEDS: LANTUS SUB-Q SCH (07:44)
[2019-03-20] MEDS: PROAMATINE PO SCH ×3 (07:54→16:20)
--- NOTE | 2019-03-20 07:56 | Progress Note ---
Assessment and Plan -s/p Cardiopulmonary arrest with ROSC -Acute on chronic hypoxemic respiratory failure on MVS -Severe sepsis with septic shock - Streptococcal -Acute on chronic renal failure (multifactorial) -Acute metabolic-toxic encephalopathy -Morbid obesity -h/o CAD s/p 2 stents -Pancytopenia- probably secondary to sepsis and underlying chronic liver disease -Type 2 DM -h/o Alcohol abuse disorder -EEG pending -Stress dose steroids for possible sepsis induced relative adrenal insufficiency( 5 days of therapy then disconitnue) -Lung protective strategies -Serial CXR and ABG -VAP bundle addressed -Critical care bundles addressed -Daily SATs and SBTs as tolerated -Supplemental oxygen to keep O2 sats 90-92% -Bronchodilators -Accuchecks with glycemic control. Target blood glucose <180mg/dL -Enteric nutrition with aspiration precautions, HOB>40 -Agitation management -Titrate sedation to RAAS 0 to -1 -Prevention of delirium, maintenance of sleep-wake cycle -Antibiotic therapy per ID -Trend hematologic indices -Avoid nephrotoxic agents, adjust all antibiotics and medications for CrCL and GFR -VTE ( SCDs) and Stress ulcer prophylaxis CONDITION: CRITICAL PROGNOSIS: GUARDED CODE STATUS: FULL CODE Discussed extensively with the patient's daughter and his sister who were at the bedside. All their questions were answered. Discussed with the Renal service and with RT/RN The high probability of a clinically significant, sudden or life-threatening deterioration of the [respiratory, cardiovascular, renal, neurology] system(s) required my full and direct attention, intervention and personal management. The aggregate critical care time was [35 ] minutes without overlap. Time includes spent on; [x] Data Review and interpretation [x] Patient assessment and monitoring of vital signs [x] Documentation [x] Medication orders and management Subjective Date of service: 03/20/19 Principal diagnosis: severe sepsis Interval history: Patient is seen today for: s/p cardiopulmonary arrest, acute hypoxemic respiratory failure, ISMAEL, Severe hyperkalemia, Severe sepsis; ISMAEL onCKD on HD Seen and examined at bedside; 24hour events reviewed; nursing and respiratory care staff consulted; no adverse overnight events reported to me; vitals, labs, medications, chart reviewed. Temperature spike to 100.4, no vomiting, opens eyes spontaneously Remains critically ill. On full mechanical ventilatory support AC 12/450/6/35% ABG 7.50/34/86/26 Off bicarbonate infusion s/p 3 sessions of daily HD. Tolerated PSV trials yesterday ETT 7.5cm at 23cm at the lip. Off fentanyl infusion, remains unresponsive Off vasopressor support Discussed with RT/RN at the bedside Objective Vital Signs - 12hr 03/19/19 03/19/19 03/19/19 20:00 20:30 21:00 Temperature 99.8 F H Pulse Rate 89 91 H 95 H Respiratory 15 15 16 Rate Blood Pressure 110/59 111/53 111/53 O2 Sat by Pulse 91 95 87 Oximetry 03/19/19 03/19/19 03/19/19 21:30 22:00 22:30 Temperature Pulse Rate 95 H 93 H 90 Respiratory 16 15 10 L Rate Blood Pressure 127/37 105/34 92/26 O2 Sat by Pulse 88 85 87 Oximetry 03/19/19 03/19/19 03/19/19 23:00 23:11 23:22 Temperature Pulse Rate 86 88 86 Respiratory 12 13 Rate Blood Pressure 108/45 111/49 119/42 O2 Sat by Pulse 91 90 93 Oximetry 03/19/19 03/19/19 03/20/19 23:30 23:40 00:00 Temperature 99.6 F Pulse Rate 85 85 86 Respiratory 12 13 12 Rate Blood Pressure 113/54 113/54 119/42 O2 Sat by Pulse 93 92 92 Oximetry 03/20/19 03/20/19 03/20/19 00:30 01:00 01:30 Temperature Pulse Rate 86 85 86 Respiratory 11 L 12 12 Rate Blood Pressure 109/36 113/21 99/17 O2 Sat by Pulse 95 96 97 Oximetry 03/20/19 03/20/19 03/20/19 02:00 02:30 03:00 Temperature Pulse Rate 89 89 89 Respiratory 12 12 12 Rate Blood Pressure 111/37 110/48 114/50 O2 Sat by Pulse 97 97 98 Oximetry 03/20/19 03/20/19 03/20/19 03:30 03:43 04:00 Temperature 99.4 F Pulse Rate 94 H 92 H Respiratory 12 Rate Blood Pressure 109/49 111/61 118/68 O2 Sat by Pulse 96 93 Oximetry 03/20/19 03/20/19 03/20/19 04:30 05:00 05:30 Temperature Pulse Rate 91 H 86 84 Respiratory 12 12 12 Rate Blood Pressure 90/26 123/21 96/21 O2 Sat by Pulse 96 97 97 Oximetry 03/20/19 03/20/19 06:00 07:55 Temperature 99.2 F Pulse Rate 84 Respiratory 11 L Rate Blood Pressure 123/16 O2 Sat by Pulse 97 Oximetry Constitutional: no acute distress, other (m,iddle aged morbidly obese CM, normocephalic with mildly increased resp effort at rest on MVS) Eyes: non-icteric ENT: oropharynx moist, other (ETT 7.5 at 23 cm at the lip) Neck: supple, no lymphadenopathy, no JVD, other (large neck circumference) Effort: mildly labored Ascultation: Bilateral: diminished breath sounds, rhonchi (bases) Percussion: Bilateral: not dull Cardiovascular: regular rate and rhythm, other (No R/M) Gastrointestinal: normoactive bowel sounds, soft, non-tender, non-distended Integumentary: normal Extremities: no cyanosis, pink and warm, pulses normal, no ischemia or petechiae Neurologic: pupils equal and round, unable to assess, other (Encephalopathic) Psychiatric: other (unable to assess) CBC and BMP: 03/20/19 04:45 03/20/19 04:45 ABG, PT/INR, D-dimer: ABG POC ABG pH 7.398 (7.35-7.45) 03/19/19 03:48 POC ABG pCO2 43.5 (35-45) 03/19/19 03:48 POC ABG pO2 80 (80-105) 03/19/19 03:48 POC ABG HCO3 26.8 (22-26 mml/L) 03/19/19 03:48 POC ABG Total CO2 28 (23-27mmol/L) 03/19/19 03:48 POC ABG O2 Sat 96 03/19/19 03:48 PT/INR, D-dimer PT 14.4 Sec. (12.2-14.9) 03/10/19 17:57 INR 1.15 (0.87-1.13) H 03/10/19 17:57 Abnormal lab findings: Abnormal Labs 03/10/19 03/10/19 03/10/19 17:57 17:57 17:57 WBC 1.2 L* RBC 2.46 L Hgb 7.9 L Hct 23.2 L MCV MCHC RDW 18.2 H Plt Count 47 L [place] # 0.9 H Seg Neuts % (Manual) 6.0 L Lymphocytes % (Manual) 74.0 H Monocytes % (Manual) 20.0 H Nucleated RBC % Seg Neutrophils # 0.1 L Seg Neutrophils # Man 0.1 L Lymphocytes # (Manual) 0.9 L Monocytes # (Manual) INR POC ABG pH POC ABG pCO2 POC ABG pO2 Potassium Chloride Carbon Dioxide BUN 46 H Creatinine 2.9 H Glucose 200 H POC Glucose Lactic Acid 2.50 H* Calcium 7.6 L Total Bilirubin AST ALT Lactate Dehydrogenase Total Creatine Kinase CK-MB (CK-2) Troponin T Total Protein Albumin 3.2 L Cholesterol LDL Cholesterol Direct HDL Cholesterol Urine WBC (Auto) Crossmatch 03/10/19 03/10/19 03/10/19 17:57 18:01 18:52 WBC RBC Hgb Hct MCV MCHC RDW Plt Count [place] # Seg Neuts % (Manual) Lymphocytes % (Manual) Monocytes % (Manual) Nucleated RBC % Seg Neutrophils # Seg Neutrophils # Man Lymphocytes # (Manual) Monocytes # (Manual) INR 1.15 H POC ABG pH POC ABG pCO2 POC ABG pO2 Potassium Chloride Carbon Dioxide BUN Creatinine Glucose POC Glucose 234 H Lactic Acid Calcium Total Bilirubin AST ALT Lactate Dehydrogenase Total Creatine Kinase CK-MB (CK-2) Troponin T Total Protein Albumin Cholesterol LDL Cholesterol Direct HDL Cholesterol Urine WBC (Auto) Crossmatch See Detail 03/10/19 03/10/19 03/10/19 19:16 21:32 23:06 WBC RBC Hgb Hct MCV MCHC RDW Plt Count [place] # Seg Neuts % (Manual) Lymphocytes % (Manual) Monocytes % (Manual) Nucleated RBC % Seg Neutrophils # Seg Neutrophils # Man Lymphocytes # (Manual) Monocytes # (Manual) INR POC ABG pH POC ABG pCO2 POC ABG pO2 315 H Potassium Chloride Carbon Dioxide BUN Creatinine Glucose POC Glucose Lactic Acid 2.80 H* Calcium Total Bilirubin AST ALT Lactate Dehydrogenase Total Creatine Kinase CK-MB (CK-2) Troponin T Total Protein Albumin Cholesterol LDL Cholesterol Direct HDL Cholesterol Urine WBC (Auto) 24.0 H Crossmatch 03/10/19 03/11/19 03/11/19 23:29 00:50 05:01 WBC RBC 2.29 L Hgb 7.3 L Hct 22.2 L MCV 97 H MCHC RDW 18.2 H Plt Count 40 L [place] # Seg Neuts % (Manual) 8.0 L Lymphocytes % (Manual) 67.0 H Monocytes % (Manual) 24.0 H Nucleated RBC % 5.0 H Seg Neutrophils # Seg Neutrophils # Man 0.4 L Lymphocytes # (Manual) Monocytes # (Manual) 1.2 H INR POC ABG pH POC ABG pCO2 POC ABG pO2 Potassium Chloride Carbon Dioxide BUN Creatinine Glucose POC Glucose 237 H Lactic Acid Calcium Total Bilirubin AST ALT Lactate Dehydrogenase Total Creatine Kinase 513 H CK-MB (CK-2) Troponin T 0.075 H Total Protein Albumin Cholesterol < 4 L LDL Cholesterol Direct 4 L HDL Cholesterol < 3 L Urine WBC (Auto) Crossmatch 03/11/19 03/11/19 03/11/19 05:01 06:06 06:07 WBC RBC Hgb Hct MCV MCHC RDW Plt Count [place] # Seg Neuts % (Manual) Lymphocytes % (Manual) Monocytes % (Manual) Nucleated RBC % Seg Neutrophils # Seg Neutrophils # Man Lymphocytes # (Manual) Monocytes # (Manual) INR POC ABG pH POC ABG pCO2 32.8 L POC ABG pO2 Potassium 5.3 H Chloride Carbon Dioxide 19 L BUN 49 H Creatinine 3.7 H Glucose 203 H POC Glucose Lactic Acid Calcium 7.1 L Total Bilirubin AST ALT Lactate Dehydrogenase Total Creatine Kinase 1156 H CK-MB (CK-2) 4.6 H Troponin T 0.077 H Total Protein Albumin Cholesterol LDL Cholesterol Direct HDL Cholesterol Urine WBC (Auto) Crossmatch 03/11/19 03/11/19 03/11/19 06:35 13:07 18:36 WBC RBC Hgb Hct MCV MCHC RDW Plt Count [place] # Seg Neuts % (Manual) Lymphocytes % (Manual) Monocytes % (Manual) Nucleated RBC % Seg Neutrophils # Seg Neutrophils # Man Lymphocytes # (Manual) Monocytes # (Manual) INR POC ABG pH POC ABG pCO2 POC ABG pO2 Potassium Chloride Carbon Dioxide BUN Creatinine Glucose POC Glucose 209 H 185 H 126 H Lactic Acid Calcium Total Bilirubin AST ALT Lactate Dehydrogenase Total Creatine Kinase CK-MB (CK-2) Troponin T Total Protein Albumin Cholesterol LDL Cholesterol Direct HDL Cholesterol Urine WBC (Auto) Crossmatch 03/11/19 03/12/19 03/12/19 23:45 04:25 05:06 WBC RBC 2.24 L Hgb 7.2 L Hct 21.9 L MCV 98 H MCHC RDW 18.3 H Plt Count 38 L [place] # Seg Neuts % (Manual) 4.0 L Lymphocytes % (Manual) Monocytes % (Manual) 69.0 H Nucleated RBC % Seg Neutrophils # Seg Neutrophils # Man 0.3 L Lymphocytes # (Manual) Monocytes # (Manual) 4.9 H INR POC ABG pH 7.320 L POC ABG pCO2 POC ABG pO2 Potassium Chloride Carbon Dioxide BUN Creatinine Glucose POC Glucose 137 H Lactic Acid Calcium Total Bilirubin AST ALT Lactate Dehydrogenase Total Creatine Kinase CK-MB (CK-2) Troponin T Total Protein Albumin Cholesterol LDL Cholesterol Direct HDL Cholesterol Urine WBC (Auto) Crossmatch 03/12/19 03/12/19 03/12/19 05:06 05:57 07:19 WBC RBC Hgb Hct MCV MCHC RDW Plt Count [place] # Seg Neuts % (Manual) Lymphocytes % (Manual) Monocytes % (Manual) Nucleated RBC % Seg Neutrophils # Seg Neutrophils # Man Lymphocytes # (Manual) Monocytes # (Manual) INR POC ABG pH POC ABG pCO2 POC ABG pO2 Potassium 6.6 H* D 6.6 H* Chloride Carbon Dioxide 17 L BUN 66 H Creatinine 5.6 H D Glucose 149 H POC Glucose 165 H Lactic Acid Calcium 6.5 L Total Bilirubin 1.90 H AST 782 H ALT 382 H Lactate Dehydrogenase Total Creatine Kinase CK-MB (CK-2) Troponin T Total Protein 5.7 L Albumin 2.7 L Cholesterol LDL Cholesterol Direct HDL Cholesterol Urine WBC (Auto) Crossmatch 03/12/19 03/12/19 03/12/19 15:24 18:55 23:45 WBC RBC Hgb Hct MCV MCHC RDW Plt Count [place] # Seg Neuts % (Manual) Lymphocytes % (Manual) Monocytes % (Manual) Nucleated RBC % Seg Neutrophils # Seg Neutrophils # Man Lymphocytes # (Manual) Monocytes # (Manual) INR POC ABG pH POC ABG pCO2 POC ABG pO2 Potassium Chloride Carbon Dioxide BUN Creatinine Glucose POC Glucose 167 H 212 H 197 H Lactic Acid Calcium Total Bilirubin AST ALT Lactate Dehydrogenase Total Creatine Kinase CK-MB (CK-2) Troponin T Total Protein Albumin Cholesterol LDL Cholesterol Direct HDL Cholesterol Urine WBC (Auto) Crossmatch 03/13/19 03/13/19 03/13/19 05:37 09:11 09:11 WBC RBC 1.99 L Hgb 6.4 L Hct 18.7 L* MCV MCHC RDW 18.5 H Plt Count 36 L [place] # Seg Neuts % (Manual) Lymphocytes % (Manual) Monocytes % (Manual) Nucleated RBC % Seg Neutrophils # Seg Neutrophils # Man Lymphocytes # (Manual) Monocytes # (Manual) INR POC ABG pH POC ABG pCO2 POC ABG pO2 Potassium Chloride Carbon Dioxide BUN 52 H Creatinine 5.5 H Glucose 235 H POC Glucose 250 H Lactic Acid Calcium 6.2 L Total Bilirubin AST ALT Lactate Dehydrogenase Total Creatine Kinase CK-MB (CK-2) Troponin T Total Protein Albumin Cholesterol LDL Cholesterol Direct HDL Cholesterol Urine WBC (Auto) Crossmatch 03/13/19 03/13/19 03/13/19 11:06 12:38 18:11 WBC RBC 2.07 L Hgb 6.6 L Hct 19.6 L* MCV 95 H MCHC RDW 18.5 H Plt Count 33 L [place] # Seg Neuts % (Manual) Lymphocytes % (Manual) Monocytes % (Manual) Nucleated RBC % Seg Neutrophils # Seg Neutrophils # Man Lymphocytes # (Manual) Monocytes # (Manual) INR POC ABG pH POC ABG pCO2 POC ABG pO2 Potassium Chloride Carbon Dioxide BUN Creatinine Glucose POC Glucose 268 H 255 H Lactic Acid Calcium Total Bilirubin AST ALT Lactate Dehydrogenase Total Creatine Kinase CK-MB (CK-2) Troponin T Total Protein Albumin Cholesterol LDL Cholesterol Direct HDL Cholesterol Urine WBC (Auto) Crossmatch 03/13/19 03/13/19 03/13/19 19:12 20:58 23:49 WBC RBC Hgb Hct MCV MCHC RDW Plt Count [place] # Seg Neuts % (Manual) Lymphocytes % (Manual) Monocytes % (Manual) Nucleated RBC % Seg Neutrophils # Seg Neutrophils # Man Lymphocytes # (Manual) Monocytes # (Manual) INR POC ABG pH 7.466 H POC ABG pCO2 POC ABG pO2 Potassium Chloride Carbon Dioxide BUN Creatinine Glucose POC Glucose 289 H Lactic Acid Calcium Total Bilirubin AST ALT Lactate Dehydrogenase Total Creatine Kinase CK-MB (CK-2) Troponin T Total Protein Albumin Cholesterol LDL Cholesterol Direct HDL Cholesterol Urine WBC (Auto) Crossmatch See Detail 03/14/19 03/14/19 03/14/19 05:51 11:39 13:43 WBC 14.0 H RBC 2.78 L Hgb 8.9 L Hct 26.0 L D MCV MCHC RDW 17.9 H Plt Count 42 L [place] # Seg Neuts % (Manual) 2.0 L Lymphocytes % (Manual) 84.0 H Monocytes % (Manual) 13.0 H Nucleated RBC % Seg Neutrophils # Seg Neutrophils # Man 0.3 L Lymphocytes # (Manual) 11.8 H Monocytes # (Manual) 1.8 H INR POC ABG pH POC ABG pCO2 POC ABG pO2 Potassium Chloride Carbon Dioxide BUN Creatinine Glucose POC Glucose 305 H 283 H Lactic Acid Calcium Total Bilirubin AST ALT Lactate Dehydrogenase Total Creatine Kinase CK-MB (CK-2) Troponin T Total Protein Albumin Cholesterol LDL Cholesterol Direct HDL Cholesterol Urine WBC (Auto) Crossmatch 03/14/19 03/15/19 03/15/19 18:12 00:43 04:24 WBC RBC Hgb Hct MCV MCHC RDW Plt Count [place] # Seg Neuts % (Manual) Lymphocytes % (Manual) Monocytes % (Manual) Nucleated RBC % Seg Neutrophils # Seg Neutrophils # Man Lymphocytes # (Manual) Monocytes # (Manual) INR POC ABG pH 7.497 H POC ABG pCO2 34.0 L POC ABG pO2 Potassium Chloride Carbon Dioxide BUN Creatinine Glucose POC Glucose 313 H 236 H Lactic Acid Calcium Total Bilirubin AST ALT Lactate Dehydrogenase Total Creatine Kinase CK-MB (CK-2) Troponin T Total Protein Albumin Cholesterol LDL Cholesterol Direct HDL Cholesterol Urine WBC (Auto) Crossmatch 03/15/19 03/15/19 03/15/19 07:15 07:15 07:24 WBC 16.1 H RBC 2.50 L Hgb 8.1 L Hct 23.4 L MCV MCHC 35 H RDW 18.5 H Plt Count 42 L [place] # Seg Neuts % (Manual) 2.0 L Lymphocytes % (Manual) 41.0 H Monocytes % (Manual) 11.0 H Nucleated RBC % Seg Neutrophils # Seg Neutrophils # Man 0.3 L Lymphocytes # (Manual) 6.6 H Monocytes # (Manual) 1.8 H INR POC ABG pH POC ABG pCO2 POC ABG pO2 Potassium Chloride 96.0 L Carbon Dioxide BUN 47 H Creatinine 5.0 H Glucose 287 H POC Glucose 285 H Lactic Acid Calcium 7.2 L D Total Bilirubin AST 522 H ALT 474 H Lactate Dehydrogenase Total Creatine Kinase CK-MB (CK-2) Troponin T Total Protein 5.7 L Albumin 2.4 L Cholesterol LDL Cholesterol Direct HDL Cholesterol Urine WBC (Auto) Crossmatch 03/15/19 03/15/19 03/15/19 11:18 17:12 23:19 WBC RBC Hgb Hct MCV MCHC RDW Plt Count [place] # Seg Neuts % (Manual) Lymphocytes % (Manual) Monocytes % (Manual) Nucleated RBC % Seg Neutrophils # Seg Neutrophils # Man Lymphocytes # (Manual) Monocytes # (Manual) INR POC ABG pH POC ABG pCO2 POC ABG pO2 Potassium Chloride Carbon Dioxide BUN Creatinine Glucose POC Glucose 287 H 221 H 297 H Lactic Acid Calcium Total Bilirubin AST ALT Lactate Dehydrogenase Total Creatine Kinase CK-MB (CK-2) Troponin T Total Protein Albumin Cholesterol LDL Cholesterol Direct HDL Cholesterol Urine WBC (Auto) Crossmatch 03/16/19 03/16/19 03/16/19 03:49 05:26 11:26 WBC RBC Hgb Hct MCV MCHC RDW Plt Count [place] # Seg Neuts % (Manual) Lymphocytes % (Manual) Monocytes % (Manual) Nucleated RBC % Seg Neutrophils # Seg Neutrophils # Man Lymphocytes # (Manual) Monocytes # (Manual) INR POC ABG pH 7.487 H POC ABG pCO2 34.3 L POC ABG pO2 254 H Potassium Chloride Carbon Dioxide BUN Creatinine Glucose POC Glucose 271 H 298 H Lactic Acid Calcium Total Bilirubin AST ALT Lactate Dehydrogenase Total Creatine Kinase CK-MB (CK-2) Troponin T Total Protein Albumin Cholesterol LDL Cholesterol Direct HDL Cholesterol Urine WBC (Auto) Crossmatch 03/16/19 03/16/19 03/17/19 17:55 23:47 04:08 WBC RBC Hgb Hct MCV MCHC RDW Plt Count [place] # Seg Neuts % (Manual) Lymphocytes % (Manual) Monocytes % (Manual) Nucleated RBC % Seg Neutrophils # Seg Neutrophils # Man Lymphocytes # (Manual) Monocytes # (Manual) INR POC ABG pH 7.491 H POC ABG pCO2 31.1 L POC ABG pO2 70 L Potassium Chloride Carbon Dioxide BUN Creatinine Glucose POC Glucose 304 H 260 H Lactic Acid Calcium Total Bilirubin AST ALT Lactate Dehydrogenase Total Creatine Kinase CK-MB (CK-2) Troponin T Total Protein Albumin Cholesterol LDL Cholesterol Direct HDL Cholesterol Urine WBC (Auto) Crossmatch 03/17/19 03/17/19 03/17/19 05:30 05:30 05:55 WBC 18.8 H RBC 2.13 L Hgb 6.9 L Hct 20.0 L MCV MCHC 35 H RDW 18.4 H Plt Count 34 L [place] # Seg Neuts % (Manual) Lymphocytes % (Manual) Monocytes % (Manual) Nucleated RBC % Seg Neutrophils # Seg Neutrophils # Man Lymphocytes # (Manual) Monocytes # (Manual) INR POC ABG pH POC ABG pCO2 POC ABG pO2 Potassium 3.5 L Chloride 96.6 L Carbon Dioxide BUN 86 H Creatinine 7.4 H Glucose 222 H POC Glucose 218 H Lactic Acid Calcium 6.9 L Total Bilirubin AST ALT Lactate Dehydrogenase Total Creatine Kinase CK-MB (CK-2) Troponin T Total Protein Albumin Cholesterol LDL Cholesterol Direct HDL Cholesterol Urine WBC (Auto) Crossmatch 03/17/19 03/17/19 03/17/19 12:09 13:06 17:37 WBC RBC Hgb Hct MCV MCHC RDW Plt Count [place] # Seg Neuts % (Manual) Lymphocytes % (Manual) Monocytes % (Manual) Nucleated RBC % Seg Neutrophils # Seg Neutrophils # Man Lymphocytes # (Manual) Monocytes # (Manual) INR POC ABG pH POC ABG pCO2 POC ABG pO2 Potassium Chloride Carbon Dioxide BUN Creatinine Glucose POC Glucose 246 H 253 H Lactic Acid Calcium Total Bilirubin AST ALT Lactate Dehydrogenase Total Creatine Kinase CK-MB (CK-2) Troponin T Total Protein Albumin Cholesterol LDL Cholesterol Direct HDL Cholesterol Urine WBC (Auto) Crossmatch See Detail 03/18/19 03/18/19 03/18/19 00:06 04:49 05:43 WBC RBC Hgb Hct MCV MCHC RDW Plt Count [place] # Seg Neuts % (Manual) Lymphocytes % (Manual) Monocytes % (Manual) Nucleated RBC % Seg Neutrophils # Seg Neutrophils # Man Lymphocytes # (Manual) Monocytes # (Manual) INR POC ABG pH 7.569 H POC ABG pCO2 30.6 L POC ABG pO2 Potassium Chloride Carbon Dioxide BUN Creatinine Glucose POC Glucose 233 H 310 H Lactic Acid Calcium Total Bilirubin AST ALT Lactate Dehydrogenase Total Creatine Kinase CK-MB (CK-2) Troponin T Total Protein Albumin Cholesterol LDL Cholesterol Direct HDL Cholesterol Urine WBC (Auto) Crossmatch 03/18/19 03/18/19 03/18/19 05:45 12:09 17:43 WBC 28.3 H RBC 2.50 L Hgb 8.1 L Hct 23.4 L MCV MCHC 35 H RDW 17.7 H Plt Count 36 L [place] # Seg Neuts % (Manual) 0 L Lymphocytes % (Manual) 4.0 L Monocytes % (Manual) Nucleated RBC % 1.0 H Seg Neutrophils # Seg Neutrophils # Man 0.0 L Lymphocytes # (Manual) 1.1 L Monocytes # (Manual) 1.4 H INR POC ABG pH POC ABG pCO2 POC ABG pO2 Potassium Chloride Carbon Dioxide BUN Creatinine Glucose POC Glucose 258 H 252 H Lactic Acid Calcium Total Bilirubin AST ALT Lactate Dehydrogenase Total Creatine Kinase CK-MB (CK-2) Troponin T Total Protein Albumin Cholesterol LDL Cholesterol Direct HDL Cholesterol Urine WBC (Auto) Crossmatch 03/19/19 03/19/19 03/19/19 00:04 06:15 06:15 WBC RBC Hgb Hct MCV MCHC RDW Plt Count [place] # Seg Neuts % (Manual) Lymphocytes % (Manual) Monocytes % (Manual) Nucleated RBC % Seg Neutrophils # Seg Neutrophils # Man Lymphocytes # (Manual) Monocytes # (Manual) INR POC ABG pH POC ABG pCO2 POC ABG pO2 Potassium Chloride 96.7 L Carbon Dioxide BUN 60 H Creatinine 5.4 H Glucose 249 H POC Glucose 215 H Lactic Acid Calcium 7.6 L Total Bilirubin AST ALT Lactate Dehydrogenase 853 H Total Creatine Kinase CK-MB (CK-2) Troponin T Total Protein Albumin Cholesterol LDL Cholesterol Direct HDL Cholesterol Urine WBC (Auto) Crossmatch 03/19/19 03/19/19 03/19/19 06:17 12:51 18:18 WBC RBC Hgb Hct MCV MCHC RDW Plt Count [place] # Seg Neuts % (Manual) Lymphocytes % (Manual) Monocytes % (Manual) Nucleated RBC % Seg Neutrophils # Seg Neutrophils # Man Lymphocytes # (Manual) Monocytes # (Manual) INR POC ABG pH POC ABG pCO2 POC ABG pO2 Potassium Chloride Carbon Dioxide BUN Creatinine Glucose POC Glucose 301 H 278 H 252 H Lactic Acid Calcium Total Bilirubin AST ALT Lactate Dehydrogenase Total Creatine Kinase CK-MB (CK-2) Troponin T Total Protein Albumin Cholesterol LDL Cholesterol Direct HDL Cholesterol Urine WBC (Auto) Crossmatch 03/19/19 03/20/19 03/20/19 23:58 04:45 04:45 WBC 39.9 H RBC 2.51 L Hgb 8.0 L Hct 24.1 L MCV 96 H MCHC RDW 18.2 H Plt Count 51 L [place] # Seg Neuts % (Manual) Lymphocytes % (Manual) Monocytes % (Manual) Nucleated RBC % Seg Neutrophils # Seg Neutrophils # Man Lymphocytes # (Manual) Monocytes # (Manual) INR POC ABG pH POC ABG pCO2 POC ABG pO2 Potassium Chloride Carbon Dioxide BUN 51 H Creatinine 5.1 H Glucose 221 H POC Glucose 233 H Lactic Acid Calcium 7.8 L Total Bilirubin AST ALT Lactate Dehydrogenase Total Creatine Kinase CK-MB (CK-2) Troponin T Total Protein Albumin Cholesterol LDL Cholesterol Direct HDL Cholesterol Urine WBC (Auto) Crossmatch 03/20/19 05:52 WBC RBC Hgb Hct MCV MCHC RDW Plt Count [place] # Seg Neuts % (Manual) Lymphocytes % (Manual) Monocytes % (Manual) Nucleated RBC % Seg Neutrophils # Seg Neutrophils # Man Lymphocytes # (Manual) Monocytes # (Manual) INR POC ABG pH POC ABG pCO2 POC ABG pO2 Potassium Chloride Carbon Dioxide BUN Creatinine Glucose POC Glucose 256 H Lactic Acid Calcium Total Bilirubin AST ALT Lactate Dehydrogenase Total Creatine Kinase CK-MB (CK-2) Troponin T Total Protein Albumin Cholesterol LDL Cholesterol Direct HDL Cholesterol Urine WBC (Auto) Crossmatch Allied health notes reviewed: nursing
[2019-03-20] MEDS: PROVENTIL IH SCH ×3 (08:11→23:03)
--- NOTE | 2019-03-20 09:04 | Progress Note ---
Assessment and Plan Assessment and plan: Patient is a 54 yo man with a history of hypertension, DM type 2, CKD 3 and CAD s/p shents who presented to [facility] ED on 03/10/19 with SOB and cough. Dental pain with ?abscess preceded this illness. He had a PEA cardiac arrest in ED, was successfully resucitated, intubated, stated on vasopressor and admitted to ICU. He had whole body jerking in ED, ?seizure activity. * Initial CT chest wo contrast IMPRESSION: Small pericardial effusion ET in satisfactory position. Atelectasis posterior aspects of both lungs. * Initial CT abd/pelvis wo contrast IMPRESSION: Possible mild right colonic wall thickening and trace free fluid in the right paracolic gutter and pelvis may be infectious, inflammatory or ischemic in etiology. No pneumoperitoneum or focal fluid collection to suggest abscess. Mild pericholecystic edema. No calcified gallstones. If there is concern for cholecystitis, consider follow- up ultrasound and/or nuclear medicine hepatobiliary scan. Small pericardial effusion. Coronary and peripheral arterial disease. * CT head wo contrast IMPRESSION: Nonspecific findings with some indistinctness of the basal ganglia and dean-white matter differentiation which may be seen with hypoxic ischemic brain injury * TTE on 03/11/19: Technically difficult due to body habitus, mild concentric LVH, estimated EF 40-45%, abnormal LV diastolic filling c/w impaired relaxation...no pericardial effusion Cardiopulmonary Arrest: supportive care Acute encephalopathy, poa with jerking activity following NGT placement thought to be seizures ?seizure, ?diffused hypoxic ischemic brain injury: Consulted Neurology, input noted Acute Hypoxic Respiratory Failure, On mechanical ventilation >96hrs. Pulmonary following Severe Sepsis with Shock: off Vasopressors. ?Dental abscess vs Group A strep. ID following, continues on abx, No evidence of Endocarditis on TTE Multi system Organ failure, poa Acute combined heart failure, poa: Cardiology is following DM type 2 with hyperglycemia-POA: Lantus and adjust sliding scale Insulin severe Anemia- Transfuse Thrombocytopenia ?DIC secondary to underlying condition: Hold Antiplatelets Pericardial effusion: Cardiology following ARF/CKD 3 due to ATN, poa with suspected progression to ESRD: on HD, Nephrology is following Morbid obesity, bmi 55.9: Counselling when more awake Severe Protein calorie malnutrition, poa: Customer Account Manager consult Acute Metabolic Encephalopathy: Neurology consulted ?ischemic brain injury Diarrhea-C,DIFF RULED OUT- fecal tube in place SHOCK LIVER-HEPATIC FAILURE-improve bp and follow CAD by hx-POA Sacral Pressure ulcer, poa- Wound care consulted, input noted poor prognosis d/w daughter Macrina and sister Nano at bedside. CCT 31 minutes History Interval history: Patient was seen and examined. Follow-up on current diagnosis Respiratory failure. No overnight events reported to me. Imaging, nursing note, chart, labs and old chart reviewed. It appears he has emesis overnight. Hospitalist Physical - Physical exam Narrative exam: Gen: critically ill appearing, bmi 55.9 HEENT: NCAT, EOMI, PERRL, OP Clear Neck: supple, no adenopathy, no thyromegaly, no JVD CVS/Heart: RRR, normal S1S2, pulses present bilaterally Chest/Lungs: diminished bs bilateral Symmetrical chest expansion, ok air entry bilaterally GI/Abdomen: soft, NTND, good bowel sounds, no guarding or rebound /Bladder: no suprapubic tenderness, no CVA or paraspinal tenderness Extermity/Skin: edema MSK: sedated Neuro: sedated Psych: sedated - Constitutional Vitals: Temp Pulse Resp BP Pulse Ox 99.2 F 90 14 121/32 94 03/20/19 07:55 03/20/19 08:30 03/20/19 08:30 03/20/19 08:30 03/20/19 08:30 General appearance: Present: obese Results - Labs CBC & Chem 7: 03/20/19 04:45 03/20/19 04:45 Labs: Laboratory Last Values WBC 39.9 K/mm3 (4.5-11.0) H 03/20/19 04:45 RBC 2.51 M/mm3 (3.65-5.03) L 03/20/19 04:45 Hgb 8.0 gm/dl (11.8-15.2) L 03/20/19 04:45 Hct 24.1 % (35.5-45.6) L 03/20/19 04:45 MCV 96 fl (84-94) H 03/20/19 04:45 MCH 32 pg (28-32) 03/20/19 04:45 MCHC 33 % (32-34) 03/20/19 04:45 RDW 18.2 % (13.2-15.2) H 03/20/19 04:45 Plt Count 51 K/mm3 (140-440) L 03/20/19 04:45 [place] % (Auto) Wash Oil Pump Operator Helper 03/18/19 05:45 Eos % (Auto) 0.4 % (0.0-4.3) 03/10/19 17:57 [place] # 0.9 K/mm3 (0.0-0.8) H 03/10/19 17:57 Eos # 0.0 K/mm3 (0.0-0.4) 03/10/19 17:57 Baso # 0.0 K/mm3 (0.0-0.1) 03/10/19 17:57 Add Manual Diff Complete 03/18/19 05:45 Total Counted 100 03/18/19 05:45 Seg Neutrophils % Wash Oil Pump Operator Helper 03/18/19 05:45 Seg Neuts % (Manual) 0 % (40.0-70.0) L 03/18/19 05:45 0 % 03/18/19 05:45 4.0 % (13.4-35.0) L 03/18/19 05:45 Reactive Lymphs % (Man) 0 % 03/18/19 05:45 5.0 % (0.0-7.3) 03/18/19 05:45 0 % (0.0-4.3) 03/18/19 05:45 0 % (0.0-1.8) 03/18/19 05:45 1.0 % 03/18/19 05:45 0 % 03/18/19 05:45 0 % 03/18/19 05:45 90.0 % 03/18/19 05:45 Nucleated RBC % 1.0 % (0.0-0.9) H 03/18/19 05:45 Seg Neutrophils # 0.1 K/mm3 (1.8-7.7) L 03/10/19 17:57 Seg Neutrophils # Man 0.0 K/mm3 (1.8-7.7) L 03/18/19 05:45 Band Neutrophils # 0.0 K/mm3 03/18/19 05:45 1.1 K/mm3 (1.2-5.4) L 03/18/19 05:45 Abs React Lymphs (Man) 0.0 K/mm3 03/18/19 05:45 1.4 K/mm3 (0.0-0.8) H 03/18/19 05:45 0.0 K/mm3 (0.0-0.4) 03/18/19 05:45 0.0 K/mm3 (0.0-0.1) 03/18/19 05:45 0.3 K/mm3 03/18/19 05:45 0.0 K/mm3 03/18/19 05:45 0.0 K/mm3 03/18/19 05:45 Blast Cells # 0.0 K/mm3 03/18/19 05:45 Pathologist Review 03/10/19 17:57 WBC Morphology Not Reportable 03/18/19 05:45 WBC Morphology TNR 03/18/19 05:45 Hypersegmented Neuts Not Reportable 03/18/19 05:45 Hyposegmented Neuts Not Reportable 03/18/19 05:45 Hypogranular Neuts Not Reportable 03/18/19 05:45 Not Reportable 03/18/19 05:45 Not Reportable 03/18/19 05:45 Not Reportable 03/18/19 05:45 Not Reportable 03/18/19 05:45 Not Reportable 03/18/19 05:45 Not Reportable 03/18/19 05:45 Consistent w auto 03/18/19 05:45 Not Reportable 03/18/19 05:45 Plt Clumps, EDTA Not Reportable 03/18/19 05:45 Not Reportable 03/18/19 05:45 Not Reportable 03/18/19 05:45 Not Reportable 03/18/19 05:45 Plt Morphology Comment Not Reportable 03/18/19 05:45 RBC Morphology Not Reportable 03/18/19 05:45 Dimorphic RBCs Not Reportable 03/18/19 05:45 Few 03/18/19 05:45 Not Reportable 03/18/19 05:45 Not Reportable 03/18/19 05:45 1+ 03/18/19 05:45 Few 03/18/19 05:45 Not Reportable 03/18/19 05:45 Not Reportable 03/18/19 05:45 Not Reportable 03/18/19 05:45 Not Reportable 03/18/19 05:45 Not Reportable 03/18/19 05:45 Few 03/18/19 05:45 1+ 03/18/19 05:45 Not Reportable 03/18/19 05:45 Not Reportable 03/18/19 05:45 Not Reportable 03/18/19 05:45 Not Reportable 03/18/19 05:45 Not Reportable 03/18/19 05:45 Not Reportable 03/18/19 05:45 Not Reportable 03/18/19 05:45 Acanthocytes (Spur) Few 03/18/19 05:45 Rouleaux Not Reportable 03/18/19 05:45 Not Reportable 03/18/19 05:45 Not Reportable 03/18/19 05:45 Not Reportable 03/18/19 05:45 Not Reportable 03/18/19 05:45 Hem Pathologist Commnt Sent to pathology 03/18/19 05:45 PT 14.4 Sec. (12.2-14.9) 03/10/19 17:57 INR 1.15 (0.87-1.13) H 03/10/19 17:57 APTT 28.8 Sec. (24.2-36.6) 03/10/19 17:57 POC ABG pH 7.398 (7.35-7.45) 03/19/19 03:48 POC ABG pCO2 43.5 (35-45) 03/19/19 03:48 POC ABG pO2 80 (80-105) 03/19/19 03:48 POC ABG HCO3 26.8 (22-26 mml/L) 03/19/19 03:48 POC ABG Total CO2 28 (23-27mmol/L) 03/19/19 03:48 POC ABG O2 Sat 96 03/19/19 03:48 POC ABG Base Excess 2 ((-2) - (+3)mmol/L) 03/19/19 03:48 VBG pH 7.381 (7.320-7.420) 03/10/19 17:57 45 % 03/19/19 03:48 Sodium 140 mmol/L (137-145) 03/20/19 04:45 Potassium 4.7 mmol/L (3.6-5.0) 03/20/19 04:45 Chloride 98.3 mmol/L (98-107) 03/20/19 04:45 Carbon Dioxide 26 mmol/L (22-30) 03/20/19 04:45 20 mmol/L 03/20/19 04:45 BUN 51 mg/dL (9-20) H 03/20/19 04:45 5.1 mg/dL (0.8-1.5) H 03/20/19 04:45 Estimated GFR 12 ml/min 03/20/19 04:45 10 % 03/20/19 04:45 Glucose 221 mg/dL (75-100) H 03/20/19 04:45 POC Glucose 256 (70-105) H 03/20/19 05:52 Lactic Acid 1.70 mmol/L (0.7-2.0) 03/10/19 23:17 4.0 mg/dL (3.5-7.6) 03/19/19 06:15 Calcium 7.8 mg/dL (8.4-10.2) L 03/20/19 04:45 Magnesium 1.80 mg/dL (1.7-2.3) 03/17/19 05:30 0.50 mg/dL (0.1-1.2) 03/15/19 07:15 AST 522 units/L (5-40) H 03/15/19 07:15 ALT 474 units/L (7-56) H 03/15/19 07:15 129 units/L (35-129) 03/15/19 07:15 853 units/L (91-180) H 03/19/19 06:15 1156 units/L (55-170) H 03/11/19 06:07 CK-MB (CK-2) 4.6 ng/mL (0.0-4.0) H 03/11/19 06:07 CK-MB (CK-2) Rel Index 0.3 (0-4) 03/11/19 06:07 0.077 ng/mL (0.00-0.029) H 03/11/19 06:07 5.7 g/dL (6.3-8.2) L 03/15/19 07:15 2.4 g/dL (3.9-5) L 03/15/19 07:15 0.7 % 03/15/19 07:15 Triglycerides 91 mg/dL (2-149) 03/11/19 00:50 Cholesterol < 4 mg/dL (50-199) L 03/11/19 00:50 4 mg/dL (50-130) L 03/11/19 00:50 < 3 mg/dL (40-59) L 03/11/19 00:50 1.00 % 03/11/19 00:50 Briana (Yellow) 03/10/19 23:06 Cloudy (Clear) 03/10/19 23:06 5.0 (5.0-7.0) 03/10/19 23:06 Ur Specific [place] 1.016 (1.003-1.030) 03/10/19 23:06 >500 mg/dL (Negative) 03/10/19 23:06 Neg mg/dL (Negative) 03/10/19 23:06 Neg mg/dL (Negative) 03/10/19 23:06 Mod (Negative) 03/10/19 23:06 Neg (Negative) 03/10/19 23:06 Neg (Negative) 03/10/19 23:06 2.0 mg/dL (<2.0) 03/10/19 23:06 Ur Leukocyte Esterase Neg (Negative) 03/10/19 23:06 24.0 /HPF (0.0-6.0) H 03/10/19 23:06 24.0 /HPF (0.0-6.0) 03/10/19 23:06 U Epithel Cells (Auto) 4.0 /HPF (0-13.0) 03/10/19 23:06 Amorphous Crystals Few 03/10/19 23:06 Random Vancomycin 14 ug/mL (0-40.0) 03/12/19 05:06 Proteinase 3 (PR3) Ab <1.0 AI (<1.0) 03/13/19 09:11 Myeloperoxidase Ab <1.0 AI (<1.0) 03/13/19 09:11 86 mg/dL (82-185) 03/13/19 09:12 37 mg/dL (15-53) 03/13/19 09:12 C. difficile Tox (PCR) Negative (Negative) 03/11/19 Unknown Hepatitis A IgM Ab Non-reactive (NonReactive) 03/13/19 01:31 Hep Bs Antigen Non-reactive (Negative) 03/13/19 01:31 Hep B Core IgM Ab Non-reactive (NonReactive) 03/13/19 01:31 Non-reactive (NonReactive) 03/13/19 01:31 Influenza A (Rapid) Negative (Negative) 03/10/19 18:00 Influenza B (Rapid) Negative (Negative) 03/10/19 18:00 Blood Type A POSITIVE 03/17/19 13:06 Antibody Screen Negative 03/17/19 13:06 Crossmatch See Detail 03/17/19 13:06 Active Medications - Current Medications Current Medications: Generic Name Dose Route Start Last Admin Trade Name Freq PRN Reason Stop Dose Admin Acetaminophen 650 mg 03/11/19 00:40 03/17/19 16:45 Tylenol PO 650 mg Q4H PRN Administration Pain MILD(1-3)/Fever >100.5/[place] Acetaminophen 650 mg 03/11/19 00:40 03/12/19 04:53 Tylenol IN 650 mg Q4H PRN Administration Pain MILD(1-3)/Fever >100.5/[place] Albumin Human 12.5 gm 03/13/19 09:29 Alburx 25% (Albumin) IV DUKE PRN Hypotension Albuterol 2.5 mg 03/17/19 16:00 03/20/19 08:11 Proventil IH 2.5 mg Q8HRT ROXANNE Administration Lipase/Protease/Amylase 1 each 03/15/19 13:[address] 10,500 Unit FEEDTUBE PRN PRN For Clogged Feeding Tube Dextrose 50 ml 03/11/19 00:44 D50w (25gm) Syringe IV PRN PRN Hypoglycemia Fentanyl 50 mcg 03/11/19 07:50 03/18/19 11:44 Sublimaze IV 50 mcg Q10MIN PRN Administration ANALGESIA Hydrophilic Ointment 1 applic 03/10/19 19:50 Vaseline Lip Therapy TP Q2HR PRN Dry Lips Propofol 1,000 mg in 100 mls @ 4.082 mls/hr 03/10/19 20:00 03/11/19 14:30 Diprivan 10 Mg/Ml IV Infused TITR ROXANNE Titration Protocol 5 MCG/KG/MIN Norepinephrine 4 mg in 250 mls @ 7.5 mls/hr 03/10/19 21:00 03/20/19 07:53 Levophed Drip 4 Mg/Ns 250 Ml IV 14 mcg/min TITR ROXANNE 52.5 mls/hr Administration Protocol 2 MCG/MIN Fentanyl Citrate 2,000 mcg in 100 mls @ 6.804 mls/hr 03/11/19 08:00 03/20/19 02:29 Fentanyl Drip Premix IV 2 mcg/kg/hr TITR ROXANNE 13.608 mls/hr Administration Protocol 1 MCG/KG/HR Ceftriaxone Sodium 2 gm in 100 mls @ 200 mls/hr 03/11/19 13:00 03/19/19 21:51 Rocephin/Ns 2 Gm/100 Ml IV 200 mls/hr Q12HR ROXANNE Administration Protocol Sodium Chloride 100 mls @ 999 mls/hr 03/15/19 08:11 Nacl 0.9% IV DUKE PRN Hypotension Insulin Glargine 40 units 03/19/19 08:00 03/20/19 07:44 Lantus SUB-Q 40 units QAMDIAB ROXANNE Administration Insulin Human Lispro 0 unit 03/11/19 06:00 03/20/19 06:46 Humalog SUB-Q 6 unit Q6HR ROXANNE Administration Protocol Lansoprazole 30 mg 03/18/19 10:00 03/19/19 09:29 Prevacid Solutab FEEDTUBE 30 mg QDAY ROXANNE Administration Midodrine 10 mg 03/19/19 16:00 03/20/19 07:54 Proamatine PO 10 mg TID@0800,1200,1600 ROXANNE Administration Multi-Ingred Cream/Lotion/Oil/Oint 1 applic 03/10/19 19:50 Artificial Tears Ophth Oint OU Q4HR PRN Dry Eye(s) Ondansetron HCl 4 mg 03/11/19 00:40 03/19/19 21:53 Zofran IV 4 mg Q8H PRN Administration Nausea And Vomiting Simple Syrup 15 ml 03/15/19 13:21 Simple Syrup FEEDTUBE PRN PRN Hypoglycemia Simple Syrup 30 ml 03/15/19 13:21 Simple Syrup FEEDTUBE PRN PRN Hypoglycemia Sodium Bicarbonate 325 mg 03/15/19 13:21 Sodium Bicarbonate FEEDTUBE PRN PRN For Clogged Feeding Tube Sodium Chloride 10 ml 03/11/19 10:00 03/19/19 10:00 Sodium Chloride Flush Syringe 10 Ml IV 10 ml BID ROXANNE Administration Sodium Chloride 10 ml 03/11/19 00:40 Sodium Chloride Flush Syringe 10 Ml IV PRN PRN LINE FLUSH Nutrition/Malnutrition Assess - Dietary Evaluation Nutrition/Malnutrition Findings: Nutrition Notes Start: 03/12/19 11:38 Freq: Status: Active Protocol: Document 03/19/19 17:16 RM (Rec: 03/19/19 17:19 RM [id number]) Nutrition Notes Initial or Follow up Reassessment Current Diagnosis CKD(stage I-IV),Coronary Artery Disease,Diabetes,Sepsis ,Hypertension,Respiratory Failure Other Pertinent Diagnosis s/p cardiac arrest, anoxic brain injury Current Diet TF - Nepro at 45ml/hr Labs/Tests Reviewed Pertinent Medications Reviewed Height 5 ft 4 in Weight 147.8 kg [place] Body Weight (kg) 59.09 BMI 55.9 Subjective/Other Information Observed Nepro infusing at goal rate. Per nurse pt is tolerating TF. Percent of energy/protein needs met: 73% energy 71% pro Burn Absent Trauma Absent #1 Nutrition Diagnosis Inadequate oral intake Diagnosis Progress(for reassessment Continues documentation) Is patient on ventilator? Yes Is Patient Ambulatory and/or Out of Bed No REE-([place]-confined to bed) 2672.304 Calculation Used for Recommendations 65-70% energy needs Additional Notes Energy needs: 5877-5793 kcal/ day Pro needs 1.2-1.4g/kg adjBW: 124-145g/day Fluid needs 1-1.5L/day Nutrition Intervention Nutrition Support: Continue Nepro at 45ml/hr with 120ml water flush q4h. Kcal 1,944 Protein (gm) 87 Carbohydrates (gm) 174 Fat (gm) 104 Fluid (mL) 785 Fiber (gm) 14 Goal #1 TF tolerance Goal #2 TF to meet nutrient needs as best possible Follow-Up By: 03/26/19 Additional Comments Follow for TF tolerance
[2019-03-20] MEDS: PREVACID SOLUTAB FEEDTUBE SCH (10:33)
[2019-03-20] MEDS: SODIUM CHLORIDE FLUSH SYRINGE 10 ML IV SCH (10:34)
[2019-03-20] MEDS: ROCEPHIN/NS 2 GM/100 ML 2 GM/100 ML BAG IV SCH ×2 (10:37→22:17)
--- NOTE | 2019-03-20 10:40 | Progress Note ---
Assessment and Plan Cultures: Blood culture 03/10/2019 Group-A Strep 2 of 4 bottles Tracheal asp 03/10/2019 poor specimen Blood culture 03/12/2019 no growth today C diff negative 03/14/2019 trach aspirate culture: no growth Assessment: 54 y/o male with history of diabetes, hypertension, chronic kidney disease, coronary artery disease admitted on 03/10/2019 due to a week history of facial/mouth pain (?dental pain) associated with generalized weakness, cold sensation, cough with sputum production and body aches, 48 hour-history of sore throat, in the ED patient went into PEA arrest s/p CPR: 1) Severe Sepsis with PEA arrest and transient shock post arrest: Etiology likely due to GAS bacteremia. CXR and CT chest no consolidations. 2) Invasive Group-A Strep bacteremia/toxic shock syndrome: source unclear ?tonsillopharingitis, ?dental abscess, ?early aspiration pneumonia. Blood culture 03/10/2019 Group-A Strep [address] face showed a small right mandibular premolar abscess, poor dentition and chronic sinusitis. TTE no vegetations. 3) Acute encephalopathy: not better; post arrest +/- due to infection ? ischemic brain injury. CT head some indistinctness and loss of dean-white matter differentiation and indistinct visualization of the basal ganglia. This is non specific finding but may be seen with diffuse hypoxic ischemic brain injury. 4) Acute respiratory failure: intubated. CT chest without contrast shows pericardial effusion measuring up to 1.4 cm in transverse diameter, posterior atelectasis both lungs. Minimal pleural fluid collection. 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 Dr. Cleaning following. 6) ISMAEL on CKD: renally adjusted meds. Now on HD through fem vas cath 7) Elevated LFTs: probably from shock and sepsis. Recommendations: - continue IV Ceftriaxone, complete total 14 days - WBC worsening f/u peripheral blood flow cytometry per hematology oncology given findings of 90% peripheral blasts - Overall, poor prognosis Will follow along. MD [facility] C: [phone] O: [phone] F: [phone] Subjective Date of service: 03/20/19 Principal diagnosis: high wbc - blasts Interval history: Low grade temperature. Back on pressors, being weaned per RN. Mental status unchanged. Objective - Exam Narrative Exam: Physical Exam: Constitutional: intubated. Obese Head, Ears, Nose: Normocephalic, atraumatic. External ears, nose normal Eyes: Conjunctivae/corneas clear. No icterus. No ptosis. Neck: intubated Oral: intubated Cardiovascular: S1, S2 normal. Respiratory: Good air entry, clear to auscultation bilaterally GI: Soft, non-tender; bowel sounds normal. No peritoneal signs. Rectal tube + Musculoskeletal: 1+ pedal edema. Obese Skin: No rash or abscess. Superficial wounds on sacral region Hem/Lymphatic: No palpable cervical or supraclavicular nodes. No lymphangitis Psych: no agitation Neurological: intubated, on vent - Constitutional Vitals: Vital Signs Temp Pulse Resp BP Pulse Ox 99.2 F 90 14 121/32 94 03/20/19 07:55 03/20/19 08:30 03/20/19 08:30 03/20/19 08:30 03/20/19 08:30 Temperature -Last 24 Hours Temperature 99.2 F Temperature 99.4 F Temperature 99.6 F Temperature 99.8 F Temperature 100.2 F Temperature 98.8 F Temperature 99 F Temperature 98.8 F - Labs CBC & Chem 7: 03/20/19 04:45 03/20/19 04:45 Labs: Abnormal lab results 03/19/19 03/19/19 03/19/19 Range/Units 12:51 18:18 23:58 WBC (4.5-11.0) K/mm3 RBC (3.65-5.03) M/mm3 Hgb (11.8-15.2) gm/dl Hct (35.5-45.6) % MCV (84-94) fl RDW (13.2-15.2) % Plt Count (140-440) K/mm3 BUN (9-20) mg/dL Creatinine (0.8-1.5) mg/dL Glucose (75-100) mg/dL POC Glucose 278 H 252 H 233 H (70-105) Calcium (8.4-10.2) mg/dL 03/20/19 03/20/19 03/20/19 Range/Units 04:45 04:45 05:52 WBC 39.9 H (4.5-11.0) K/mm3 RBC 2.51 L (3.65-5.03) M/mm3 Hgb 8.0 L (11.8-15.2) gm/dl Hct 24.1 L (35.5-45.6) % MCV 96 H (84-94) fl RDW 18.2 H (13.2-15.2) % Plt Count 51 L (140-440) K/mm3 BUN 51 H (9-20) mg/dL Creatinine 5.1 H (0.8-1.5) mg/dL Glucose 221 H (75-100) mg/dL POC Glucose 256 H (70-105) Calcium 7.8 L (8.4-10.2) mg/dL - Imaging and cardiology Chest x-ray: report reviewed, image reviewed (left lower lobe opacity)
[2019-03-21] MEDS: HumaLOG SUB-Q SCH ×4 (00:43→18:00)
[2019-03-21] MEDS: TYLENOL PO PRN (04:17)
[2019-03-21] MEDS: LEVOPHED DRIP 4 MG/NS 250 ML 4 MG/250 ML BAG IV SCH (04:17)
[2019-03-21] MEDS: SODIUM CHLORIDE FLUSH SYRINGE 10 ML IV SCH ×4 (07:44→22:27)
[2019-03-21] MEDS: PROVENTIL IH SCH ×2 (07:53→16:31)
--- NOTE | 2019-03-21 08:00 | Hem/Onc Progress Note ---
Assessment and Plan 1. Anemia, leukopenia, thrombocytopenia. Peripheral smear mentions blasts. Flow - leukemia - verbal infor dr mai 2. CK is elevated, we will do LDH. We will do uric acid. As per the information available; 1. History of diabetes. 2. History of hypertension. 3. Coronary artery disease. 4. History of dental pain recently. 5. The patient had a cardiac arrest, status post cardiopulmonary resuscitation. 6. The patient is intubated. 7. Pericardial effusion. 8. Neurology note mentions coma. We will follow the patient during inpatient stay. flow cytometry result - verbal info Dr Mai - AML?? - BMBx for subtyping. pt has poor Performance status - hospice an option - Patient Problems (1) Leukocytosis Current Visit: Yes Status: Acute Subjective Date of service: 03/21/19 Principal diagnosis: leukemia Interval history: on vent Objective - Exam Narrative Exam: Pain - pt non verbal General appearance intubated Performance status needs total care Eyes - no icterus ENT intubated LNs cervical not palpable Neck - not able to evalute fully Respiratory Normal Breath sounds - decreased air entry CVS S1 S2 + Extremities normal temperature General GI Soft Rectal deferred male - deferred Skin warm Musculoskeletal not moving Neurologically non verbal - on vent - Constitutional Vitals: Last Vital Signs Temp 103.0 F H 03/21/19 04:23 Pulse 100 H 03/21/19 07:53 Resp 38 H 03/21/19 07:53 BP 146/70 03/21/19 07:37 Pulse Ox 99 03/21/19 07:37 - Labs Lab Results: Laboratory Results - last 24 hr 03/20/19 03/20/19 03/21/19 11:43 17:48 00:17 POC Glucose 316 H 286 H 212 H 03/21/19 06:21 POC Glucose 256 H Medications & Allergies - Medications Allergies/Adverse Reactions: Allergies No Known Allergies Allergy (Verified 03/10/19 17:37) Home Medications: Home Medications Medication Instructions Recorded Confirmed Last Taken Type Allopurinol [Zyloprim] 300 mg PO DAILY 03/10/19 03/10/19 Unknown History Aspirin [Adult Aspirin] 81 mg PO DAILY 03/10/19 03/10/19 Unknown History Atorvastatin [Lipitor Tab] 80 mg PO DAILY 03/10/19 03/10/19 Unknown History Carvedilol [Coreg] 12.5 mg PO BID 03/10/19 03/10/19 Unknown History Clopidogrel [Plavix] 75 mg PO DAILY 03/10/19 03/10/19 Unknown History Gabapentin [Neurontin] 300 mg PO BID 03/10/19 03/10/19 Unknown History Insulin Lispro Protamin/Lispro 33 unit SQ BID 03/10/19 03/10/19 Unknown History [Humalog Mix 75-25 Vial] Lisinopril [Zestril TAB] 10 mg PO DAILY 03/10/19 03/10/19 Unknown History Pantoprazole [Protonix] 40 mg PO DAILY 03/10/19 03/10/19 Unknown History Sitagliptin Phosphate [Januvia] 50 mg PO DAILY 03/10/19 03/10/19 Unknown History Active Medications: Generic Name Dose Route Start Last Admin Trade Name Freq PRN Reason Stop Dose Admin Acetaminophen 650 mg 03/11/19 00:40 03/21/19 04:17 Tylenol PO 650 mg Q4H PRN Administration Pain MILD(1-3)/Fever >100.5/[place] Acetaminophen 650 mg 03/11/19 00:40 03/12/19 04:53 Tylenol MD 650 mg Q4H PRN Administration Pain MILD(1-3)/Fever >100.5/[place] Albumin Human 12.5 gm 03/13/19 09:29 Alburx 25% (Albumin) IV DUKE PRN Hypotension Albuterol 2.5 mg 03/17/19 16:00 03/21/19 07:53 Proventil IH 2.5 mg Q8HRT ROXANNE Administration Lipase/Protease/Amylase 1 each 03/15/19 13:21 Pancreaze 10,500 Unit FEEDTUBE PRN PRN For Clogged Feeding Tube Dextrose 50 ml 03/11/19 00:44 D50w (25gm) Syringe IV PRN PRN Hypoglycemia Fentanyl 50 mcg 03/11/19 07:50 03/18/19 11:44 Sublimaze IV 50 mcg Q10MIN PRN Administration ANALGESIA Hydrophilic Ointment 1 applic 03/10/19 19:50 Vaseline Lip Therapy TP Q2HR PRN Dry Lips Propofol 1,000 mg in 100 mls @ 4.082 mls/hr 03/10/19 20:00 03/11/19 14:30 Diprivan 10 Mg/Ml IV Infused TITR ROXANNE Titration Protocol 5 MCG/KG/MIN Norepinephrine 4 mg in 250 mls @ 7.5 mls/hr 03/10/19 21:00 03/21/19 04:19 Levophed Drip 4 Mg/Ns 250 Ml IV 5 mcg/min TITR ROXANNE 18.75 mls/hr Titration Protocol 2 MCG/MIN Fentanyl Citrate 2,000 mcg in 100 mls @ 6.804 mls/hr 03/11/19 08:00 03/20/19 09:05 Fentanyl Drip Premix IV 0 mcg/kg/hr TITR ROXANNE 0 mls/hr Titration Protocol 1 MCG/KG/HR Ceftriaxone Sodium 2 gm in 100 mls @ 200 mls/hr 03/11/19 13:00 03/20/19 22:17 Rocephin/Ns 2 Gm/100 Ml IV 200 mls/hr Q12HR ROXANNE Administration Protocol Sodium Chloride 100 mls @ 999 mls/hr 03/15/19 08:11 Nacl 0.9% IV DUKE PRN Hypotension Insulin Glargine 40 units 03/19/19 08:00 03/20/19 07:44 Lantus SUB-Q 40 units QAMDIAB ROXANNE Administration Insulin Human Lispro 0 unit 03/11/19 06:00 03/21/19 06:45 Humalog SUB-Q 6 unit Q6HR ROXANNE Administration Protocol Lansoprazole 30 mg 03/18/19 10:00 03/20/19 10:33 Prevacid Solutab FEEDTUBE 30 mg QDAY ROXANNE Administration Midodrine 10 mg 03/19/19 16:00 03/20/19 16:20 Proamatine PO 10 mg TID@0800,1200,1600 ROXANNE Administration Multi-Ingred Cream/Lotion/Oil/Oint 1 applic 03/10/19 19:50 Artificial Tears Ophth Oint OU Q4HR PRN Dry Eye(s) Ondansetron HCl 4 mg 03/11/19 00:40 03/19/19 21:53 Zofran IV 4 mg Q8H PRN Administration Nausea And Vomiting Simple Syrup 15 ml 03/15/19 13:21 Simple Syrup FEEDTUBE PRN PRN Hypoglycemia Simple Syrup 30 ml 03/15/19 13:21 Simple Syrup FEEDTUBE PRN PRN Hypoglycemia Sodium Bicarbonate 325 mg 03/15/19 13:21 Sodium Bicarbonate FEEDTUBE PRN PRN For Clogged Feeding Tube Sodium Chloride 10 ml 03/11/19 10:00 03/21/19 07:44 Sodium Chloride Flush Syringe 10 Ml IV Not Given BID ROXANNE Sodium Chloride 10 ml 03/11/19 00:40 Sodium Chloride Flush Syringe 10 Ml IV PRN PRN LINE FLUSH
--- NOTE | 2019-03-21 08:08 | Progress Note ---
Subjective Date of service: 03/21/19 Principal diagnosis: high wbc - blasts Interval history: detailed neuro exam detects little change still on vent andf no spontaneous movement.. no spontaneous movement to verbal, visual. or auditory stimulation minimal response to pain and no clear withdrawal... barely spinal reflex... on forced eye opening gaze is downward and dyscojugate does not track objects or voice Imp: see no evidence of recovery from encephalopathy- multifactorial will continue to follow no family prsent to have discussion with Objective - Vital Sign Vital Signs - 12hr 03/20/19 03/20/19 03/20/19 20:30 21:00 21:30 Temperature Pulse Rate 96 H 96 H 97 H Pulse Rate [ Anterior Bilateral Throughout] Pulse Rate [ From Monitor] Respiratory 27 H 27 H 29 H Rate Respiratory Rate [Anterior Bilateral Throughout] Blood Pressure 113/29 130/29 128/28 O2 Sat by Pulse 96 95 96 Oximetry 03/20/19 03/20/19 03/20/19 22:00 22:30 22:48 Temperature Pulse Rate 99 H 102 H 98 H Pulse Rate [ Anterior Bilateral Throughout] Pulse Rate [ From Monitor] Respiratory 28 H 28 H 29 H Rate Respiratory Rate [Anterior Bilateral Throughout] Blood Pressure 122/29 128/39 123/37 O2 Sat by Pulse 96 93 93 Oximetry 03/20/19 03/20/19 03/20/19 23:00 23:04 23:16 Temperature Pulse Rate 103 H 98 H Pulse Rate [ 91 H Anterior Bilateral Throughout] Pulse Rate [ From Monitor] Respiratory 30 H Rate Respiratory 24 Rate [Anterior Bilateral Throughout] Blood Pressure 125/38 125/38 O2 Sat by Pulse 93 93 Oximetry 03/20/19 03/20/19 03/21/19 23:30 23:32 00:00 Temperature 98.8 F Pulse Rate 95 H 97 H Pulse Rate [ 95 H Anterior Bilateral Throughout] Pulse Rate [ 96 H From Monitor] Respiratory 17 28 H Rate Respiratory 25 H Rate [Anterior Bilateral Throughout] Blood Pressure 116/26 128/18 O2 Sat by Pulse 92 94 Oximetry 03/21/19 03/21/19 03/21/19 00:30 00:36 01:00 Temperature 98.3 F Pulse Rate 97 H 98 H Pulse Rate [ Anterior Bilateral Throughout] Pulse Rate [ From Monitor] Respiratory 28 H 27 H Rate Respiratory Rate [Anterior Bilateral Throughout] Blood Pressure 120/38 127/34 O2 Sat by Pulse 95 95 Oximetry 07/05/19 07/05/19 07/05/19 01:30 02:00 02:30 Temperature Pulse Rate 98 H 99 H 101 H Pulse Rate [ Anterior Bilateral Throughout] Pulse Rate [ From Monitor] Respiratory 28 H 30 H 30 H Rate Respiratory Rate [Anterior Bilateral Throughout] Blood Pressure 137/39 137/21 O2 Sat by Pulse 95 97 96 Oximetry 03/21/19 03/21/19 03/21/19 03:00 03:07 03:30 Temperature Pulse Rate 102 H 107 H Pulse Rate [ Anterior Bilateral Throughout] Pulse Rate [ From Monitor] Respiratory 32 H 33 H Rate Respiratory Rate [Anterior Bilateral Throughout] Blood Pressure 143/39 134/32 132/43 O2 Sat by Pulse 94 93 94 Oximetry 03/21/19 03/21/19 03/21/19 04:00 04:23 04:30 Temperature 103.2 F H 103.0 F H Pulse Rate 108 H 117 H Pulse Rate [ Anterior Bilateral Throughout] Pulse Rate [ 109 H From Monitor] Respiratory 33 H 41 H Rate Respiratory Rate [Anterior Bilateral Throughout] Blood Pressure 129/45 158/62 O2 Sat by Pulse 93 91 Oximetry 03/21/19 03/21/19 03/21/19 05:00 05:30 06:00 Temperature Pulse Rate 116 H 110 H 108 H Pulse Rate [ Anterior Bilateral Throughout] Pulse Rate [ From Monitor] Respiratory 36 H 40 H 39 H Rate Respiratory Rate [Anterior Bilateral Throughout] Blood Pressure 105/62 116/52 122/51 O2 Sat by Pulse 94 96 97 Oximetry 03/21/19 03/21/19 07:37 07:53 Temperature Pulse Rate 104 H Pulse Rate [ 100 H Anterior Bilateral Throughout] Pulse Rate [ From Monitor] Respiratory Rate Respiratory 38 H Rate [Anterior Bilateral Throughout] Blood Pressure 146/70 O2 Sat by Pulse 99 Oximetry - Laboratory Findings CBC and BMP: 03/20/19 04:45 03/20/19 04:45 Abnormal Lab Findings: Abnormal Labs 03/10/19 03/10/19 03/10/19 17:57 17:57 17:57 WBC 1.2 L* RBC 2.46 L Hgb 7.9 L Hct 23.2 L MCV MCHC RDW 18.2 H Plt Count 47 L [place] # 0.9 H Seg Neuts % (Manual) 6.0 L Lymphocytes % (Manual) 74.0 H Monocytes % (Manual) 20.0 H Nucleated RBC % Seg Neutrophils # 0.1 L Seg Neutrophils # Man 0.1 L Lymphocytes # (Manual) 0.9 L Monocytes # (Manual) INR POC ABG pH POC ABG pCO2 POC ABG pO2 Potassium Chloride Carbon Dioxide BUN 46 H Creatinine 2.9 H Glucose 200 H POC Glucose Lactic Acid 2.50 H* Calcium 7.6 L Total Bilirubin AST ALT Lactate Dehydrogenase Total Creatine Kinase CK-MB (CK-2) Troponin T Total Protein Albumin 3.2 L Cholesterol LDL Cholesterol Direct HDL Cholesterol Urine WBC (Auto) Crossmatch 03/10/19 03/10/19 03/10/19 17:57 18:01 18:52 WBC RBC Hgb Hct MCV MCHC RDW Plt Count [place] # Seg Neuts % (Manual) Lymphocytes % (Manual) Monocytes % (Manual) Nucleated RBC % Seg Neutrophils # Seg Neutrophils # Man Lymphocytes # (Manual) Monocytes # (Manual) INR 1.15 H POC ABG pH POC ABG pCO2 POC ABG pO2 Potassium Chloride Carbon Dioxide BUN Creatinine Glucose POC Glucose 234 H Lactic Acid Calcium Total Bilirubin AST ALT Lactate Dehydrogenase Total Creatine Kinase CK-MB (CK-2) Troponin T Total Protein Albumin Cholesterol LDL Cholesterol Direct HDL Cholesterol Urine WBC (Auto) Crossmatch See Detail 03/10/19 03/10/19 03/10/19 19:16 21:32 23:06 WBC RBC Hgb Hct MCV MCHC RDW Plt Count [place] # Seg Neuts % (Manual) Lymphocytes % (Manual) Monocytes % (Manual) Nucleated RBC % Seg Neutrophils # Seg Neutrophils # Man Lymphocytes # (Manual) Monocytes # (Manual) INR POC ABG pH POC ABG pCO2 POC ABG pO2 315 H Potassium Chloride Carbon Dioxide BUN Creatinine Glucose POC Glucose Lactic Acid 2.80 H* Calcium Total Bilirubin AST ALT Lactate Dehydrogenase Total Creatine Kinase CK-MB (CK-2) Troponin T Total Protein Albumin Cholesterol LDL Cholesterol Direct HDL Cholesterol Urine WBC (Auto) 24.0 H Crossmatch 03/10/19 03/11/19 03/11/19 23:29 00:50 05:01 WBC RBC 2.29 L Hgb 7.3 L Hct 22.2 L MCV 97 H MCHC RDW 18.2 H Plt Count 40 L [place] # Seg Neuts % (Manual) 8.0 L Lymphocytes % (Manual) 67.0 H Monocytes % (Manual) 24.0 H Nucleated RBC % 5.0 H Seg Neutrophils # Seg Neutrophils # Man 0.4 L Lymphocytes # (Manual) Monocytes # (Manual) 1.2 H INR POC ABG pH POC ABG pCO2 POC ABG pO2 Potassium Chloride Carbon Dioxide BUN Creatinine Glucose POC Glucose 237 H Lactic Acid Calcium Total Bilirubin AST ALT Lactate Dehydrogenase Total Creatine Kinase 513 H CK-MB (CK-2) Troponin T 0.075 H Total Protein Albumin Cholesterol < 4 L LDL Cholesterol Direct 4 L HDL Cholesterol < 3 L Urine WBC (Auto) Crossmatch 03/11/19 03/11/19 03/11/19 05:01 06:06 06:07 WBC RBC Hgb Hct MCV MCHC RDW Plt Count [place] # Seg Neuts % (Manual) Lymphocytes % (Manual) Monocytes % (Manual) Nucleated RBC % Seg Neutrophils # Seg Neutrophils # Man Lymphocytes # (Manual) Monocytes # (Manual) INR POC ABG pH POC ABG pCO2 32.8 L POC ABG pO2 Potassium 5.3 H Chloride Carbon Dioxide 19 L BUN 49 H Creatinine 3.7 H Glucose 203 H POC Glucose Lactic Acid Calcium 7.1 L Total Bilirubin AST ALT Lactate Dehydrogenase Total Creatine Kinase 1156 H CK-MB (CK-2) 4.6 H Troponin T 0.077 H Total Protein Albumin Cholesterol LDL Cholesterol Direct HDL Cholesterol Urine WBC (Auto) Crossmatch 03/11/19 03/11/19 03/11/19 06:35 13:07 18:36 WBC RBC Hgb Hct MCV MCHC RDW Plt Count [place] # Seg Neuts % (Manual) Lymphocytes % (Manual) Monocytes % (Manual) Nucleated RBC % Seg Neutrophils # Seg Neutrophils # Man Lymphocytes # (Manual) Monocytes # (Manual) INR POC ABG pH POC ABG pCO2 POC ABG pO2 Potassium Chloride Carbon Dioxide BUN Creatinine Glucose POC Glucose 209 H 185 H 126 H Lactic Acid Calcium Total Bilirubin AST ALT Lactate Dehydrogenase Total Creatine Kinase CK-MB (CK-2) Troponin T Total Protein Albumin Cholesterol LDL Cholesterol Direct HDL Cholesterol Urine WBC (Auto) Crossmatch 03/11/19 03/12/19 03/12/19 23:45 04:25 05:06 WBC RBC 2.24 L Hgb 7.2 L Hct 21.9 L MCV 98 H MCHC RDW 18.3 H Plt Count 38 L [place] # Seg Neuts % (Manual) 4.0 L Lymphocytes % (Manual) Monocytes % (Manual) 69.0 H Nucleated RBC % Seg Neutrophils # Seg Neutrophils # Man 0.3 L Lymphocytes # (Manual) Monocytes # (Manual) 4.9 H INR POC ABG pH 7.320 L POC ABG pCO2 POC ABG pO2 Potassium Chloride Carbon Dioxide BUN Creatinine Glucose POC Glucose 137 H Lactic Acid Calcium Total Bilirubin AST ALT Lactate Dehydrogenase Total Creatine Kinase CK-MB (CK-2) Troponin T Total Protein Albumin Cholesterol LDL Cholesterol Direct HDL Cholesterol Urine WBC (Auto) Crossmatch 03/12/19 03/12/19 03/12/19 05:06 05:57 07:19 WBC RBC Hgb Hct MCV MCHC RDW Plt Count [place] # Seg Neuts % (Manual) Lymphocytes % (Manual) Monocytes % (Manual) Nucleated RBC % Seg Neutrophils # Seg Neutrophils # Man Lymphocytes # (Manual) Monocytes # (Manual) INR POC ABG pH POC ABG pCO2 POC ABG pO2 Potassium 6.6 H* D 6.6 H* Chloride Carbon Dioxide 17 L BUN 66 H Creatinine 5.6 H D Glucose 149 H POC Glucose 165 H Lactic Acid Calcium 6.5 L Total Bilirubin 1.90 H AST 782 H ALT 382 H Lactate Dehydrogenase Total Creatine Kinase CK-MB (CK-2) Troponin T Total Protein 5.7 L Albumin 2.7 L Cholesterol LDL Cholesterol Direct HDL Cholesterol Urine WBC (Auto) Crossmatch 03/12/19 03/12/19 03/12/19 15:24 18:55 23:45 WBC RBC Hgb Hct MCV MCHC RDW Plt Count [place] # Seg Neuts % (Manual) Lymphocytes % (Manual) Monocytes % (Manual) Nucleated RBC % Seg Neutrophils # Seg Neutrophils # Man Lymphocytes # (Manual) Monocytes # (Manual) INR POC ABG pH POC ABG pCO2 POC ABG pO2 Potassium Chloride Carbon Dioxide BUN Creatinine Glucose POC Glucose 167 H 212 H 197 H Lactic Acid Calcium Total Bilirubin AST ALT Lactate Dehydrogenase Total Creatine Kinase CK-MB (CK-2) Troponin T Total Protein Albumin Cholesterol LDL Cholesterol Direct HDL Cholesterol Urine WBC (Auto) Crossmatch 03/13/19 03/13/19 03/13/19 05:37 09:11 09:11 WBC RBC 1.99 L Hgb 6.4 L Hct 18.7 L* MCV MCHC RDW 18.5 H Plt Count 36 L [place] # Seg Neuts % (Manual) Lymphocytes % (Manual) Monocytes % (Manual) Nucleated RBC % Seg Neutrophils # Seg Neutrophils # Man Lymphocytes # (Manual) Monocytes # (Manual) INR POC ABG pH POC ABG pCO2 POC ABG pO2 Potassium Chloride Carbon Dioxide BUN 52 H Creatinine 5.5 H Glucose 235 H POC Glucose 250 H Lactic Acid Calcium 6.2 L Total Bilirubin AST ALT Lactate Dehydrogenase Total Creatine Kinase CK-MB (CK-2) Troponin T Total Protein Albumin Cholesterol LDL Cholesterol Direct HDL Cholesterol Urine WBC (Auto) Crossmatch 03/13/19 03/13/19 03/13/19 11:06 12:38 18:11 WBC RBC 2.07 L Hgb 6.6 L Hct 19.6 L* MCV 95 H MCHC RDW 18.5 H Plt Count 33 L [place] # Seg Neuts % (Manual) Lymphocytes % (Manual) Monocytes % (Manual) Nucleated RBC % Seg Neutrophils # Seg Neutrophils # Man Lymphocytes # (Manual) Monocytes # (Manual) INR POC ABG pH POC ABG pCO2 POC ABG pO2 Potassium Chloride Carbon Dioxide BUN Creatinine Glucose POC Glucose 268 H 255 H Lactic Acid Calcium Total Bilirubin AST ALT Lactate Dehydrogenase Total Creatine Kinase CK-MB (CK-2) Troponin T Total Protein Albumin Cholesterol LDL Cholesterol Direct HDL Cholesterol Urine WBC (Auto) Crossmatch 03/13/19 03/13/19 03/13/19 19:12 20:58 23:49 WBC RBC Hgb Hct MCV MCHC RDW Plt Count [place] # Seg Neuts % (Manual) Lymphocytes % (Manual) Monocytes % (Manual) Nucleated RBC % Seg Neutrophils # Seg Neutrophils # Man Lymphocytes # (Manual) Monocytes # (Manual) INR POC ABG pH 7.466 H POC ABG pCO2 POC ABG pO2 Potassium Chloride Carbon Dioxide BUN Creatinine Glucose POC Glucose 289 H Lactic Acid Calcium Total Bilirubin AST ALT Lactate Dehydrogenase Total Creatine Kinase CK-MB (CK-2) Troponin T Total Protein Albumin Cholesterol LDL Cholesterol Direct HDL Cholesterol Urine WBC (Auto) Crossmatch See Detail 03/14/19 03/14/19 03/14/19 05:51 11:39 13:43 WBC 14.0 H RBC 2.78 L Hgb 8.9 L Hct 26.0 L D MCV MCHC RDW 17.9 H Plt Count 42 L [place] # Seg Neuts % (Manual) 2.0 L Lymphocytes % (Manual) 84.0 H Monocytes % (Manual) 13.0 H Nucleated RBC % Seg Neutrophils # Seg Neutrophils # Man 0.3 L Lymphocytes # (Manual) 11.8 H Monocytes # (Manual) 1.8 H INR POC ABG pH POC ABG pCO2 POC ABG pO2 Potassium Chloride Carbon Dioxide BUN Creatinine Glucose POC Glucose 305 H 283 H Lactic Acid Calcium Total Bilirubin AST ALT Lactate Dehydrogenase Total Creatine Kinase CK-MB (CK-2) Troponin T Total Protein Albumin Cholesterol LDL Cholesterol Direct HDL Cholesterol Urine WBC (Auto) Crossmatch 03/14/19 03/15/19 03/15/19 18:12 00:43 04:24 WBC RBC Hgb Hct MCV MCHC RDW Plt Count [place] # Seg Neuts % (Manual) Lymphocytes % (Manual) Monocytes % (Manual) Nucleated RBC % Seg Neutrophils # Seg Neutrophils # Man Lymphocytes # (Manual) Monocytes # (Manual) INR POC ABG pH 7.497 H POC ABG pCO2 34.0 L POC ABG pO2 Potassium Chloride Carbon Dioxide BUN Creatinine Glucose POC Glucose 313 H 236 H Lactic Acid Calcium Total Bilirubin AST ALT Lactate Dehydrogenase Total Creatine Kinase CK-MB (CK-2) Troponin T Total Protein Albumin Cholesterol LDL Cholesterol Direct HDL Cholesterol Urine WBC (Auto) Crossmatch 03/15/19 03/15/19 03/15/19 07:15 07:15 07:24 WBC 16.1 H RBC 2.50 L Hgb 8.1 L Hct 23.4 L MCV MCHC 35 H RDW 18.5 H Plt Count 42 L [place] # Seg Neuts % (Manual) 2.0 L Lymphocytes % (Manual) 41.0 H Monocytes % (Manual) 11.0 H Nucleated RBC % Seg Neutrophils # Seg Neutrophils # Man 0.3 L Lymphocytes # (Manual) 6.6 H Monocytes # (Manual) 1.8 H INR POC ABG pH POC ABG pCO2 POC ABG pO2 Potassium Chloride 96.0 L Carbon Dioxide BUN 47 H Creatinine 5.0 H Glucose 287 H POC Glucose 285 H Lactic Acid Calcium 7.2 L D Total Bilirubin AST 522 H ALT 474 H Lactate Dehydrogenase Total Creatine Kinase CK-MB (CK-2) Troponin T Total Protein 5.7 L Albumin 2.4 L Cholesterol LDL Cholesterol Direct HDL Cholesterol Urine WBC (Auto) Crossmatch 03/15/19 03/15/19 03/15/19 11:18 17:12 23:19 WBC RBC Hgb Hct MCV MCHC RDW Plt Count [place] # Seg Neuts % (Manual) Lymphocytes % (Manual) Monocytes % (Manual) Nucleated RBC % Seg Neutrophils # Seg Neutrophils # Man Lymphocytes # (Manual) Monocytes # (Manual) INR POC ABG pH POC ABG pCO2 POC ABG pO2 Potassium Chloride Carbon Dioxide BUN Creatinine Glucose POC Glucose 287 H 221 H 297 H Lactic Acid Calcium Total Bilirubin AST ALT Lactate Dehydrogenase Total Creatine Kinase CK-MB (CK-2) Troponin T Total Protein Albumin Cholesterol LDL Cholesterol Direct HDL Cholesterol Urine WBC (Auto) Crossmatch 03/16/19 03/16/19 03/16/19 03:49 05:26 11:26 WBC RBC Hgb Hct MCV MCHC RDW Plt Count [place] # Seg Neuts % (Manual) Lymphocytes % (Manual) Monocytes % (Manual) Nucleated RBC % Seg Neutrophils # Seg Neutrophils # Man Lymphocytes # (Manual) Monocytes # (Manual) INR POC ABG pH 7.487 H POC ABG pCO2 34.3 L POC ABG pO2 254 H Potassium Chloride Carbon Dioxide BUN Creatinine Glucose POC Glucose 271 H 298 H Lactic Acid Calcium Total Bilirubin AST ALT Lactate Dehydrogenase Total Creatine Kinase CK-MB (CK-2) Troponin T Total Protein Albumin Cholesterol LDL Cholesterol Direct HDL Cholesterol Urine WBC (Auto) Crossmatch 03/16/19 03/16/19 03/17/19 17:55 23:47 04:08 WBC RBC Hgb Hct MCV MCHC RDW Plt Count [place] # Seg Neuts % (Manual) Lymphocytes % (Manual) Monocytes % (Manual) Nucleated RBC % Seg Neutrophils # Seg Neutrophils # Man Lymphocytes # (Manual) Monocytes # (Manual) INR POC ABG pH 7.491 H POC ABG pCO2 31.1 L POC ABG pO2 70 L Potassium Chloride Carbon Dioxide BUN Creatinine Glucose POC Glucose 304 H 260 H Lactic Acid Calcium Total Bilirubin AST ALT Lactate Dehydrogenase Total Creatine Kinase CK-MB (CK-2) Troponin T Total Protein Albumin Cholesterol LDL Cholesterol Direct HDL Cholesterol Urine WBC (Auto) Crossmatch 03/17/19 03/17/19 03/17/19 05:30 05:30 05:55 WBC 18.8 H RBC 2.13 L Hgb 6.9 L Hct 20.0 L MCV MCHC 35 H RDW 18.4 H Plt Count 34 L [place] # Seg Neuts % (Manual) Lymphocytes % (Manual) Monocytes % (Manual) Nucleated RBC % Seg Neutrophils # Seg Neutrophils # Man Lymphocytes # (Manual) Monocytes # (Manual) INR POC ABG pH POC ABG pCO2 POC ABG pO2 Potassium 3.5 L Chloride 96.6 L Carbon Dioxide BUN 86 H Creatinine 7.4 H Glucose 222 H POC Glucose 218 H Lactic Acid Calcium 6.9 L Total Bilirubin AST ALT Lactate Dehydrogenase Total Creatine Kinase CK-MB (CK-2) Troponin T Total Protein Albumin Cholesterol LDL Cholesterol Direct HDL Cholesterol Urine WBC (Auto) Crossmatch 03/17/19 03/17/19 03/17/19 12:09 13:06 17:37 WBC RBC Hgb Hct MCV MCHC RDW Plt Count [place] # Seg Neuts % (Manual) Lymphocytes % (Manual) Monocytes % (Manual) Nucleated RBC % Seg Neutrophils # Seg Neutrophils # Man Lymphocytes # (Manual) Monocytes # (Manual) INR POC ABG pH POC ABG pCO2 POC ABG pO2 Potassium Chloride Carbon Dioxide BUN Creatinine Glucose POC Glucose 246 H 253 H Lactic Acid Calcium Total Bilirubin AST ALT Lactate Dehydrogenase Total Creatine Kinase CK-MB (CK-2) Troponin T Total Protein Albumin Cholesterol LDL Cholesterol Direct HDL Cholesterol Urine WBC (Auto) Crossmatch See Detail 03/18/19 03/18/19 03/18/19 00:06 04:49 05:43 WBC RBC Hgb Hct MCV MCHC RDW Plt Count [place] # Seg Neuts % (Manual) Lymphocytes % (Manual) Monocytes % (Manual) Nucleated RBC % Seg Neutrophils # Seg Neutrophils # Man Lymphocytes # (Manual) Monocytes # (Manual) INR POC ABG pH 7.569 H POC ABG pCO2 30.6 L POC ABG pO2 Potassium Chloride Carbon Dioxide BUN Creatinine Glucose POC Glucose 233 H 310 H Lactic Acid Calcium Total Bilirubin AST ALT Lactate Dehydrogenase Total Creatine Kinase CK-MB (CK-2) Troponin T Total Protein Albumin Cholesterol LDL Cholesterol Direct HDL Cholesterol Urine WBC (Auto) Crossmatch 03/18/19 03/18/19 03/18/19 05:45 12:09 17:43 WBC 28.3 H RBC 2.50 L Hgb 8.1 L Hct 23.4 L MCV MCHC 35 H RDW 17.7 H Plt Count 36 L [place] # Seg Neuts % (Manual) 0 L Lymphocytes % (Manual) 4.0 L Monocytes % (Manual) Nucleated RBC % 1.0 H Seg Neutrophils # Seg Neutrophils # Man 0.0 L Lymphocytes # (Manual) 1.1 L Monocytes # (Manual) 1.4 H INR POC ABG pH POC ABG pCO2 POC ABG pO2 Potassium Chloride Carbon Dioxide BUN Creatinine Glucose POC Glucose 258 H 252 H Lactic Acid Calcium Total Bilirubin AST ALT Lactate Dehydrogenase Total Creatine Kinase CK-MB (CK-2) Troponin T Total Protein Albumin Cholesterol LDL Cholesterol Direct HDL Cholesterol Urine WBC (Auto) Crossmatch 03/19/19 03/19/19 03/19/19 00:04 06:15 06:15 WBC RBC Hgb Hct MCV MCHC RDW Plt Count [place] # Seg Neuts % (Manual) Lymphocytes % (Manual) Monocytes % (Manual) Nucleated RBC % Seg Neutrophils # Seg Neutrophils # Man Lymphocytes # (Manual) Monocytes # (Manual) INR POC ABG pH POC ABG pCO2 POC ABG pO2 Potassium Chloride 96.7 L Carbon Dioxide BUN 60 H Creatinine 5.4 H Glucose 249 H POC Glucose 215 H Lactic Acid Calcium 7.6 L Total Bilirubin AST ALT Lactate Dehydrogenase 853 H Total Creatine Kinase CK-MB (CK-2) Troponin T Total Protein Albumin Cholesterol LDL Cholesterol Direct HDL Cholesterol Urine WBC (Auto) Crossmatch 03/19/19 03/19/19 03/19/19 06:17 12:51 18:18 WBC RBC Hgb Hct MCV MCHC RDW Plt Count [place] # Seg Neuts % (Manual) Lymphocytes % (Manual) Monocytes % (Manual) Nucleated RBC % Seg Neutrophils # Seg Neutrophils # Man Lymphocytes # (Manual) Monocytes # (Manual) INR POC ABG pH POC ABG pCO2 POC ABG pO2 Potassium Chloride Carbon Dioxide BUN Creatinine Glucose POC Glucose 301 H 278 H 252 H Lactic Acid Calcium Total Bilirubin AST ALT Lactate Dehydrogenase Total Creatine Kinase CK-MB (CK-2) Troponin T Total Protein Albumin Cholesterol LDL Cholesterol Direct HDL Cholesterol Urine WBC (Auto) Crossmatch 03/19/19 03/20/19 03/20/19 23:58 04:45 04:45 WBC 39.9 H RBC 2.51 L Hgb 8.0 L Hct 24.1 L MCV 96 H MCHC RDW 18.2 H Plt Count 51 L [place] # Seg Neuts % (Manual) Lymphocytes % (Manual) Monocytes % (Manual) Nucleated RBC % Seg Neutrophils # Seg Neutrophils # Man Lymphocytes # (Manual) Monocytes # (Manual) INR POC ABG pH POC ABG pCO2 POC ABG pO2 Potassium Chloride Carbon Dioxide BUN 51 H Creatinine 5.1 H Glucose 221 H POC Glucose 233 H Lactic Acid Calcium 7.8 L Total Bilirubin AST ALT Lactate Dehydrogenase Total Creatine Kinase CK-MB (CK-2) Troponin T Total Protein Albumin Cholesterol LDL Cholesterol Direct HDL Cholesterol Urine WBC (Auto) Crossmatch 03/20/19 03/20/19 03/20/19 05:52 11:43 17:48 WBC RBC Hgb Hct MCV MCHC RDW Plt Count [place] # Seg Neuts % (Manual) Lymphocytes % (Manual) Monocytes % (Manual) Nucleated RBC % Seg Neutrophils # Seg Neutrophils # Man Lymphocytes # (Manual) Monocytes # (Manual) INR POC ABG pH POC ABG pCO2 POC ABG pO2 Potassium Chloride Carbon Dioxide BUN Creatinine Glucose POC Glucose 256 H 316 H 286 H Lactic Acid Calcium Total Bilirubin AST ALT Lactate Dehydrogenase Total Creatine Kinase CK-MB (CK-2) Troponin T Total Protein Albumin Cholesterol LDL Cholesterol Direct HDL Cholesterol Urine WBC (Auto) Crossmatch 03/21/19 03/21/19 00:17 06:21 WBC RBC Hgb Hct MCV MCHC RDW Plt Count [place] # Seg Neuts % (Manual) Lymphocytes % (Manual) Monocytes % (Manual) Nucleated RBC % Seg Neutrophils # Seg Neutrophils # Man Lymphocytes # (Manual) Monocytes # (Manual) INR POC ABG pH POC ABG pCO2 POC ABG pO2 Potassium Chloride Carbon Dioxide BUN Creatinine Glucose POC Glucose 212 H 256 H Lactic Acid Calcium Total Bilirubin AST ALT Lactate Dehydrogenase Total Creatine Kinase CK-MB (CK-2) Troponin T Total Protein Albumin Cholesterol LDL Cholesterol Direct HDL Cholesterol Urine WBC (Auto) Crossmatch
[2019-03-21] MEDS: PROAMATINE PO SCH ×3 (08:42→16:38)
[2019-03-21] MEDS: LANTUS SUB-Q SCH (08:43)
[2019-03-21] MEDS: PREVACID SOLUTAB FEEDTUBE SCH (09:50)
--- NOTE | 2019-03-21 11:22 | Progress Note ---
Assessment and Plan Cultures: Blood culture 03/10/2019 Group-A Strep 2 of 4 bottles Tracheal asp 03/10/2019 poor specimen Blood culture 03/12/2019 no growth today C diff negative 03/14/2019 trach aspirate culture: no growth Assessment: 54 y/o male with history of diabetes, hypertension, chronic kidney disease, coronary artery disease admitted on 03/10/2019 due to a week history of facial/mouth pain (?dental pain) associated with generalized weakness, cold sensation, cough with sputum production and body aches, 48 hour-history of sore throat, in the ED patient went into PEA arrest s/p CPR: 1) Severe Sepsis with PEA arrest and transient shock post arrest: Etiology likely due to GAS bacteremia. CXR and CT chest no consolidations. 2) Invasive Group-A Strep bacteremia/toxic shock syndrome: source unclear ?tonsillopharingitis, ?dental abscess, ?early aspiration pneumonia. Blood culture 03/10/2019 Group-A Strep [address] face showed a small right mandibular premolar abscess, poor dentition and chronic sinusitis. TTE no vegetations. 3) Acute encephalopathy: not better; post arrest +/- due to infection ? ischemic brain injury. CT head some indistinctness and loss of dean-white matter differentiation and indistinct visualization of the basal ganglia. This is non specific finding but may be seen with diffuse hypoxic ischemic brain injury. 4) Acute respiratory failure: intubated. CT chest without contrast shows pericardial effusion measuring up to 1.4 cm in transverse diameter, posterior atelectasis both lungs. Minimal pleural fluid collection. 5) AML: per peripheral flow cytometry, Discussed with Dr. Cleaning. Extremely poor prognosis. 6) ISMAEL on CKD: renally adjusted meds. Now on HD through fem vas cath 7) Elevated LFTs: probably from shock and sepsis. Recommendations: - continue IV Ceftriaxone for now - peripheral flow cytometry suggestive of AML. Discussed with Dr. Cleaning. Extremely poor prognosis, not a candidate for chemotherapy - mental status remains poor - palliative care D/W Dr. Cleaning and Dr. Orourke. Dimple Horton MD, FACP [facility] C: [phone] O: [phone] F: [phone] Subjective Date of service: 03/21/19 Principal diagnosis: high wbc - blasts Interval history: Remains unresponsive. Fever +. On the vent. Intermittent pressor requirement, sharla when on dialysis. Objective - Exam Narrative Exam: Physical Exam: Constitutional: intubated. Obese Head, Ears, Nose: Normocephalic, atraumatic. External ears, nose normal Eyes: Conjunctivae/corneas clear. No icterus. No ptosis. Neck: intubated Oral: intubated Cardiovascular: S1, S2 normal. Respiratory: Good air entry, clear to auscultation bilaterally GI: Soft, non-tender; bowel sounds normal. No peritoneal signs. Rectal tube + Musculoskeletal: 1+ pedal edema. Obese Skin: No rash or abscess. Superficial wounds on sacral region Hem/Lymphatic: No palpable cervical or supraclavicular nodes. No lymphangitis Psych: no agitation Neurological: intubated, on vent - Constitutional Vitals: Vital Signs Temp Pulse Resp BP Pulse Ox 98.7 F 94 H 33 H 127/43 98 03/21/19 09:49 03/21/19 10:00 03/21/19 10:00 03/21/19 10:00 03/21/19 10:00 Temperature -Last 24 Hours Temperature 98.7 F Temperature 100 F Temperature 103.0 F Temperature 103.2 F Temperature 98.3 F Temperature 98.8 F Temperature 99.5 F Temperature 99.1 F Temperature 99.2 F Temperature 99.4 F - Labs CBC & Chem 7: 03/20/19 04:45 03/20/19 04:45 Labs: Abnormal lab results 03/20/19 03/20/19 03/21/19 Range/Units 11:43 17:48 00:17 POC Glucose 316 H 286 H 212 H (70-105) 03/21/19 03/21/19 Range/Units 06:21 08:00 POC Glucose 256 H 285 H (70-105)
--- NOTE | 2019-03-21 12:25 | Progress Note ---
Assessment and Plan -s/p Cardiopulmonary arrest with ROSC -Acute on chronic hypoxemic respiratory failure on MVS -Severe sepsis with septic shock - Streptococcal -Acute on chronic renal failure (multifactorial) -Acute metabolic-toxic encephalopathy -Morbid obesity -h/o CAD s/p 2 stents -Pancytopenia- probably secondary to sepsis and underlying chronic liver disease -Type 2 DM -h/o Alcohol abuse disorder -EEG pending, neurology to read report -Stress dose steroids for possible sepsis induced relative adrenal insufficiency( 5 days of therapy then discontinue) -Lung protective strategies -Serial CXR and ABG -VAP bundle addressed -Critical care bundles addressed -Daily SATs and SBTs as tolerated -Supplemental oxygen to keep O2 sats 90-92% -Bronchodilators -Accuchecks with glycemic control. Target blood glucose <180mg/dL -Enteric nutrition with aspiration precautions, HOB>40 -Agitation management -Titrate sedation to RAAS 0 to -1 -Prevention of delirium, maintenance of sleep-wake cycle -Antibiotic therapy per ID -Trend hematologic indices -Avoid nephrotoxic agents, adjust all antibiotics and medications for CrCL and GFR -VTE ( SCDs) and Stress ulcer prophylaxis CONDITION: CRITICAL PROGNOSIS: GUARDED CODE STATUS: FULL CODE Discussed extensively with the patient's daughter and his sister who were at the bedside. All their questions were answered. Discussed with the Renal service and with RT/RN The high probability of a clinically significant, sudden or life-threatening deterioration of the [respiratory, cardiovascular, renal, neurology] system(s) required my full and direct attention, intervention and personal management. The aggregate critical care time was [35 ] minutes without overlap. Time includes s pent on; [x] Data Review and interpretation [x] Patient assessment and monitoring of vital signs [x] Documentation [x] Medication orders and management Subjective Date of service: 03/21/19 Principal diagnosis: high wbc - blasts Interval history: Patient is seen today for: s/p cardiopulmonary arrest, acute hypoxemic respiratory failure, ISMAEL, Severe hyperkalemia, Severe sepsis; ISMAEL onCKD on HD Seen and examined at bedside; 24hour events reviewed; nursing and respiratory care staff consulted; no adverse overnight events reported to me; vitals, labs, medications, chart reviewed. Temperature spike to 100.4, no vomiting, opens eyes spontaneously Remains critically ill. On full mechanical ventilatory support AC 12/450/6/35% ABG 7.50/34/86/26 ETT 7.5cm at 23cm at the lip. 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 Objective Vital Signs - 12hr 03/21/19 03/21/19 03/21/19 00:30 00:36 01:00 Temperature 98.3 F Pulse Rate 97 H 98 H Pulse Rate [ Anterior Bilateral Throughout] Pulse Rate [ From Monitor] Respiratory 28 H 27 H Rate Respiratory Rate [Anterior Bilateral Throughout] Blood Pressure 120/38 127/34 O2 Sat by Pulse 95 95 Oximetry O2 Sat by Pulse Oximetry [ Anterior Bilateral Throughout] 03/21/19 03/21/19 03/21/19 01:30 02:00 02:30 Temperature Pulse Rate 98 H 99 H 101 H Pulse Rate [ Anterior Bilateral Throughout] Pulse Rate [ From Monitor] Respiratory 28 H 30 H 30 H Rate Respiratory Rate [Anterior Bilateral Throughout] Blood Pressure 137/39 137/21 O2 Sat by Pulse 95 97 96 Oximetry O2 Sat by Pulse Oximetry [ Anterior Bilateral Throughout] 03/21/19 03/21/19 03/21/19 03:00 03:07 03:30 Temperature Pulse Rate 102 H 107 H Pulse Rate [ Anterior Bilateral Throughout] Pulse Rate [ From Monitor] Respiratory 32 H 33 H Rate Respiratory Rate [Anterior Bilateral Throughout] Blood Pressure 143/39 134/32 132/43 O2 Sat by Pulse 94 93 94 Oximetry O2 Sat by Pulse Oximetry [ Anterior Bilateral Throughout] 03/21/19 03/21/19 03/21/19 04:00 04:23 04:30 Temperature 103.2 F H 103.0 F H Pulse Rate 108 H 117 H Pulse Rate [ Anterior Bilateral Throughout] Pulse Rate [ 109 H From Monitor] Respiratory 33 H 41 H Rate Respiratory Rate [Anterior Bilateral Throughout] Blood Pressure 129/45 158/62 O2 Sat by Pulse 93 91 Oximetry O2 Sat by Pulse Oximetry [ Anterior Bilateral Throughout] 03/21/19 03/21/19 03/21/19 05:00 05:30 06:00 Temperature Pulse Rate 116 H 110 H 108 H Pulse Rate [ Anterior Bilateral Throughout] Pulse Rate [ From Monitor] Respiratory 36 H 40 H 39 H Rate Respiratory Rate [Anterior Bilateral Throughout] Blood Pressure 105/62 116/52 122/51 O2 Sat by Pulse 94 96 97 Oximetry O2 Sat by Pulse Oximetry [ Anterior Bilateral Throughout] 03/21/19 03/21/19 03/21/19 06:30 07:00 07:30 Temperature Pulse Rate 107 H 102 H 98 H Pulse Rate [ Anterior Bilateral Throughout] Pulse Rate [ From Monitor] Respiratory 41 H 41 H 33 H Rate Respiratory Rate [Anterior Bilateral Throughout] Blood Pressure 134/51 122/38 131/36 O2 Sat by Pulse 99 99 100 Oximetry O2 Sat by Pulse Oximetry [ Anterior Bilateral Throughout] 03/21/19 03/21/19 03/21/19 07:37 07:53 08:00 Temperature 100 F H Pulse Rate 104 H 97 H Pulse Rate [ 100 H Anterior Bilateral Throughout] Pulse Rate [ 101 H From Monitor] Respiratory 17 Rate Respiratory 38 H Rate [Anterior Bilateral Throughout] Blood Pressure 146/70 121/30 O2 Sat by Pulse 99 98 Oximetry O2 Sat by Pulse Oximetry [ Anterior Bilateral Throughout] 03/21/19 03/21/19 03/21/19 08:10 08:30 09:00 Temperature Pulse Rate 96 H 97 H Pulse Rate [ 97 H Anterior Bilateral Throughout] Pulse Rate [ From Monitor] Respiratory 17 33 H Rate Respiratory 26 H Rate [Anterior Bilateral Throughout] Blood Pressure 118/31 109/45 O2 Sat by Pulse 97 98 Oximetry O2 Sat by Pulse Oximetry [ Anterior Bilateral Throughout] 03/21/19 03/21/19 03/21/19 09:30 09:49 10:00 Temperature 98.7 F Pulse Rate 95 H 94 H Pulse Rate [ Anterior Bilateral Throughout] Pulse Rate [ From Monitor] Respiratory 39 H 33 H Rate Respiratory Rate [Anterior Bilateral Throughout] Blood Pressure 127/43 127/43 O2 Sat by Pulse 98 98 Oximetry O2 Sat by Pulse Oximetry [ Anterior Bilateral Throughout] 03/21/19 03/21/19 03/21/19 10:15 10:30 10:45 Temperature 98.7 F Pulse Rate 91 H 92 H 87 Pulse Rate [ Anterior Bilateral Throughout] Pulse Rate [ From Monitor] Respiratory 30 H 33 H Rate Respiratory Rate [Anterior Bilateral Throughout] Blood Pressure 140/80 120/38 129/26 O2 Sat by Pulse 98 Oximetry O2 Sat by Pulse 99 Oximetry [ Anterior Bilateral Throughout] 03/21/19 03/21/19 03/21/19 11:00 11:15 11:30 Temperature Pulse Rate 89 92 H 94 H Pulse Rate [ Anterior Bilateral Throughout] Pulse Rate [ From Monitor] Respiratory 32 H 36 H Rate Respiratory Rate [Anterior Bilateral Throughout] Blood Pressure 145/63 168/60 168/60 O2 Sat by Pulse 98 93 Oximetry O2 Sat by Pulse Oximetry [ Anterior Bilateral Throughout] 03/21/19 11:40 Temperature Pulse Rate 95 H Pulse Rate [ Anterior Bilateral Throughout] Pulse Rate [ From Monitor] Respiratory Rate Respiratory Rate [Anterior Bilateral Throughout] Blood Pressure 147/66 O2 Sat by Pulse 99 Oximetry O2 Sat by Pulse Oximetry [ Anterior Bilateral Throughout] Constitutional: no acute distress, other (m,iddle aged morbidly obese CM, normocephalic with mildly increased resp effort at rest on MVS) Eyes: non-icteric ENT: oropharynx moist, other (ETT 7.5 at 23 cm at the lip) Neck: supple, no lymphadenopathy, no JVD, other (large neck circumference) Effort: mildly labored Ascultation: Bilateral: diminished breath sounds, rhonchi (bases) Percussion: Bilateral: not dull Cardiovascular: regular rate and rhythm, other (No R/M) Gastrointestinal: normoactive bowel sounds, soft, non-tender, non-distended Integumentary: normal Extremities: no cyanosis, pink and warm, pulses normal, no ischemia or petechiae Neurologic: pupils equal and round, unable to assess, other (Encephalopathic) Psychiatric: other (unable to assess) CBC and BMP: 03/23/19 04:10 03/23/19 04:00 ABG, PT/INR, D-dimer: ABG POC ABG pH 7.398 (7.35-7.45) 03/19/19 03:48 POC ABG pCO2 43.5 (35-45) 03/19/19 03:48 POC ABG pO2 80 (80-105) 03/19/19 03:48 POC ABG HCO3 26.8 (22-26 mml/L) 03/19/19 03:48 POC ABG Total CO2 28 (23-27mmol/L) 03/19/19 03:48 POC ABG O2 Sat 96 03/19/19 03:48 PT/INR, D-dimer PT 14.4 Sec. (12.2-14.9) 03/10/19 17:57 INR 1.15 (0.87-1.13) H 06/24/19 17:57 Abnormal lab findings: Abnormal Labs 03/10/19 03/10/19 03/10/19 17:57 17:57 17:57 WBC 1.2 L* RBC 2.46 L Hgb 7.9 L Hct 23.2 L MCV MCHC RDW 18.2 H Plt Count 47 L [place] # 0.9 H Seg Neuts % (Manual) 6.0 L Lymphocytes % (Manual) 74.0 H Monocytes % (Manual) 20.0 H Nucleated RBC % Seg Neutrophils # 0.1 L Seg Neutrophils # Man 0.1 L Lymphocytes # (Manual) 0.9 L Monocytes # (Manual) INR POC ABG pH POC ABG pCO2 POC ABG pO2 Potassium Chloride Carbon Dioxide BUN 46 H Creatinine 2.9 H Glucose 200 H POC Glucose Lactic Acid 2.50 H* Calcium 7.6 L Total Bilirubin AST ALT Lactate Dehydrogenase Total Creatine Kinase CK-MB (CK-2) Troponin T Total Protein Albumin 3.2 L Cholesterol LDL Cholesterol Direct HDL Cholesterol Urine WBC (Auto) Crossmatch 03/10/19 03/10/19 03/10/19 17:57 18:01 18:52 WBC RBC Hgb Hct MCV MCHC RDW Plt Count [place] # Seg Neuts % (Manual) Lymphocytes % (Manual) Monocytes % (Manual) Nucleated RBC % Seg Neutrophils # Seg Neutrophils # Man Lymphocytes # (Manual) Monocytes # (Manual) INR 1.15 H POC ABG pH POC ABG pCO2 POC ABG pO2 Potassium Chloride Carbon Dioxide BUN Creatinine Glucose POC Glucose 234 H Lactic Acid Calcium Total Bilirubin AST ALT Lactate Dehydrogenase Total Creatine Kinase CK-MB (CK-2) Troponin T Total Protein Albumin Cholesterol LDL Cholesterol Direct HDL Cholesterol Urine WBC (Auto) Crossmatch See Detail 03/10/19 03/10/19 03/10/19 19:16 21:32 23:06 WBC RBC Hgb Hct MCV MCHC RDW Plt Count [place] # Seg Neuts % (Manual) Lymphocytes % (Manual) Monocytes % (Manual) Nucleated RBC % Seg Neutrophils # Seg Neutrophils # Man Lymphocytes # (Manual) Monocytes # (Manual) INR POC ABG pH POC ABG pCO2 POC ABG pO2 315 H Potassium Chloride Carbon Dioxide BUN Creatinine Glucose POC Glucose Lactic Acid 2.80 H* Calcium Total Bilirubin AST ALT Lactate Dehydrogenase Total Creatine Kinase CK-MB (CK-2) Troponin T Total Protein Albumin Cholesterol LDL Cholesterol Direct HDL Cholesterol Urine WBC (Auto) 24.0 H Crossmatch 03/10/19 03/11/19 03/11/19 23:29 00:50 05:01 WBC RBC 2.29 L Hgb 7.3 L Hct 22.2 L MCV 97 H MCHC RDW 18.2 H Plt Count 40 L [place] # Seg Neuts % (Manual) 8.0 L Lymphocytes % (Manual) 67.0 H Monocytes % (Manual) 24.0 H Nucleated RBC % 5.0 H Seg Neutrophils # Seg Neutrophils # Man 0.4 L Lymphocytes # (Manual) Monocytes # (Manual) 1.2 H INR POC ABG pH POC ABG pCO2 POC ABG pO2 Potassium Chloride Carbon Dioxide BUN Creatinine Glucose POC Glucose 237 H Lactic Acid Calcium Total Bilirubin AST ALT Lactate Dehydrogenase Total Creatine Kinase 513 H CK-MB (CK-2) Troponin T 0.075 H Total Protein Albumin Cholesterol < 4 L LDL Cholesterol Direct 4 L HDL Cholesterol < 3 L Urine WBC (Auto) Crossmatch 03/11/19 03/11/19 03/11/19 05:01 06:06 06:07 WBC RBC Hgb Hct MCV MCHC RDW Plt Count [place] # Seg Neuts % (Manual) Lymphocytes % (Manual) Monocytes % (Manual) Nucleated RBC % Seg Neutrophils # Seg Neutrophils # Man Lymphocytes # (Manual) Monocytes # (Manual) INR POC ABG pH POC ABG pCO2 32.8 L POC ABG pO2 Potassium 5.3 H Chloride Carbon Dioxide 19 L BUN 49 H Creatinine 3.7 H Glucose 203 H POC Glucose Lactic Acid Calcium 7.1 L Total Bilirubin AST ALT Lactate Dehydrogenase Total Creatine Kinase 1156 H CK-MB (CK-2) 4.6 H Troponin T 0.077 H Total Protein Albumin Cholesterol LDL Cholesterol Direct HDL Cholesterol Urine WBC (Auto) Crossmatch 03/11/19 03/11/19 03/11/19 06:35 13:07 18:36 WBC RBC Hgb Hct MCV MCHC RDW Plt Count [place] # Seg Neuts % (Manual) Lymphocytes % (Manual) Monocytes % (Manual) Nucleated RBC % Seg Neutrophils # Seg Neutrophils # Man Lymphocytes # (Manual) Monocytes # (Manual) INR POC ABG pH POC ABG pCO2 POC ABG pO2 Potassium Chloride Carbon Dioxide BUN Creatinine Glucose POC Glucose 209 H 185 H 126 H Lactic Acid Calcium Total Bilirubin AST ALT Lactate Dehydrogenase Total Creatine Kinase CK-MB (CK-2) Troponin T Total Protein Albumin Cholesterol LDL Cholesterol Direct HDL Cholesterol Urine WBC (Auto) Crossmatch 03/11/19 03/12/19 03/12/19 23:45 04:25 05:06 WBC RBC 2.24 L Hgb 7.2 L Hct 21.9 L MCV 98 H MCHC RDW 18.3 H Plt Count 38 L [place] # Seg Neuts % (Manual) 4.0 L Lymphocytes % (Manual) Monocytes % (Manual) 69.0 H Nucleated RBC % Seg Neutrophils # Seg Neutrophils # Man 0.3 L Lymphocytes # (Manual) Monocytes # (Manual) 4.9 H INR POC ABG pH 7.320 L POC ABG pCO2 POC ABG pO2 Potassium Chloride Carbon Dioxide BUN Creatinine Glucose POC Glucose 137 H Lactic Acid Calcium Total Bilirubin AST ALT Lactate Dehydrogenase Total Creatine Kinase CK-MB (CK-2) Troponin T Total Protein Albumin Cholesterol LDL Cholesterol Direct HDL Cholesterol Urine WBC (Auto) Crossmatch 03/12/19 03/12/19 03/12/19 05:06 05:57 07:19 WBC RBC Hgb Hct MCV MCHC RDW Plt Count [place] # Seg Neuts % (Manual) Lymphocytes % (Manual) Monocytes % (Manual) Nucleated RBC % Seg Neutrophils # Seg Neutrophils # Man Lymphocytes # (Manual) Monocytes # (Manual) INR POC ABG pH POC ABG pCO2 POC ABG pO2 Potassium 6.6 H* D 6.6 H* Chloride Carbon Dioxide 17 L BUN 66 H Creatinine 5.6 H D Glucose 149 H POC Glucose 165 H Lactic Acid Calcium 6.5 L Total Bilirubin 1.90 H AST 782 H ALT 382 H Lactate Dehydrogenase Total Creatine Kinase CK-MB (CK-2) Troponin T Total Protein 5.7 L Albumin 2.7 L Cholesterol LDL Cholesterol Direct HDL Cholesterol Urine WBC (Auto) Crossmatch 03/12/19 03/12/19 03/12/19 15:24 18:55 23:45 WBC RBC Hgb Hct MCV MCHC RDW Plt Count [place] # Seg Neuts % (Manual) Lymphocytes % (Manual) Monocytes % (Manual) Nucleated RBC % Seg Neutrophils # Seg Neutrophils # Man Lymphocytes # (Manual) Monocytes # (Manual) INR POC ABG pH POC ABG pCO2 POC ABG pO2 Potassium Chloride Carbon Dioxide BUN Creatinine Glucose POC Glucose 167 H 212 H 197 H Lactic Acid Calcium Total Bilirubin AST ALT Lactate Dehydrogenase Total Creatine Kinase CK-MB (CK-2) Troponin T Total Protein Albumin Cholesterol LDL Cholesterol Direct HDL Cholesterol Urine WBC (Auto) Crossmatch 03/13/19 03/13/19 03/13/19 05:37 09:11 09:11 WBC RBC 1.99 L Hgb 6.4 L Hct 18.7 L* MCV MCHC RDW 18.5 H Plt Count 36 L [place] # Seg Neuts % (Manual) Lymphocytes % (Manual) Monocytes % (Manual) Nucleated RBC % Seg Neutrophils # Seg Neutrophils # Man Lymphocytes # (Manual) Monocytes # (Manual) INR POC ABG pH POC ABG pCO2 POC ABG pO2 Potassium Chloride Carbon Dioxide BUN 52 H Creatinine 5.5 H Glucose 235 H POC Glucose 250 H Lactic Acid Calcium 6.2 L Total Bilirubin AST ALT Lactate Dehydrogenase Total Creatine Kinase CK-MB (CK-2) Troponin T Total Protein Albumin Cholesterol LDL Cholesterol Direct HDL Cholesterol Urine WBC (Auto) Crossmatch 03/13/19 03/13/19 03/13/19 11:06 12:38 18:11 WBC RBC 2.07 L Hgb 6.6 L Hct 19.6 L* MCV 95 H MCHC RDW 18.5 H Plt Count 33 L [place] # Seg Neuts % (Manual) Lymphocytes % (Manual) Monocytes % (Manual) Nucleated RBC % Seg Neutrophils # Seg Neutrophils # Man Lymphocytes # (Manual) Monocytes # (Manual) INR POC ABG pH POC ABG pCO2 POC ABG pO2 Potassium Chloride Carbon Dioxide BUN Creatinine Glucose POC Glucose 268 H 255 H Lactic Acid Calcium Total Bilirubin AST ALT Lactate Dehydrogenase Total Creatine Kinase CK-MB (CK-2) Troponin T Total Protein Albumin Cholesterol LDL Cholesterol Direct HDL Cholesterol Urine WBC (Auto) Crossmatch 03/13/19 03/13/19 03/13/19 19:12 20:58 23:49 WBC RBC Hgb Hct MCV MCHC RDW Plt Count [place] # Seg Neuts % (Manual) Lymphocytes % (Manual) Monocytes % (Manual) Nucleated RBC % Seg Neutrophils # Seg Neutrophils # Man Lymphocytes # (Manual) Monocytes # (Manual) INR POC ABG pH 7.466 H POC ABG pCO2 POC ABG pO2 Potassium Chloride Carbon Dioxide BUN Creatinine Glucose POC Glucose 289 H Lactic Acid Calcium Total Bilirubin AST ALT Lactate Dehydrogenase Total Creatine Kinase CK-MB (CK-2) Troponin T Total Protein Albumin Cholesterol LDL Cholesterol Direct HDL Cholesterol Urine WBC (Auto) Crossmatch See Detail 03/14/19 03/14/19 03/14/19 05:51 11:39 13:43 WBC 14.0 H RBC 2.78 L Hgb 8.9 L Hct 26.0 L D MCV MCHC RDW 17.9 H Plt Count 42 L [place] # Seg Neuts % (Manual) 2.0 L Lymphocytes % (Manual) 84.0 H Monocytes % (Manual) 13.0 H Nucleated RBC % Seg Neutrophils # Seg Neutrophils # Man 0.3 L Lymphocytes # (Manual) 11.8 H Monocytes # (Manual) 1.8 H INR POC ABG pH POC ABG pCO2 POC ABG pO2 Potassium Chloride Carbon Dioxide BUN Creatinine Glucose POC Glucose 305 H 283 H Lactic Acid Calcium Total Bilirubin AST ALT Lactate Dehydrogenase Total Creatine Kinase CK-MB (CK-2) Troponin T Total Protein Albumin Cholesterol LDL Cholesterol Direct HDL Cholesterol Urine WBC (Auto) Crossmatch 03/14/19 03/15/19 03/15/19 18:12 00:43 04:24 WBC RBC Hgb Hct MCV MCHC RDW Plt Count [place] # Seg Neuts % (Manual) Lymphocytes % (Manual) Monocytes % (Manual) Nucleated RBC % Seg Neutrophils # Seg Neutrophils # Man Lymphocytes # (Manual) Monocytes # (Manual) INR POC ABG pH 7.497 H POC ABG pCO2 34.0 L POC ABG pO2 Potassium Chloride Carbon Dioxide BUN Creatinine Glucose POC Glucose 313 H 236 H Lactic Acid Calcium Total Bilirubin AST ALT Lactate Dehydrogenase Total Creatine Kinase CK-MB (CK-2) Troponin T Total Protein Albumin Cholesterol LDL Cholesterol Direct HDL Cholesterol Urine WBC (Auto) Crossmatch 03/15/19 03/15/19 03/15/19 07:15 07:15 07:24 WBC 16.1 H RBC 2.50 L Hgb 8.1 L Hct 23.4 L MCV MCHC 35 H RDW 18.5 H Plt Count 42 L [place] # Seg Neuts % (Manual) 2.0 L Lymphocytes % (Manual) 41.0 H Monocytes % (Manual) 11.0 H Nucleated RBC % Seg Neutrophils # Seg Neutrophils # Man 0.3 L Lymphocytes # (Manual) 6.6 H Monocytes # (Manual) 1.8 H INR POC ABG pH POC ABG pCO2 POC ABG pO2 Potassium Chloride 96.0 L Carbon Dioxide BUN 47 H Creatinine 5.0 H Glucose 287 H POC Glucose 285 H Lactic Acid Calcium 7.2 L D Total Bilirubin AST 522 H ALT 474 H Lactate Dehydrogenase Total Creatine Kinase CK-MB (CK-2) Troponin T Total Protein 5.7 L Albumin 2.4 L Cholesterol LDL Cholesterol Direct HDL Cholesterol Urine WBC (Auto) Crossmatch 03/15/19 03/15/19 03/15/19 11:18 17:12 23:19 WBC RBC Hgb Hct MCV MCHC RDW Plt Count [place] # Seg Neuts % (Manual) Lymphocytes % (Manual) Monocytes % (Manual) Nucleated RBC % Seg Neutrophils # Seg Neutrophils # Man Lymphocytes # (Manual) Monocytes # (Manual) INR POC ABG pH POC ABG pCO2 POC ABG pO2 Potassium Chloride Carbon Dioxide BUN Creatinine Glucose POC Glucose 287 H 221 H 297 H Lactic Acid Calcium Total Bilirubin AST ALT Lactate Dehydrogenase Total Creatine Kinase CK-MB (CK-2) Troponin T Total Protein Albumin Cholesterol LDL Cholesterol Direct HDL Cholesterol Urine WBC (Auto) Crossmatch 03/16/19 03/16/19 03/16/19 03:49 05:26 11:26 WBC RBC Hgb Hct MCV MCHC RDW Plt Count [place] # Seg Neuts % (Manual) Lymphocytes % (Manual) Monocytes % (Manual) Nucleated RBC % Seg Neutrophils # Seg Neutrophils # Man Lymphocytes # (Manual) Monocytes # (Manual) INR POC ABG pH 7.487 H POC ABG pCO2 34.3 L POC ABG pO2 254 H Potassium Chloride Carbon Dioxide BUN Creatinine Glucose POC Glucose 271 H 298 H Lactic Acid Calcium Total Bilirubin AST ALT Lactate Dehydrogenase Total Creatine Kinase CK-MB (CK-2) Troponin T Total Protein Albumin Cholesterol LDL Cholesterol Direct HDL Cholesterol Urine WBC (Auto) Crossmatch 03/16/19 03/16/19 03/17/19 17:55 23:47 04:08 WBC RBC Hgb Hct MCV MCHC RDW Plt Count [place] # Seg Neuts % (Manual) Lymphocytes % (Manual) Monocytes % (Manual) Nucleated RBC % Seg Neutrophils # Seg Neutrophils # Man Lymphocytes # (Manual) Monocytes # (Manual) INR POC ABG pH 7.491 H POC ABG pCO2 31.1 L POC ABG pO2 70 L Potassium Chloride Carbon Dioxide BUN Creatinine Glucose POC Glucose 304 H 260 H Lactic Acid Calcium Total Bilirubin AST ALT Lactate Dehydrogenase Total Creatine Kinase CK-MB (CK-2) Troponin T Total Protein Albumin Cholesterol LDL Cholesterol Direct HDL Cholesterol Urine WBC (Auto) Crossmatch 03/17/19 03/17/19 03/17/19 05:30 05:30 05:55 WBC 18.8 H RBC 2.13 L Hgb 6.9 L Hct 20.0 L MCV MCHC 35 H RDW 18.4 H Plt Count 34 L [place] # Seg Neuts % (Manual) Lymphocytes % (Manual) Monocytes % (Manual) Nucleated RBC % Seg Neutrophils # Seg Neutrophils # Man Lymphocytes # (Manual) Monocytes # (Manual) INR POC ABG pH POC ABG pCO2 POC ABG pO2 Potassium 3.5 L Chloride 96.6 L Carbon Dioxide BUN 86 H Creatinine 7.4 H Glucose 222 H POC Glucose 218 H Lactic Acid Calcium 6.9 L Total Bilirubin AST ALT Lactate Dehydrogenase Total Creatine Kinase CK-MB (CK-2) Troponin T Total Protein Albumin Cholesterol LDL Cholesterol Direct HDL Cholesterol Urine WBC (Auto) Crossmatch 03/17/19 03/17/19 03/17/19 12:09 13:06 17:37 WBC RBC Hgb Hct MCV MCHC RDW Plt Count [place] # Seg Neuts % (Manual) Lymphocytes % (Manual) Monocytes % (Manual) Nucleated RBC % Seg Neutrophils # Seg Neutrophils # Man Lymphocytes # (Manual) Monocytes # (Manual) INR POC ABG pH POC ABG pCO2 POC ABG pO2 Potassium Chloride Carbon Dioxide BUN Creatinine Glucose POC Glucose 246 H 253 H Lactic Acid Calcium Total Bilirubin AST ALT Lactate Dehydrogenase Total Creatine Kinase CK-MB (CK-2) Troponin T Total Protein Albumin Cholesterol LDL Cholesterol Direct HDL Cholesterol Urine WBC (Auto) Crossmatch See Detail 03/18/19 03/18/19 03/18/19 00:06 04:49 05:43 WBC RBC Hgb Hct MCV MCHC RDW Plt Count [place] # Seg Neuts % (Manual) Lymphocytes % (Manual) Monocytes % (Manual) Nucleated RBC % Seg Neutrophils # Seg Neutrophils # Man Lymphocytes # (Manual) Monocytes # (Manual) INR POC ABG pH 7.569 H POC ABG pCO2 30.6 L POC ABG pO2 Potassium Chloride Carbon Dioxide BUN Creatinine Glucose POC Glucose 233 H 310 H Lactic Acid Calcium Total Bilirubin AST ALT Lactate Dehydrogenase Total Creatine Kinase CK-MB (CK-2) Troponin T Total Protein Albumin Cholesterol LDL Cholesterol Direct HDL Cholesterol Urine WBC (Auto) Crossmatch 03/18/19 03/18/19 03/18/19 05:45 12:09 17:43 WBC 28.3 H RBC 2.50 L Hgb 8.1 L Hct 23.4 L MCV MCHC 35 H RDW 17.7 H Plt Count 36 L [place] # Seg Neuts % (Manual) 0 L Lymphocytes % (Manual) 4.0 L Monocytes % (Manual) Nucleated RBC % 1.0 H Seg Neutrophils # Seg Neutrophils # Man 0.0 L Lymphocytes # (Manual) 1.1 L Monocytes # (Manual) 1.4 H INR POC ABG pH POC ABG pCO2 POC ABG pO2 Potassium Chloride Carbon Dioxide BUN Creatinine Glucose POC Glucose 258 H 252 H Lactic Acid Calcium Total Bilirubin AST ALT Lactate Dehydrogenase Total Creatine Kinase CK-MB (CK-2) Troponin T Total Protein Albumin Cholesterol LDL Cholesterol Direct HDL Cholesterol Urine WBC (Auto) Crossmatch 03/19/19 03/19/19 03/19/19 00:04 06:15 06:15 WBC RBC Hgb Hct MCV MCHC RDW Plt Count [place] # Seg Neuts % (Manual) Lymphocytes % (Manual) Monocytes % (Manual) Nucleated RBC % Seg Neutrophils # Seg Neutrophils # Man Lymphocytes # (Manual) Monocytes # (Manual) INR POC ABG pH POC ABG pCO2 POC ABG pO2 Potassium Chloride 96.7 L Carbon Dioxide BUN 60 H Creatinine 5.4 H Glucose 249 H POC Glucose 215 H Lactic Acid Calcium 7.6 L Total Bilirubin AST ALT Lactate Dehydrogenase 853 H Total Creatine Kinase CK-MB (CK-2) Troponin T Total Protein Albumin Cholesterol LDL Cholesterol Direct HDL Cholesterol Urine WBC (Auto) Crossmatch 03/19/19 03/19/19 03/19/19 06:17 12:51 18:18 WBC RBC Hgb Hct MCV MCHC RDW Plt Count [place] # Seg Neuts % (Manual) Lymphocytes % (Manual) Monocytes % (Manual) Nucleated RBC % Seg Neutrophils # Seg Neutrophils # Man Lymphocytes # (Manual) Monocytes # (Manual) INR POC ABG pH POC ABG pCO2 POC ABG pO2 Potassium Chloride Carbon Dioxide BUN Creatinine Glucose POC Glucose 301 H 278 H 252 H Lactic Acid Calcium Total Bilirubin AST ALT Lactate Dehydrogenase Total Creatine Kinase CK-MB (CK-2) Troponin T Total Protein Albumin Cholesterol LDL Cholesterol Direct HDL Cholesterol Urine WBC (Auto) Crossmatch 03/19/19 03/20/19 03/20/19 23:58 04:45 04:45 WBC 39.9 H RBC 2.51 L Hgb 8.0 L Hct 24.1 L MCV 96 H MCHC RDW 18.2 H Plt Count 51 L [place] # Seg Neuts % (Manual) Lymphocytes % (Manual) Monocytes % (Manual) Nucleated RBC % Seg Neutrophils # Seg Neutrophils # Man Lymphocytes # (Manual) Monocytes # (Manual) INR POC ABG pH POC ABG pCO2 POC ABG pO2 Potassium Chloride Carbon Dioxide BUN 51 H Creatinine 5.1 H Glucose 221 H POC Glucose 233 H Lactic Acid Calcium 7.8 L Total Bilirubin AST ALT Lactate Dehydrogenase Total Creatine Kinase CK-MB (CK-2) Troponin T Total Protein Albumin Cholesterol LDL Cholesterol Direct HDL Cholesterol Urine WBC (Auto) Crossmatch 03/20/19 03/20/19 03/20/19 05:52 11:43 17:48 WBC RBC Hgb Hct MCV MCHC RDW Plt Count [place] # Seg Neuts % (Manual) Lymphocytes % (Manual) Monocytes % (Manual) Nucleated RBC % Seg Neutrophils # Seg Neutrophils # Man Lymphocytes # (Manual) Monocytes # (Manual) INR POC ABG pH POC ABG pCO2 POC ABG pO2 Potassium Chloride Carbon Dioxide BUN Creatinine Glucose POC Glucose 256 H 316 H 286 H Lactic Acid Calcium Total Bilirubin AST ALT Lactate Dehydrogenase Total Creatine Kinase CK-MB (CK-2) Troponin T Total Protein Albumin Cholesterol LDL Cholesterol Direct HDL Cholesterol Urine WBC (Auto) Crossmatch 03/21/19 03/21/19 03/21/19 00:17 06:21 08:00 WBC RBC Hgb Hct MCV MCHC RDW Plt Count [place] # Seg Neuts % (Manual) Lymphocytes % (Manual) Monocytes % (Manual) Nucleated RBC % Seg Neutrophils # Seg Neutrophils # Man Lymphocytes # (Manual) Monocytes # (Manual) INR POC ABG pH POC ABG pCO2 POC ABG pO2 Potassium Chloride Carbon Dioxide BUN Creatinine Glucose POC Glucose 212 H 256 H 285 H Lactic Acid Calcium Total Bilirubin AST ALT Lactate Dehydrogenase Total Creatine Kinase CK-MB (CK-2) Troponin T Total Protein Albumin Cholesterol LDL Cholesterol Direct HDL Cholesterol Urine WBC (Auto) Crossmatch 03/21/19 11:15 WBC RBC Hgb Hct MCV MCHC RDW Plt Count [place] # Seg Neuts % (Manual) Lymphocytes % (Manual) Monocytes % (Manual) Nucleated RBC % Seg Neutrophils # Seg Neutrophils # Man Lymphocytes # (Manual) Monocytes # (Manual) INR POC ABG pH POC ABG pCO2 POC ABG pO2 Potassium Chloride Carbon Dioxide BUN Creatinine Glucose POC Glucose 255 H Lactic Acid Calcium Total Bilirubin AST ALT Lactate Dehydrogenase Total Creatine Kinase CK-MB (CK-2) Troponin T Total Protein Albumin Cholesterol LDL Cholesterol Direct HDL Cholesterol Urine WBC (Auto) Crossmatch Allied health notes reviewed: nursing
--- NOTE | 2019-03-21 12:28 | Progress Note ---
Assessment and Plan Assessment and plan: Patient is a 54 yo man with a history of hypertension, DM type 2, CKD 3 and CAD s/p shents who presented to [facility] ED on 03/10/19 with SOB and cough. Dental pain with ?abscess preceded this illness. He had a PEA cardiac arrest in ED, was successfully resucitated, intubated, stated on vasopressor and admitted to ICU. He had whole body jerking in ED, ?seizure activity. * Initial CT chest wo contrast IMPRESSION: Small pericardial effusion ET in satisfactory position. Atelectasis posterior aspects of both lungs. * Initial CT abd/pelvis wo contrast IMPRESSION: Possible mild right colonic wall thickening and trace free fluid in the right paracolic gutter and pelvis may be infectious, inflammatory or ischemic in etiology. No pneumoperitoneum or focal fluid collection to suggest abscess. Mild pericholecystic edema. No calcified gallstones. If there is concern for cholecystitis, consider follow- up ultrasound and/or nuclear medicine hepatobiliary scan. Small pericardial effusion. Coronary and peripheral arterial disease. * CT head wo contrast IMPRESSION: Nonspecific findings with some indistinctness of the basal ganglia and dean-white matter differentiation which may be seen with hypoxic ischemic brain injury * TTE on 03/11/19: Technically difficult due to body habitus, mild concentric LVH, estimated EF 40-45%, abnormal LV diastolic filling c/w impaired relaxation...no pericardial effusion Cardiopulmonary Arrest: supportive care Acute encephalopathy, poa with jerking activity following NGT placement thought to be seizures ?seizure, ?diffused hypoxic ischemic brain injury: Consulted Neurology, input noted Acute Hypoxic Respiratory Failure, On mechanical ventilation >96hrs. Pulmonary following Severe Sepsis with Shock: off Vasopressors. ?Dental abscess vs Group A strep. ID following, continues on abx, No evidence of Endocarditis on TTE Multi system Organ failure, poa Acute combined heart failure, poa: Cardiology is following DM type 2 with hyperglycemia-POA: Lantus and adjust sliding scale Insulin severe Anemia- Transfuse Thrombocytopenia ?DIC secondary to underlying condition: Hold Antiplatelets Pericardial effusion: Cardiology following ARF/CKD 3 due to ATN, poa with suspected progression to ESRD: on HD, Nephrology is following Morbid obesity, bmi 55.9: Counselling when more awake Severe Protein calorie malnutrition, poa: Drapery Cutter Machine consult Acute Metabolic Encephalopathy: Neurology consulted ?ischemic brain injury Diarrhea-C,DIFF RULED OUT- fecal tube in place SHOCK LIVER-HEPATIC FAILURE-improve bp and follow CAD by hx-POA Sacral Pressure ulcer, poa- Wound care consulted, input noted poor prognosis d/w daughter Macrina and sister Nano at bedside on 03/20/19 d/w Dr. Cleaning on 03/21/19 peripheral flow cytometry suggestive of AML via verbal report from Dr. Hatch, Dr. Cleaning will discuss with daughter CCT 33 minutes History Interval history: Patient was seen and examined. Follow-up on current diagnosis Respiratory failure. No overnight events reported to me. Imaging, nursing note, chart, labs and old chart reviewed. It appears he has emesis overnight. Hospitalist Physical - Physical exam Narrative exam: Gen: critically ill appearing, bmi 55.9 HEENT: NCAT, EOMI, PERRL, OP Clear Neck: supple, no adenopathy, no thyromegaly, no JVD CVS/Heart: RRR, normal S1S2, pulses present bilaterally Chest/Lungs: diminished bs bilateral Symmetrical chest expansion, ok air entry bilaterally GI/Abdomen: soft, NTND, good bowel sounds, no guarding or rebound /Bladder: no suprapubic tenderness, no CVA or paraspinal tenderness Extermity/Skin: edema MSK: sedated Neuro: sedated Psych: sedated - Constitutional Vitals: Temp Pulse Resp BP Pulse Ox 98.7 F 95 H 36 H 147/66 99 03/21/19 10:15 03/21/19 11:40 03/21/19 11:30 03/21/19 11:40 03/21/19 11:40 General appearance: Present: obese Results - Labs CBC & Chem 7: 03/20/19 04:45 03/20/19 04:45 Labs: Laboratory Last Values WBC 39.9 K/mm3 (4.5-11.0) H 03/20/19 04:45 RBC 2.51 M/mm3 (3.65-5.03) L 03/20/19 04:45 Hgb 8.0 gm/dl (11.8-15.2) L 03/20/19 04:45 Hct 24.1 % (35.5-45.6) L 03/20/19 04:45 MCV 96 fl (84-94) H 03/20/19 04:45 MCH 32 pg (28-32) 03/20/19 04:45 MCHC 33 % (32-34) 03/20/19 04:45 RDW 18.2 % (13.2-15.2) H 03/20/19 04:45 Plt Count 51 K/mm3 (140-440) L 03/20/19 04:45 [place] % (Auto) Vulcanized Fiber Unit Operator 03/18/19 05:45 Eos % (Auto) 0.4 % (0.0-4.3) 03/10/19 17:57 [place] # 0.9 K/mm3 (0.0-0.8) H 03/10/19 17:57 Eos # 0.0 K/mm3 (0.0-0.4) 03/10/19 17:57 Baso # 0.0 K/mm3 (0.0-0.1) 03/10/19 17:57 Add Manual Diff Complete 03/18/19 05:45 Total Counted 100 03/18/19 05:45 Seg Neutrophils % Vulcanized Fiber Unit Operator 03/18/19 05:45 Seg Neuts % (Manual) 0 % (40.0-70.0) L 03/18/19 05:45 0 % 03/18/19 05:45 4.0 % (13.4-35.0) L 03/18/19 05:45 Reactive Lymphs % (Man) 0 % 03/18/19 05:45 5.0 % (0.0-7.3) 03/18/19 05:45 0 % (0.0-4.3) 03/18/19 05:45 0 % (0.0-1.8) 03/18/19 05:45 1.0 % 03/18/19 05:45 0 % 03/18/19 05:45 0 % 03/18/19 05:45 90.0 % 03/18/19 05:45 Nucleated RBC % 1.0 % (0.0-0.9) H 03/18/19 05:45 Seg Neutrophils # 0.1 K/mm3 (1.8-7.7) L 03/10/19 17:57 Seg Neutrophils # Man 0.0 K/mm3 (1.8-7.7) L 03/18/19 05:45 Band Neutrophils # 0.0 K/mm3 03/18/19 05:45 1.1 K/mm3 (1.2-5.4) L 03/18/19 05:45 Abs React Lymphs (Man) 0.0 K/mm3 03/18/19 05:45 1.4 K/mm3 (0.0-0.8) H 03/18/19 05:45 0.0 K/mm3 (0.0-0.4) 03/18/19 05:45 0.0 K/mm3 (0.0-0.1) 03/18/19 05:45 0.3 K/mm3 03/18/19 05:45 0.0 K/mm3 03/18/19 05:45 0.0 K/mm3 03/18/19 05:45 Blast Cells # 0.0 K/mm3 03/18/19 05:45 Pathologist Review 03/10/19 17:57 WBC Morphology Not Reportable 03/18/19 05:45 WBC Morphology TNR 03/18/19 05:45 Hypersegmented Neuts Not Reportable 03/18/19 05:45 Hyposegmented Neuts Not Reportable 03/18/19 05:45 Hypogranular Neuts Not Reportable 03/18/19 05:45 Not Reportable 03/18/19 05:45 Not Reportable 03/18/19 05:45 Not Reportable 03/18/19 05:45 Not Reportable 03/18/19 05:45 Not Reportable 03/18/19 05:45 Not Reportable 03/18/19 05:45 Consistent w auto 03/18/19 05:45 Not Reportable 03/18/19 05:45 Plt Clumps, EDTA Not Reportable 03/18/19 05:45 Not Reportable 03/18/19 05:45 Not Reportable 03/18/19 05:45 Not Reportable 03/18/19 05:45 Plt Morphology Comment Not Reportable 03/18/19 05:45 RBC Morphology Not Reportable 03/18/19 05:45 Dimorphic RBCs Not Reportable 03/18/19 05:45 Few 03/18/19 05:45 Not Reportable 03/18/19 05:45 Not Reportable 03/18/19 05:45 1+ 03/18/19 05:45 Few 03/18/19 05:45 Not Reportable 03/18/19 05:45 Not Reportable 03/18/19 05:45 Not Reportable 03/18/19 05:45 Not Reportable 03/18/19 05:45 Not Reportable 03/18/19 05:45 Few 03/18/19 05:45 1+ 03/18/19 05:45 Not Reportable 03/18/19 05:45 Not Reportable 03/18/19 05:45 Not Reportable 03/18/19 05:45 Not Reportable 03/18/19 05:45 Not Reportable 03/18/19 05:45 Not Reportable 03/18/19 05:45 Not Reportable 03/18/19 05:45 Acanthocytes (Spur) Few 03/18/19 05:45 Rouleaux Not Reportable 03/18/19 05:45 Not Reportable 03/18/19 05:45 Not Reportable 03/18/19 05:45 Not Reportable 03/18/19 05:45 Not Reportable 03/18/19 05:45 Hem Pathologist Commnt Sent to pathology 03/18/19 05:45 PT 14.4 Sec. (12.2-14.9) 03/10/19 17:57 INR 1.15 (0.87-1.13) H 03/10/19 17:57 APTT 28.8 Sec. (24.2-36.6) 03/10/19 17:57 POC ABG pH 7.398 (7.35-7.45) 03/19/19 03:48 POC ABG pCO2 43.5 (35-45) 03/19/19 03:48 POC ABG pO2 80 (80-105) 03/19/19 03:48 POC ABG HCO3 26.8 (22-26 mml/L) 03/19/19 03:48 POC ABG Total CO2 28 (23-27mmol/L) 03/19/19 03:48 POC ABG O2 Sat 96 03/19/19 03:48 POC ABG Base Excess 2 ((-2) - (+3)mmol/L) 03/19/19 03:48 VBG pH 7.381 (7.320-7.420) 03/10/19 17:57 45 % 03/19/19 03:48 Sodium 140 mmol/L (137-145) 03/20/19 04:45 Potassium 4.7 mmol/L (3.6-5.0) 03/20/19 04:45 Chloride 98.3 mmol/L (98-107) 03/20/19 04:45 Carbon Dioxide 26 mmol/L (22-30) 03/20/19 04:45 20 mmol/L 03/20/19 04:45 BUN 51 mg/dL (9-20) H 03/20/19 04:45 5.1 mg/dL (0.8-1.5) H 03/20/19 04:45 Estimated GFR 12 ml/min 03/20/19 04:45 10 % 03/20/19 04:45 Glucose 221 mg/dL (75-100) H 03/20/19 04:45 POC Glucose 255 (70-105) H 03/21/19 11:15 Lactic Acid 1.70 mmol/L (0.7-2.0) 03/10/19 23:17 4.0 mg/dL (3.5-7.6) 03/19/19 06:15 Calcium 7.8 mg/dL (8.4-10.2) L 03/20/19 04:45 Magnesium 1.80 mg/dL (1.7-2.3) 03/17/19 05:30 0.50 mg/dL (0.1-1.2) 03/15/19 07:15 AST 522 units/L (5-40) H 03/15/19 07:15 ALT 474 units/L (7-56) H 03/15/19 07:15 129 units/L (35-129) 03/15/19 07:15 853 units/L (91-180) H 03/19/19 06:15 1156 units/L (55-170) H 03/11/19 06:07 CK-MB (CK-2) 4.6 ng/mL (0.0-4.0) H 03/11/19 06:07 CK-MB (CK-2) Rel Index 0.3 (0-4) 03/11/19 06:07 0.077 ng/mL (0.00-0.029) H 03/11/19 06:07 5.7 g/dL (6.3-8.2) L 03/15/19 07:15 2.4 g/dL (3.9-5) L 03/15/19 07:15 0.7 % 03/15/19 07:15 Triglycerides 91 mg/dL (2-149) 03/11/19 00:50 Cholesterol < 4 mg/dL (50-199) L 03/11/19 00:50 4 mg/dL (50-130) L 03/11/19 00:50 < 3 mg/dL (40-59) L 03/11/19 00:50 1.00 % 03/11/19 00:50 [place] (Yellow) 03/10/19 23:06 Cloudy (Clear) 03/10/19 23:06 5.0 (5.0-7.0) 03/10/19 23:06 Ur Specific [place] 1.016 (1.003-1.030) 03/10/19 23:06 >500 mg/dL (Negative) 03/10/19 23:06 Neg mg/dL (Negative) 03/10/19 23:06 Neg mg/dL (Negative) 03/10/19 23:06 Mod (Negative) 03/10/19 23:06 Neg (Negative) 03/10/19 23:06 Neg (Negative) 03/10/19 23:06 2.0 mg/dL (<2.0) 03/10/19 23:06 Ur Leukocyte Esterase Neg (Negative) 03/10/19 23:06 24.0 /HPF (0.0-6.0) H 03/10/19 23:06 24.0 /HPF (0.0-6.0) 03/10/19 23:06 U Epithel Cells (Auto) 4.0 /HPF (0-13.0) 03/10/19 23:06 Amorphous Crystals Few 03/10/19 23:06 Random Vancomycin 14 ug/mL (0-40.0) 03/12/19 05:06 Proteinase 3 (PR3) Ab <1.0 AI (<1.0) 03/13/19 09:11 Myeloperoxidase Ab <1.0 AI (<1.0) 03/13/19 09:11 86 mg/dL (82-185) 03/13/19 09:12 37 mg/dL (15-53) 03/13/19 09:12 C. difficile Tox (PCR) Negative (Negative) 03/11/19 Unknown Hepatitis A IgM Ab Non-reactive (NonReactive) 03/13/19 01:31 Hep Bs Antigen Non-reactive (Negative) 03/13/19 01:31 Hep B Core IgM Ab Non-reactive (NonReactive) 03/13/19 01:31 Non-reactive (NonReactive) 03/13/19 01:31 Influenza A (Rapid) Negative (Negative) 03/10/19 18:00 Influenza B (Rapid) Negative (Negative) 03/10/19 18:00 Blood Type A POSITIVE 03/17/19 13:06 Antibody Screen Negative 03/17/19 13:06 Crossmatch See Detail 03/17/19 13:06 Active Medications - Current Medications Current Medications: Generic Name Dose Route Start Last Admin Trade Name Freq PRN Reason Stop Dose Admin Acetaminophen 650 mg 03/11/19 00:40 03/21/19 04:17 Tylenol PO 650 mg Q4H PRN Administration Pain MILD(1-3)/Fever >100.5/[place] Acetaminophen 650 mg 03/11/19 00:40 03/12/19 04:53 Tylenol MT 650 mg Q4H PRN Administration Pain MILD(1-3)/Fever >100.5/[place] Albumin Human 12.5 gm 03/13/19 09:29 Alburx 25% (Albumin) IV DUKE PRN Hypotension Albuterol 2.5 mg 03/17/19 16:00 03/21/19 07:53 Proventil IH 2.5 mg Q8HRT ROXANNE Administration Lipase/Protease/Amylase 1 each 03/15/19 13:21 Pancreaze 10,500 Unit FEEDTUBE PRN PRN For Clogged Feeding Tube Dextrose 50 ml 03/11/19 00:44 D50w (25gm) Syringe IV PRN PRN Hypoglycemia Fentanyl 50 mcg 03/11/19 07:50 03/18/19 11:44 Sublimaze IV 50 mcg Q10MIN PRN Administration ANALGESIA Hydrophilic Ointment 1 applic 03/10/19 19:50 Vaseline Lip Therapy TP Q2HR PRN Dry Lips Propofol 1,000 mg in 100 mls @ 4.082 mls/hr 03/10/19 20:00 03/11/19 14:30 Diprivan 10 Mg/Ml IV Infused TITR ROXANNE Titration Protocol 5 MCG/KG/MIN Norepinephrine 4 mg in 250 mls @ 7.5 mls/hr 03/10/19 21:00 03/21/19 10:09 Levophed Drip 4 Mg/Ns 250 Ml IV 2 mcg/min TITR ROXANNE 7.5 mls/hr Titration Protocol 2 MCG/MIN Fentanyl Citrate 2,000 mcg in 100 mls @ 6.804 mls/hr 03/11/19 08:00 03/20/19 09:05 Fentanyl Drip Premix IV 0 mcg/kg/hr TITR ROXANNE 0 mls/hr Titration Protocol 1 MCG/KG/HR Ceftriaxone Sodium 2 gm in 100 mls @ 200 mls/hr 03/11/19 13:00 03/20/19 22:17 Rocephin/Ns 2 Gm/100 Ml IV 200 mls/hr Q12HR ROXANNE Administration Protocol Sodium Chloride 100 mls @ 999 mls/hr 03/15/19 08:11 Nacl 0.9% IV DUKE PRN Hypotension Insulin Glargine 40 units 03/19/19 08:00 03/21/19 08:43 Lantus SUB-Q 40 units QAMDIAB ROXANNE Administration Insulin Human Lispro 0 unit 03/11/19 06:00 03/21/19 12:09 Humalog SUB-Q 6 unit Q6HR ROXANNE Administration Protocol Lansoprazole 30 mg 03/18/19 10:00 03/21/19 09:50 Prevacid Solutab FEEDTUBE 30 mg QDAY ROXANNE Administration Midodrine 10 mg 03/19/19 16:00 03/21/19 12:13 Proamatine PO 10 mg TID@0800,1200,1600 ROXANNE Administration Multi-Ingred Cream/Lotion/Oil/Oint 1 applic 03/10/19 19:50 Artificial Tears Ophth Oint OU Q4HR PRN Dry Eye(s) Ondansetron HCl 4 mg 03/11/19 00:40 03/19/19 21:53 Zofran IV 4 mg Q8H PRN Administration Nausea And Vomiting Simple Syrup 15 ml 03/15/19 13:21 Simple Syrup FEEDTUBE PRN PRN Hypoglycemia Simple Syrup 30 ml 03/15/19 13:21 Simple Syrup FEEDTUBE PRN PRN Hypoglycemia Sodium Bicarbonate 325 mg 03/15/19 13:21 Sodium Bicarbonate FEEDTUBE PRN PRN For Clogged Feeding Tube Sodium Chloride 10 ml 03/11/19 10:00 03/21/19 09:50 Sodium Chloride Flush Syringe 10 Ml IV 10 ml BID ROXANNE Administration Sodium Chloride 10 ml 03/11/19 00:40 Sodium Chloride Flush Syringe 10 Ml IV PRN PRN LINE FLUSH Nutrition/Malnutrition Assess - Dietary Evaluation Nutrition/Malnutrition Findings: Nutrition Notes Start: 03/12/19 11:38 Freq: Status: Active Protocol: Document 03/19/19 17:16 RM (Rec: 03/19/19 17:19 RM [email or web address]) Nutrition Notes Initial or Follow up Reassessment Current Diagnosis CKD(stage I-IV),Coronary Artery Disease,Diabetes,Sepsis ,Hypertension,Respiratory Failure Other Pertinent Diagnosis s/p cardiac arrest, anoxic brain injury Current Diet TF - Nepro at 45ml/hr Labs/Tests Reviewed Pertinent Medications Reviewed Height 5 ft 4 in Weight 147.8 [address] Body Weight (kg) 59.09 BMI 55.9 Subjective/Other Information Observed Nepro infusing at goal rate. Per nurse pt is tolerating TF. Percent of energy/protein needs met: 73% energy 71% pro Burn Absent Trauma Absent #1 Nutrition Diagnosis Inadequate oral intake Diagnosis Progress(for reassessment Continues documentation) Is patient on ventilator? Yes Is Patient Ambulatory and/or Out of Bed No REE-([facility]-confined to bed) 2672.304 Calculation Used for Recommendations 65-70% energy needs Additional Notes Energy needs: 9225-3613 kcal/ day Pro needs 1.2-1.4g/kg adjBW: 124-145g/day Fluid needs 1-1.5L/day Nutrition Intervention Nutrition Support: Continue Nepro at 45ml/hr with 120ml water flush q4h. Kcal 1,944 Protein (gm) 87 Carbohydrates (gm) 174 Fat (gm) 104 Fluid (mL) 785 Fiber (gm) 14 Goal #1 TF tolerance Goal #2 TF to meet nutrient needs as best possible Follow-Up By: 03/26/19 Additional Comments Follow for TF tolerance
--- NOTE | 2019-03-21 13:15 | Progress Note ---
Assessment and Plan - Patient Problems (1) Acute on chronic renal failure Current Visit: Yes Status: Acute Qualifiers: Chronic kidney disease stage: stage 3 (moderate) Plan to address problem: Likely secondary to acute tubular necrosis. Patient remains anuric. ANCA studies negative, complements within normal limits. Will maintain on MWF inpatient HD schedule with extra isolated UF sessions as necessary . (2) Hyperkalemia Current Visit: Yes Status: Acute Plan to address problem: Potassium levels stabilized on dialysis. (3) Cardiopulmonary arrest with successful resuscitation Current Visit: Yes Status: Acute Plan to address problem: Return of spontaneous circulation in the emergency room about 2 doses of epinephrine. Patient is on Levothroid at this time and cardiology evaluation has been reviewed and noted. Patient also had a repeat echocardiogram done and reviewed with EF 40-45% and impaired relaxation noted. We'll follow up with further recommendations from cardiology standpoint. (4) Sepsis Current Visit: Yes Status: Acute Qualifiers: Sepsis type: Streptococcus group B Qualified Code(s): A40.1 - Sepsis due to streptococcus, group B Plan to address problem: Streptococcal bacteremia noted on initial blood cultures. Patient is on the antibiotics at this time per infectious disease recommendations. Please ensure that antibiotics are dosed appropriately for his decreased creatinine clearance and renal function. (5) Metabolic acidosis Current Visit: Yes Status: Acute Plan to address problem: Will address with hemodialysis. Bicarbonate gtt has been discontinued. (6) Hypotension Current Visit: Yes Status: Acute Qualifiers: Hypotension type: unspecified hypotension type Qualified Code(s): I95.9 - Hypotension, unspecified Plan to address problem: Patient continues on appropriate pressor support. Agree with holding any antihypertensive medication at this time given his hemodynamic instability. We'll continue to monitor closely. (7) Type 2 diabetes mellitus with diabetic chronic kidney disease Current Visit: Yes Status: Acute Qualifiers: Chronic kidney disease stage: stage 3 (moderate) Plan to address problem: diabetes management per primary attending. Subjective Date of service: 03/21/19 Principal diagnosis: high wbc - blasts Interval history: No acute changes overnight. Patient is being dialyzed at bedside. Levophed down to 2 mcg/kg/min. 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 Objective - Vital Signs Vital signs: Vital Signs - 12hr 03/21/19 03/21/19 03/21/19 01:30 02:00 02:30 Temperature Pulse Rate 98 H 99 H 101 H Pulse Rate [ Anterior Bilateral Throughout] Pulse Rate [ From Monitor] Respiratory 28 H 30 H 30 H Rate Respiratory Rate [Anterior Bilateral Throughout] Blood Pressure 137/39 137/21 O2 Sat by Pulse 95 97 96 Oximetry O2 Sat by Pulse Oximetry [ Anterior Bilateral Throughout] 03/21/19 03/21/19 03/21/19 03:00 03:07 03:30 Temperature Pulse Rate 102 H 107 H Pulse Rate [ Anterior Bilateral Throughout] Pulse Rate [ From Monitor] Respiratory 32 H 33 H Rate Respiratory Rate [Anterior Bilateral Throughout] Blood Pressure 143/39 134/32 132/43 O2 Sat by Pulse 94 93 94 Oximetry O2 Sat by Pulse Oximetry [ Anterior Bilateral Throughout] 03/21/19 03/21/19 03/21/19 04:00 04:23 04:30 Temperature 103.2 F H 103.0 F H Pulse Rate 108 H 117 H Pulse Rate [ Anterior Bilateral Throughout] Pulse Rate [ 109 H From Monitor] Respiratory 33 H 41 H Rate Respiratory Rate [Anterior Bilateral Throughout] Blood Pressure 129/45 158/62 O2 Sat by Pulse 93 91 Oximetry O2 Sat by Pulse Oximetry [ Anterior Bilateral Throughout] 03/21/19 03/21/19 03/21/19 05:00 05:30 06:00 Temperature Pulse Rate 116 H 110 H 108 H Pulse Rate [ Anterior Bilateral Throughout] Pulse Rate [ From Monitor] Respiratory 36 H 40 H 39 H Rate Respiratory Rate [Anterior Bilateral Throughout] Blood Pressure 105/62 116/52 122/51 O2 Sat by Pulse 94 96 97 Oximetry O2 Sat by Pulse Oximetry [ Anterior Bilateral Throughout] 03/21/19 03/21/19 03/21/19 06:30 07:00 07:30 Temperature Pulse Rate 107 H 102 H 98 H Pulse Rate [ Anterior Bilateral Throughout] Pulse Rate [ From Monitor] Respiratory 41 H 41 H 33 H Rate Respiratory Rate [Anterior Bilateral Throughout] Blood Pressure 134/51 122/38 131/36 O2 Sat by Pulse 99 99 100 Oximetry O2 Sat by Pulse Oximetry [ Anterior Bilateral Throughout] 03/21/19 03/21/19 03/21/19 07:37 07:53 08:00 Temperature 100 F H Pulse Rate 104 H 97 H Pulse Rate [ 100 H Anterior Bilateral Throughout] Pulse Rate [ 101 H From Monitor] Respiratory 17 Rate Respiratory 38 H Rate [Anterior Bilateral Throughout] Blood Pressure 146/70 121/30 O2 Sat by Pulse 99 98 Oximetry O2 Sat by Pulse Oximetry [ Anterior Bilateral Throughout] 03/21/19 03/21/19 03/21/19 08:10 08:30 09:00 Temperature Pulse Rate 96 H 97 H Pulse Rate [ 97 H Anterior Bilateral Throughout] Pulse Rate [ From Monitor] Respiratory 17 33 H Rate Respiratory 26 H Rate [Anterior Bilateral Throughout] Blood Pressure 118/31 109/45 O2 Sat by Pulse 97 98 Oximetry O2 Sat by Pulse Oximetry [ Anterior Bilateral Throughout] 03/21/19 03/21/19 03/21/19 09:30 09:49 10:00 Temperature 98.7 F Pulse Rate 95 H 94 H Pulse Rate [ Anterior Bilateral Throughout] Pulse Rate [ From Monitor] Respiratory 39 H 33 H Rate Respiratory Rate [Anterior Bilateral Throughout] Blood Pressure 127/43 127/43 O2 Sat by Pulse 98 98 Oximetry O2 Sat by Pulse Oximetry [ Anterior Bilateral Throughout] 03/21/19 03/21/19 03/21/19 10:15 10:30 10:45 Temperature 98.7 F Pulse Rate 91 H 92 H 87 Pulse Rate [ Anterior Bilateral Throughout] Pulse Rate [ From Monitor] Respiratory 30 H 33 H Rate Respiratory Rate [Anterior Bilateral Throughout] Blood Pressure 140/80 120/38 129/26 O2 Sat by Pulse 98 Oximetry O2 Sat by Pulse 99 Oximetry [ Anterior Bilateral Throughout] 03/21/19 03/21/19 03/21/19 11:00 11:15 11:30 Temperature Pulse Rate 89 92 H 94 H Pulse Rate [ Anterior Bilateral Throughout] Pulse Rate [ From Monitor] Respiratory 32 H 36 H Rate Respiratory Rate [Anterior Bilateral Throughout] Blood Pressure 145/63 168/60 168/60 O2 Sat by Pulse 98 93 Oximetry O2 Sat by Pulse Oximetry [ Anterior Bilateral Throughout] 03/21/19 03/21/19 11:40 12:00 Temperature 98.7 F Pulse Rate 95 H 97 H Pulse Rate [ Anterior Bilateral Throughout] Pulse Rate [ 96 H From Monitor] Respiratory 35 H Rate Respiratory Rate [Anterior Bilateral Throughout] Blood Pressure 147/66 152/93 O2 Sat by Pulse 99 98 Oximetry O2 Sat by Pulse Oximetry [ Anterior Bilateral Throughout] - General Appearance General appearance: obese, chronically ill, intubated EENT: ATNC Neck: no JVD Respiratory: Present: Decreased Breath Sounds Cardiology: regular, S1S2 Gastrointestinal: normal Integumentary: no rash Neurologic: other (comatose ) Musculoskeletal: other (+edema ) - Lab 03/20/19 04:45 03/20/19 04:45 Most recent lab results Calcium 7.8 mg/dL (8.4-10.2) L 03/20/19 04:45 Magnesium 1.80 mg/dL (1.7-2.3) 03/17/19 05:30 - Allied health notes Allied health notes reviewed: nursing Medications & Allergies - Medications Allergies/Adverse Reactions: Allergies No Known Allergies Allergy (Verified 03/10/19 17:37) Home Medications: Home Medications Medication Instructions Recorded Confirmed Last Taken Type Allopurinol [Zyloprim] 300 mg PO DAILY 03/10/19 03/10/19 Unknown History Aspirin [Adult Aspirin] 81 mg PO DAILY 03/10/19 03/10/19 Unknown History Atorvastatin [Lipitor Tab] 80 mg PO DAILY 03/10/19 03/10/19 Unknown History Carvedilol [Coreg] 12.5 mg PO BID 03/10/19 03/10/19 Unknown History Clopidogrel [Plavix] 75 mg PO DAILY 03/10/19 03/10/19 Unknown History Gabapentin [Neurontin] 300 mg PO BID 03/10/19 03/10/19 Unknown History Insulin Lispro Protamin/Lispro 33 unit SQ BID 03/10/19 03/10/19 Unknown History [Humalog Mix 75-25 Vial] Lisinopril [Zestril TAB] 10 mg PO DAILY 03/10/19 03/10/19 Unknown History Pantoprazole [Protonix] 40 mg PO DAILY 03/10/19 03/10/19 Unknown History Sitagliptin Phosphate [Januvia] 50 mg PO DAILY 03/10/19 03/10/19 Unknown History Active Medications: Generic Name Dose Route Start Last Admin Trade Name Freq PRN Reason Stop Dose Admin Acetaminophen 650 mg 03/11/19 00:40 03/21/19 04:17 Tylenol PO 650 mg Q4H PRN Administration Pain MILD(1-3)/Fever >100.5/[place] Acetaminophen 650 mg 03/11/19 00:40 03/12/19 04:53 Tylenol IN 650 mg Q4H PRN Administration Pain MILD(1-3)/Fever >100.5/[place] Albumin Human 12.5 gm 03/13/19 09:29 Alburx 25% (Albumin) IV DUKE PRN Hypotension Albuterol 2.5 mg 03/17/19 16:00 03/21/19 07:53 Proventil IH 2.5 mg Q8HRT ROXANNE Administration Lipase/Protease/Amylase 1 each 03/15/19 13:21 Pancrenydia Manzo 10,500 Unit FEEDTUBE PRN PRN For Clogged Feeding Tube Dextrose 50 ml 03/11/19 00:44 D50w (25gm) Syringe IV PRN PRN Hypoglycemia Fentanyl 50 mcg 03/11/19 07:50 03/18/19 11:44 Sublimaze IV 50 mcg Q10MIN PRN Administration ANALGESIA Hydrophilic Ointment 1 applic 03/10/19 19:50 Vaseline Lip Therapy TP Q2HR PRN Dry Lips Propofol 1,000 mg in 100 mls @ 4.082 mls/hr 03/10/19 20:00 03/11/19 14:30 Diprivan 10 Mg/Ml IV Infused TITR ROXANNE Titration Protocol 5 MCG/KG/MIN Norepinephrine 4 mg in 250 mls @ 7.5 mls/hr 03/10/19 21:00 03/21/19 10:09 Levophed Drip 4 Mg/Ns 250 Ml IV 2 mcg/min TITR ROXANNE 7.5 mls/hr Titration Protocol 2 MCG/MIN Fentanyl Citrate 2,000 mcg in 100 mls @ 6.804 mls/hr 03/11/19 08:00 03/20/19 09:05 Fentanyl Drip Premix IV 0 mcg/kg/hr TITR ROXANNE 0 mls/hr Titration Protocol 1 MCG/KG/HR Ceftriaxone Sodium 2 gm in 100 mls @ 200 mls/hr 03/11/19 13:00 03/20/19 22:17 Rocephin/Ns 2 Gm/100 Ml IV 200 mls/hr Q12HR ROXANNE Administration Protocol Sodium Chloride 100 mls @ 999 mls/hr 03/15/19 08:11 Nacl 0.9% IV DUKE PRN Hypotension Insulin Glargine 40 units 03/19/19 08:00 03/21/19 08:43 Lantus SUB-Q 40 units QAMDIAB ROXANNE Administration Insulin Human Lispro 0 unit 03/11/19 06:00 03/21/19 12:09 Humalog SUB-Q 6 unit Q6HR ROXANNE Administration Protocol Lansoprazole 30 mg 03/18/19 10:00 03/21/19 09:50 Prevacid Solutab FEEDTUBE 30 mg QDAY ROXANNE Administration Midodrine 10 mg 03/19/19 16:00 03/21/19 12:13 Proamatine PO 10 mg TID@0800,1200,1600 ROXANNE Administration Multi-Ingred Cream/Lotion/Oil/Oint 1 applic 03/10/19 19:50 Artificial Tears Ophth Oint OU Q4HR PRN Dry Eye(s) Ondansetron HCl 4 mg 03/11/19 00:40 03/19/19 21:53 Zofran IV 4 mg Q8H PRN Administration Nausea And Vomiting Simple Syrup 15 ml 03/15/19 13:21 Simple Syrup FEEDTUBE PRN PRN Hypoglycemia Simple Syrup 30 ml 03/15/19 13:21 Simple Syrup FEEDTUBE PRN PRN Hypoglycemia Sodium Bicarbonate 325 mg 03/15/19 13:21 Sodium Bicarbonate FEEDTUBE PRN PRN For Clogged Feeding Tube Sodium Chloride 10 ml 03/11/19 10:00 03/21/19 09:50 Sodium Chloride Flush Syringe 10 Ml IV 10 ml BID ROXANNE Administration Sodium Chloride 10 ml 03/11/19 00:40 Sodium Chloride Flush Syringe 10 Ml IV PRN PRN LINE FLUSH
[2019-03-21] MEDS ORDERED: NACL 0.9% 1000 ML 2,000 ML ONE (13:29)
--- NOTE | 2019-03-21 13:52 | Progress Note ---
Subjective Date of service: 03/21/19 Principal diagnosis: high wbc - blasts Interval history: COMMENT ON EEG diffuse slowing only and no seizures dicated full report and asked nurse call Dr. Fitzgerald Objective - Vital Sign Vital Signs - 12hr 03/21/19 03/21/19 03/21/19 02:00 02:30 03:00 Temperature Pulse Rate 99 H 101 H 102 H Pulse Rate [ Anterior Bilateral Throughout] Pulse Rate [ From Monitor] Respiratory 30 H 30 H 32 H Rate Respiratory Rate [Anterior Bilateral Throughout] Blood Pressure 137/21 143/39 O2 Sat by Pulse 97 96 94 Oximetry O2 Sat by Pulse Oximetry [ Anterior Bilateral Throughout] 03/21/19 03/21/19 03/21/19 03:07 03:30 04:00 Temperature 103.2 F H Pulse Rate 107 H 108 H Pulse Rate [ Anterior Bilateral Throughout] Pulse Rate [ 109 H From Monitor] Respiratory 33 H 33 H Rate Respiratory Rate [Anterior Bilateral Throughout] Blood Pressure 134/32 132/43 129/45 O2 Sat by Pulse 93 94 93 Oximetry O2 Sat by Pulse Oximetry [ Anterior Bilateral Throughout] 03/21/19 03/21/19 03/21/19 04:23 04:30 05:00 Temperature 103.0 F H Pulse Rate 117 H 116 H Pulse Rate [ Anterior Bilateral Throughout] Pulse Rate [ From Monitor] Respiratory 41 H 36 H Rate Respiratory Rate [Anterior Bilateral Throughout] Blood Pressure 158/62 105/62 O2 Sat by Pulse 91 94 Oximetry O2 Sat by Pulse Oximetry [ Anterior Bilateral Throughout] 03/21/19 03/21/19 03/21/19 05:30 06:00 06:30 Temperature Pulse Rate 110 H 108 H 107 H Pulse Rate [ Anterior Bilateral Throughout] Pulse Rate [ From Monitor] Respiratory 40 H 39 H 41 H Rate Respiratory Rate [Anterior Bilateral Throughout] Blood Pressure 116/52 122/51 134/51 O2 Sat by Pulse 96 97 99 Oximetry O2 Sat by Pulse Oximetry [ Anterior Bilateral Throughout] 03/21/19 03/21/19 03/21/19 07:00 07:30 07:37 Temperature Pulse Rate 102 H 98 H 104 H Pulse Rate [ Anterior Bilateral Throughout] Pulse Rate [ From Monitor] Respiratory 41 H 33 H Rate Respiratory Rate [Anterior Bilateral Throughout] Blood Pressure 122/38 131/36 146/70 O2 Sat by Pulse 99 100 99 Oximetry O2 Sat by Pulse Oximetry [ Anterior Bilateral Throughout] 03/21/19 03/21/19 03/21/19 07:53 08:00 08:10 Temperature 100 F H Pulse Rate 97 H Pulse Rate [ 100 H 97 H Anterior Bilateral Throughout] Pulse Rate [ 101 H From Monitor] Respiratory 17 Rate Respiratory 38 H 26 H Rate [Anterior Bilateral Throughout] Blood Pressure 121/30 O2 Sat by Pulse 98 Oximetry O2 Sat by Pulse Oximetry [ Anterior Bilateral Throughout] 03/21/19 03/21/19 03/21/19 08:30 09:00 09:30 Temperature Pulse Rate 96 H 97 H 95 H Pulse Rate [ Anterior Bilateral Throughout] Pulse Rate [ From Monitor] Respiratory 17 33 H 39 H Rate Respiratory Rate [Anterior Bilateral Throughout] Blood Pressure 118/31 109/45 127/43 O2 Sat by Pulse 97 98 98 Oximetry O2 Sat by Pulse Oximetry [ Anterior Bilateral Throughout] 03/21/19 03/21/19 03/21/19 09:49 10:00 10:15 Temperature 98.7 F 98.7 F Pulse Rate 94 H 91 H Pulse Rate [ Anterior Bilateral Throughout] Pulse Rate [ From Monitor] Respiratory 33 H 30 H Rate Respiratory Rate [Anterior Bilateral Throughout] Blood Pressure 127/43 140/80 O2 Sat by Pulse 98 Oximetry O2 Sat by Pulse 99 Oximetry [ Anterior Bilateral Throughout] 03/21/19 03/21/19 03/21/19 10:30 10:45 11:00 Temperature Pulse Rate 92 H 87 89 Pulse Rate [ Anterior Bilateral Throughout] Pulse Rate [ From Monitor] Respiratory 33 H 32 H Rate Respiratory Rate [Anterior Bilateral Throughout] Blood Pressure 120/38 129/26 145/63 O2 Sat by Pulse 98 98 Oximetry O2 Sat by Pulse Oximetry [ Anterior Bilateral Throughout] 03/21/19 03/21/19 03/21/19 11:15 11:30 11:40 Temperature Pulse Rate 92 H 94 H 95 H Pulse Rate [ Anterior Bilateral Throughout] Pulse Rate [ From Monitor] Respiratory 36 H Rate Respiratory Rate [Anterior Bilateral Throughout] Blood Pressure 168/60 168/60 147/66 O2 Sat by Pulse 93 99 Oximetry O2 Sat by Pulse Oximetry [ Anterior Bilateral Throughout] 03/21/19 03/21/19 03/21/19 11:45 12:00 12:15 Temperature 98.7 F Pulse Rate 95 H 97 H 98 H Pulse Rate [ Anterior Bilateral Throughout] Pulse Rate [ 96 H From Monitor] Respiratory 35 H Rate Respiratory Rate [Anterior Bilateral Throughout] Blood Pressure 150/65 152/93 151/68 O2 Sat by Pulse 98 Oximetry O2 Sat by Pulse Oximetry [ Anterior Bilateral Throughout] 03/21/19 03/21/19 03/21/19 12:30 13:00 13:15 Temperature Pulse Rate 94 H 99 H 101 H Pulse Rate [ Anterior Bilateral Throughout] Pulse Rate [ From Monitor] Respiratory 36 H 37 H Rate Respiratory Rate [Anterior Bilateral Throughout] Blood Pressure 148/68 136/72 135/31 O2 Sat by Pulse 100 97 Oximetry O2 Sat by Pulse Oximetry [ Anterior Bilateral Throughout] 03/21/19 13:30 Temperature Pulse Rate 103 H Pulse Rate [ Anterior Bilateral Throughout] Pulse Rate [ From Monitor] Respiratory 36 H Rate Respiratory Rate [Anterior Bilateral Throughout] Blood Pressure 129/57 O2 Sat by Pulse 98 Oximetry O2 Sat by Pulse Oximetry [ Anterior Bilateral Throughout] - Laboratory Findings CBC and BMP: 03/20/19 04:45 03/20/19 04:45 Abnormal Lab Findings: Abnormal Labs 03/10/19 03/10/19 03/10/19 17:57 17:57 17:57 WBC 1.2 L* RBC 2.46 L Hgb 7.9 L Hct 23.2 L MCV MCHC RDW 18.2 H Plt Count 47 L [place] # 0.9 H Seg Neuts % (Manual) 6.0 L Lymphocytes % (Manual) 74.0 H Monocytes % (Manual) 20.0 H Nucleated RBC % Seg Neutrophils # 0.1 L Seg Neutrophils # Man 0.1 L Lymphocytes # (Manual) 0.9 L Monocytes # (Manual) INR POC ABG pH POC ABG pCO2 POC ABG pO2 Potassium Chloride Carbon Dioxide BUN 46 H Creatinine 2.9 H Glucose 200 H POC Glucose Lactic Acid 2.50 H* Calcium 7.6 L Total Bilirubin AST ALT Lactate Dehydrogenase Total Creatine Kinase CK-MB (CK-2) Troponin T Total Protein Albumin 3.2 L Cholesterol LDL Cholesterol Direct HDL Cholesterol Urine WBC (Auto) Crossmatch 03/10/19 03/10/19 03/10/19 17:57 18:01 18:52 WBC RBC Hgb Hct MCV MCHC RDW Plt Count [place] # Seg Neuts % (Manual) Lymphocytes % (Manual) Monocytes % (Manual) Nucleated RBC % Seg Neutrophils # Seg Neutrophils # Man Lymphocytes # (Manual) Monocytes # (Manual) INR 1.15 H POC ABG pH POC ABG pCO2 POC ABG pO2 Potassium Chloride Carbon Dioxide BUN Creatinine Glucose POC Glucose 234 H Lactic Acid Calcium Total Bilirubin AST ALT Lactate Dehydrogenase Total Creatine Kinase CK-MB (CK-2) Troponin T Total Protein Albumin Cholesterol LDL Cholesterol Direct HDL Cholesterol Urine WBC (Auto) Crossmatch See Detail 03/10/19 03/10/19 03/10/19 19:16 21:32 23:06 WBC RBC Hgb Hct MCV MCHC RDW Plt Count [place] # Seg Neuts % (Manual) Lymphocytes % (Manual) Monocytes % (Manual) Nucleated RBC % Seg Neutrophils # Seg Neutrophils # Man Lymphocytes # (Manual) Monocytes # (Manual) INR POC ABG pH POC ABG pCO2 POC ABG pO2 315 H Potassium Chloride Carbon Dioxide BUN Creatinine Glucose POC Glucose Lactic Acid 2.80 H* Calcium Total Bilirubin AST ALT Lactate Dehydrogenase Total Creatine Kinase CK-MB (CK-2) Troponin T Total Protein Albumin Cholesterol LDL Cholesterol Direct HDL Cholesterol Urine WBC (Auto) 24.0 H Crossmatch 03/10/19 03/11/19 03/11/19 23:29 00:50 05:01 WBC RBC 2.29 L Hgb 7.3 L Hct 22.2 L MCV 97 H MCHC RDW 18.2 H Plt Count 40 L [place] # Seg Neuts % (Manual) 8.0 L Lymphocytes % (Manual) 67.0 H Monocytes % (Manual) 24.0 H Nucleated RBC % 5.0 H Seg Neutrophils # Seg Neutrophils # Man 0.4 L Lymphocytes # (Manual) Monocytes # (Manual) 1.2 H INR POC ABG pH POC ABG pCO2 POC ABG pO2 Potassium Chloride Carbon Dioxide BUN Creatinine Glucose POC Glucose 237 H Lactic Acid Calcium Total Bilirubin AST ALT Lactate Dehydrogenase Total Creatine Kinase 513 H CK-MB (CK-2) Troponin T 0.075 H Total Protein Albumin Cholesterol < 4 L LDL Cholesterol Direct 4 L HDL Cholesterol < 3 L Urine WBC (Auto) Crossmatch 03/11/19 03/11/19 03/11/19 05:01 06:06 06:07 WBC RBC Hgb Hct MCV MCHC RDW Plt Count [place] # Seg Neuts % (Manual) Lymphocytes % (Manual) Monocytes % (Manual) Nucleated RBC % Seg Neutrophils # Seg Neutrophils # Man Lymphocytes # (Manual) Monocytes # (Manual) INR POC ABG pH POC ABG pCO2 32.8 L POC ABG pO2 Potassium 5.3 H Chloride Carbon Dioxide 19 L BUN 49 H Creatinine 3.7 H Glucose 203 H POC Glucose Lactic Acid Calcium 7.1 L Total Bilirubin AST ALT Lactate Dehydrogenase Total Creatine Kinase 1156 H CK-MB (CK-2) 4.6 H Troponin T 0.077 H Total Protein Albumin Cholesterol LDL Cholesterol Direct HDL Cholesterol Urine WBC (Auto) Crossmatch 03/11/19 03/11/19 03/11/19 06:35 13:07 18:36 WBC RBC Hgb Hct MCV MCHC RDW Plt Count [place] # Seg Neuts % (Manual) Lymphocytes % (Manual) Monocytes % (Manual) Nucleated RBC % Seg Neutrophils # Seg Neutrophils # Man Lymphocytes # (Manual) Monocytes # (Manual) INR POC ABG pH POC ABG pCO2 POC ABG pO2 Potassium Chloride Carbon Dioxide BUN Creatinine Glucose POC Glucose 209 H 185 H 126 H Lactic Acid Calcium Total Bilirubin AST ALT Lactate Dehydrogenase Total Creatine Kinase CK-MB (CK-2) Troponin T Total Protein Albumin Cholesterol LDL Cholesterol Direct HDL Cholesterol Urine WBC (Auto) Crossmatch 03/11/19 03/12/19 03/12/19 23:45 04:25 05:06 WBC RBC 2.24 L Hgb 7.2 L Hct 21.9 L MCV 98 H MCHC RDW 18.3 H Plt Count 38 L [place] # Seg Neuts % (Manual) 4.0 L Lymphocytes % (Manual) Monocytes % (Manual) 69.0 H Nucleated RBC % Seg Neutrophils # Seg Neutrophils # Man 0.3 L Lymphocytes # (Manual) Monocytes # (Manual) 4.9 H INR POC ABG pH 7.320 L POC ABG pCO2 POC ABG pO2 Potassium Chloride Carbon Dioxide BUN Creatinine Glucose POC Glucose 137 H Lactic Acid Calcium Total Bilirubin AST ALT Lactate Dehydrogenase Total Creatine Kinase CK-MB (CK-2) Troponin T Total Protein Albumin Cholesterol LDL Cholesterol Direct HDL Cholesterol Urine WBC (Auto) Crossmatch 03/12/19 03/12/19 03/12/19 05:06 05:57 07:19 WBC RBC Hgb Hct MCV MCHC RDW Plt Count [place] # Seg Neuts % (Manual) Lymphocytes % (Manual) Monocytes % (Manual) Nucleated RBC % Seg Neutrophils # Seg Neutrophils # Man Lymphocytes # (Manual) Monocytes # (Manual) INR POC ABG pH POC ABG pCO2 POC ABG pO2 Potassium 6.6 H* D 6.6 H* Chloride Carbon Dioxide 17 L BUN 66 H Creatinine 5.6 H D Glucose 149 H POC Glucose 165 H Lactic Acid Calcium 6.5 L Total Bilirubin 1.90 H AST 782 H ALT 382 H Lactate Dehydrogenase Total Creatine Kinase CK-MB (CK-2) Troponin T Total Protein 5.7 L Albumin 2.7 L Cholesterol LDL Cholesterol Direct HDL Cholesterol Urine WBC (Auto) Crossmatch 03/12/19 03/12/19 03/12/19 15:24 18:55 23:45 WBC RBC Hgb Hct MCV MCHC RDW Plt Count [place] # Seg Neuts % (Manual) Lymphocytes % (Manual) Monocytes % (Manual) Nucleated RBC % Seg Neutrophils # Seg Neutrophils # Man Lymphocytes # (Manual) Monocytes # (Manual) INR POC ABG pH POC ABG pCO2 POC ABG pO2 Potassium Chloride Carbon Dioxide BUN Creatinine Glucose POC Glucose 167 H 212 H 197 H Lactic Acid Calcium Total Bilirubin AST ALT Lactate Dehydrogenase Total Creatine Kinase CK-MB (CK-2) Troponin T Total Protein Albumin Cholesterol LDL Cholesterol Direct HDL Cholesterol Urine WBC (Auto) Crossmatch 03/13/19 03/13/19 03/13/19 05:37 09:11 09:11 WBC RBC 1.99 L Hgb 6.4 L Hct 18.7 L* MCV MCHC RDW 18.5 H Plt Count 36 L [place] # Seg Neuts % (Manual) Lymphocytes % (Manual) Monocytes % (Manual) Nucleated RBC % Seg Neutrophils # Seg Neutrophils # Man Lymphocytes # (Manual) Monocytes # (Manual) INR POC ABG pH POC ABG pCO2 POC ABG pO2 Potassium Chloride Carbon Dioxide BUN 52 H Creatinine 5.5 H Glucose 235 H POC Glucose 250 H Lactic Acid Calcium 6.2 L Total Bilirubin AST ALT Lactate Dehydrogenase Total Creatine Kinase CK-MB (CK-2) Troponin T Total Protein Albumin Cholesterol LDL Cholesterol Direct HDL Cholesterol Urine WBC (Auto) Crossmatch 03/13/19 03/13/19 03/13/19 11:06 12:38 18:11 WBC RBC 2.07 L Hgb 6.6 L Hct 19.6 L* MCV 95 H MCHC RDW 18.5 H Plt Count 33 L [place] # Seg Neuts % (Manual) Lymphocytes % (Manual) Monocytes % (Manual) Nucleated RBC % Seg Neutrophils # Seg Neutrophils # Man Lymphocytes # (Manual) Monocytes # (Manual) INR POC ABG pH POC ABG pCO2 POC ABG pO2 Potassium Chloride Carbon Dioxide BUN Creatinine Glucose POC Glucose 268 H 255 H Lactic Acid Calcium Total Bilirubin AST ALT Lactate Dehydrogenase Total Creatine Kinase CK-MB (CK-2) Troponin T Total Protein Albumin Cholesterol LDL Cholesterol Direct HDL Cholesterol Urine WBC (Auto) Crossmatch 03/13/19 03/13/19 03/13/19 19:12 20:58 23:49 WBC RBC Hgb Hct MCV MCHC RDW Plt Count [place] # Seg Neuts % (Manual) Lymphocytes % (Manual) Monocytes % (Manual) Nucleated RBC % Seg Neutrophils # Seg Neutrophils # Man Lymphocytes # (Manual) Monocytes # (Manual) INR POC ABG pH 7.466 H POC ABG pCO2 POC ABG pO2 Potassium Chloride Carbon Dioxide BUN Creatinine Glucose POC Glucose 289 H Lactic Acid Calcium Total Bilirubin AST ALT Lactate Dehydrogenase Total Creatine Kinase CK-MB (CK-2) Troponin T Total Protein Albumin Cholesterol LDL Cholesterol Direct HDL Cholesterol Urine WBC (Auto) Crossmatch See Detail 03/14/19 03/14/19 03/14/19 05:51 11:39 13:43 WBC 14.0 H RBC 2.78 L Hgb 8.9 L Hct 26.0 L D MCV MCHC RDW 17.9 H Plt Count 42 L [place] # Seg Neuts % (Manual) 2.0 L Lymphocytes % (Manual) 84.0 H Monocytes % (Manual) 13.0 H Nucleated RBC % Seg Neutrophils # Seg Neutrophils # Man 0.3 L Lymphocytes # (Manual) 11.8 H Monocytes # (Manual) 1.8 H INR POC ABG pH POC ABG pCO2 POC ABG pO2 Potassium Chloride Carbon Dioxide BUN Creatinine Glucose POC Glucose 305 H 283 H Lactic Acid Calcium Total Bilirubin AST ALT Lactate Dehydrogenase Total Creatine Kinase CK-MB (CK-2) Troponin T Total Protein Albumin Cholesterol LDL Cholesterol Direct HDL Cholesterol Urine WBC (Auto) Crossmatch 03/14/19 03/15/19 03/15/19 18:12 00:43 04:24 WBC RBC Hgb Hct MCV MCHC RDW Plt Count [place] # Seg Neuts % (Manual) Lymphocytes % (Manual) Monocytes % (Manual) Nucleated RBC % Seg Neutrophils # Seg Neutrophils # Man Lymphocytes # (Manual) Monocytes # (Manual) INR POC ABG pH 7.497 H POC ABG pCO2 34.0 L POC ABG pO2 Potassium Chloride Carbon Dioxide BUN Creatinine Glucose POC Glucose 313 H 236 H Lactic Acid Calcium Total Bilirubin AST ALT Lactate Dehydrogenase Total Creatine Kinase CK-MB (CK-2) Troponin T Total Protein Albumin Cholesterol LDL Cholesterol Direct HDL Cholesterol Urine WBC (Auto) Crossmatch 03/15/19 03/15/19 03/15/19 07:15 07:15 07:24 WBC 16.1 H RBC 2.50 L Hgb 8.1 L Hct 23.4 L MCV MCHC 35 H RDW 18.5 H Plt Count 42 L [place] # Seg Neuts % (Manual) 2.0 L Lymphocytes % (Manual) 41.0 H Monocytes % (Manual) 11.0 H Nucleated RBC % Seg Neutrophils # Seg Neutrophils # Man 0.3 L Lymphocytes # (Manual) 6.6 H Monocytes # (Manual) 1.8 H INR POC ABG pH POC ABG pCO2 POC ABG pO2 Potassium Chloride 96.0 L Carbon Dioxide BUN 47 H Creatinine 5.0 H Glucose 287 H POC Glucose 285 H Lactic Acid Calcium 7.2 L D Total Bilirubin AST 522 H ALT 474 H Lactate Dehydrogenase Total Creatine Kinase CK-MB (CK-2) Troponin T Total Protein 5.7 L Albumin 2.4 L Cholesterol LDL Cholesterol Direct HDL Cholesterol Urine WBC (Auto) Crossmatch 03/15/19 03/15/19 03/15/19 11:18 17:12 23:19 WBC RBC Hgb Hct MCV MCHC RDW Plt Count [place] # Seg Neuts % (Manual) Lymphocytes % (Manual) Monocytes % (Manual) Nucleated RBC % Seg Neutrophils # Seg Neutrophils # Man Lymphocytes # (Manual) Monocytes # (Manual) INR POC ABG pH POC ABG pCO2 POC ABG pO2 Potassium Chloride Carbon Dioxide BUN Creatinine Glucose POC Glucose 287 H 221 H 297 H Lactic Acid Calcium Total Bilirubin AST ALT Lactate Dehydrogenase Total Creatine Kinase CK-MB (CK-2) Troponin T Total Protein Albumin Cholesterol LDL Cholesterol Direct HDL Cholesterol Urine WBC (Auto) Crossmatch 03/16/19 03/16/19 03/16/19 03:49 05:26 11:26 WBC RBC Hgb Hct MCV MCHC RDW Plt Count [place] # Seg Neuts % (Manual) Lymphocytes % (Manual) Monocytes % (Manual) Nucleated RBC % Seg Neutrophils # Seg Neutrophils # Man Lymphocytes # (Manual) Monocytes # (Manual) INR POC ABG pH 7.487 H POC ABG pCO2 34.3 L POC ABG pO2 254 H Potassium Chloride Carbon Dioxide BUN Creatinine Glucose POC Glucose 271 H 298 H Lactic Acid Calcium Total Bilirubin AST ALT Lactate Dehydrogenase Total Creatine Kinase CK-MB (CK-2) Troponin T Total Protein Albumin Cholesterol LDL Cholesterol Direct HDL Cholesterol Urine WBC (Auto) Crossmatch 03/16/19 03/16/19 03/17/19 17:55 23:47 04:08 WBC RBC Hgb Hct MCV MCHC RDW Plt Count [place] # Seg Neuts % (Manual) Lymphocytes % (Manual) Monocytes % (Manual) Nucleated RBC % Seg Neutrophils # Seg Neutrophils # Man Lymphocytes # (Manual) Monocytes # (Manual) INR POC ABG pH 7.491 H POC ABG pCO2 31.1 L POC ABG pO2 70 L Potassium Chloride Carbon Dioxide BUN Creatinine Glucose POC Glucose 304 H 260 H Lactic Acid Calcium Total Bilirubin AST ALT Lactate Dehydrogenase Total Creatine Kinase CK-MB (CK-2) Troponin T Total Protein Albumin Cholesterol LDL Cholesterol Direct HDL Cholesterol Urine WBC (Auto) Crossmatch 03/17/19 03/17/19 03/17/19 05:30 05:30 05:55 WBC 18.8 H RBC 2.13 L Hgb 6.9 L Hct 20.0 L MCV MCHC 35 H RDW 18.4 H Plt Count 34 L [place] # Seg Neuts % (Manual) Lymphocytes % (Manual) Monocytes % (Manual) Nucleated RBC % Seg Neutrophils # Seg Neutrophils # Man Lymphocytes # (Manual) Monocytes # (Manual) INR POC ABG pH POC ABG pCO2 POC ABG pO2 Potassium 3.5 L Chloride 96.6 L Carbon Dioxide BUN 86 H Creatinine 7.4 H Glucose 222 H POC Glucose 218 H Lactic Acid Calcium 6.9 L Total Bilirubin AST ALT Lactate Dehydrogenase Total Creatine Kinase CK-MB (CK-2) Troponin T Total Protein Albumin Cholesterol LDL Cholesterol Direct HDL Cholesterol Urine WBC (Auto) Crossmatch 03/17/19 03/17/19 03/17/19 12:09 13:06 17:37 WBC RBC Hgb Hct MCV MCHC RDW Plt Count [place] # Seg Neuts % (Manual) Lymphocytes % (Manual) Monocytes % (Manual) Nucleated RBC % Seg Neutrophils # Seg Neutrophils # Man Lymphocytes # (Manual) Monocytes # (Manual) INR POC ABG pH POC ABG pCO2 POC ABG pO2 Potassium Chloride Carbon Dioxide BUN Creatinine Glucose POC Glucose 246 H 253 H Lactic Acid Calcium Total Bilirubin AST ALT Lactate Dehydrogenase Total Creatine Kinase CK-MB (CK-2) Troponin T Total Protein Albumin Cholesterol LDL Cholesterol Direct HDL Cholesterol Urine WBC (Auto) Crossmatch See Detail 03/18/19 03/18/19 03/18/19 00:06 04:49 05:43 WBC RBC Hgb Hct MCV MCHC RDW Plt Count [place] # Seg Neuts % (Manual) Lymphocytes % (Manual) Monocytes % (Manual) Nucleated RBC % Seg Neutrophils # Seg Neutrophils # Man Lymphocytes # (Manual) Monocytes # (Manual) INR POC ABG pH 7.569 H POC ABG pCO2 30.6 L POC ABG pO2 Potassium Chloride Carbon Dioxide BUN Creatinine Glucose POC Glucose 233 H 310 H Lactic Acid Calcium Total Bilirubin AST ALT Lactate Dehydrogenase Total Creatine Kinase CK-MB (CK-2) Troponin T Total Protein Albumin Cholesterol LDL Cholesterol Direct HDL Cholesterol Urine WBC (Auto) Crossmatch 03/18/19 03/18/19 03/18/19 05:45 12:09 17:43 WBC 28.3 H RBC 2.50 L Hgb 8.1 L Hct 23.4 L MCV MCHC 35 H RDW 17.7 H Plt Count 36 L [place] # Seg Neuts % (Manual) 0 L Lymphocytes % (Manual) 4.0 L Monocytes % (Manual) Nucleated RBC % 1.0 H Seg Neutrophils # Seg Neutrophils # Man 0.0 L Lymphocytes # (Manual) 1.1 L Monocytes # (Manual) 1.4 H INR POC ABG pH POC ABG pCO2 POC ABG pO2 Potassium Chloride Carbon Dioxide BUN Creatinine Glucose POC Glucose 258 H 252 H Lactic Acid Calcium Total Bilirubin AST ALT Lactate Dehydrogenase Total Creatine Kinase CK-MB (CK-2) Troponin T Total Protein Albumin Cholesterol LDL Cholesterol Direct HDL Cholesterol Urine WBC (Auto) Crossmatch 03/19/19 03/19/19 03/19/19 00:04 06:15 06:15 WBC RBC Hgb Hct MCV MCHC RDW Plt Count [place] # Seg Neuts % (Manual) Lymphocytes % (Manual) Monocytes % (Manual) Nucleated RBC % Seg Neutrophils # Seg Neutrophils # Man Lymphocytes # (Manual) Monocytes # (Manual) INR POC ABG pH POC ABG pCO2 POC ABG pO2 Potassium Chloride 96.7 L Carbon Dioxide BUN 60 H Creatinine 5.4 H Glucose 249 H POC Glucose 215 H Lactic Acid Calcium 7.6 L Total Bilirubin AST ALT Lactate Dehydrogenase 853 H Total Creatine Kinase CK-MB (CK-2) Troponin T Total Protein Albumin Cholesterol LDL Cholesterol Direct HDL Cholesterol Urine WBC (Auto) Crossmatch 03/19/19 03/19/19 03/19/19 06:17 12:51 18:18 WBC RBC Hgb Hct MCV MCHC RDW Plt Count [place] # Seg Neuts % (Manual) Lymphocytes % (Manual) Monocytes % (Manual) Nucleated RBC % Seg Neutrophils # Seg Neutrophils # Man Lymphocytes # (Manual) Monocytes # (Manual) INR POC ABG pH POC ABG pCO2 POC ABG pO2 Potassium Chloride Carbon Dioxide BUN Creatinine Glucose POC Glucose 301 H 278 H 252 H Lactic Acid Calcium Total Bilirubin AST ALT Lactate Dehydrogenase Total Creatine Kinase CK-MB (CK-2) Troponin T Total Protein Albumin Cholesterol LDL Cholesterol Direct HDL Cholesterol Urine WBC (Auto) Crossmatch 03/19/19 03/20/19 03/20/19 23:58 04:45 04:45 WBC 39.9 H RBC 2.51 L Hgb 8.0 L Hct 24.1 L MCV 96 H MCHC RDW 18.2 H Plt Count 51 L [place] # Seg Neuts % (Manual) Lymphocytes % (Manual) Monocytes % (Manual) Nucleated RBC % Seg Neutrophils # Seg Neutrophils # Man Lymphocytes # (Manual) Monocytes # (Manual) INR POC ABG pH POC ABG pCO2 POC ABG pO2 Potassium Chloride Carbon Dioxide BUN 51 H Creatinine 5.1 H Glucose 221 H POC Glucose 233 H Lactic Acid Calcium 7.8 L Total Bilirubin AST ALT Lactate Dehydrogenase Total Creatine Kinase CK-MB (CK-2) Troponin T Total Protein Albumin Cholesterol LDL Cholesterol Direct HDL Cholesterol Urine WBC (Auto) Crossmatch 03/20/19 03/20/19 03/20/19 05:52 11:43 17:48 WBC RBC Hgb Hct MCV MCHC RDW Plt Count [place] # Seg Neuts % (Manual) Lymphocytes % (Manual) Monocytes % (Manual) Nucleated RBC % Seg Neutrophils # Seg Neutrophils # Man Lymphocytes # (Manual) Monocytes # (Manual) INR POC ABG pH POC ABG pCO2 POC ABG pO2 Potassium Chloride Carbon Dioxide BUN Creatinine Glucose POC Glucose 256 H 316 H 286 H Lactic Acid Calcium Total Bilirubin AST ALT Lactate Dehydrogenase Total Creatine Kinase CK-MB (CK-2) Troponin T Total Protein Albumin Cholesterol LDL Cholesterol Direct HDL Cholesterol Urine WBC (Auto) Crossmatch 03/21/19 03/21/19 03/21/19 00:17 06:21 08:00 WBC RBC Hgb Hct MCV MCHC RDW Plt Count [place] # Seg Neuts % (Manual) Lymphocytes % (Manual) Monocytes % (Manual) Nucleated RBC % Seg Neutrophils # Seg Neutrophils # Man Lymphocytes # (Manual) Monocytes # (Manual) INR POC ABG pH POC ABG pCO2 POC ABG pO2 Potassium Chloride Carbon Dioxide BUN Creatinine Glucose POC Glucose 212 H 256 H 285 H Lactic Acid Calcium Total Bilirubin AST ALT Lactate Dehydrogenase Total Creatine Kinase CK-MB (CK-2) Troponin T Total Protein Albumin Cholesterol LDL Cholesterol Direct HDL Cholesterol Urine WBC (Auto) Crossmatch 03/21/19 11:15 WBC RBC Hgb Hct MCV MCHC RDW Plt Count [place] # Seg Neuts % (Manual) Lymphocytes % (Manual) Monocytes % (Manual) Nucleated RBC % Seg Neutrophils # Seg Neutrophils # Man Lymphocytes # (Manual) Monocytes # (Manual) INR POC ABG pH POC ABG pCO2 POC ABG pO2 Potassium Chloride Carbon Dioxide BUN Creatinine Glucose POC Glucose 255 H Lactic Acid Calcium Total Bilirubin AST ALT Lactate Dehydrogenase Total Creatine Kinase CK-MB (CK-2) Troponin T Total Protein Albumin Cholesterol LDL Cholesterol Direct HDL Cholesterol Urine WBC (Auto) Crossmatch
--- NOTE | 2019-03-21 13:54 | Electroencephalogram Report ---
Electroencephalogram EEG Date of exam: 03/21/19 Description: The waking background shows an appropriate organization with well-defined anterior posterior voltage and frequency gradients. Posteriorly, there is a well-developed alpha rhythm of [ ] Hz which is symmetrical and bilaterally reactive. Anteriorly, there is a pattern of lower voltage and slightly irregular theta and beta range frequencies. During drowsiness, there is attenuation of the background rhythms. The sleep background shows normal organization with well-formed sleep spindles and vertex waves which are synchronous and symmetrical. Throughout, the recording there are no epileptiform abnormalities, focal or lateralizing features, or significant interhemispheric findings. Interpretation: there is only mild slowing no epileptiform activity... full report to follow
[2019-03-21] MEDS: ROCEPHIN/NS 2 GM/100 ML 2 GM/100 ML BAG IV SCH ×2 (13:59→22:27)
[2019-03-22] MEDS: PROVENTIL IH SCH ×4 (00:35→23:37)
[2019-03-22] MEDS: TYLENOL PO PRN ×3 (06:17→23:43)
[2019-03-22] MEDS: SUBLIMAZE IV PRN ×2 (06:17→07:40)
[2019-03-22] MEDS: HumaLOG SUB-Q SCH ×4 (06:49→18:11)
--- NOTE | 2019-03-22 07:11 | Hem/Onc Progress Note ---
Assessment and Plan 1. Anemia, leukopenia, thrombocytopenia. Peripheral smear mentions blasts. Flow - leukemia - verbal infor dr mai 2. CK is elevated, - LDH. - uric acid. As per the information available; 1. History of diabetes. 2. History of hypertension. 3. Coronary artery disease. 4. History of dental pain recently. 5. The patient had a cardiac arrest, status post cardiopulmonary resuscitation. 6. The patient is intubated. 7. Pericardial effusion. 8. Neurology note mentions coma. We will follow the patient during inpatient stay. flow cytometry result - verbal info Dr Mai - AML?? - BMBx for subtyping. pt has poor Performance status - hospice an option d/w daughter - his [employer] status will help us decide - Patient Problems (1) Leukocytosis Current Visit: Yes Status: Acute Subjective Date of service: 03/22/19 Principal diagnosis: leukemia Interval history: on vebt Objective - Exam Narrative Exam: Pain - pt non verbal General appearance intubated Performance status needs total care Eyes - no icterus ENT intubated LNs cervical not palpable Neck - not able to evalute fully Respiratory Normal Breath sounds - decreased air entry CVS S1 S2 + Extremities normal temperature General GI Soft Rectal deferred male - deferred Skin warm Musculoskeletal not moving Neurologically non verbal - on vent - Constitutional Vitals: Last Vital Signs Temp 100.9 F H 03/22/19 03:18 Pulse 99 H 03/22/19 06:31 Resp 37 H 03/22/19 06:31 BP 91/36 03/22/19 06:31 Pulse Ox 96 03/22/19 06:31 - Labs Lab Results: Laboratory Results - last 24 hr 03/21/19 03/21/19 03/21/19 06:21 08:00 11:15 POC Glucose 256 H 285 H 255 H 03/21/19 03/21/19 03/22/19 17:50 23:27 05:43 POC Glucose 263 H 202 H 254 H Medications & Allergies - Medications Allergies/Adverse Reactions: Allergies No Known Allergies Allergy (Verified 03/10/19 17:37) Home Medications: Home Medications Medication Instructions Recorded Confirmed Last Taken Type Allopurinol [Zyloprim] 300 mg PO DAILY 03/10/19 03/10/19 Unknown History Aspirin [Adult Aspirin] 81 mg PO DAILY 03/10/19 03/10/19 Unknown History Atorvastatin [Lipitor Tab] 80 mg PO DAILY 03/10/19 03/10/19 Unknown History Carvedilol [Coreg] 12.5 mg PO BID 03/10/19 03/10/19 Unknown History Clopidogrel [Plavix] 75 mg PO DAILY 03/10/19 03/10/19 Unknown History Gabapentin [Neurontin] 300 mg PO BID 03/10/19 03/10/19 Unknown History Insulin Lispro Protamin/Lispro 33 unit SQ BID 03/10/19 03/10/19 Unknown History [Humalog Mix 75-25 Vial] Lisinopril [Zestril TAB] 10 mg PO DAILY 03/10/19 03/10/19 Unknown History Pantoprazole [Protonix] 40 mg PO DAILY 03/10/19 03/10/19 Unknown History Sitagliptin Phosphate [Januvia] 50 mg PO DAILY 03/10/19 03/10/19 Unknown History Active Medications: Generic Name Dose Route Start Last Admin Trade Name Freq PRN Reason Stop Dose Admin Acetaminophen 650 mg 03/11/19 00:40 03/22/19 06:17 Tylenol PO 650 mg Q4H PRN Administration Pain MILD(1-3)/Fever >100.5/[place] Acetaminophen 650 mg 03/11/19 00:40 03/12/19 04:53 Tylenol [place] 650 mg Q4H PRN Administration Pain MILD(1-3)/Fever >100.5/[place] Albumin Human 12.5 gm 03/13/19 09:29 Alburx 25% (Albumin) IV DUKE PRN Hypotension Albuterol 2.5 mg 03/17/19 16:00 03/22/19 00:35 Proventil IH 2.5 mg Q8HRT ROXANNE Administration Lipase/Protease/Amylase 1 each 03/15/19 13:21 Pancrenydia Manzo 10,500 Unit FEEDTUBE PRN PRN For Clogged Feeding Tube Dextrose 50 ml 03/11/19 00:44 D50w (25gm) Syringe IV PRN PRN Hypoglycemia Fentanyl 50 mcg 03/11/19 07:50 03/22/19 06:17 Sublimaze IV 50 mcg Q10MIN PRN Administration ANALGESIA Hydrophilic Ointment 1 applic 03/10/19 19:50 Vaseline Lip Therapy TP Q2HR PRN Dry Lips Propofol 1,000 mg in 100 mls @ 4.082 mls/hr 03/10/19 20:00 03/11/19 14:30 Diprivan 10 Mg/Ml IV Infused TITR ROXANNE Titration Protocol 5 MCG/KG/MIN Norepinephrine 4 mg in 250 mls @ 7.5 mls/hr 03/10/19 21:00 03/21/19 14:05 Levophed Drip 4 Mg/Ns 250 Ml IV 0 mcg/min TITR ROXANNE 0 mls/hr Titration Protocol 2 MCG/MIN Fentanyl Citrate 2,000 mcg in 100 mls @ 6.804 mls/hr 03/11/19 08:00 03/20/19 09:05 Fentanyl Drip Premix IV 0 mcg/kg/hr TITR ROXANNE 0 mls/hr Titration Protocol 1 MCG/KG/HR Ceftriaxone Sodium 2 gm in 100 mls @ 200 mls/hr 03/11/19 13:00 03/22/19 00:00 Rocephin/Ns 2 Gm/100 Ml IV Infused Q12HR ROXANNE Infusion Protocol Sodium Chloride 100 mls @ 999 mls/hr 03/15/19 08:11 Nacl 0.9% IV DUKE PRN Hypotension Insulin Glargine 40 units 03/19/19 08:00 03/21/19 08:43 Lantus SUB-Q 40 units QAMDIAB ROXANNE Administration Insulin Human Lispro 0 unit 03/11/19 06:00 03/22/19 06:49 Humalog SUB-Q 6 unit Q6HR ROXANNE Administration Protocol Lansoprazole 30 mg 03/18/19 10:00 03/21/19 09:50 Prevacid Solutab FEEDTUBE 30 mg QDAY ROXANNE Administration Midodrine 10 mg 03/19/19 16:00 03/21/19 16:38 Proamatine PO 10 mg TID@0800,1200,1600 [facility] Administration Multi-Ingred Cream/Lotion/Oil/Oint 1 applic 03/10/19 19:50 Artificial Tears Ophth Oint OU Q4HR PRN Dry Eye(s) Ondansetron HCl 4 mg 03/11/19 00:40 03/19/19 21:53 Zofran IV 4 mg Q8H PRN Administration Nausea And Vomiting Simple Syrup 15 ml 03/15/19 13:21 Simple Syrup FEEDTUBE PRN PRN Hypoglycemia Simple Syrup 30 ml 03/15/19 13:21 Simple Syrup FEEDTUBE PRN PRN Hypoglycemia Sodium Bicarbonate 325 mg 03/15/19 13:21 Sodium Bicarbonate FEEDTUBE PRN PRN For Clogged Feeding Tube Sodium Chloride 10 ml 03/11/19 10:00 03/21/19 22:27 Sodium Chloride Flush Syringe 10 Ml IV 10 ml BID ROXANNE Administration Sodium Chloride 10 ml 03/11/19 00:40 Sodium Chloride Flush Syringe 10 Ml IV PRN PRN LINE FLUSH
[2019-03-22] MEDS: LANTUS SUB-Q SCH (09:04)
[2019-03-22] MEDS: PREVACID SOLUTAB FEEDTUBE SCH (09:05)
[2019-03-22] MEDS: ROCEPHIN/NS 2 GM/100 ML 2 GM/100 ML BAG IV SCH ×2 (09:05→23:43)
[2019-03-22] MEDS: PROAMATINE PO SCH ×3 (09:06→16:48)
--- NOTE | 2019-03-22 10:02 | Progress Note ---
Subjective Date of service: 03/22/19 Principal diagnosis: leukemia Interval history: wanted to address the slowing on the EEG this to me is more feature of the original code that occured ion the ED this is not like renal triphasic or myoclonic encephalopathy from metabolic fcators to be clear on cuasation of Grade IV encephalopathy.. this slowing is c/w semi=coma state from arrest Objective - Vital Sign Vital Signs - 12hr 03/21/19 03/21/19 03/21/19 22:30 23:00 23:01 Temperature Pulse Rate 100 H 95 H 94 H Pulse Rate [ Anterior Bilateral Throughout] Pulse Rate [ From Monitor] Respiratory 38 H 34 H 35 H Rate Respiratory Rate [Anterior Bilateral Throughout] Blood Pressure 100/43 110/62 110/62 O2 Sat by Pulse 95 96 97 Oximetry 03/21/19 03/21/19 03/22/19 23:10 23:31 00:00 Temperature 100.2 F H Pulse Rate 94 H 97 H Pulse Rate [ Anterior Bilateral Throughout] Pulse Rate [ 102 H From Monitor] Respiratory 33 H 36 H Rate Respiratory Rate [Anterior Bilateral Throughout] Blood Pressure 120/61 93/57 O2 Sat by Pulse 98 96 Oximetry 03/22/19 03/22/19 03/22/19 00:23 00:30 00:39 Temperature Pulse Rate 98 H 98 H Pulse Rate [ 100 H Anterior Bilateral Throughout] Pulse Rate [ From Monitor] Respiratory 36 H Rate Respiratory 33 H Rate [Anterior Bilateral Throughout] Blood Pressure 129/39 104/45 O2 Sat by Pulse 95 94 Oximetry 03/22/19 03/22/19 03/22/19 00:45 01:00 01:31 Temperature Pulse Rate 101 H 103 H Pulse Rate [ 100 H Anterior Bilateral Throughout] Pulse Rate [ From Monitor] Respiratory 36 H 36 H Rate Respiratory 33 H Rate [Anterior Bilateral Throughout] Blood Pressure 132/31 148/43 O2 Sat by Pulse 89 93 Oximetry 03/22/19 03/22/19 03/22/19 02:01 02:31 03:01 Temperature Pulse Rate 101 H 103 H 103 H Pulse Rate [ Anterior Bilateral Throughout] Pulse Rate [ From Monitor] Respiratory 37 H 38 H 38 H Rate Respiratory Rate [Anterior Bilateral Throughout] Blood Pressure 167/29 112/26 109/39 O2 Sat by Pulse 97 96 97 Oximetry 03/22/19 03/22/19 03/22/19 03:18 03:31 04:00 Temperature 100.9 F H Pulse Rate 105 H 106 H Pulse Rate [ Anterior Bilateral Throughout] Pulse Rate [ 104 H From Monitor] Respiratory 39 H Rate Respiratory Rate [Anterior Bilateral Throughout] Blood Pressure 103/70 O2 Sat by Pulse 59 L 96 Oximetry 03/22/19 03/22/19 03/22/19 04:01 04:26 04:31 Temperature Pulse Rate 105 H 104 H 105 H Pulse Rate [ Anterior Bilateral Throughout] Pulse Rate [ From Monitor] Respiratory 39 H 40 H Rate Respiratory Rate [Anterior Bilateral Throughout] Blood Pressure 103/70 86/34 118/47 O2 Sat by Pulse 96 97 96 Oximetry 03/22/19 03/22/19 03/22/19 05:01 05:31 06:01 Temperature Pulse Rate 105 H 106 H 108 H Pulse Rate [ Anterior Bilateral Throughout] Pulse Rate [ From Monitor] Respiratory 41 H 40 H 42 H Rate Respiratory Rate [Anterior Bilateral Throughout] Blood Pressure 92/44 101/30 61/33 O2 Sat by Pulse 96 96 95 Oximetry 03/22/19 03/22/19 03/22/19 06:31 07:00 07:30 Temperature Pulse Rate 99 H 109 H 117 H Pulse Rate [ Anterior Bilateral Throughout] Pulse Rate [ From Monitor] Respiratory 37 H 44 H 47 H Rate Respiratory Rate [Anterior Bilateral Throughout] Blood Pressure 91/36 114/48 129/66 O2 Sat by Pulse 96 96 95 Oximetry 03/22/19 03/22/19 03/22/19 07:37 07:38 08:00 Temperature Pulse Rate 113 H 108 H Pulse Rate [ 96 H Anterior Bilateral Throughout] Pulse Rate [ From Monitor] Respiratory 33 H Rate Respiratory 42 H Rate [Anterior Bilateral Throughout] Blood Pressure 143/51 144/48 O2 Sat by Pulse 96 95 Oximetry 03/22/19 03/22/19 08:30 09:00 Temperature Pulse Rate 108 H 109 H Pulse Rate [ Anterior Bilateral Throughout] Pulse Rate [ From Monitor] Respiratory 31 H 25 H Rate Respiratory Rate [Anterior Bilateral Throughout] Blood Pressure 146/41 124/62 O2 Sat by Pulse 92 96 Oximetry - Laboratory Findings CBC and BMP: 03/20/19 04:45 03/20/19 04:45 Abnormal Lab Findings: Abnormal Labs 03/10/19 03/10/19 03/10/19 17:57 17:57 17:57 WBC 1.2 L* RBC 2.46 L Hgb 7.9 L Hct 23.2 L MCV MCHC RDW 18.2 H Plt Count 47 L [place] # 0.9 H Seg Neuts % (Manual) 6.0 L Lymphocytes % (Manual) 74.0 H Monocytes % (Manual) 20.0 H Nucleated RBC % Seg Neutrophils # 0.1 L Seg Neutrophils # Man 0.1 L Lymphocytes # (Manual) 0.9 L Monocytes # (Manual) INR POC ABG pH POC ABG pCO2 POC ABG pO2 Potassium Chloride Carbon Dioxide BUN 46 H Creatinine 2.9 H Glucose 200 H POC Glucose Lactic Acid 2.50 H* Calcium 7.6 L Total Bilirubin AST ALT Lactate Dehydrogenase Total Creatine Kinase CK-MB (CK-2) Troponin T Total Protein Albumin 3.2 L Cholesterol LDL Cholesterol Direct HDL Cholesterol Urine WBC (Auto) Crossmatch 03/10/19 03/10/19 03/10/19 17:57 18:01 18:52 WBC RBC Hgb Hct MCV MCHC RDW Plt Count [place] # Seg Neuts % (Manual) Lymphocytes % (Manual) Monocytes % (Manual) Nucleated RBC % Seg Neutrophils # Seg Neutrophils # Man Lymphocytes # (Manual) Monocytes # (Manual) INR 1.15 H POC ABG pH POC ABG pCO2 POC ABG pO2 Potassium Chloride Carbon Dioxide BUN Creatinine Glucose POC Glucose 234 H Lactic Acid Calcium Total Bilirubin AST ALT Lactate Dehydrogenase Total Creatine Kinase CK-MB (CK-2) Troponin T Total Protein Albumin Cholesterol LDL Cholesterol Direct HDL Cholesterol Urine WBC (Auto) Crossmatch See Detail 03/10/19 03/10/19 03/10/19 19:16 21:32 23:06 WBC RBC Hgb Hct MCV MCHC RDW Plt Count [place] # Seg Neuts % (Manual) Lymphocytes % (Manual) Monocytes % (Manual) Nucleated RBC % Seg Neutrophils # Seg Neutrophils # Man Lymphocytes # (Manual) Monocytes # (Manual) INR POC ABG pH POC ABG pCO2 POC ABG pO2 315 H Potassium Chloride Carbon Dioxide BUN Creatinine Glucose POC Glucose Lactic Acid 2.80 H* Calcium Total Bilirubin AST ALT Lactate Dehydrogenase Total Creatine Kinase CK-MB (CK-2) Troponin T Total Protein Albumin Cholesterol LDL Cholesterol Direct HDL Cholesterol Urine WBC (Auto) 24.0 H Crossmatch 03/10/19 03/11/19 03/11/19 23:29 00:50 05:01 WBC RBC 2.29 L Hgb 7.3 L Hct 22.2 L MCV 97 H MCHC RDW 18.2 H Plt Count 40 L [place] # Seg Neuts % (Manual) 8.0 L Lymphocytes % (Manual) 67.0 H Monocytes % (Manual) 24.0 H Nucleated RBC % 5.0 H Seg Neutrophils # Seg Neutrophils # Man 0.4 L Lymphocytes # (Manual) Monocytes # (Manual) 1.2 H INR POC ABG pH POC ABG pCO2 POC ABG pO2 Potassium Chloride Carbon Dioxide BUN Creatinine Glucose POC Glucose 237 H Lactic Acid Calcium Total Bilirubin AST ALT Lactate Dehydrogenase Total Creatine Kinase 513 H CK-MB (CK-2) Troponin T 0.075 H Total Protein Albumin Cholesterol < 4 L LDL Cholesterol Direct 4 L HDL Cholesterol < 3 L Urine WBC (Auto) Crossmatch 03/11/19 03/11/19 03/11/19 05:01 06:06 06:07 WBC RBC Hgb Hct MCV MCHC RDW Plt Count [place] # Seg Neuts % (Manual) Lymphocytes % (Manual) Monocytes % (Manual) Nucleated RBC % Seg Neutrophils # Seg Neutrophils # Man Lymphocytes # (Manual) Monocytes # (Manual) INR POC ABG pH POC ABG pCO2 32.8 L POC ABG pO2 Potassium 5.3 H Chloride Carbon Dioxide 19 L BUN 49 H Creatinine 3.7 H Glucose 203 H POC Glucose Lactic Acid Calcium 7.1 L Total Bilirubin AST ALT Lactate Dehydrogenase Total Creatine Kinase 1156 H CK-MB (CK-2) 4.6 H Troponin T 0.077 H Total Protein Albumin Cholesterol LDL Cholesterol Direct HDL Cholesterol Urine WBC (Auto) Crossmatch 03/11/19 03/11/19 03/11/19 06:35 13:07 18:36 WBC RBC Hgb Hct MCV MCHC RDW Plt Count [place] # Seg Neuts % (Manual) Lymphocytes % (Manual) Monocytes % (Manual) Nucleated RBC % Seg Neutrophils # Seg Neutrophils # Man Lymphocytes # (Manual) Monocytes # (Manual) INR POC ABG pH POC ABG pCO2 POC ABG pO2 Potassium Chloride Carbon Dioxide BUN Creatinine Glucose POC Glucose 209 H 185 H 126 H Lactic Acid Calcium Total Bilirubin AST ALT Lactate Dehydrogenase Total Creatine Kinase CK-MB (CK-2) Troponin T Total Protein Albumin Cholesterol LDL Cholesterol Direct HDL Cholesterol Urine WBC (Auto) Crossmatch 03/11/19 03/12/19 03/12/19 23:45 04:25 05:06 WBC RBC 2.24 L Hgb 7.2 L Hct 21.9 L MCV 98 H MCHC RDW 18.3 H Plt Count 38 L [place] # Seg Neuts % (Manual) 4.0 L Lymphocytes % (Manual) Monocytes % (Manual) 69.0 H Nucleated RBC % Seg Neutrophils # Seg Neutrophils # Man 0.3 L Lymphocytes # (Manual) Monocytes # (Manual) 4.9 H INR POC ABG pH 7.320 L POC ABG pCO2 POC ABG pO2 Potassium Chloride Carbon Dioxide BUN Creatinine Glucose POC Glucose 137 H Lactic Acid Calcium Total Bilirubin AST ALT Lactate Dehydrogenase Total Creatine Kinase CK-MB (CK-2) Troponin T Total Protein Albumin Cholesterol LDL Cholesterol Direct HDL Cholesterol Urine WBC (Auto) Crossmatch 03/12/19 03/12/19 03/12/19 05:06 05:57 07:19 WBC RBC Hgb Hct MCV MCHC RDW Plt Count [place] # Seg Neuts % (Manual) Lymphocytes % (Manual) Monocytes % (Manual) Nucleated RBC % Seg Neutrophils # Seg Neutrophils # Man Lymphocytes # (Manual) Monocytes # (Manual) INR POC ABG pH POC ABG pCO2 POC ABG pO2 Potassium 6.6 H* D 6.6 H* Chloride Carbon Dioxide 17 L BUN 66 H Creatinine 5.6 H D Glucose 149 H POC Glucose 165 H Lactic Acid Calcium 6.5 L Total Bilirubin 1.90 H AST 782 H ALT 382 H Lactate Dehydrogenase Total Creatine Kinase CK-MB (CK-2) Troponin T Total Protein 5.7 L Albumin 2.7 L Cholesterol LDL Cholesterol Direct HDL Cholesterol Urine WBC (Auto) Crossmatch 03/12/19 03/12/19 03/12/19 15:24 18:55 23:45 WBC RBC Hgb Hct MCV MCHC RDW Plt Count [place] # Seg Neuts % (Manual) Lymphocytes % (Manual) Monocytes % (Manual) Nucleated RBC % Seg Neutrophils # Seg Neutrophils # Man Lymphocytes # (Manual) Monocytes # (Manual) INR POC ABG pH POC ABG pCO2 POC ABG pO2 Potassium Chloride Carbon Dioxide BUN Creatinine Glucose POC Glucose 167 H 212 H 197 H Lactic Acid Calcium Total Bilirubin AST ALT Lactate Dehydrogenase Total Creatine Kinase CK-MB (CK-2) Troponin T Total Protein Albumin Cholesterol LDL Cholesterol Direct HDL Cholesterol Urine WBC (Auto) Crossmatch 03/13/19 03/13/19 03/13/19 05:37 09:11 09:11 WBC RBC 1.99 L Hgb 6.4 L Hct 18.7 L* MCV MCHC RDW 18.5 H Plt Count 36 L [place] # Seg Neuts % (Manual) Lymphocytes % (Manual) Monocytes % (Manual) Nucleated RBC % Seg Neutrophils # Seg Neutrophils # Man Lymphocytes # (Manual) Monocytes # (Manual) INR POC ABG pH POC ABG pCO2 POC ABG pO2 Potassium Chloride Carbon Dioxide BUN 52 H Creatinine 5.5 H Glucose 235 H POC Glucose 250 H Lactic Acid Calcium 6.2 L Total Bilirubin AST ALT Lactate Dehydrogenase Total Creatine Kinase CK-MB (CK-2) Troponin T Total Protein Albumin Cholesterol LDL Cholesterol Direct HDL Cholesterol Urine WBC (Auto) Crossmatch 03/13/19 03/13/19 03/13/19 11:06 12:38 18:11 WBC RBC 2.07 L Hgb 6.6 L Hct 19.6 L* MCV 95 H MCHC RDW 18.5 H Plt Count 33 L [place] # Seg Neuts % (Manual) Lymphocytes % (Manual) Monocytes % (Manual) Nucleated RBC % Seg Neutrophils # Seg Neutrophils # Man Lymphocytes # (Manual) Monocytes # (Manual) INR POC ABG pH POC ABG pCO2 POC ABG pO2 Potassium Chloride Carbon Dioxide BUN Creatinine Glucose POC Glucose 268 H 255 H Lactic Acid Calcium Total Bilirubin AST ALT Lactate Dehydrogenase Total Creatine Kinase CK-MB (CK-2) Troponin T Total Protein Albumin Cholesterol LDL Cholesterol Direct HDL Cholesterol Urine WBC (Auto) Crossmatch 03/13/19 03/13/19 03/13/19 19:12 20:58 23:49 WBC RBC Hgb Hct MCV MCHC RDW Plt Count [place] # Seg Neuts % (Manual) Lymphocytes % (Manual) Monocytes % (Manual) Nucleated RBC % Seg Neutrophils # Seg Neutrophils # Man Lymphocytes # (Manual) Monocytes # (Manual) INR POC ABG pH 7.466 H POC ABG pCO2 POC ABG pO2 Potassium Chloride Carbon Dioxide BUN Creatinine Glucose POC Glucose 289 H Lactic Acid Calcium Total Bilirubin AST ALT Lactate Dehydrogenase Total Creatine Kinase CK-MB (CK-2) Troponin T Total Protein Albumin Cholesterol LDL Cholesterol Direct HDL Cholesterol Urine WBC (Auto) Crossmatch See Detail 03/14/19 03/14/19 03/14/19 05:51 11:39 13:43 WBC 14.0 H RBC 2.78 L Hgb 8.9 L Hct 26.0 L D MCV MCHC RDW 17.9 H Plt Count 42 L [place] # Seg Neuts % (Manual) 2.0 L Lymphocytes % (Manual) 84.0 H Monocytes % (Manual) 13.0 H Nucleated RBC % Seg Neutrophils # Seg Neutrophils # Man 0.3 L Lymphocytes # (Manual) 11.8 H Monocytes # (Manual) 1.8 H INR POC ABG pH POC ABG pCO2 POC ABG pO2 Potassium Chloride Carbon Dioxide BUN Creatinine Glucose POC Glucose 305 H 283 H Lactic Acid Calcium Total Bilirubin AST ALT Lactate Dehydrogenase Total Creatine Kinase CK-MB (CK-2) Troponin T Total Protein Albumin Cholesterol LDL Cholesterol Direct HDL Cholesterol Urine WBC (Auto) Crossmatch 03/14/19 03/15/19 03/15/19 18:12 00:43 04:24 WBC RBC Hgb Hct MCV MCHC RDW Plt Count [place] # Seg Neuts % (Manual) Lymphocytes % (Manual) Monocytes % (Manual) Nucleated RBC % Seg Neutrophils # Seg Neutrophils # Man Lymphocytes # (Manual) Monocytes # (Manual) INR POC ABG pH 7.497 H POC ABG pCO2 34.0 L POC ABG pO2 Potassium Chloride Carbon Dioxide BUN Creatinine Glucose POC Glucose 313 H 236 H Lactic Acid Calcium Total Bilirubin AST ALT Lactate Dehydrogenase Total Creatine Kinase CK-MB (CK-2) Troponin T Total Protein Albumin Cholesterol LDL Cholesterol Direct HDL Cholesterol Urine WBC (Auto) Crossmatch 03/15/19 03/15/19 03/15/19 07:15 07:15 07:24 WBC 16.1 H RBC 2.50 L Hgb 8.1 L Hct 23.4 L MCV MCHC 35 H RDW 18.5 H Plt Count 42 L [place] # Seg Neuts % (Manual) 2.0 L Lymphocytes % (Manual) 41.0 H Monocytes % (Manual) 11.0 H Nucleated RBC % Seg Neutrophils # Seg Neutrophils # Man 0.3 L Lymphocytes # (Manual) 6.6 H Monocytes # (Manual) 1.8 H INR POC ABG pH POC ABG pCO2 POC ABG pO2 Potassium Chloride 96.0 L Carbon Dioxide BUN 47 H Creatinine 5.0 H Glucose 287 H POC Glucose 285 H Lactic Acid Calcium 7.2 L D Total Bilirubin AST 522 H ALT 474 H Lactate Dehydrogenase Total Creatine Kinase CK-MB (CK-2) Troponin T Total Protein 5.7 L Albumin 2.4 L Cholesterol LDL Cholesterol Direct HDL Cholesterol Urine WBC (Auto) Crossmatch 03/15/19 03/15/19 03/15/19 11:18 17:12 23:19 WBC RBC Hgb Hct MCV MCHC RDW Plt Count [place] # Seg Neuts % (Manual) Lymphocytes % (Manual) Monocytes % (Manual) Nucleated RBC % Seg Neutrophils # Seg Neutrophils # Man Lymphocytes # (Manual) Monocytes # (Manual) INR POC ABG pH POC ABG pCO2 POC ABG pO2 Potassium Chloride Carbon Dioxide BUN Creatinine Glucose POC Glucose 287 H 221 H 297 H Lactic Acid Calcium Total Bilirubin AST ALT Lactate Dehydrogenase Total Creatine Kinase CK-MB (CK-2) Troponin T Total Protein Albumin Cholesterol LDL Cholesterol Direct HDL Cholesterol Urine WBC (Auto) Crossmatch 03/16/19 03/16/19 03/16/19 03:49 05:26 11:26 WBC RBC Hgb Hct MCV MCHC RDW Plt Count [place] # Seg Neuts % (Manual) Lymphocytes % (Manual) Monocytes % (Manual) Nucleated RBC % Seg Neutrophils # Seg Neutrophils # Man Lymphocytes # (Manual) Monocytes # (Manual) INR POC ABG pH 7.487 H POC ABG pCO2 34.3 L POC ABG pO2 254 H Potassium Chloride Carbon Dioxide BUN Creatinine Glucose POC Glucose 271 H 298 H Lactic Acid Calcium Total Bilirubin AST ALT Lactate Dehydrogenase Total Creatine Kinase CK-MB (CK-2) Troponin T Total Protein Albumin Cholesterol LDL Cholesterol Direct HDL Cholesterol Urine WBC (Auto) Crossmatch 03/16/19 03/16/19 03/17/19 17:55 23:47 04:08 WBC RBC Hgb Hct MCV MCHC RDW Plt Count [place] # Seg Neuts % (Manual) Lymphocytes % (Manual) Monocytes % (Manual) Nucleated RBC % Seg Neutrophils # Seg Neutrophils # Man Lymphocytes # (Manual) Monocytes # (Manual) INR POC ABG pH 7.491 H POC ABG pCO2 31.1 L POC ABG pO2 70 L Potassium Chloride Carbon Dioxide BUN Creatinine Glucose POC Glucose 304 H 260 H Lactic Acid Calcium Total Bilirubin AST ALT Lactate Dehydrogenase Total Creatine Kinase CK-MB (CK-2) Troponin T Total Protein Albumin Cholesterol LDL Cholesterol Direct HDL Cholesterol Urine WBC (Auto) Crossmatch 03/17/19 03/17/19 03/17/19 05:30 05:30 05:55 WBC 18.8 H RBC 2.13 L Hgb 6.9 L Hct 20.0 L MCV MCHC 35 H RDW 18.4 H Plt Count 34 L [place] # Seg Neuts % (Manual) Lymphocytes % (Manual) Monocytes % (Manual) Nucleated RBC % Seg Neutrophils # Seg Neutrophils # Man Lymphocytes # (Manual) Monocytes # (Manual) INR POC ABG pH POC ABG pCO2 POC ABG pO2 Potassium 3.5 L Chloride 96.6 L Carbon Dioxide BUN 86 H Creatinine 7.4 H Glucose 222 H POC Glucose 218 H Lactic Acid Calcium 6.9 L Total Bilirubin AST ALT Lactate Dehydrogenase Total Creatine Kinase CK-MB (CK-2) Troponin T Total Protein Albumin Cholesterol LDL Cholesterol Direct HDL Cholesterol Urine WBC (Auto) Crossmatch 03/17/19 03/17/19 03/17/19 12:09 13:06 17:37 WBC RBC Hgb Hct MCV MCHC RDW Plt Count [place] # Seg Neuts % (Manual) Lymphocytes % (Manual) Monocytes % (Manual) Nucleated RBC % Seg Neutrophils # Seg Neutrophils # Man Lymphocytes # (Manual) Monocytes # (Manual) INR POC ABG pH POC ABG pCO2 POC ABG pO2 Potassium Chloride Carbon Dioxide BUN Creatinine Glucose POC Glucose 246 H 253 H Lactic Acid Calcium Total Bilirubin AST ALT Lactate Dehydrogenase Total Creatine Kinase CK-MB (CK-2) Troponin T Total Protein Albumin Cholesterol LDL Cholesterol Direct HDL Cholesterol Urine WBC (Auto) Crossmatch See Detail 03/18/19 03/18/19 03/18/19 00:06 04:49 05:43 WBC RBC Hgb Hct MCV MCHC RDW Plt Count [place] # Seg Neuts % (Manual) Lymphocytes % (Manual) Monocytes % (Manual) Nucleated RBC % Seg Neutrophils # Seg Neutrophils # Man Lymphocytes # (Manual) Monocytes # (Manual) INR POC ABG pH 7.569 H POC ABG pCO2 30.6 L POC ABG pO2 Potassium Chloride Carbon Dioxide BUN Creatinine Glucose POC Glucose 233 H 310 H Lactic Acid Calcium Total Bilirubin AST ALT Lactate Dehydrogenase Total Creatine Kinase CK-MB (CK-2) Troponin T Total Protein Albumin Cholesterol LDL Cholesterol Direct HDL Cholesterol Urine WBC (Auto) Crossmatch 03/18/19 03/18/19 03/18/19 05:45 12:09 17:43 WBC 28.3 H RBC 2.50 L Hgb 8.1 L Hct 23.4 L MCV MCHC 35 H RDW 17.7 H Plt Count 36 L [place] # Seg Neuts % (Manual) 0 L Lymphocytes % (Manual) 4.0 L Monocytes % (Manual) Nucleated RBC % 1.0 H Seg Neutrophils # Seg Neutrophils # Man 0.0 L Lymphocytes # (Manual) 1.1 L Monocytes # (Manual) 1.4 H INR POC ABG pH POC ABG pCO2 POC ABG pO2 Potassium Chloride Carbon Dioxide BUN Creatinine Glucose POC Glucose 258 H 252 H Lactic Acid Calcium Total Bilirubin AST ALT Lactate Dehydrogenase Total Creatine Kinase CK-MB (CK-2) Troponin T Total Protein Albumin Cholesterol LDL Cholesterol Direct HDL Cholesterol Urine WBC (Auto) Crossmatch 03/19/19 03/19/19 03/19/19 00:04 06:15 06:15 WBC RBC Hgb Hct MCV MCHC RDW Plt Count [place] # Seg Neuts % (Manual) Lymphocytes % (Manual) Monocytes % (Manual) Nucleated RBC % Seg Neutrophils # Seg Neutrophils # Man Lymphocytes # (Manual) Monocytes # (Manual) INR POC ABG pH POC ABG pCO2 POC ABG pO2 Potassium Chloride 96.7 L Carbon Dioxide BUN 60 H Creatinine 5.4 H Glucose 249 H POC Glucose 215 H Lactic Acid Calcium 7.6 L Total Bilirubin AST ALT Lactate Dehydrogenase 853 H Total Creatine Kinase CK-MB (CK-2) Troponin T Total Protein Albumin Cholesterol LDL Cholesterol Direct HDL Cholesterol Urine WBC (Auto) Crossmatch 03/19/19 03/19/19 03/19/19 06:17 12:51 18:18 WBC RBC Hgb Hct MCV MCHC RDW Plt Count [place] # Seg Neuts % (Manual) Lymphocytes % (Manual) Monocytes % (Manual) Nucleated RBC % Seg Neutrophils # Seg Neutrophils # Man Lymphocytes # (Manual) Monocytes # (Manual) INR POC ABG pH POC ABG pCO2 POC ABG pO2 Potassium Chloride Carbon Dioxide BUN Creatinine Glucose POC Glucose 301 H 278 H 252 H Lactic Acid Calcium Total Bilirubin AST ALT Lactate Dehydrogenase Total Creatine Kinase CK-MB (CK-2) Troponin T Total Protein Albumin Cholesterol LDL Cholesterol Direct HDL Cholesterol Urine WBC (Auto) Crossmatch 03/19/19 03/20/19 03/20/19 23:58 04:45 04:45 WBC 39.9 H RBC 2.51 L Hgb 8.0 L Hct 24.1 L MCV 96 H MCHC RDW 18.2 H Plt Count 51 L [place] # Seg Neuts % (Manual) Lymphocytes % (Manual) Monocytes % (Manual) Nucleated RBC % Seg Neutrophils # Seg Neutrophils # Man Lymphocytes # (Manual) Monocytes # (Manual) INR POC ABG pH POC ABG pCO2 POC ABG pO2 Potassium Chloride Carbon Dioxide BUN 51 H Creatinine 5.1 H Glucose 221 H POC Glucose 233 H Lactic Acid Calcium 7.8 L Total Bilirubin AST ALT Lactate Dehydrogenase Total Creatine Kinase CK-MB (CK-2) Troponin T Total Protein Albumin Cholesterol LDL Cholesterol Direct HDL Cholesterol Urine WBC (Auto) Crossmatch 03/20/19 03/20/19 03/20/19 05:52 11:43 17:48 WBC RBC Hgb Hct MCV MCHC RDW Plt Count [place] # Seg Neuts % (Manual) Lymphocytes % (Manual) Monocytes % (Manual) Nucleated RBC % Seg Neutrophils # Seg Neutrophils # Man Lymphocytes # (Manual) Monocytes # (Manual) INR POC ABG pH POC ABG pCO2 POC ABG pO2 Potassium Chloride Carbon Dioxide BUN Creatinine Glucose POC Glucose 256 H 316 H 286 H Lactic Acid Calcium Total Bilirubin AST ALT Lactate Dehydrogenase Total Creatine Kinase CK-MB (CK-2) Troponin T Total Protein Albumin Cholesterol LDL Cholesterol Direct HDL Cholesterol Urine WBC (Auto) Crossmatch 03/21/19 03/21/19 03/21/19 00:17 06:21 08:00 WBC RBC Hgb Hct MCV MCHC RDW Plt Count [place] # Seg Neuts % (Manual) Lymphocytes % (Manual) Monocytes % (Manual) Nucleated RBC % Seg Neutrophils # Seg Neutrophils # Man Lymphocytes # (Manual) Monocytes # (Manual) INR POC ABG pH POC ABG pCO2 POC ABG pO2 Potassium Chloride Carbon Dioxide BUN Creatinine Glucose POC Glucose 212 H 256 H 285 H Lactic Acid Calcium Total Bilirubin AST ALT Lactate Dehydrogenase Total Creatine Kinase CK-MB (CK-2) Troponin T Total Protein Albumin Cholesterol LDL Cholesterol Direct HDL Cholesterol Urine WBC (Auto) Crossmatch 03/21/19 03/21/19 03/21/19 11:15 17:50 23:27 WBC RBC Hgb Hct MCV MCHC RDW Plt Count [place] # Seg Neuts % (Manual) Lymphocytes % (Manual) Monocytes % (Manual) Nucleated RBC % Seg Neutrophils # Seg Neutrophils # Man Lymphocytes # (Manual) Monocytes # (Manual) INR POC ABG pH POC ABG pCO2 POC ABG pO2 Potassium Chloride Carbon Dioxide BUN Creatinine Glucose POC Glucose 255 H 263 H 202 H Lactic Acid Calcium Total Bilirubin AST ALT Lactate Dehydrogenase Total Creatine Kinase CK-MB (CK-2) Troponin T Total Protein Albumin Cholesterol LDL Cholesterol Direct HDL Cholesterol Urine WBC (Auto) Crossmatch 03/22/19 05:43 WBC RBC Hgb Hct MCV MCHC RDW Plt Count [place] # Seg Neuts % (Manual) Lymphocytes % (Manual) Monocytes % (Manual) Nucleated RBC % Seg Neutrophils # Seg Neutrophils # Man Lymphocytes # (Manual) Monocytes # (Manual) INR POC ABG pH POC ABG pCO2 POC ABG pO2 Potassium Chloride Carbon Dioxide BUN Creatinine Glucose POC Glucose 254 H Lactic Acid Calcium Total Bilirubin AST ALT Lactate Dehydrogenase Total Creatine Kinase CK-MB (CK-2) Troponin T Total Protein Albumin Cholesterol LDL Cholesterol Direct HDL Cholesterol Urine WBC (Auto) Crossmatch
[2019-03-22] MEDS: SODIUM CHLORIDE FLUSH SYRINGE 10 ML IV SCH (10:11)
--- NOTE | 2019-03-22 10:16 | Progress Note ---
Assessment and Plan Assessment and plan: Patient is a 54 yo man with a history of hypertension, DM type 2, CKD 3 and CAD s/p shents who presented to [facility] ED on 03/10/19 with SOB and cough. Dental pain with ?abscess preceded this illness. He had a PEA cardiac arrest in ED, was successfully resucitated, intubated, stated on vasopressor and admitted to ICU. He had whole body jerking in ED, ?seizure activity. * Initial CT chest wo contrast IMPRESSION: Small pericardial effusion ET in satisfactory position. Atelectasis posterior aspects of both lungs. * Initial CT abd/pelvis wo contrast IMPRESSION: Possible mild right colonic wall thickening and trace free fluid in the right paracolic gutter and pelvis may be infectious, inflammatory or ischemic in etiology. No pneumoperitoneum or focal fluid collection to suggest abscess. Mild pericholecystic edema. No calcified gallstones. If there is concern for cholecystitis, consider follow- up ultrasound and/or nuclear medicine hepatobiliary scan. Small pericardial effusion. Coronary and peripheral arterial disease. 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 Pulmonary following Severe Sepsis with Shock: off Vasopressors. ?Dental abscess vs Group A strep. ID following, continues on abx, No evidence of Endocarditis on TTE Multi system Organ failure, poa Acute combined heart failure, poa: Cardiology is following DM type 2 with hyperglycemia-POA: Lantus and adjust sliding scale Insulin severe Anemia- Transfused 1 units on 03/13/19 and 03/17/19, total of 2 units, monitor cbc closely Thrombocytopenia ?DIC secondary to underlying condition: Hold Antiplatelets Pericardial effusion: Cardiology following ARF/CKD 3 due to ATN, poa with suspected progression to ESRD: on HD, Nephrology is following Morbid obesity, bmi 55.9: Counselling when more awake Severe Protein calorie malnutrition, poa: [employer] consult Acute Metabolic Encephalopathy: Neurology consulted ?ischemic brain injury Diarrhea-C,DIFF RULED OUT- fecal tube in place SHOCK LIVER-HEPATIC FAILURE-improve bp and follow CAD by hx-POA Sacral Pressure ulcer, poa- Wound care consulted, input noted poor prognosis d/w daughter Macrina and sister Nano at bedside on 03/20/19 d/w Dr. Cleaning on 03/21/19 peripheral flow cytometry suggestive of AML via verbal report from Dr. Hatch, Dr. Cleaning will discuss with daughter CCT 31 minutes History Interval history: Patient was seen and examined. Follow-up on current diagnosis Respiratory failure. No overnight events reported to me. Imaging, nursing note, chart, labs and old chart reviewed. It appears he has emesis overnight. Hospitalist Physical - Physical exam Narrative exam: Gen: critically ill appearing, bmi 55.9 HEENT: NCAT, EOMI, PERRL, OP Clear Neck: supple, no adenopathy, no thyromegaly, no JVD CVS/Heart: RRR, normal S1S2, pulses present bilaterally Chest/Lungs: diminished bs bilateral Symmetrical chest expansion, ok air entry bilaterally GI/Abdomen: soft, NTND, good bowel sounds, no guarding or rebound /Bladder: no suprapubic tenderness, no CVA or paraspinal tenderness Extermity/Skin: edema MSK: sedated Neuro: sedated Psych: sedated - Constitutional Vitals: Temp Pulse Resp BP Pulse Ox 100.9 F H 109 H 25 H 124/62 96 03/22/19 03:18 03/22/19 09:00 03/22/19 09:00 03/22/19 09:00 03/22/19 09:00 General appearance: Present: obese Results - Labs CBC & Chem 7: 03/20/19 04:45 03/20/19 04:45 Labs: Laboratory Last Values WBC 39.9 K/mm3 (4.5-11.0) H 03/20/19 04:45 RBC 2.51 M/mm3 (3.65-5.03) L 03/20/19 04:45 Hgb 8.0 gm/dl (11.8-15.2) L 03/20/19 04:45 Hct 24.1 % (35.5-45.6) L 03/20/19 04:45 MCV 96 fl (84-94) H 03/20/19 04:45 MCH 32 pg (28-32) 03/20/19 04:45 MCHC 33 % (32-34) 03/20/19 04:45 RDW 18.2 % (13.2-15.2) H 03/20/19 04:45 Plt Count 51 K/mm3 (140-440) L 03/20/19 04:45 Crisp % (Auto) Merchandise Presentation Associate 03/18/19 05:45 Eos % (Auto) 0.4 % (0.0-4.3) 03/10/19 17:57 Crisp # 0.9 K/mm3 (0.0-0.8) H 03/10/19 17:57 Eos # 0.0 K/mm3 (0.0-0.4) 03/10/19 17:57 Baso # 0.0 K/mm3 (0.0-0.1) 03/10/19 17:57 Add Manual Diff Complete 03/18/19 05:45 Total Counted 100 03/18/19 05:45 Seg Neutrophils % Merchandise Presentation Associate 03/18/19 05:45 Seg Neuts % (Manual) 0 % (40.0-70.0) L 03/18/19 05:45 0 % 03/18/19 05:45 4.0 % (13.4-35.0) L 03/18/19 05:45 Reactive Lymphs % (Man) 0 % 03/18/19 05:45 5.0 % (0.0-7.3) 03/18/19 05:45 0 % (0.0-4.3) 03/18/19 05:45 0 % (0.0-1.8) 03/18/19 05:45 1.0 % 03/18/19 05:45 0 % 03/18/19 05:45 0 % 03/18/19 05:45 90.0 % 03/18/19 05:45 Nucleated RBC % 1.0 % (0.0-0.9) H 03/18/19 05:45 Seg Neutrophils # 0.1 K/mm3 (1.8-7.7) L 03/10/19 17:57 Seg Neutrophils # Man 0.0 K/mm3 (1.8-7.7) L 03/18/19 05:45 Band Neutrophils # 0.0 K/mm3 03/18/19 05:45 1.1 K/mm3 (1.2-5.4) L 03/18/19 05:45 Abs React Lymphs (Man) 0.0 K/mm3 03/18/19 05:45 1.4 K/mm3 (0.0-0.8) H 03/18/19 05:45 0.0 K/mm3 (0.0-0.4) 03/18/19 05:45 0.0 K/mm3 (0.0-0.1) 03/18/19 05:45 0.3 K/mm3 03/18/19 05:45 0.0 K/mm3 03/18/19 05:45 0.0 K/mm3 03/18/19 05:45 Blast Cells # 0.0 K/mm3 03/18/19 05:45 Pathologist Review 03/10/19 17:57 WBC Morphology Not Reportable 03/18/19 05:45 WBC Morphology TNR 03/18/19 05:45 Hypersegmented Neuts Not Reportable 03/18/19 05:45 Hyposegmented Neuts Not Reportable 03/18/19 05:45 Hypogranular Neuts Not Reportable 03/18/19 05:45 Not Reportable 03/18/19 05:45 Not Reportable 03/18/19 05:45 Not Reportable 03/18/19 05:45 Not Reportable 03/18/19 05:45 Not Reportable 03/18/19 05:45 Not Reportable 03/18/19 05:45 Consistent w auto 03/18/19 05:45 Not Reportable 03/18/19 05:45 Plt Clumps, EDTA Not Reportable 03/18/19 05:45 Not Reportable 03/18/19 05:45 Not Reportable 03/18/19 05:45 Not Reportable 03/18/19 05:45 Plt Morphology Comment Not Reportable 03/18/19 05:45 RBC Morphology Not Reportable 03/18/19 05:45 Dimorphic RBCs Not Reportable 03/18/19 05:45 Few 03/18/19 05:45 Not Reportable 03/18/19 05:45 Not Reportable 03/18/19 05:45 1+ 03/18/19 05:45 Few 03/18/19 05:45 Not Reportable 03/18/19 05:45 Not Reportable 03/18/19 05:45 Not Reportable 03/18/19 05:45 Not Reportable 03/18/19 05:45 Not Reportable 03/18/19 05:45 Few 03/18/19 05:45 1+ 03/18/19 05:45 Not Reportable 03/18/19 05:45 Not Reportable 03/18/19 05:45 Not Reportable 03/18/19 05:45 Not Reportable 03/18/19 05:45 Not Reportable 03/18/19 05:45 Not Reportable 03/18/19 05:45 Not Reportable 03/18/19 05:45 Acanthocytes (Spur) Few 03/18/19 05:45 Rouleaux Not Reportable 03/18/19 05:45 Not Reportable 03/18/19 05:45 Not Reportable 03/18/19 05:45 Not Reportable 03/18/19 05:45 Not Reportable 03/18/19 05:45 Hem Pathologist Commnt Sent to pathology 03/18/19 05:45 PT 14.4 Sec. (12.2-14.9) 03/10/19 17:57 INR 1.15 (0.87-1.13) H 03/10/19 17:57 APTT 28.8 Sec. (24.2-36.6) 03/10/19 17:57 POC ABG pH 7.398 (7.35-7.45) 03/19/19 03:48 POC ABG pCO2 43.5 (35-45) 03/19/19 03:48 POC ABG pO2 80 (80-105) 03/19/19 03:48 POC ABG HCO3 26.8 (22-26 mml/L) 03/19/19 03:48 POC ABG Total CO2 28 (23-27mmol/L) 03/19/19 03:48 POC ABG O2 Sat 96 03/19/19 03:48 POC ABG Base Excess 2 ((-2) - (+3)mmol/L) 03/19/19 03:48 VBG pH 7.381 (7.320-7.420) 03/10/19 17:57 45 % 03/19/19 03:48 Sodium 140 mmol/L (137-145) 03/20/19 04:45 Potassium 4.7 mmol/L (3.6-5.0) 03/20/19 04:45 Chloride 98.3 mmol/L (98-107) 03/20/19 04:45 Carbon Dioxide 26 mmol/L (22-30) 03/20/19 04:45 20 mmol/L 03/20/19 04:45 BUN 51 mg/dL (9-20) H 03/20/19 04:45 5.1 mg/dL (0.8-1.5) H 03/20/19 04:45 Estimated GFR 12 ml/min 03/20/19 04:45 10 % 03/20/19 04:45 Glucose 221 mg/dL (75-100) H 03/20/19 04:45 POC Glucose 254 (70-105) H 03/22/19 05:43 Lactic Acid 1.70 mmol/L (0.7-2.0) 03/10/19 23:17 4.0 mg/dL (3.5-7.6) 03/19/19 06:15 Calcium 7.8 mg/dL (8.4-10.2) L 03/20/19 04:45 Magnesium 1.80 mg/dL (1.7-2.3) 03/17/19 05:30 0.50 mg/dL (0.1-1.2) 03/15/19 07:15 AST 522 units/L (5-40) H 03/15/19 07:15 ALT 474 units/L (7-56) H 03/15/19 07:15 129 units/L (35-129) 03/15/19 07:15 853 units/L (91-180) H 03/19/19 06:15 1156 units/L (55-170) H 03/11/19 06:07 CK-MB (CK-2) 4.6 ng/mL (0.0-4.0) H 03/11/19 06:07 CK-MB (CK-2) Rel Index 0.3 (0-4) 03/11/19 06:07 0.077 ng/mL (0.00-0.029) H 03/11/19 06:07 5.7 g/dL (6.3-8.2) L 03/15/19 07:15 2.4 g/dL (3.9-5) L 03/15/19 07:15 0.7 % 03/15/19 07:15 Triglycerides 91 mg/dL (2-149) 03/11/19 00:50 Cholesterol < 4 mg/dL (50-199) L 03/11/19 00:50 4 mg/dL (50-130) L 03/11/19 00:50 < 3 mg/dL (40-59) L 03/11/19 00:50 1.00 % 03/11/19 00:50 Briana (Yellow) 03/10/19 23:06 Cloudy (Clear) 03/10/19 23:06 5.0 (5.0-7.0) 03/10/19 23:06 Ur Specific [place] 1.016 (1.003-1.030) 03/10/19 23:06 >500 mg/dL (Negative) 03/10/19 23:06 Neg mg/dL (Negative) 03/10/19 23:06 Neg mg/dL (Negative) 03/10/19 23:06 Mod (Negative) 03/10/19 23:06 Neg (Negative) 03/10/19 23:06 Neg (Negative) 03/10/19 23:06 2.0 mg/dL (<2.0) 03/10/19 23:06 Ur Leukocyte Esterase Neg (Negative) 03/10/19 23:06 24.0 /HPF (0.0-6.0) H 03/10/19 23:06 24.0 /HPF (0.0-6.0) 03/10/19 23:06 U Epithel Cells (Auto) 4.0 /HPF (0-13.0) 03/10/19 23:06 Amorphous Crystals Few 03/10/19 23:06 Random Vancomycin 14 ug/mL (0-40.0) 03/12/19 05:06 Proteinase 3 (PR3) Ab <1.0 AI (<1.0) 03/13/19 09:11 Myeloperoxidase Ab <1.0 AI (<1.0) 03/13/19 09:11 86 mg/dL (82-185) 03/13/19 09:12 37 mg/dL (15-53) 03/13/19 09:12 C. difficile Tox (PCR) Negative (Negative) 03/11/19 Unknown Hepatitis A IgM Ab Non-reactive (NonReactive) 03/13/19 01:31 Hep Bs Antigen Non-reactive (Negative) 03/13/19 01:31 Hep B Core IgM Ab Non-reactive (NonReactive) 03/13/19 01:31 Non-reactive (NonReactive) 03/13/19 01:31 Influenza A (Rapid) Negative (Negative) 03/10/19 18:00 Influenza B (Rapid) Negative (Negative) 03/10/19 18:00 Blood Type A POSITIVE 03/17/19 13:06 Antibody Screen Negative 03/17/19 13:06 Crossmatch See Detail 03/17/19 13:06 Active Medications - Current Medications Current Medications: Generic Name Dose Route Start Last Admin Trade Name Freq PRN Reason Stop Dose Admin Acetaminophen 650 mg 03/11/19 00:40 03/22/19 09:05 Tylenol PO 650 mg Q4H PRN Administration Pain MILD(1-3)/Fever >100.5/[place] Acetaminophen 650 mg 03/11/19 00:40 03/12/19 04:53 Tylenol [place] 650 mg Q4H PRN Administration Pain MILD(1-3)/Fever >100.5/[place] Albumin Human 12.5 gm 03/13/19 09:29 Alburx 25% (Albumin) IV DUKE PRN Hypotension Albuterol 2.5 mg 03/17/19 16:00 03/22/19 07:36 Proventil IH 2.5 mg Q8HRT ROXANNE Administration Lipase/Protease/Amylase 1 each 03/15/19 13:[address] 10,500 Unit FEEDTUBE PRN PRN For Clogged Feeding Tube Dextrose 50 ml 03/11/19 00:44 D50w (25gm) Syringe IV PRN PRN Hypoglycemia Fentanyl 50 mcg 03/11/19 07:50 03/22/19 07:40 Sublimaze IV 50 mcg Q10MIN PRN Administration ANALGESIA Hydrophilic Ointment 1 applic 03/10/19 19:50 Vaseline Lip Therapy TP Q2HR PRN Dry Lips Propofol 1,000 mg in 100 mls @ 4.082 mls/hr 03/10/19 20:00 03/11/19 14:30 Diprivan 10 Mg/Ml IV Infused TITR ROXANNE Titration Protocol 5 MCG/KG/MIN Norepinephrine 4 mg in 250 mls @ 7.5 mls/hr 03/10/19 21:00 03/21/19 14:05 Levophed Drip 4 Mg/Ns 250 Ml IV 0 mcg/min TITR ROXANNE 0 mls/hr Titration Protocol 2 MCG/MIN Fentanyl Citrate 2,000 mcg in 100 mls @ 6.804 mls/hr 03/11/19 08:00 03/20/19 09:05 Fentanyl Drip Premix IV 0 mcg/kg/hr TITR ROXANNE 0 mls/hr Titration Protocol 1 MCG/KG/HR Ceftriaxone Sodium 2 gm in 100 mls @ 200 mls/hr 03/11/19 13:00 03/22/19 09:05 Rocephin/Ns 2 Gm/100 Ml IV 200 mls/hr Q12HR ROXANNE Administration Protocol Sodium Chloride 100 mls @ 999 mls/hr 03/15/19 08:11 Nacl 0.9% IV DUKE PRN Hypotension Insulin Glargine 40 units 03/19/19 08:00 03/22/19 09:04 Lantus SUB-Q 40 units QAMDIAB ROXANNE Administration Insulin Human Lispro 0 unit 03/11/19 06:00 03/22/19 06:49 Humalog SUB-Q 6 unit Q6HR [facility] Administration Protocol Lansoprazole 30 mg 03/18/19 10:00 03/22/19 09:05 Prevacid Solutab FEEDTUBE 30 mg QDAY ROXANNE Administration Midodrine 10 mg 03/19/19 16:00 03/22/19 09:06 Proamatine PO 10 mg TID@0800,1200,1600 [facility] Administration Multi-Ingred Cream/Lotion/Oil/Oint 1 applic 03/10/19 19:50 Artificial Tears Ophth Oint OU Q4HR PRN Dry Eye(s) Ondansetron HCl 4 mg 03/11/19 00:40 03/19/19 21:53 Zofran IV 4 mg Q8H PRN Administration Nausea And Vomiting Simple Syrup 15 ml 03/15/19 13:21 Simple Syrup FEEDTUBE PRN PRN Hypoglycemia Simple Syrup 30 ml 03/15/19 13:21 Simple Syrup FEEDTUBE PRN PRN Hypoglycemia Sodium Bicarbonate 325 mg 03/15/19 13:21 Sodium Bicarbonate FEEDTUBE PRN PRN For Clogged Feeding Tube Sodium Chloride 10 ml 03/11/19 10:00 03/21/19 22:27 Sodium Chloride Flush Syringe 10 Ml IV 10 ml BID ROXANNE Administration Sodium Chloride 10 ml 03/11/19 00:40 Sodium Chloride Flush Syringe 10 Ml IV PRN PRN LINE FLUSH Nutrition/Malnutrition Assess - Dietary Evaluation Nutrition/Malnutrition Findings: Nutrition Notes Start: 03/12/19 11:38 Freq: Status: Active Protocol: Document 03/19/19 17:16 RM (Rec: 03/19/19 17:19 RM [id number]) Nutrition Notes Initial or Follow up Reassessment Current Diagnosis CKD(stage I-IV),Coronary Artery Disease,Diabetes,Sepsis ,Hypertension,Respiratory Failure Other Pertinent Diagnosis s/p cardiac arrest, anoxic brain injury Current Diet TF - Nepro at 45ml/hr Labs/Tests Reviewed Pertinent Medications Reviewed Height 5 ft 4 in Weight 147.8 kg [place] Body Weight (kg) 59.09 BMI 55.9 Subjective/Other Information Observed Nepro infusing at goal rate. Per nurse pt is tolerating TF. Percent of energy/protein needs met: 73% energy 71% pro Burn Absent Trauma Absent #1 Nutrition Diagnosis Inadequate oral intake Diagnosis Progress(for reassessment Continues documentation) Is patient on ventilator? Yes Is Patient Ambulatory and/or Out of Bed No [facility] 0432.304 Calculation Used for Recommendations 65-70% energy needs Additional Notes Energy needs: 9754-1781 kcal/ day Pro needs 1.2-1.4g/kg adjBW: 124-145g/day Fluid needs 1-1.5L/day Nutrition Intervention Nutrition Support: Continue Nepro at 45ml/hr with 120ml water flush q4h. Kcal 1,944 Protein (gm) 87 Carbohydrates (gm) 174 Fat (gm) 104 Fluid (mL) 785 Fiber (gm) 14 Goal #1 TF tolerance Goal #2 TF to meet nutrient needs as best possible Follow-Up By: 03/26/19 Additional Comments Follow for TF tolerance
--- NOTE | 2019-03-22 10:56 | Progress Note ---
Assessment and Plan - Patient Problems (1) Acute on chronic renal failure Current Visit: Yes Status: Acute Qualifiers: Chronic kidney disease stage: stage 3 (moderate) Plan to address problem: Likely secondary to acute tubular necrosis. Patient remains anuric. ANCA studies negative, complements within normal limits. Will maintain on MWF inpatient HD schedule with extra isolated UF sessions as necessary . (2) Hyperkalemia Current Visit: Yes Status: Acute Plan to address problem: Potassium levels stabilized on dialysis. (3) Cardiopulmonary arrest with successful resuscitation Current Visit: Yes Status: Acute Plan to address problem: Return of spontaneous circulation in the emergency room about 2 doses of epinephrine. Patient is on Levothroid at this time and cardiology evaluation has been reviewed and noted. Patient also had a repeat echocardiogram done and reviewed with EF 40-45% and impaired relaxation noted. We'll follow up with further recommendations from cardiology standpoint. (4) Sepsis Current Visit: Yes Status: Acute Qualifiers: Sepsis type: Streptococcus group B Qualified Code(s): A40.1 - Sepsis due to streptococcus, group B Plan to address problem: Streptococcal bacteremia noted on initial blood cultures. Patient is on the antibiotics at this time per infectious disease recommendations. Please ensure that antibiotics are dosed appropriately for his decreased creatinine clearance and renal function. (5) Metabolic acidosis Current Visit: Yes Status: Acute Plan to address problem: Will address with hemodialysis. Bicarbonate gtt has been discontinued. (6) Hypotension Current Visit: Yes Status: Acute Qualifiers: Hypotension type: unspecified hypotension type Qualified Code(s): I95.9 - Hypotension, unspecified Plan to address problem: Patient has now been weaned off pressor support. Will continue to monitor closely. (7) Type 2 diabetes mellitus with diabetic chronic kidney disease Current Visit: Yes Status: Acute Qualifiers: Chronic kidney disease stage: stage 3 (moderate) Plan to address problem: diabetes management per primary attending. Subjective Date of service: 03/22/19 Principal diagnosis: leukemia Interval history: No acute issues overnight, tolerated HD with removal of 3L UF. Off pressor support for more than 24 hours. Objective - Vital Signs Vital signs: Vital Signs - 12hr 03/21/19 03/21/19 03/21/19 23:00 23:01 23:10 Temperature 100.2 F H Pulse Rate 95 H 94 H Pulse Rate [ Anterior Bilateral Throughout] Pulse Rate [ From Monitor] Respiratory 34 H 35 H Rate Respiratory Rate [Anterior Bilateral Throughout] Blood Pressure 110/62 110/62 O2 Sat by Pulse 96 97 Oximetry 03/21/19 03/22/19 03/22/19 23:31 00:00 00:23 Temperature Pulse Rate 94 H 97 H 98 H Pulse Rate [ Anterior Bilateral Throughout] Pulse Rate [ 102 H From Monitor] Respiratory 33 H 36 H Rate Respiratory Rate [Anterior Bilateral Throughout] Blood Pressure 120/61 93/57 129/39 O2 Sat by Pulse 98 96 95 Oximetry 03/22/19 03/22/19 03/22/19 00:30 00:39 00:45 Temperature Pulse Rate 98 H Pulse Rate [ 100 H 100 H Anterior Bilateral Throughout] Pulse Rate [ From Monitor] Respiratory 36 H Rate Respiratory 33 H 33 H Rate [Anterior Bilateral Throughout] Blood Pressure 104/45 O2 Sat by Pulse 94 Oximetry 03/22/19 03/22/19 03/22/19 01:00 01:31 02:01 Temperature Pulse Rate 101 H 103 H 101 H Pulse Rate [ Anterior Bilateral Throughout] Pulse Rate [ From Monitor] Respiratory 36 H 36 H 37 H Rate Respiratory Rate [Anterior Bilateral Throughout] Blood Pressure 132/31 148/43 167/29 O2 Sat by Pulse 89 93 97 Oximetry 03/22/19 03/22/19 03/22/19 02:31 03:01 03:18 Temperature 100.9 F H Pulse Rate 103 H 103 H Pulse Rate [ Anterior Bilateral Throughout] Pulse Rate [ From Monitor] Respiratory 38 H 38 H Rate Respiratory Rate [Anterior Bilateral Throughout] Blood Pressure 112/26 109/39 O2 Sat by Pulse 96 97 Oximetry 03/22/19 03/22/19 03/22/19 03:31 04:00 04:01 Temperature Pulse Rate 105 H 106 H 105 H Pulse Rate [ Anterior Bilateral Throughout] Pulse Rate [ 104 H From Monitor] Respiratory 39 H 39 H Rate Respiratory Rate [Anterior Bilateral Throughout] Blood Pressure 103/70 103/70 O2 Sat by Pulse 59 L 96 96 Oximetry 03/22/19 03/22/19 03/22/19 04:26 04:31 05:01 Temperature Pulse Rate 104 H 105 H 105 H Pulse Rate [ Anterior Bilateral Throughout] Pulse Rate [ From Monitor] Respiratory 40 H 41 H Rate Respiratory Rate [Anterior Bilateral Throughout] Blood Pressure 86/34 118/47 92/44 O2 Sat by Pulse 97 96 96 Oximetry 03/22/19 03/22/1903/22/19 05:31 06:01 06:31 Temperature Pulse Rate 106 H 108 H 99 H Pulse Rate [ Anterior Bilateral Throughout] Pulse Rate [ From Monitor] Respiratory 40 H 42 H 37 H Rate Respiratory Rate [Anterior Bilateral Throughout] Blood Pressure 101/30 61/33 91/36 O2 Sat by Pulse 96 95 96 Oximetry 03/22/19 03/22/19 03/22/19 07:00 07:30 07:37 Temperature Pulse Rate 109 H 117 H Pulse Rate [ 96 H Anterior Bilateral Throughout] Pulse Rate [ From Monitor] Respiratory 44 H 47 H Rate Respiratory 42 H Rate [Anterior Bilateral Throughout] Blood Pressure 114/48 129/66 O2 Sat by Pulse 96 95 Oximetry 03/22/19 03/22/19 03/22/19 07:38 08:00 08:30 Temperature Pulse Rate 113 H 108 H 108 H Pulse Rate [ Anterior Bilateral Throughout] Pulse Rate [ From Monitor] Respiratory 33 H 31 H Rate Respiratory Rate [Anterior Bilateral Throughout] Blood Pressure 143/51 144/48 146/41 O2 Sat by Pulse 96 95 92 Oximetry 03/22/19 09:00 Temperature Pulse Rate 109 H Pulse Rate [ Anterior Bilateral Throughout] Pulse Rate [ From Monitor] Respiratory 25 H Rate Respiratory Rate [Anterior Bilateral Throughout] Blood Pressure 124/62 O2 Sat by Pulse 96 Oximetry - General Appearance General appearance: obese, chronically ill, intubated EENT: ATNC Neck: no JVD Respiratory: Present: Decreased Breath Sounds Cardiology: regular, S1S2 Gastrointestinal: normal, obese Integumentary: no rash Neurologic: other (unresponsive ) Musculoskeletal: other (+edema ) - Lab 03/20/19 04:45 03/20/19 04:45 Most recent lab results Calcium 7.8 mg/dL (8.4-10.2) L 03/20/19 04:45 Magnesium 1.80 mg/dL (1.7-2.3) 03/17/19 05:30 - Imaging Chest x-ray: report reviewed - Allied health notes Allied health notes reviewed: nursing Medications & Allergies - Medications Allergies/Adverse Reactions: Allergies No Known Allergies Allergy (Verified 03/10/19 17:37) Home Medications: Home Medications Medication Instructions Recorded Confirmed Last Taken Type Allopurinol [Zyloprim] 300 mg PO DAILY 03/10/19 03/10/19 Unknown History Aspirin [Adult Aspirin] 81 mg PO DAILY 03/10/19 03/10/19 Unknown History Atorvastatin [Lipitor Tab] 80 mg PO DAILY 03/10/19 03/10/19 Unknown History Carvedilol [Coreg] 12.5 mg PO BID 03/10/19 03/10/19 Unknown History Clopidogrel [Plavix] 75 mg PO DAILY 03/10/19 03/10/19 Unknown History Gabapentin [Neurontin] 300 mg PO BID 03/10/19 03/10/19 Unknown History Insulin Lispro Protamin/Lispro 33 unit SQ BID 03/10/19 03/10/19 Unknown History [Humalog Mix 75-25 Vial] Lisinopril [Zestril TAB] 10 mg PO DAILY 03/10/19 03/10/19 Unknown History Pantoprazole [Protonix] 40 mg PO DAILY 03/10/19 03/10/19 Unknown History Sitagliptin Phosphate [Januvia] 50 mg PO DAILY 03/10/19 03/10/19 Unknown History Active Medications: Generic Name Dose Route Start Last Admin Trade Name Solisq PRN Reason Stop Dose Admin Acetaminophen 650 mg 03/11/19 00:40 03/22/19 09:05 Tylenol PO 650 mg Q4H PRN Administration Pain MILD(1-3)/Fever >100.5/[place] Acetaminophen 650 mg 03/11/19 00:40 03/12/19 04:53 Tylenol [place] 650 mg Q4H PRN Administration Pain MILD(1-3)/Fever >100.5/[place] Albumin Human 12.5 gm 03/13/19 09:29 Alburx 25% (Albumin) IV DUKE PRN Hypotension Albuterol 2.5 mg 03/17/19 16:00 03/22/19 07:36 Proventil IH 2.5 mg Q8HRT RXOANNE Administration Lipase/Protease/Amylase 1 each 03/15/19 13:21 Pancreazjovan Manzo 10,500 Unit FEEDTUBE PRN PRN For Clogged Feeding Tube Dextrose 50 ml 03/11/19 00:44 D50w (25gm) Syringe IV PRN PRN Hypoglycemia Fentanyl 50 mcg 03/11/19 07:50 03/22/19 07:40 Sublimaze IV 50 mcg Q10MIN PRN Administration ANALGESIA Hydrophilic Ointment 1 applic 03/10/19 19:50 Vaseline Lip Therapy TP Q2HR PRN Dry Lips Propofol 1,000 mg in 100 mls @ 4.082 mls/hr 03/10/19 20:00 03/11/19 14:30 Diprivan 10 Mg/Ml IV Infused TITR ROXANNE Titration Protocol 5 MCG/KG/MIN Norepinephrine 4 mg in 250 mls @ 7.5 mls/hr 03/10/19 21:00 03/21/19 14:05 Levophed Drip 4 Mg/Ns 250 Ml IV 0 mcg/min TITR ROXANNE 0 mls/hr Titration Protocol 2 MCG/MIN Fentanyl Citrate 2,000 mcg in 100 mls @ 6.804 mls/hr 03/11/19 08:00 03/20/19 09:05 Fentanyl Drip Premix IV 0 mcg/kg/hr TITR ROXANNE 0 mls/hr Titration Protocol 1 MCG/KG/HR Ceftriaxone Sodium 2 gm in 100 mls @ 200 mls/hr 03/11/19 13:00 03/22/19 09:05 Rocephin/Ns 2 Gm/100 Ml IV 200 mls/hr Q12HR ROXANNE Administration Protocol Sodium Chloride 100 mls @ 999 mls/hr 03/15/19 08:11 Nacl 0.9% IV DUKE PRN Hypotension Insulin Glargine 40 units 03/19/19 08:00 03/22/19 09:04 Lantus SUB-Q 40 units QAMDIAB ROXANNE Administration Insulin Human Lispro 0 unit 03/11/19 06:00 03/22/19 06:49 Humalog SUB-Q 6 unit Q6HR ROXANNE Administration Protocol Lansoprazole 30 mg 03/18/19 10:00 03/22/19 09:05 Prevacid Solutab FEEDTUBE 30 mg QDAY ROXANNE Administration Midodrine 10 mg 03/19/19 16:00 03/22/19 09:06 Proamatine PO 10 mg TID@0800,1200,1600 ROXANNE Administration Multi-Ingred Cream/Lotion/Oil/Oint 1 applic 03/10/19 19:50 Artificial Tears Ophth Oint OU Q4HR PRN Dry Eye(s) Ondansetron HCl 4 mg 03/11/19 00:40 03/19/19 21:53 Zofran IV 4 mg Q8H PRN Administration Nausea And Vomiting Simple Syrup 15 ml 03/15/19 13:21 Simple Syrup FEEDTUBE PRN PRN Hypoglycemia Simple Syrup 30 ml 03/15/19 13:21 Simple Syrup FEEDTUBE PRN PRN Hypoglycemia Sodium Bicarbonate 325 mg 03/15/19 13:21 Sodium Bicarbonate FEEDTUBE PRN PRN For Clogged Feeding Tube Sodium Chloride 10 ml 03/11/19 10:00 03/21/19 22:27 Sodium Chloride Flush Syringe 10 Ml IV 10 ml BID ROXANNE Administration Sodium Chloride 10 ml 03/11/19 00:40 Sodium Chloride Flush Syringe 10 Ml IV PRN PRN LINE FLUSH
--- NOTE | 2019-03-22 13:35 | Progress Note ---
Assessment and Plan s/p Cardiopulmonary arrest with ROSC Acute on chronic hypoxemic respiratory failure on MVS Severe sepsis with septic shock - Streptococcal Acute on chronic renal failure (multifactorial) Acute metabolic-toxic encephalopathy Morbid obesity h/o CAD s/p 2 stents Pancytopenia- probably secondary to sepsis and underlying chronic liver disease Type 2 DM h/o Alcohol abuse disorder (I have expressed to his daughter that AMS is rate limiting step to safe extubation and a trach & PEG will likely be needed if remains persistent) - get stat ABG and evaluate for eosinophillia - suspect "heat rash" type reaction vs leukemia related rash - get lactate and CRP levels re: leucocytosis (evaluate true infectious potential) - continue midodrine for BP support - Hematology evaluation ongoing (? Flow cytometry) - continue fentanyl drip and titrate sedation for RASS 0 to -1 - continue Lantus Insulin at 40 units daily - continue HD/UF for toxin and volume clearance - wean levophed for MAP > 65 mmHg - complete AB's per ID rec's - TTE with EF 40-45% and diastolic dysfunction - continue Lung protective strategies - continue serial CXR's and ABG's - VAP bundle addressed - Critical care bundles addressed - Daily SATs and SBTs as odalys,erated (not tolerating well) - continue supplemental oxygen to keep O2 sats 90-92% - continue bronchodilators with pulm hygiene per RT - continue accuchecks with glycemic control per SSI for target blood glucose <180mg/dL - enteral nutrition as tolerated - Agitation management - Prevention of delirium, maintenance of sleep-wake cycle - Antibiotic therapy per ID - De-escalate therapy based on microbiology/HAYDER/Cultures - Trend hematologic indices - Avoid nephrotoxic agents, adjust all antibiotics and medications for CrCL and GFR - VTE ( SCDs) and Stress ulcer prophylaxis( therapeutic PPI for now) - discontinue Womack catheter if OK with switchboard operator assistant .... re-evaluate in am & prn CONDITION: CRITICAL PROGNOSIS: GUARDED CODE STATUS: FULL CODE Discussed with ID service and with RT/RN Discussed on ICU-IDT rounds The high probability of a clinically significant, sudden or life-threatening deterioration of the [respiratory, cardiovascular, renal, neurology] system(s) required my full and direct attention, intervention and personal management. The aggregate critical care time was [32] minutes without overlap. Time includes spent on; [x] Data Review and interpretation [x] Patient assessment and monitoring of vital signs [x] Documentation [x] Medication orders and management Subjective Date of service: 03/22/19 Principal diagnosis: s/p cardiac arrest; acute hypoxemic resp failure; ISMAEL; hyperkalemia, Sepsis Interval history: Patient is seen today for: s/p cardiopulmonary arrest, acute hypoxemic respiratory failure, ISMAEL, Severe hyperkalemia, Severe sepsis Seen and examined at bedside; 24hour events reviewed; nursing and respiratory care staff consulted; no adverse overnight events reported to me; remains on MVS; erythematous rash to back and sides of abdomen noted; Afebrile; no overt hemodynamic decompensation; AMS is persistent; remains on full MVS; no seizure activity Objective Vital Signs - 12hr 03/22/19 03/22/19 03/22/19 02:01 02:31 03:01 Temperature Pulse Rate 101 H 103 H 103 H Pulse Rate [ Anterior Bilateral Throughout] Pulse Rate [ From Monitor] Respiratory 37 H 38 H 38 H Rate Respiratory Rate [Anterior Bilateral Throughout] Blood Pressure 167/29 112/26 109/39 O2 Sat by Pulse 97 96 97 Oximetry 03/22/19 03/22/19 03/22/19 03:18 03:31 04:00 Temperature 100.9 F H Pulse Rate 105 H 106 H Pulse Rate [ Anterior Bilateral Throughout] Pulse Rate [ 104 H From Monitor] Respiratory 39 H Rate Respiratory Rate [Anterior Bilateral Throughout] Blood Pressure 103/70 O2 Sat by Pulse 59 L 96 Oximetry 03/22/19 03/22/19 03/22/19 04:01 04:26 04:31 Temperature Pulse Rate 105 H 104 H 105 H Pulse Rate [ Anterior Bilateral Throughout] Pulse Rate [ From Monitor] Respiratory 39 H 40 H Rate Respiratory Rate [Anterior Bilateral Throughout] Blood Pressure 103/70 86/34 118/47 O2 Sat by Pulse 96 97 96 Oximetry 03/22/19 03/22/19 03/22/19 05:01 05:31 06:01 Temperature Pulse Rate 105 H 106 H 108 H Pulse Rate [ Anterior Bilateral Throughout] Pulse Rate [ From Monitor] Respiratory 41 H 40 H 42 H Rate Respiratory Rate [Anterior Bilateral Throughout] Blood Pressure 92/44 101/30 61/33 O2 Sat by Pulse 96 96 95 Oximetry 03/22/19 03/22/19 03/22/19 06:31 07:00 07:30 Temperature Pulse Rate 99 H 109 H 117 H Pulse Rate [ Anterior Bilateral Throughout] Pulse Rate [ From Monitor] Respiratory 37 H 44 H 47 H Rate Respiratory Rate [Anterior Bilateral Throughout] Blood Pressure 91/36 114/48 129/66 O2 Sat by Pulse 96 96 95 Oximetry 03/22/19 03/22/19 03/22/19 07:37 07:38 08:00 Temperature 100.7 F H Pulse Rate 113 H 109 H Pulse Rate [ 96 H Anterior Bilateral Throughout] Pulse Rate [ From Monitor] Respiratory 33 H Rate Respiratory 42 H Rate [Anterior Bilateral Throughout] Blood Pressure 143/51 144/48 O2 Sat by Pulse 96 95 Oximetry 03/22/19 03/22/19 03/22/19 08:30 09:00 09:31 Temperature Pulse Rate 108 H 109 H 102 H Pulse Rate [ Anterior Bilateral Throughout] Pulse Rate [ From Monitor] Respiratory 31 H 25 H 26 H Rate Respiratory Rate [Anterior Bilateral Throughout] Blood Pressure 146/41 124/62 122/46 O2 Sat by Pulse 92 96 96 Oximetry 03/22/19 03/22/19 03/22/19 10:00 10:30 11:00 Temperature Pulse Rate 102 H 102 H 100 H Pulse Rate [ Anterior Bilateral Throughout] Pulse Rate [ From Monitor] Respiratory 25 H 39 H 38 H Rate Respiratory Rate [Anterior Bilateral Throughout] Blood Pressure 141/55 136/47 130/49 O2 Sat by Pulse 96 97 97 Oximetry 03/22/19 03/22/19 11:30 12:00 Temperature 98.8 F Pulse Rate 99 H 98 H Pulse Rate [ Anterior Bilateral Throughout] Pulse Rate [ From Monitor] Respiratory 36 H Rate Respiratory Rate [Anterior Bilateral Throughout] Blood Pressure 127/34 116/51 O2 Sat by Pulse 97 96 Oximetry Constitutional: appears uncomfortable, other (m,iddle aged morbidly obese CM, normocephalic with mildly increased resp effort at rest on MVS) Eyes: non-icteric ENT: oropharynx moist, other (ETT 24 cm ASHA) Neck: supple, no lymphadenopathy, no JVD, other (large neck circumference) Effort: very labored Ascultation: Bilateral: diminished breath sounds, rhonchi (bases) Percussion: Bilateral: not dull Cardiovascular: regular rate and rhythm, other (No R/M) Gastrointestinal: normoactive bowel sounds, soft, non-tender, non-distended Integumentary: normal Extremities: no cyanosis, pink and warm, pulses normal, no ischemia or petechiae Neurologic: non-focal exam (grossly), pupils equal and round, unable to assess, other (Encephalopathic) Psychiatric: other (unable to assess) CBC and BMP: 03/23/19 04:10 03/23/19 04:00 ABG, PT/INR, D-dimer: ABG POC ABG pH 7.398 (7.35-7.45) 03/19/19 03:48 POC ABG pCO2 43.5 (35-45) 03/19/19 03:48 POC ABG pO2 80 (80-105) 03/19/19 03:48 POC ABG HCO3 26.8 (22-26 mml/L) 03/19/19 03:48 POC ABG Total CO2 28 (23-27mmol/L) 03/19/19 03:48 POC ABG O2 Sat 96 03/19/19 03:48 PT/INR, D-dimer PT 14.4 Sec. (12.2-14.9) 03/10/19 17:57 INR 1.15 (0.87-1.13) H 03/10/19 17:57 Abnormal lab findings: Abnormal Labs 03/10/19 03/10/19 03/10/19 17:57 17:57 17:57 WBC 1.2 L* RBC 2.46 L Hgb 7.9 L Hct 23.2 L MCV MCHC RDW 18.2 H Plt Count 47 L Parker # 0.9 H Seg Neuts % (Manual) 6.0 L Lymphocytes % (Manual) 74.0 H Monocytes % (Manual) 20.0 H Nucleated RBC % Seg Neutrophils # 0.1 L Seg Neutrophils # Man 0.1 L Lymphocytes # (Manual) 0.9 L Monocytes # (Manual) INR POC ABG pH POC ABG pCO2 POC ABG pO2 Potassium Chloride Carbon Dioxide BUN 46 H Creatinine 2.9 H Glucose 200 H POC Glucose Lactic Acid 2.50 H* Calcium 7.6 L Total Bilirubin AST ALT Lactate Dehydrogenase Total Creatine Kinase CK-MB (CK-2) Troponin T Total Protein Albumin 3.2 L Cholesterol LDL Cholesterol Direct HDL Cholesterol Urine WBC (Auto) Crossmatch 03/10/19 03/10/19 03/10/19 17:57 18:01 18:52 WBC RBC Hgb Hct MCV MCHC RDW Plt Count Parker # Seg Neuts % (Manual) Lymphocytes % (Manual) Monocytes % (Manual) Nucleated RBC % Seg Neutrophils # Seg Neutrophils # Man Lymphocytes # (Manual) Monocytes # (Manual) INR 1.15 H POC ABG pH POC ABG pCO2 POC ABG pO2 Potassium Chloride Carbon Dioxide BUN Creatinine Glucose POC Glucose 234 H Lactic Acid Calcium Total Bilirubin AST ALT Lactate Dehydrogenase Total Creatine Kinase CK-MB (CK-2) Troponin T Total Protein Albumin Cholesterol LDL Cholesterol Direct HDL Cholesterol Urine WBC (Auto) Crossmatch See Detail 03/10/19 03/10/19 03/10/19 19:16 21:32 23:06 WBC RBC Hgb Hct MCV MCHC RDW Plt Count [place] # Seg Neuts % (Manual) Lymphocytes % (Manual) Monocytes % (Manual) Nucleated RBC % Seg Neutrophils # Seg Neutrophils # Man Lymphocytes # (Manual) Monocytes # (Manual) INR POC ABG pH POC ABG pCO2 POC ABG pO2 315 H Potassium Chloride Carbon Dioxide BUN Creatinine Glucose POC Glucose Lactic Acid 2.80 H* Calcium Total Bilirubin AST ALT Lactate Dehydrogenase Total Creatine Kinase CK-MB (CK-2) Troponin T Total Protein Albumin Cholesterol LDL Cholesterol Direct HDL Cholesterol Urine WBC (Auto) 24.0 H Crossmatch 03/10/19 03/11/19 03/11/19 23:29 00:50 05:01 WBC RBC 2.29 L Hgb 7.3 L Hct 22.2 L MCV 97 H MCHC RDW 18.2 H Plt Count 40 L [place] # Seg Neuts % (Manual) 8.0 L Lymphocytes % (Manual) 67.0 H Monocytes % (Manual) 24.0 H Nucleated RBC % 5.0 H Seg Neutrophils # Seg Neutrophils # Man 0.4 L Lymphocytes # (Manual) Monocytes # (Manual) 1.2 H INR POC ABG pH POC ABG pCO2 POC ABG pO2 Potassium Chloride Carbon Dioxide BUN Creatinine Glucose POC Glucose 237 H Lactic Acid Calcium Total Bilirubin AST ALT Lactate Dehydrogenase Total Creatine Kinase 513 H CK-MB (CK-2) Troponin T 0.075 H Total Protein Albumin Cholesterol < 4 L LDL Cholesterol Direct 4 L HDL Cholesterol < 3 L Urine WBC (Auto) Crossmatch 03/11/19 03/11/19 03/11/19 05:01 06:06 06:07 WBC RBC Hgb Hct MCV MCHC RDW Plt Count [place] # Seg Neuts % (Manual) Lymphocytes % (Manual) Monocytes % (Manual) Nucleated RBC % Seg Neutrophils # Seg Neutrophils # Man Lymphocytes # (Manual) Monocytes # (Manual) INR POC ABG pH POC ABG pCO2 32.8 L POC ABG pO2 Potassium 5.3 H Chloride Carbon Dioxide 19 L BUN 49 H Creatinine 3.7 H Glucose 203 H POC Glucose Lactic Acid Calcium 7.1 L Total Bilirubin AST ALT Lactate Dehydrogenase Total Creatine Kinase 1156 H CK-MB (CK-2) 4.6 H Troponin T 0.077 H Total Protein Albumin Cholesterol LDL Cholesterol Direct HDL Cholesterol Urine WBC (Auto) Crossmatch 03/11/19 03/11/19 03/11/19 06:35 13:07 18:36 WBC RBC Hgb Hct MCV MCHC RDW Plt Count [place] # Seg Neuts % (Manual) Lymphocytes % (Manual) Monocytes % (Manual) Nucleated RBC % Seg Neutrophils # Seg Neutrophils # Man Lymphocytes # (Manual) Monocytes # (Manual) INR POC ABG pH POC ABG pCO2 POC ABG pO2 Potassium Chloride Carbon Dioxide BUN Creatinine Glucose POC Glucose 209 H 185 H 126 H Lactic Acid Calcium Total Bilirubin AST ALT Lactate Dehydrogenase Total Creatine Kinase CK-MB (CK-2) Troponin T Total Protein Albumin Cholesterol LDL Cholesterol Direct HDL Cholesterol Urine WBC (Auto) Crossmatch 03/11/19 03/12/19 03/12/19 23:45 04:25 05:06 WBC RBC 2.24 L Hgb 7.2 L Hct 21.9 L MCV 98 H MCHC RDW 18.3 H Plt Count 38 L Parker # Seg Neuts % (Manual) 4.0 L Lymphocytes % (Manual) Monocytes % (Manual) 69.0 H Nucleated RBC % Seg Neutrophils # Seg Neutrophils # Man 0.3 L Lymphocytes # (Manual) Monocytes # (Manual) 4.9 H INR POC ABG pH 7.320 L POC ABG pCO2 POC ABG pO2 Potassium Chloride Carbon Dioxide BUN Creatinine Glucose POC Glucose 137 H Lactic Acid Calcium Total Bilirubin AST ALT Lactate Dehydrogenase Total Creatine Kinase CK-MB (CK-2) Troponin T Total Protein Albumin Cholesterol LDL Cholesterol Direct HDL Cholesterol Urine WBC (Auto) Crossmatch 03/12/19 03/12/19 03/12/19 05:06 05:57 07:19 WBC RBC Hgb Hct MCV MCHC RDW Plt Count [place] # Seg Neuts % (Manual) Lymphocytes % (Manual) Monocytes % (Manual) Nucleated RBC % Seg Neutrophils # Seg Neutrophils # Man Lymphocytes # (Manual) Monocytes # (Manual) INR POC ABG pH POC ABG pCO2 POC ABG pO2 Potassium 6.6 H* D 6.6 H* Chloride Carbon Dioxide 17 L BUN 66 H Creatinine 5.6 H D Glucose 149 H POC Glucose 165 H Lactic Acid Calcium 6.5 L Total Bilirubin 1.90 H AST 782 H ALT 382 H Lactate Dehydrogenase Total Creatine Kinase CK-MB (CK-2) Troponin T Total Protein 5.7 L Albumin 2.7 L Cholesterol LDL Cholesterol Direct HDL Cholesterol Urine WBC (Auto) Crossmatch 03/12/19 03/12/19 03/12/19 15:24 18:55 23:45 WBC RBC Hgb Hct MCV MCHC RDW Plt Count [place] # Seg Neuts % (Manual) Lymphocytes % (Manual) Monocytes % (Manual) Nucleated RBC % Seg Neutrophils # Seg Neutrophils # Man Lymphocytes # (Manual) Monocytes # (Manual) INR POC ABG pH POC ABG pCO2 POC ABG pO2 Potassium Chloride Carbon Dioxide BUN Creatinine Glucose POC Glucose 167 H 212 H 197 H Lactic Acid Calcium Total Bilirubin AST ALT Lactate Dehydrogenase Total Creatine Kinase CK-MB (CK-2) Troponin T Total Protein Albumin Cholesterol LDL Cholesterol Direct HDL Cholesterol Urine WBC (Auto) Crossmatch 03/13/19 03/13/19 03/13/19 05:37 09:11 09:11 WBC RBC 1.99 L Hgb 6.4 L Hct 18.7 L* MCV MCHC RDW 18.5 H Plt Count 36 L Parker # Seg Neuts % (Manual) Lymphocytes % (Manual) Monocytes % (Manual) Nucleated RBC % Seg Neutrophils # Seg Neutrophils # Man Lymphocytes # (Manual) Monocytes # (Manual) INR POC ABG pH POC ABG pCO2 POC ABG pO2 Potassium Chloride Carbon Dioxide BUN 52 H Creatinine 5.5 H Glucose 235 H POC Glucose 250 H Lactic Acid Calcium 6.2 L Total Bilirubin AST ALT Lactate Dehydrogenase Total Creatine Kinase CK-MB (CK-2) Troponin T Total Protein Albumin Cholesterol LDL Cholesterol Direct HDL Cholesterol Urine WBC (Auto) Crossmatch 03/13/19 03/13/19 03/13/19 11:06 12:38 18:11 WBC RBC 2.07 L Hgb 6.6 L Hct 19.6 L* MCV 95 H MCHC RDW 18.5 H Plt Count 33 L [place] # Seg Neuts % (Manual) Lymphocytes % (Manual) Monocytes % (Manual) Nucleated RBC % Seg Neutrophils # Seg Neutrophils # Man Lymphocytes # (Manual) Monocytes # (Manual) INR POC ABG pH POC ABG pCO2 POC ABG pO2 Potassium Chloride Carbon Dioxide BUN Creatinine Glucose POC Glucose 268 H 255 H Lactic Acid Calcium Total Bilirubin AST ALT Lactate Dehydrogenase Total Creatine Kinase CK-MB (CK-2) Troponin T Total Protein Albumin Cholesterol LDL Cholesterol Direct HDL Cholesterol Urine WBC (Auto) Crossmatch 03/13/19 03/13/19 03/13/19 19:12 20:58 23:49 WBC RBC Hgb Hct MCV MCHC RDW Plt Count [place] # Seg Neuts % (Manual) Lymphocytes % (Manual) Monocytes % (Manual) Nucleated RBC % Seg Neutrophils # Seg Neutrophils # Man Lymphocytes # (Manual) Monocytes # (Manual) INR POC ABG pH 7.466 H POC ABG pCO2 POC ABG pO2 Potassium Chloride Carbon Dioxide BUN Creatinine Glucose POC Glucose 289 H Lactic Acid Calcium Total Bilirubin AST ALT Lactate Dehydrogenase Total Creatine Kinase CK-MB (CK-2) Troponin T Total Protein Albumin Cholesterol LDL Cholesterol Direct HDL Cholesterol Urine WBC (Auto) Crossmatch See Detail 03/14/19 03/14/19 03/14/19 05:51 11:39 13:43 WBC 14.0 H RBC 2.78 L Hgb 8.9 L Hct 26.0 L D MCV MCHC RDW 17.9 H Plt Count 42 L Parker # Seg Neuts % (Manual) 2.0 L Lymphocytes % (Manual) 84.0 H Monocytes % (Manual) 13.0 H Nucleated RBC % Seg Neutrophils # Seg Neutrophils # Man 0.3 L Lymphocytes # (Manual) 11.8 H Monocytes # (Manual) 1.8 H INR POC ABG pH POC ABG pCO2 POC ABG pO2 Potassium Chloride Carbon Dioxide BUN Creatinine Glucose POC Glucose 305 H 283 H Lactic Acid Calcium Total Bilirubin AST ALT Lactate Dehydrogenase Total Creatine Kinase CK-MB (CK-2) Troponin T Total Protein Albumin Cholesterol LDL Cholesterol Direct HDL Cholesterol Urine WBC (Auto) Crossmatch 03/14/19 03/15/19 03/15/19 18:12 00:43 04:24 WBC RBC Hgb Hct MCV MCHC RDW Plt Count [place] # Seg Neuts % (Manual) Lymphocytes % (Manual) Monocytes % (Manual) Nucleated RBC % Seg Neutrophils # Seg Neutrophils # Man Lymphocytes # (Manual) Monocytes # (Manual) INR POC ABG pH 7.497 H POC ABG pCO2 34.0 L POC ABG pO2 Potassium Chloride Carbon Dioxide BUN Creatinine Glucose POC Glucose 313 H 236 H Lactic Acid Calcium Total Bilirubin AST ALT Lactate Dehydrogenase Total Creatine Kinase CK-MB (CK-2) Troponin T Total Protein Albumin Cholesterol LDL Cholesterol Direct HDL Cholesterol Urine WBC (Auto) Crossmatch 03/15/19 03/15/19 03/15/19 07:15 07:15 07:24 WBC 16.1 H RBC 2.50 L Hgb 8.1 L Hct 23.4 L MCV MCHC 35 H RDW 18.5 H Plt Count 42 L [place] # Seg Neuts % (Manual) 2.0 L Lymphocytes % (Manual) 41.0 H Monocytes % (Manual) 11.0 H Nucleated RBC % Seg Neutrophils # Seg Neutrophils # Man 0.3 L Lymphocytes # (Manual) 6.6 H Monocytes # (Manual) 1.8 H INR POC ABG pH POC ABG pCO2 POC ABG pO2 Potassium Chloride 96.0 L Carbon Dioxide BUN 47 H Creatinine 5.0 H Glucose 287 H POC Glucose 285 H Lactic Acid Calcium 7.2 L D Total Bilirubin AST 522 H ALT 474 H Lactate Dehydrogenase Total Creatine Kinase CK-MB (CK-2) Troponin T Total Protein 5.7 L Albumin 2.4 L Cholesterol LDL Cholesterol Direct HDL Cholesterol Urine WBC (Auto) Crossmatch 03/15/19 03/15/19 03/15/19 11:18 17:12 23:19 WBC RBC Hgb Hct MCV MCHC RDW Plt Count [place] # Seg Neuts % (Manual) Lymphocytes % (Manual) Monocytes % (Manual) Nucleated RBC % Seg Neutrophils # Seg Neutrophils # Man Lymphocytes # (Manual) Monocytes # (Manual) INR POC ABG pH POC ABG pCO2 POC ABG pO2 Potassium Chloride Carbon Dioxide BUN Creatinine Glucose POC Glucose 287 H 221 H 297 H Lactic Acid Calcium Total Bilirubin AST ALT Lactate Dehydrogenase Total Creatine Kinase CK-MB (CK-2) Troponin T Total Protein Albumin Cholesterol LDL Cholesterol Direct HDL Cholesterol Urine WBC (Auto) Crossmatch 03/16/19 03/16/19 03/16/19 03:49 05:26 11:26 WBC RBC Hgb Hct MCV MCHC RDW Plt Count [place] # Seg Neuts % (Manual) Lymphocytes % (Manual) Monocytes % (Manual) Nucleated RBC % Seg Neutrophils # Seg Neutrophils # Man Lymphocytes # (Manual) Monocytes # (Manual) INR POC ABG pH 7.487 H POC ABG pCO2 34.3 L POC ABG pO2 254 H Potassium Chloride Carbon Dioxide BUN Creatinine Glucose POC Glucose 271 H 298 H Lactic Acid Calcium Total Bilirubin AST ALT Lactate Dehydrogenase Total Creatine Kinase CK-MB (CK-2) Troponin T Total Protein Albumin Cholesterol LDL Cholesterol Direct HDL Cholesterol Urine WBC (Auto) Crossmatch 03/16/19 03/16/19 03/17/19 17:55 23:47 04:08 WBC RBC Hgb Hct MCV MCHC RDW Plt Count [place] # Seg Neuts % (Manual) Lymphocytes % (Manual) Monocytes % (Manual) Nucleated RBC % Seg Neutrophils # Seg Neutrophils # Man Lymphocytes # (Manual) Monocytes # (Manual) INR POC ABG pH 7.491 H POC ABG pCO2 31.1 L POC ABG pO2 70 L Potassium Chloride Carbon Dioxide BUN Creatinine Glucose POC Glucose 304 H 260 H Lactic Acid Calcium Total Bilirubin AST ALT Lactate Dehydrogenase Total Creatine Kinase CK-MB (CK-2) Troponin T Total Protein Albumin Cholesterol LDL Cholesterol Direct HDL Cholesterol Urine WBC (Auto) Crossmatch 03/17/19 03/17/19 03/17/19 05:30 05:30 05:55 WBC 18.8 H RBC 2.13 L Hgb 6.9 L Hct 20.0 L MCV MCHC 35 H RDW 18.4 H Plt Count 34 L [place] # Seg Neuts % (Manual) Lymphocytes % (Manual) Monocytes % (Manual) Nucleated RBC % Seg Neutrophils # Seg Neutrophils # Man Lymphocytes # (Manual) Monocytes # (Manual) INR POC ABG pH POC ABG pCO2 POC ABG pO2 Potassium 3.5 L Chloride 96.6 L Carbon Dioxide BUN 86 H Creatinine 7.4 H Glucose 222 H POC Glucose 218 H Lactic Acid Calcium 6.9 L Total Bilirubin AST ALT Lactate Dehydrogenase Total Creatine Kinase CK-MB (CK-2) Troponin T Total Protein Albumin Cholesterol LDL Cholesterol Direct HDL Cholesterol Urine WBC (Auto) Crossmatch 03/17/19 03/17/19 03/17/19 12:09 13:06 17:37 WBC RBC Hgb Hct MCV MCHC RDW Plt Count [place] # Seg Neuts % (Manual) Lymphocytes % (Manual) Monocytes % (Manual) Nucleated RBC % Seg Neutrophils # Seg Neutrophils # Man Lymphocytes # (Manual) Monocytes # (Manual) INR POC ABG pH POC ABG pCO2 POC ABG pO2 Potassium Chloride Carbon Dioxide BUN Creatinine Glucose POC Glucose 246 H 253 H Lactic Acid Calcium Total Bilirubin AST ALT Lactate Dehydrogenase Total Creatine Kinase CK-MB (CK-2) Troponin T Total Protein Albumin Cholesterol LDL Cholesterol Direct HDL Cholesterol Urine WBC (Auto) Crossmatch See Detail 03/18/19 03/18/19 03/18/19 00:06 04:49 05:43 WBC RBC Hgb Hct MCV MCHC RDW Plt Count [place] # Seg Neuts % (Manual) Lymphocytes % (Manual) Monocytes % (Manual) Nucleated RBC % Seg Neutrophils # Seg Neutrophils # Man Lymphocytes # (Manual) Monocytes # (Manual) INR POC ABG pH 7.569 H POC ABG pCO2 30.6 L POC ABG pO2 Potassium Chloride Carbon Dioxide BUN Creatinine Glucose POC Glucose 233 H 310 H Lactic Acid Calcium Total Bilirubin AST ALT Lactate Dehydrogenase Total Creatine Kinase CK-MB (CK-2) Troponin T Total Protein Albumin Cholesterol LDL Cholesterol Direct HDL Cholesterol Urine WBC (Auto) Crossmatch 03/18/19 03/18/19 03/18/19 05:45 12:09 17:43 WBC 28.3 H RBC 2.50 L Hgb 8.1 L Hct 23.4 L MCV MCHC 35 H RDW 17.7 H Plt Count 36 L [place] # Seg Neuts % (Manual) 0 L Lymphocytes % (Manual) 4.0 L Monocytes % (Manual) Nucleated RBC % 1.0 H Seg Neutrophils # Seg Neutrophils # Man 0.0 L Lymphocytes # (Manual) 1.1 L Monocytes # (Manual) 1.4 H INR POC ABG pH POC ABG pCO2 POC ABG pO2 Potassium Chloride Carbon Dioxide BUN Creatinine Glucose POC Glucose 258 H 252 H Lactic Acid Calcium Total Bilirubin AST ALT Lactate Dehydrogenase Total Creatine Kinase CK-MB (CK-2) Troponin T Total Protein Albumin Cholesterol LDL Cholesterol Direct HDL Cholesterol Urine WBC (Auto) Crossmatch 03/19/19 03/19/19 03/19/19 00:04 06:15 06:15 WBC RBC Hgb Hct MCV MCHC RDW Plt Count [place] # Seg Neuts % (Manual) Lymphocytes % (Manual) Monocytes % (Manual) Nucleated RBC % Seg Neutrophils # Seg Neutrophils # Man Lymphocytes # (Manual) Monocytes # (Manual) INR POC ABG pH POC ABG pCO2 POC ABG pO2 Potassium Chloride 96.7 L Carbon Dioxide BUN 60 H Creatinine 5.4 H Glucose 249 H POC Glucose 215 H Lactic Acid Calcium 7.6 L Total Bilirubin AST ALT Lactate Dehydrogenase 853 H Total Creatine Kinase CK-MB (CK-2) Troponin T Total Protein Albumin Cholesterol LDL Cholesterol Direct HDL Cholesterol Urine WBC (Auto) Crossmatch 03/19/19 03/19/19 03/19/19 06:17 12:51 18:18 WBC RBC Hgb Hct MCV MCHC RDW Plt Count [place] # Seg Neuts % (Manual) Lymphocytes % (Manual) Monocytes % (Manual) Nucleated RBC % Seg Neutrophils # Seg Neutrophils # Man Lymphocytes # (Manual) Monocytes # (Manual) INR POC ABG pH POC ABG pCO2 POC ABG pO2 Potassium Chloride Carbon Dioxide BUN Creatinine Glucose POC Glucose 301 H 278 H 252 H Lactic Acid Calcium Total Bilirubin AST ALT Lactate Dehydrogenase Total Creatine Kinase CK-MB (CK-2) Troponin T Total Protein Albumin Cholesterol LDL Cholesterol Direct HDL Cholesterol Urine WBC (Auto) Crossmatch 03/19/19 03/20/19 03/20/19 23:58 04:45 04:45 WBC 39.9 H RBC 2.51 L Hgb 8.0 L Hct 24.1 L MCV 96 H MCHC RDW 18.2 H Plt Count 51 L [place] # Seg Neuts % (Manual) Lymphocytes % (Manual) Monocytes % (Manual) Nucleated RBC % Seg Neutrophils # Seg Neutrophils # Man Lymphocytes # (Manual) Monocytes # (Manual) INR POC ABG pH POC ABG pCO2 POC ABG pO2 Potassium Chloride Carbon Dioxide BUN 51 H Creatinine 5.1 H Glucose 221 H POC Glucose 233 H Lactic Acid Calcium 7.8 L Total Bilirubin AST ALT Lactate Dehydrogenase Total Creatine Kinase CK-MB (CK-2) Troponin T Total Protein Albumin Cholesterol LDL Cholesterol Direct HDL Cholesterol Urine WBC (Auto) Crossmatch 03/20/19 03/20/19 03/20/19 05:52 11:43 17:48 WBC RBC Hgb Hct MCV MCHC RDW Plt Count [place] # Seg Neuts % (Manual) Lymphocytes % (Manual) Monocytes % (Manual) Nucleated RBC % Seg Neutrophils # Seg Neutrophils # Man Lymphocytes # (Manual) Monocytes # (Manual) INR POC ABG pH POC ABG pCO2 POC ABG pO2 Potassium Chloride Carbon Dioxide BUN Creatinine Glucose POC Glucose 256 H 316 H 286 H Lactic Acid Calcium Total Bilirubin AST ALT Lactate Dehydrogenase Total Creatine Kinase CK-MB (CK-2) Troponin T Total Protein Albumin Cholesterol LDL Cholesterol Direct HDL Cholesterol Urine WBC (Auto) Crossmatch 03/21/19 03/21/19 03/21/19 00:17 06:21 08:00 WBC RBC Hgb Hct MCV MCHC RDW Plt Count [place] # Seg Neuts % (Manual) Lymphocytes % (Manual) Monocytes % (Manual) Nucleated RBC % Seg Neutrophils # Seg Neutrophils # Man Lymphocytes # (Manual) Monocytes # (Manual) INR POC ABG pH POC ABG pCO2 POC ABG pO2 Potassium Chloride Carbon Dioxide BUN Creatinine Glucose POC Glucose 212 H 256 H 285 H Lactic Acid Calcium Total Bilirubin AST ALT Lactate Dehydrogenase Total Creatine Kinase CK-MB (CK-2) Troponin T Total Protein Albumin Cholesterol LDL Cholesterol Direct HDL Cholesterol Urine WBC (Auto) Crossmatch 03/21/19 03/21/19 03/21/19 11:15 17:50 23:27 WBC RBC Hgb Hct MCV MCHC RDW Plt Count Parker # Seg Neuts % (Manual) Lymphocytes % (Manual) Monocytes % (Manual) Nucleated RBC % Seg Neutrophils # Seg Neutrophils # Man Lymphocytes # (Manual) Monocytes # (Manual) INR POC ABG pH POC ABG pCO2 POC ABG pO2 Potassium Chloride Carbon Dioxide BUN Creatinine Glucose POC Glucose 255 H 263 H 202 H Lactic Acid Calcium Total Bilirubin AST ALT Lactate Dehydrogenase Total Creatine Kinase CK-MB (CK-2) Troponin T Total Protein Albumin Cholesterol LDL Cholesterol Direct HDL Cholesterol Urine WBC (Auto) Crossmatch 03/22/19 03/22/19 05:43 11:50 WBC RBC Hgb Hct MCV MCHC RDW Plt Count Parker # Seg Neuts % (Manual) Lymphocytes % (Manual) Monocytes % (Manual) Nucleated RBC % Seg Neutrophils # Seg Neutrophils # Man Lymphocytes # (Manual) Monocytes # (Manual) INR POC ABG pH POC ABG pCO2 POC ABG pO2 Potassium Chloride Carbon Dioxide BUN Creatinine Glucose POC Glucose 254 H 241 H Lactic Acid Calcium Total Bilirubin AST ALT Lactate Dehydrogenase Total Creatine Kinase CK-MB (CK-2) Troponin T Total Protein Albumin Cholesterol LDL Cholesterol Direct HDL Cholesterol Urine WBC (Auto) Crossmatch Allied health notes reviewed: nursing
[2019-03-22] MEDS ORDERED: SUBLIMAZE IV PRN (13:53)
[2019-03-22 14:12] LABS: Hematocrit 21.7 % (35.5-45.6); Hemoglobin 7.3 gm/dl (11.8-15.2); Mean Corpuscular HGB Conc 34 % (32-34); Mean Corpuscular Volume 95 fl (84-94); Red Blood Count 2.29 M/mm3 (3.65-5.03)
[2019-03-22 14:22] LABS: Platelet Count 45 K/mm3 (140-440)
[2019-03-22 15:14] LABS: Basophils % (Manual) 0 % (0.0-1.8); Eosinophils % (Manual) 0 % (0.0-4.3); Total Cells Counted 100
[2019-03-22 15:15] LABS: Platelet Estimate Consistent w Auto; RBC Morphology Normal
[2019-03-22] MEDS: fentaNYL DRIP Premix 2,000 MCG/100 ML BAG IV SCH (16:48)
[2019-03-23 04:53] LABS: Hematocrit 22.5 % (35.5-45.6); Hemoglobin 7.5 gm/dl (11.8-15.2); Mean Corpuscular HGB Conc 33 % (32-34); Mean Corpuscular Volume 96 fl (84-94); Red Blood Count 2.34 M/mm3 (3.65-5.03); Red Cell Distribution Width 18.4 % (13.2-15.2)
[2019-03-23 04:56] LABS: Platelet Count 46 K/mm3 (140-440)
--- NOTE | 2019-03-23 05:56 | Hem/Onc Progress Note ---
Assessment and Plan 1. Anemia, leukopenia, thrombocytopenia. Peripheral smear mentions blasts. Flow - leukemia - verbal infor dr mai 2. CK was elevated, - LDH. - uric acid. As per the information available; 1. History of diabetes. 2. History of hypertension. 3. Coronary artery disease. 4. History of dental pain recently. 5. The patient had a cardiac arrest, status post cardiopulmonary resuscitation. 6. The patient is intubated. 7. Pericardial effusion. 8. Neurology note mentions semi-coma. We will follow the patient during inpatient stay. flow cytometry result - verbal info Dr Mai - AML?? - BMBx for subtyping. pt has poor Performance status - hospice an option on 03/22 - d/w daughter - his CONTROL DIRECTOR status will help us decide- 03/23 - neurology note mentions semi-coma - Patient Problems (1) Leukocytosis Current Visit: Yes Status: Acute Subjective Date of service: 03/23/19 Principal diagnosis: Acute leukemia Interval history: on vent Objective - Exam Narrative Exam: Pain - pt non verbal General appearance intubated Performance status needs total care Eyes - no icterus ENT intubated LNs cervical not palpable Neck - not able to evalute fully Respiratory Normal Breath sounds - decreased air entry CVS S1 S2 + Extremities normal temperature General GI Soft Rectal deferred male - deferred Skin warm Musculoskeletal not moving Neurologically non verbal - on vent - Constitutional Vitals: Last Vital Signs Temp 101.9 F H 03/23/19 03:26 Pulse 104 H 03/23/19 05:31 Resp 33 H 03/23/19 05:31 BP 121/52 03/23/19 05:31 Pulse Ox 95 03/23/19 05:31 - Labs Lab Results: Laboratory Results - last 24 hr 03/22/19 03/22/19 03/22/19 11:50 13:50 13:50 WBC 23.3 H RBC 2.29 L Hgb 7.3 L Hct 21.7 L MCV 95 H MCH 32 MCHC 34 RDW 18.0 H Plt Count 45 L [place] % (Auto) Heading Maker Add Manual Diff Complete Total Counted 100 Seg Neutrophils % Heading Maker Seg Neuts % (Manual) 1.0 L Band Neutrophils % 0 Lymphocytes % (Manual) 94.0 H Reactive Lymphs % (Man) 0 Monocytes % (Manual) 5.0 Eosinophils % (Manual) 0 Basophils % (Manual) 0 Metamyelocytes % 0 Myelocytes % 0 Promyelocytes % 0 Blast Cells % 0 Nucleated RBC % 3.0 H Seg Neutrophils # Man 0.2 L Band Neutrophils # 0.0 Lymphocytes # (Manual) 21.9 H Abs React Lymphs (Man) 0.0 Monocytes # (Manual) 1.2 H Eosinophils # (Manual) 0.0 Basophils # (Manual) 0.0 Metamyelocytes # 0.0 Myelocytes # 0.0 Promyelocytes # 0.0 Blast Cells # 0.0 WBC Morphology Not Reportable Hypersegmented Neuts Not Reportable Hyposegmented Neuts Not Reportable Hypogranular Neuts Not Reportable Smudge Cells Not Reportable Toxic Granulation Not Reportable Toxic Vacuolation Not Reportable Dohle Bodies Not Reportable Pelger-Huet Anomaly Not Reportable Roque Rods Not Reportable Platelet Estimate Consistent w auto Clumped Platelets Not Reportable Plt Clumps, EDTA Not Reportable Large Platelets Not Reportable Giant Platelets Not Reportable Platelet Satelliting Not Reportable Plt Morphology Comment Not Reportable RBC Morphology Normal Dimorphic RBCs Not Reportable Polychromasia Not Reportable Hypochromasia Not Reportable Poikilocytosis Not Reportable Anisocytosis Not Reportable Microcytosis Not Reportable Macrocytosis Not Reportable Spherocytes Not Reportable Pappenheimer Bodies Not Reportable Sickle Cells Not Reportable Target Cells Not Reportable Tear Drop Cells Not Reportable Ovalocytes Not Reportable Helmet Cells Not Reportable Andersen-[place] Bodies Not Reportable [place] Rings Not Reportable Violette Cells Not Reportable Bite Cells Not Reportable Crenated Cell Not Reportable Elliptocytes Not Reportable Acanthocytes (Spur) Not Reportable Rouleaux Not Reportable Hemoglobin C Crystals Not Reportable Schistocytes Not Reportable Malaria parasites Not Reportable Matt Bodies Not Reportable Hem Pathologist Commnt No Sodium Potassium Chloride Carbon Dioxide Anion Gap BUN Creatinine Estimated GFR BUN/Creatinine Ratio Glucose POC Glucose 241 H Lactic Acid Calcium C-Reactive Protein 20.60 H 03/22/19 03/22/19 03/22/19 13:50 18:13 23:58 WBC RBC Hgb Hct MCV MCH MCHC RDW Plt Count [place] % (Auto) Add Manual Diff Total Counted Seg Neutrophils % Seg Neuts % (Manual) Band Neutrophils % Lymphocytes % (Manual) Reactive Lymphs % (Man) Monocytes % (Manual) Eosinophils % (Manual) Basophils % (Manual) Metamyelocytes % Myelocytes % Promyelocytes % Blast Cells % Nucleated RBC % Seg Neutrophils # Man Band Neutrophils # Lymphocytes # (Manual) Abs React Lymphs (Man) Monocytes # (Manual) Eosinophils # (Manual) Basophils # (Manual) Metamyelocytes # Myelocytes # Promyelocytes # Blast Cells # WBC Morphology Hypersegmented Neuts Hyposegmented Neuts Hypogranular Neuts Smudge Cells Toxic Granulation Toxic Vacuolation Dohle Bodies Pelger-Huet Anomaly Roque Rods Platelet Estimate Clumped Platelets Plt Clumps, EDTA Large Platelets Giant Platelets Platelet Satelliting Plt Morphology Comment RBC Morphology Dimorphic RBCs Polychromasia Hypochromasia Poikilocytosis Anisocytosis Microcytosis Macrocytosis Spherocytes Pappenheimer Bodies Sickle Cells Target Cells Tear Drop Cells Ovalocytes Helmet Cells Andersen-Courtland Bodies [place] Rings Violette Cells Bite Cells Crenated Cell Elliptocytes Acanthocytes (Spur) Rouleaux Hemoglobin C Crystals Schistocytes Malaria parasites Matt Bodies Hem Pathologist Commnt Sodium Potassium Chloride Carbon Dioxide Anion Gap BUN Creatinine Estimated GFR BUN/Creatinine Ratio Glucose POC Glucose 194 H 190 H Lactic Acid 1.70 Calcium C-Reactive Protein 03/23/19 03/23/19 03/23/19 04:00 04:10 05:26 WBC 33.9 H RBC 2.34 L Hgb 7.5 L Hct 22.5 L MCV 96 H MCH 32 MCHC 33 RDW 18.4 H Plt Count 46 L [place] % (Auto) Add Manual Diff Total Counted Seg Neutrophils % Seg Neuts % (Manual) Band Neutrophils % Lymphocytes % (Manual) Reactive Lymphs % (Man) Monocytes % (Manual) Eosinophils % (Manual) Basophils % (Manual) Metamyelocytes % Myelocytes % Promyelocytes % Blast Cells % Nucleated RBC % Seg Neutrophils # Man Band Neutrophils # Lymphocytes # (Manual) Abs React Lymphs (Man) Monocytes # (Manual) Eosinophils # (Manual) Basophils # (Manual) Metamyelocytes # Myelocytes # Promyelocytes # Blast Cells # WBC Morphology Hypersegmented Neuts Hyposegmented Neuts Hypogranular Neuts Smudge Cells Toxic Granulation Toxic Vacuolation Dohle Bodies Pelger-Huet Anomaly Roque Rods Platelet Estimate Clumped Platelets Plt Clumps, EDTA Large Platelets Giant Platelets Platelet Satelliting Plt Morphology Comment RBC Morphology Dimorphic RBCs Polychromasia Hypochromasia Poikilocytosis Anisocytosis Microcytosis Macrocytosis Spherocytes Pappenheimer Bodies Sickle Cells Target Cells Tear Drop Cells Ovalocytes Helmet Cells Andersen-Courtland Bodies [place] Rings Violette Cells Bite Cells Crenated Cell Elliptocytes Acanthocytes (Spur) Rouleaux Hemoglobin C Crystals Schistocytes Malaria parasites Matt Bodies Hem Pathologist Commnt Sodium 141 Potassium 4.9 Chloride 99.3 Carbon Dioxide 23 Anion Gap 24 BUN 83 H Creatinine 7.3 H Estimated GFR 8 BUN/Creatinine Ratio 11 Glucose 135 H POC Glucose 152 H Lactic Acid Calcium 8.0 L C-Reactive Protein Medications & Allergies - Medications Allergies/Adverse Reactions: Allergies No Known Allergies Allergy (Verified 03/10/19 17:37) Home Medications: Home Medications Medication Instructions Recorded Confirmed Last Taken Type Allopurinol [Zyloprim] 300 mg PO DAILY 03/10/19 03/10/19 Unknown History Aspirin [Adult Aspirin] 81 mg PO DAILY 03/10/19 03/10/19 Unknown History Atorvastatin [Lipitor Tab] 80 mg PO DAILY 03/10/19 03/10/19 Unknown History Carvedilol [Coreg] 12.5 mg PO BID 03/10/19 03/10/19 Unknown History Clopidogrel [Plavix] 75 mg PO DAILY 03/10/19 03/10/19 Unknown History Gabapentin [Neurontin] 300 mg PO BID 03/10/19 03/10/19 Unknown History Insulin Lispro Protamin/Lispro 33 unit SQ BID 03/10/19 03/10/19 Unknown History [Humalog Mix 75-25 Vial] Lisinopril [Zestril TAB] 10 mg PO DAILY 03/10/19 03/10/19 Unknown History Pantoprazole [Protonix] 40 mg PO DAILY 03/10/19 03/10/19 Unknown History Sitagliptin Phosphate [Januvia] 50 mg PO DAILY 03/10/19 03/10/19 Unknown History Active Medications: Generic Name Dose Route Start Last Admin Trade Name Freq PRN Reason Stop Dose Admin Acetaminophen 650 mg 03/11/19 00:40 03/22/19 23:43 Tylenol PO 650 mg Q4H PRN Administration Pain MILD(1-3)/Fever >100.5/[place] Acetaminophen 650 mg 03/11/19 00:40 03/12/19 04:53 Tylenol [place] 650 mg Q4H PRN Administration Pain MILD(1-3)/Fever >100.5/[place] Albumin Human 12.5 gm 03/13/19 09:29 Alburx 25% (Albumin) IV DUKE PRN Hypotension Albuterol 2.5 mg 03/17/19 16:00 03/22/19 23:37 Proventil IH 2.5 mg Q8HRT ROXANNE Administration Lipase/Protease/Amylase 1 each 03/15/19 13:[address] 10,500 Unit FEEDTUBE PRN PRN For Clogged Feeding Tube Dextrose 50 ml 03/11/19 00:44 D50w (25gm) Syringe IV PRN PRN Hypoglycemia Fentanyl 25 mcg 03/22/19 13:53 03/22/19 16:25 Sublimaze IV 25 mcg Q2H PRN Administration Pain, Moderate (4-6) Hydrophilic Ointment 1 applic 03/10/19 19:50 Vaseline Lip Therapy TP Q2HR PRN Dry Lips Propofol 1,000 mg in 100 mls @ 4.082 mls/hr 03/10/19 20:00 03/11/19 14:30 Diprivan 10 Mg/Ml IV Infused TITR ROXANNE Titration Protocol 5 MCG/KG/MIN Norepinephrine 4 mg in 250 mls @ 7.5 mls/hr 03/10/19 21:00 03/21/19 14:05 Levophed Drip 4 Mg/Ns 250 Ml IV 0 mcg/min TITR ROXANNE 0 mls/hr Titration Protocol 2 MCG/MIN Fentanyl Citrate 2,000 mcg in 100 mls @ 6.804 mls/hr 03/11/19 08:00 03/22/19 16:48 Fentanyl Drip Premix IV 1 mcg/kg/hr TITR ROXANNE 6.804 mls/hr Administration Protocol 1 MCG/KG/HR Ceftriaxone Sodium 2 gm in 100 mls @ 200 mls/hr 03/11/19 13:00 03/22/19 23:43 Rocephin/Ns 2 Gm/100 Ml IV 200 mls/hr Q12HR ROXANNE Administration Protocol Sodium Chloride 100 mls @ 999 mls/hr 03/15/19 08:11 Nacl 0.9% IV DUKE PRN Hypotension Insulin Glargine 40 units 03/19/19 08:00 03/22/19 09:04 Lantus SUB-Q 40 units QAMDIAB ROXANNE Administration Insulin Human Lispro 0 unit 03/11/19 06:00 03/22/19 18:11 Humalog SUB-Q 3 unit Q6HR ROXANNE Administration Protocol Lansoprazole 30 mg 03/18/19 10:00 03/22/19 09:05 Prevacid Solutab FEEDTUBE 30 mg QDAY ROXANNE Administration Midodrine 10 mg 03/19/19 16:00 03/22/19 16:48 Proamatine PO 10 mg TID@0800,1200,1600 ROXANNE Administration Multi-Ingred Cream/Lotion/Oil/Oint 1 applic 03/10/19 19:50 Artificial Tears Ophth Oint OU Q4HR PRN Dry Eye(s) Ondansetron HCl 4 mg 03/11/19 00:40 03/19/19 21:53 Zofran IV 4 mg Q8H PRN Administration Nausea And Vomiting Simple Syrup 15 ml 03/15/19 13:21 Simple Syrup FEEDTUBE PRN PRN Hypoglycemia Simple Syrup 30 ml 03/15/19 13:21 Simple Syrup FEEDTUBE PRN PRN Hypoglycemia Sodium Bicarbonate 325 mg 03/15/19 13:21 Sodium Bicarbonate FEEDTUBE PRN PRN For Clogged Feeding Tube Sodium Chloride 10 ml 03/11/19 10:00 03/22/19 10:11 Sodium Chloride Flush Syringe 10 Ml IV 10 ml BID ROXANNE Administration Sodium Chloride 10 ml 03/11/19 00:40 Sodium Chloride Flush Syringe 10 Ml IV PRN PRN LINE FLUSH
[2019-03-23] MEDS: fentaNYL DRIP Premix 2,000 MCG/100 ML BAG IV SCH ×2 (07:18→17:02)
[2019-03-23] MEDS: HumaLOG SUB-Q SCH ×4 (07:19→18:46)
[2019-03-23] MEDS: SODIUM CHLORIDE FLUSH SYRINGE 10 ML IV SCH ×3 (07:20→21:42)
--- NOTE | 2019-03-23 08:06 | Progress Note ---
Assessment and Plan - Patient Problems (1) Acute on chronic renal failure Current Visit: Yes Status: Acute Qualifiers: Chronic kidney disease stage: stage 3 (moderate) Plan to address problem: Likely secondary to acute tubular necrosis. Patient remains anuric. ANCA studies negative, complements within normal limits. Will maintain on MWF inpatient HD schedule with extra isolated UF sessions as necessary . (2) Hyperkalemia Current Visit: Yes Status: Acute Plan to address problem: Potassium levels stabilized on dialysis. (3) Cardiopulmonary arrest with successful resuscitation Current Visit: Yes Status: Acute Plan to address problem: Return of spontaneous circulation in the emergency room about 2 doses of epinephrine. Patient is on Levothroid at this time and cardiology evaluation has been reviewed and noted. Patient also had a repeat echocardiogram done and reviewed with EF 40-45% and impaired relaxation noted. We'll follow up with further recommendations from cardiology standpoint. (4) Sepsis Current Visit: Yes Status: Acute Qualifiers: Sepsis type: Streptococcus group B Qualified Code(s): A40.1 - Sepsis due to streptococcus, group B Plan to address problem: Streptococcal bacteremia noted on initial blood cultures. Patient is on the antibiotics at this time per infectious disease recommendations. Please ensure that antibiotics are dosed appropriately for his decreased creatinine clearance and renal function. (5) Metabolic acidosis Current Visit: Yes Status: Acute Plan to address problem: Will address with hemodialysis. Bicarbonate gtt has been discontinued. (6) Hypotension Current Visit: Yes Status: Acute Qualifiers: Hypotension type: unspecified hypotension type Qualified Code(s): I95.9 - Hypotension, unspecified Plan to address problem: Patient has now been weaned off pressor support. Will continue to monitor closely. (7) Type 2 diabetes mellitus with diabetic chronic kidney disease Current Visit: Yes Status: Acute Qualifiers: Chronic kidney disease stage: stage 3 (moderate) Plan to address problem: diabetes management per primary attending. Subjective Date of service: 03/23/19 Principal diagnosis: leukemia Interval history: No acute changes overnight. Next hemodialysis session will be set for tomorrow. Patient remains anuric at this time. Objective - Vital Signs Vital signs: Vital Signs - 12hr 03/22/19 03/22/19 03/22/19 20:30 21:00 21:06 Temperature Pulse Rate 95 H 96 H 95 H Pulse Rate [ Anterior Bilateral Throughout] Pulse Rate [ From Monitor] Respiratory 32 H 32 H 32 H Rate Respiratory Rate [Anterior Bilateral Throughout] Blood Pressure 138/46 123/62 123/62 O2 Sat by Pulse 95 92 91 Oximetry 03/22/19 03/22/19 03/22/19 21:30 22:00 22:30 Temperature Pulse Rate 101 H 102 H 102 H Pulse Rate [ Anterior Bilateral Throughout] Pulse Rate [ From Monitor] Respiratory 35 H 37 H 37 H Rate Respiratory Rate [Anterior Bilateral Throughout] Blood Pressure 123/55 150/48 119/55 O2 Sat by Pulse 93 94 94 Oximetry 03/22/19 03/22/19 03/22/19 23:01 23:30 23:33 Temperature 101.6 F H Pulse Rate 101 H 100 H Pulse Rate [ Anterior Bilateral Throughout] Pulse Rate [ From Monitor] Respiratory 36 H 36 H Rate Respiratory Rate [Anterior Bilateral Throughout] Blood Pressure 121/54 140/37 O2 Sat by Pulse 95 94 Oximetry 03/22/19 03/22/19 03/23/19 23:39 23:45 00:00 Temperature Pulse Rate 101 H Pulse Rate [ 104 H 104 H Anterior Bilateral Throughout] Pulse Rate [ 100 H From Monitor] Respiratory 35 H Rate Respiratory 34 H 34 H Rate [Anterior Bilateral Throughout] Blood Pressure 117/66 O2 Sat by Pulse 93 Oximetry 03/23/19 03/23/19 03/23/19 00:30 01:00 01:30 Temperature Pulse Rate 101 H 100 H 101 H Pulse Rate [ Anterior Bilateral Throughout] Pulse Rate [ From Monitor] Respiratory 33 H 33 H 33 H Rate Respiratory Rate [Anterior Bilateral Throughout] Blood Pressure 114/56 100/61 116/50 O2 Sat by Pulse 96 92 93 Oximetry 03/23/19 03/23/19 03/23/19 02:00 02:30 03:00 Temperature Pulse Rate 103 H 104 H 106 H Pulse Rate [ Anterior Bilateral Throughout] Pulse Rate [ From Monitor] Respiratory 32 H 31 H 31 H Rate Respiratory Rate [Anterior Bilateral Throughout] Blood Pressure 120/52 127/59 112/51 O2 Sat by Pulse 91 92 90 Oximetry 03/23/19 03/23/19 03/23/19 03:26 03:31 04:00 Temperature 101.9 F H Pulse Rate 106 H Pulse Rate [ Anterior Bilateral Throughout] Pulse Rate [ 108 H From Monitor] Respiratory 32 H Rate Respiratory Rate [Anterior Bilateral Throughout] Blood Pressure 128/42 O2 Sat by Pulse 92 95 Oximetry 07/04/0403/23/19 03/23/19 04:01 04:09 04:31 Temperature Pulse Rate 105 H 105 H 105 H Pulse Rate [ Anterior Bilateral Throughout] Pulse Rate [ From Monitor] Respiratory 32 H 32 H Rate Respiratory Rate [Anterior Bilateral Throughout] Blood Pressure 109/43 109/43 135/57 O2 Sat by Pulse 92 92 94 Oximetry 03/23/19 03/23/19 03/23/19 05:01 05:31 06:00 Temperature Pulse Rate 102 H 104 H 107 H Pulse Rate [ Anterior Bilateral Throughout] Pulse Rate [ From Monitor] Respiratory 31 H 33 H 35 H Rate Respiratory Rate [Anterior Bilateral Throughout] Blood Pressure 135/57 121/52 137/56 O2 Sat by Pulse 91 95 95 Oximetry - General Appearance General appearance: obese, intubated, frail EENT: ATNC Neck: no JVD, no thyromegaly Respiratory: Present: Decreased Breath Sounds Cardiology: regular, S1S2 Gastrointestinal: normal Integumentary: no rash Neurologic: other (unresponsive, comatose) Musculoskeletal: other (+edema) - Lab 03/23/19 04:10 03/23/19 04:00 Most recent lab results Calcium 8.0 mg/dL (8.4-10.2) L 03/23/19 04:00 Magnesium 1.80 mg/dL (1.7-2.3) 03/17/19 05:30 - Allied health notes Allied health notes reviewed: nursing Medications & Allergies - Medications Allergies/Adverse Reactions: Allergies No Known Allergies Allergy (Verified 03/10/19 17:37) Home Medications: Home Medications Medication Instructions Recorded Confirmed Last Taken Type Allopurinol [Zyloprim] 300 mg PO DAILY 03/10/19 03/10/19 Unknown History Aspirin [Adult Aspirin] 81 mg PO DAILY 03/10/19 03/10/19 Unknown History Atorvastatin [Lipitor Tab] 80 mg PO DAILY 03/10/19 03/10/19 Unknown History Carvedilol [Coreg] 12.5 mg PO BID 03/10/19 03/10/19 Unknown History Clopidogrel [Plavix] 75 mg PO DAILY 03/10/19 03/10/19 Unknown History Gabapentin [Neurontin] 300 mg PO BID 03/10/19 03/10/19 Unknown History Insulin Lispro Protamin/Lispro 33 unit SQ BID 03/10/19 03/10/19 Unknown History [Humalog Mix 75-25 Vial] Lisinopril [Zestril TAB] 10 mg PO DAILY 03/10/19 03/10/19 Unknown History Pantoprazole [Protonix] 40 mg PO DAILY 03/10/19 03/10/19 Unknown History Sitagliptin Phosphate [Januvia] 50 mg PO DAILY 03/10/19 03/10/19 Unknown History Active Medications: Generic Name Dose Route Start Last Admin Trade Name Freq PRN Reason Stop Dose Admin Acetaminophen 650 mg 03/11/19 00:40 03/22/19 23:43 Tylenol PO 650 mg Q4H PRN Administration Pain MILD(1-3)/Fever >100.5/[place] Acetaminophen 650 mg 03/11/19 00:40 03/12/19 04:53 Tylenol [place] 650 mg Q4H PRN Administration Pain MILD(1-3)/Fever >100.5/[place] Albumin Human 12.5 gm 03/13/19 09:29 Alburx 25% (Albumin) IV DUKE PRN Hypotension Albuterol 2.5 mg 03/17/19 16:00 03/22/19 23:37 Proventil IH 2.5 mg Q8HRT ROXANNE Administration Lipase/Protease/Amylase 1 each 03/15/19 13:[address] 10,500 Unit FEEDTUBE PRN PRN For Clogged Feeding Tube Dextrose 50 ml 03/11/19 00:44 D50w (25gm) Syringe IV PRN PRN Hypoglycemia Fentanyl 25 mcg 03/22/19 13:53 03/22/19 16:25 Sublimaze IV 25 mcg Q2H PRN Administration Pain, Moderate (4-6) Hydrophilic Ointment 1 applic 03/10/19 19:50 Vaseline Lip Therapy TP Q2HR PRN Dry Lips Propofol 1,000 mg in 100 mls @ 4.082 mls/hr 03/10/19 20:00 03/11/19 14:30 Diprivan 10 Mg/Ml IV Infused TITR ROXANNE Titration Protocol 5 MCG/KG/MIN Norepinephrine 4 mg in 250 mls @ 7.5 mls/hr 03/10/19 21:00 03/21/19 14:05 Levophed Drip 4 Mg/Ns 250 Ml IV 0 mcg/min TITR ROXANNE 0 mls/hr Titration Protocol 2 MCG/MIN Fentanyl Citrate 2,000 mcg in 100 mls @ 6.804 mls/hr 03/11/19 08:00 03/23/19 07:18 Fentanyl Drip Premix IV 1 mcg/kg/hr TITR ROXANNE 6.804 mls/hr Administration Protocol 1 MCG/KG/HR Ceftriaxone Sodium 2 gm in 100 mls @ 200 mls/hr 03/11/19 13:00 03/22/19 23:43 Rocephin/Ns 2 Gm/100 Ml IV 200 mls/hr Q12HR ROXANNE Administration Protocol Sodium Chloride 100 mls @ 999 mls/hr 03/15/19 08:11 Nacl 0.9% IV DUKE PRN Hypotension Insulin Glargine 40 units 03/19/19 08:00 03/22/19 09:04 Lantus SUB-Q 40 units QAMDIAB ROXANNE Administration Insulin Human Lispro 0 unit 03/11/19 06:00 03/23/19 07:20 Humalog SUB-Q Not Given Q6HR [facility] Protocol Lansoprazole 30 mg 03/18/19 10:00 03/22/19 09:05 Prevacid Solutab FEEDTUBE 30 mg QDAY ROXANNE Administration Midodrine 10 mg 03/19/19 16:00 03/22/19 16:48 Proamatine PO 10 mg TID@0800,1200,1600 [facility] Administration Multi-Ingred Cream/Lotion/Oil/Oint 1 applic 03/10/19 19:50 Artificial Tears Ophth Oint OU Q4HR PRN Dry Eye(s) Ondansetron HCl 4 mg 03/11/19 00:40 03/19/19 21:53 Zofran IV 4 mg Q8H PRN Administration Nausea And Vomiting Simple Syrup 15 ml 03/15/19 13:21 Simple Syrup FEEDTUBE PRN PRN Hypoglycemia Simple Syrup 30 ml 03/15/19 13:21 Simple Syrup FEEDTUBE PRN PRN Hypoglycemia Sodium Bicarbonate 325 mg 03/15/19 13:21 Sodium Bicarbonate FEEDTUBE PRN PRN For Clogged Feeding Tube Sodium Chloride 10 ml 03/11/19 10:00 03/23/19 07:20 Sodium Chloride Flush Syringe 10 Ml IV Not Given BID ROXANNE Sodium Chloride 10 ml 03/11/19 00:40 Sodium Chloride Flush Syringe 10 Ml IV PRN PRN LINE FLUSH
[2019-03-23] MEDS: PROVENTIL IH SCH ×2 (08:30→17:48)
[2019-03-23] MEDS: TYLENOL PO PRN ×2 (08:34→20:03)
[2019-03-23] MEDS: PROAMATINE PO SCH ×3 (08:34→16:18)
[2019-03-23] MEDS: LANTUS SUB-Q SCH (08:35)
[2019-03-23] MEDS: PREVACID SOLUTAB FEEDTUBE SCH (09:56)
[2019-03-23] MEDS: ROCEPHIN/NS 2 GM/100 ML 2 GM/100 ML BAG IV SCH (09:56)
--- NOTE | 2019-03-23 11:55 | Progress Note ---
Assessment and Plan Cultures: Blood culture 03/10/2019 Group-A Strep 2 of 4 bottles Tracheal asp 03/10/2019 poor specimen Blood culture 03/12/2019 no growth today C diff negative 03/14/2019 trach aspirate culture: no growth Assessment: 54 y/o male with history of diabetes, hypertension, chronic kidney disease, coronary artery disease admitted on 03/10/2019 due to a week history of facial/mouth pain (?dental pain) associated with generalized weakness, cold sensation, cough with sputum production and body aches, 48 hour-history of sore throat, in the ED patient went into PEA arrest s/p CPR: 1) Severe Sepsis with PEA arrest and transient shock post arrest: Etiology likely due to GAS bacteremia. Initial CXR and CT chest no consolidations. Now with new fever 101.9 on ceftriaxone ?from AML ?VAP ?drug fever ?central fever. CXR increased left medial pleuroparietal opacity 2) Invasive Group-A Strep bacteremia/toxic shock syndrome: source unclear ?tonsillopharingitis, ?dental abscess, ?early aspiration pneumonia. Blood culture 03/10/2019 Group-A Strep [address] face showed a small right mandibular premolar abscess, poor dentition and chronic sinusitis. TTE no vegetations. On ceftriaxone 3) Acute encephalopathy: not better; post arrest +/- due to infection ? ischemic brain injury. CT head some indistinctness and loss of dean-white matter differentiation and indistinct visualization of the basal ganglia. This is nonspecific finding but may be seen with diffuse hypoxic ischemic brain injury. 4) Acute respiratory failure: intubated. CT chest without contrast shows primo cardial effusion measuring up to 1.4 cm in transverse diameter, posterior atelectasis both lungs. Minimal pleural fluid collection. 5) AML: per peripheral flow cytometry, Discussed with Dr. Cleaning. Extremely poor prognosis. 6) ISMAEL on CKD: renally adjusted meds. Now on HD through fem vas cath 7) Elevated LFTs: probably from shock and sepsis. Recommendations: - repeat blood culture, sputum culture today - stop IV Ceftriaxone for now D13 - start cefepime renally adjusted and vancomycin with PK consult - if family does not agree with hospice, trach/PEG recommended and removal of femoral vas cath Poor prognosis, agree with hospice. Will follow. Marietta Ahuja MD Infectious Diseases [employer] [facility] ([facility] M [phone] O [phone] Subjective Date of service: 03/23/19 Principal diagnosis: leukemia Interval history: Patient remains intubated, no pressors, on fentanyl gtt. High grade fever 101.6 ROS unable to obtain Objective - Exam Narrative Exam: General: sedated intubated in NAD FiO2 45%, p 6 Eyes: anicteric sclerae, moist conjunctivae; no lid-lag; PERRLA HENT: Atraumatic; oropharynx ETT with no sputum, OGT Neck: Trachea midline; ryan swollen neck vs obese body habitus Lungs: ryan coarse BS CV: RRR no murmur Abdomen: Soft, non-tender; obese Extremities: marked ryan leg/hands edema Skin: no rash, ulcers or subcutaneous nodules Psych: unresponsive no agitated. Neuro: unresponsive no agitated Right fem vas cath Left IJ TLC Rectal tube - Constitutional Vitals: Vital Signs Temp Pulse Resp BP Pulse Ox 100.7 F H 94 H 30 H 123/60 95 03/23/19 10:02 03/23/19 11:00 03/23/19 11:00 03/23/19 11:00 03/23/19 11:00 Temperature -Last 24 Hours Temperature 100.7 F Temperature 100.8 F Temperature 101.9 F Temperature 101.6 F Temperature 99.9 F Temperature 99.6 F Temperature 98.8 F - Labs CBC & Chem 7: 03/23/19 04:10 03/23/19 04:00 Labs: Abnormal lab results 03/22/19 03/22/19 03/22/19 Range/Units 11:50 13:50 13:50 WBC 23.3 H (4.5-11.0) K/mm3 RBC 2.29 L (3.65-5.03) M/mm3 Hgb 7.3 L (11.8-15.2) gm/dl Hct 21.7 L (35.5-45.6) % MCV 95 H (84-94) fl RDW 18.0 H (13.2-15.2) % Plt Count 45 L (140-440) K/mm3 Seg Neuts % (Manual) 1.0 L (40.0-70.0) % Lymphocytes % (Manual) 94.0 H (13.4-35.0) % Nucleated RBC % 3.0 H (0.0-0.9) % Seg Neutrophils # Man 0.2 L (1.8-7.7) K/mm3 Lymphocytes # (Manual) 21.9 H (1.2-5.4) K/mm3 Monocytes # (Manual) 1.2 H (0.0-0.8) K/mm3 BUN (9-20) mg/dL Creatinine (0.8-1.5) mg/dL Glucose (75-100) mg/dL POC Glucose 241 H (70-105) Calcium (8.4-10.2) mg/dL C-Reactive Protein 20.60 H (0.00-1.30) mg/dL 03/22/19 03/22/19 03/23/19 Range/Units 18:13 23:58 04:00 WBC (4.5-11.0) K/mm3 RBC (3.65-5.03) M/mm3 Hgb (11.8-15.2) gm/dl Hct (35.5-45.6) % MCV (84-94) fl RDW (13.2-15.2) % Plt Count (140-440) K/mm3 Seg Neuts % (Manual) (40.0-70.0) % Lymphocytes % (Manual) (13.4-35.0) % Nucleated RBC % (0.0-0.9) % Seg Neutrophils # Man (1.8-7.7) K/mm3 Lymphocytes # (Manual) (1.2-5.4) K/mm3 Monocytes # (Manual) (0.0-0.8) K/mm3 BUN 83 H (9-20) mg/dL Creatinine 7.3 H (0.8-1.5) mg/dL Glucose 135 H (75-100) mg/dL POC Glucose 194 H 190 H (70-105) Calcium 8.0 L (8.4-10.2) mg/dL C-Reactive Protein (0.00-1.30) mg/dL 03/23/19 03/23/19 Range/Units 04:10 05:26 WBC 33.9 H (4.5-11.0) K/mm3 RBC 2.34 L (3.65-5.03) M/mm3 Hgb 7.5 L (11.8-15.2) gm/dl Hct 22.5 L (35.5-45.6) % MCV 96 H (84-94) fl RDW 18.4 H (13.2-15.2) % Plt Count 46 L (140-440) K/mm3 Seg Neuts % (Manual) (40.0-70.0) % Lymphocytes % (Manual) (13.4-35.0) % Nucleated RBC % (0.0-0.9) % Seg Neutrophils # Man (1.8-7.7) K/mm3 Lymphocytes # (Manual) (1.2-5.4) K/mm3 Monocytes # (Manual) (0.0-0.8) K/mm3 BUN (9-20) mg/dL Creatinine (0.8-1.5) mg/dL Glucose (75-100) mg/dL POC Glucose 152 H (70-105) Calcium (8.4-10.2) mg/dL C-Reactive Protein (0.00-1.30) mg/dL
[2019-03-23] MEDS ORDERED: .VANCOMYCIN VIAL 1,000 MG in NACL 0.9% 100 ML IV SCH (13:00)
[2019-03-23] MEDS ORDERED: VANCOMYCIN 1,500 MG in NACL 0.9% 500 ML 500 ML IV ONE (13:00)
[2019-03-23] MEDS ORDERED: VANCOMYCIN/NS 1 GM/250 ML 1 GM/250 ML BAG IV SCH (13:00)
[2019-03-23] MEDS: MAXIPIME/NS 1 GM/100 ML 1 GM/100 ML BAG IV SCH (13:19)
--- NOTE | 2019-03-23 14:05 | Progress Note ---
Assessment and Plan Assessment and plan: Patient is a 54 yo man with a history of hypertension, DM type 2, CKD 3 and CAD s/p shents who presented to [facility] ED on 03/10/19 with SOB and cough. Dental pain with ?abscess preceded this illness. He had a PEA cardiac arrest in ED, was successfully resucitated, intubated, stated on vasopressor and admitted to ICU. He had whole body jerking in ED, ?seizure activity. * Initial CT chest wo contrast IMPRESSION: Small pericardial effusion ET in satisfactory position. Atelectasis posterior aspects of both lungs. * Initial CT abd/pelvis wo contrast IMPRESSION: Possible mild right colonic wall thickening and trace free fluid in the right paracolic gutter and pelvis may be infectious, inflammatory or ischemic in etiology. No pneumoperitoneum or focal fluid collection to suggest abscess. Mild pericholecystic edema. No calcified gallstones. If there is concern for cholecystitis, consider follow- up ultrasound and/or nuclear medicine hepatobiliary scan. Small pericardial effusion. Coronary and peripheral arterial disease. 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 Pulmonary following Severe Sepsis with Shock: off Vasopressors. ?Dental abscess vs Group A strep. ID following, continues on abx, No evidence of Endocarditis on TTE Multi system Organ failure, poa Acute combined heart failure, poa: Cardiology is following DM type 2 with hyperglycemia-POA: Lantus and adjust sliding scale Insulin severe Anemia- Transfused 1 units on 03/13/19 and 03/17/19, total of 2 units, monitor cbc closely Thrombocytopenia ?DIC secondary to underlying condition: Hold Antiplatelets Pericardial effusion: Cardiology following ARF/CKD 3 due to ATN, poa with suspected progression to ESRD: on HD, Nephrology is following Morbid obesity, bmi 55.9: Counselling when more awake Severe Protein calorie malnutrition, poa: Technical Support Technician consult Acute Metabolic Encephalopathy: Neurology consulted ?ischemic brain injury Diarrhea-C,DIFF RULED OUT- fecal tube in place SHOCK LIVER-HEPATIC FAILURE-improve bp and follow CAD by hx-POA Sacral Pressure ulcer, poa- Wound care consulted, input noted poor prognosis d/w daughter Macrina and sister Nano at bedside on 03/20/19 d/w Dr. Cleaning on 03/21/19 peripheral flow cytometry suggestive of AML via verbal report from Dr. Hatch, Dr. Cleaning will discuss with daughter White blood count increasing, antibiotics changed by ID CCT 32 minutes History Interval history: Patient was seen and examined. Follow-up on current diagnosis Respiratory failure. No overnight events reported to me. Imaging, nursing note, chart, labs and old chart reviewed. It appears he has emesis overnight. Hospitalist Physical - Physical exam Narrative exam: Gen: critically ill appearing, bmi 55.9 HEENT: NCAT, EOMI, PERRL, OP Clear Neck: supple, no adenopathy, no thyromegaly, no JVD CVS/Heart: RRR, normal S1S2, pulses present bilaterally Chest/Lungs: diminished bs bilateral Symmetrical chest expansion, ok air entry bilaterally GI/Abdomen: soft, NTND, good bowel sounds, no guarding or rebound /Bladder: no suprapubic tenderness, no CVA or paraspinal tenderness Extermity/Skin: edema MSK: sedated Neuro: sedated Psych: sedated - Constitutional Vitals: Temp Pulse Resp BP Pulse Ox 99.2 F 89 29 H 145/51 95 03/23/19 12:00 03/23/19 13:30 03/23/19 13:30 03/23/19 13:30 03/23/19 13:30 General appearance: Present: obese Results - Labs CBC & Chem 7: 03/23/19 04:10 03/23/19 04:00 Labs: Laboratory Last Values WBC 33.9 K/mm3 (4.5-11.0) H 03/23/19 04:10 RBC 2.34 M/mm3 (3.65-5.03) L 03/23/19 04:10 Hgb 7.5 gm/dl (11.8-15.2) L 03/23/19 04:10 Hct 22.5 % (35.5-45.6) L 03/23/19 04:10 MCV 96 fl (84-94) H 03/23/19 04:10 MCH 32 pg (28-32) 03/23/19 04:10 MCHC 33 % (32-34) 03/23/19 04:10 RDW 18.4 % (13.2-15.2) H 03/23/19 04:10 Plt Count 46 K/mm3 (140-440) L 03/23/19 04:10 [place] % (Auto) [employer] Production Team Member 03/22/19 13:50 Eos % (Auto) 0.4 % (0.0-4.3) 03/10/19 17:57 [place] # 0.9 K/mm3 (0.0-0.8) H 03/10/19 17:57 Eos # 0.0 K/mm3 (0.0-0.4) 03/10/19 17:57 Baso # 0.0 K/mm3 (0.0-0.1) 03/10/19 17:57 Add Manual Diff Complete 03/22/19 13:50 Total Counted 100 03/22/19 13:50 Seg Neutrophils % [employer] Production Team Member 03/22/19 13:50 Seg Neuts % (Manual) 1.0 % (40.0-70.0) L 03/22/19 13:50 0 % 03/22/19 13:50 94.0 % (13.4-35.0) H 03/22/19 13:50 Reactive Lymphs % (Man) 0 % 03/22/19 13:50 5.0 % (0.0-7.3) 03/22/19 13:50 0 % (0.0-4.3) 03/22/19 13:50 0 % (0.0-1.8) 03/22/19 13:50 0 % 03/22/19 13:50 0 % 03/22/19 13:50 0 % 03/22/19 13:50 0 % 03/22/19 13:50 Nucleated RBC % 3.0 % (0.0-0.9) H 03/22/19 13:50 Seg Neutrophils # 0.1 K/mm3 (1.8-7.7) L 03/10/19 17:57 Seg Neutrophils # Man 0.2 K/mm3 (1.8-7.7) L 03/22/19 13:50 Band Neutrophils # 0.0 K/mm3 03/22/19 13:50 21.9 K/mm3 (1.2-5.4) H 03/22/19 13:50 Abs React Lymphs (Man) 0.0 K/mm3 03/22/19 13:50 1.2 K/mm3 (0.0-0.8) H 03/22/19 13:50 0.0 K/mm3 (0.0-0.4) 03/22/19 13:50 0.0 K/mm3 (0.0-0.1) 03/22/19 13:50 0.0 K/mm3 03/22/19 13:50 0.0 K/mm3 03/22/19 13:50 0.0 K/mm3 03/22/19 13:50 Blast Cells # 0.0 K/mm3 03/22/19 13:50 Pathologist Review 03/10/19 17:57 WBC Morphology Not Reportable 03/22/19 13:50 Hypersegmented Neuts Not Reportable 03/22/19 13:50 Hyposegmented Neuts Not Reportable 03/22/19 13:50 Hypogranular Neuts Not Reportable 03/22/19 13:50 Not Reportable 03/22/19 13:50 Not Reportable 03/22/19 13:50 Not Reportable 03/22/19 13:50 Not Reportable 03/22/19 13:50 Not Reportable 03/22/19 13:50 Not Reportable 03/22/19 13:50 Consistent w auto 03/22/19 13:50 Not Reportable 03/22/19 13:50 Plt Clumps, EDTA Not Reportable 03/22/19 13:50 Not Reportable 03/22/19 13:50 Not Reportable 03/22/19 13:50 Not Reportable 03/22/19 13:50 Plt Morphology Comment Not Reportable 03/22/19 13:50 RBC Morphology Normal 03/22/19 13:50 Dimorphic RBCs Not Reportable 03/22/19 13:50 Not Reportable 03/22/19 13:50 Not Reportable 03/22/19 13:50 Not Reportable 03/22/19 13:50 Not Reportable 03/22/19 13:50 Not Reportable 03/22/19 13:50 Not Reportable 03/22/19 13:50 Not Reportable 03/22/19 13:50 Not Reportable 03/22/19 13:50 Not Reportable 03/22/19 13:50 Not Reportable 03/22/19 13:50 Not Reportable 03/22/19 13:50 Not Reportable 03/22/19 13:50 Not Reportable 03/22/19 13:50 Not Reportable 03/22/19 13:50 Not Reportable 03/22/19 13:50 Not Reportable 03/22/19 13:50 Not Reportable 03/22/19 13:50 Not Reportable 03/22/19 13:50 Not Reportable 03/22/19 13:50 Acanthocytes (Spur) Not Reportable 03/22/19 13:50 Rouleaux Not Reportable 03/22/19 13:50 Not Reportable 03/22/19 13:50 Not Reportable 03/22/19 13:50 Not Reportable 03/22/19 13:50 Not Reportable 03/22/19 13:50 Hem Pathologist Commnt No 03/22/19 13:50 PT 14.4 Sec. (12.2-14.9) 03/10/19 17:57 INR 1.15 (0.87-1.13) H 03/10/19 17:57 APTT 28.8 Sec. (24.2-36.6) 03/10/19 17:57 POC ABG pH 7.398 (7.35-7.45) 03/19/19 03:48 POC ABG pCO2 43.5 (35-45) 03/19/19 03:48 POC ABG pO2 80 (80-105) 03/19/19 03:48 POC ABG HCO3 26.8 (22-26 mml/L) 03/19/19 03:48 POC ABG Total CO2 28 (23-27mmol/L) 03/19/19 03:48 POC ABG O2 Sat 96 03/19/19 03:48 POC ABG Base Excess 2 ((-2) - (+3)mmol/L) 03/19/19 03:48 VBG pH 7.381 (7.320-7.420) 03/10/19 17:57 45 % 03/19/19 03:48 Sodium 141 mmol/L (137-145) 03/23/19 04:00 Potassium 4.9 mmol/L (3.6-5.0) 03/23/19 04:00 Chloride 99.3 mmol/L (98-107) 03/23/19 04:00 Carbon Dioxide 23 mmol/L (22-30) 03/23/19 04:00 24 mmol/L 03/23/19 04:00 BUN 83 mg/dL (9-20) H 03/23/19 04:00 7.3 mg/dL (0.8-1.5) H 03/23/19 04:00 Estimated GFR 8 ml/min 03/23/19 04:00 11 % 03/23/19 04:00 Glucose 135 mg/dL (75-100) H 03/23/19 04:00 POC Glucose 202 (70-105) H 03/23/19 13:12 Lactic Acid 1.70 mmol/L (0.7-2.0) 03/22/19 13:50 4.0 mg/dL (3.5-7.6) 03/19/19 06:15 Calcium 8.0 mg/dL (8.4-10.2) L 03/23/19 04:00 Magnesium 1.80 mg/dL (1.7-2.3) 03/17/19 05:30 0.50 mg/dL (0.1-1.2) 03/15/19 07:15 AST 522 units/L (5-40) H 03/15/19 07:15 ALT 474 units/L (7-56) H 03/15/19 07:15 129 units/L (35-129) 03/15/19 07:15 853 units/L (91-180) H 03/19/19 06:15 1156 units/L (55-170) H 03/11/19 06:07 CK-MB (CK-2) 4.6 ng/mL (0.0-4.0) H 03/11/19 06:07 CK-MB (CK-2) Rel Index 0.3 (0-4) 03/11/19 06:07 0.077 ng/mL (0.00-0.029) H 03/11/19 06:07 20.60 mg/dL (0.00-1.30) H 03/22/19 13:50 5.7 g/dL (6.3-8.2) L 03/15/19 07:15 2.4 g/dL (3.9-5) L 03/15/19 07:15 0.7 % 03/15/19 07:15 Triglycerides 91 mg/dL (2-149) 03/11/19 00:50 Cholesterol < 4 mg/dL (50-199) L 03/11/19 00:50 4 mg/dL (50-130) L 03/11/19 00:50 < 3 mg/dL (40-59) L 03/11/19 00:50 1.00 % 03/11/19 00:50 Briana (Yellow) 03/10/19 23:06 Cloudy (Clear) 03/10/19 23:06 5.0 (5.0-7.0) 03/10/19 23:06 Ur Specific Canones 1.016 (1.003-1.030) 03/10/19 23:06 >500 mg/dL (Negative) 03/10/19 23:06 Neg mg/dL (Negative) 03/10/19 23:06 Neg mg/dL (Negative) 03/10/19 23:06 Mod (Negative) 03/10/19 23:06 Neg (Negative) 03/10/19 23:06 Neg (Negative) 03/10/19 23:06 2.0 mg/dL (<2.0) 03/10/19 23:06 Ur Leukocyte Esterase Neg (Negative) 03/10/19 23:06 24.0 /HPF (0.0-6.0) H 03/10/19 23:06 24.0 /HPF (0.0-6.0) 03/10/19 23:06 U Epithel Cells (Auto) 4.0 /HPF (0-13.0) 03/10/19 23:06 Amorphous Crystals Few 03/10/19 23:06 Random Vancomycin 14 ug/mL (0-40.0) 03/12/19 05:06 Proteinase 3 (PR3) Ab <1.0 AI (<1.0) 03/13/19 09:11 Myeloperoxidase Ab <1.0 AI (<1.0) 03/13/19 09:11 86 mg/dL (82-185) 03/13/19 09:12 37 mg/dL (15-53) 03/13/19 09:12 C. difficile Tox (PCR) Negative (Negative) 03/11/19 Unknown Hepatitis A IgM Ab Non-reactive (NonReactive) 03/13/19 01:31 Hep Bs Antigen Non-reactive (Negative) 03/13/19 01:31 Hep B Core IgM Ab Non-reactive (NonReactive) 03/13/19 01:31 Non-reactive (NonReactive) 03/13/19 01:31 Influenza A (Rapid) Negative (Negative) 03/10/19 18:00 Influenza B (Rapid) Negative (Negative) 03/10/19 18:00 Blood Type A POSITIVE 03/17/19 13:06 Antibody Screen Negative 03/17/19 13:06 Crossmatch See Detail 03/17/19 13:06 Active Medications - Current Medications Current Medications: Generic Name Dose Route Start Last Admin Trade Name Freq PRN Reason Stop Dose Admin Acetaminophen 650 mg 03/11/19 00:40 03/23/19 08:34 Tylenol PO 650 mg Q4H PRN Administration Pain MILD(1-3)/Fever >100.5/[place] Acetaminophen 650 mg 03/11/19 00:40 03/12/19 04:53 Tylenol MO 650 mg Q4H PRN Administration Pain MILD(1-3)/Fever >100.5/[place] Albumin Human 12.5 gm 03/13/19 09:29 Alburx 25% (Albumin) IV DUKE PRN Hypotension Albuterol 2.5 mg 03/17/19 16:00 03/23/19 08:30 Proventil IH 2.5 mg Q8HRT ROXANNE Administration Lipase/Protease/Amylase 1 each 03/15/19 13:[address] 10,500 Unit FEEDTUBE PRN PRN For Clogged Feeding Tube Dextrose 50 ml 03/11/19 00:44 D50w (25gm) Syringe IV PRN PRN Hypoglycemia Fentanyl 25 mcg 03/22/19 13:53 03/22/19 16:25 Sublimaze IV 25 mcg Q2H PRN Administration Pain, Moderate (4-6) Hydrophilic Ointment 1 applic 03/10/19 19:50 Vaseline Lip Therapy TP Q2HR PRN Dry Lips Propofol 1,000 mg in 100 mls @ 4.082 mls/hr 03/10/19 20:00 03/11/19 14:30 Diprivan 10 Mg/Ml IV Infused TITR ROXANNE Titration Protocol 5 MCG/KG/MIN Norepinephrine 4 mg in 250 mls @ 7.5 mls/hr 03/10/19 21:00 03/21/19 14:05 Levophed Drip 4 Mg/Ns 250 Ml IV 0 mcg/min TITR ROXANNE 0 mls/hr Titration Protocol 2 MCG/MIN Fentanyl Citrate 2,000 mcg in 100 mls @ 6.804 mls/hr 03/11/19 08:00 03/23/19 07:18 Fentanyl Drip Premix IV 1 mcg/kg/hr TITR ROXANNE 6.804 mls/hr Administration Protocol 1 MCG/KG/HR Sodium Chloride 100 mls @ 999 mls/hr 03/15/19 08:11 Nacl 0.9% IV DUKE PRN Hypotension Cefepime HCl 1 gm in 100 mls @ 200 mls/hr 03/23/19 13:00 03/23/19 13:19 Maxipime/Ns 1 Gm/100 Ml IV 200 mls/hr Q24HR ROXANNE Administration Protocol Vancomycin HCl 1,500 mg/ 530 mls @ 333.333 mls/hr 03/23/19 13:00 03/23/19 13:19 Sodium Chloride IV 03/23/19 14:35 333.333 mls/hr ONCE ONE Administration Vancomycin HCl 1 gm in 250 mls @ 125 mls/hr 03/24/19 17:00 Vancomycin/Ns 1 Gm/250 Ml IV 3XW@1700 [facility] Insulin Glargine 40 units 03/19/19 08:00 03/23/19 08:35 Lantus SUB-Q 40 units QAMDIAB [facility] Administration Insulin Human Lispro 0 unit 03/11/19 06:00 03/23/19 13:05 Humalog SUB-Q 4 unit Q6HR [facility] Administration Protocol Lansoprazole 30 mg 03/18/19 10:00 03/23/19 09:56 Prevacid Solutab FEEDTUBE 30 mg QDAY ROXANNE Administration Midodrine 10 mg 03/19/19 16:00 03/23/19 13:05 Proamatine PO 10 mg TID@0800,1200,1600 ROXANNE Administration Multi-Ingred Cream/Lotion/Oil/Oint 1 applic 03/10/19 19:50 Artificial Tears Ophth Oint OU Q4HR PRN Dry Eye(s) Ondansetron HCl 4 mg 03/11/19 00:40 03/19/19 21:53 Zofran IV 4 mg Q8H PRN Administration Nausea And Vomiting Simple Syrup 15 ml 03/15/19 13:21 Simple Syrup FEEDTUBE PRN PRN Hypoglycemia Simple Syrup 30 ml 03/15/19 13:21 Simple Syrup FEEDTUBE PRN PRN Hypoglycemia Sodium Bicarbonate 325 mg 03/15/19 13:21 Sodium Bicarbonate FEEDTUBE PRN PRN For Clogged Feeding Tube Sodium Chloride 10 ml 03/11/19 10:00 03/23/19 09:59 Sodium Chloride Flush Syringe 10 Ml IV 10 ml BID ROXANNE Administration Sodium Chloride 10 ml 03/11/19 00:40 Sodium Chloride Flush Syringe 10 Ml IV PRN PRN LINE FLUSH Nutrition/Malnutrition Assess - Dietary Evaluation Nutrition/Malnutrition Findings: Nutrition Notes Start: 03/12/19 11:38 Freq: Status: Active Protocol: Document 03/19/19 17:16 RM (Rec: 03/19/19 17:19 RM [id number]) Nutrition Notes Initial or Follow up Reassessment Current Diagnosis CKD(stage I-IV),Coronary Artery Disease,Diabetes,Sepsis ,Hypertension,Respiratory Failure Other Pertinent Diagnosis s/p cardiac arrest, anoxic brain injury Current Diet TF - Nepro at 45ml/hr Labs/Tests Reviewed Pertinent Medications Reviewed Height 5 ft 4 in Weight 147.8 kg Lennon Body Weight (kg) 59.09 BMI 55.9 Subjective/Other Information Observed Nepro infusing at goal rate. Per nurse pt is tolerating TF. Percent of energy/protein needs met: 73% energy 71% pro Burn Absent Trauma Absent #1 Nutrition Diagnosis Inadequate oral intake Diagnosis Progress(for reassessment Continues documentation) Is patient on ventilator? Yes Is Patient Ambulatory and/or Out of Bed No REE-([facility]-confined to bed) [phone] Calculation Used for Recommendations 65-70% energy needs Additional Notes Energy needs: 3588-8745 kcal/ day Pro needs 1.2-1.4g/kg adjBW: 124-145g/day Fluid needs 1-1.5L/day Nutrition Intervention Nutrition Support: Continue Nepro at 45ml/hr with 120ml water flush q4h. Kcal 1,944 Protein (gm) 87 Carbohydrates (gm) 174 Fat (gm) 104 Fluid (mL) 785 Fiber (gm) 14 Goal #1 TF tolerance Goal #2 TF to meet nutrient needs as best possible Follow-Up By: 03/26/19 Additional Comments Follow for TF tolerance
--- NOTE | 2019-03-23 14:45 | Progress Note ---
Assessment and Plan s/p Cardiopulmonary arrest with ROSC Acute on chronic hypoxemic respiratory failure on MVS Severe sepsis with septic shock - Streptococcal Acute on chronic renal failure (multifactorial) Acute metabolic-toxic encephalopathy Morbid obesity h/o CAD s/p 2 stents Pancytopenia- probably secondary to sepsis and underlying chronic liver disease Type 2 DM h/o Alcohol abuse disorder (I have expressed to his daughter that AMS is rate limiting step to safe extubation and a trach & PEG will likely be needed if remains persistent) - CBC without eosinophillia - suspect "heat rash" type reaction vs leukemia related rash - lactate WNL but CRP level is significantly elevated - continue Antibiotic therapy per ID rec's (on Vancomycin) - continue midodrine for BP support - Hematology evaluation ongoing (? Flow cytometry) - continue fentanyl drip and titrate sedation for RASS 0 to -1 - continue Lantus Insulin at 40 units daily - continue HD/UF for toxin and volume clearance - wean levophed for MAP > 65 mmHg - complete AB's per ID rec's - TTE with EF 40-45% and diastolic dysfunction - continue Lung protective strategies - continue serial CXR's and ABG's - VAP bundle addressed - Critical care bundles addressed - Daily SATs and SBTs as odalys,erated (not tolerating well) - continue supplemental oxygen to keep O2 sats 90-92% - continue bronchodilators with pulm hygiene per RT - continue accuchecks with glycemic control per SSI for target blood glucose <180mg/dL - enteral nutrition as tolerated - Agitation management - Prevention of delirium, maintenance of sleep-wake cycle - De-escalate therapy based on microbiology/HAYDER/Cultures - Trend hematologic indices - Avoid nephrotoxic agents, adjust all antibiotics and medications for CrCL and GFR - VTE ( SCDs) and Stress ulcer prophylaxis( therapeutic PPI for now) - discontinue Womack catheter if OK with waste and batting waste chopper .... re-evaluate in am & prn CONDITION: CRITICAL PROGNOSIS: GUARDED CODE STATUS: FULL CODE Discussed with ID service and with RT/RN Discussed on ICU-IDT rounds The high probability of a clinically significant, sudden or life-threatening deterioration of the [respiratory, cardiovascular, renal, neurology] system(s) required my full and direct attention, intervention and personal management. The aggregate critical care time was [32] minutes without overlap. Time includes spent on; [x] Data Review and interpretation [x] Patient assessment and monitoring of vital signs [x] Documentation [x] Medication orders and management Subjective Date of service: 03/23/19 Principal diagnosis: s/p cardiac arrest; acute hypoxemic resp failure; ISMAEL; hyperkalemia, Sepsis Interval history: Patient is seen today for: s/p cardiopulmonary arrest, acute hypoxemic respiratory failure, ISMAEL, Severe hyperkalemia, Severe sepsis Seen and examined at bedside; 24hour events reviewed; nursing and respiratory care staff consulted; no adverse overnight events reported to me; remains on MVS; AMS is persistent; FiO2 at 45%; not tolerating SBT's; no emesis or overt aspiration and no gross bleeding; also no high grade fevers Objective Vital Signs - 12hr 03/23/19 03/23/19 03/23/19 03:00 03:26 03:31 Temperature 101.9 F H Pulse Rate 106 H 106 H Pulse Rate [ Anterior Bilateral Throughout] Pulse Rate [ From Monitor] Respiratory 31 H 32 H Rate Respiratory Rate [Anterior Bilateral Throughout] Blood Pressure 112/51 128/42 O2 Sat by Pulse 90 92 Oximetry 03/23/19 03/23/19 03/23/19 04:00 04:01 04:09 Temperature Pulse Rate 105 H 105 H Pulse Rate [ Anterior Bilateral Throughout] Pulse Rate [ 108 H From Monitor] Respiratory 32 H Rate Respiratory Rate [Anterior Bilateral Throughout] Blood Pressure 109/43 109/43 O2 Sat by Pulse 95 92 92 Oximetry 03/23/19 03/23/19 03/23/19 04:31 05:01 05:31 Temperature Pulse Rate 105 H 102 H 104 H Pulse Rate [ Anterior Bilateral Throughout] Pulse Rate [ From Monitor] Respiratory 32 H 31 H 33 H Rate Respiratory Rate [Anterior Bilateral Throughout] Blood Pressure 135/57 135/57 121/52 O2 Sat by Pulse 94 91 95 Oximetry 03/23/19 03/23/19 03/23/19 06:00 06:30 07:01 Temperature Pulse Rate 107 H 106 H 105 H Pulse Rate [ Anterior Bilateral Throughout] Pulse Rate [ From Monitor] Respiratory 35 H 35 H 35 H Rate Respiratory Rate [Anterior Bilateral Throughout] Blood Pressure 137/56 135/77 142/64 O2 Sat by Pulse 95 95 95 Oximetry 03/23/19 03/23/19 03/23/19 07:31 08:00 08:26 Temperature 100.8 F H Pulse Rate 105 H 104 H 102 H Pulse Rate [ Anterior Bilateral Throughout] Pulse Rate [ 101 H From Monitor] Respiratory 35 H 34 H Rate Respiratory Rate [Anterior Bilateral Throughout] Blood Pressure 118/43 122/70 112/60 O2 Sat by Pulse 96 95 97 Oximetry 03/23/19 03/23/19 03/23/19 08:30 08:58 09:01 Temperature Pulse Rate 102 H 102 H Pulse Rate [ 102 H 101 H Anterior Bilateral Throughout] Pulse Rate [ From Monitor] Respiratory 32 H 31 H Rate Respiratory 32 H 28 H Rate [Anterior Bilateral Throughout] Blood Pressure 112/44 121/55 O2 Sat by Pulse 95 94 Oximetry 03/23/19 03/23/19 03/23/19 09:30 10:00 10:02 Temperature 100.7 F H Pulse Rate 105 H 103 H Pulse Rate [ Anterior Bilateral Throughout] Pulse Rate [ From Monitor] Respiratory 34 H 33 H Rate Respiratory Rate [Anterior Bilateral Throughout] Blood Pressure 126/42 137/46 O2 Sat by Pulse 95 94 Oximetry 03/23/19 03/23/19 03/23/19 10:30 11:00 11:30 Temperature Pulse Rate 98 H 94 H 90 Pulse Rate [ Anterior Bilateral Throughout] Pulse Rate [ From Monitor] Respiratory 31 H 30 H 27 H Rate Respiratory Rate [Anterior Bilateral Throughout] Blood Pressure 135/42 123/60 118/52 O2 Sat by Pulse 95 95 95 Oximetry 03/23/19 03/23/19 03/23/19 11:59 12:00 12:30 Temperature 99.2 F Pulse Rate 91 H 91 H 88 Pulse Rate [ Anterior Bilateral Throughout] Pulse Rate [ 91 H From Monitor] Respiratory 28 H 26 H Rate Respiratory Rate [Anterior Bilateral Throughout] Blood Pressure 116/56 116/56 123/53 O2 Sat by Pulse 93 93 97 Oximetry 03/23/19 03/23/19 13:00 13:30 Temperature Pulse Rate 94 H 89 Pulse Rate [ Anterior Bilateral Throughout] Pulse Rate [ From Monitor] Respiratory 31 H 29 H Rate Respiratory Rate [Anterior Bilateral Throughout] Blood Pressure 137/47 145/51 O2 Sat by Pulse 95 95 Oximetry Constitutional: appears uncomfortable, other (middle aged morbidly obese CM, normocephalic with mildly increased resp effort at rest on MVS) Eyes: non-icteric ENT: oropharynx moist, other (ETT 24 cm ASHA) Neck: supple, no lymphadenopathy, no JVD, other (large neck circumference) Effort: very labored Ascultation: Bilateral: diminished breath sounds, rhonchi (bases) Percussion: Bilateral: not dull Cardiovascular: regular rate and rhythm, other (No R/M) Gastrointestinal: normoactive bowel sounds, soft, non-tender, non-distended Integumentary: normal Extremities: no cyanosis, pink and warm, pulses normal, no ischemia or petechiae Neurologic: non-focal exam (grossly), pupils equal and round, unable to assess, other (Encephalopathic) Psychiatric: other (unable to assess) CBC and BMP: 03/23/19 04:10 03/23/19 04:00 ABG, PT/INR, D-dimer: ABG POC ABG pH 7.398 (7.35-7.45) 03/19/19 03:48 POC ABG pCO2 43.5 (35-45) 03/19/19 03:48 POC ABG pO2 80 (80-105) 03/19/19 03:48 POC ABG HCO3 26.8 (22-26 mml/L) 03/19/19 03:48 POC ABG Total CO2 28 (23-27mmol/L) 03/19/19 03:48 POC ABG O2 Sat 96 03/19/19 03:48 PT/INR, D-dimer PT 14.4 Sec. (12.2-14.9) 03/10/19 17:57 INR 1.15 (0.87-1.13) H 03/10/19 17:57 Abnormal lab findings: Abnormal Labs 03/10/19 03/10/19 03/10/19 17:57 17:57 17:57 WBC 1.2 L* RBC 2.46 L Hgb 7.9 L Hct 23.2 L MCV MCHC RDW 18.2 H Plt Count 47 L [place] # 0.9 H Seg Neuts % (Manual) 6.0 L Lymphocytes % (Manual) 74.0 H Monocytes % (Manual) 20.0 H Nucleated RBC % Seg Neutrophils # 0.1 L Seg Neutrophils # Man 0.1 L Lymphocytes # (Manual) 0.9 L Monocytes # (Manual) INR POC ABG pH POC ABG pCO2 POC ABG pO2 Potassium Chloride Carbon Dioxide BUN 46 H Creatinine 2.9 H Glucose 200 H POC Glucose Lactic Acid 2.50 H* Calcium 7.6 L Total Bilirubin AST ALT Lactate Dehydrogenase Total Creatine Kinase CK-MB (CK-2) Troponin T C-Reactive Protein Total Protein Albumin 3.2 L Cholesterol LDL Cholesterol Direct HDL Cholesterol Urine WBC (Auto) Crossmatch 03/10/19 03/10/19 03/10/19 17:57 18:01 18:52 WBC RBC Hgb Hct MCV MCHC RDW Plt Count [place] # Seg Neuts % (Manual) Lymphocytes % (Manual) Monocytes % (Manual) Nucleated RBC % Seg Neutrophils # Seg Neutrophils # Man Lymphocytes # (Manual) Monocytes # (Manual) INR 1.15 H POC ABG pH POC ABG pCO2 POC ABG pO2 Potassium Chloride Carbon Dioxide BUN Creatinine Glucose POC Glucose 234 H Lactic Acid Calcium Total Bilirubin AST ALT Lactate Dehydrogenase Total Creatine Kinase CK-MB (CK-2) Troponin T C-Reactive Protein Total Protein Albumin Cholesterol LDL Cholesterol Direct HDL Cholesterol Urine WBC (Auto) Crossmatch See Detail 03/10/19 03/10/19 03/10/19 19:16 21:32 23:06 WBC RBC Hgb Hct MCV MCHC RDW Plt Count [place] # Seg Neuts % (Manual) Lymphocytes % (Manual) Monocytes % (Manual) Nucleated RBC % Seg Neutrophils # Seg Neutrophils # Man Lymphocytes # (Manual) Monocytes # (Manual) INR POC ABG pH POC ABG pCO2 POC ABG pO2 315 H Potassium Chloride Carbon Dioxide BUN Creatinine Glucose POC Glucose Lactic Acid 2.80 H* Calcium Total Bilirubin AST ALT Lactate Dehydrogenase Total Creatine Kinase CK-MB (CK-2) Troponin T C-Reactive Protein Total Protein Albumin Cholesterol LDL Cholesterol Direct HDL Cholesterol Urine WBC (Auto) 24.0 H Crossmatch 03/10/19 03/11/19 03/11/19 23:29 00:50 05:01 WBC RBC 2.29 L Hgb 7.3 L Hct 22.2 L MCV 97 H MCHC RDW 18.2 H Plt Count 40 L [place] # Seg Neuts % (Manual) 8.0 L Lymphocytes % (Manual) 67.0 H Monocytes % (Manual) 24.0 H Nucleated RBC % 5.0 H Seg Neutrophils # Seg Neutrophils # Man 0.4 L Lymphocytes # (Manual) Monocytes # (Manual) 1.2 H INR POC ABG pH POC ABG pCO2 POC ABG pO2 Potassium Chloride Carbon Dioxide BUN Creatinine Glucose POC Glucose 237 H Lactic Acid Calcium Total Bilirubin AST ALT Lactate Dehydrogenase Total Creatine Kinase 513 H CK-MB (CK-2) Troponin T 0.075 H C-Reactive Protein Total Protein Albumin Cholesterol < 4 L LDL Cholesterol Direct 4 L HDL Cholesterol < 3 L Urine WBC (Auto) Crossmatch 03/11/19 03/11/19 03/11/19 05:01 06:06 06:07 WBC RBC Hgb Hct MCV MCHC RDW Plt Count [place] # Seg Neuts % (Manual) Lymphocytes % (Manual) Monocytes % (Manual) Nucleated RBC % Seg Neutrophils # Seg Neutrophils # Man Lymphocytes # (Manual) Monocytes # (Manual) INR POC ABG pH POC ABG pCO2 32.8 L POC ABG pO2 Potassium 5.3 H Chloride Carbon Dioxide 19 L BUN 49 H Creatinine 3.7 H Glucose 203 H POC Glucose Lactic Acid Calcium 7.1 L Total Bilirubin AST ALT Lactate Dehydrogenase Total Creatine Kinase 1156 H CK-MB (CK-2) 4.6 H Troponin T 0.077 H C-Reactive Protein Total Protein Albumin Cholesterol LDL Cholesterol Direct HDL Cholesterol Urine WBC (Auto) Crossmatch 03/11/19 03/11/19 03/11/19 06:35 13:07 18:36 WBC RBC Hgb Hct MCV MCHC RDW Plt Count [place] # Seg Neuts % (Manual) Lymphocytes % (Manual) Monocytes % (Manual) Nucleated RBC % Seg Neutrophils # Seg Neutrophils # Man Lymphocytes # (Manual) Monocytes # (Manual) INR POC ABG pH POC ABG pCO2 POC ABG pO2 Potassium Chloride Carbon Dioxide BUN Creatinine Glucose POC Glucose 209 H 185 H 126 H Lactic Acid Calcium Total Bilirubin AST ALT Lactate Dehydrogenase Total Creatine Kinase CK-MB (CK-2) Troponin T C-Reactive Protein Total Protein Albumin Cholesterol LDL Cholesterol Direct HDL Cholesterol Urine WBC (Auto) Crossmatch 03/11/19 03/12/19 03/12/19 23:45 04:25 05:06 WBC RBC 2.24 L Hgb 7.2 L Hct 21.9 L MCV 98 H MCHC RDW 18.3 H Plt Count 38 L [place] # Seg Neuts % (Manual) 4.0 L Lymphocytes % (Manual) Monocytes % (Manual) 69.0 H Nucleated RBC % Seg Neutrophils # Seg Neutrophils # Man 0.3 L Lymphocytes # (Manual) Monocytes # (Manual) 4.9 H INR POC ABG pH 7.320 L POC ABG pCO2 POC ABG pO2 Potassium Chloride Carbon Dioxide BUN Creatinine Glucose POC Glucose 137 H Lactic Acid Calcium Total Bilirubin AST ALT Lactate Dehydrogenase Total Creatine Kinase CK-MB (CK-2) Troponin T C-Reactive Protein Total Protein Albumin Cholesterol LDL Cholesterol Direct HDL Cholesterol Urine WBC (Auto) Crossmatch 03/12/19 03/12/19 03/12/19 05:06 05:57 07:19 WBC RBC Hgb Hct MCV MCHC RDW Plt Count [place] # Seg Neuts % (Manual) Lymphocytes % (Manual) Monocytes % (Manual) Nucleated RBC % Seg Neutrophils # Seg Neutrophils # Man Lymphocytes # (Manual) Monocytes # (Manual) INR POC ABG pH POC ABG pCO2 POC ABG pO2 Potassium 6.6 H* D 6.6 H* Chloride Carbon Dioxide 17 L BUN 66 H Creatinine 5.6 H D Glucose 149 H POC Glucose 165 H Lactic Acid Calcium 6.5 L Total Bilirubin 1.90 H AST 782 H ALT 382 H Lactate Dehydrogenase Total Creatine Kinase CK-MB (CK-2) Troponin T C-Reactive Protein Total Protein 5.7 L Albumin 2.7 L Cholesterol LDL Cholesterol Direct HDL Cholesterol Urine WBC (Auto) Crossmatch 03/12/19 03/12/19 03/12/19 15:24 18:55 23:45 WBC RBC Hgb Hct MCV MCHC RDW Plt Count [place] # Seg Neuts % (Manual) Lymphocytes % (Manual) Monocytes % (Manual) Nucleated RBC % Seg Neutrophils # Seg Neutrophils # Man Lymphocytes # (Manual) Monocytes # (Manual) INR POC ABG pH POC ABG pCO2 POC ABG pO2 Potassium Chloride Carbon Dioxide BUN Creatinine Glucose POC Glucose 167 H 212 H 197 H Lactic Acid Calcium Total Bilirubin AST ALT Lactate Dehydrogenase Total Creatine Kinase CK-MB (CK-2) Troponin T C-Reactive Protein Total Protein Albumin Cholesterol LDL Cholesterol Direct HDL Cholesterol Urine WBC (Auto) Crossmatch 03/13/19 03/13/19 03/13/19 05:37 09:11 09:11 WBC RBC 1.99 L Hgb 6.4 L Hct 18.7 L* MCV MCHC RDW 18.5 H Plt Count 36 L [place] # Seg Neuts % (Manual) Lymphocytes % (Manual) Monocytes % (Manual) Nucleated RBC % Seg Neutrophils # Seg Neutrophils # Man Lymphocytes # (Manual) Monocytes # (Manual) INR POC ABG pH POC ABG pCO2 POC ABG pO2 Potassium Chloride Carbon Dioxide BUN 52 H Creatinine 5.5 H Glucose 235 H POC Glucose 250 H Lactic Acid Calcium 6.2 L Total Bilirubin AST ALT Lactate Dehydrogenase Total Creatine Kinase CK-MB (CK-2) Troponin T C-Reactive Protein Total Protein Albumin Cholesterol LDL Cholesterol Direct HDL Cholesterol Urine WBC (Auto) Crossmatch 03/13/19 03/13/19 03/13/19 11:06 12:38 18:11 WBC RBC 2.07 L Hgb 6.6 L Hct 19.6 L* MCV 95 H MCHC RDW 18.5 H Plt Count 33 L [place] # Seg Neuts % (Manual) Lymphocytes % (Manual) Monocytes % (Manual) Nucleated RBC % Seg Neutrophils # Seg Neutrophils # Man Lymphocytes # (Manual) Monocytes # (Manual) INR POC ABG pH POC ABG pCO2 POC ABG pO2 Potassium Chloride Carbon Dioxide BUN Creatinine Glucose POC Glucose 268 H 255 H Lactic Acid Calcium Total Bilirubin AST ALT Lactate Dehydrogenase Total Creatine Kinase CK-MB (CK-2) Troponin T C-Reactive Protein Total Protein Albumin Cholesterol LDL Cholesterol Direct HDL Cholesterol Urine WBC (Auto) Crossmatch 03/13/19 03/13/19 03/13/19 19:12 20:58 23:49 WBC RBC Hgb Hct MCV MCHC RDW Plt Count [place] # Seg Neuts % (Manual) Lymphocytes % (Manual) Monocytes % (Manual) Nucleated RBC % Seg Neutrophils # Seg Neutrophils # Man Lymphocytes # (Manual) Monocytes # (Manual) INR POC ABG pH 7.466 H POC ABG pCO2 POC ABG pO2 Potassium Chloride Carbon Dioxide BUN Creatinine Glucose POC Glucose 289 H Lactic Acid Calcium Total Bilirubin AST ALT Lactate Dehydrogenase Total Creatine Kinase CK-MB (CK-2) Troponin T C-Reactive Protein Total Protein Albumin Cholesterol LDL Cholesterol Direct HDL Cholesterol Urine WBC (Auto) Crossmatch See Detail 03/14/19 03/14/19 03/14/19 05:51 11:39 13:43 WBC 14.0 H RBC 2.78 L Hgb 8.9 L Hct 26.0 L D MCV MCHC RDW 17.9 H Plt Count 42 L [place] # Seg Neuts % (Manual) 2.0 L Lymphocytes % (Manual) 84.0 H Monocytes % (Manual) 13.0 H Nucleated RBC % Seg Neutrophils # Seg Neutrophils # Man 0.3 L Lymphocytes # (Manual) 11.8 H Monocytes # (Manual) 1.8 H INR POC ABG pH POC ABG pCO2 POC ABG pO2 Potassium Chloride Carbon Dioxide BUN Creatinine Glucose POC Glucose 305 H 283 H Lactic Acid Calcium Total Bilirubin AST ALT Lactate Dehydrogenase Total Creatine Kinase CK-MB (CK-2) Troponin T C-Reactive Protein Total Protein Albumin Cholesterol LDL Cholesterol Direct HDL Cholesterol Urine WBC (Auto) Crossmatch 03/14/19 03/15/19 03/15/19 18:12 00:43 04:24 WBC RBC Hgb Hct MCV MCHC RDW Plt Count [place] # Seg Neuts % (Manual) Lymphocytes % (Manual) Monocytes % (Manual) Nucleated RBC % Seg Neutrophils # Seg Neutrophils # Man Lymphocytes # (Manual) Monocytes # (Manual) INR POC ABG pH 7.497 H POC ABG pCO2 34.0 L POC ABG pO2 Potassium Chloride Carbon Dioxide BUN Creatinine Glucose POC Glucose 313 H 236 H Lactic Acid Calcium Total Bilirubin AST ALT Lactate Dehydrogenase Total Creatine Kinase CK-MB (CK-2) Troponin T C-Reactive Protein Total Protein Albumin Cholesterol LDL Cholesterol Direct HDL Cholesterol Urine WBC (Auto) Crossmatch 03/15/19 03/15/19 03/15/19 07:15 07:15 07:24 WBC 16.1 H RBC 2.50 L Hgb 8.1 L Hct 23.4 L MCV MCHC 35 H RDW 18.5 H Plt Count 42 L [place] # Seg Neuts % (Manual) 2.0 L Lymphocytes % (Manual) 41.0 H Monocytes % (Manual) 11.0 H Nucleated RBC % Seg Neutrophils # Seg Neutrophils # Man 0.3 L Lymphocytes # (Manual) 6.6 H Monocytes # (Manual) 1.8 H INR POC ABG pH POC ABG pCO2 POC ABG pO2 Potassium Chloride 96.0 L Carbon Dioxide BUN 47 H Creatinine 5.0 H Glucose 287 H POC Glucose 285 H Lactic Acid Calcium 7.2 L D Total Bilirubin AST 522 H ALT 474 H Lactate Dehydrogenase Total Creatine Kinase CK-MB (CK-2) Troponin T C-Reactive Protein Total Protein 5.7 L Albumin 2.4 L Cholesterol LDL Cholesterol Direct HDL Cholesterol Urine WBC (Auto) Crossmatch 03/15/19 03/15/19 03/15/19 11:18 17:12 23:19 WBC RBC Hgb Hct MCV MCHC RDW Plt Count [place] # Seg Neuts % (Manual) Lymphocytes % (Manual) Monocytes % (Manual) Nucleated RBC % Seg Neutrophils # Seg Neutrophils # Man Lymphocytes # (Manual) Monocytes # (Manual) INR POC ABG pH POC ABG pCO2 POC ABG pO2 Potassium Chloride Carbon Dioxide BUN Creatinine Glucose POC Glucose 287 H 221 H 297 H Lactic Acid Calcium Total Bilirubin AST ALT Lactate Dehydrogenase Total Creatine Kinase CK-MB (CK-2) Troponin T C-Reactive Protein Total Protein Albumin Cholesterol LDL Cholesterol Direct HDL Cholesterol Urine WBC (Auto) Crossmatch 03/16/19 03/16/19 03/16/19 03:49 05:26 11:26 WBC RBC Hgb Hct MCV MCHC RDW Plt Count [place] # Seg Neuts % (Manual) Lymphocytes % (Manual) Monocytes % (Manual) Nucleated RBC % Seg Neutrophils # Seg Neutrophils # Man Lymphocytes # (Manual) Monocytes # (Manual) INR POC ABG pH 7.487 H POC ABG pCO2 34.3 L POC ABG pO2 254 H Potassium Chloride Carbon Dioxide BUN Creatinine Glucose POC Glucose 271 H 298 H Lactic Acid Calcium Total Bilirubin AST ALT Lactate Dehydrogenase Total Creatine Kinase CK-MB (CK-2) Troponin T C-Reactive Protein Total Protein Albumin Cholesterol LDL Cholesterol Direct HDL Cholesterol Urine WBC (Auto) Crossmatch 03/16/19 03/16/19 03/17/19 17:55 23:47 04:08 WBC RBC Hgb Hct MCV MCHC RDW Plt Count [place] # Seg Neuts % (Manual) Lymphocytes % (Manual) Monocytes % (Manual) Nucleated RBC % Seg Neutrophils # Seg Neutrophils # Man Lymphocytes # (Manual) Monocytes # (Manual) INR POC ABG pH 7.491 H POC ABG pCO2 31.1 L POC ABG pO2 70 L Potassium Chloride Carbon Dioxide BUN Creatinine Glucose POC Glucose 304 H 260 H Lactic Acid Calcium Total Bilirubin AST ALT Lactate Dehydrogenase Total Creatine Kinase CK-MB (CK-2) Troponin T C-Reactive Protein Total Protein Albumin Cholesterol LDL Cholesterol Direct HDL Cholesterol Urine WBC (Auto) Crossmatch 03/17/19 03/17/19 03/17/19 05:30 05:30 05:55 WBC 18.8 H RBC 2.13 L Hgb 6.9 L Hct 20.0 L MCV MCHC 35 H RDW 18.4 H Plt Count 34 L [place] # Seg Neuts % (Manual) Lymphocytes % (Manual) Monocytes % (Manual) Nucleated RBC % Seg Neutrophils # Seg Neutrophils # Man Lymphocytes # (Manual) Monocytes # (Manual) INR POC ABG pH POC ABG pCO2 POC ABG pO2 Potassium 3.5 L Chloride 96.6 L Carbon Dioxide BUN 86 H Creatinine 7.4 H Glucose 222 H POC Glucose 218 H Lactic Acid Calcium 6.9 L Total Bilirubin AST ALT Lactate Dehydrogenase Total Creatine Kinase CK-MB (CK-2) Troponin T C-Reactive Protein Total Protein Albumin Cholesterol LDL Cholesterol Direct HDL Cholesterol Urine WBC (Auto) Crossmatch 03/17/19 03/17/19 03/17/19 12:09 13:06 17:37 WBC RBC Hgb Hct MCV MCHC RDW Plt Count [place] # Seg Neuts % (Manual) Lymphocytes % (Manual) Monocytes % (Manual) Nucleated RBC % Seg Neutrophils # Seg Neutrophils # Man Lymphocytes # (Manual) Monocytes # (Manual) INR POC ABG pH POC ABG pCO2 POC ABG pO2 Potassium Chloride Carbon Dioxide BUN Creatinine Glucose POC Glucose 246 H 253 H Lactic Acid Calcium Total Bilirubin AST ALT Lactate Dehydrogenase Total Creatine Kinase CK-MB (CK-2) Troponin T C-Reactive Protein Total Protein Albumin Cholesterol LDL Cholesterol Direct HDL Cholesterol Urine WBC (Auto) Crossmatch See Detail 03/18/19 03/18/19 03/18/19 00:06 04:49 05:43 WBC RBC Hgb Hct MCV MCHC RDW Plt Count [place] # Seg Neuts % (Manual) Lymphocytes % (Manual) Monocytes % (Manual) Nucleated RBC % Seg Neutrophils # Seg Neutrophils # Man Lymphocytes # (Manual) Monocytes # (Manual) INR POC ABG pH 7.569 H POC ABG pCO2 30.6 L POC ABG pO2 Potassium Chloride Carbon Dioxide BUN Creatinine Glucose POC Glucose 233 H 310 H Lactic Acid Calcium Total Bilirubin AST ALT Lactate Dehydrogenase Total Creatine Kinase CK-MB (CK-2) Troponin T C-Reactive Protein Total Protein Albumin Cholesterol LDL Cholesterol Direct HDL Cholesterol Urine WBC (Auto) Crossmatch 03/18/19 03/18/19 03/18/19 05:45 12:09 17:43 WBC 28.3 H RBC 2.50 L Hgb 8.1 L Hct 23.4 L MCV MCHC 35 H RDW 17.7 H Plt Count 36 L [place] # Seg Neuts % (Manual) 0 L Lymphocytes % (Manual) 4.0 L Monocytes % (Manual) Nucleated RBC % 1.0 H Seg Neutrophils # Seg Neutrophils # Man 0.0 L Lymphocytes # (Manual) 1.1 L Monocytes # (Manual) 1.4 H INR POC ABG pH POC ABG pCO2 POC ABG pO2 Potassium Chloride Carbon Dioxide BUN Creatinine Glucose POC Glucose 258 H 252 H Lactic Acid Calcium Total Bilirubin AST ALT Lactate Dehydrogenase Total Creatine Kinase CK-MB (CK-2) Troponin T C-Reactive Protein Total Protein Albumin Cholesterol LDL Cholesterol Direct HDL Cholesterol Urine WBC (Auto) Crossmatch 03/19/19 03/19/19 03/19/19 00:04 06:15 06:15 WBC RBC Hgb Hct MCV MCHC RDW Plt Count [place] # Seg Neuts % (Manual) Lymphocytes % (Manual) Monocytes % (Manual) Nucleated RBC % Seg Neutrophils # Seg Neutrophils # Man Lymphocytes # (Manual) Monocytes # (Manual) INR POC ABG pH POC ABG pCO2 POC ABG pO2 Potassium Chloride 96.7 L Carbon Dioxide BUN 60 H Creatinine 5.4 H Glucose 249 H POC Glucose 215 H Lactic Acid Calcium 7.6 L Total Bilirubin AST ALT Lactate Dehydrogenase 853 H Total Creatine Kinase CK-MB (CK-2) Troponin T C-Reactive Protein Total Protein Albumin Cholesterol LDL Cholesterol Direct HDL Cholesterol Urine WBC (Auto) Crossmatch 03/19/19 03/19/19 03/19/19 06:17 12:51 18:18 WBC RBC Hgb Hct MCV MCHC RDW Plt Count [place] # Seg Neuts % (Manual) Lymphocytes % (Manual) Monocytes % (Manual) Nucleated RBC % Seg Neutrophils # Seg Neutrophils # Man Lymphocytes # (Manual) Monocytes # (Manual) INR POC ABG pH POC ABG pCO2 POC ABG pO2 Potassium Chloride Carbon Dioxide BUN Creatinine Glucose POC Glucose 301 H 278 H 252 H Lactic Acid Calcium Total Bilirubin AST ALT Lactate Dehydrogenase Total Creatine Kinase CK-MB (CK-2) Troponin T C-Reactive Protein Total Protein Albumin Cholesterol LDL Cholesterol Direct HDL Cholesterol Urine WBC (Auto) Crossmatch 03/19/19 03/20/19 03/20/19 23:58 04:45 04:45 WBC 39.9 H RBC 2.51 L Hgb 8.0 L Hct 24.1 L MCV 96 H MCHC RDW 18.2 H Plt Count 51 L [place] # Seg Neuts % (Manual) Lymphocytes % (Manual) Monocytes % (Manual) Nucleated RBC % Seg Neutrophils # Seg Neutrophils # Man Lymphocytes # (Manual) Monocytes # (Manual) INR POC ABG pH POC ABG pCO2 POC ABG pO2 Potassium Chloride Carbon Dioxide BUN 51 H Creatinine 5.1 H Glucose 221 H POC Glucose 233 H Lactic Acid Calcium 7.8 L Total Bilirubin AST ALT Lactate Dehydrogenase Total Creatine Kinase CK-MB (CK-2) Troponin T C-Reactive Protein Total Protein Albumin Cholesterol LDL Cholesterol Direct HDL Cholesterol Urine WBC (Auto) Crossmatch 03/20/19 03/20/19 03/20/19 05:52 11:43 17:48 WBC RBC Hgb Hct MCV MCHC RDW Plt Count [place] # Seg Neuts % (Manual) Lymphocytes % (Manual) Monocytes % (Manual) Nucleated RBC % Seg Neutrophils # Seg Neutrophils # Man Lymphocytes # (Manual) Monocytes # (Manual) INR POC ABG pH POC ABG pCO2 POC ABG pO2 Potassium Chloride Carbon Dioxide BUN Creatinine Glucose POC Glucose 256 H 316 H 286 H Lactic Acid Calcium Total Bilirubin AST ALT Lactate Dehydrogenase Total Creatine Kinase CK-MB (CK-2) Troponin T C-Reactive Protein Total Protein Albumin Cholesterol LDL Cholesterol Direct HDL Cholesterol Urine WBC (Auto) Crossmatch 03/21/19 03/21/19 03/21/19 00:17 06:21 08:00 WBC RBC Hgb Hct MCV MCHC RDW Plt Count [place] # Seg Neuts % (Manual) Lymphocytes % (Manual) Monocytes % (Manual) Nucleated RBC % Seg Neutrophils # Seg Neutrophils # Man Lymphocytes # (Manual) Monocytes # (Manual) INR POC ABG pH POC ABG pCO2 POC ABG pO2 Potassium Chloride Carbon Dioxide BUN Creatinine Glucose POC Glucose 212 H 256 H 285 H Lactic Acid Calcium Total Bilirubin AST ALT Lactate Dehydrogenase Total Creatine Kinase CK-MB (CK-2) Troponin T C-Reactive Protein Total Protein Albumin Cholesterol LDL Cholesterol Direct HDL Cholesterol Urine WBC (Auto) Crossmatch 03/21/19 03/21/19 03/21/19 11:15 17:50 23:27 WBC RBC Hgb Hct MCV MCHC RDW Plt Count [place] # Seg Neuts % (Manual) Lymphocytes % (Manual) Monocytes % (Manual) Nucleated RBC % Seg Neutrophils # Seg Neutrophils # Man Lymphocytes # (Manual) Monocytes # (Manual) INR POC ABG pH POC ABG pCO2 POC ABG pO2 Potassium Chloride Carbon Dioxide BUN Creatinine Glucose POC Glucose 255 H 263 H 202 H Lactic Acid Calcium Total Bilirubin AST ALT Lactate Dehydrogenase Total Creatine Kinase CK-MB (CK-2) Troponin T C-Reactive Protein Total Protein Albumin Cholesterol LDL Cholesterol Direct HDL Cholesterol Urine WBC (Auto) Crossmatch 03/22/19 03/22/19 03/22/19 05:43 11:50 13:50 WBC RBC Hgb Hct MCV MCHC RDW Plt Count [place] # Seg Neuts % (Manual) Lymphocytes % (Manual) Monocytes % (Manual) Nucleated RBC % Seg Neutrophils # Seg Neutrophils # Man Lymphocytes # (Manual) Monocytes # (Manual) INR POC ABG pH POC ABG pCO2 POC ABG pO2 Potassium Chloride Carbon Dioxide BUN Creatinine Glucose POC Glucose 254 H 241 H Lactic Acid Calcium Total Bilirubin AST ALT Lactate Dehydrogenase Total Creatine Kinase CK-MB (CK-2) Troponin T C-Reactive Protein 20.60 H Total Protein Albumin Cholesterol LDL Cholesterol Direct HDL Cholesterol Urine WBC (Auto) Crossmatch 03/22/19 03/22/19 03/22/19 13:50 18:13 23:58 WBC 23.3 H RBC 2.29 L Hgb 7.3 L Hct 21.7 L MCV 95 H MCHC RDW 18.0 H Plt Count 45 L [place] # Seg Neuts % (Manual) 1.0 L Lymphocytes % (Manual) 94.0 H Monocytes % (Manual) Nucleated RBC % 3.0 H Seg Neutrophils # Seg Neutrophils # Man 0.2 L Lymphocytes # (Manual) 21.9 H Monocytes # (Manual) 1.2 H INR POC ABG pH POC ABG pCO2 POC ABG pO2 Potassium Chloride Carbon Dioxide BUN Creatinine Glucose POC Glucose 194 H 190 H Lactic Acid Calcium Total Bilirubin AST ALT Lactate Dehydrogenase Total Creatine Kinase CK-MB (CK-2) Troponin T C-Reactive Protein Total Protein Albumin Cholesterol LDL Cholesterol Direct HDL Cholesterol Urine WBC (Auto) Crossmatch 03/23/19 03/23/19 03/23/19 04:00 04:10 05:26 WBC 33.9 H RBC 2.34 L Hgb 7.5 L Hct 22.5 L MCV 96 H MCHC RDW 18.4 H Plt Count 46 L [place] # Seg Neuts % (Manual) Lymphocytes % (Manual) Monocytes % (Manual) Nucleated RBC % Seg Neutrophils # Seg Neutrophils # Man Lymphocytes # (Manual) Monocytes # (Manual) INR POC ABG pH POC ABG pCO2 POC ABG pO2 Potassium Chloride Carbon Dioxide BUN 83 H Creatinine 7.3 H Glucose 135 H POC Glucose 152 H Lactic Acid Calcium 8.0 L Total Bilirubin AST ALT Lactate Dehydrogenase Total Creatine Kinase CK-MB (CK-2) Troponin T C-Reactive Protein Total Protein Albumin Cholesterol LDL Cholesterol Direct HDL Cholesterol Urine WBC (Auto) Crossmatch 03/23/19 13:12 WBC RBC Hgb Hct MCV MCHC RDW Plt Count [place] # Seg Neuts % (Manual) Lymphocytes % (Manual) Monocytes % (Manual) Nucleated RBC % Seg Neutrophils # Seg Neutrophils # Man Lymphocytes # (Manual) Monocytes # (Manual) INR POC ABG pH POC ABG pCO2 POC ABG pO2 Potassium Chloride Carbon Dioxide BUN Creatinine Glucose POC Glucose 202 H Lactic Acid Calcium Total Bilirubin AST ALT Lactate Dehydrogenase Total Creatine Kinase CK-MB (CK-2) Troponin T C-Reactive Protein Total Protein Albumin Cholesterol LDL Cholesterol Direct HDL Cholesterol Urine WBC (Auto) Crossmatch Allied health notes reviewed: nursing
[2019-03-24] MEDS: PROVENTIL IH SCH ×3 (00:30→16:10)
[2019-03-24] MEDS: HumaLOG SUB-Q SCH ×3 (01:29→12:59)
--- NOTE | 2019-03-24 07:15 | Hem/Onc Progress Note ---
Assessment and Plan 1. Anemia, leukopenia, thrombocytopenia. Peripheral smear mentions blasts. Flow - leukemia - verbal infor dr mai 2. CK was elevated, - LDH. - uric acid. As per the information available; 1. History of diabetes. 2. History of hypertension. 3. Coronary artery disease. 4. History of dental pain recently. 5. The patient had a cardiac arrest, status post cardiopulmonary resuscitation. 6. The patient is intubated. 7. Pericardial effusion. 8. Neurology note mentions semi-coma. We will follow the patient during inpatient stay. flow cytometry result - verbal info Dr Mai - AML?? - BMBx for subtyping. pt has poor Performance status - hospice an option on 03/22 - I had d/w daughter - his [employer] status will help us decide- 03/24 - neurology note mentions semi-coma family meeting planned d/w dr banda - Patient Problems (1) Leukocytosis Status: Acute Subjective Date of service: 03/24/19 Principal diagnosis: leukemia Interval history: on vent Objective - Exam Narrative Exam: Pain - pt non verbal General appearance intubated Performance status needs total care Eyes - no icterus ENT intubated LNs cervical not palpable Neck - not able to evalute fully Respiratory Normal Breath sounds - decreased air entry CVS S1 S2 + Extremities normal temperature General GI Soft Rectal deferred male - deferred Skin warm Musculoskeletal not moving Neurologically non verbal - on vent - Constitutional Vitals: Last Vital Signs Temp 99.7 F H 03/24/19 03:46 Pulse 105 H 03/24/19 06:00 Resp 26 H 03/24/19 06:00 BP 119/44 03/24/19 06:00 Pulse Ox 92 03/24/19 06:00 - Labs Lab Results: Laboratory Results - last 24 hr 03/23/19 03/23/19 03/23/19 13:12 17:22 22:51 POC Glucose 202 H 187 H 155 H 03/24/19 05:30 POC Glucose 185 H Medications & Allergies - Medications Allergies/Adverse Reactions: Allergies No Known Allergies Allergy (Verified 03/10/19 17:37) Home Medications: Home Medications Medication Instructions Recorded Confirmed Last Taken Type Allopurinol [Zyloprim] 300 mg PO DAILY 03/10/19 03/10/19 Unknown History Aspirin [Adult Aspirin] 81 mg PO DAILY 03/10/19 03/10/19 Unknown History Atorvastatin [Lipitor Tab] 80 mg PO DAILY 03/10/19 03/10/19 Unknown History Carvedilol [Coreg] 12.5 mg PO BID 03/10/19 03/10/19 Unknown History Clopidogrel [Plavix] 75 mg PO DAILY 03/10/19 03/10/19 Unknown History Gabapentin [Neurontin] 300 mg PO BID 03/10/19 03/10/19 Unknown History Insulin Lispro Protamin/Lispro 33 unit SQ BID 03/10/19 03/10/19 Unknown History [Humalog Mix 75-25 Vial] Lisinopril [Zestril TAB] 10 mg PO DAILY 03/10/19 03/10/19 Unknown History Pantoprazole [Protonix] 40 mg PO DAILY 03/10/19 03/10/19 Unknown History Sitagliptin Phosphate [Januvia] 50 mg PO DAILY 03/10/19 03/10/19 Unknown History Active Medications: Generic Name Dose Route Start Last Admin Trade Name Freq PRN Reason Stop Dose Admin Acetaminophen 650 mg 03/11/19 00:40 03/23/19 20:03 Tylenol PO 650 mg Q4H PRN Administration Pain MILD(1-3)/Fever >100.5/[place] Acetaminophen 650 mg 03/11/19 00:40 03/12/19 04:53 Tylenol [place] 650 mg Q4H PRN Administration Pain MILD(1-3)/Fever >100.5/[place] Albumin Human 12.5 gm 03/13/19 09:29 Alburx 25% (Albumin) IV [place] PRN Hypotension Albuterol 2.5 mg 03/17/19 16:00 03/24/19 00:30 Proventil IH 2.5 mg Q8HRT ROXANNE Administration Lipase/Protease/Amylase 1 each 03/15/19 13:[address] 10,500 Unit FEEDTUBE PRN PRN For Clogged Feeding Tube Dextrose 50 ml 03/11/19 00:44 D50w (25gm) Syringe IV PRN PRN Hypoglycemia Fentanyl 25 mcg 03/22/19 13:53 03/22/19 16:25 Sublimaze IV 25 mcg Q2H PRN Administration Pain, Moderate (4-6) Hydrophilic Ointment 1 applic 03/10/19 19:50 Vaseline Lip Therapy TP Q2HR PRN Dry Lips Propofol 1,000 mg in 100 mls @ 4.082 mls/hr 03/10/19 20:00 03/11/19 14:30 Diprivan 10 Mg/Ml IV Infused TITR ROXANNE Titration Protocol 5 MCG/KG/MIN Norepinephrine 4 mg in 250 mls @ 7.5 mls/hr 03/10/19 21:00 03/21/19 14:05 Levophed Drip 4 Mg/Ns 250 Ml IV 0 mcg/min TITR ROXANNE 0 mls/hr Titration Protocol 2 MCG/MIN Fentanyl Citrate 2,000 mcg in 100 mls @ 6.804 mls/hr 03/11/19 08:00 03/23/19 17:02 Fentanyl Drip Premix IV 1 mcg/kg/hr TITR ROXANNE 6.804 mls/hr Administration Protocol 1 MCG/KG/HR Sodium Chloride 100 mls @ 999 mls/hr 03/15/19 08:11 Nacl 0.9% IV DUKE PRN Hypotension Cefepime HCl 1 gm in 100 mls @ 200 mls/hr 03/23/19 13:00 03/23/19 13:19 Maxipime/Ns 1 Gm/100 Ml IV 200 mls/hr Q24HR ROXANNE Administration Protocol Vancomycin HCl 1 gm in 250 mls @ 125 mls/hr 03/24/19 20:00 Vancomycin/Ns 1 Gm/250 Ml IV MoWeFr [facility] Insulin Glargine 40 units 03/19/19 08:00 03/23/19 08:35 Lantus SUB-Q 40 units QAMDIAB [facility] Administration Insulin Human Lispro 0 unit 03/11/19 06:00 03/24/19 05:50 Humalog SUB-Q 3 unit Q6HR [facility] Administration Protocol Lansoprazole 30 mg 03/18/19 10:00 03/23/19 09:56 Prevacid Solutab FEEDTUBE 30 mg QDAY [facility] Administration Midodrine 10 mg 03/19/19 16:00 03/23/19 16:18 Proamatine PO 10 mg TID@0800,1200,1600 [facility] Administration Multi-Ingred Cream/Lotion/Oil/Oint 1 applic 03/10/19 19:50 Artificial Tears Ophth Oint OU Q4HR PRN Dry Eye(s) Ondansetron HCl 4 mg 03/11/19 00:40 03/19/19 21:53 Zofran IV 4 mg Q8H PRN Administration Nausea And Vomiting Simple Syrup 15 ml 03/15/19 13:21 Simple Syrup FEEDTUBE PRN PRN Hypoglycemia Simple Syrup 30 ml 03/15/19 13:21 Simple Syrup FEEDTUBE PRN PRN Hypoglycemia Sodium Bicarbonate 325 mg 03/15/19 13:21 Sodium Bicarbonate FEEDTUBE PRN PRN For Clogged Feeding Tube Sodium Chloride 10 ml 03/11/19 10:00 03/23/19 21:42 Sodium Chloride Flush Syringe 10 Ml IV 10 ml BID ROXANNE Administration Sodium Chloride 10 ml 03/11/19 00:40 Sodium Chloride Flush Syringe 10 Ml IV PRN PRN LINE FLUSH
--- NOTE | 2019-03-24 08:05 | Progress Note ---
Assessment and Plan - Patient Problems (1) Acute on chronic renal failure Current Visit: Yes Status: Acute Qualifiers: Chronic kidney disease stage: stage 3 (moderate) Plan to address problem: Likely secondary to acute tubular necrosis. Patient remains anuric. ANCA studies negative, complements within normal limits. Will maintain on MWF inpatient HD schedule with extra isolated UF sessions as necessary . (2) Hyperkalemia Current Visit: Yes Status: Acute Plan to address problem: Potassium levels stabilized on dialysis. (3) Cardiopulmonary arrest with successful resuscitation Current Visit: Yes Status: Acute Plan to address problem: Return of spontaneous circulation in the emergency room about 2 doses of epinephrine. Patient is off all pressors at this time and cardiology evaluation has been reviewed and noted. Patient also had a repeat echocardiogram done and reviewed with EF 40-45% and impaired relaxation noted. We'll follow up with further recommendations from cardiology standpoint. (4) Sepsis Current Visit: Yes Status: Acute Qualifiers: Sepsis type: Streptococcus group B Qualified Code(s): A40.1 - Sepsis due to streptococcus, group B Plan to address problem: Streptococcal bacteremia noted on initial blood cultures. Patient is on the antibiotics at this time per infectious disease recommendations. Please ensure that antibiotics are dosed appropriately for his decreased creatinine clearance and renal function. (5) Metabolic acidosis Current Visit: Yes Status: Acute Plan to address problem: Will address with hemodialysis. Bicarbonate gtt has been discontinued. (6) Hypotension Current Visit: Yes Status: Acute Qualifiers: Hypotension type: unspecified hypotension type Qualified Code(s): I95.9 - Hypotension, unspecified Plan to address problem: Patient has now been weaned off pressor support. Will continue to monitor closely. (7) Type 2 diabetes mellitus with diabetic chronic kidney disease Current Visit: Yes Status: Acute Qualifiers: Chronic kidney disease stage: stage 3 (moderate) Plan to address problem: diabetes management per primary attending. (8) Leukocytosis Current Visit: Yes Status: Acute Plan to address problem: Peripheral smear concerning for AML. Hematology/Oncology evaluation noted. Further recommendations per hematology/ oncology. Subjective Date of service: 03/24/19 Principal diagnosis: s/p cardiac arrest; acute hypoxemic resp failure; ISMAEL; hyperkalemia, Sepsis Interval history: No acute changes of a renal standpoint. He remains anuric at this time. New onset of fever noted. Blood cultures pending at this time. Objective - Vital Signs Vital signs: Vital Signs - 12hr 03/23/19 03/23/19 03/23/19 20:30 21:00 21:30 Temperature Pulse Rate 97 H 100 H 100 H Pulse Rate [ Anterior Bilateral Throughout] Pulse Rate [ From Monitor] Respiratory 31 H 32 H 32 H Rate Respiratory Rate [Anterior Bilateral Throughout] Blood Pressure 123/55 123/55 119/56 O2 Sat by Pulse 94 94 95 Oximetry 03/23/19 03/23/19 03/23/19 21:51 22:00 22:14 Temperature Pulse Rate 100 H 99 H 100 H Pulse Rate [ Anterior Bilateral Throughout] Pulse Rate [ From Monitor] Respiratory 34 H 33 H 34 H Rate Respiratory Rate [Anterior Bilateral Throughout] Blood Pressure 115/65 115/65 124/68 O2 Sat by Pulse 94 94 94 Oximetry 03/23/19 03/23/19 03/23/19 22:30 23:00 23:30 Temperature Pulse Rate 100 H 99 H 98 H Pulse Rate [ Anterior Bilateral Throughout] Pulse Rate [ From Monitor] Respiratory 33 H 33 H 32 H Rate Respiratory Rate [Anterior Bilateral Throughout] Blood Pressure 123/61 124/55 109/61 O2 Sat by Pulse 95 94 95 Oximetry 03/24/19 03/24/19 03/24/19 00:00 00:24 00:30 Temperature 99.3 F Pulse Rate 97 H 97 H 97 H Pulse Rate [ Anterior Bilateral Throughout] Pulse Rate [ 97 H From Monitor] Respiratory 31 H 29 H Rate Respiratory Rate [Anterior Bilateral Throughout] Blood Pressure 123/51 119/59 119/59 O2 Sat by Pulse 94 93 92 Oximetry 03/24/19 03/24/19 03/24/19 00:33 00:41 01:00 Temperature Pulse Rate 98 H Pulse Rate [ 99 H 96 H Anterior Bilateral Throughout] Pulse Rate [ From Monitor] Respiratory 30 H Rate Respiratory 27 H 28 H Rate [Anterior Bilateral Throughout] Blood Pressure 113/56 O2 Sat by Pulse 94 Oximetry 03/24/19 03/24/19 03/24/19 01:30 02:00 02:30 Temperature Pulse Rate 97 H 99 H 102 H Pulse Rate [ Anterior Bilateral Throughout] Pulse Rate [ From Monitor] Respiratory 29 H 33 H 27 H Rate Respiratory Rate [Anterior Bilateral Throughout] Blood Pressure 110/53 127/57 120/61 O2 Sat by Pulse 93 96 95 Oximetry 03/24/19 03/24/19 03/24/19 03:00 03:30 03:46 Temperature 99.7 F H Pulse Rate 105 H 106 H Pulse Rate [ Anterior Bilateral Throughout] Pulse Rate [ From Monitor] Respiratory 27 H 36 H Rate Respiratory Rate [Anterior Bilateral Throughout] Blood Pressure 111/58 125/48 O2 Sat by Pulse 94 94 Oximetry 03/24/19 03/24/19 03/24/19 04:00 04:15 04:30 Temperature Pulse Rate 105 H 104 H 104 H Pulse Rate [ Anterior Bilateral Throughout] Pulse Rate [ 105 H From Monitor] Respiratory 31 H 29 H Rate Respiratory Rate [Anterior Bilateral Throughout] Blood Pressure 135/48 110/56 131/59 O2 Sat by Pulse 95 96 95 Oximetry 03/24/19 03/24/19 03/24/19 05:00 05:30 06:00 Temperature Pulse Rate 105 H 106 H 105 H Pulse Rate [ Anterior Bilateral Throughout] Pulse Rate [ From Monitor] Respiratory 29 H 28 H 26 H Rate Respiratory Rate [Anterior Bilateral Throughout] Blood Pressure 125/65 119/62 119/44 O2 Sat by Pulse 95 92 92 Oximetry 03/24/19 03/24/19 03/24/19 07:16 07:18 07:26 Temperature Pulse Rate 109 H Pulse Rate [ 109 H 108 H Anterior Bilateral Throughout] Pulse Rate [ From Monitor] Respiratory Rate Respiratory 24 28 H Rate [Anterior Bilateral Throughout] Blood Pressure 114/50 O2 Sat by Pulse 109 H Oximetry - General Appearance General appearance: obese, chronically ill, intubated EENT: ATNC Neck: no JVD, no thyromegaly Respiratory: Present: Decreased Breath Sounds Cardiology: regular, S1S2 Gastrointestinal: normal Integumentary: warm and dry Neurologic: other (unresponsive, comatose) Musculoskeletal: other (2+ edema ) - Lab 03/23/19 04:10 03/23/19 04:00 Most recent lab results Calcium 8.0 mg/dL (8.4-10.2) L 03/23/19 04:00 Magnesium 1.80 mg/dL (1.7-2.3) 03/17/19 05:30 - Allied health notes Allied health notes reviewed: nursing Medications & Allergies - Medications Allergies/Adverse Reactions: Allergies No Known Allergies Allergy (Verified 03/10/19 17:37) Home Medications: Home Medications Medication Instructions Recorded Confirmed Last Taken Type Allopurinol [Zyloprim] 300 mg PO DAILY 03/10/19 03/10/19 Unknown History Aspirin [Adult Aspirin] 81 mg PO DAILY 03/10/19 03/10/19 Unknown History Atorvastatin [Lipitor Tab] 80 mg PO DAILY 03/10/19 03/10/19 Unknown History Carvedilol [Coreg] 12.5 mg PO BID 03/10/19 03/10/19 Unknown History Clopidogrel [Plavix] 75 mg PO DAILY 03/10/19 03/10/19 Unknown History Gabapentin [Neurontin] 300 mg PO BID 03/10/19 03/10/19 Unknown History Insulin Lispro Protamin/Lispro 33 unit SQ BID 03/10/19 03/10/19 Unknown History [Humalog Mix 75-25 Vial] Lisinopril [Zestril TAB] 10 mg PO DAILY 03/10/19 03/10/19 Unknown History Pantoprazole [Protonix] 40 mg PO DAILY 03/10/19 03/10/19 Unknown History Sitagliptin Phosphate [Januvia] 50 mg PO DAILY 03/10/19 03/10/19 Unknown History Active Medications: Generic Name Dose Route Start Last Admin Trade Name Freq PRN Reason Stop Dose Admin Acetaminophen 650 mg 03/11/19 00:40 03/23/19 20:03 Tylenol PO 650 mg Q4H PRN Administration Pain MILD(1-3)/Fever >100.5/[place] Acetaminophen 650 mg 03/11/19 00:40 03/12/19 04:53 Tylenol [place] 650 mg Q4H PRN Administration Pain MILD(1-3)/Fever >100.5/[place] Albumin Human 12.5 gm 03/13/19 09:29 Alburx 25% (Albumin) IV [place] PRN Hypotension Albuterol 2.5 mg 03/17/19 16:00 03/24/19 07:16 Proventil IH 2.5 mg Q8HRT ROXANNE Administration Lipase/Protease/Amylase 1 each 03/15/19 13:21 Pancrenydia Manzo 10,500 Unit FEEDTUBE PRN PRN For Clogged Feeding Tube Dextrose 50 ml 03/11/19 00:44 D50w (25gm) Syringe IV PRN PRN Hypoglycemia Fentanyl 25 mcg 03/22/19 13:53 03/22/19 16:25 Sublimaze IV 25 mcg Q2H PRN Administration Pain, Moderate (4-6) Hydrophilic Ointment 1 applic 03/10/19 19:50 Vaseline Lip Therapy TP Q2HR PRN Dry Lips Propofol 1,000 mg in 100 mls @ 4.082 mls/hr 03/10/19 20:00 03/11/19 14:30 Diprivan 10 Mg/Ml IV Infused TITR [facility] Titration Protocol 5 MCG/KG/MIN Norepinephrine 4 mg in 250 mls @ 7.5 mls/hr 03/10/19 21:00 03/21/19 14:05 Levophed Drip 4 Mg/Ns 250 Ml IV 0 mcg/min TITR R[facility] 0 mls/hr Titration Protocol 2 MCG/MIN Fentanyl Citrate 2,000 mcg in 100 mls @ 6.804 mls/hr 03/11/19 08:00 03/23/19 17:02 Fentanyl Drip Premix IV 1 mcg/kg/hr TITR ROXANNE 6.804 mls/hr Administration Protocol 1 MCG/KG/HR Sodium Chloride 100 mls @ 999 mls/hr 03/15/19 08:11 Nacl 0.9% IV [place] PRN Hypotension Cefepime HCl 1 gm in 100 mls @ 200 mls/hr 03/23/19 13:00 03/23/19 13:19 Maxipime/Ns 1 Gm/100 Ml IV 200 mls/hr Q24HR [facility] Administration Protocol Vancomycin HCl 1 gm in 250 mls @ 125 mls/hr 03/24/19 20:00 Vancomycin/Ns 1 Gm/250 Ml IV MoWeFr [facility] Insulin Glargine 40 units 03/19/19 08:00 03/23/19 08:35 Lantus SUB-Q 40 units QAMDIAB [facility] Administration Insulin Human Lispro 0 unit 03/11/19 06:00 03/24/19 05:50 Humalog SUB-Q 3 unit Q6HR [facility]NE Administration Protocol Lansoprazole 30 mg 03/18/19 10:00 03/23/19 09:56 Prevacid Solutab FEEDTUBE 30 mg QDAY [facility] Administration Midodrine 10 mg 03/19/19 16:00 03/23/19 16:18 Proamatine PO 10 mg TID@0800,1200,1600 [facility] Administration Multi-Ingred Cream/Lotion/Oil/Oint 1 applic 03/10/19 19:50 Artificial Tears Ophth Oint OU Q4HR PRN Dry Eye(s) Ondansetron HCl 4 mg 03/11/19 00:40 03/19/19 21:53 Zofran IV 4 mg Q8H PRN Administration Nausea And Vomiting Simple Syrup 15 ml 03/15/19 13:21 Simple Syrup FEEDTUBE PRN PRN Hypoglycemia Simple Syrup 30 ml 03/15/19 13:21 Simple Syrup FEEDTUBE PRN PRN Hypoglycemia Sodium Bicarbonate 325 mg 03/15/19 13:21 Sodium Bicarbonate FEEDTUBE PRN PRN For Clogged Feeding Tube Sodium Chloride 10 ml 03/11/19 10:00 03/23/19 21:42 Sodium Chloride Flush Syringe 10 Ml IV 10 ml BID ROX[facility]NE Administration Sodium Chloride 10 ml 03/11/19 00:40 Sodium Chloride Flush Syringe 10 Ml IV PRN PRN LINE FLUSH
[2019-03-24] MEDS: PROAMATINE PO SCH ×3 (09:00→15:44)
[2019-03-24] MEDS: SODIUM CHLORIDE FLUSH SYRINGE 10 ML IV SCH (09:01)
[2019-03-24] MEDS: LANTUS SUB-Q SCH (09:01)
[2019-03-24] MEDS: PREVACID SOLUTAB FEEDTUBE SCH (09:01)
[2019-03-24] MEDS: MAXIPIME/NS 1 GM/100 ML 1 GM/100 ML BAG IV SCH (09:01)
[2019-03-24] MEDS: TYLENOL PO PRN ×2 (09:26→12:58)
[2019-03-24] MEDS: fentaNYL DRIP Premix 2,000 MCG/100 ML BAG IV SCH (09:37)
--- NOTE | 2019-03-24 09:50 | Progress Note ---
Assessment and Plan Assessment and plan: Patient is a 54 yo man with a history of hypertension, DM type 2, CKD 3 and CAD s/p shents who presented to [facility] ED on 03/10/19 with SOB and cough. Dental pain with ?abscess preceded this illness. He had a PEA cardiac arrest in ED, was successfully resucitated, intubated, stated on vasopressor and admitted to ICU. He had whole body jerking in ED, ?seizure activity. * Initial CT chest wo contrast IMPRESSION: Small pericardial effusion ET in satisfactory position. Atelectasis posterior aspects of both lungs. * Initial CT abd/pelvis wo contrast IMPRESSION: Possible mild right colonic wall thickening and trace free fluid in the right paracolic gutter and pelvis may be infectious, inflammatory or ischemic in etiology. No pneumoperitoneum or focal fluid collection to suggest abscess. Mild pericholecystic edema. No calcified gallstones. If there is concern for cholecystitis, consider follow- up ultrasound and/or nuclear medicine hepatobiliary scan. Small pericardial effusion. Coronary and peripheral arterial disease. 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 Pulmonary following Severe Sepsis with Shock: off Vasopressors. ?Dental abscess vs Group A strep. ID following, continues on abx, No evidence of Endocarditis on TTE Multi system Organ failure, poa Acute combined heart failure, poa: Cardiology is following DM type 2 with hyperglycemia-POA: Lantus and adjust sliding scale Insulin severe Anemia- Transfused 1 units on 03/13/19 and 03/17/19, total of 2 units, monitor cbc closely Thrombocytopenia ?DIC secondary to underlying condition: Hold Antiplatelets Pericardial effusion: Cardiology following ARF/CKD 3 due to ATN, poa with suspected progression to ESRD: on HD, Nephrology is following Morbid obesity, bmi 55.9: Counselling when more awake Severe Protein calorie malnutrition, poa: Hospitalist Physician consult Acute Metabolic Encephalopathy: Neurology consulted, input noted, anoxic ischemic brain injury Diarrhea-C,DIFF RULED OUT- SHOCK LIVER-HEPATIC FAILURE-improve bp and follow CAD by hx-POA Sacral Pressure ulcer, poa- Wound care consulted, input noted poor prognosis d/w daughter Macrina and sister Nano at bedside on 03/20/19 d/w Dr. Cleaning on 03/21/19 peripheral flow cytometry suggestive of AML via verbal report from Dr. Hatch, Dr. Cleaning will discuss with daughter White blood count increasing with fevers, antibiotics changed by ID and ID is following. Dr. Cleaning to discussed with daughter, he doesn't want to start Chemo for AML because semi-comatose. He will be around tomorrow for family meeting at 7-8pm I spoke with Mary, her number is [phone]. Spoke with her. She was told that she had a family meeting today at 10 am and wants face to face meeting, I am not sure who called her for a family meeting. Dr. Cleaning did not. Care plan discussed. options discussed including, Withdrawal care, trachea/PEG, Hospice discussed. Daughter does not want to withdraw care. Consult General Surgery for tracheostomy and Consult GI for PEG, once fevers poor prognosis CCT 31 minutes History Interval history: Patient was seen and examined. Follow-up on current diagnosis Respiratory failure. No overnight events reported to me. Imaging, nursing note, chart, labs and old chart reviewed. It appears he has emesis overnight. Hospitalist Physical - Physical exam Narrative exam: Gen: critically ill appearing, bmi 55.9 HEENT: NCAT, EOMI, PERRL, OP Clear Neck: supple, no adenopathy, no thyromegaly, no JVD CVS/Heart: RRR, normal S1S2, pulses present bilaterally Chest/Lungs: diminished bs bilateral Symmetrical chest expansion, ok air entry bilaterally GI/Abdomen: soft, NTND, good bowel sounds, no guarding or rebound /Bladder: no suprapubic tenderness, no CVA or paraspinal tenderness Extermity/Skin: edema MSK: sedated Neuro: sedated Psych: sedated - Constitutional Vitals: Temp Pulse Resp BP Pulse Ox 101.1 F H 108 H 22 109/52 96 03/24/19 08:00 03/24/19 08:30 03/24/19 08:30 03/24/19 08:30 03/24/19 08:30 General appearance: Present: obese Results - Labs CBC & Chem 7: 03/23/19 04:10 03/23/19 04:00 Labs: Laboratory Last Values WBC 33.9 K/mm3 (4.5-11.0) H 03/23/19 04:10 RBC 2.34 M/mm3 (3.65-5.03) L 03/23/19 04:10 Hgb 7.5 gm/dl (11.8-15.2) L 03/23/19 04:10 Hct 22.5 % (35.5-45.6) L 03/23/19 04:10 MCV 96 fl (84-94) H 03/23/19 04:10 MCH 32 pg (28-32) 03/23/19 04:10 MCHC 33 % (32-34) 03/23/19 04:10 RDW 18.4 % (13.2-15.2) H 03/23/19 04:10 Plt Count 46 K/mm3 (140-440) L 03/23/19 04:10 [place] % (Auto) [place] 03/22/19 13:50 Eos % (Auto) 0.4 % (0.0-4.3) 03/10/19 17:57 [place] # 0.9 K/mm3 (0.0-0.8) H 03/10/19 17:57 Eos # 0.0 K/mm3 (0.0-0.4) 03/10/19 17:57 Baso # 0.0 K/mm3 (0.0-0.1) 03/10/19 17:57 Add Manual Diff Complete 03/22/19 13:50 Total Counted 100 03/22/19 13:50 Seg Neutrophils % [place] 03/22/19 13:50 Seg Neuts % (Manual) 1.0 % (40.0-70.0) L 03/22/19 13:50 0 % 03/22/19 13:50 94.0 % (13.4-35.0) H 03/22/19 13:50 Reactive Lymphs % (Man) 0 % 03/22/19 13:50 5.0 % (0.0-7.3) 03/22/19 13:50 0 % (0.0-4.3) 03/22/19 13:50 0 % (0.0-1.8) 03/22/19 13:50 0 % 03/22/19 13:50 0 % 03/22/19 13:50 0 % 03/22/19 13:50 0 % 03/22/19 13:50 Nucleated RBC % 3.0 % (0.0-0.9) H 03/22/19 13:50 Seg Neutrophils # 0.1 K/mm3 (1.8-7.7) L 03/10/19 17:57 Seg Neutrophils # Man 0.2 K/mm3 (1.8-7.7) L 03/22/19 13:50 Band Neutrophils # 0.0 K/mm3 03/22/19 13:50 21.9 K/mm3 (1.2-5.4) H 03/22/19 13:50 Abs React Lymphs (Man) 0.0 K/mm3 03/22/19 13:50 1.2 K/mm3 (0.0-0.8) H 03/22/19 13:50 0.0 K/mm3 (0.0-0.4) 03/22/19 13:50 0.0 K/mm3 (0.0-0.1) 03/22/19 13:50 0.0 K/mm3 03/22/19 13:50 0.0 K/mm3 03/22/19 13:50 0.0 K/mm3 03/22/19 13:50 Blast Cells # 0.0 K/mm3 03/22/19 13:50 Pathologist Review 03/10/19 17:57 WBC Morphology Not Reportable 03/22/19 13:50 Hypersegmented Neuts Not Reportable 03/22/19 13:50 Hyposegmented Neuts Not Reportable 03/22/19 13:50 Hypogranular Neuts Not Reportable 03/22/19 13:50 Not Reportable 03/22/19 13:50 Not Reportable 03/22/19 13:50 Not Reportable 03/22/19 13:50 Not Reportable 03/22/19 13:50 Not Reportable 03/22/19 13:50 Not Reportable 03/22/19 13:50 Consistent w auto 07/06/19 13:50 Not Reportable 03/22/19 13:50 Plt Clumps, EDTA Not Reportable 03/22/19 13:50 Not Reportable 03/22/19 13:50 Not Reportable 03/22/19 13:50 Not Reportable 03/22/19 13:50 Plt Morphology Comment Not Reportable 03/22/19 13:50 RBC Morphology Normal 03/22/19 13:50 Dimorphic RBCs Not Reportable 03/22/19 13:50 Not Reportable 03/22/19 13:50 Not Reportable 03/22/19 13:50 Not Reportable 03/22/19 13:50 Not Reportable 03/22/19 13:50 Not Reportable 03/22/19 13:50 Not Reportable 03/22/19 13:50 Not Reportable 03/22/19 13:50 Not Reportable 03/22/19 13:50 Not Reportable 03/22/19 13:50 Not Reportable 03/22/19 13:50 Not Reportable 03/22/19 13:50 Not Reportable 03/22/19 13:50 Not Reportable 03/22/19 13:50 Not Reportable 03/22/19 13:50 Not Reportable 03/22/19 13:50 Not Reportable 03/22/19 13:50 Not Reportable 03/22/19 13:50 Not Reportable 03/22/19 13:50 Not Reportable 03/22/19 13:50 Acanthocytes (Spur) Not Reportable 03/22/19 13:50 Rouleaux Not Reportable 03/22/19 13:50 Not Reportable 03/22/19 13:50 Not Reportable 03/22/19 13:50 Not Reportable 03/22/19 13:50 Not Reportable 03/22/19 13:50 Hem Pathologist Commnt No 03/22/19 13:50 PT 14.4 Sec. (12.2-14.9) 03/10/19 17:57 INR 1.15 (0.87-1.13) H 03/10/19 17:57 APTT 28.8 Sec. (24.2-36.6) 03/10/19 17:57 POC ABG pH 7.398 (7.35-7.45) 03/19/19 03:48 POC ABG pCO2 43.5 (35-45) 03/19/19 03:48 POC ABG pO2 80 (80-105) 03/19/19 03:48 POC ABG HCO3 26.8 (22-26 mml/L) 03/19/19 03:48 POC ABG Total CO2 28 (23-27mmol/L) 03/19/19 03:48 POC ABG O2 Sat 96 03/19/19 03:48 POC ABG Base Excess 2 ((-2) - (+3)mmol/L) 03/19/19 03:48 VBG pH 7.381 (7.320-7.420) 03/10/19 17:57 45 % 03/19/19 03:48 Sodium 141 mmol/L (137-145) 03/23/19 04:00 Potassium 4.9 mmol/L (3.6-5.0) 03/23/19 04:00 Chloride 99.3 mmol/L (98-107) 03/23/19 04:00 Carbon Dioxide 23 mmol/L (22-30) 03/23/19 04:00 24 mmol/L 03/23/19 04:00 BUN 83 mg/dL (9-20) H 03/23/19 04:00 7.3 mg/dL (0.8-1.5) H 03/23/19 04:00 Estimated GFR 8 ml/min 03/23/19 04:00 11 % 03/23/19 04:00 Glucose 135 mg/dL (75-100) H 03/23/19 04:00 POC Glucose 185 (70-105) H 03/24/19 05:30 Lactic Acid 1.70 mmol/L (0.7-2.0) 03/22/19 13:50 4.0 mg/dL (3.5-7.6) 03/19/19 06:15 Calcium 8.0 mg/dL (8.4-10.2) L 03/23/19 04:00 Magnesium 1.80 mg/dL (1.7-2.3) 03/17/19 05:30 0.50 mg/dL (0.1-1.2) 03/15/19 07:15 AST 522 units/L (5-40) H 03/15/19 07:15 ALT 474 units/L (7-56) H 03/15/19 07:15 129 units/L (35-129) 03/15/19 07:15 853 units/L (91-180) H 03/19/19 06:15 1156 units/L (55-170) H 03/11/19 06:07 CK-MB (CK-2) 4.6 ng/mL (0.0-4.0) H 03/11/19 06:07 CK-MB (CK-2) Rel Index 0.3 (0-4) 03/11/19 06:07 0.077 ng/mL (0.00-0.029) H 03/11/19 06:07 20.60 mg/dL (0.00-1.30) H 03/22/19 13:50 5.7 g/dL (6.3-8.2) L 03/15/19 07:15 2.4 g/dL (3.9-5) L 03/15/19 07:15 0.7 % 03/15/19 07:15 Triglycerides 91 mg/dL (2-149) 03/11/19 00:50 Cholesterol < 4 mg/dL (50-199) L 03/11/19 00:50 4 mg/dL (50-130) L 03/11/19 00:50 < 3 mg/dL (40-59) L 03/11/19 00:50 1.00 % 03/11/19 00:50 [place] (Yellow) 03/10/19 23:06 Cloudy (Clear) 03/10/19 23:06 5.0 (5.0-7.0) 03/10/19 23:06 Ur Specific [place] 1.016 (1.003-1.030) 03/10/19 23:06 >500 mg/dL (Negative) 03/10/19 23:06 Neg mg/dL (Negative) 03/10/19 23:06 Neg mg/dL (Negative) 03/10/19 23:06 Mod (Negative) 03/10/19 23:06 Neg (Negative) 03/10/19 23:06 Neg (Negative) 03/10/19 23:06 2.0 mg/dL (<2.0) 03/10/19 23:06 Ur Leukocyte Esterase Neg (Negative) 03/10/19 23:06 24.0 /HPF (0.0-6.0) H 03/10/19 23:06 24.0 /HPF (0.0-6.0) 03/10/19 23:06 U Epithel Cells (Auto) 4.0 /HPF (0-13.0) 03/10/19 23:06 Amorphous Crystals Few 03/10/19 23:06 Random Vancomycin 14 ug/mL (0-40.0) 03/12/19 05:06 Proteinase 3 (PR3) Ab <1.0 AI (<1.0) 03/13/19 09:11 Myeloperoxidase Ab <1.0 AI (<1.0) 03/13/19 09:11 86 mg/dL (82-185) 03/13/19 09:12 37 mg/dL (15-53) 03/13/19 09:12 C. difficile Tox (PCR) Negative (Negative) 03/11/19 Unknown Hepatitis A IgM Ab Non-reactive (NonReactive) 03/13/19 01:31 Hep Bs Antigen Non-reactive (Negative) 03/13/19 01:31 Hep B Core IgM Ab Non-reactive (NonReactive) 03/13/19 01:31 Non-reactive (NonReactive) 03/13/19 01:31 Influenza A (Rapid) Negative (Negative) 03/10/19 18:00 Influenza B (Rapid) Negative (Negative) 03/10/19 18:00 Blood Type A POSITIVE 03/17/19 13:06 Antibody Screen Negative 03/17/19 13:06 Crossmatch See Detail 03/17/19 13:06 Active Medications - Current Medications Current Medications: Generic Name Dose Route Start Last Admin Trade Name Freq PRN Reason Stop Dose Admin Acetaminophen 650 mg 03/11/19 00:40 03/24/19 09:26 Tylenol PO 650 mg Q4H PRN Administration Pain MILD(1-3)/Fever >100.5/[place] Acetaminophen 650 mg 03/11/19 00:40 03/12/19 04:53 Tylenol DE 650 mg Q4H PRN Administration Pain MILD(1-3)/Fever >100.5/[place] Albumin Human 12.5 gm 03/13/19 09:29 Alburx 25% (Albumin) IV DUKE PRN Hypotension Albuterol 2.5 mg 03/17/19 16:00 03/24/19 07:16 Proventil IH 2.5 mg Q8HRT ROXANNE Administration Lipase/Protease/Amylase 1 each 03/15/19 13:[address] 10,500 Unit FEEDTUBE PRN PRN For Clogged Feeding Tube Dextrose 50 ml 03/11/19 00:44 D50w (25gm) Syringe IV PRN PRN Hypoglycemia Fentanyl 25 mcg 03/22/19 13:53 03/22/19 16:25 Sublimaze IV 25 mcg Q2H PRN Administration Pain, Moderate (4-6) Hydrophilic Ointment 1 applic 03/10/19 19:50 Vaseline Lip Therapy TP Q2HR PRN Dry Lips Fentanyl Citrate 2,000 mcg in 100 mls @ 6.804 mls/hr 03/11/19 08:00 03/24/19 09:37 Fentanyl Drip Premix IV 1 mcg/kg/hr TITR ROXANNE 6.804 mls/hr Administration Protocol 1 MCG/KG/HR Sodium Chloride 100 mls @ 999 mls/hr 03/15/19 08:11 Nacl 0.9% IV DUKE PRN Hypotension Cefepime HCl 1 gm in 100 mls @ 200 mls/hr 03/23/19 13:00 03/24/19 09:01 Maxipime/Ns 1 Gm/100 Ml IV 200 mls/hr Q24HR ROXANNE Administration Protocol Vancomycin HCl 1 gm in 250 mls @ 125 mls/hr 03/24/19 20:00 Vancomycin/Ns 1 Gm/250 Ml IV MoWeFr [facility] Insulin Glargine 40 units 03/19/19 08:00 03/24/19 09:01 Lantus SUB-Q 40 units QAMDIAB ROXANNE Administration Insulin Human Lispro 0 unit 03/11/19 06:00 03/24/19 05:50 Humalog SUB-Q 3 unit Q6HR ROXANNE Administration Protocol Lansoprazole 30 mg 03/18/19 10:00 03/24/19 09:01 Prevacid Solutab FEEDTUBE 30 mg QDAY ROXANNE Administration Midodrine 10 mg 03/19/19 16:00 03/24/19 09:00 Proamatine PO 10 mg TID@0800,1200,1600 ROXANNE Administration Multi-Ingred Cream/Lotion/Oil/Oint 1 applic 03/10/19 19:50 Artificial Tears Ophth Oint OU Q4HR PRN Dry Eye(s) Ondansetron HCl 4 mg 03/11/19 00:40 03/19/19 21:53 Zofran IV 4 mg Q8H PRN Administration Nausea And Vomiting Simple Syrup 15 ml 03/15/19 13:21 Simple Syrup FEEDTUBE PRN PRN Hypoglycemia Simple Syrup 30 ml 03/15/19 13:21 Simple Syrup FEEDTUBE PRN PRN Hypoglycemia Sodium Bicarbonate 325 mg 03/15/19 13:21 Sodium Bicarbonate FEEDTUBE PRN PRN For Clogged Feeding Tube Sodium Chloride 10 ml 03/11/19 10:00 03/24/19 09:01 Sodium Chloride Flush Syringe 10 Ml IV 10 ml BID ROXANNE Administration Sodium Chloride 10 ml 03/11/19 00:40 Sodium Chloride Flush Syringe 10 Ml IV PRN PRN LINE FLUSH Nutrition/Malnutrition Assess - Dietary Evaluation Nutrition/Malnutrition Findings: Nutrition Notes Start: 03/12/19 11:38 Freq: Status: Active Protocol: Document 03/19/19 17:16 RM (Rec: 03/19/19 17:19 RM [id number]) Nutrition Notes Initial or Follow up Reassessment Current Diagnosis CKD(stage I-IV),Coronary Artery Disease,Diabetes,Sepsis ,Hypertension,Respiratory Failure Other Pertinent Diagnosis s/p cardiac arrest, anoxic brain injury Current Diet TF - Nepro at 45ml/hr Labs/Tests Reviewed Pertinent Medications Reviewed Height 5 ft 4 in Weight 147.8 kg [place] Body Weight (kg) 59.09 BMI 55.9 Subjective/Other Information Observed Nepro infusing at goal rate. Per nurse pt is tolerating TF. Percent of energy/protein needs met: 73% energy 71% pro Burn Absent Trauma Absent #1 Nutrition Diagnosis Inadequate oral intake Diagnosis Progress(for reassessment Continues documentation) Is patient on ventilator? Yes Is Patient Ambulatory and/or Out of Bed No REE-([facility]-confined to bed) [phone] Calculation Used for Recommendations 65-70% energy needs Additional Notes Energy needs: 3033-2628 kcal/ day Pro needs 1.2-1.4g/kg adjBW: 124-145g/day Fluid needs 1-1.5L/day Nutrition Intervention Nutrition Support: Continue Nepro at 45ml/hr with 120ml water flush q4h. Kcal 1,944 Protein (gm) 87 Carbohydrates (gm) 174 Fat (gm) 104 Fluid (mL) 785 Fiber (gm) 14 Goal #1 TF tolerance Goal #2 TF to meet nutrient needs as best possible Follow-Up By: 03/26/19 Additional Comments Follow for TF tolerance
[2019-03-24] MEDS ORDERED: NACL 0.9% 1000 ML 2,000 ML ONE (09:56)
--- NOTE | 2019-03-24 10:35 | Progress Note ---
Assessment and Plan Cultures: Blood culture 03/10/2019 Group-A Strep 2 of 4 bottles Tracheal asp 03/10/2019 poor specimen Blood culture 03/12/2019 no growth today C diff negative 03/14/2019 trach aspirate culture: no growth 03/23/2019 blood culture: in process Assessment: 54 y/o male with history of diabetes, hypertension, chronic kidney disease, coronary artery disease admitted on 03/10/2019 due to a week history of facial/mouth pain (?dental pain) associated with generalized weakness, cold sensation, cough with sputum production and body aches, 48 hour-history of sore throat, in the ED patient went into PEA arrest s/p CPR: 1) Severe Sepsis with PEA arrest and transient shock post arrest: Etiology like ly due to GAS bacteremia. Initial CXR and CT chest no consolidations. Intermittent fevers +. CXR increased left medial pleuroparietal opacity. 2) Invasive Group-A Strep bacteremia/toxic shock syndrome: source unclear ?tonsillopharingitis, ?dental abscess, ?early aspiration pneumonia. Blood cultur e 03/10/2019 Group-A Strep [address] face showed a small right mandibular premolar abscess, poor dentition and chronic sinusitis. TTE no vegetations. On ceftriaxone 3) Acute encephalopathy: not better; post arrest +/- due to infection ? ischemic brain injury. CT head some indistinctness and loss of dean-white matter differentiation and indistinct visualization of the basal ganglia. This is nonspecific finding but may be seen with diffuse hypoxic ischemic brain injury. 4) Acute respiratory failure: intubated. CT chest without contrast shows pericardial effusion measuring up to 1.4 cm in transverse diameter, posterior atelectasis both lungs. Minimal pleural fluid collection. 5) AML: per peripheral flow cytometry, Discussed with Dr. Cleaning. Extremely poor prognosis. 6) ISMAEL on CKD: renally adjusted meds. Now on HD through fem vas cath 7) Elevated LFTs: probably from shock and sepsis. Recommendations: - Continue IV cefepime renally adjusted and vancomycin with PK consult - if family does not agree with hospice, trach/PEG recommended. Given persistent fevers, consider exchange / removal of femoral vas cath and IJ central line - Extremely poor prognosis, recommend palliative care Dimple Horton MD, FACP [facility] C: [phone] O: [phone] F: [phone] Subjective Date of service: 03/24/19 Principal diagnosis: s/p cardiac arrest; acute hypoxemic resp failure; ISMAEL; hyperkalemia, Sepsis Interval history: Remains febrile. On the vent. On HD. Mental status poor and unchanged. Abx broadened over the weekend. Objective - Exam Narrative Exam: Physical Exam: Constitutional: intubated. Obese Head, Ears, Nose: Normocephalic, atraumatic. External ears, nose normal Eyes: Conjunctivae/corneas clear. No icterus. No ptosis. Neck: intubated Oral: intubated Cardiovascular: S1, S2 normal. Respiratory: Good air entry, clear to auscultation bilaterally GI: Soft, non-tender; bowel sounds normal. No peritoneal signs. Musculoskeletal: 1+ pedal edema. Obese Skin: No rash or abscess. Superficial wounds on sacral region Hem/Lymphatic: No palpable cervical or supraclavicular nodes. No lymphangitis Psych: no agitation Neurological: comatose, intubated, on vent - Constitutional Vitals: Vital Signs Temp Pulse Resp BP Pulse Ox 101.1 F H 108 H 22 109/52 96 03/24/19 08:00 03/24/19 08:30 03/24/19 08:30 03/24/19 08:30 03/24/19 08:30 Temperature -Last 24 Hours Temperature 101.1 F Temperature 99.7 F Temperature 99.3 F Temperature 100.4 F Temperature 99.6 F Temperature 99.7 F Temperature 99.2 F - Labs CBC & Chem 7: 03/23/19 04:10 03/23/19 04:00 Labs: Abnormal lab results 03/23/19 03/23/19 03/23/19 Range/Units 13:12 17:22 22:51 POC Glucose 202 H 187 H 155 H (70-105) 03/24/19 Range/Units 05:30 POC Glucose 185 H (70-105)
--- NOTE | 2019-03-24 11:48 | Progress Note ---
Assessment and Plan -s/p Cardiopulmonary arrest with ROSC -Acute on chronic hypoxemic respiratory failure on MVS -Severe sepsis with septic shock - Streptococcal -Acute on chronic renal failure (multifactorial) -Acute metabolic-toxic encephalopathy -Morbid obesity -h/o CAD s/p 2 stents -Pancytopenia- probably secondary to sepsis and underlying chronic liver disease/AML -Type 2 DM -h/o Alcohol abuse disorder -AML -Lung protective strategies -Vasopressor support as indicated to keep MAP>65 -Serial CXR and ABG -VAP bundle addressed -Critical care bundles addressed -Daily SATs and SBTs as tolerated -Supplemental oxygen to keep O2 sats 90-92% -Bronchodilators -Accuchecks with glycemic control. Target blood glucose <180mg/dL -Enteric nutrition with aspiration precautions, HOB>40 -Agitation management -Titrate sedation to RAAS 0 to -1 -Prevention of delirium, maintenance of sleep-wake cycle -Antibiotic therapy per ID -Trend hematologic indices -Avoid nephrotoxic agents, adjust all antibiotics and medications for CrCL and G FR -VTE ( SCDs) and Stress ulcer prophylaxis CONDITION: CRITICAL PROGNOSIS: GUARDED-GRAVE CODE STATUS: FULL CODE Discussed extensively with the patient's daughter and his sister who were at the bedside. A family meeting in the conference room with case management, ICU director, Dr. Roque and the patient's nurse. I discussed the poor prognosis, his multi-organ dysfunction and AML. The daughter staes that her father would not want to,live like this. His sister, wanted more time to see if he would turn around. At the end of the discussion, they decided that in juan event he had a cardiac arrest he was to be DNAR. They will get back to me tomorrow about goals of care/withdrawal of care/hospic e. All their questions were answered. The high probability of a clinically significant, sudden or life-threatening deterioration of the [respiratory, cardiovascular, renal, neurology] system(s) required my full and direct attention, intervention and personal management. The aggregate critical care time was [35 ] minutes without overlap. Time includes spent on; [x] Data Review and interpretation [x] Patient assessment and monitoring of vital signs [x] Documentation [x] Medication orders and management Subjective Date of service: 03/24/19 Principal diagnosis: high wbc - blasts Interval history: Patient is seen today for: s/p cardiopulmonary arrest, acute hypoxemic respiratory failure, ISMAEL, Severe hyperkalemia, Severe sepsis; ISMAEL onCKD on HD Seen and examined at bedside; 24hour events reviewed; nursing and respiratory care staff consulted; no adverse overnight events reported to me; vitals, labs, medications, chart reviewed. Temperature spike to 100.4, no vomiting, opens eyes spontaneously Remains critically ill. On full mechanical ventilatory support AC 12/450/6/35% ETT 7.5cm at 23cm at the lip. Off fentanyl infusion, remains unresponsive Off vasopressor support, on going fevers, Discussed with RT/RN at the bedside Hematology states flow cytometry shows AML Objective Vital Signs - 12hr 03/24/19 03/24/19 03/24/19 00:00 00:24 00:30 Temperature 99.3 F Pulse Rate 97 H 97 H 97 H Pulse Rate [ Anterior Bilateral Throughout] Pulse Rate [ 97 H From Monitor] Respiratory 31 H 29 H Rate Respiratory Rate [Anterior Bilateral Throughout] Blood Pressure 123/51 119/59 119/59 O2 Sat by Pulse 94 93 92 Oximetry O2 Sat by Pulse Oximetry [ Anterior Bilateral Throughout] 03/24/19 03/24/19 03/24/19 00:33 00:41 01:00 Temperature Pulse Rate 98 H Pulse Rate [ 99 H 96 H Anterior Bilateral Throughout] Pulse Rate [ From Monitor] Respiratory 30 H Rate Respiratory 27 H 28 H Rate [Anterior Bilateral Throughout] Blood Pressure 113/56 O2 Sat by Pulse 94 Oximetry O2 Sat by Pulse Oximetry [ Anterior Bilateral Throughout] 03/24/19 03/24/19 03/24/19 01:30 02:00 02:30 Temperature Pulse Rate 97 H 99 H 102 H Pulse Rate [ Anterior Bilateral Throughout] Pulse Rate [ From Monitor] Respiratory 29 H 33 H 27 H Rate Respiratory Rate [Anterior Bilateral Throughout] Blood Pressure 110/53 127/57 120/61 O2 Sat by Pulse 93 96 95 Oximetry O2 Sat by Pulse Oximetry [ Anterior Bilateral Throughout] 03/24/19 03/24/19 03/24/19 03:00 03:30 03:46 Temperature 99.7 F H Pulse Rate 105 H 106 H Pulse Rate [ Anterior Bilateral Throughout] Pulse Rate [ From Monitor] Respiratory 27 H 36 H Rate Respiratory Rate [Anterior Bilateral Throughout] Blood Pressure 111/58 125/48 O2 Sat by Pulse 94 94 Oximetry O2 Sat by Pulse Oximetry [ Anterior Bilateral Throughout] 03/24/19 03/24/19 03/24/19 04:00 04:15 04:30 Temperature Pulse Rate 105 H 104 H 104 H Pulse Rate [ Anterior Bilateral Throughout] Pulse Rate [ 105 H From Monitor] Respiratory 31 H 29 H Rate Respiratory Rate [Anterior Bilateral Throughout] Blood Pressure 135/48 110/56 131/59 O2 Sat by Pulse 95 96 95 Oximetry O2 Sat by Pulse Oximetry [ Anterior Bilateral Throughout] 03/24/19 03/24/19 03/24/19 05:00 05:30 06:00 Temperature Pulse Rate 105 H 106 H 105 H Pulse Rate [ Anterior Bilateral Throughout] Pulse Rate [ From Monitor] Respiratory 29 H 28 H 26 H Rate Respiratory Rate [Anterior Bilateral Throughout] Blood Pressure 125/65 119/62 119/44 O2 Sat by Pulse 95 92 92 Oximetry O2 Sat by Pulse Oximetry [ Anterior Bilateral Throughout] 03/24/19 03/24/19 03/24/19 06:30 07:00 07:16 Temperature Pulse Rate 106 H 108 H Pulse Rate [ 109 H Anterior Bilateral Throughout] Pulse Rate [ From Monitor] Respiratory 26 H 25 H Rate Respiratory 24 Rate [Anterior Bilateral Throughout] Blood Pressure 119/49 103/49 O2 Sat by Pulse 94 93 Oximetry O2 Sat by Pulse Oximetry [ Anterior Bilateral Throughout] 03/24/19 03/24/19 03/24/19 07:18 07:26 07:30 Temperature Pulse Rate 109 H 111 H Pulse Rate [ 108 H Anterior Bilateral Throughout] Pulse Rate [ From Monitor] Respiratory 20 Rate Respiratory 28 H Rate [Anterior Bilateral Throughout] Blood Pressure 114/50 107/62 O2 Sat by Pulse 100 93 Oximetry O2 Sat by Pulse Oximetry [ Anterior Bilateral Throughout] 03/24/19 03/24/19 03/24/19 08:00 08:30 09:45 Temperature 101.1 F H 101.5 F H Pulse Rate 108 H 108 H 108 H Pulse Rate [ Anterior Bilateral Throughout] Pulse Rate [ 108 H From Monitor] Respiratory 26 H 22 20 Rate Respiratory Rate [Anterior Bilateral Throughout] Blood Pressure 111/52 109/52 95/54 O2 Sat by Pulse 95 96 Oximetry O2 Sat by Pulse 100 Oximetry [ Anterior Bilateral Throughout] 03/24/19 03/24/19 03/24/19 09:50 10:00 10:15 Temperature Pulse Rate 106 H 105 H 105 H Pulse Rate [ Anterior Bilateral Throughout] Pulse Rate [ From Monitor] Respiratory Rate Respiratory Rate [Anterior Bilateral Throughout] Blood Pressure 113/52 96/47 106/63 O2 Sat by Pulse Oximetry O2 Sat by Pulse Oximetry [ Anterior Bilateral Throughout] 03/24/19 03/24/19 03/24/19 10:30 10:45 11:00 Temperature Pulse Rate 108 H 106 H 106 H Pulse Rate [ Anterior Bilateral Throughout] Pulse Rate [ From Monitor] Respiratory Rate Respiratory Rate [Anterior Bilateral Throughout] Blood Pressure 96/49 109/56 105/42 O2 Sat by Pulse Oximetry O2 Sat by Pulse Oximetry [ Anterior Bilateral Throughout] 03/24/19 03/24/19 03/24/19 11:15 11:27 11:30 Temperature Pulse Rate 110 H 110 H 108 H Pulse Rate [ Anterior Bilateral Throughout] Pulse Rate [ From Monitor] Respiratory Rate Respiratory Rate [Anterior Bilateral Throughout] Blood Pressure 102/62 102/61 121/58 O2 Sat by Pulse 97 Oximetry O2 Sat by Pulse Oximetry [ Anterior Bilateral Throughout] Constitutional: appears uncomfortable, other (m,iddle aged morbidly obese CM, normocephalic with mildly increased resp effort at rest on MVS) Eyes: non-icteric ENT: oropharynx moist, other (ETT 7.5 at 23 cm at the lip) Neck: supple, no lymphadenopathy, no JVD, other (large neck circumference) Effort: mildly labored Ascultation: Bilateral: diminished breath sounds, rhonchi (bases) Percussion: Bilateral: not dull Cardiovascular: regular rate and rhythm, other (No R/M) Gastrointestinal: normoactive bowel sounds, soft, non-tender, non-distended Integumentary: normal Extremities: no cyanosis, pink and warm, pulses normal, no ischemia or petechiae Neurologic: pupils equal and round, unable to assess, other (Encephalopathic) Psychiatric: other (unable to assess) CBC and BMP: 03/23/19 04:10 03/23/19 04:00 ABG, PT/INR, D-dimer: ABG POC ABG pH 7.398 (7.35-7.45) 03/19/19 03:48 POC ABG pCO2 43.5 (35-45) 03/19/19 03:48 POC ABG pO2 80 (80-105) 03/19/19 03:48 POC ABG HCO3 26.8 (22-26 mml/L) 03/19/19 03:48 POC ABG Total CO2 28 (23-27mmol/L) 03/19/19 03:48 POC ABG O2 Sat 96 03/19/19 03:48 PT/INR, D-dimer PT 14.4 Sec. (12.2-14.9) 03/10/19 17:57 INR 1.15 (0.87-1.13) H 03/10/19 17:57 Abnormal lab findings: Abnormal Labs 03/10/19 03/10/19 03/10/19 17:57 17:57 17:57 WBC 1.2 L* RBC 2.46 L Hgb 7.9 L Hct 23.2 L MCV MCHC RDW 18.2 H Plt Count 47 L [place] # 0.9 H Seg Neuts % (Manual) 6.0 L Lymphocytes % (Manual) 74.0 H Monocytes % (Manual) 20.0 H Nucleated RBC % Seg Neutrophils # 0.1 L Seg Neutrophils # Man 0.1 L Lymphocytes # (Manual) 0.9 L Monocytes # (Manual) INR POC ABG pH POC ABG pCO2 POC ABG pO2 Potassium Chloride Carbon Dioxide BUN 46 H Creatinine 2.9 H Glucose 200 H POC Glucose Lactic Acid 2.50 H* Calcium 7.6 L Total Bilirubin AST ALT Lactate Dehydrogenase Total Creatine Kinase CK-MB (CK-2) Troponin T C-Reactive Protein Total Protein Albumin 3.2 L Cholesterol LDL Cholesterol Direct HDL Cholesterol Urine WBC (Auto) Crossmatch 03/10/19 03/10/19 03/10/19 17:57 18:01 18:52 WBC RBC Hgb Hct MCV MCHC RDW Plt Count [place] # Seg Neuts % (Manual) Lymphocytes % (Manual) Monocytes % (Manual) Nucleated RBC % Seg Neutrophils # Seg Neutrophils # Man Lymphocytes # (Manual) Monocytes # (Manual) INR 1.15 H POC ABG pH POC ABG pCO2 POC ABG pO2 Potassium Chloride Carbon Dioxide BUN Creatinine Glucose POC Glucose 234 H Lactic Acid Calcium Total Bilirubin AST ALT Lactate Dehydrogenase Total Creatine Kinase CK-MB (CK-2) Troponin T C-Reactive Protein Total Protein Albumin Cholesterol LDL Cholesterol Direct HDL Cholesterol Urine WBC (Auto) Crossmatch See Detail 03/10/19 03/10/19 03/10/19 19:16 21:32 23:06 WBC RBC Hgb Hct MCV MCHC RDW Plt Count [place] # Seg Neuts % (Manual) Lymphocytes % (Manual) Monocytes % (Manual) Nucleated RBC % Seg Neutrophils # Seg Neutrophils # Man Lymphocytes # (Manual) Monocytes # (Manual) INR POC ABG pH POC ABG pCO2 POC ABG pO2 315 H Potassium Chloride Carbon Dioxide BUN Creatinine Glucose POC Glucose Lactic Acid 2.80 H* Calcium Total Bilirubin AST ALT Lactate Dehydrogenase Total Creatine Kinase CK-MB (CK-2) Troponin T C-Reactive Protein Total Protein Albumin Cholesterol LDL Cholesterol Direct HDL Cholesterol Urine WBC (Auto) 24.0 H Crossmatch 03/10/19 03/11/19 03/11/19 23:29 00:50 05:01 WBC RBC 2.29 L Hgb 7.3 L Hct 22.2 L MCV 97 H MCHC RDW 18.2 H Plt Count 40 L [place] # Seg Neuts % (Manual) 8.0 L Lymphocytes % (Manual) 67.0 H Monocytes % (Manual) 24.0 H Nucleated RBC % 5.0 H Seg Neutrophils # Seg Neutrophils # Man 0.4 L Lymphocytes # (Manual) Monocytes # (Manual) 1.2 H INR POC ABG pH POC ABG pCO2 POC ABG pO2 Potassium Chloride Carbon Dioxide BUN Creatinine Glucose POC Glucose 237 H Lactic Acid Calcium Total Bilirubin AST ALT Lactate Dehydrogenase Total Creatine Kinase 513 H CK-MB (CK-2) Troponin T 0.075 H C-Reactive Protein Total Protein Albumin Cholesterol < 4 L LDL Cholesterol Direct 4 L HDL Cholesterol < 3 L Urine WBC (Auto) Crossmatch 03/11/19 03/11/19 03/11/19 05:01 06:06 06:07 WBC RBC Hgb Hct MCV MCHC RDW Plt Count [place] # Seg Neuts % (Manual) Lymphocytes % (Manual) Monocytes % (Manual) Nucleated RBC % Seg Neutrophils # Seg Neutrophils # Man Lymphocytes # (Manual) Monocytes # (Manual) INR POC ABG pH POC ABG pCO2 32.8 L POC ABG pO2 Potassium 5.3 H Chloride Carbon Dioxide 19 L BUN 49 H Creatinine 3.7 H Glucose 203 H POC Glucose Lactic Acid Calcium 7.1 L Total Bilirubin AST ALT Lactate Dehydrogenase Total Creatine Kinase 1156 H CK-MB (CK-2) 4.6 H Troponin T 0.077 H C-Reactive Protein Total Protein Albumin Cholesterol LDL Cholesterol Direct HDL Cholesterol Urine WBC (Auto) Crossmatch 0603/11/19 03/11/19 06:35 13:07 18:36 WBC RBC Hgb Hct MCV MCHC RDW Plt Count [place] # Seg Neuts % (Manual) Lymphocytes % (Manual) Monocytes % (Manual) Nucleated RBC % Seg Neutrophils # Seg Neutrophils # Man Lymphocytes # (Manual) Monocytes # (Manual) INR POC ABG pH POC ABG pCO2 POC ABG pO2 Potassium Chloride Carbon Dioxide BUN Creatinine Glucose POC Glucose 209 H 185 H 126 H Lactic Acid Calcium Total Bilirubin AST ALT Lactate Dehydrogenase Total Creatine Kinase CK-MB (CK-2) Troponin T C-Reactive Protein Total Protein Albumin Cholesterol LDL Cholesterol Direct HDL Cholesterol Urine WBC (Auto) Crossmatch 03/11/19 03/12/19 03/12/19 23:45 04:25 05:06 WBC RBC 2.24 L Hgb 7.2 L Hct 21.9 L MCV 98 H MCHC RDW 18.3 H Plt Count 38 L [place] # Seg Neuts % (Manual) 4.0 L Lymphocytes % (Manual) Monocytes % (Manual) 69.0 H Nucleated RBC % Seg Neutrophils # Seg Neutrophils # Man 0.3 L Lymphocytes # (Manual) Monocytes # (Manual) 4.9 H INR POC ABG pH 7.320 L POC ABG pCO2 POC ABG pO2 Potassium Chloride Carbon Dioxide BUN Creatinine Glucose POC Glucose 137 H Lactic Acid Calcium Total Bilirubin AST ALT Lactate Dehydrogenase Total Creatine Kinase CK-MB (CK-2) Troponin T C-Reactive Protein Total Protein Albumin Cholesterol LDL Cholesterol Direct HDL Cholesterol Urine WBC (Auto) Crossmatch 03/12/19 03/12/19 03/12/19 05:06 05:57 07:19 WBC RBC Hgb Hct MCV MCHC RDW Plt Count [place] # Seg Neuts % (Manual) Lymphocytes % (Manual) Monocytes % (Manual) Nucleated RBC % Seg Neutrophils # Seg Neutrophils # Man Lymphocytes # (Manual) Monocytes # (Manual) INR POC ABG pH POC ABG pCO2 POC ABG pO2 Potassium 6.6 H* D 6.6 H* Chloride Carbon Dioxide 17 L BUN 66 H Creatinine 5.6 H D Glucose 149 H POC Glucose 165 H Lactic Acid Calcium 6.5 L Total Bilirubin 1.90 H AST 782 H ALT 382 H Lactate Dehydrogenase Total Creatine Kinase CK-MB (CK-2) Troponin T C-Reactive Protein Total Protein 5.7 L Albumin 2.7 L Cholesterol LDL Cholesterol Direct HDL Cholesterol Urine WBC (Auto) Crossmatch 03/12/19 03/12/19 03/12/19 15:24 18:55 23:45 WBC RBC Hgb Hct MCV MCHC RDW Plt Count [place] # Seg Neuts % (Manual) Lymphocytes % (Manual) Monocytes % (Manual) Nucleated RBC % Seg Neutrophils # Seg Neutrophils # Man Lymphocytes # (Manual) Monocytes # (Manual) INR POC ABG pH POC ABG pCO2 POC ABG pO2 Potassium Chloride Carbon Dioxide BUN Creatinine Glucose POC Glucose 167 H 212 H 197 H Lactic Acid Calcium Total Bilirubin AST ALT Lactate Dehydrogenase Total Creatine Kinase CK-MB (CK-2) Troponin T C-Reactive Protein Total Protein Albumin Cholesterol LDL Cholesterol Direct HDL Cholesterol Urine WBC (Auto) Crossmatch 03/13/19 03/13/19 03/13/19 05:37 09:11 09:11 WBC RBC 1.99 L Hgb 6.4 L Hct 18.7 L* MCV MCHC RDW 18.5 H Plt Count 36 L [place] # Seg Neuts % (Manual) Lymphocytes % (Manual) Monocytes % (Manual) Nucleated RBC % Seg Neutrophils # Seg Neutrophils # Man Lymphocytes # (Manual) Monocytes # (Manual) INR POC ABG pH POC ABG pCO2 POC ABG pO2 Potassium Chloride Carbon Dioxide BUN 52 H Creatinine 5.5 H Glucose 235 H POC Glucose 250 H Lactic Acid Calcium 6.2 L Total Bilirubin AST ALT Lactate Dehydrogenase Total Creatine Kinase CK-MB (CK-2) Troponin T C-Reactive Protein Total Protein Albumin Cholesterol LDL Cholesterol Direct HDL Cholesterol Urine WBC (Auto) Crossmatch 03/13/19 03/13/19 03/13/19 11:06 12:38 18:11 WBC RBC 2.07 L Hgb 6.6 L Hct 19.6 L* MCV 95 H MCHC RDW 18.5 H Plt Count 33 L [place] # Seg Neuts % (Manual) Lymphocytes % (Manual) Monocytes % (Manual) Nucleated RBC % Seg Neutrophils # Seg Neutrophils # Man Lymphocytes # (Manual) Monocytes # (Manual) INR POC ABG pH POC ABG pCO2 POC ABG pO2 Potassium Chloride Carbon Dioxide BUN Creatinine Glucose POC Glucose 268 H 255 H Lactic Acid Calcium Total Bilirubin AST ALT Lactate Dehydrogenase Total Creatine Kinase CK-MB (CK-2) Troponin T C-Reactive Protein Total Protein Albumin Cholesterol LDL Cholesterol Direct HDL Cholesterol Urine WBC (Auto) Crossmatch 03/13/19 03/13/1919 19:12 20:58 23:49 WBC RBC Hgb Hct MCV MCHC RDW Plt Count [place] # Seg Neuts % (Manual) Lymphocytes % (Manual) Monocytes % (Manual) Nucleated RBC % Seg Neutrophils # Seg Neutrophils # Man Lymphocytes # (Manual) Monocytes # (Manual) INR POC ABG pH 7.466 H POC ABG pCO2 POC ABG pO2 Potassium Chloride Carbon Dioxide BUN Creatinine Glucose POC Glucose 289 H Lactic Acid Calcium Total Bilirubin AST ALT Lactate Dehydrogenase Total Creatine Kinase CK-MB (CK-2) Troponin T C-Reactive Protein Total Protein Albumin Cholesterol LDL Cholesterol Direct HDL Cholesterol Urine WBC (Auto) Crossmatch See Detail 03/14/19 03/14/19 03/14/19 05:51 11:39 13:43 WBC 14.0 H RBC 2.78 L Hgb 8.9 L Hct 26.0 L D MCV MCHC RDW 17.9 H Plt Count 42 L [place] # Seg Neuts % (Manual) 2.0 L Lymphocytes % (Manual) 84.0 H Monocytes % (Manual) 13.0 H Nucleated RBC % Seg Neutrophils # Seg Neutrophils # Man 0.3 L Lymphocytes # (Manual) 11.8 H Monocytes # (Manual) 1.8 H INR POC ABG pH POC ABG pCO2 POC ABG pO2 Potassium Chloride Carbon Dioxide BUN Creatinine Glucose POC Glucose 305 H 283 H Lactic Acid Calcium Total Bilirubin AST ALT Lactate Dehydrogenase Total Creatine Kinase CK-MB (CK-2) Troponin T C-Reactive Protein Total Protein Albumin Cholesterol LDL Cholesterol Direct HDL Cholesterol Urine WBC (Auto) Crossmatch 03/14/19 03/15/19 03/15/19 18:12 00:43 04:24 WBC RBC Hgb Hct MCV MCHC RDW Plt Count [place] # Seg Neuts % (Manual) Lymphocytes % (Manual) Monocytes % (Manual) Nucleated RBC % Seg Neutrophils # Seg Neutrophils # Man Lymphocytes # (Manual) Monocytes # (Manual) INR POC ABG pH 7.497 H POC ABG pCO2 34.0 L POC ABG pO2 Potassium Chloride Carbon Dioxide BUN Creatinine Glucose POC Glucose 313 H 236 H Lactic Acid Calcium Total Bilirubin AST ALT Lactate Dehydrogenase Total Creatine Kinase CK-MB (CK-2) Troponin T C-Reactive Protein Total Protein Albumin Cholesterol LDL Cholesterol Direct HDL Cholesterol Urine WBC (Auto) Crossmatch 03/15/19 03/15/19 03/15/19 07:15 07:15 07:24 WBC 16.1 H RBC 2.50 L Hgb 8.1 L Hct 23.4 L MCV MCHC 35 H RDW 18.5 H Plt Count 42 L [place] # Seg Neuts % (Manual) 2.0 L Lymphocytes % (Manual) 41.0 H Monocytes % (Manual) 11.0 H Nucleated RBC % Seg Neutrophils # Seg Neutrophils # Man 0.3 L Lymphocytes # (Manual) 6.6 H Monocytes # (Manual) 1.8 H INR POC ABG pH POC ABG pCO2 POC ABG pO2 Potassium Chloride 96.0 L Carbon Dioxide BUN 47 H Creatinine 5.0 H Glucose 287 H POC Glucose 285 H Lactic Acid Calcium 7.2 L D Total Bilirubin AST 522 H ALT 474 H Lactate Dehydrogenase Total Creatine Kinase CK-MB (CK-2) Troponin T C-Reactive Protein Total Protein 5.7 L Albumin 2.4 L Cholesterol LDL Cholesterol Direct HDL Cholesterol Urine WBC (Auto) Crossmatch 03/15/19 03/15/19 03/15/19 11:18 17:12 23:19 WBC RBC Hgb Hct MCV MCHC RDW Plt Count [place] # Seg Neuts % (Manual) Lymphocytes % (Manual) Monocytes % (Manual) Nucleated RBC % Seg Neutrophils # Seg Neutrophils # Man Lymphocytes # (Manual) Monocytes # (Manual) INR POC ABG pH POC ABG pCO2 POC ABG pO2 Potassium Chloride Carbon Dioxide BUN Creatinine Glucose POC Glucose 287 H 221 H 297 H Lactic Acid Calcium Total Bilirubin AST ALT Lactate Dehydrogenase Total Creatine Kinase CK-MB (CK-2) Troponin T C-Reactive Protein Total Protein Albumin Cholesterol LDL Cholesterol Direct HDL Cholesterol Urine WBC (Auto) Crossmatch 03/16/19 03/16/19 03/16/19 03:49 05:26 11:26 WBC RBC Hgb Hct MCV MCHC RDW Plt Count [place] # Seg Neuts % (Manual) Lymphocytes % (Manual) Monocytes % (Manual) Nucleated RBC % Seg Neutrophils # Seg Neutrophils # Man Lymphocytes # (Manual) Monocytes # (Manual) INR POC ABG pH 7.487 H POC ABG pCO2 34.3 L POC ABG pO2 254 H Potassium Chloride Carbon Dioxide BUN Creatinine Glucose POC Glucose 271 H 298 H Lactic Acid Calcium Total Bilirubin AST ALT Lactate Dehydrogenase Total Creatine Kinase CK-MB (CK-2) Troponin T C-Reactive Protein Total Protein Albumin Cholesterol LDL Cholesterol Direct HDL Cholesterol Urine WBC (Auto) Crossmatch 03/16/19 03/16/19 03/17/19 17:55 23:47 04:08 WBC RBC Hgb Hct MCV MCHC RDW Plt Count [place] # Seg Neuts % (Manual) Lymphocytes % (Manual) Monocytes % (Manual) Nucleated RBC % Seg Neutrophils # Seg Neutrophils # Man Lymphocytes # (Manual) Monocytes # (Manual) INR POC ABG pH 7.491 H POC ABG pCO2 31.1 L POC ABG pO2 70 L Potassium Chloride Carbon Dioxide BUN Creatinine Glucose POC Glucose 304 H 260 H Lactic Acid Calcium Total Bilirubin AST ALT Lactate Dehydrogenase Total Creatine Kinase CK-MB (CK-2) Troponin T C-Reactive Protein Total Protein Albumin Cholesterol LDL Cholesterol Direct HDL Cholesterol Urine WBC (Auto) Crossmatch 03/17/19 03/17/19 03/17/19 05:30 05:30 05:55 WBC 18.8 H RBC 2.13 L Hgb 6.9 L Hct 20.0 L MCV MCHC 35 H RDW 18.4 H Plt Count 34 L [place] # Seg Neuts % (Manual) Lymphocytes % (Manual) Monocytes % (Manual) Nucleated RBC % Seg Neutrophils # Seg Neutrophils # Man Lymphocytes # (Manual) Monocytes # (Manual) INR POC ABG pH POC ABG pCO2 POC ABG pO2 Potassium 3.5 L Chloride 96.6 L Carbon Dioxide BUN 86 H Creatinine 7.4 H Glucose 222 H POC Glucose 218 H Lactic Acid Calcium 6.9 L Total Bilirubin AST ALT Lactate Dehydrogenase Total Creatine Kinase CK-MB (CK-2) Troponin T C-Reactive Protein Total Protein Albumin Cholesterol LDL Cholesterol Direct HDL Cholesterol Urine WBC (Auto) Crossmatch 03/17/19 03/17/19 03/17/19 12:09 13:06 17:37 WBC RBC Hgb Hct MCV MCHC RDW Plt Count [place] # Seg Neuts % (Manual) Lymphocytes % (Manual) Monocytes % (Manual) Nucleated RBC % Seg Neutrophils # Seg Neutrophils # Man Lymphocytes # (Manual) Monocytes # (Manual) INR POC ABG pH POC ABG pCO2 POC ABG pO2 Potassium Chloride Carbon Dioxide BUN Creatinine Glucose POC Glucose 246 H 253 H Lactic Acid Calcium Total Bilirubin AST ALT Lactate Dehydrogenase Total Creatine Kinase CK-MB (CK-2) Troponin T C-Reactive Protein Total Protein Albumin Cholesterol LDL Cholesterol Direct HDL Cholesterol Urine WBC (Auto) Crossmatch See Detail 03/18/19 03/18/19 03/18/19 00:06 04:49 05:43 WBC RBC Hgb Hct MCV MCHC RDW Plt Count [place] # Seg Neuts % (Manual) Lymphocytes % (Manual) Monocytes % (Manual) Nucleated RBC % Seg Neutrophils # Seg Neutrophils # Man Lymphocytes # (Manual) Monocytes # (Manual) INR POC ABG pH 7.569 H POC ABG pCO2 30.6 L POC ABG pO2 Potassium Chloride Carbon Dioxide BUN Creatinine Glucose POC Glucose 233 H 310 H Lactic Acid Calcium Total Bilirubin AST ALT Lactate Dehydrogenase Total Creatine Kinase CK-MB (CK-2) Troponin T C-Reactive Protein Total Protein Albumin Cholesterol LDL Cholesterol Direct HDL Cholesterol Urine WBC (Auto) Crossmatch 03/18/19 03/18/19 03/18/19 05:45 12:09 17:43 WBC 28.3 H RBC 2.50 L Hgb 8.1 L Hct 23.4 L MCV MCHC 35 H RDW 17.7 H Plt Count 36 L [place] # Seg Neuts % (Manual) 0 L Lymphocytes % (Manual) 4.0 L Monocytes % (Manual) Nucleated RBC % 1.0 H Seg Neutrophils # Seg Neutrophils # Man 0.0 L Lymphocytes # (Manual) 1.1 L Monocytes # (Manual) 1.4 H INR POC ABG pH POC ABG pCO2 POC ABG pO2 Potassium Chloride Carbon Dioxide BUN Creatinine Glucose POC Glucose 258 H 252 H Lactic Acid Calcium Total Bilirubin AST ALT Lactate Dehydrogenase Total Creatine Kinase CK-MB (CK-2) Troponin T C-Reactive Protein Total Protein Albumin Cholesterol LDL Cholesterol Direct HDL Cholesterol Urine WBC (Auto) Crossmatch 03/19/19 03/19/19 03/19/19 00:04 06:15 06:15 WBC RBC Hgb Hct MCV MCHC RDW Plt Count [place] # Seg Neuts % (Manual) Lymphocytes % (Manual) Monocytes % (Manual) Nucleated RBC % Seg Neutrophils # Seg Neutrophils # Man Lymphocytes # (Manual) Monocytes # (Manual) INR POC ABG pH POC ABG pCO2 POC ABG pO2 Potassium Chloride 96.7 L Carbon Dioxide BUN 60 H Creatinine 5.4 H Glucose 249 H POC Glucose 215 H Lactic Acid Calcium 7.6 L Total Bilirubin AST ALT Lactate Dehydrogenase 853 H Total Creatine Kinase CK-MB (CK-2) Troponin T C-Reactive Protein Total Protein Albumin Cholesterol LDL Cholesterol Direct HDL Cholesterol Urine WBC (Auto) Crossmatch 0703/19/19 03/19/19 06:17 12:51 18:18 WBC RBC Hgb Hct MCV MCHC RDW Plt Count [place] # Seg Neuts % (Manual) Lymphocytes % (Manual) Monocytes % (Manual) Nucleated RBC % Seg Neutrophils # Seg Neutrophils # Man Lymphocytes # (Manual) Monocytes # (Manual) INR POC ABG pH POC ABG pCO2 POC ABG pO2 Potassium Chloride Carbon Dioxide BUN Creatinine Glucose POC Glucose 301 H 278 H 252 H Lactic Acid Calcium Total Bilirubin AST ALT Lactate Dehydrogenase Total Creatine Kinase CK-MB (CK-2) Troponin T C-Reactive Protein Total Protein Albumin Cholesterol LDL Cholesterol Direct HDL Cholesterol Urine WBC (Auto) Crossmatch 03/19/19 03/20/19 03/20/19 23:58 04:45 04:45 WBC 39.9 H RBC 2.51 L Hgb 8.0 L Hct 24.1 L MCV 96 H MCHC RDW 18.2 H Plt Count 51 L [place] # Seg Neuts % (Manual) Lymphocytes % (Manual) Monocytes % (Manual) Nucleated RBC % Seg Neutrophils # Seg Neutrophils # Man Lymphocytes # (Manual) Monocytes # (Manual) INR POC ABG pH POC ABG pCO2 POC ABG pO2 Potassium Chloride Carbon Dioxide BUN 51 H Creatinine 5.1 H Glucose 221 H POC Glucose 233 H Lactic Acid Calcium 7.8 L Total Bilirubin AST ALT Lactate Dehydrogenase Total Creatine Kinase CK-MB (CK-2) Troponin T C-Reactive Protein Total Protein Albumin Cholesterol LDL Cholesterol Direct HDL Cholesterol Urine WBC (Auto) Crossmatch 03/20/19 03/20/19 03/20/19 05:52 11:43 17:48 WBC RBC Hgb Hct MCV MCHC RDW Plt Count [place] # Seg Neuts % (Manual) Lymphocytes % (Manual) Monocytes % (Manual) Nucleated RBC % Seg Neutrophils # Seg Neutrophils # Man Lymphocytes # (Manual) Monocytes # (Manual) INR POC ABG pH POC ABG pCO2 POC ABG pO2 Potassium Chloride Carbon Dioxide BUN Creatinine Glucose POC Glucose 256 H 316 H 286 H Lactic Acid Calcium Total Bilirubin AST ALT Lactate Dehydrogenase Total Creatine Kinase CK-MB (CK-2) Troponin T C-Reactive Protein Total Protein Albumin Cholesterol LDL Cholesterol Direct HDL Cholesterol Urine WBC (Auto) Crossmatch 03/21/19 03/21/19 03/21/19 00:17 06:21 08:00 WBC RBC Hgb Hct MCV MCHC RDW Plt Count [place] # Seg Neuts % (Manual) Lymphocytes % (Manual) Monocytes % (Manual) Nucleated RBC % Seg Neutrophils # Seg Neutrophils # Man Lymphocytes # (Manual) Monocytes # (Manual) INR POC ABG pH POC ABG pCO2 POC ABG pO2 Potassium Chloride Carbon Dioxide BUN Creatinine Glucose POC Glucose 212 H 256 H 285 H Lactic Acid Calcium Total Bilirubin AST ALT Lactate Dehydrogenase Total Creatine Kinase CK-MB (CK-2) Troponin T C-Reactive Protein Total Protein Albumin Cholesterol LDL Cholesterol Direct HDL Cholesterol Urine WBC (Auto) Crossmatch 03/21/19 03/21/19 03/21/19 11:15 17:50 23:27 WBC RBC Hgb Hct MCV MCHC RDW Plt Count [place] # Seg Neuts % (Manual) Lymphocytes % (Manual) Monocytes % (Manual) Nucleated RBC % Seg Neutrophils # Seg Neutrophils # Man Lymphocytes # (Manual) Monocytes # (Manual) INR POC ABG pH POC ABG pCO2 POC ABG pO2 Potassium Chloride Carbon Dioxide BUN Creatinine Glucose POC Glucose 255 H 263 H 202 H Lactic Acid Calcium Total Bilirubin AST ALT Lactate Dehydrogenase Total Creatine Kinase CK-MB (CK-2) Troponin T C-Reactive Protein Total Protein Albumin Cholesterol LDL Cholesterol Direct HDL Cholesterol Urine WBC (Auto) Crossmatch 03/22/19 03/22/19 03/22/19 05:43 11:50 13:50 WBC RBC Hgb Hct MCV MCHC RDW Plt Count [place] # Seg Neuts % (Manual) Lymphocytes % (Manual) Monocytes % (Manual) Nucleated RBC % Seg Neutrophils # Seg Neutrophils # Man Lymphocytes # (Manual) Monocytes # (Manual) INR POC ABG pH POC ABG pCO2 POC ABG pO2 Potassium Chloride Carbon Dioxide BUN Creatinine Glucose POC Glucose 254 H 241 H Lactic Acid Calcium Total Bilirubin AST ALT Lactate Dehydrogenase Total Creatine Kinase CK-MB (CK-2) Troponin T C-Reactive Protein 20.60 H Total Protein Albumin Cholesterol LDL Cholesterol Direct HDL Cholesterol Urine WBC (Auto) Crossmatch 03/22/19 03/22/19 03/22/19 13:50 18:13 23:58 WBC 23.3 H RBC 2.29 L Hgb 7.3 L Hct 21.7 L MCV 95 H MCHC RDW 18.0 H Plt Count 45 L [place] # Seg Neuts % (Manual) 1.0 L Lymphocytes % (Manual) 94.0 H Monocytes % (Manual) Nucleated RBC % 3.0 H Seg Neutrophils # Seg Neutrophils # Man 0.2 L Lymphocytes # (Manual) 21.9 H Monocytes # (Manual) 1.2 H INR POC ABG pH POC ABG pCO2 POC ABG pO2 Potassium Chloride Carbon Dioxide BUN Creatinine Glucose POC Glucose 194 H 190 H Lactic Acid Calcium Total Bilirubin AST ALT Lactate Dehydrogenase Total Creatine Kinase CK-MB (CK-2) Troponin T C-Reactive Protein Total Protein Albumin Cholesterol LDL Cholesterol Direct HDL Cholesterol Urine WBC (Auto) Crossmatch 03/23/19 03/23/19 03/23/19 04:00 04:10 05:26 WBC 33.9 H RBC 2.34 L Hgb 7.5 L Hct 22.5 L MCV 96 H MCHC RDW 18.4 H Plt Count 46 L [place] # Seg Neuts % (Manual) Lymphocytes % (Manual) Monocytes % (Manual) Nucleated RBC % Seg Neutrophils # Seg Neutrophils # Man Lymphocytes # (Manual) Monocytes # (Manual) INR POC ABG pH POC ABG pCO2 POC ABG pO2 Potassium Chloride Carbon Dioxide BUN 83 H Creatinine 7.3 H Glucose 135 H POC Glucose 152 H Lactic Acid Calcium 8.0 L Total Bilirubin AST ALT Lactate Dehydrogenase Total Creatine Kinase CK-MB (CK-2) Troponin T C-Reactive Protein Total Protein Albumin Cholesterol LDL Cholesterol Direct HDL Cholesterol Urine WBC (Auto) Crossmatch 03/23/19 03/23/19 03/23/19 13:12 17:22 22:51 WBC RBC Hgb Hct MCV MCHC RDW Plt Count [place] # Seg Neuts % (Manual) Lymphocytes % (Manual) Monocytes % (Manual) Nucleated RBC % Seg Neutrophils # Seg Neutrophils # Man Lymphocytes # (Manual) Monocytes # (Manual) INR POC ABG pH POC ABG pCO2 POC ABG pO2 Potassium Chloride Carbon Dioxide BUN Creatinine Glucose POC Glucose 202 H 187 H 155 H Lactic Acid Calcium Total Bilirubin AST ALT Lactate Dehydrogenase Total Creatine Kinase CK-MB (CK-2) Troponin T C-Reactive Protein Total Protein Albumin Cholesterol LDL Cholesterol Direct HDL Cholesterol Urine WBC (Auto) Crossmatch 03/24/19 05:30 WBC RBC Hgb Hct MCV MCHC RDW Plt Count [place] # Seg Neuts % (Manual) Lymphocytes % (Manual) Monocytes % (Manual) Nucleated RBC % Seg Neutrophils # Seg Neutrophils # Man Lymphocytes # (Manual) Monocytes # (Manual) INR POC ABG pH POC ABG pCO2 POC ABG pO2 Potassium Chloride Carbon Dioxide BUN Creatinine Glucose POC Glucose 185 H Lactic Acid Calcium Total Bilirubin AST ALT Lactate Dehydrogenase Total Creatine Kinase CK-MB (CK-2) Troponin T C-Reactive Protein Total Protein Albumin Cholesterol LDL Cholesterol Direct HDL Cholesterol Urine WBC (Auto) Crossmatch Chest x-ray: image reviewed Allied health notes reviewed: RT
[2019-03-24] MEDS ORDERED: ALBUTEIN IV ONE (15:28)
[2019-03-24] MEDS ORDERED: INTROPIN DRIP 800 MG/D5W 250 ML 800 MG/250 ML BAG IV SCH (16:00)
[2019-03-24] MEDS ORDERED: NACL 0.9% 500 ML 500 ML IV ONE (16:30)
[2019-03-24] MEDS ORDERED: LEVOPHED DRIP 4 MG/NS 250 ML 4 MG/250 ML BAG IV SCH (17:00)
[2019-03-24] MEDS ORDERED: VANCOMYCIN/NS 1 GM/250 ML 1 GM/250 ML BAG IV SCH (20:00)
[2019-03-24 20:53] VITALS: BP 116/46
--- NOTE | 2019-03-24 21:12 | Event Note ---
Date: 03/24/19 Was asked to pronounce patient No pulse or BP or cardiac rhythm Time of expiration 1630 hrs Family and daughter at bedside informed Patient is DO NOT RESUSCITATE
--- NOTE | 2019-03-25 00:07 | Death Summary ---
Summary - Providers Consults: 03/10/19 22:07 Consult to Physician [CONS] Urgent Comment: [facility] pt Consulting Provider: RAPHAEL CASTORENA Physician Instructions: Reason For Exam: s/p cardiac arrest 03/11/19 00:40 Consult to Physician [CONS] Routine Comment: Consulting Provider: MARCELLA ANTUNEZ Physician Instructions: Reason For Exam: cc 03/11/19 00:46 Consult to Physician [CONS] Routine Comment: Dr. Horton notified by Dr. Downs Consulting Provider: STEPHEN BARAHONA Physician Instructions: Reason For Exam: sepsis 03/11/19 18:04 Consult to Physician [CONS] Routine Comment: Consulting Provider: EDIL OLSON Physician Instructions: Reason For Exam: ISMAEL 03/12/19 08:53 Consult to Dietitian/Nutrition [CONS] Routine Physician Instructions: Reason For Exam: Reason for Consult: Write/Manage Tube Feeding 03/12/19 16:37 Consult to Physician [CONS] Urgent Comment: Consulting Provider: LATONIA BERMAN Physician Instructions: Reason For Exam: dialysis acccess placement 03/15/19 08:50 Consult to Physician [CONS] Routine Comment: Consulting Provider: TATO RUBIO Physician Instructions: Reason For Exam: AMS 03/15/19 12:34 Consult to Wound/ET Nurse [CONS] Urgent Reason For Exam: wound eval 03/18/19 12:57 Consult to Physician [CONS] Routine Comment: Consulting Provider: REYES CLEANING Physician Instructions: Reason For Exam: pancytopenia with abnormal differential 03/24/19 12:38 Consult to Physician [CONS] Routine Comment: Consulting Provider: GEMMA MURRELL Physician Instructions: Reason For Exam: trach and peg evaluation Attending: TYRA JACOB - summary Date of admission: 03/11/19 00:40 Date of : 03/24/19 Significant findings: Patient is a 54 yo man with a history of hypertension, DM type 2, CKD 3 and CAD s/p shents who presented to [facility] ED on 03/10/19 with SOB and cough. Dental pain with ?abscess preceded this illness. He had a PEA cardiac arrest in ED, he was intubated, stated on vasopressor and admitted to ICU. He had whole body jerking in ED due to anoxic injury. * Initial CT chest wo contrast IMPRESSION: Small pericardial effusion ET in satisfactory position. Atelectasis posterior aspects of both lungs. * Initial CT abd/pelvis wo contrast IMPRESSION: Possible mild right colonic wall thickening and trace free fluid in the right paracolic gutter and pelvis may be infectious, inflammatory or ischemic in etiology. No pneumoperitoneum or focal fluid collection to suggest abscess. Mild pericholecystic edema. No calcified gallstones. If there is concern for cholecystitis, consider follow- up ultrasound and/or nuclear medicine hepatobiliary scan. Small pericardial effusion. Coronary and peripheral arterial disease. * CT head wo contrast IMPRESSION: Nonspecific findings with some indistinctness of the basal ganglia and dean-white matter differentiation which may be seen with hypoxic ischemic brain injury * TTE on 03/11/19: Technically difficult due to body habitus, mild concentric LVH, estimated EF 40-45%, abnormal LV diastolic filling c/w impaired relaxation...no pericardial effusion Cardiopulmonary Arrest: supportive care Acute anoxic encephalopathy, Acute Hypoxic Respiratory Failure, On mechanical ventilation >96hrs. Pulmonary following Severe Sepsis with Shock: off Vasopressors. ?Dental abscess vs Group A strep. ID following Multi system Organ failure, poa Acute combined heart failure, poa: Cardiology is following DM type 2 with hyperglycemia-POA: Lantus and adjust sliding scale Insulin severe Anemia- Transfused 1 units on 03/13/19 and 03/17/19, total of 2 units, monitor cbc closely Thrombocytopenia ?DIC secondary to underlying condition: Hold Antiplatelets Pericardial effusion: Cardiology following ARF/CKD 3 due to ATN, poa with suspected progression to ESRD: on HD, Nephrology is following Morbid obesity, bmi 55.9: Counselling when more awake Severe Protein calorie malnutrition, poa: [employer] consult Acute Metabolic Encephalopathy: Neurology consulted, input noted, anoxic ischemi c brain injury Diarrhea-C,DIFF RULED OUT- SHOCK LIVER-HEPATIC FAILURE-improve bp and follow CAD by hx-POA Sacral Pressure ulcer, poa- Wound care consulted, input noted poor prognosis d/w daughter Macrina and sister Nano at bedside on 03/20/19 d/w Dr. Cleaning on 03/21/19 peripheral flow cytometry suggestive of AML via verbal report from Dr. Hatch, Dr. Cleaning will discuss with daughter White blood count increasing with fevers, antibiotics changed by ID and ID is following. Dr. Cleaning to discussed with daughter, he doesn't want to start Chemo for AML because semi-comatose. He will be around tomorrow for family meeting at 7-8pm Family meeting done with Dr. Card, patient's daughter and sister. Patient made DNR. Consult General Surgery for tracheostomy and Consult GI for PEG, once fevers poor prognosis Unfortunately, patient at 1430 Cause of : AML with Sepsis
== END 2019-03-24 16:30 | DRG 870 ==
LOC: ED 16:28 → CC1 03-11 00:40
PROVIDERS: ADMIT Internal Medicine; ATTEND Internal Medicine
PROC: 4A033R1 Measurement of Arterial Saturation, Peripheral, Percutaneous Approach (ICD-10-PCS; 2019-03-10)
PROC: 0D9670Z Drainage of Stomach with Drainage Device, Via Natural or Artificial Opening (ICD-10-PCS; 2019-03-10)
PROC: 5A1955Z Respiratory Ventilation, Greater than 96 Consecutive Hours (ICD-10-PCS; principal; 2019-03-11)
PROC: 0BH17EZ Insertion of Endotracheal Airway into Trachea, Via Natural or Artificial Opening (ICD-10-PCS; 2019-03-11)
PROC: 5A12012 Performance of Cardiac Output, Single, Manual (ICD-10-PCS; 2019-03-11)
PROC: 02HV33Z Insertion of Infusion Device into Superior Vena Cava, Percutaneous Approach (ICD-10-PCS; 2019-03-11)
PROC: B548ZZA Ultrasonography of Superior Vena Cava, Guidance (ICD-10-PCS; 2019-03-11)
PROC: 06HY33Z Insertion of Infusion Device into Lower Vein, Percutaneous Approach (ICD-10-PCS; 2019-03-12)
PROC: 5A1D70Z Performance of Urinary Filtration, Intermittent, Less than 6 Hours Per Day (ICD-10-PCS; 2019-03-12)
PROC: 5A1D70Z Performance of Urinary Filtration, Intermittent, Less than 6 Hours Per Day (ICD-10-PCS; 2019-03-13)
PROC: 30233N1 Transfusion of Nonautologous Red Blood Cells into Peripheral Vein, Percutaneous Approach (ICD-10-PCS; 2019-03-13)
PROC: 5A1D70Z Performance of Urinary Filtration, Intermittent, Less than 6 Hours Per Day (ICD-10-PCS; 2019-03-14)
PROC: 5A1D70Z Performance of Urinary Filtration, Intermittent, Less than 6 Hours Per Day (ICD-10-PCS; 2019-03-17)
PROC: 5A1D70Z Performance of Urinary Filtration, Intermittent, Less than 6 Hours Per Day (ICD-10-PCS; 2019-03-18)
PROC: 5A1D70Z Performance of Urinary Filtration, Intermittent, Less than 6 Hours Per Day (ICD-10-PCS; 2019-03-19)
PROC: 5A1D70Z Performance of Urinary Filtration, Intermittent, Less than 6 Hours Per Day (ICD-10-PCS; 2019-03-21)
PROC: 5A1D70Z Performance of Urinary Filtration, Intermittent, Less than 6 Hours Per Day (ICD-10-PCS; 2019-03-24)
DX: A40.1 Sepsis due to streptococcus, group B (principal); R65.21 Severe sepsis with septic shock; J96.21 Acute and chronic respiratory failure with hypoxia; G92 Toxic encephalopathy; N17.0 Acute kidney failure with tubular necrosis; I50.41 Acute combined systolic (congestive) and diastolic (congestive) heart failure; E43 Unspecified severe protein-calorie malnutrition; K72.00 Acute and subacute hepatic failure without coma; D61.818 Other pancytopenia; G93.1 Anoxic brain damage, not elsewhere classified; Z68.43 Body mass index [BMI] 50.0-59.9, adult; N39.0 Urinary tract infection, site not specified; I13.0 Hypertensive heart and chronic kidney disease with heart failure and stage 1 through stage 4 chronic kidney disease, or unspecified chronic kidney disease; C92.00 Acute myeloblastic leukemia, not having achieved remission; I31.3 Pericardial effusion (noninflammatory); R19.7 Diarrhea, unspecified; E11.65 Type 2 diabetes mellitus with hyperglycemia; L89.159 Pressure ulcer of sacral region, unspecified stage; I46.9 Cardiac arrest, cause unspecified; I25.10 Atherosclerotic heart disease of native coronary artery without angina pectoris; N18.3 Chronic kidney disease, stage 3 (moderate); E11.22 Type 2 diabetes mellitus with diabetic chronic kidney disease; Z82.49 Family history of ischemic heart disease and other diseases of the circulatory system; Z79.82 Long term (current) use of aspirin; Z79.899 Other long term (current) drug therapy; Z79.4 Long term (current) use of insulin; Z95.5 Presence of coronary angioplasty implant and graft; Z87.891 Personal history of nicotine dependence; Z66 Do not resuscitate
CPT/HCPCS: 36415; 36430; 36600; 70450; 70486; 70490; 71045; 71250; 74018; 74176; 76770; 80048; 80053; 80061; 80074; 80202; 81001; 82140; 82271; 82550; 82553; 82803; 82805; 82962; 83615; 83735; 84132; 84484; 84550; 85007; 85025; 85027; 85610; 85730; 86021; 86140; 86160; 86850; 86900; 86901; 86920; 87040; 87045; 87070; 87086; 87205; 87400; 87493; 88184; 88185; 93005; 93010; 93306; 94002; 94003; 94640; 95819; G0378; C9113; J0171; J0692; J0696; J1265; J1815; J2060; J2405; J2543; J2704; J3010; J3370; J7030; J7040; J7070; P9016; P9045